=== PATIENT | female | born 1950 | race Caucasian/White ===

== ENCOUNTER 2018-02-04 19:56 | Day surgery (SDC) | payer MEDICARE, MEDICAID ==
[~2018-02-04] VITALS: Ht 167.6 cm; Wt 95.3 kg
--- OUTSIDE RECORDS SUMMARY | 2018-02-04 20:02 | XMS REPORT ---
Author Author FILI BAUMAN [facility] Address Unknown Phone Unavailable Care Team Providers Care Sanitation Associate Name Role Phone Dr. CISCO FRANKLIN PCP Unavailable Allergies Allergy Description Allergy Type No Known Drug Allergies Propensity to adverse reactions Procedures Procedure Type Procedure Description Date Physicians No codified procedures found for this patient. Results URINALYSIS Observation Test Name Observation Test Result Observation Test Units Observation Test Date Observation Test Time Color YELLOW 2012 12:13 Character CLEAR 12/24 12:13 Glucose NEGATIVE 08/2012 12:13 Bilirubin NEGATIVE 12:13 Ketones NEGATIVE 08/2012 12:13 Sp [place] >=1.030 12:13 Ph 6.0 12/24/2012 12:13 Protein NEGATIVE 08/2012 12:13 Urobilinogen 0.2 08/2012 12:13 Nitrite NEGATIVE 08/2012 12:13 Blood NEGATIVE H 08/2012 12:13 Leukocytes TRACEH 08/2012 12:13 Microscopic See Below 12/24/2012 12:13 Urine Volume 12 ml 12:13 Specimen Type SPUN 12:13 Bacteria RARE (0-10) 12/24/2012 12:13 WBC/ 0-2 12/24/2012 12:13 Culture Not indicat 12/24/2012 12:13 History of Immunizations Immunization Date no immunization entries Plan of Care Item Text No plan of care items. Procedure Date/Time/Initials Critical? Status No plan of care procedures. Medication List Medication Dose Units Frequency Start Date/Time Status none Problem List Problem Entered Date Resolved Date No known problems
--- OUTSIDE RECORDS SUMMARY | 2018-02-04 20:02 | XMS REPORT ---
Author Author FILI BAUMAN [facility] Address Unknown Phone Unavailable Care Team Providers Care Director Rehabilitation Program Name Role Phone Dr. CISCO FRANKLIN PCP Unavailable Allergies Allergy Description Allergy Type No Known Drug Allergies Propensity to adverse reactions Procedures Procedure Type Procedure Description Date Physicians No codified procedures found for this patient. Results No Procedures Performed Observation Test Name Observation Test Result Observation Test Units Observation Test Date Observation Test Time No result observations. Results Transcriptions Result Description Result Date Result Time XR FOOT LT COMPLETE, MIN OF 3 VIEWS 12/02/12 16:16 XR ANKLE LT COMPLETE, MIN OF 3 VIEWS 12/02/12 16:16 History of Immunizations Immunization Date no immunization entries Plan of Care Item Text No plan of care items. Procedure Date/Time/Initials Critical? Status No plan of care procedures. Medication List Medication Dose Units Frequency Start Date/Time Status none Problem List Problem Entered Date Resolved Date No known problems
--- OUTSIDE RECORDS SUMMARY | 2018-02-04 20:02 | XMS REPORT ---
Author Author FILI BAUMAN [facility] Address Unknown Phone Unavailable Care Team Providers Care Armor Senior Sergeant Name Role Phone Dr. CISCO FRANKLIN PCP [...] Transcriptions Result Description Result Date Result Time US RETROPERITONEAL COMPLETE 01/02/13 10: 44 CT ABDOMEN/PELVIS W/O CONTRAST 01/02/13 10:32 History of Immunizations Immunization Date no immunization entries Plan of Care Item Text No plan of care items. Procedure Date/Time/Initials Critical? Status No plan of care procedures. Medication List Medication Dose Units Frequency Start Date/Time Status none Problem List Problem Entered Date Resolved Date No known problems
--- OUTSIDE RECORDS SUMMARY | 2018-02-04 20:03 | XMS REPORT ---
Author Author Rogelio Prado Organization [facility] Address [address], [address] [place], [place] [address] Care Team Providers Care Tour Guide Name Role Phone Rogelio Prado Unavailable PROBLEMS Type Condition ICD9-CM Code EGE35-RO Code Onset Dates Condition Status SNOMED Code Problem Postmenopausal Z78.0 Active 03404751 Problem Intellectual disability F79 Active 37607316 Problem COPD (chronic obstructive pulmonary disease) J44.9 Active 09010017 Problem Hyperlipidemia E78.5 Active 18136210 Problem Hypertension I10 Active 21769768 Problem Depression, unspecified depression type F32.9 Active 06091658 Problem COPD (chronic obstructive pulmonary disease) with acute bronchitis J44.0 Active 423351005613872 Problem Angina pectoris I20.9 Active 125593368 Problem COPD exacerbation J44.1 Active 626516716 Problem Chronic obstructive pulmonary disease, unspecified COPD type J44.9 Active 97949062 Problem Constipation K59.00 Active 13936928 ALLERGIES Unknown Allergies SOCIAL HISTORY No smoking Hx information available PLAN OF CARE VITAL SIGNS MEDICATIONS Medication Instructions Dosage Frequency Start Date End Date Duration Status Levofloxacin 500 MG Orally Once a day 1 tablet 24h Dec, 5 days Active Symbicort 160-4.5 Inhalation Twice a day INHALE TWO PUFFS BY MOUTH EVERY 12 HOURS 12h 30 Active RESULTS No Results PROCEDURES No Known procedures IMMUNIZATIONS No Known Immunizations
--- OUTSIDE RECORDS SUMMARY | 2018-02-04 20:03 | XMS REPORT ---
Author Author Rogelio Prado Organization [facility] Address [address], [address] [place], [place] [address] Care Team Providers Care Roll Table Operator Name Role Phone Rogelio Prado Unavailable PROBLEMS Type Condition ICD9-CM Code [id number] Code Onset Dates Condition Status SNOMED Code Problem Postmenopausal Z78.0 Active 60528902 Problem Intellectual disability F79 Active 65609725 Problem COPD (chronic obstructive pulmonary disease) J44.9 Active 66755561 Assessment Urinary frequency R35.0 Sep, Active 139804843 Problem Hyperlipidemia E78.5 Active 14992926 Problem Hypertension I10 Active 23125433 Problem Depression, unspecified depression type F32.9 Active 85707302 Problem COPD (chronic obstructive pulmonary disease) with acute bronchitis J44.0 Active 360555541568421 Problem Angina pectoris I20.9 Active 220820426 Problem COPD exacerbation J44.1 Active 531931471 Problem Chronic obstructive pulmonary disease, unspecified COPD type J44.9 Active 26362374 Problem Constipation K59.00 Active 52673081 ALLERGIES Unknown Allergies SOCIAL HISTORY No smoking Hx information available PLAN OF CARE Activity Details Pending Test IH Urinalysis, dipstick only ,Reason: VITAL SIGNS MEDICATIONS Medication Instructions Dosage Frequency Start Date End Date Duration Status Mucinex 600 MG Orally every 12 hrs 1 tablet as needed 12h Active Trazodone HCl 100 MG Orally Once a day 1.5 tablet at bedtime 24h Active Ventolin HFA 108 (90 Base) MCG/ACT Inhalation every 4 hrs 2 puffs as needed 4h Active Nitrostat 0.4 MG Sublingual prn as directed Jan, Active Aspirin Adult Low Dose 81 MG Orally Once a day 1-2 tablet 24h Active Lisinopril-Hydrochlorothiazide 20-12.5 Orally Once a day 1 tablet 24h Active Multivitamin Adult - Active Albuterol Sulfate 2.5 mg Inhalation every 4 hrs prn 3 ml 4 Active Macrobid 100 MG Orally every 12 hrs 1 capsule with food 12h Jul, 7 day(s) Active Naproxen 375 MG Orally Twice a day 1 tablet 12h 30 days Active Symbicort 160-4.5 INHALE TWO PUFFS BY MOUTH EVERY 12 HOURS 30 Active Nexium 40 TAKE ONE CAPSULE BY MOUTH DAILY 30 Active Claritin 10 TAKE ONE TABLET BY MOUTH DAILY 90 Active Nitrostat 0.4 Sublingual prn as directed 30 Active Metoprolol Tartrate 50 TAKE ONE TABLET BY MOUTH TWICE A DAY 30 Active Flonase 50 USE ONE SPRAY IN EACH NOSTRIL TWO TIMES A DAY 30 Active Sulfamethoxazole-Trimethoprim 800-160 MG Orally Twice a day 1 tablet 12h Aug, 7 days Active Celexa 40 MG Orally Once a day 0.5 tablet 24h Active Albuterol Sulfate (2.5 MG/3ML) 0.083% Inhalation every 4 hrs prn 3 ml Jun, 30 days Active RESULTS No Results PROCEDURES Procedure Date Ordered Related Diagnosis Body Site URINE-NO MICRO September 27, 2016 IMMUNIZATIONS No Known Immunizations
--- OUTSIDE RECORDS SUMMARY | 2018-02-04 20:03 | XMS REPORT ---
Author Author Rogelio Prado Organization [facility] Address [address], [address] [place], [place] [address] Care Team Providers Care Snap Shearer Name Role Phone Rogelio Prado Unavailable PROBLEMS Type Condition ICD9-CM Code [id number] Code Onset Dates Condition Status SNOMED Code Problem Postmenopausal Z78.0 Active 10344314 Problem Intellectual disability F79 Active 30696469 Problem COPD (chronic obstructive pulmonary disease) J44.9 Active 97973257 Problem Hyperlipidemia E78.5 Active 95649334 Problem Hypertension I10 Active 08774370 Problem Depression, unspecified depression type F32.9 Active 26400495 Problem COPD (chronic obstructive pulmonary disease) with acute bronchitis J44.0 Active 473431831605769 Problem Angina pectoris I20.9 Active 413550524 Problem COPD exacerbation J44.1 Active 211708998 Problem Chronic obstructive pulmonary disease, unspecified COPD type J44.9 Active 81439729 Problem Constipation K59.00 Active 28231100 ALLERGIES Unknown Allergies SOCIAL HISTORY No smoking Hx information available PLAN OF CARE VITAL SIGNS MEDICATIONS Unknown Medications RESULTS No Results PROCEDURES No Known procedures IMMUNIZATIONS No Known Immunizations
--- OUTSIDE RECORDS SUMMARY | 2018-02-04 20:03 | XMS REPORT ---
Author Author Sarina Turk [facility] Address [address], [address] [place], [place] [address] Care Team Providers Care Section Leader And Machine Setter Name Role Phone OsminSarina garland Unavailable PROBLEMS Type Condition ICD9-CM Code [id number] Code Onset Dates Condition Status SNOMED Code Problem Postmenopausal Z78.0 Active 01903715 Problem Intellectual disability F79 Active 34737656 Problem COPD (chronic obstructive pulmonary disease) J44.9 Active 13476593 Assessment Acute cystitis with hematuria N30.01 Sep, Active 54776056 Problem Hyperlipidemia E78.5 Active 82439882 Problem Hypertension I10 Active 56164555 Problem Depression, unspecified depression type F32.9 Active 18217776 Problem COPD (chronic obstructive pulmonary disease) with acute bronchitis J44.0 Active 588779847611973 Problem Angina pectoris I20.9 Active 361016805 Problem COPD exacerbation J44.1 Active 999261994 Problem Chronic obstructive pulmonary disease, unspecified COPD type J44.9 Active 38046685 Problem Constipation K59.00 Active 26159424 ALLERGIES Substance Reaction Event Type Date Status PCN Unknown Drug Allergy Sep, Active Zithromax Unknown Drug Allergy Sep, Active SOCIAL HISTORY No smoking Hx information available PLAN OF CARE VITAL SIGNS Weight 204.7 lbs 2016-09-28 Heart Rate 70 /min 2016-09-28 Height 64 in 2016-09-28 BMI 35.13 kg/m2 2016-09-28 Blood pressure systolic 142 mm Hg 2016-09-28 Blood pressure diastolic 92 mm Hg 2016-09-28 MEDICATIONS Medication Instructions Dosage Frequency Start Date End Date Duration Status Nitrostat 0.4 Sublingual prn as directed 30 Active Celexa 40 MG Orally Once a day 0.5 tablet 24h Active Symbicort 160-4.5 INHALE TWO PUFFS BY MOUTH EVERY 12 HOURS 30 Active Albuterol Sulfate (2.5 MG/3ML) 0.083% Inhalation every 4 hrs prn 3 ml 20 Jun, 2016 30 days Active Claritin 10 TAKE ONE TABLET BY MOUTH DAILY 90 Active Metoprolol Tartrate 50 TAKE ONE TABLET BY MOUTH TWICE A DAY 30 Active Nitrostat 0.4 MG Sublingual prn as directed Jan, Active Aspirin Adult Low Dose 81 MG Orally Once a day 1-2 tablet 24h Active Linzess 145 MCG PO QD 1 capsule 24h Active Alendronate Sodium 5 MG Orally Once a day 1 tablet 24h May, 30 day(s) Active Flonase 50 USE ONE SPRAY IN EACH NOSTRIL TWO TIMES A DAY 30 Active Ventolin HFA 108 (90 Base) MCG/ACT Inhalation every 4 hrs 2 puffs as needed 4h Active Multivitamin Adult - Active Meloxicam 7.5 TAKE ONE TABLET BY MOUTH TWICE A DAY 30 Active Nexium 40 TAKE ONE CAPSULE BY MOUTH DAILY 30 Active Bactrim DS 800-160 MG Orally Twice a day 1 tablet 12h Sep, 7 days Active Lisinopril-Hydrochlorothiazide 20-12.5 Orally Once a day 1 tablet 24h Active Trazodone HCl 100 MG Orally Once a day 1.5 tablet at bedtime 24h Active RESULTS Name Result Date Reference Range IH Urinalysis, dipstick only Specific [place] 1.015 pH 6 Leukocytes +1 Nitrates tr Protein +1 Glucose neg Ketones neg Urobilinogen +1 Bilirubin neg Blood +1 PROCEDURES Procedure Date Ordered Related Diagnosis Body Site URINE-NO MICRO September 28, 2016 Office Visit, Est Pt., Level 3 September 28, 2016 IMMUNIZATIONS No Known Immunizations
--- OUTSIDE RECORDS SUMMARY | 2018-02-04 20:03 | XMS REPORT ---
Author Author Rogelio Prado Organization [facility] Address [address], [address] [place], [place] [address] Care Team Providers Care Professor Of Early Childhood Education Name Role Phone Rogelio Prado Unavailable PROBLEMS Type Condition ICD9-CM Code PIP48-HS Code Onset Dates Condition Status SNOMED Code Problem COPD (chronic obstructive pulmonary disease) J44.9 Active 48327998 Problem COPD exacerbation J44.1 Active 033030005 Problem Intellectual disability F79 Active 71199315 Problem Hyperlipidemia E78.5 Active 76564848 Problem Hypertension I10 Active 87188426 Problem Postmenopausal Z78.0 Active 68877878 Problem Closed fracture of one rib of right side with routine healing, subsequent encounter S22.31XD Active 91018009 Problem Depression, unspecified depression type F32.9 Active 50286126 Problem Constipation K59.00 Active 56877690 Problem Angina pectoris I20.9 Active 258470040 Problem COPD (chronic obstructive pulmonary disease) with acute bronchitis J44.0 Active 953705367710026 Problem Chronic obstructive pulmonary disease, unspecified COPD type J44.9 Active 35985070 ALLERGIES Substance Reaction Event Type Date Status PCN Unknown Drug Allergy Feb, Active Zithromax Unknown Drug Allergy Feb, Active SOCIAL HISTORY Never Assessed PLAN OF CARE Activity Details Follow Up 3 Months Reason: VITAL SIGNS Weight 205.3 lbs 2017-03-12 Heart Rate 78 /min 2017-03-12 Height 64 in 2017-03-12 BMI 35.24 kg/m2 2017-03-12 Blood pressure systolic 94 mm Hg 2017-03-12 Blood pressure diastolic 80 mm Hg 2017-03-12 MEDICATIONS Medication Instructions Dosage Frequency Start Date End Date Duration Status Celexa 40 MG Orally Once a day 0.5 tablet 24h Active Nexium 40 TAKE ONE CAPSULE BY MOUTH DAILY 30 Active Nitrostat 0.4 MG Sublingual prn as directed Jan, Active Trazodone HCl 100 MG Orally Once a day 1.5 tablet at bedtime 24h Active Linzess 145 MCG PO QD 1 capsule 24h Active Lisinopril-Hydrochlorothiazide 20-12.5 Orally Once a day 1 tablet 24h 90 days Active Albuterol Sulfate (2.5 MG/3ML) 0.083% Inhalation every 4 hrs prn 3 ml Jun, 30 days Active Alendronate Sodium 5 MG Orally Once a day 1 tablet 24h May, 30 day(s) Active Meloxicam 7.5 TAKE ONE TABLET BY MOUTH TWICE A DAY 30 Active Metoprolol Tartrate 50 TAKE ONE TABLET BY MOUTH TWICE A DAY 30 Active Multivitamin Adult - Active Triamcinolone Acetonide 0.1 APPLY TO AFFECTED AREA(S) TWO TIMES A DAY 30 Active Ventolin HFA 108 (90 Base) MCG/ACT Inhalation every 4 hrs 2 puffs as needed 4h Active Claritin 10 TAKE ONE TABLET BY MOUTH DAILY 90 Active Flonase 50 USE ONE SPRAY IN EACH NOSTRIL TWO TIMES A DAY 30 Active Aspirin Adult Low Dose 81 MG Orally Once a day 1-2 tablet 24h Active Symbicort 160-4.5 Inhalation Twice a day INHALE TWO PUFFS BY MOUTH EVERY 12 HOURS 12h 30 Active RESULTS No Results PROCEDURES Procedure Date Ordered Result Body Site * Flu vaccine, adult Mar 12, 2017 IMMUNIZATIONS Vaccine Route Administration Date Status * Flu vaccine, adult IM Intramuscular Mar 12, 2017 Administered MEDICAL (GENERAL) HISTORY Type Description Date Medical History Hypertension Medical History Generalized osteoarthrosis, unspecified site Medical History Cataracts, bilateral Medical History Anxiety state, unspecified Medical History Major depressive disorder, recurrent episode, moderate Medical History Urinary incontinence Medical History Renal stone Medical History Urticaria Medical History Chronic airway obstruction Medical History Posterior cervical lymphadenopathy Medical History Costochondritis Medical History Easy bruising Medical History Arthralgia Medical History Myalgia Medical History Dyspareunia Medical History Prolapse of female pelvic organs Medical History COPD (chronic obstructive pulmonary disease) Medical History Intellectual disability Medical History COPD exacerbation Medical History Closed fracture of one rib of right side with routine healing , subsequent encounter Surgical History cholecystectomy Surgical History LAITH-BSO 1970 Surgical History bladder mesh Surgical History section Surgical History ankle surgery Hospitalization History pneumonia 12/2016
--- OUTSIDE RECORDS SUMMARY | 2018-02-04 20:03 | XMS REPORT ---
Author Author Rogelio Prado Organization [facility] Address [address], [address] [place], [place] [address] Care Team Providers Care Carpentry Foreman Name Role Phone Rogelio Prado Unavailable PROBLEMS Type Condition ICD9-CM Code [id number] Code Onset Dates Condition Status SNOMED Code Problem Postmenopausal Z78.0 Active 75293804 Problem Intellectual disability F79 Active 36113356 Problem COPD (chronic obstructive pulmonary disease) J44.9 Active 14096310 Problem Hyperlipidemia E78.5 Active 81431661 Problem Hypertension I10 Active 06740620 Problem Depression, unspecified depression type F32.9 Active 10108609 Problem COPD (chronic obstructive pulmonary disease) with acute bronchitis J44.0 Active 160258936779829 Problem Angina pectoris I20.9 Active 825038481 Problem COPD exacerbation J44.1 Active 375244962 Problem Chronic obstructive pulmonary disease, unspecified COPD type J44.9 Active 12770680 Problem Constipation K59.00 Active 05461463 ALLERGIES Unknown Allergies SOCIAL HISTORY No smoking Hx information available PLAN OF CARE VITAL SIGNS MEDICATIONS Unknown Medications RESULTS No Results PROCEDURES No Known procedures IMMUNIZATIONS No Known Immunizations
--- OUTSIDE RECORDS SUMMARY | 2018-02-04 20:03 | XMS REPORT ---
Author Author Rogelio Prado Organization [facility] Address [address], [address] [place], [place] [address] Care Team Providers Care Center Aisle Cashier Name Role Phone Rogelio Prado Unavailable PROBLEMS Type Condition ICD9-CM Code [id number] Code Onset Dates Condition Status SNOMED Code Problem Postmenopausal Z78.0 Active 63862791 Problem Intellectual disability F79 Active 39368483 Problem COPD (chronic obstructive pulmonary disease) J44.9 Active 30959149 Problem Hyperlipidemia E78.5 Active 40193879 Problem Hypertension I10 Active 59285817 Problem Depression, unspecified depression type F32.9 Active 72158427 Problem COPD (chronic obstructive pulmonary disease) with acute bronchitis J44.0 Active 517267535484609 Problem Angina pectoris I20.9 Active 813073013 Problem COPD exacerbation J44.1 Active 033259910 Problem Chronic obstructive pulmonary disease, unspecified COPD type J44.9 Active 53946217 Problem Constipation K59.00 Active 70602518 ALLERGIES Unknown Allergies SOCIAL HISTORY No smoking Hx information available PLAN OF CARE VITAL SIGNS MEDICATIONS Medication Instructions Dosage Frequency Start Date End Date Duration Status Lisinopril-Hydrochlorothiazide 20-12.5 Orally Once a day 1 tablet 24h 90 days Active RESULTS No Results PROCEDURES No Known procedures IMMUNIZATIONS No Known Immunizations
--- OUTSIDE RECORDS SUMMARY | 2018-02-04 20:04 | XMS REPORT ---
Author Author Rogelio Prado Organization [facility] Address [address], [address] [place], [place] [address] Care Team Providers Care Cast Iron Drain Pipe Layer Name Role Phone Rogelio Prado Unavailable PROBLEMS Type Condition ICD9-CM Code HDK50-RB Code Onset Dates Condition Status SNOMED Code Problem COPD (chronic obstructive pulmonary disease) J44.9 Active 88346869 Problem COPD exacerbation J44.1 Active 722325092 Problem Intellectual disability F79 Active 82446816 Problem Hyperlipidemia E78.5 Active 21765257 Problem Hypertension I10 Active 96407173 Problem Postmenopausal Z78.0 Active 28381955 Problem Closed fracture of one rib of right side with routine healing, subsequent encounter S22.31XD Active 67342943 Problem Depression, unspecified depression type F32.9 Active 34651372 Problem Constipation K59.00 Active 97139662 Problem Angina pectoris I20.9 Active 834875381 Problem COPD (chronic obstructive pulmonary disease) with acute bronchitis J44.0 Active 787296844535842 Problem Chronic obstructive pulmonary disease, unspecified COPD type J44.9 Active 26074110 ALLERGIES No Information SOCIAL HISTORY Never Assessed PLAN OF CARE VITAL SIGNS MEDICATIONS Medication Instructions Dosage Frequency Start Date End Date Duration Status Lisinopril-Hydrochlorothiazide 20-12.5 Orally bid 1 tablet 12h 90 days Active RESULTS No Results PROCEDURES No Known procedures IMMUNIZATIONS No Known Immunizations MEDICAL (GENERAL) HISTORY Type Description Date Medical [...] encounter Surgical History cholecystectomy Surgical History LAITH-BSO 1969 Surgical History bladder mesh Surgical History section Surgical History ankle surgery Hospitalization History pneumonia 12/2016
--- OUTSIDE RECORDS SUMMARY | 2018-02-04 20:04 | XMS REPORT ---
Author Author Rogelio Prado Organization [facility] Address [address], [address] [place], [place] [address] Care Team Providers Care Reticle Printer Name Role Phone Rogelio Prado Unavailable PROBLEMS Type Condition ICD9-CM Code [id number] Code Onset Dates Condition Status SNOMED Code Problem Postmenopausal Z78.0 Active 42243381 Problem Intellectual disability F79 Active 46771084 Problem COPD (chronic obstructive pulmonary disease) J44.9 Active 19120067 Problem Hyperlipidemia E78.5 Active 23420368 Problem Hypertension I10 Active 95006204 Problem Depression, unspecified depression type F32.9 Active 07551885 Problem COPD (chronic obstructive pulmonary disease) with acute bronchitis J44.0 Active 526171436733881 Problem Angina pectoris I20.9 Active 465130595 Problem COPD exacerbation J44.1 Active 722524420 Problem Chronic obstructive pulmonary disease, unspecified COPD type J44.9 Active 84959285 Problem Constipation K59.00 Active 31550866 ALLERGIES Unknown Allergies SOCIAL HISTORY No smoking Hx information available PLAN OF CARE VITAL SIGNS MEDICATIONS Medication Instructions Dosage Frequency Start Date End Date Duration Status Guaifenesin-Codeine 100-10 MG/5ML Orally every 4 hrs prn 5 ml Jan, 15 days Active RESULTS No Results PROCEDURES No Known procedures IMMUNIZATIONS No Known Immunizations
--- OUTSIDE RECORDS SUMMARY | 2018-02-04 20:04 | XMS REPORT ---
Author Author Rogelio Prado Organization [facility] Address [address], [address] [place], [place] [address] Care Team Providers Care Supervisor Blasting Name Role Phone Rogelio Prado Unavailable PROBLEMS Type Condition ICD9-CM Code RKD25-MS Code Onset Dates Condition Status SNOMED Code Problem Postmenopausal Z78.0 Active 13785820 Problem Intellectual disability F79 Active 54284034 Problem COPD (chronic obstructive pulmonary disease) J44.9 Active 62839114 Problem Hyperlipidemia E78.5 Active 84476355 Problem Hypertension I10 Active 77419008 Problem Depression, unspecified depression type F32.9 Active 44739270 Problem COPD (chronic obstructive pulmonary disease) with acute bronchitis J44.0 Active 556198804559112 Problem Angina pectoris I20.9 Active 296947241 Problem COPD exacerbation J44.1 Active 153253140 Problem Chronic obstructive pulmonary disease, unspecified COPD type J44.9 Active 63789077 Problem Constipation K59.00 Active 85991188 ALLERGIES Unknown Allergies SOCIAL HISTORY No smoking Hx information available PLAN OF CARE VITAL SIGNS MEDICATIONS Unknown Medications RESULTS No Results PROCEDURES No Known procedures IMMUNIZATIONS No Known Immunizations
--- OUTSIDE RECORDS SUMMARY | 2018-02-04 20:04 | XMS REPORT ---
Author Author Rogelio Prado Organization [facility] Address [address], [address] [place], [place] [address] Care Team Providers Care Satellite Dish Installer Name Role Phone Rogelio Prado Unavailable PROBLEMS Type Condition ICD9-CM Code [id number] Code Onset Dates Condition Status SNOMED Code Problem Postmenopausal Z78.0 Active 28147204 Problem Intellectual disability F79 Active 82265744 Problem COPD (chronic obstructive pulmonary disease) J44.9 Active 93070445 Problem Hyperlipidemia E78.5 Active 35997091 Problem Hypertension I10 Active 40413452 Problem Depression, unspecified depression type F32.9 Active 87035796 Problem COPD (chronic obstructive pulmonary disease) with acute bronchitis J44.0 Active 574655258450135 Problem Angina pectoris I20.9 Active 317523667 Problem COPD exacerbation J44.1 Active 441469166 Problem Chronic obstructive pulmonary disease, unspecified COPD type J44.9 Active 50741852 Problem Constipation K59.00 Active 64441156 ALLERGIES Unknown Allergies SOCIAL HISTORY No smoking Hx information available PLAN OF CARE VITAL SIGNS MEDICATIONS Unknown Medications RESULTS No Results PROCEDURES No Known procedures IMMUNIZATIONS No Known Immunizations
--- OUTSIDE RECORDS SUMMARY | 2018-02-04 20:04 | XMS REPORT ---
Author Author Rogelio Prado Organization [facility] Address [address], [address] [place], [place] [address] Care Team Providers Care Supervisor Order Takers Name Role Phone Rogelio Prado Unavailable PROBLEMS Type Condition ICD9-CM Code [id number] Code Onset Dates Condition Status SNOMED Code Problem Postmenopausal Z78.0 Active 11267794 Problem Intellectual disability F79 Active 63119358 Problem COPD (chronic obstructive pulmonary disease) J44.9 Active 66408044 Problem Hyperlipidemia E78.5 Active 46442714 Problem Hypertension I10 Active 63878859 Problem Depression, unspecified depression type F32.9 Active 51622427 Problem COPD (chronic obstructive pulmonary disease) with acute bronchitis J44.0 Active 763934198046428 Problem Angina pectoris I20.9 Active 751201073 Problem COPD exacerbation J44.1 Active 637640804 Problem Chronic obstructive pulmonary disease, unspecified COPD type J44.9 Active 30907960 Problem Constipation K59.00 Active 25059907 ALLERGIES Unknown Allergies SOCIAL HISTORY No smoking Hx information available PLAN OF CARE VITAL SIGNS MEDICATIONS Unknown Medications RESULTS No Results PROCEDURES No Known procedures IMMUNIZATIONS No Known Immunizations
--- OUTSIDE RECORDS SUMMARY | 2018-02-04 20:04 | XMS REPORT ---
Author Author [place] City[place] [facility] Address [address], [address] [place], [place] [address] Care Team Providers Care Side Seam Tender Name Role Phone Jaimie Rodriguez Unavailable PROBLEMS Type Condition ICD9-CM Code [id number] Code Onset Dates Condition Status SNOMED Code Problem Postmenopausal Z78.0 Active 49777332 Problem Intellectual disability F79 Active 30258246 Problem COPD (chronic obstructive pulmonary disease) J44.9 Active 99339829 Problem Hyperlipidemia E78.5 Active 10868300 Problem Hypertension I10 Active 60620466 Problem Depression, unspecified depression type F32.9 Active 26531526 Problem COPD (chronic obstructive pulmonary disease) with acute bronchitis J44.0 Active 411609844463342 Problem Angina pectoris I20.9 Active 245147120 Problem COPD exacerbation J44.1 Active 442643302 Problem Chronic obstructive pulmonary disease, unspecified COPD type J44.9 Active 75364723 Problem Constipation K59.00 Active 62964322 ALLERGIES Substance Reaction Event Type Date Status PCN Unknown Drug Allergy Jan, Active Zithromax Unknown Drug Allergy Jan, Active SOCIAL HISTORY No smoking Hx information available PLAN OF CARE Activity Details Follow Up prn Reason: VITAL SIGNS Weight 208 lbs 2017-01-28 Heart Rate 68 /min 2017-01-28 Height 64 in 2017-01-28 BMI 35.70 kg/m2 2017-01-28 Blood pressure systolic 120 mm Hg 2017-01-28 Blood pressure diastolic 72 mm Hg 2017-01-28 MEDICATIONS Medication Instructions Dosage Frequency Start Date End Date Duration Status Celexa 40 MG Orally Once a day 0.5 tablet 24h Active Alendronate Sodium 5 MG Orally Once a day 1 tablet 24h May, 30 day(s) Active Ventolin HFA 108 (90 Base) MCG/ACT Inhalation every 4 hrs 2 puffs as needed 4h Active Claritin 10 TAKE ONE TABLET BY MOUTH DAILY 90 Active Nexium 40 TAKE ONE CAPSULE BY MOUTH DAILY 30 Active Meloxicam 7.5 TAKE ONE TABLET BY MOUTH TWICE A DAY 30 Active Albuterol Sulfate (2.5 MG/3ML) 0.083% Inhalation every 4 hrs prn 3 ml Jun, 30 days Active Linzess 145 MCG PO QD 1 capsule 24h Active Lisinopril-Hydrochlorothiazide 20-12.5 Orally Once a day 1 tablet 24h 90 days Active Metoprolol Tartrate 50 TAKE ONE TABLET BY MOUTH TWICE A DAY 30 Active Trazodone HCl 100 MG Orally Once a day 1.5 tablet at bedtime 24h Active Triamcinolone Acetonide 0.1 APPLY TO AFFECTED AREA(S) TWO TIMES A DAY 30 Active Nitrostat 0.4 MG Sublingual prn as directed Jan, Active Aspirin Adult Low Dose 81 MG Orally Once a day 1-2 tablet 24h Active Flonase 50 USE ONE SPRAY IN EACH NOSTRIL TWO TIMES A DAY 30 Active Multivitamin Adult - Active Symbicort 160-4.5 Inhalation Twice a day INHALE TWO PUFFS BY MOUTH EVERY 12 HOURS 12h 30 Active RESULTS No Results PROCEDURES Procedure Date Ordered Related Diagnosis Body Site Office Visit, Est Pt., Level 3 Jan 28, 2017 IMMUNIZATIONS No Known Immunizations
--- OUTSIDE RECORDS SUMMARY | 2018-02-04 20:04 | XMS REPORT ---
Author Author Rogelio Prado Organization [facility] Address [address], [address] [place], [place] [address] Care Team Providers Care Ladle Handler Name Role Phone Rogelio Prado Unavailable PROBLEMS Type Condition ICD9-CM Code PNV30-QQ Code Onset Dates Condition Status SNOMED Code Problem Postmenopausal Z78.0 Active 22580242 Problem Intellectual disability F79 Active 54601176 Problem COPD (chronic obstructive pulmonary disease) J44.9 Active 90316570 Problem Hyperlipidemia E78.5 Active 89500465 Problem Hypertension I10 Active 20501025 Problem Depression, unspecified depression type F32.9 Active 96265330 Problem COPD (chronic obstructive pulmonary disease) with acute bronchitis J44.0 Active 899776080311713 Problem Angina pectoris I20.9 Active 844550340 Problem COPD exacerbation J44.1 Active 597669252 Problem Chronic obstructive pulmonary disease, unspecified COPD type J44.9 Active 80938220 Problem Constipation K59.00 Active 00301167 ALLERGIES Unknown Allergies SOCIAL HISTORY No smoking Hx information available PLAN OF CARE VITAL SIGNS MEDICATIONS Unknown Medications RESULTS No Results PROCEDURES No Known procedures IMMUNIZATIONS No Known Immunizations
--- OUTSIDE RECORDS SUMMARY | 2018-02-04 20:04 | XMS REPORT ---
Author Author Rogelio Prado Organization [facility] Address [address], [address] [place], [place] [address] Care Team Providers Care Veterinary Poultry Inspector Name Role Phone Rogelio Prado Unavailable PROBLEMS Type Condition ICD9-CM Code [id number] Code Onset Dates Condition Status SNOMED Code Problem COPD (chronic obstructive pulmonary disease) J44.9 Active 97029243 Problem COPD exacerbation J44.1 Active 856086422 Problem Intellectual disability F79 Active 59095750 Problem Hyperlipidemia E78.5 Active 74764507 Problem Hypertension I10 Active 68443003 Problem Postmenopausal Z78.0 Active 44808547 Problem Closed fracture of one rib of right side with routine healing, subsequent encounter S22.31XD Active 29176103 Problem Depression, unspecified depression type F32.9 Active 92876938 Problem Constipation K59.00 Active 21424700 Problem Angina pectoris I20.9 Active 357511330 Problem COPD (chronic obstructive pulmonary disease) with acute bronchitis J44.0 Active 689095830298648 Problem Chronic obstructive pulmonary disease, unspecified COPD type J44.9 Active 57177166 ALLERGIES Unknown Allergies SOCIAL HISTORY No smoking Hx information available PLAN OF CARE Activity Details Pending Test * Urine at hospital VITAL SIGNS MEDICATIONS Unknown Medications RESULTS No Results PROCEDURES No Known procedures IMMUNIZATIONS No Known Immunizations
--- OUTSIDE RECORDS SUMMARY | 2018-02-04 20:04 | XMS REPORT ---
Author Author Sarina Turk [facility] Address [address], [address] [place], [place] [address] Care Team Providers Care Gas Engine Operator Name Role Phone OsminArgelia garlandan Unavailable PROBLEMS Type Condition ICD9-CM Code PBD85-VA Code Onset Dates Condition Status SNOMED Code Problem Postmenopausal Z78.0 Active 46706411 Problem Intellectual disability F79 Active 57981490 Problem COPD (chronic obstructive pulmonary disease) J44.9 Active 19087396 Problem Hyperlipidemia E78.5 Active 70406067 Problem Hypertension I10 Active 55996012 Problem Depression, unspecified depression type F32.9 Active 95672620 Problem COPD (chronic obstructive pulmonary disease) with acute bronchitis J44.0 Active 620333696532757 Problem Angina pectoris I20.9 Active 433931838 Problem COPD exacerbation J44.1 Active 868418456 Problem Chronic obstructive pulmonary disease, unspecified COPD type J44.9 Active 83726056 Problem Constipation K59.00 Active 63964602 ALLERGIES Substance Reaction Event Type Date Status PCN Unknown Drug Allergy October, Active Zithromax Unknown Drug Allergy October, Active SOCIAL HISTORY No smoking Hx information available PLAN OF CARE Activity Details Follow Up prn Reason: VITAL SIGNS Weight 204.6 lbs 2016-11-07 Height 64 in 2016-11-07 BMI 35.12 kg/m2 2016-11-07 Blood pressure systolic 118 mm Hg 2016-11-07 Blood pressure diastolic 86 mm Hg 2016-11-07 MEDICATIONS Medication Instructions Dosage Frequency Start Date End Date Duration Status Aspirin Adult Low Dose 81 MG Orally Once a day 1-2 tablet 24h Active Linzess 145 MCG PO QD 1 capsule 24h Active Ventolin HFA 108 (90 Base) MCG/ACT Inhalation every 4 hrs 2 puffs as needed 4h Active Nitrostat 0.4 MG Sublingual prn as directed Jan, Active Nitrostat 0.4 Sublingual prn as directed 30 Active Flonase 50 USE ONE SPRAY IN EACH NOSTRIL TWO TIMES A DAY 30 Active Albuterol Sulfate 2.5 mg Inhalation every 4 hrs prn 3 ml 4 Active Symbicort 160-4.5 INHALE TWO PUFFS BY MOUTH EVERY 12 HOURS 30 Active Multivitamin Adult - Active Meloxicam 7.5 TAKE ONE TABLET BY MOUTH TWICE A DAY 30 Active Nexium 40 TAKE ONE CAPSULE BY MOUTH DAILY 30 Active Claritin 10 TAKE ONE TABLET BY MOUTH DAILY 90 Active Albuterol Sulfate (2.5 MG/3ML) 0.083% Inhalation every 4 hrs prn 3 ml 20 Jun, 2016 30 days Active Metoprolol Tartrate 50 TAKE ONE TABLET BY MOUTH TWICE A DAY 30 Active Trazodone HCl 100 MG Orally Once a day 1.5 tablet at bedtime 24h Active Alendronate Sodium 5 MG Orally Once a day 1 tablet 24h May, 30 day(s) Active Celexa 40 MG Orally Once a day 0.5 tablet 24h Active Lisinopril-Hydrochlorothiazide 20-12.5 Orally Once a day 1 tablet 24h 90 days Active RESULTS No Results PROCEDURES Procedure Date Ordered Related Diagnosis Body Site Office Visit, Est Pt., Level 3 November 07, 2016 IMMUNIZATIONS No Known Immunizations
--- OUTSIDE RECORDS SUMMARY | 2018-02-04 20:05 | XMS REPORT ---
Author Author Rogelio Prado Organization [facility] Address [address], [address] [place], [place] [address] Care Team Providers Care Road Machine Operator Name Role Phone Rogelio Prado Unavailable PROBLEMS Type Condition ICD9-CM Code BFP60-GT Code Onset Dates Condition Status SNOMED Code Problem COPD (chronic obstructive pulmonary disease) J44.9 Active 54833487 Problem COPD exacerbation J44.1 Active 322904530 Problem Intellectual disability F79 Active 69034292 Problem Hyperlipidemia E78.5 Active 75748586 Problem Hypertension I10 Active 16241198 Problem Postmenopausal Z78.0 Active 43708707 Problem Closed fracture of one rib of right side with routine healing, subsequent encounter S22.31XD Active 74226790 Problem Depression, unspecified depression type F32.9 Active 45274841 Problem Constipation K59.00 Active 40777329 Problem Angina pectoris I20.9 Active 386871707 Problem COPD (chronic obstructive pulmonary disease) with acute bronchitis J44.0 Active 109118853548294 Problem Chronic obstructive pulmonary disease, unspecified COPD type J44.9 Active 99219743 ALLERGIES No Information SOCIAL HISTORY Never Assessed PLAN OF CARE Activity Details Pending Test * Hgb A1C VITAL SIGNS MEDICATIONS Unknown Medications RESULTS No [...]
--- OUTSIDE RECORDS SUMMARY | 2018-02-04 20:05 | XMS REPORT ---
Author Author [place]aimie lim [facility] Address [address], [address] [place], [place] [address] Care Team Providers Care Preschool Teacher Name Role Phone Jaimie Rodriguez Unavailable PROBLEMS Type Condition ICD9-CM Code [id number] Code Onset Dates Condition Status SNOMED Code Problem Postmenopausal Z78.0 Active 77343648 Problem Intellectual disability F79 Active 77080842 Problem COPD (chronic obstructive pulmonary disease) J44.9 Active 56032901 Problem Hyperlipidemia E78.5 Active 45395779 Problem Hypertension I10 Active 61596638 Problem Depression, unspecified depression type F32.9 Active 34153199 Problem COPD (chronic obstructive pulmonary disease) with acute bronchitis J44.0 Active 925724154207940 Problem Angina pectoris I20.9 Active 549020141 Problem COPD exacerbation J44.1 Active 365838786 Problem Chronic obstructive pulmonary disease, unspecified COPD type J44.9 Active 18038922 Problem Constipation K59.00 Active 41650968 ALLERGIES Substance Reaction Event Type Date Status PCN Unknown Drug Allergy Dec, Active Zithromax Unknown Drug Allergy Dec, Active SOCIAL HISTORY No smoking Hx information available PLAN OF CARE Activity Details Follow Up prn Reason: VITAL SIGNS Weight 205.2 lbs 2017-01-02 Heart Rate 81 /min 2017-01-02 Height 64 in 2017-01-02 Oximetry 97 % 2017-01-02 BMI 35.22 kg/m2 2017-01-02 Blood pressure systolic 100 mm Hg 2017-01-02 Blood pressure diastolic 64 mm Hg 2017-01-02 MEDICATIONS Medication Instructions Dosage Frequency Start Date End Date Duration Status Trazodone HCl 100 MG Orally Once a day 1.5 tablet at bedtime 24h Active Claritin 10 TAKE ONE TABLET BY MOUTH DAILY 90 Active Ventolin HFA 108 (90 Base) MCG/ACT Inhalation every 4 hrs 2 puffs as needed 4h Active Aspirin Adult Low Dose 81 MG Orally Once a day 1-2 tablet 24h Active Multivitamin Adult - Active Nexium 40 TAKE ONE CAPSULE BY MOUTH DAILY 30 Active Ventolin HFA 90 INHALE ONE TO TWO PUFFS BY MOUTH EVERY 4 HOURS NEEDED FOR SHORTNESS OF BREATH FOR COUGH 16 Active Meloxicam 7.5 TAKE ONE TABLET BY MOUTH TWICE A DAY 30 Active Albuterol Sulfate (2.5 MG/3ML) 0.083% Inhalation every 4 hrs prn 3 ml Jun, 30 days Active Nitrostat 0.4 Sublingual prn as directed 30 Active Linzess 145 MCG PO QD 1 capsule 24h Active Alendronate Sodium 5 MG Orally Once a day 1 tablet 24h May, 30 day(s) Active Triamcinolone Acetonide 0.1 APPLY TO AFFECTED AREA(S) TWO TIMES A DAY 30 Active Albuterol Sulfate 2.5 mg Inhalation every 4 hrs prn 3 ml 4 Active Nitrostat 0.4 MG Sublingual prn as directed Jan, Active Celexa 40 MG Orally Once a day 0.5 tablet 24h Active Symbicort 160-4.5 INHALE TWO PUFFS BY MOUTH EVERY 12 HOURS 30 Active Flonase 50 USE ONE SPRAY IN EACH NOSTRIL TWO TIMES A DAY 30 Active Metoprolol Tartrate 50 TAKE ONE TABLET BY MOUTH TWICE A DAY 30 Active Lisinopril-Hydrochlorothiazide 20-12.5 Orally Once a day 1 tablet 24h 90 days Active RESULTS No Results PROCEDURES Procedure Date Ordered Related Diagnosis Body Site Office Visit, Est Pt., Level 3 January 02, 2017 IMMUNIZATIONS No Known Immunizations
--- OUTSIDE RECORDS SUMMARY | 2018-02-04 20:05 | XMS REPORT ---
Author Author ClaytonJaimie lim [facility] Address [address], [address] [place], [place] [address] Care Team Providers Care Pharmacy Technician Per Diem Name Role Phone Jaimie Leslie Unavailable PROBLEMS Type Condition ICD9-CM Code [id number] Code Onset Dates Condition Status SNOMED Code Problem Postmenopausal Z78.0 Active 91688489 Problem Intellectual disability F79 Active 12760711 Problem COPD (chronic obstructive pulmonary disease) J44.9 Active 54207764 Problem Hyperlipidemia E78.5 Active 22738738 Problem Hypertension I10 Active 27624410 Problem Depression, unspecified depression type F32.9 Active 17633715 Problem COPD (chronic obstructive pulmonary disease) with acute bronchitis J44.0 Active 272625506600752 Problem Angina pectoris I20.9 Active 874294054 Problem COPD exacerbation J44.1 Active 619816227 Problem Chronic obstructive pulmonary disease, unspecified COPD type J44.9 Active 10721184 Problem Constipation K59.00 Active 52074091 ALLERGIES Substance Reaction Event Type Date Status PCN Unknown Drug Allergy October, Active Zithromax Unknown Drug Allergy October, Active SOCIAL HISTORY No smoking Hx information available PLAN OF CARE Activity Details Follow Up prn Reason: Pending Test IH Urinalysis, dipstick only Pending Test * Urine C&S VITAL SIGNS Weight 205.6 lbs 2016-11-15 Heart Rate 75 /min 2016-11-15 Temperature 98.6 degrees Fahrenheit 2016-11-15 Height 64 in 2016-11-15 BMI 35.29 kg/m2 2016-11-15 Blood pressure systolic 108 mm Hg 2016-11-15 Blood pressure diastolic 62 mm Hg 2016-11-15 MEDICATIONS Medication Instructions Dosage Frequency Start Date End Date Duration Status Linzess 145 MCG PO QD 1 capsule 24h Active Claritin 10 TAKE ONE TABLET BY MOUTH DAILY 90 Active Albuterol Sulfate (2.5 MG/3ML) 0.083% Inhalation every 4 hrs prn 3 ml Jun, 30 days Active Alendronate Sodium 5 MG Orally Once a day 1 tablet 24h 28 Dec, 2016 30 day(s) Active Symbicort 160-4.5 INHALE TWO PUFFS BY MOUTH EVERY 12 HOURS 30 Active Ventolin HFA 108 (90 Base) MCG/ACT Inhalation every 4 hrs 2 puffs as needed 4h Active Multivitamin Adult - Active Aspirin Adult Low Dose 81 MG Orally Once a day 1-2 tablet 24h Active Lisinopril-Hydrochlorothiazide 20-12.5 Orally Once a day 1 tablet 24h 90 days Active Flonase 50 USE ONE SPRAY IN EACH NOSTRIL TWO TIMES A DAY 30 Active Albuterol Sulfate 2.5 mg Inhalation every 4 hrs prn 3 ml 4 Active Metoprolol Tartrate 50 TAKE ONE TABLET BY MOUTH TWICE A DAY 30 Active Celexa 40 MG Orally Once a day 0.5 tablet 24h Active Meloxicam 7.5 TAKE ONE TABLET BY MOUTH TWICE A DAY 30 Active Nitrostat 0.4 Sublingual prn as directed 30 Active Trazodone HCl 100 MG Orally Once a day 1.5 tablet at bedtime 24h Active Nexium 40 TAKE ONE CAPSULE BY MOUTH DAILY 30 Active Nitrostat 0.4 MG Sublingual prn as directed Jan, Active RESULTS Name Result Date Reference Range US EXT LISBET LT LOWER 2016-11-[address] [address] RADIOLOGY REPORT NAME NUMBER SEX AGE ADMIT DISC. ORDER# F/C TYPE JUSTICE Ley [id number] F 68 201611/15/2016 [id number] MB O/P DATE OF : 1950 MR#: [id number] PH#: [id number] XRAY#: [id number] ORDERING PROVIDER: JAIMIE LESLIE CONSULT/REFERRING: PRIMARY CARE PROVIDER: CISCO FRANKLIN TEST: US EXT VENOUS LT LOWER COMPLETE: 11/15/2016 15:30 SMM Patient: JEFFERSON RENDON Time Out: 16:02 Exam(s): US VENOUS LEFT LOWER EXTREMITY ULTRASOUND, VENOUS, LEFT LOWER EXTREMITY INDICATION: Left leg pain. COMPARISON: None available. TECHNIQUE: Cox-scale, color Doppler, and spectral duplex imaging of the left lower leg venous system was performed. FINDINGS: The common femoral, superficial femoral, popliteal, posterior tibial, and peroneal veins are all widely patent, with good compressibility and good waveform augmentation where able. The greater saphenous vein is also patent where seen. IMPRESSION: 1. No deep venous thrombosis in the left lower leg. at 1602 * Urine C&S 2016-11-15 TYPE OF SPECIMEN CC FINDINGS D1 GROWTH NR FINDINGS D2 GROWTH NR PROCEDURES Procedure Date Ordered Related Diagnosis Body Site URINE-NO MICRO November 15, 2016 Office Visit, Est Pt., Level 4 November 15, 2016 IMMUNIZATIONS No Known Immunizations
--- OUTSIDE RECORDS SUMMARY | 2018-02-04 20:05 | XMS REPORT ---
Author Author Rogelio Prado Organization [facility] Address [address], [address] [place], [place] [address] Care Team Providers Care Engine Oiler Name Role Phone Rogelio Prado Unavailable PROBLEMS Type Condition ICD9-CM Code [id number] Code Onset Dates Condition Status SNOMED Code Problem COPD (chronic obstructive pulmonary disease) J44.9 Active 92868717 Problem COPD exacerbation J44.1 Active 155269570 Problem Intellectual disability F79 Active 14689087 Problem Hyperlipidemia E78.5 Active 81236814 Problem Hypertension I10 Active 38224065 Problem Postmenopausal Z78.0 Active 21043177 Problem Closed fracture of one rib of right side with routine healing, subsequent encounter S22.31XD Active 52818213 Problem Depression, unspecified depression type F32.9 Active 79611556 Problem Constipation K59.00 Active 02801597 Problem Angina pectoris I20.9 Active 926150979 Problem COPD (chronic obstructive pulmonary disease) with acute bronchitis J44.0 Active 992358583568422 Problem Chronic obstructive pulmonary disease, unspecified COPD type J44.9 Active 97750057 ALLERGIES Substance Reaction Event Type Date Status PCN Unknown Drug Allergy Mar, Active Zithromax Unknown Drug Allergy Mar, Active SOCIAL HISTORY Never Assessed PLAN OF CARE Activity Details Follow Up 3 Months Reason: VITAL SIGNS Weight 205.5 lbs 2017-03-26 Heart Rate 76 /min 2017-03-26 Height 64 in 2017-03-26 BMI 35.27 kg/m2 2017-03-26 Blood pressure systolic 144 mm Hg 2017-03-26 Blood pressure diastolic 80 mm Hg 2017-03-26 MEDICATIONS Medication Instructions Dosage Frequency Start Date End Date Duration Status Claritin 10 TAKE ONE TABLET BY MOUTH DAILY 90 Active Alendronate Sodium 5 MG Orally Once a day 1 tablet 24h May, 30 day(s) Active Nexium 40 TAKE ONE CAPSULE BY MOUTH DAILY 30 Active Linzess 145 MCG PO QD 1 capsule 24h Active Aspirin Adult Low Dose 81 MG Orally Once a day 1-2 tablet 24h Active Albuterol Sulfate (2.5 MG/3ML) 0.083% Inhalation every 4 hrs prn 3 ml Jun, 30 days Active Meloxicam 7.5 MG Orally twice a day TAKE ONE TABLET BY MOUTH TWICE A DAY 12h 30 days Active Nitrostat 0.4 MG Sublingual prn as directed Jan, Active Flonase 50 USE ONE SPRAY IN EACH NOSTRIL TWO TIMES A DAY 30 Active Triamcinolone Acetonide 0.1 APPLY TO AFFECTED AREA(S) TWO TIMES A DAY 30 Active Multivitamin Adult - Active Symbicort 160-4.5 Inhalation Twice a day INHALE TWO PUFFS BY MOUTH EVERY 12 HOURS 12h 30 Active Ventolin HFA 108 (90 Base) MCG/ACT Inhalation every 4 hrs 2 puffs as needed 4h Active Celexa 40 MG Orally Once a day 0.5 tablet 24h Active Metoprolol Tartrate 50 TAKE ONE TABLET BY MOUTH TWICE A DAY 30 Active Trazodone HCl 100 MG Orally Once a day 1.5 tablet at bedtime 24h Active Lisinopril-Hydrochlorothiazide 20-12.5 Orally bid 1 tablet 12h 90 days Active RESULTS Name Result Date Reference Range * CBC w/diff 2017-03-26 WBC 4.7 4.3 - 11.0 RBC 4.81 4.20 - 5.40 HEMOGLOBIN 13.3 12.0 - 16.0 HEMATOCRIT 39.4 38.0 - 47.0 MCV 82 82 - 100 MCH 27.6 26.0 - 33.0 MCHC 33.7 31.0 - 36.0 RDW 14.1 11.5 - 14.[address] 140 150 - 375 NEUTROPHILS 69.3 50.0 - 76.0 LYMPHOCYTES 19.8 20.0 - 40.0 MONOCYTES 6.3 2.0 - 12.0 EOSINOPHILS 3.9 1.0 - 3.0 BASOPHILS 0.7 0.0 - 1.0 NEUTROPHILS 3.3 1.4 - 6.5 LYMPHOCYTES 0.9 1.0 - 4.0 MONOCYTES 0.3 0.0 - 0.7 EOSINOPHILS 0.2 0.0 - 0.7 BASOPHILS 0.0 0.0 - 0.2 MANUAL DIFF NOT INDICATED * Chem-14 2017-03-26 ALK PHOS 59 32 - 91 ALT/SGPT 39 9 - 72 AST/SGOT 31 5 - 40 BUN/CREAT 28.71 T BILIRUBIN 0.60 0.20 - 1.30 TOTAL PROTEIN 7.00 5.49 - 7.83 AGE 66 GFR NonAA 59 GFR AA 71 * TSH 2017-03-26 PROCEDURES No Known procedures IMMUNIZATIONS No Known [...]
--- OUTSIDE RECORDS SUMMARY | 2018-02-04 20:05 | XMS REPORT ---
Author Author Rogelio Prado Organization [facility] Address [address], [address] [place], [place] [address] Care Team Providers Care Director Of Institutional Sales Name Role Phone Rogelio Prado Unavailable PROBLEMS Type Condition ICD9-CM Code [id number] Code Onset Dates Condition Status SNOMED Code Problem COPD (chronic obstructive pulmonary disease) J44.9 Active 28089690 Problem COPD exacerbation J44.1 Active 056988771 Problem Intellectual disability F79 Active 14347680 Problem Hyperlipidemia E78.5 Active 95242207 Problem Hypertension I10 Active 24422918 Problem Postmenopausal Z78.0 Active 39055641 Problem Closed fracture of one rib of right side with routine healing, subsequent encounter S22.31XD Active 96293946 Problem Depression, unspecified depression type F32.9 Active 06928041 Problem Constipation K59.00 Active 36910378 Problem Angina pectoris I20.9 Active 445470367 Problem COPD (chronic obstructive pulmonary disease) with acute bronchitis J44.0 Active 662933828476705 Problem Chronic obstructive pulmonary disease, unspecified COPD type J44.9 Active 32603755 ALLERGIES No Information SOCIAL HISTORY Never Assessed PLAN OF CARE VITAL SIGNS MEDICATIONS Unknown [...]
--- OUTSIDE RECORDS SUMMARY | 2018-02-04 20:05 | XMS REPORT ---
Author Author Rogelio Prado Organization [facility] Address [address], [address] [place], [place] [address] Care Team Providers Care Squilgeer Name Role Phone Rogelio Prado Unavailable PROBLEMS Type Condition ICD9-CM Code [id number] Code Onset Dates Condition Status SNOMED Code Problem Postmenopausal Z78.0 Active 23677351 Problem Intellectual disability F79 Active 66669755 Problem COPD (chronic obstructive pulmonary disease) J44.9 Active 87061149 Problem Hyperlipidemia E78.5 Active 71032818 Problem Hypertension I10 Active 30498805 Problem Depression, unspecified depression type F32.9 Active 70206548 Problem COPD (chronic obstructive pulmonary disease) with acute bronchitis J44.0 Active 954198788402765 Problem Angina pectoris I20.9 Active 906108610 Problem COPD exacerbation J44.1 Active 160778193 Problem Chronic obstructive pulmonary disease, unspecified COPD type J44.9 Active 05452409 Problem Constipation K59.00 Active 65577266 ALLERGIES Unknown Allergies SOCIAL HISTORY No smoking Hx information available PLAN OF CARE VITAL SIGNS MEDICATIONS Unknown Medications RESULTS No Results PROCEDURES No Known procedures IMMUNIZATIONS No Known Immunizations
--- OUTSIDE RECORDS SUMMARY | 2018-02-04 20:05 | XMS REPORT ---
Author Author Rogelio Prado Organization [facility] Address [address], [address] [place], [place] [id number] Care Team Providers Care Quantitative Research Analyst Name Role Phone Rogelio Prado Unavailable PROBLEMS Type Condition ICD9-CM Code [id number] Code Onset Dates Condition Status SNOMED Code Problem COPD (chronic obstructive pulmonary disease) J44.9 Active 17224663 Problem COPD exacerbation J44.1 Active 411139396 Problem Intellectual disability F79 Active 15455447 Problem Hyperlipidemia E78.5 Active 01584478 Problem Hypertension I10 Active 12649242 Problem Postmenopausal Z78.0 Active 29390219 Problem Closed fracture of one rib of right side with routine healing, subsequent encounter S22.31XD Active 46023098 Problem Depression, unspecified depression type F32.9 Active 67177725 Problem Constipation K59.00 Active 27889476 Problem Angina pectoris I20.9 Active 062849319 Problem COPD (chronic obstructive pulmonary disease) with acute bronchitis J44.0 Active 364531187946784 Problem Chronic obstructive pulmonary disease, unspecified COPD type J44.9 Active 90356552 ALLERGIES Substance Reaction Event Type Date Status PCN Unknown Drug Allergy Jan, Active Zithromax Unknown Drug Allergy Jan, Active SOCIAL HISTORY No smoking Hx information available PLAN OF CARE Activity Details Follow Up 4 Weeks Reason: VITAL SIGNS Heart Rate 63 /min 2017-02-19 Height 64 in 2017-02-19 Oximetry 96 % 2017-02-19 Blood pressure systolic 132 mm Hg 2017-02-19 Blood pressure diastolic 60 mm Hg 2017-02-19 MEDICATIONS Medication Instructions Dosage Frequency Start Date End Date Duration Status Ventolin HFA 108 (90 Base) MCG/ACT Inhalation every 4 hrs 2 puffs as needed 4h Active Albuterol Sulfate (2.5 MG/3ML) 0.083% Inhalation every 4 hrs prn 3 ml Jun, 30 days Active Flonase 50 USE ONE SPRAY IN EACH NOSTRIL TWO TIMES A DAY 30 Active Alendronate Sodium 5 MG Orally Once a day 1 tablet 24h May, 30 day(s) Active Meloxicam 7.5 TAKE ONE TABLET BY MOUTH TWICE A DAY 30 Active Aspirin Adult Low Dose 81 MG Orally Once a day 1-2 tablet 24h Active Trazodone HCl 100 MG Orally Once a day 1.5 tablet at bedtime 24h Active Lisinopril-Hydrochlorothiazide 20-12.5 Orally Once a day 1 tablet 24h 90 days Active Symbicort 160-4.5 Inhalation Twice a day INHALE TWO PUFFS BY MOUTH EVERY 12 HOURS 12h 30 Active Triamcinolone Acetonide 0.1 APPLY TO AFFECTED AREA(S) TWO TIMES A DAY 30 Active Nexium 40 TAKE ONE CAPSULE BY MOUTH DAILY 30 Active Claritin 10 TAKE ONE TABLET BY MOUTH DAILY 90 Active Metoprolol Tartrate 50 TAKE ONE TABLET BY MOUTH TWICE A DAY 30 Active Nitrostat 0.4 MG Sublingual prn as directed Jan, Active Multivitamin Adult - Active Linzess 145 MCG PO QD 1 capsule 24h Active Celexa 40 MG Orally Once a day 0.5 tablet 24h Active RESULTS No Results PROCEDURES Procedure Date Ordered Related Diagnosis Body Site Office Visit, Est Pt., Level 3 Feb 19, 2017 IMMUNIZATIONS No Known Immunizations
--- OUTSIDE RECORDS SUMMARY | 2018-02-04 20:06 | XMS REPORT ---
Author Author Rogelio Prado Organization [facility] Address [address], [address] [place], [place] [id number] Care Team Providers Care Emergency Medical Service Manager Name Role Phone Rogelio Prado Unavailable PROBLEMS Type Condition ICD9-CM Code [id number] Code Onset Dates Condition Status SNOMED Code Problem Postmenopausal Z78.0 Active 36022023 Problem Intellectual disability F79 Active 90589601 Problem COPD (chronic obstructive pulmonary disease) J44.9 Active 46877753 Problem Hyperlipidemia E78.5 Active 84190741 Problem Hypertension I10 Active 03163389 Problem Depression, unspecified depression type F32.9 Active 88682710 Problem COPD (chronic obstructive pulmonary disease) with acute bronchitis J44.0 Active 637189489055151 Problem Angina pectoris I20.9 Active 624654102 Problem COPD exacerbation J44.1 Active 901281555 Problem Chronic obstructive pulmonary disease, unspecified COPD type J44.9 Active 56876953 Problem Constipation K59.00 Active 79707753 ALLERGIES Substance Reaction Event Type Date Status PCN Unknown Drug Allergy Dec, Active Zithromax Unknown Drug Allergy Dec, Active SOCIAL HISTORY No smoking Hx information available PLAN OF CARE Activity Details Follow Up 4 Weeks Reason: VITAL SIGNS Weight 205.3 lbs 2017-01-08 Heart Rate 77 /min 2017-01-08 Height 64 in 2017-01-08 Oximetry 92 % 2017-01-08 BMI 35.24 kg/m2 2017-01-08 Blood pressure systolic 146 mm Hg 2017-01-08 Blood pressure diastolic 82 mm Hg 2017-01-08 MEDICATIONS Medication Instructions Dosage Frequency Start Date End Date Duration Status Trazodone HCl 100 MG Orally Once a day 1.5 tablet at bedtime 24h Active Celexa 40 MG Orally Once a day 0.5 tablet 24h Active Ventolin HFA 90 INHALE ONE TO TWO PUFFS BY MOUTH EVERY 4 HOURS NEEDED FOR SHORTNESS OF BREATH FOR COUGH 16 Active Lisinopril-Hydrochlorothiazide 20-12.5 Orally Once a day 1 tablet 24h 90 days Active Alendronate Sodium 5 MG Orally Once a day 1 tablet 24h May, 30 day(s) Active Nexium 40 TAKE ONE CAPSULE BY MOUTH DAILY 30 Active Ventolin HFA 108 (90 Base) MCG/ACT Inhalation every 4 hrs 2 puffs as needed 4h Active Metoprolol Tartrate 50 TAKE ONE TABLET BY MOUTH TWICE A DAY 30 Active Triamcinolone Acetonide 0.1 APPLY TO AFFECTED AREA(S) TWO TIMES A DAY 30 Active Linzess 145 MCG PO QD 1 capsule 24h Active Flonase 50 USE ONE SPRAY IN EACH NOSTRIL TWO TIMES A DAY 30 Active Albuterol Sulfate (2.5 MG/3ML) 0.083% Inhalation every 4 hrs prn 3 ml Jun, 30 days Active Nitrostat 0.4 MG Sublingual prn as directed Jan, Active Levofloxacin 500 MG Orally Once a day 1 tablet 24h Dec, 5 days Active Nitrostat 0.4 Sublingual prn as directed 30 Active Multivitamin Adult - Active Meloxicam 7.5 TAKE ONE TABLET BY MOUTH TWICE A DAY 30 Active Claritin 10 TAKE ONE TABLET BY MOUTH DAILY 90 Active Aspirin Adult Low Dose 81 MG Orally Once a day 1-2 tablet 24h Active Symbicort 160-4.5 Inhalation Twice a day INHALE TWO PUFFS BY MOUTH EVERY 12 HOURS 12h 30 Active RESULTS No Results PROCEDURES Procedure Date Ordered Related Diagnosis Body Site HEMALATHA Moderate Complexity January 08, 2017 IMMUNIZATIONS No Known Immunizations
--- OUTSIDE RECORDS SUMMARY | 2018-02-04 20:06 | XMS REPORT ---
Author Author Rogelio Prado Organization [facility] Address [address], [address] [place], [place] [address] Care Team Providers Care Medical Equipment Sales Name Role Phone Rogelio Prado Unavailable PROBLEMS Type Condition ICD9-CM Code [id number] Code Onset Dates Condition Status SNOMED Code Problem Constipation K59.00 Active 12103966 Problem Depression, unspecified depression type F32.9 Active 23419565 Problem COPD (chronic obstructive pulmonary disease) with acute bronchitis J44.0 Active 494617496849798 Problem Gastritis without bleeding, unspecified chronicity, unspecified gastritis type K29.70 Active 6869742 Problem Chronic sinusitis, unspecified J32.9 Active 082135051 Problem Obstructive sleep apnea syndrome G47.33 Active 19023465 Problem Closed fracture of one rib of right side with routine healing, subsequent encounter S22.31XD Active 52050372 Problem Acute sinusitis, unspecified J01.90 Active 74183496 Problem Nocturnal hypoxia G47.34 Active 982870688 Problem Hyperlipidemia E78.5 Active 38277425 Problem COPD (chronic obstructive pulmonary disease) J44.9 Active 56038702 Problem Intellectual disability F79 Active 06489896 Problem Hypertension I10 Active 22915677 Problem COPD exacerbation J44.1 Active 587445775 Problem Postmenopausal Z78.0 Active 21148363 Problem Angina pectoris I20.9 Active 921543864 ALLERGIES No Information SOCIAL HISTORY Never Assessed [...]
--- OUTSIDE RECORDS SUMMARY | 2018-02-04 20:06 | XMS REPORT ---
Author Author Rogelio Prado Organization [facility] Address [address], [address] [place], [place] [address] Care Team Providers Care Oil Tank Car Cleaner Name Role Phone Rogelio Prado Unavailable PROBLEMS Type Condition ICD9-CM Code CMP42-XS Code Onset Dates Condition Status SNOMED Code Problem COPD (chronic obstructive pulmonary disease) J44.9 Active 51449424 Problem COPD exacerbation J44.1 Active 872368653 Problem Intellectual disability F79 Active 37843792 Problem Hyperlipidemia E78.5 Active 53829547 Problem Hypertension I10 Active 35117570 Problem Postmenopausal Z78.0 Active 55092008 Problem Closed fracture of one rib of right side with routine healing, subsequent encounter S22.31XD Active 61577314 Problem Depression, unspecified depression type F32.9 Active 91588281 Problem Constipation K59.00 Active 10330367 Problem Angina pectoris I20.9 Active 921655272 Problem COPD (chronic obstructive pulmonary disease) with acute bronchitis J44.0 Active 956634573351465 Problem Chronic obstructive pulmonary disease, unspecified COPD type J44.9 Active 92714661 ALLERGIES Unknown Allergies SOCIAL HISTORY No smoking Hx information available PLAN OF CARE VITAL SIGNS MEDICATIONS Medication Instructions Dosage Frequency Start Date End Date Duration Status Bactrim DS 800-160 MG Orally Twice a day 1 tablet 12h Sep, 5 days Active RESULTS No Results PROCEDURES No Known procedures IMMUNIZATIONS No Known Immunizations
--- OUTSIDE RECORDS SUMMARY | 2018-02-04 20:06 | XMS REPORT ---
Author Author Rogelio Prado Organization [facility] Address [address], [address] [place], [place] [address] Care Team Providers Care Campus Recruiter Name Role Phone Rogelio Prado Unavailable PROBLEMS Type Condition ICD9-CM Code EPU26-IF Code Onset Dates Condition Status SNOMED Code Problem Postmenopausal Z78.0 Active 33947171 Problem Intellectual disability F79 Active 33258711 Problem COPD (chronic obstructive pulmonary disease) J44.9 Active 26581550 Problem Hyperlipidemia E78.5 Active 91859622 Problem Hypertension I10 Active 55815697 Problem Depression, unspecified depression type F32.9 Active 16349522 Problem COPD (chronic obstructive pulmonary disease) with acute bronchitis J44.0 Active 269723602193053 Problem Angina pectoris I20.9 Active 196860197 Problem COPD exacerbation J44.1 Active 853981570 Problem Chronic obstructive pulmonary disease, unspecified COPD type J44.9 Active 75278230 Problem Constipation K59.00 Active 64248313 ALLERGIES Unknown Allergies SOCIAL HISTORY No smoking Hx information available PLAN OF CARE VITAL SIGNS MEDICATIONS Unknown Medications RESULTS No Results PROCEDURES No Known procedures IMMUNIZATIONS No Known Immunizations
--- OUTSIDE RECORDS SUMMARY | 2018-02-04 20:06 | XMS REPORT ---
Author Author Rogelio Prado Organization [facility] Address [address], [address] [place], [place] [address] Care Team Providers Care Workforce Advisor Name Role Phone Rogelio Prado Unavailable PROBLEMS Type Condition ICD9-CM Code [id number] Code Onset Dates Condition Status SNOMED Code Problem Postmenopausal Z78.0 Active 03502505 Problem Intellectual disability F79 Active 44001568 Problem COPD (chronic obstructive pulmonary disease) J44.9 Active 80151454 Problem Hyperlipidemia E78.5 Active 99681573 Problem Hypertension I10 Active 80435039 Problem Depression, unspecified depression type F32.9 Active 20360216 Problem COPD (chronic obstructive pulmonary disease) with acute bronchitis J44.0 Active 644352981432382 Problem Angina pectoris I20.9 Active 300442874 Problem COPD exacerbation J44.1 Active 550156947 Problem Chronic obstructive pulmonary disease, unspecified COPD type J44.9 Active 66004452 Problem Constipation K59.00 Active 73988741 ALLERGIES Unknown Allergies SOCIAL HISTORY No smoking Hx information available PLAN OF CARE VITAL SIGNS MEDICATIONS Unknown Medications RESULTS No Results PROCEDURES No Known procedures IMMUNIZATIONS No Known Immunizations
--- OUTSIDE RECORDS SUMMARY | 2018-02-04 20:06 | XMS REPORT ---
Author Author Rogelio Prado Organization [facility] Address [address], [address] [place], [place] [address] Care Team Providers Care Appliquer Name Role Phone Rogelio Prado Unavailable PROBLEMS Type Condition ICD9-CM Code EUH58-OD Code Onset Dates Condition Status SNOMED Code Problem COPD (chronic obstructive pulmonary disease) J44.9 Active 26073432 Problem COPD exacerbation J44.1 Active 502948135 Problem Intellectual disability F79 Active 57094172 Problem Hyperlipidemia E78.5 Active 32850219 Problem Hypertension I10 Active 93152441 Problem Postmenopausal Z78.0 Active 38891957 Problem Closed fracture of one rib of right side with routine healing, subsequent encounter S22.31XD Active 26772097 Problem Depression, unspecified depression type F32.9 Active 99468610 Problem Constipation K59.00 Active 32515870 Problem Angina pectoris I20.9 Active 473232073 Problem COPD (chronic obstructive pulmonary disease) with acute bronchitis J44.0 Active 234661216215053 Problem Chronic obstructive pulmonary disease, unspecified COPD type J44.9 Active 16695572 ALLERGIES No Information SOCIAL HISTORY Never Assessed [...]
--- OUTSIDE RECORDS SUMMARY | 2018-02-04 20:06 | XMS REPORT ---
Author Author Rogelio Prado Organization [facility] Address [address], [address] [place], [place] [address] Care Team Providers Care Industrial Eng Name Role Phone Rogelio Prdao Unavailable PROBLEMS Type Condition ICD9-CM Code [id number] Code Onset Dates Condition Status SNOMED Code Problem Postmenopausal Z78.0 Active 25471497 Problem Intellectual disability F79 Active 11088375 Problem COPD (chronic obstructive pulmonary disease) J44.9 Active 11772056 Problem Hyperlipidemia E78.5 Active 81692378 Problem Hypertension I10 Active 99212998 Problem Depression, unspecified depression type F32.9 Active 02113211 Problem COPD (chronic obstructive pulmonary disease) with acute bronchitis J44.0 Active 796676553119922 Problem Angina pectoris I20.9 Active 499870991 Problem COPD exacerbation J44.1 Active 579095154 Problem Chronic obstructive pulmonary disease, unspecified COPD type J44.9 Active 76809199 Problem Constipation K59.00 Active 98412235 ALLERGIES Unknown Allergies SOCIAL HISTORY No smoking Hx information available PLAN OF CARE VITAL SIGNS MEDICATIONS Unknown Medications RESULTS No Results PROCEDURES No Known procedures IMMUNIZATIONS No Known Immunizations
--- OUTSIDE RECORDS SUMMARY | 2018-02-04 20:07 | XMS REPORT ---
Author Author Rogelio Prado Organization [facility] Address [address], [address] [place], [place] [id number] Care Team Providers Care Scout Leaser Name Role Phone Dresher, Rogelio Unavailable PROBLEMS Type Condition ICD9-CM Code [id number] Code Onset Dates Condition Status SNOMED Code Problem Angina pectoris I20.9 Active [id number] Problem COPD (chronic obstructive pulmonary disease) with acute bronchitis J44.0 Active [id number] Problem Constipation K59.00 Active 24482905 Problem Gastritis without bleeding, unspecified chronicity, unspecified gastritis type K29.70 Active 0155640 Problem Chronic sinusitis, unspecified J32.9 Active 254026180 Problem Obstructive sleep apnea syndrome G47.33 Active 74815110 Problem Closed fracture of one rib of right side with routine healing, subsequent encounter S22.31XD Active 42935582 Problem Acute sinusitis, unspecified J01.90 Active 14370709 Problem Nocturnal hypoxia G47.34 Active 432346339 Problem Episode of recurrent major depressive disorder, unspecified depression episode severity F33.9 Active 074216456 Problem Postmenopausal Z78.0 Active 35168619 Problem COPD (chronic obstructive pulmonary disease) J44.9 Active 26943989 Problem Hyperlipidemia E78.5 Active 23682941 Problem Intellectual disability F79 Active 46852042 Problem Hypertension I10 Active 46052663 Problem COPD exacerbation J44.1 Active [id number] ALLERGIES No Information ENCOUNTERS Encounter Location Date Diagnosis [facility] [address] [place], [place] [id number] Aug, [facility] [address] [place] [address] Aug, [facility] [address] [place] [address] Aug, [facility] [address] [place] [address] Jul, [facility] [address] [place] [address] Jul, [facility] [address] [place] [address] Jul, [facility] [address] [place] [address] Jul, Right sided abdominal pain R10.9 ; Hypertension I10 ; COPD (chronic obstructive pulmonary disease) J44.9 and Hyperlipidemia E78.5 [facility] [address] [place] [address] Jul, [facility] [address] [place] [address] Jul, [facility] [address] [place] [address] Jul, Acute gastritis without hemorrhage, unspecified gastritis type K29.00 ; Diarrhea, unspecified type R19.7 ; Hypertension I10 ; COPD (chronic obstructive pulmonary disease) J44.9 and Hyperlipidemia E78.5 [facility] [address] [place] [address] Jul, [facility] [address] [place] [address] Jun, Acute lower respiratory infection J22 ; Other fatigue R53.83 and History of influenza Z87.09 [facility] [address] [place] [address] Jun, [facility] [address] [place] [address] Jun, [facility] [address] [place] [address] Jun, Acute lower respiratory infection J22 ; Other fatigue R53.83 and History of influenza Z87.09 [facility] [address] [place] [address] Jun, [facility] [address] [place] [address] Jun, [facility] [address] [place] [address] Jun, [facility] [address] [place] [address] Jun, [facility] [address] [place] [address] Jun, [facility] [address] [place] [address] Jun, Acute pain of left shoulder M25.512 [facility] [address] [place] [address] Jun, Acute pain of left shoulder M25.512 ; Gastritis without bleeding, unspecified chronicity, unspecified gastritis type K29.70 ; Hypertension I10 ; COPD (chronic obstructive pulmonary disease) J44.9 and Hyperlipidemia E78.5 [facility] [address] [place] [address] Jun, [facility] [address] [place] [address] Jun, [facility] [address] [place] [address] May, [facility] [address] [place] [address] May, Acute pain of left shoulder M25.512 ; Intellectual disability F79 and Closed fracture of one rib of right side with routine healing, subsequent encounter S22.31XD [facility] [address] [place] [address] May, [facility] [address] [place] [address] May, [facility] [address] [place] [id number] May, [facility] [address] [place] [address] May, Acute bronchitis, unspecified organism J20.9 ; Hypertension I10 ; COPD ( chronic obstructive pulmonary disease) J44.9 ; Hyperlipidemia E78.5 ; Nocturnal hypoxia G47.34 and Obstructive sleep apnea syndrome G47.33 [facility] [address] [place] [address] Apr, Pain with urination R30.9 ; Hypertension I10 ; COPD (chronic obstructive pulmonary disease) J44.9 ; Hyperlipidemia E78.5 and Acute bronchitis, unspecified organism J20.9 [facility] [address] [place] [address] Apr, Hypertension I10 [facility] [address] [place] [address] Apr, Acute sinusitis, unspecified J01.90 [facility] [address] [place] [address] Apr, [facility] [address] [place] [address] Mar, [facility] [address] [place] [address] Mar, Other specified bacterial agents as the cause of diseases classified elsewhere B96.89 and Acute sinusitis, unspecified J01.90 [facility] [address] [place] [address] Mar, Closed fracture of one rib of right side with routine healing, subsequent encounter S22.31XD [facility] [address] [place] [address] Mar, [facility] [address] [place] [address] Mar, COPD (chronic obstructive pulmonary disease) J44.9 ; Closed fracture of one rib of right side with routine healing, subsequent encounter S22.31XD ; Hypertension I10 ; Constipation K59.00 ; Angina pectoris I20.9 ; Depression, unspecified depression type F32.9 and Left ear pain H92.02 [facility] [address] [place] [address] Mar, Elevated glucose R73.09 [facility] [address] [place] [address] Mar, [facility] [address] [place] [address] Mar, Left-sided chest wall pain R07.89 and Hypertension I10 [facility] [address] [place], [place] [address] Feb, [facility] [address] [place] [address] Feb, Hypertension I10 [facility] [address] [place] [address] Feb, Closed fracture of one rib of right side, initial encounter S22.31XA ; Intellectual disability F79 ; COPD (chronic obstructive pulmonary disease) J44.9 ; Hyperlipidemia E78.5 and Hypertension I10 [facility] [address] [place] [address] Feb, [facility] [address] [place] [address] Feb, Dysuria R30.0 [facility] [address] [place] [address] Jan, Closed fracture of one rib of right side, initial encounter S22.31XA [facility] [address] [place] [address] Jan, [facility] [address] [place] [address] Jan, [facility] [address] [place] [address] Jan, Contusion of left side of back, initial encounter S20.222A [facility] [address] [place] [address] Jan, [facility] [address] [place] [address] Dec, [facility] [address] [place] [address] Dec, [facility] [address] [place] [address] Dec, COPD (chronic obstructive pulmonary disease) J44.9 and Hypertension I10 [facility] [address] [place] [address] Dec, [facility] [address] [place] [address] Dec, [facility] [address] [place] [address] Dec, Skin irritation R23.8 [facility] [address] [place] [address] Dec, [facility] [address] [place] [address] Dec, [facility] [address] [place] [address] Dec, [facility] [address] [place] [address] Dec, [facility] [address] [place] [address] October, Dysuria R30.0 and Pain of left calf M79.662 [facility] [address] [place] [address] October, Pain of right great toe M79.674 and Overgrown toenails L60.2 [facility] [address] [place] [address] Sep, [facility] [address] [place] [address] Sep, [facility] [address] [place] [address] Sep, Pain with urination R30.9 ; Abdominal pain, unspecified location R10.9 and Loose stools R19.5 [facility] [address] [place], [place] [address] Sep, Hypertension I10 [facility] [address] [place] [address] Sep, [facility] [address] [place] [address] Sep, Acute cystitis with hematuria N30.01 [facility] [address] [place] [address] Sep, [facility] [address] [place] [address] Sep, Urinary frequency R35.0 [facility] [address] [place], [place] [address] Aug, [facility] [address] [place], [place] [address] Aug, Screening for breast cancer Z12.39 [facility] [address] [place] [address] Aug, [facility] [address] [place] [address] Aug, [facility] [address] [place] [address] Aug, [facility] [address] [place] [address] Aug, [facility] [address] [place] [address] Aug, [facility] [address] [place] [address] Aug, [facility] [address] [place] [address] Aug, [facility] [address] [place] [address] Aug, [facility] [address] [place] [address] Jul, Dysuria R30.0 [facility] [address] [place] [address] Jul, Chest wall pain R07.89 and Myofascial pain M79.1 [facility] [address] [place] [address] Jul, [facility] [address] [place] [address] Jul, Depression, unspecified depression type F32.9 ; Chronic obstructive pulmonary disease, unspecified COPD type J44.9 ; Hypertension I10 ; Angina pectoris I20.9 and Costochondritis M94.0 [facility] [address] [place] [address] Jun, Acute non-recurrent maxillary sinusitis J01.00 [facility] [address] [place] [address] Jun, [facility] [address] [place] [address] Jun, [facility] [address] [place] [address] Jun, [facility] [address] [place] [address] Jun, [facility] [address] [place] [address] Jun, [facility] [address] [place] [address] Jun, Left-sided chest wall pain R07.89 and Cough due to bronchospasm J98.01 [facility] [address] [place] [address] Jun, [facility] [address] [place] [address] May, [facility] [address] [place] [address] May, Left-sided chest wall pain R07.89 [facility] [address] [place], [place] [address] May, Left-sided chest wall pain R07.89 and Cough due to bronchospasm J98.01 [facility] [address] [place] [address] May, [facility] [address] [place] [address] May, Encounter for Medicare annual wellness exam Z00.00 ; Advanced directives, counseling/discussion Z71.89 ; Screening for osteoporosis Z13.820 ; Bilateral hearing loss, unspecified hearing loss type H91.93 ; Intellectual disability F79 ; COPD (chronic obstructive pulmonary disease) J44.9 ; Postmenopausal Z78.0 ; Hypertension I10 ; Hyperlipidemia E78.5 ; Constipation K59.00 and Angina pectoris I20.9 [facility] [address] [place] [address] May, [facility] [address] [place] [address] May, Left-sided chest wall pain R07.89 and Chest wall contusion, left, initial encounter S20.212A [facility] [address] [place], [place] [address] May, Dog bite, subsequent encounter W54.0XXD [address] [place], [place] [address] May, Open bite of right hand, initial encounter S61.451A and Bitten by dog, initial encounter W54.0XXA [address], [address] [place], [place] [address] May, [address] [place] [address] May, [facility] [address] [place] [address] Apr, Chest congestion R09.89 ; COPD exacerbation J44.1 and Dermatitis L30.9 [facility] [address] [place] [address] Apr, Secondary infection of skin L08.89 and Keratotic lesion L57.0 [facility] [address] [place] [address] Mar, Hypertension I10 ; Bronchitis J40 and Cough R05 [facility] [address] [place] [address] Feb, [facility] [address] [place], [place] [address] Feb, Skin tag L91.8 [facility] [address] [place] [address] Dec, Dysuria R30.0 and Vaginitis N76.0 [facility] [address] [place] [address] Dec, Constipation K59.00 ; Hypertension I10 ; Bronchitis J40 ; Post-tussive emesis R11.10 and Cough R05 [facility] [address] [place] [address] Dec, [facility] [address] [place] [address] Nov, Constipation K59.00 and Bronchitis J40 [facility] [address] [place] [address] Nov, [facility] [address] [place] [address] October, Dysuria R30.0 [facility] [address] [place] [address] October, Urinary frequency R35.0 and UTI (urinary tract infection) N39.0 [facility] [address] [place] [address] Sep, Intellectual disability F79 ; COPD (chronic obstructive pulmonary disease ) J44.9 ; Postmenopausal Z78.0 ; Hypertension I10 and Hyperlipidemia E78.5 [facility] [address] [place] [address] Aug, Pain with urination R30.9 ; Wrist pain, left M25.532 and Pain in scapula M89.8X1 [address] [place] [address] Jul, Pain with urination R30.9 and Vaginitis N76.0 [facility] [address] [place] [address] Jul, Screening for breast cancer Z12.[address] [place], [place] [address] 10 Jul, 2015 Acute upper respiratory infection, unspecified J06.9 and Other viral agents as the cause of diseases classified elsewhere B97.89 [facility] [address] [place] [address] Jun, Cellulitis L03.[address] [place], [place] [address] Jun, Gastritis 535.50 ; URI (upper respiratory infection) J06.9 and Ingrown toenail L60.[address] [place] [address] Apr, Gastritis 535.50 and Oral lesion K13.[address] [place] [address] Mar, Dysuria R30.0 and Pain of right scapula M89.8X1 [address] [place] [address] Mar, [address] [place] [address] Mar, [address] [place] [address] Feb, Right knee pain 719.[address] [place] [address] Feb, [facility] [address] [place] [address] Feb, Right knee pain 719.[address] [place], [place] [address] Jan, Allergic rhinitis 477.9 and Cough 786.[address] [place] [address] Jan, [facility] [address] [place] [address] Jan, Insect bites 919.[address] [place], [place] [address] Jan, Fatigue 780.79 ; Gastritis 535.50 and Wound abscess 879.[address] [place], [place] [address] Dec, [facility] [address] [place], [place] [address] Nov, Fatigue 780.79 ; Weakness generalized 780.79 and Gastritis 535.50 [facility] [address] [place] [address] Nov, [facility] [address] [place], [place] [address] October, [facility] [address] [place] [address] October, [facility] [address] [place] [address] October, [facility] [address] [place] [address] October, [facility] [address] [place] [address] Sep, [facility] [address] [place], [place] [address] Sep, [facility] [address] [place], [place] [address] Sep, [facility] [address] [place] [address] Aug, [facility] [address] [place], [place] [address] Aug, [facility] [address] [place], [place] [address] Jul, [facility] [address] [place] [address] Jul, [facility] [address] [place], [place] [address] May, [facility] [address] [place] [address] May, [facility] [address] [place] [address] Apr, [facility] [address] [place] [address] Mar, [facility] [address] [place] [address] Mar, [facility] [address] [place] [address] Feb, [facility] [address] [place] [address] Jan, [facility] [address] [place] [address] Jan, [facility] [address] [place] [address] Nov, [facility] [address] [place], [place] [address] October, [facility] [address] [place] [address] October, [facility] [address] [place] [address] Sep, [facility] [address] [place] [address] Aug, [facility] [address] [place] [address] Jul, [facility] [address] [place] [address] Jun, [facility] [address] [place] [address] May, [facility] [address] [place] [address] Mar, [facility] [address] [place] [address] Mar, [facility] [address] [place] [address] Jan, [facility] [address] [place] [address] Dec, [facility] [address] [place] [address] Nov, [facility] [address] [place] [address] October, [facility] [address] [place] [address] Aug, [facility] [address] [place] [address] Jul, [facility] [address] [place] [address] Jun, [facility] [address] [place] [address] Jun, [facility] [address] [place] [address] Jun, [facility] [address] [place] [address] May, [facility] [address] [place] [address] Apr, [facility] [address] [place] [address] Mar, [facility] [address] [place] [address] Mar, [facility] [address] [place] [address] Mar, IMMUNIZATIONS No Known Immunizations SOCIAL HISTORY Never Assessed REASON FOR VISIT can she eat meat now? PLAN OF CARE VITAL SIGNS MEDICATIONS Unknown Medications RESULTS No Results PROCEDURES No Known procedures INSTRUCTIONS MEDICATIONS ADMINISTERED No Known Medications MEDICAL (GENERAL) HISTORY Type Description Date Medical [...]
--- OUTSIDE RECORDS SUMMARY | 2018-02-04 20:08 | XMS REPORT ---
Author Author Sarina Turk [facility] Address [address], [address] [place], [place] [id number] Care Team Providers Care Homebound Teacher Name Role Phone Sarina Turk Unavailable PROBLEMS Type Condition ICD9-CM Code RLT02-MR Code Onset Dates Condition Status SNOMED Code Problem Angina pectoris I20.9 Active 928968367 Problem COPD (chronic obstructive pulmonary disease) with acute bronchitis J44.0 Active 512980453542602 Problem Constipation K59.00 Active 79850333 Problem Gastritis without bleeding, unspecified chronicity, unspecified gastritis type K29.70 Active 3619355 Problem Chronic sinusitis, unspecified J32.9 Active 649577465 Problem Obstructive sleep apnea syndrome G47.33 Active 89248576 Problem Closed fracture of one rib of right side with routine healing, subsequent encounter S22.31XD Active 94715867 Problem Acute sinusitis, unspecified J01.90 Active 82899893 Problem Nocturnal hypoxia G47.34 Active 148964620 Problem Episode of recurrent major depressive disorder, unspecified depression episode severity F33.9 Active 304466361 Problem Postmenopausal Z78.0 Active 63573498 Problem COPD (chronic obstructive pulmonary disease) J44.9 Active 14314912 Problem Hyperlipidemia E78.5 Active 54316715 Problem Intellectual disability F79 Active 11017820 Problem Hypertension I10 Active 45154133 Problem COPD exacerbation J44.1 Active 728966091 ALLERGIES Substance Reaction Event Type Date Status PCN Unknown Drug Allergy Jul, Active Zithromax Unknown Drug Allergy Jul, Active ENCOUNTERS Encounter Location Date Diagnosis [facility] [address], [address] [place], [place] [id number] Aug, [facility] [address], [address] [place], [place] [id number] Aug, [facility] [address] [place], [place] [id number] Aug, [facility] [address] [place], [place] [id number] Jul, [facility] [address] [place], [place] [id number] Jul, [facility] [address], [address] [place], [place] [id number] Jul, Right sided abdominal pain R10.9 ; Hypertension I10 ; COPD (chronic obstructive pulmonary disease) J44.9 and Hyperlipidemia E78.5 [facility] [address], [address] [place], [place] [id number] Jul, [facility] [address] [place] [id number] Jul, [facility] [address], [address] [place], [place] [id number] Jul, Acute gastritis without hemorrhage, unspecified gastritis type K29.00 ; Diarrhea, unspecified type R19.7 ; Hypertension I10 ; COPD (chronic obstructive pulmonary disease) J44.9 and Hyperlipidemia E78.5 [facility] [address], [address] [place] [id number] Jul, [facility] [address], [address] [place], [place] [id number] Jun, Acute lower respiratory infection J22 ; Other fatigue R53.83 and History of influenza Z87.09 [facility] [address], [address] [place], [place] [id number] Jun, [facility] [address], [address] [place] [id number] Jun, [facility] [address], [address] [place], [place] [id number] Jun, Acute lower respiratory infection J22 ; Other fatigue R53.83 and History of influenza Z87.09 [facility] [address] [place], [place] [id number] Jun, [facility] [address] [place] [id number] Jun, [facility] [address] [place] [id number] Jun, [facility] [address] [place] [id number] Jun, [facility] [address] [place] [id number] Jun, [facility] [address], [address] [place] [id number] Jun, Acute pain of left shoulder M25.512 [facility] [address], [address] [place] [id number] Jun, Acute pain of left shoulder M25.512 ; Gastritis without bleeding, unspecified chronicity, unspecified gastritis type K29.70 ; Hypertension I10 ; COPD (chronic obstructive pulmonary disease) J44.9 and Hyperlipidemia E78.5 [facility] [address] [place], [place] [id number] Jun, [facility] [address] [place], [place] [id number] Jun, [facility] [address] [place], [place] [id number] May, [facility] [address] [place] [id number] May, Acute pain of left shoulder M25.512 ; Intellectual disability F79 and Closed fracture of one rib of right side with routine healing, subsequent encounter S22.31XD [facility] [address] [place] [id number] May, [facility] [address] [place] [id number] May, [facility] [address] [place] [id number] May, [facility] [address] [place] [id number] May, Acute bronchitis, unspecified organism J20.9 ; Hypertension I10 ; COPD ( chronic obstructive pulmonary disease) J44.9 ; Hyperlipidemia E78.5 ; Nocturnal hypoxia G47.34 and Obstructive sleep apnea syndrome G47.33 [facility] [address] [place], [place] [id number] Apr, Pain with urination R30.9 ; Hypertension I10 ; COPD (chronic obstructive pulmonary disease) J44.9 ; Hyperlipidemia E78.5 and Acute bronchitis, unspecified organism J20.9 [facility] [address] [place], [place] [id number] Apr, Hypertension I10 [facility] [address] [place] [id number] Apr, Acute sinusitis, unspecified J01.90 [facility] [address] [place] [id number] Apr, [facility] [address] [place], [place] [id number] Mar, [facility] [address] [place], [place] [id number] Mar, Other specified bacterial agents as the cause of diseases classified elsewhere B96.89 and Acute sinusitis, unspecified J01.90 [facility] [address] [place], [place] [id number] Mar, Closed fracture of one rib of right side with routine healing, subsequent encounter S22.31XD [facility] [address] [place] [id number] Mar, [facility] [address], [facility] [address] [place] [id number] Mar, COPD (chronic obstructive pulmonary disease) J44.9 ; Closed fracture of one rib of right side with routine healing, subsequent encounter S22.31XD ; Hypertension I10 ; Constipation K59.00 ; Angina pectoris I20.9 ; Depression, unspecified depression type F32.9 and Left ear pain H92.02 [facility] [address] [place], [place] [id number] Mar, Elevated glucose R73.09 [facility] [address] [place], [place] [id number] Mar, [facility] [address] [place] [id number] Mar, Left-sided chest wall pain R07.89 and Hypertension I10 [facility] [address] [place], [place] [id number] Feb, [facility] [address] [place] [address] Feb, Hypertension I10 [facility] [address] [place], [place] [id number] Feb, Closed fracture of one rib of right side, initial encounter S22.31XA ; Intellectual disability F79 ; COPD (chronic obstructive pulmonary disease) J44.9 ; Hyperlipidemia E78.5 and Hypertension I10 [facility] [address] [place], [place] [id number] Feb, [facility] [address] [place] [id number] Feb, Dysuria R30.0 [facility] [address] [place], [place] [id number] Jan, Closed fracture of one rib of right side, initial encounter S22.31XA [facility] [address] [place] [address] Jan, [facility] [address] [place] [id number] Jan, [facility] [address] [place], [place] [id number] Jan, Contusion of left side of back, initial encounter S20.222A [facility] [address] [place] [id number] Jan, [facility] [address] [place] [id number] Dec, [facility] [address] [place] [id number] Dec, [facility] [address] [place] [id number] Dec, COPD (chronic obstructive pulmonary disease) J44.9 and Hypertension I10 [facility] [address] [place] [address] Dec, [facility] [address] [place] [address] Dec, [facility] [address] [place] [id number] Dec, Skin irritation R23.8 [facility] [address] [place] [id number] Dec, [facility] [address] [place] [id number] Dec, [facility] [address] [place] [address] Dec, [facility] [address] [place] [address] Dec, [facility] [address] [place] [id number] October, Dysuria R30.0 and Pain of left calf M79.662 [facility] [address] [place] [id number] October, Pain of right great toe M79.674 and Overgrown toenails L60.2 [facility] [address] [place] [id number] Sep, [facility] [address] [place] [address] Sep, [facility] [address] [place] [id number] Sep, Pain with urination R30.9 ; Abdominal pain, unspecified location R10.9 and Loose stools R19.5 [facility] [address] [place] [address] Sep, Hypertension I10 [facility] [address] [place] [id number] Sep, [facility] [address] [place] [id number] Sep, Acute cystitis with hematuria N30.01 [facility] [address] [place] [id number] Sep, [facility] [address] [place], [place] [id number] Sep, Urinary frequency R35.0 [facility] [address] [place] [id number] Aug, [facility] [address] [place] [id number] Aug, Screening for breast cancer Z12.39 [facility] [address] [place], [place] [id number] Aug, [facility] [address] [place], [place] [id number] Aug, [facility] [address] [place] [id number] Aug, [facility] [address] [place] [address] Aug, [facility] [address] [place] [id number] Aug, [facility] [address] [place] [id number] Aug, [facility] [address] [place] [id number] Aug, [facility] [address] [place] [id number] Aug, [facility] [address] [place] [id number] Jul, Dysuria R30.0 [facility] [address] [place] [id number] Jul, Chest wall pain R07.89 and Myofascial pain M79.1 [facility] [address] [place], [place] [id number] Jul, [facility] [address] [place] [id number] Jul, Depression, unspecified depression type F32.9 ; Chronic obstructive pulmonary disease, unspecified COPD type J44.9 ; Hypertension I10 ; Angina pectoris I20.9 and Costochondritis M94.0 [facility] [address] [place], [place] [id number] Jun, Acute non-recurrent maxillary sinusitis J01.00 [facility] [address] [place], [place] [id number] Jun, [facility] [address] [place] [id number] Jun, [facility] [address] [place] [id number] Jun, [facility] [address] [place] [id number] Jun, [facility] [address] [place] [id number] Jun, [facility] [address] [place], [place] [id number] Jun, Left-sided chest wall pain R07.89 and Cough due to bronchospasm J98.01 [facility] [address] [place], [place] [id number] Jun, [facility] [address] [place] [id number] May, [facility] [address] [place] [id number] May, Left-sided chest wall pain R07.89 [facility] [address] [place], [place] [id number] May, Left-sided chest wall pain R07.89 and Cough due to bronchospasm J98.01 [facility] [address] [place], [place] [id number] May, [facility] [address] [place], [place] [address] May, Encounter for Medicare annual wellness exam Z00.00 ; Advanced directives, counseling/discussion Z71.89 ; Screening for osteoporosis Z13.820 ; Bilateral hearing loss, unspecified hearing loss type H91.93 ; Intellectual disability F79 ; COPD (chronic obstructive pulmonary disease) J44.9 ; Postmenopausal Z78.0 ; Hypertension I10 ; Hyperlipidemia E78.5 ; Constipation K59.00 and Angina pectoris I20.9 [facility] [address] [place], [place] [id number] May, [facility] [address], [address] [place], [place] [id number] May, Left-sided chest wall pain R07.89 and Chest wall contusion, left, initial encounter S20.212A [facility] [address] [place], [place] [id number] May, Dog bite, subsequent encounter W54.0XXD [facility] [address] [place], [place] [id number] May, Open bite of right hand, initial encounter S61.451A and Bitten by dog, initial encounter W54.0XXA [facility] [address] [place], [place] [id number] May, [facility] [address] [place] [id number] May, [facility] [address] [place] [id number] Apr, Chest congestion R09.89 ; COPD exacerbation J44.1 and Dermatitis L30.9 [facility] [address] [place], [place] [id number] Apr, Secondary infection of skin L08.89 and Keratotic lesion L57.0 [facility] [address] [place] [id number] Mar, Hypertension I10 ; Bronchitis J40 and Cough R05 [facility] [address] [place], [place] [id number] Feb, [facility] [address], [address] [place] [id number] Feb, Skin tag L91.8 [facility] [address] [place], [place] [id number] Dec, Dysuria R30.0 and Vaginitis N76.0 [facility] [address] [place], [place] [id number] Dec, Constipation K59.00 ; Hypertension I10 ; Bronchitis J40 ; Post-tussive emesis R11.10 and Cough R05 [facility] [address], [address] [place], [place] [id number] Dec, [facility] [address] [place] [id number] Nov, Constipation K59.00 and Bronchitis J40 [facility] [address] [place] [id number] Nov, [facility] [address] [place] [id number] October, Dysuria R30.0 [facility] [address] [place] [id number] October, Urinary frequency R35.0 and UTI (urinary tract infection) N39.0 [facility] [address], [address] [place], [place] [id number] Sep, Intellectual disability F79 ; COPD (chronic obstructive pulmonary disease ) J44.9 ; Postmenopausal Z78.0 ; Hypertension I10 and Hyperlipidemia E78.5 [facility] [address], [address] [place], [place] [id number] Aug, Pain with urination R30.9 ; Wrist pain, left M25.532 and Pain in scapula M89.8X1 [address], [address] [place], [place] [id number] Jul, Pain with urination R30.9 and Vaginitis N76.[address] [place], [place] [id number] Jul, Screening for breast cancer Z12.[address] [place], [place] [id number] Jul, Acute upper respiratory infection, unspecified J06.9 and Other viral agents as the cause of diseases classified elsewhere B97.[address] [place], [place] [id number] Jun, Cellulitis L03.[address] [place], [place] [address] Jun, Gastritis 535.50 ; URI (upper respiratory infection) J06.9 and Ingrown toenail L60.[address] [id number] Apr, Gastritis 535.50 and Oral lesion K13.[address], [facility] [address] [place], [place] [id number] Mar, Dysuria R30.0 and Pain of right scapula M89.8X1 [address] [place] [id number] Mar, [address], [facility] [address] [place] [id number] Mar, [address], [facility] [address] [place] [id number] Feb, Right knee pain 719.[address], [facility] [address] [place], [place] [address] Feb, [address] [place], [place] [id number] Feb, Right knee pain 719.[address] [place], [place] [id number] Jan, Allergic rhinitis 477.9 and Cough 786.[address] [place], [place] [id number] Jan, [address], [facility] [address] [place] [id number] Jan, Insect bites 919.[address], [facility] [address] [place] [address] Jan, Fatigue 780.79 ; Gastritis 535.50 and Wound abscess 879.9 [facility] [address] [place] [address] Dec, [facility] [address], [address] [place] [id number] Nov, Fatigue 780.79 ; Weakness generalized 780.79 and Gastritis 535.50 [facility] [address] [place], [place] [id number] Nov, [facility] [address] [place], [place] [id number] October, [facility] [address] [place] [id number] October, [facility] [address] [place] [address] October, [facility] [address] [place] [id number] October, [facility] [address] [place] [address] Sep, [facility] [address] [place] [id number] Sep, [facility] [address] [place] [address] Sep, [facility] [address] [place] [id number] Aug, [facility] [address] [place] [id number] Aug, [facility] [address] [place], [place] [id number] Jul, [facility] [address] [place], [place] [id number] Jul, [facility] [address] [place] [id number] May, [facility] [address] [place] [address] May, [facility] [address] [place], [place] [id number] Apr, [facility] [address] [place] [id number] Mar, [facility] [address] [place] [id number] Mar, [facility] [address] [place], [place] [id number] Feb, [facility] [address] [place] [id number] Jan, [facility] [address] [place], [place] [id number] Jan, [facility] [address] [place], [place] [id number] Nov, [facility] [address] [place] [id number] October, [facility] [address] [place] [id number] October, [facility] [address] [place] [address] Sep, [facility] [address] [place] [address] Aug, [facility] [address] [place] [id number] Jul, [facility] [address] [place] [id number] Jun, [facility] [address] [place] [id number] May, [facility] [address] [place] [id number] Mar, [facility] [address] [place] [id number] Mar, [facility] [address] [place] [address] Jan, [facility] [address] [place] [id number] Dec, [facility] [address] [place] [id number] Nov, [facility] [address] [place] [id number] October, [facility] [address] [place] [id number] Aug, [facility] [address] [place] [id number] Jul, [facility] [address] [place] [id number] Jun, [facility] [address] [place] [id number] Jun, [facility] [address] [place] [id number] Jun, [facility] [address] [place] [id number] May, [facility] [address] [place] [id number] Apr, [facility] [address] [place] [id number] Mar, [facility] [address] [place] [address] Mar, [facility] [address] [place] [id number] Mar, IMMUNIZATIONS No Known Immunizations SOCIAL HISTORY Never Assessed REASON FOR VISIT Still with occasional abdominal pain; diarrhea is better PLAN OF CARE Activity Details Follow Up as scheduled with Dr. Prado Reason: VITAL SIGNS Weight 199.4 lbs 2017-08-13 Heart Rate 65 /min 2017-08-13 Temperature 97.3 degrees Fahrenheit 2017-08-13 Height 64 in 2017-08-13 Oximetry 97 % 2017-08-13 BMI 34.22 kg/m2 2017-08-13 Blood pressure systolic 110 mm Hg 2017-08-13 Blood pressure diastolic 70 mm Hg 2017-08-13 MEDICATIONS Medication Instructions Dosage Frequency Start Date End Date Duration Status Celexa 40 MG Orally Once a day 0.5 tablet 24h Active Symbicort 160-4.5 INHALE TWO PUFFS BY MOUTH EVERY 12 HOURS 30 Active Aspirin Adult Low Dose 81 MG Orally Once a day 1-2 tablet 24h Active Lisinopril-Hydrochlorothiazide 20-12.5 Orally bid 2 tablet 12h 30 days Active Metoprolol Tartrate 50 TAKE ONE TABLET BY MOUTH TWICE A DAY 30 Active Linzess 145 MCG PO QD 1 capsule 24h Active Triamcinolone Acetonide 0.1 APPLY TO AFFECTED AREA(S) TWO TIMES A DAY 30 Active Alendronate Sodium 5 MG Orally Once a day 1 tablet 24h May, 30 day(s) Active Meloxicam 15 MG Orally Once a day 1 tablet 24h 30 days Active Nexium 40 TAKE ONE CAPSULE BY MOUTH DAILY 30 Active [place] 5-325 MG Orally every 6 hrs 1 tablet as needed 6h Jun, 10 days Active Albuterol Sulfate (2.5 MG/3ML) 0.083% Inhalation every 4 hrs prn 3 ml Jun, Active Trazodone HCl 100 MG Orally Once a day 1.5 tablet at bedtime 24h Active Nitrostat 0.4 MG Sublingual prn as directed Jan, Active Claritin 10 TAKE ONE TABLET BY MOUTH DAILY 90 Active Zantac 150 MG Orally BID 1 tablet 12h Jul, 15 days Active Ventolin HFA 108 (90 Base) MCG/ACT Inhalation every 4 hrs 2 puffs as needed 4h Active Multivitamin Adult - Active RESULTS No Results PROCEDURES No Known [...]
--- OUTSIDE RECORDS SUMMARY | 2018-02-04 20:09 | XMS REPORT ---
Author Author Rogelio Prado Organization [facility] Address [address], [address] [place], [place] [id number] Care Team Providers Care Adult Care Provider Name Role Phone [place], Rogelio Unavailable PROBLEMS Type Condition ICD9-CM Code [id number] Code Onset Dates Condition Status SNOMED Code Problem Angina pectoris I20.9 Active 226736047 Problem COPD (chronic obstructive pulmonary disease) with acute bronchitis J44.0 Active 668591082259044 Problem Constipation K59.00 Active 43334486 Problem Gastritis without bleeding, unspecified chronicity, unspecified gastritis type K29.70 Active 6184411 Problem Chronic sinusitis, unspecified J32.9 Active 687749282 Problem Obstructive sleep apnea syndrome G47.33 Active 63182027 Problem Closed fracture of one rib of right side with routine healing, subsequent encounter S22.31XD Active 12532816 Problem Acute sinusitis, unspecified J01.90 Active 46502070 Problem Nocturnal hypoxia G47.34 Active 394560279 Problem Episode of recurrent major depressive disorder, unspecified depression episode severity F33.9 Active 132570366 Problem Postmenopausal Z78.0 Active 00728783 Problem COPD (chronic obstructive pulmonary disease) J44.9 Active 09451205 Problem Hyperlipidemia E78.5 Active 81224472 Problem Intellectual disability F79 Active 82531988 Problem Hypertension I10 Active 24092294 Problem COPD exacerbation J44.1 Active 671999974 ALLERGIES No Information ENCOUNTERS Encounter Location Date Diagnosis [facility] [address] [place], [place] [id number] Aug, [facility] [address] [place] [id number] Aug, [facility] [address] [place] [id number] Aug, [facility] [address] [place] [id number] Jul, [facility] [address] [place] [id number] Jul, [facility] [address] [place] [id number] Jun, Acute lower respiratory infection J22 ; Other fatigue R53.83 and History of influenza Z87.09 [facility] [address] [place], [place] [id number] Jun, [facility] [address] [place] [id number] Jun, [facility] [address] [place] [id number] Jun, Acute lower respiratory infection J22 ; Other fatigue R53.83 and History of influenza Z87.09 [facility] [address] [place] [id number] Jun, [facility] [address] [place] [id number] Jun, [facility] [address] [place] [id number] Jun, [facility] [address] [place] [id number] Jun, [facility] [address] [place] [id number] Jun, [facility] [address] [place], [place] [id number] Jun, Acute pain of left shoulder M25.512 [facility] [address] [place] [id number] Jun, Acute pain of left shoulder M25.512 ; Gastritis without bleeding, unspecified chronicity, unspecified gastritis type K29.70 ; Hypertension I10 ; COPD (chronic obstructive pulmonary disease) J44.9 and Hyperlipidemia E78.5 [facility] [address] [place], [place] [id number] Jun, [facility] [address] [place] [id number] Jun, [facility] [address] [place] [id number] May, [facility] [address] [place] [id number] May, Acute pain of left shoulder M25.512 ; Intellectual disability F79 and Closed fracture of one rib of right side with routine healing, subsequent encounter S22.31XD [facility] [address] [place] [id number] May, [facility] [address] [place] [id number] May, [facility] [address] [place] [id number] May, [facility] [address] [place] [id number] May, Acute bronchitis, unspecified organism J20.9 ; Hypertension I10 ; COPD ( chronic obstructive pulmonary disease) J44.9 ; Hyperlipidemia E78.5 ; Nocturnal hypoxia G47.34 and Obstructive sleep apnea syndrome G47.33 [facility] [address] [place] [id number] Apr, Pain with urination R30.9 ; Hypertension I10 ; COPD (chronic obstructive pulmonary disease) J44.9 ; Hyperlipidemia E78.5 and Acute bronchitis, unspecified organism J20.9 [facility] [address] [place] [id number] Apr, Hypertension I10 [facility] [address] [place] [id number] Apr, Acute sinusitis, unspecified J01.90 [facility] [address] [place] [id number] Apr, [facility] [address] [place] [id number] Mar, [facility] [address] [place] [id number] Mar, Other specified bacterial agents as the cause of diseases classified elsewhere B96.89 and Acute sinusitis, unspecified J01.90 [facility] [address] [place] [id number] Mar, Closed fracture of one rib of right side with routine healing, subsequent encounter S22.31XD [facility] [address] [place] [id number] Mar, [facility] [address] [place] [id number] Mar, COPD (chronic obstructive pulmonary disease) J44.9 ; Closed fracture of one rib of right side with routine healing, subsequent encounter S22.31XD ; Hypertension I10 ; Constipation K59.00 ; Angina pectoris I20.9 ; Depression, unspecified depression type F32.9 and Left ear pain H92.02 [facility] [address] [place] [id number] Mar, Elevated glucose R73.09 [facility] [address] [place] [id number] Mar, [facility] [address] [place] [id number] Mar, Left-sided chest wall pain R07.89 and Hypertension I10 [facility] [address] [place] [id number] Feb, [facility] [address] [place] [id number] Feb, Hypertension I10 [facility] [address] [place] [id number] Feb, Closed fracture of one rib of right side, initial encounter S22.31XA ; Intellectual disability F79 ; COPD (chronic obstructive pulmonary disease) J44.9 ; Hyperlipidemia E78.5 and Hypertension I10 [facility] [address] [place] [id number] Feb, [facility] [address] [place] [id number] Feb, Dysuria R30.0 [facility] [address] [place] [id number] Jan, Closed fracture of one rib of right side, initial encounter S22.31XA [facility] [address] [place], [place] [id number] Jan, [facility] [address] [place] [id number] Jan, [facility] [address] [place] [id number] Jan, Contusion of left side of back, initial encounter S20.222A [facility] [address] [place] [id number] Jan, [facility] [address] [place] [id number] Dec, [facility] [address] [place] [id number] Dec, [facility] [address] [place] [id number] Dec, COPD (chronic obstructive pulmonary disease) J44.9 and Hypertension I10 [facility] [address] [place] [id number] Dec, [facility] [address] [place] [id number] Dec, [facility] [address] [place] [id number] Dec, Skin irritation R23.8 [facility] [address] [place] [id number] Dec, [facility] [address] [place] [id number] Dec, [facility] [address] [place] [id number] Dec, [facility] [address] [place] [id number] Dec, [facility] [address] [place] [id number] October, Dysuria R30.0 and Pain of left calf M79.662 [facility] [address] [place] [id number] October, Pain of right great toe M79.674 and Overgrown toenails L60.2 [facility] [address] [place] [id number] Sep, [facility] [address] [place] [id number] Sep, [facility] [address] [place] [id number] Sep, Pain with urination R30.9 ; Abdominal pain, unspecified location R10.9 and Loose stools R19.5 [facility] [address] [place] [id number] Sep, Hypertension I10 [facility] [address] [place] [id number] Sep, [facility] [address] [place] [id number] Sep, Acute cystitis with hematuria N30.01 [facility] [address] [place] [id number] Sep, [facility] [address] [place] [id number] Sep, Urinary frequency R35.0 [facility] [address] [place] [id number] Aug, [facility] [address] [place] [id number] Aug, Screening for breast cancer Z12.39 [facility] [address] [place] [id number] Aug, [facility] [address] [place] [id number] Aug, [facility] [address] [place] [id number] Aug, [facility] [address] [place] [id number] Aug, [facility] [address] [place] [id number] Aug, [facility] [address] [place] [id number] Aug, [facility] [address] [place] [id number] Aug, [facility] [address] [place] [id number] Aug, [facility] [address] [place] [id number] Jul, Dysuria R30.0 [facility] [address] [place] [id number] Jul, Chest wall pain R07.89 and Myofascial pain M79.1 [facility] [address] [place] [id number] Jul, [facility] [address] [place] [id number] Jul, Depression, unspecified depression type F32.9 ; Chronic obstructive pulmonary disease, unspecified COPD type J44.9 ; Hypertension I10 ; Angina pectoris I20.9 and Costochondritis M94.0 [facility] [address] [place] [id number] Jun, Acute non-recurrent maxillary sinusitis J01.00 [facility] [address] [place] [id number] Jun, [facility] [address] [place] [id number] Jun, [facility] [address] [place] [id number] Jun, [facility] [address] [place] [id number] Jun, [facility] [address] [place] [id number] Jun, [facility] [address] [place] [id number] Jun, Left-sided chest wall pain R07.89 and Cough due to bronchospasm J98.01 [facility] [address] [place] [id number] Jun, [facility] [address] [place] [id number] May, [facility] [address] [place], [place] [id number] May, Left-sided chest wall pain R07.89 [facility] [address] [place] [id number] May, Left-sided chest wall pain R07.89 and Cough due to bronchospasm J98.01 [facility] [address] [place] [id number] May, [facility] [address], [facility] [address] [place] [id number] May, Encounter for Medicare annual wellness exam Z00.00 ; Advanced directives, counseling/discussion Z71.89 ; Screening for osteoporosis Z13.820 ; Bilateral hearing loss, unspecified hearing loss type H91.93 ; Intellectual disability F79 ; COPD (chronic obstructive pulmonary disease) J44.9 ; Postmenopausal Z78.0 ; Hypertension I10 ; Hyperlipidemia E78.5 ; Constipation K59.00 and Angina pectoris I20.9 [facility] [address], [facility] [address] [place] [id number] May, [facility] [address] [facility] 200 [place] [id number] May, Left-sided chest wall pain R07.89 and Chest wall contusion, left, initial encounter S20.212A [address], [facility] [address] [place] [id number] May, Dog bite, subsequent encounter W54.0XXD [address] [place] [id number] May, Open bite of right hand, initial encounter S61.451A and Bitten by dog, initial encounter W54.0XXA [address], [facility] [address] [place] [id number] May, [address], [facility] [address] [place] [id number] May, [facility] [address] [place] [id number] Apr, Chest congestion R09.89 ; COPD exacerbation J44.1 and Dermatitis L30.[address], [facility] [address] [place] [id number] Apr, Secondary infection of skin L08.89 and Keratotic lesion L57.[address] [place] [id number] Mar, Hypertension I10 ; Bronchitis J40 and Cough R05 [address], [facility] [address] [place] [id number] Feb, [facility] [address] [place] [id number] Feb, Skin tag L91.[address], [facility] [address] [place] [id number] Dec, Dysuria R30.0 and Vaginitis N76.0 [facility] [address] [place] [id number] Dec, Constipation K59.00 ; Hypertension I10 ; Bronchitis J40 ; Post-tussive emesis R11.10 and Cough R05 [facility] [address] [place] [id number] Dec, [facility] [address] [place] [id number] Nov, Constipation K59.00 and Bronchitis J40 [address], [address] [place] [id number] Nov, [address] [place] [id number] October, Dysuria R30.[address] [place] [id number] October, Urinary frequency R35.0 and UTI (urinary tract infection) N39.[address] [place] [id number] Sep, Intellectual disability F79 ; COPD (chronic obstructive pulmonary disease ) J44.9 ; Postmenopausal Z78.0 ; Hypertension I10 and Hyperlipidemia E78.[address], [address] [place] [id number] Aug, Pain with urination R30.9 ; Wrist pain, left M25.532 and Pain in scapula M89.8X1 [address], [address] [place] [id number] Jul, Pain with urination R30.9 and Vaginitis N76.[address], [address] [place] [id number] Jul, Screening for breast cancer Z12.[address], [address] [place] [id number] Jul, Acute upper respiratory infection, unspecified J06.9 and Other viral agents as the cause of diseases classified elsewhere B97.[address] [place] [id number] Jun, Cellulitis L03.[address], [facility] [address] [place] [id number] Jun, Gastritis 535.50 ; URI (upper respiratory infection) J06.9 and Ingrown toenail L60.[address], [facility] [address] [place], [place] [id number] Apr, Gastritis 535.50 and Oral lesion K13.70 [facility] [address] [place] [id number] Mar, Dysuria R30.0 and Pain of right scapula M89.8X1 [facility] [address] [place] [id number] Mar, [facility] [address] [place] [id number] Mar, [facility] [address] [place] [id number] Feb, Right knee pain 719.46 [facility] [address] [place] [id number] Feb, [facility] [address] [place] [id number] Feb, Right knee pain 719.46 [facility] [address] [place] [id number] Jan, Allergic rhinitis 477.9 and Cough 786.2 [facility] [address] [place] [id number] Jan, [facility] [address] [place] [id number] Jan, Insect bites 919.4 [facility] [address] [place] [id number] Jan, Fatigue 780.79 ; Gastritis 535.50 and Wound abscess 879.9 [facility] [address] [place] [id number] Dec, [facility] [address] [place] [id number] Nov, Fatigue 780.79 ; Weakness generalized 780.79 and Gastritis 535.50 [facility] [address] [place] [id number] Nov, [facility] [address] [place] [id number] October, [facility] [address] [place] [id number] October, [facility] [address] [place] [id number] October, [facility] [address] [place] [id number] October, [facility] [address] [place] [id number] Sep, [facility] [address] [place] [id number] Sep, [facility] [address] [place] [id number] Sep, [facility] [address] [place] [id number] Aug, [facility] [address] [place] [id number] Aug, [facility] [address] [place] [address] Jul, [facility] [address] [place] [address] Jul, [facility] [address] [place] [address] May, [facility] [address] [place] [address] May, [facility] [address] [place] [address] Apr, [facility] [address] [place] [address] Mar, [facility] [address] [place] [address] Mar, [facility] [address] [place] [address] Feb, [facility] [address] [place] [address] Jan, [facility] [address] [place] [address] Jan, [facility] [address] [place] [address] Nov, [facility] [address] [place] [id number] October, [facility] [address] [place] [id number] October, [facility] [address] [place] [id number] Sep, [facility] [address] [place] [id number] Aug, [facility] [address] [place] [id number] Jul, [facility] [address] [place] [id number] Jun, [facility] [address] [place] [id number] May, [facility] [address] [place] [id number] Mar, [facility] [address] [place] [id number] Mar, [facility] [address] [place] [id number] Jan, [facility] [address] [place] [id number] Dec, [facility] [address] [place] [id number] Nov, [facility] [address] [place] [id number] October, [facility] [address] [place] [id number] Aug, [facility] [address] [place] [id number] Jul, [facility] [address] [place] [address] Jun, [facility] [address] [place] [address] Jun, [facility] [address] [place] [id number] Jun, [facility] [address] [place] [id number] May, [facility] [address] [place] [id number] Apr, [facility] [address] [place] [id number] Mar, [facility] [address] [place] [id number] Mar, [facility] [address] [place] [id number] Mar, IMMUNIZATIONS No Known Immunizations SOCIAL HISTORY Never Assessed REASON FOR VISIT [facility] call PLAN OF CARE VITAL SIGNS MEDICATIONS Unknown [...]
--- OUTSIDE RECORDS SUMMARY | 2018-02-04 20:10 | XMS REPORT ---
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 [employer] Miner Name Role Phone Rogelio Prado Unavailable PROBLEMS Type Condition ICD9-CM Code [id number] Code Onset Dates Condition Status SNOMED Code Problem Angina pectoris I20.9 Active 465565214 Problem COPD (chronic obstructive pulmonary disease) with acute bronchitis J44.0 Active 498640337838197 Problem Constipation K59.00 Active 34467836 Problem Chronic sinusitis, unspecified J32.9 Active 151742843 Problem Acute sinusitis, unspecified J01.90 Active 22109344 Problem Closed fracture of one rib of right side with routine healing, subsequent encounter S22.31XD Active 50854798 Problem Depression, unspecified depression type F32.9 Active 56152167 Problem Nocturnal hypoxia G47.34 Active 066409288 Problem Obstructive sleep apnea syndrome G47.33 Active 86494561 Problem Postmenopausal Z78.0 Active 85613757 Problem COPD (chronic obstructive pulmonary disease) J44.9 Active 29954864 Problem Hyperlipidemia E78.5 Active 38319845 Problem Intellectual disability F79 Active 85249968 Problem Hypertension I10 Active 24052602 Problem COPD exacerbation J44.1 Active 567626657 ALLERGIES No Information SOCIAL HISTORY Never Assessed [...]
--- OUTSIDE RECORDS SUMMARY | 2018-02-04 20:10 | XMS REPORT ---
Author Author Sarina Turk [facility] Address [address], [address] [place], [place] [address] Care Team Providers Care Cardroom Worker Name Role Phone OsminSarina garland Unavailable PROBLEMS Type Condition ICD9-CM Code [id number] Code Onset Dates Condition Status SNOMED Code Problem Intellectual disability F79 Active 75085384 Problem Angina pectoris I20.9 Active 719875012 Problem COPD exacerbation J44.1 Active 593317345 Problem Hyperlipidemia E78.5 Active 62077928 Problem Hypertension I10 Active 57393640 Problem Postmenopausal Z78.0 Active 10776341 Problem COPD (chronic obstructive pulmonary disease) J44.9 Active 96711667 Problem Chronic sinusitis, unspecified J32.9 Active 002683006 Problem Acute sinusitis, unspecified J01.90 Active 43855094 Problem COPD (chronic obstructive pulmonary disease) with acute bronchitis J44.0 Active 968575178855771 Problem Constipation K59.00 Active 32522526 Problem Closed fracture of one rib of right side with routine healing, subsequent encounter S22.31XD Active 51161898 Problem Depression, unspecified depression type F32.9 Active 09217294 ALLERGIES Substance Reaction Event Type Date Status PCN Unknown Drug Allergy Apr, Active Zithromax Unknown Drug Allergy Apr, Active SOCIAL HISTORY Never Assessed PLAN OF CARE Activity Details Follow Up as scheduled Reason: Pending Test UA (dip stick only) VITAL SIGNS Weight 202.7 lbs 2017-05-20 Heart Rate 60 /min 2017-05-20 Height 64 in 2017-05-20 BMI 34.79 kg/m2 2017-05-20 Blood pressure systolic 128 mm Hg 2017-05-20 Blood pressure diastolic 88 mm Hg 2017-05-20 MEDICATIONS Medication Instructions Dosage Frequency Start Date End Date Duration Status Metoprolol Tartrate 50 TAKE ONE TABLET BY MOUTH TWICE A DAY Active Nexium 40 TAKE ONE CAPSULE BY MOUTH DAILY 30 Active Meloxicam 7.5 MG Orally twice a day TAKE ONE TABLET BY MOUTH TWICE A DAY 12h 30 days Active Doxycycline Hyclate 100 MG Orally every 12 hrs 1 capsule 12h Mar, 10 days Active Alendronate Sodium 5 MG Orally Once a day 1 tablet 24h May, 30 day(s) Active Claritin 10 TAKE ONE TABLET BY MOUTH DAILY 90 Active Linzess 145 MCG PO QD 1 capsule 24h Active Flonase 50 USE ONE SPRAY IN EACH NOSTRIL TWO TIMES A DAY Active Triamcinolone Acetonide 0.1 APPLY TO AFFECTED AREA(S) TWO TIMES A DAY 30 Active Multivitamin Adult - Active Trazodone HCl 100 MG Orally Once a day 1.5 tablet at bedtime 24h Active Celexa 40 MG Orally Once a day 0.5 tablet 24h Active Symbicort 160-4.5 Inhalation Twice a day INHALE TWO PUFFS BY MOUTH EVERY 12 HOURS 12h Active Lisinopril-Hydrochlorothiazide 20-12.5 Orally bid 2 tablet 12h 30 days Active Nitrostat 0.4 MG Sublingual prn as directed Jan, Active Ventolin HFA 108 (90 Base) MCG/ACT Inhalation every 4 hrs 2 puffs as needed 4h Active Aspirin Adult Low Dose 81 MG Orally Once a day 1-2 tablet 24h Active Albuterol Sulfate (2.5 MG/3ML) 0.083% Inhalation every 4 hrs prn 3 ml Jun, Active RESULTS No Results PROCEDURES Procedure Date Ordered Result Body Site URINE-NO MICRO May 20, 2017 IMMUNIZATIONS No Known Immunizations MEDICAL (GENERAL) HISTORY [...]
--- OUTSIDE RECORDS SUMMARY | 2018-02-04 20:10 | XMS REPORT ---
Author Author Rogelio Prado Organization [facility] Address [address], [address] [place], [place] [id number] Care Team Providers Care Food Analyst Name Role Phone Rogelio Prado Unavailable PROBLEMS Type Condition ICD9-CM Code [id number] Code Onset Dates Condition Status SNOMED Code Problem Angina pectoris I20.9 Active 620700825 Problem COPD (chronic obstructive pulmonary disease) with acute bronchitis J44.0 Active 235148303030873 Problem Constipation K59.00 Active 02252901 Problem Chronic sinusitis, unspecified J32.9 Active 520929694 Problem Acute sinusitis, unspecified J01.90 Active 97256539 Problem Closed fracture of one rib of right side with routine healing, subsequent encounter S22.31XD Active 33089507 Problem Depression, unspecified depression type F32.9 Active 73783799 Problem Nocturnal hypoxia G47.34 Active 674543514 Problem Obstructive sleep apnea syndrome G47.33 Active 41555485 Problem Postmenopausal Z78.0 Active 26667960 Problem COPD (chronic obstructive pulmonary disease) J44.9 Active 67065590 Problem Hyperlipidemia E78.5 Active 31347549 Problem Intellectual disability F79 Active 34425742 Problem Hypertension I10 Active 89555231 Problem COPD exacerbation J44.1 Active 751739418 ALLERGIES Substance Reaction Event Type Date Status PCN Unknown Drug Allergy May, Active Zithromax Unknown Drug Allergy May, Active SOCIAL HISTORY Never Assessed PLAN OF CARE Activity Details Follow Up prn Reason: VITAL SIGNS Weight 207.5 lbs 2017-06-20 Heart Rate 74 /min 2017-06-20 Height 64 in 2017-06-20 BMI 35.61 kg/m2 2017-06-20 Blood pressure systolic 121 mm Hg 2017-06-20 Blood pressure diastolic 70 mm Hg 2017-06-20 MEDICATIONS Medication Instructions Dosage Frequency Start Date End Date Duration Status Alendronate Sodium 5 MG Orally Once a day 1 tablet 24h May, 30 day(s) Active Aspirin Adult Low Dose 81 MG Orally Once a day 1-2 tablet 24h Active Ventolin HFA 108 (90 Base) MCG/ACT Inhalation every 4 hrs 2 puffs as needed 4h Active Nexium 40 TAKE ONE CAPSULE BY MOUTH DAILY 30 Active Flonase 50 USE ONE SPRAY IN EACH NOSTRIL TWO TIMES A DAY Active Meloxicam 7.5 MG Orally twice a day TAKE ONE TABLET BY MOUTH TWICE A DAY 12h 30 days Active Claritin 10 TAKE ONE TABLET BY MOUTH DAILY 90 Active Albuterol Sulfate (2.5 MG/3ML) 0.083% Inhalation every 4 hrs prn 3 ml Jun, Active Linzess 145 MCG PO QD 1 capsule 24h Active Nitrostat 0.4 MG Sublingual prn as directed Jan, Active Multivitamin Adult - Active Metoprolol Tartrate 50 TAKE ONE TABLET BY MOUTH TWICE A DAY Active Triamcinolone Acetonide 0.1 APPLY TO AFFECTED AREA(S) TWO TIMES A DAY 30 Active Symbicort 160-4.5 Inhalation Twice a day INHALE TWO PUFFS BY MOUTH EVERY 12 HOURS 12h Active Lisinopril-Hydrochlorothiazide 20-12.5 Orally bid 2 tablet 12h 30 days Active Trazodone HCl 100 MG Orally Once a day 1.5 tablet at bedtime 24h Active Celexa 40 MG Orally Once a day 0.5 tablet 24h Active RESULTS No Results PROCEDURES No Known [...]
--- OUTSIDE RECORDS SUMMARY | 2018-02-04 20:11 | XMS REPORT ---
Author Author Rogelio Prado Organization [facility] Address [address], [address] [place], [place] [id number] Care Team Providers Care Track Sweeper Name Role Phone Sharon, Rogelio Unavailable PROBLEMS Type Condition ICD9-CM Code UAH61-IO Code Onset Dates Condition Status SNOMED Code Problem Angina pectoris I20.9 Active 439392289 Problem COPD (chronic obstructive pulmonary disease) with acute bronchitis J44.0 Active [id number] Problem Constipation K59.00 Active 32813908 Problem Gastritis without bleeding, unspecified chronicity, unspecified gastritis type K29.70 Active 9076601 Problem Chronic sinusitis, unspecified J32.9 Active 163590887 Problem Obstructive sleep apnea syndrome G47.33 Active 10541317 Problem Closed fracture of one rib of right side with routine healing, subsequent encounter S22.31XD Active 33223684 Problem Acute sinusitis, unspecified J01.90 Active 26200583 Problem Nocturnal hypoxia G47.34 Active 606496026 Problem Episode of recurrent major depressive disorder, unspecified depression episode severity F33.9 Active 273122501 Problem Postmenopausal Z78.0 Active 61341192 Problem COPD (chronic obstructive pulmonary disease) J44.9 Active 85295818 Problem Hyperlipidemia E78.5 Active 57316770 Problem Intellectual disability F79 Active 18367216 Problem Hypertension I10 Active 46045174 Problem COPD exacerbation J44.1 Active 809072520 ALLERGIES No Information ENCOUNTERS Encounter Location Date Diagnosis [facility] [address] [place], [place] [id number] Aug, [facility] [address], [address] [place], [place] [id number] Aug, [facility] [address] [place] [id number] Aug, [facility] [address] [place] [id number] Aug, Encounter for Medicare annual wellness exam Z00.00 and Advanced directives , counseling/discussion Z71.89 [facility] [address] [place], [place] [id number] Jul, [facility] [address] [place] [id number] Jul, [facility] [address] [place] [id number] Jul, [facility] [address] [place] [id number] Jul, Right sided abdominal pain R10.9 ; Hypertension I10 ; COPD (chronic obstructive pulmonary disease) J44.9 and Hyperlipidemia E78.5 [facility] [address] [place] [id number] Jul, [facility] [address] [place] [id number] Jul, [facility] [address] [place] [address] Jul, Acute gastritis without hemorrhage, unspecified gastritis type K29.00 ; Diarrhea, unspecified type R19.7 ; Hypertension I10 ; COPD (chronic obstructive pulmonary disease) J44.9 and Hyperlipidemia E78.5 [facility] [address] [place] [address] Jul, [facility] [address] [place] [address] Jun, Acute lower respiratory infection J22 ; Other fatigue R53.83 and History of influenza Z87.09 [facility] [address] [place] [id number] Jun, [facility] [address] [place] [id number] Jun, [facility] [address] [place] [address] Jun, Acute lower respiratory infection J22 ; Other fatigue R53.83 and History of influenza Z87.09 [facility] [address] [place] [address] Jun, [facility] [address] [place] [id number] Jun, [facility] [address] [place] [id number] Jun, [facility] [address] [place] [address] Jun, [facility] [address] [place] [id number] Jun, [facility] [address] [place] [address] Jun, Acute pain of left shoulder M25.512 [facility] [address] [place] [address] Jun, Acute pain of left shoulder M25.512 ; Gastritis without bleeding, unspecified chronicity, unspecified gastritis type K29.70 ; Hypertension I10 ; COPD (chronic obstructive pulmonary disease) J44.9 and Hyperlipidemia E78.5 [facility] [address] [place], [place] [id number] Jun, [facility] [address] [place] [address] Jun, [facility] [address] [place] [id number] May, [facility] [address] [place] [id number] May, Acute pain of left shoulder M25.512 ; Intellectual disability F79 and Closed fracture of one rib of right side with routine healing, subsequent encounter S22.31XD [facility] [address] [place] [address] May, [facility] [address] [place] [id number] May, [facility] [address] [place] [id number] May, [facility] [address] [place] [id number] May, Acute bronchitis, unspecified organism J20.9 ; Hypertension I10 ; COPD ( chronic obstructive pulmonary disease) J44.9 ; Hyperlipidemia E78.5 ; Nocturnal hypoxia G47.34 and Obstructive sleep apnea syndrome G47.33 [facility] [address] [place] [id number] Apr, Pain with urination R30.9 ; Hypertension I10 ; COPD (chronic obstructive pulmonary disease) J44.9 ; Hyperlipidemia E78.5 and Acute bronchitis, unspecified organism J20.9 [facility] [address] [place] [id number] Apr, Hypertension I10 [facility] [address] [place] [id number] Apr, Acute sinusitis, unspecified J01.90 [facility] [address] [place] [address] Apr, [facility] [address] [place] [id number] Mar, [facility] [address] [place] [id number] Mar, Other specified bacterial agents as the cause of diseases classified elsewhere B96.89 and Acute sinusitis, unspecified J01.90 [facility] [address] [place] [address] Mar, Closed fracture of one rib of right side with routine healing, subsequent encounter S22.31XD [facility] [address] [place] [address] Mar, [facility] [address] [place] [address] Mar, COPD (chronic obstructive pulmonary disease) J44.9 ; Closed fracture of one rib of right side with routine healing, subsequent encounter S22.31XD ; Hypertension I10 ; Constipation K59.00 ; Angina pectoris I20.9 ; Depression, unspecified depression type F32.9 and Left ear pain H92.02 [facility] [address] [place], [place] [address] Mar, Elevated glucose R73.09 [facility] [address] [place] [address] Mar, [facility] [address] [place], [place] [id number] Mar, Left-sided chest wall pain R07.89 and Hypertension I10 [facility] [address] [place], [place] [address] Feb, [facility] [address] [place] [address] Feb, Hypertension I10 [facility] [address] [place], [place] [address] Feb, Closed fracture of one rib of right side, initial encounter S22.31XA ; Intellectual disability F79 ; COPD (chronic obstructive pulmonary disease) J44.9 ; Hyperlipidemia E78.5 and Hypertension I10 [facility] [address] [place], [place] [address] Feb, [facility] [address] [place] [address] Feb, Dysuria R30.0 [facility] [address] [place] [address] Jan, Closed fracture of one rib of right side, initial encounter S22.31XA [facility] [address] [place], [place] [address] Jan, [facility] [address] [place] [address] Jan, [facility] [address] [place] [address] Jan, Contusion of left side of back, initial encounter S20.222A [facility] [address] [place] [address] Jan, [facility] [address] [place], [place] [address] Dec, [facility] [address] [place] [address] Dec, [facility] [address] [place] [address] Dec, COPD (chronic obstructive pulmonary disease) J44.9 and Hypertension I10 [facility] [address] [place] [address] Dec, [facility] [address] [place] [address] Dec, [facility] [address] [place] [address] Dec, Skin irritation R23.8 [facility] [address] [place] [address] Dec, [facility] [address] [place] [address] Dec, [facility] [address] [place] [address] Dec, [facility] [address] [place] [address] Dec, [facility] [address] [place], [place] [address] October, Dysuria R30.0 and Pain of left calf M79.662 [facility] [address] [place], [place] [address] October, Pain of right great toe M79.674 and Overgrown toenails L60.2 [facility] [address] [place], [place] [id number] Sep, [facility] [address] [place] [address] Sep, [facility] [address] [place] [address] Sep, Pain with urination R30.9 ; Abdominal pain, unspecified location R10.9 and Loose stools R19.5 [facility] [address] [place] [address] Sep, Hypertension I10 [facility] [address] [place] [address] Sep, [facility] [address] [place] [address] Sep, Acute cystitis with hematuria N30.01 [facility] [address] [place] [address] Sep, [facility] [address] [place] [address] Sep, Urinary frequency R35.0 [facility] [address] [place] [address] Aug, [facility] [address] [place], [place] [address] Aug, Screening for breast cancer Z12.39 [facility] [address] [place], [place] [address] Aug, [facility] [address] [place] [address] Aug, [facility] [address] [place] [address] Aug, [facility] [address] [place] [address] Aug, [facility] [address] [place] [address] Aug, [facility] [address] [place] [address] Aug, [facility] [address] [place] [address] Aug, [facility] [address] [place] [address] Aug, [facility] [address] [place] [address] Jul, Dysuria R30.0 [facility] [address] [place], [place] [address] Jul, Chest wall pain R07.89 and Myofascial pain M79.1 [facility] [address] [place], [place] [address] Jul, [facility] [address] [place] [address] Jul, Depression, unspecified depression type F32.9 ; Chronic obstructive pulmonary disease, unspecified COPD type J44.9 ; Hypertension I10 ; Angina pectoris I20.9 and Costochondritis M94.0 [facility] [address] [place] [address] Jun, Acute non-recurrent maxillary sinusitis J01.00 [facility] [address] [place], [place] [address] Jun, [facility] [address] [place] [address] Jun, [facility] [address] [place] [address] Jun, [facility] [address] [place] [address] Jun, [facility] [address] [place] [address] Jun, [facility] [address] [place] [address] Jun, Left-sided chest wall pain R07.89 and Cough due to bronchospasm J98.01 [facility] [address] [place] [address] Jun, [facility] [address] [place] [address] May, [facility] [address] [place] [address] May, Left-sided chest wall pain R07.89 [facility] [address] [place] [address] May, Left-sided chest wall pain R07.89 and Cough due to bronchospasm J98.01 [facility] [address] [place] [address] May, [facility] [address] [place] [address] May, Encounter for Medicare annual wellness exam Z00.00 ; Advanced directives, counseling/discussion Z71.89 ; Screening for osteoporosis Z13.820 ; Bilateral hearing loss, unspecified hearing loss type H91.93 ; Intellectual disability F79 ; COPD (chronic obstructive pulmonary disease) J44.9 ; Postmenopausal Z78.0 ; Hypertension I10 ; Hyperlipidemia E78.5 ; Constipation K59.00 and Angina pectoris I20.9 [facility] [address] [place], [place] [address] May, [facility] [address] [place] [address] May, Left-sided chest wall pain R07.89 and Chest wall contusion, left, initial encounter S20.212A [facility] [address] [place], [place] [id number] 13 May, 2016 Dog bite, subsequent encounter W54.0XXD [facility] [address] [place] [address] May, Open bite of right hand, initial encounter S61.451A and Bitten by dog, initial encounter W54.0XXA [facility] [address] [place], [place] [address] May, [facility] [address] [place] [address] May, [facility] [address] [place] [address] Apr, Chest congestion R09.89 ; COPD exacerbation J44.1 and Dermatitis L30.9 [facility] [address] [place] [address] Apr, Secondary infection of skin L08.89 and Keratotic lesion L57.0 [facility] [address] [place], [place] [id number] Mar, Hypertension I10 ; Bronchitis J40 and Cough R05 [facility] [address] [place], [place] [address] Feb, [facility] [address] [place] [address] Feb, Skin tag L91.[address] [place] [address] Dec, Dysuria R30.0 and Vaginitis N76.0 [facility] [address] [place], [place] [address] Dec, Constipation K59.00 ; Hypertension I10 ; Bronchitis J40 ; Post-tussive emesis R11.10 and Cough R05 [facility] [address] [place] [address] Dec, [facility] [address] [place] [address] Nov, Constipation K59.00 and Bronchitis J40 [facility] [address] [place] [address] Nov, [facility] [address] [place] [id number] October, Dysuria R30.0 [facility] [address] [place], [place] [id number] October, Urinary frequency R35.0 and UTI (urinary tract infection) N39.0 [facility] [address] [place] [address] Sep, Intellectual disability F79 ; COPD (chronic obstructive pulmonary disease ) J44.9 ; Postmenopausal Z78.0 ; Hypertension I10 and Hyperlipidemia E78.5 [facility] [address] [place], [place] [id number] Aug, Pain with urination R30.9 ; Wrist pain, left M25.532 and Pain in scapula M89.8X1 [address], [facility] [address] [place] [id number] Jul, Pain with urination R30.9 and Vaginitis N76.[address], [facility] [address] [place] [address] Jul, Screening for breast cancer Z12.[address], [facility] [address] [place], [place] [id number] Jul, Acute upper respiratory infection, unspecified J06.9 and Other viral agents as the cause of diseases classified elsewhere B97.[address] [place] [address] Jun, Cellulitis L03.[address], [facility] [address] [place], [place] [address] Jun, Gastritis 535.50 ; URI (upper respiratory infection) J06.9 and Ingrown toenail L60.[address], [facility] [address] [place], [place] [address] Apr, Gastritis 535.50 and Oral lesion K13.[address], [facility] [address] [place] [address] Mar, Dysuria R30.0 and Pain of right scapula M89.8X1 [address], [address] [place], [place] [address] Mar, [address], [facility] [address] [place] [address] Mar, [address], [facility] [address] [place] [address] Feb, Right knee pain 719.[address], [address] [place], [place] [address] Feb, [address] [place] [address] Feb, Right knee pain 719.[address], [facility] [address] [place], [place] [address] Jan, Allergic rhinitis 477.9 and Cough 786.[address], [address] [place], [place] [address] Jan, [address], [facility] [address] [place] [address] Jan, Insect bites 919.4 [facility] [address] [place], [place] [address] Jan, Fatigue 780.79 ; Gastritis 535.50 and Wound abscess 879.9 [facility] [address] [place], [place] [address] Dec, [facility] [address] [place] [address] Nov, Fatigue 780.79 ; Weakness generalized 780.79 and Gastritis 535.50 [facility] [address] [place], [place] [address] Nov, [facility] [address] [place] [address] October, [facility] [address] [place] [address] October, [facility] [address] [place] [address] October, [facility] [address] [place] [address] October, [facility] [address] [place] [address] Sep, [facility] [address] [place] [address] Sep, [facility] [address] [place] [address] Sep, [facility] [address] [place] [address] Aug, [facility] [address] [place] [address] Aug, [facility] [address] [place] [id number] Jul, [facility] [address] [place] [address] Jul, [facility] [address] [place], [place] [address] May, [facility] [address] [place] [address] May, [facility] [address] [place], [place] [id number] Apr, [facility] [address] [place] [address] Mar, [facility] [address] [place] [address] Mar, [facility] [address] [place], [place] [address] Feb, [facility] [address] [place] [address] Jan, [facility] [address] [place] [address] Jan, [facility] [address] [place] [address] Nov, [facility] [address] [place] [address] October, [facility] [address] [place] [address] October, [facility] [address] [place] [address] Sep, [facility] [address] [place] [address] Aug, [facility] [address] [place] [address] Jul, [facility] [address] [place] [address] Jun, [facility] [address] [place] [address] May, [facility] [address] [place] [address] Mar, [facility] [address] [place] [address] Mar, [facility] [address] [place] [address] Jan, [facility] [address] [place] [address] Dec, [facility] [address] [place] [address] Nov, [facility] [address] [place], [place] [address] October, [facility] [address] [place] [address] Aug, [facility] [address] [place] [address] Jul, [facility] [address] [place] [address] Jun, [facility] [address] [place] [address] Jun, [facility] [address] [place] [address] Jun, [facility] [address] [place] [address] May, [facility] [address] [place] [address] Apr, [facility] [address] [place] [id number] Mar, [facility] [address] [place] [address] Mar, [facility] [address] [place], [place] [id number] Mar, IMMUNIZATIONS No Known Immunizations SOCIAL HISTORY Never Assessed REASON FOR VISIT AWV-DS PLAN OF CARE Activity Details Follow Up 1 Year Reason: VITAL SIGNS Height 64 in 2017-08-26 MEDICATIONS Medication Instructions Dosage Frequency Start Date End Date Duration Status Nitrostat 0.4 MG Sublingual prn as directed Jan, Active Aspirin Adult Low Dose 81 MG Orally Once a day 1-2 tablet 24h Active Ventolin HFA 108 (90 Base) MCG/ACT Inhalation every 4 hrs 2 puffs as needed 4h Active Albuterol Sulfate (2.5 MG/3ML) 0.083% Inhalation every 4 hrs prn 3 ml Jun, Active Fairview 5-325 MG Orally every 6 hrs 1 tablet as needed 6h Jun, 10 days Active Trazodone HCl 100 MG Orally Once a day 1.5 tablet at bedtime 24h Active Meloxicam 15 MG Orally Once a day 1 tablet 24h 30 days Active Nexium 40 TAKE ONE CAPSULE BY MOUTH DAILY 30 Active Metoprolol Tartrate 50 TAKE ONE TABLET BY MOUTH TWICE A DAY 30 Active Celexa 40 MG Orally Once a day 0.5 tablet 24h Active Claritin 10 TAKE ONE TABLET BY MOUTH DAILY 90 Active Multivitamin Adult - Active Lisinopril-Hydrochlorothiazide 20-12.5 TAKE TWO TABLETS BY MOUTH TWICE A DAY 30 Active Linzess 145 MCG PO QD 1 capsule 24h Active Triamcinolone Acetonide 0.1 APPLY TO AFFECTED AREA(S) TWO TIMES A DAY 30 Active Symbicort 160-4.5 INHALE TWO PUFFS BY MOUTH EVERY 12 HOURS 30 Active Alendronate Sodium 5 MG Orally Once a day 1 tablet 24h May, 30 day(s) Active Zantac 150 MG Orally BID 1 tablet 12h Jul, 15 days Active RESULTS No Results PROCEDURES Procedure Date Ordered Result Body Site TOBACCO NON-USER August 26, 2017 BMI>=30OR<22 QUINN NO FOLLOWUP August 26, 2017 SCREEN MAMMO DOC REV August 26, 2017 PT TOBACCO SCREEN RCVD TLK August 26, 2017 FALL RISK ASSESSMENT DOCD August 26, 2017 MOST RECENT DIASTOLIC BP < 90MM HG August 26, 2017 MOST RECENT SYSTOLIC BP < 140MM HG August 26, 2017 COLORECTAL CA SCREEN DOC REV August 26, 2017 ASPIRIN/OTH ANTITHROMBOTIC TX USED August 26, 2017 ANNUAL WELLNESS VST; PPS SUBSQT VST August 26, 2017 PNEUMOC VAC/ADMIN/RCVD August 26, 2017 FLU IMMUN NOT ADMIN RSN DOC CLIN August 26, 2017 NEGATIVE DEPRESSION SCREENING August 26, 2017 INSTRUCTIONS MEDICATIONS ADMINISTERED No Known Medications MEDICAL [...]
--- OUTSIDE RECORDS SUMMARY | 2018-02-04 20:11 | XMS REPORT ---
Author Author Rogelio Prado Organization [facility] Address [address] [place], [place] [id number] Care Team Providers Care Tariff Inspector Name Role Phone [place], Rogelio Unavailable PROBLEMS Type Condition ICD9-CM Code ETH74-KO Code Onset Dates Condition Status SNOMED Code Problem Constipation K59.00 Active 31135833 Problem Closed fracture of one rib of right side with routine healing, subsequent encounter S22.31XD Active 61124967 Problem COPD (chronic obstructive pulmonary disease) with acute bronchitis J44.0 Active 158031941522676 Problem BMI 35.0-35.9,adult Z68.35 Active 840950564 Problem Obstructive sleep apnea syndrome G47.33 Active 83848523 Problem Acute sinusitis, unspecified J01.90 Active 13021565 Problem Nocturnal hypoxia G47.34 Active 579940491 Problem Gastritis without bleeding, unspecified chronicity, unspecified gastritis type K29.70 Active 6349278 Problem Chronic sinusitis, unspecified J32.9 Active 187518545 Problem Episode of recurrent major depressive disorder, unspecified depression episode severity F33.9 Active 950069099 Problem Hyperlipidemia E78.5 Active 42508441 Problem COPD (chronic obstructive pulmonary disease) J44.9 Active 55597783 Problem Intellectual disability F79 Active 82693574 Problem Hypertension I10 Active 48409054 Problem COPD exacerbation J44.1 Active 449000223 Problem Postmenopausal Z78.0 Active 56474360 Problem Angina pectoris I20.9 Active 142468947 ALLERGIES No Information ENCOUNTERS Encounter Location Date Diagnosis [facility] [address] [place], [place] [id number] Aug, [facility] [address] [place] [id number] October, [facility] [address] [place] [id number] October, [facility] [address] [place] [id number] October, [facility] [address] [place] [id number] October, Hypertension I10 ; COPD (chronic obstructive pulmonary disease) J44.9 ; Hyperlipidemia E78.5 ; COPD exacerbation J44.1 ; Episode of recurrent major depressive disorder, unspecified depression episode severity F33.9 and BMI 35.0- 35.9,adult Z68.35 [facility] [address] [place] [id number] October, [facility] [address] [place] [id number] Sep, [facility] [address] [place] [id number] Sep, [facility] [address] [place] [id number] Sep, Hypertension I10 ; COPD (chronic obstructive pulmonary disease) J44.9 ; Nocturnal hypoxia G47.34 and Obstructive sleep apnea syndrome G47.33 [facility] [address] [place] [id number] Sep, [facility] [address] [place] [id number] Sep, [facility] [address] [place] [id number] Aug, [facility] [address] [place] [id number] Aug, [facility] [address] [place] [id number] Aug, Encounter for screening mammogram for malignant neoplasm of breast Z12.31 ; Tinnitus of right ear H93.11 and Obstructive sleep apnea G47.33 [facility] [address] [place] [id number] Aug, [facility] [address] [place] [id number] Aug, Encounter for Medicare annual wellness exam Z00.00 and Advanced directives , counseling/discussion Z71.89 [facility] [address] [place] [id number] Jul, [facility] [address] [place] [id number] Jul, [facility] [address] [place] [id number] Jul, [facility] [address] [place] [id number] Jul, Right sided abdominal pain R10.9 ; Hypertension I10 ; COPD (chronic obstructive pulmonary disease) J44.9 and Hyperlipidemia E78.5 [facility] [address] [place] [id number] Jul, [facility] [address] [place] [id number] Jul, [facility] [address] [place] [id number] Jul, Acute gastritis without hemorrhage, unspecified gastritis type K29.00 ; Diarrhea, unspecified type R19.7 ; Hypertension I10 ; COPD (chronic obstructive pulmonary disease) J44.9 and Hyperlipidemia E78.5 [facility] [address] [place] [id number] Jul, [facility] [address] [place] [id number] Jun, Acute lower respiratory infection J22 ; Other fatigue R53.83 and History of influenza Z87.09 [facility] [address] [place] [id number] Jun, [facility] [address] [place] [id number] Jun, [facility] [address] [place] [id number] Jun, Acute lower respiratory infection J22 ; Other fatigue R53.83 and History of influenza Z87.09 [facility] [address] [place] [id number] Jun, [facility] [address] [place] [id number] Jun, [facility] [address] [place] [id number] Jun, [facility] [address] [place] [id number] Jun, [facility] [address] [place] [id number] Jun, [facility] [address] [place] [id number] Jun, Acute pain of left shoulder M25.512 [facility] [address] [place] [id number] Jun, Acute pain of left shoulder M25.512 ; Gastritis without bleeding, unspecified chronicity, unspecified gastritis type K29.70 ; Hypertension I10 ; COPD (chronic obstructive pulmonary disease) J44.9 and Hyperlipidemia E78.5 [facility] [address] [place] [id number] Jun, [facility] [address] [place] [id number] Jun, [facility] [address] [place] [id number] May, [facility] [address] [place] [id number] May, Acute pain of left shoulder M25.512 ; Intellectual disability F79 and Closed fracture of one rib of right side with routine healing, subsequent encounter S22.31XD [facility] [address] [place] [id number] May, [facility] [address] [place] [id number] May, [facility] [address] [place] [id number] May, [facility] [address] [place] [id number] May, Acute bronchitis, unspecified organism J20.9 ; Hypertension I10 ; COPD ( chronic obstructive pulmonary disease) J44.9 ; Hyperlipidemia E78.5 ; Nocturnal hypoxia G47.34 and Obstructive sleep apnea syndrome G47.33 [facility] [address] [place] [id number] Apr, Pain with urination R30.9 ; Hypertension I10 ; COPD (chronic obstructive pulmonary disease) J44.9 ; Hyperlipidemia E78.5 and Acute bronchitis, unspecified organism J20.9 [facility] [address] [place], [place] [id number] Apr, Hypertension I10 [facility] [address] [place] [id number] Apr, Acute sinusitis, unspecified J01.90 [facility] [address] [place] [id number] Apr, [facility] [address] [place] [id number] Mar, [facility] [address] [place], [place] [id number] Mar, Other specified bacterial agents as the cause of diseases classified elsewhere B96.89 and Acute sinusitis, unspecified J01.90 [facility] [address] [place] [id number] Mar, Closed fracture of one rib of right side with routine healing, subsequent encounter S22.31XD [facility] [address] [place] [id number] Mar, [facility] [address] [place] [id number] Mar, COPD (chronic obstructive pulmonary disease) J44.9 ; Closed fracture of one rib of right side with routine healing, subsequent encounter S22.31XD ; Hypertension I10 ; Constipation K59.00 ; Angina pectoris I20.9 ; Depression, unspecified depression type F32.9 and Left ear pain H92.02 [facility] [address] [place] [id number] Mar, Elevated glucose R73.09 [facility] [address] [place] [id number] Mar, [facility] [address] [place], [place] [id number] Mar, Left-sided chest wall pain R07.89 and Hypertension I10 [facility] [address] [place] [id number] Feb, [facility] [address] [place] [id number] Feb, Hypertension I10 [facility] [address] [place] [id number] Feb, Closed fracture of one rib of right side, initial encounter S22.31XA ; Intellectual disability F79 ; COPD (chronic obstructive pulmonary disease) J44.9 ; Hyperlipidemia E78.5 and Hypertension I10 [facility] [address] [place] [id number] Feb, [facility] [address] [place] [id number] Feb, Dysuria R30.0 [facility] [address] [place], [place] [id number] Jan, Closed fracture of one rib of right side, initial encounter S22.31XA [facility] [address] [place] [id number] Jan, [facility] [address] [place] [address] Jan, [facility] [address] [place] [id number] Jan, Contusion of left side of back, initial encounter S20.222A [facility] [address] [place] [id number] Jan, [facility] [address] [place] [id number] Dec, [facility] [address] [place] [id number] Dec, [facility] [address] [place] [id number] Dec, COPD (chronic obstructive pulmonary disease) J44.9 and Hypertension I10 [facility] [address] [place] [id number] Dec, [facility] [address] [place] [id number] Dec, [facility] [address] [place] [id number] Dec, Skin irritation R23.8 [facility] [address] [place] [address] Dec, [facility] [address] [place] [id number] Dec, [facility] [address] [place] [id number] Dec, [facility] [address] [place] [address] Dec, [facility] [address] [place], [place] [id number] October, Dysuria R30.0 and Pain of left calf M79.662 [facility] [address] [place] [id number] October, Pain of right great toe M79.674 and Overgrown toenails L60.2 [facility] [address] [place] [id number] Sep, [facility] [address] [place] [address] Sep, [facility] [address] [place] [id number] Sep, Pain with urination R30.9 ; Abdominal pain, unspecified location R10.9 and Loose stools R19.5 [facility] [address] [place] [id number] Sep, Hypertension I10 [facility] [address] [place] [id number] Sep, [facility] [address] [place] [address] Sep, Acute cystitis with hematuria N30.01 [facility] [address] [place] [address] Sep, [facility] [address] [place] [id number] Sep, Urinary frequency R35.0 [facility] [address] [place] [address] Aug, [facility] [address] [place] [id number] Aug, Screening for breast cancer Z12.39 [facility] [address] [place] [id number] Aug, [facility] [address] [place] [id number] Aug, [facility] [address] [place] [id number] Aug, [facility] [address] [place] [id number] Aug, [facility] [address] [place] [id number] Aug, [facility] [address] [place] [id number] Aug, [facility] [address] [place] [id number] Aug, [facility] [address] [place] [id number] Aug, [facility] [address] [place] [id number] Jul, Dysuria R30.0 [facility] [address] [place], [place] [id number] Jul, Chest wall pain R07.89 and Myofascial pain M79.1 [facility] [address] [place] [id number] Jul, [facility] [address] [place] [id number] Jul, Depression, unspecified depression type F32.9 ; Chronic obstructive pulmonary disease, unspecified COPD type J44.9 ; Hypertension I10 ; Angina pectoris I20.9 and Costochondritis M94.0 [facility] [address] [place] [id number] Jun, Acute non-recurrent maxillary sinusitis J01.00 [facility] [address] [place] [id number] Jun, [facility] [address] [place] [id number] Jun, [facility] [address] [place] [id number] Jun, [facility] [address] [place] [id number] Jun, [facility] [address] [place] [id number] Jun, [facility] [address] [place] [id number] Jun, Left-sided chest wall pain R07.89 and Cough due to bronchospasm J98.01 [facility] [address] [place] [id number] Jun, [facility] [address] [place] [id number] May, [facility] [address] [place] [id number] May, Left-sided chest wall pain R07.89 [facility] [address] [place] [id number] May, Left-sided chest wall pain R07.89 and Cough due to bronchospasm J98.01 [facility] [address] [place] [id number] May, [facility] [address] [place] [id number] May, Encounter for Medicare annual wellness exam Z00.00 ; Advanced directives, counseling/discussion Z71.89 ; Screening for osteoporosis Z13.820 ; Bilateral hearing loss, unspecified hearing loss type H91.93 ; Intellectual disability F79 ; COPD (chronic obstructive pulmonary disease) J44.9 ; Postmenopausal Z78.0 ; Hypertension I10 ; Hyperlipidemia E78.5 ; Constipation K59.00 and Angina pectoris I20.[address] [place] [id number] May, [facility] [address] [place] [id number] May, Left-sided chest wall pain R07.89 and Chest wall contusion, left, initial encounter S20.212A [address], [address] [place], [place] [id number] May, Dog bite, subsequent encounter W54.0XXD [address], [address] [place] [id number] May, Open bite of right hand, initial encounter S61.451A and Bitten by dog, initial encounter W54.0XXA [facility] [address] [place] [id number] May, [facility] [address] [place] [id number] May, [facility] [address] [place] [id number] Apr, Chest congestion R09.89 ; COPD exacerbation J44.1 and Dermatitis L30.[address] [place], [place] [id number] Apr, Secondary infection of skin L08.89 and Keratotic lesion L57.0 [facility] [address] [place], [place] [id number] Mar, Hypertension I10 ; Bronchitis J40 and Cough R05 [facility] [address] [place] [id number] Feb, [facility] [address] [place] [id number] Feb, Skin tag L91.8 [facility] [address] [place], [place] [id number] Dec, Dysuria R30.0 and Vaginitis N76.0 [facility] [address] [place] [id number] Dec, Constipation K59.00 ; Hypertension I10 ; Bronchitis J40 ; Post-tussive emesis R11.10 and Cough R05 [facility] [address] [place] [id number] Dec, [facility] [address] [place] [id number] Nov, Constipation K59.00 and Bronchitis J40 [facility] [address] [place] [id number] Nov, [facility] [address] [place] [id number] October, Dysuria R30.0 [facility] [address] [place] [id number] October, Urinary frequency R35.0 and UTI (urinary tract infection) N39.0 [facility] [address] [place] [id number] Sep, Intellectual disability F79 ; COPD (chronic obstructive pulmonary disease ) J44.9 ; Postmenopausal Z78.0 ; Hypertension I10 and Hyperlipidemia E78.5 [facility] [address] [place] [id number] Aug, Pain with urination R30.9 ; Wrist pain, left M25.532 and Pain in scapula M89.8X1 [facility] [address] [place] [id number] Jul, Pain with urination R30.9 and Vaginitis N76.0 [facility] [address] [place], [place] [id number] Jul, Screening for breast cancer Z12.[address] [place] [id number] Jul, Acute upper respiratory infection, unspecified J06.9 and Other viral agents as the cause of diseases classified elsewhere B97.[address] [place] [id number] Jun, Cellulitis L03.[address] [place] [id number] Jun, Gastritis 535.50 ; URI (upper respiratory infection) J06.9 and Ingrown toenail L60.[address] [place] [id number] Apr, Gastritis 535.50 and Oral lesion K13.[address], [facility] [address] [place] [id number] Mar, Dysuria R30.0 and Pain of right scapula M89.8X1 [address], [facility] 200 [place], [place] [id number] Mar, [address] [place] [id number] Mar, [address], [facility] [address] [place] [id number] Feb, Right knee pain 719.[address], [facility] [address] [place] [id number] Feb, [address], [facility] [address] [place] [id number] Feb, Right knee pain 719.[address] [place] [id number] Jan, Allergic rhinitis 477.9 and Cough 786.[address], [facility] [address] [place] [id number] Jan, [address], [facility] [address] [place] [id number] Jan, Insect bites 919.[address] [place] [id number] Jan, Fatigue 780.79 ; Gastritis 535.50 and Wound abscess 879.[address] [place] [id number] Dec, [address], [address] [place] [id number] Nov, Fatigue 780.79 ; Weakness generalized 780.79 and Gastritis 535.[address] [place] [id number] Nov, [facility] [address] [place] [id number] October, [facility] [address] [place] [id number] October, [facility] [address] [place] [id number] October, [facility] [address] [place] [id number] October, [facility] [address] [place] [address] Sep, [facility] [address] [place] [id number] Sep, [facility] [address] [place] [id number] Sep, [facility] [address] [place] [id number] Aug, [facility] [address] [place] [id number] Aug, [facility] [address] [place] [id number] Jul, [facility] [address] [place] [id number] Jul, [facility] [address] [place] [id number] May, [facility] [address] [place] [id number] May, [facility] [address] [place] [id number] Apr, [facility] [address] [place] [id number] Mar, [facility] [address] [place] [id number] Mar, [facility] [address] [place] [id number] Feb, [facility] [address] [place] [id number] Jan, [facility] [address] [place] [id number] Jan, [facility] [address] [place] [id number] Nov, [facility] [address] [place] [id number] October, [facility] [address] [place] [id number] October, [facility] [address] [place] [id number] Sep, [facility] [address] [place] [id number] Aug, [facility] [address] [place] [id number] Jul, [facility] [address] [place] [address] Jun, [facility] [address] [place] [id number] May, [facility] [address] [place] [id number] Mar, [facility] [address] [place] [address] Mar, [facility] [address] [place] [id number] Jan, [facility] [address] [place] [id number] Dec, [facility] [address] [place] [id number] Nov, [facility] [address] [place] [id number] October, [facility] [address] [place] [id number] Aug, [facility] [address] [place] [id number] Jul, [facility] [address] [place] [id number] Jun, [facility] [address] [place] [id number] Jun, [facility] [address] [place] [id number] Jun, [facility] [address] [place] [id number] May, [facility] [address] [place] [id number] Apr, [facility] [address] [place] [id number] Mar, [facility] [address] [place] [id number] Mar, [facility] [address] [place], [place] [id number] Mar, IMMUNIZATIONS No Known Immunizations SOCIAL HISTORY Never Assessed REASON FOR VISIT order for brief assistance PLAN OF CARE VITAL SIGNS MEDICATIONS Unknown [...]
--- OUTSIDE RECORDS SUMMARY | 2018-02-04 20:11 | XMS REPORT ---
Author Author Sarina Turk [facility] Address [address], [address] [place], [place] [address] Care Team Providers Care Bass String Winder Name Role Phone Sarina Turk Unavailable PROBLEMS Type Condition ICD9-CM Code QWF44-IT Code Onset Dates Condition Status SNOMED Code Problem Angina pectoris I20.9 Active 887056617 Problem COPD (chronic obstructive pulmonary disease) with acute bronchitis J44.0 Active 444367651292471 Problem Constipation K59.00 Active 64097619 Problem Chronic sinusitis, unspecified J32.9 Active 370259786 Problem Acute sinusitis, unspecified J01.90 Active 59308524 Problem Closed fracture of one rib of right side with routine healing, subsequent encounter S22.31XD Active 75854376 Problem Depression, unspecified depression type F32.9 Active 46295759 Problem Nocturnal hypoxia G47.34 Active 274410237 Problem Obstructive sleep apnea syndrome G47.33 Active 04289760 Problem Postmenopausal Z78.0 Active 86606378 Problem COPD (chronic obstructive pulmonary disease) J44.9 Active 27584381 Problem Hyperlipidemia E78.5 Active 48810893 Problem Intellectual disability F79 Active 64423185 Problem Hypertension I10 Active 52685394 Problem COPD exacerbation J44.1 Active 631977138 ALLERGIES No Information SOCIAL HISTORY Never Assessed [...]
--- OUTSIDE RECORDS SUMMARY | 2018-02-04 20:12 | XMS REPORT ---
Author Author Rogelio Prado Organization [facility] Address [address], [address] [place], [place] [id number] Care Team Providers Care Client Services Vice President Name Role Phone Theodosia, Rogelio Unavailable PROBLEMS Type Condition ICD9-CM Code [id number] Code Onset Dates Condition Status SNOMED Code Problem Angina pectoris I20.9 Active 815191256 Problem COPD (chronic obstructive pulmonary disease) with acute bronchitis J44.0 Active [id number] Problem Constipation K59.00 Active 66179805 Problem Gastritis without bleeding, unspecified chronicity, unspecified gastritis type K29.70 Active 0149012 Problem Chronic sinusitis, unspecified J32.9 Active 755884805 Problem Obstructive sleep apnea syndrome G47.33 Active 94965041 Problem Closed fracture of one rib of right side with routine healing, subsequent encounter S22.31XD Active 75812050 Problem Acute sinusitis, unspecified J01.90 Active 11412057 Problem Nocturnal hypoxia G47.34 Active 384825744 Problem Episode of recurrent major depressive disorder, unspecified depression episode severity F33.9 Active 573916464 Problem Postmenopausal Z78.0 Active 29431245 Problem COPD (chronic obstructive pulmonary disease) J44.9 Active 19420881 Problem Hyperlipidemia E78.5 Active 94371830 Problem Intellectual disability F79 Active 47327899 Problem Hypertension I10 Active 63626489 Problem COPD exacerbation J44.1 Active 839514858 ALLERGIES No Information ENCOUNTERS Encounter Location Date Diagnosis [facility] [address] [place], [place] [id number] Aug, [facility] [address] [place] [id number] Aug, [facility] [address] [place] [id number] Aug, [facility] [address] [place] [id number] Jul, [facility] [address] [place] [id number] Jul, [facility] [address] [place] [id number] Jul, Right sided abdominal pain R10.9 ; Hypertension I10 ; COPD (chronic obstructive pulmonary disease) J44.9 and Hyperlipidemia E78.5 [facility] [address] [place] [id number] Jul, [facility] [address] [place] [id number] Jul, [facility] [address] [place] [address] Jul, Acute gastritis without hemorrhage, unspecified gastritis type K29.00 ; Diarrhea, unspecified type R19.7 ; Hypertension I10 ; COPD (chronic obstructive pulmonary disease) J44.9 and Hyperlipidemia E78.5 [facility] [address] [place] [id number] Jul, [facility] [address] [place] [id number] Jun, Acute lower respiratory infection J22 ; Other fatigue R53.83 and History of influenza Z87.09 [facility] [address] [place] [address] Jun, [facility] [address] [place] [id number] Jun, [facility] [address] [place] [id number] Jun, Acute lower respiratory infection J22 ; Other fatigue R53.83 and History of influenza Z87.09 [facility] [address] [place] [id number] Jun, [facility] [address] [place] [id number] Jun, [facility] [address] [place] [id number] Jun, [facility] [address] [place] [address] Jun, [facility] [address] [place] [id number] Jun, [facility] [address] [place] [address] Jun, Acute pain of left shoulder M25.512 [facility] [address] [place] [id number] Jun, Acute pain of left shoulder M25.512 ; Gastritis without bleeding, unspecified chronicity, unspecified gastritis type K29.70 ; Hypertension I10 ; COPD (chronic obstructive pulmonary disease) J44.9 and Hyperlipidemia E78.5 [facility] [address] [place] [id number] Jun, [facility] [address] [place] [id number] Jun, [facility] [address] [place] [id number] May, [facility] [address] [place], [place] [id number] May, Acute pain of left shoulder M25.512 ; Intellectual disability F79 and Closed fracture of one rib of right side with routine healing, subsequent encounter S22.31XD [facility] [address] [place] [id number] May, [facility] [address] [place] [id number] May, [facility] [address] [place] [id number] May, [facility] [address] [place] [address] May, Acute bronchitis, unspecified organism J20.9 ; Hypertension I10 ; COPD ( chronic obstructive pulmonary disease) J44.9 ; Hyperlipidemia E78.5 ; Nocturnal hypoxia G47.34 and Obstructive sleep apnea syndrome G47.33 [facility] [address] [place] [id number] Apr, Pain with urination R30.9 ; Hypertension I10 ; COPD (chronic obstructive pulmonary disease) J44.9 ; Hyperlipidemia E78.5 and Acute bronchitis, unspecified organism J20.9 [facility] [address] [place] [id number] Apr, Hypertension I10 [facility] [address] [place] [id number] Apr, Acute sinusitis, unspecified J01.90 [facility] [address] [place] [id number] Apr, [facility] [address] [place] [id number] Mar, [facility] [address] [place] [address] Mar, Other specified bacterial agents as the cause of diseases classified elsewhere B96.89 and Acute sinusitis, unspecified J01.90 [facility] [address] [place] [id number] Mar, Closed fracture of one rib of right side with routine healing, subsequent encounter S22.31XD [place] [address] [place] [id number] Mar, [facility] [address] [place] [id number] Mar, COPD (chronic obstructive pulmonary disease) J44.9 ; Closed fracture of one rib of right side with routine healing, subsequent encounter S22.31XD ; Hypertension I10 ; Constipation K59.00 ; Angina pectoris I20.9 ; Depression, unspecified depression type F32.9 and Left ear pain H92.02 [facility] [address] [place] [id number] Mar, Elevated glucose R73.09 [facility] [address] [place] [address] Mar, [facility] [address] [place] [id number] Mar, Left-sided chest wall pain R07.89 and Hypertension I10 [facility] [address] [place] [id number] Feb, [facility] [address] [place] [address] Feb, Hypertension I10 [facility] [address] [place] [address] Feb, Closed fracture of one rib of right side, initial encounter S22.31XA ; Intellectual disability F79 ; COPD (chronic obstructive pulmonary disease) J44.9 ; Hyperlipidemia E78.5 and Hypertension I10 [facility] [address] [place] [id number] Feb, [facility] [address] [place] [address] Feb, Dysuria R30.0 [facility] [address] [place] [id number] Jan, Closed fracture of one rib of right side, initial encounter S22.31XA [facility] [address] [place] [address] Jan, [facility] [address] [place] [id number] Jan, [facility] [address] [place] [address] Jan, Contusion of left side of back, initial encounter S20.222A [facility] [address] [place] [id number] Jan, [facility] [address] [place] [address] Dec, [facility] [address] [place] [address] Dec, [facility] [address] [place] [id number] Dec, COPD (chronic obstructive pulmonary disease) J44.9 and Hypertension I10 [facility] [address] [place] [address] Dec, [facility] [address] [place] [id number] Dec, [facility] [address] [place] [address] Dec, Skin irritation R23.8 [facility] [address] [place] [address] Dec, [facility] [address] [place] [id number] Dec, [facility] [address] [place] [address] Dec, [facility] [address] [place] [address] Dec, [facility] [address] [place] [id number] October, Dysuria R30.0 and Pain of left calf M79.662 [facility] [address] [place] [id number] October, Pain of right great toe M79.674 and Overgrown toenails L60.2 [facility] [address] [place] [address] Sep, [facility] [address] [place] [address] Sep, [facility] [address] [place] [id number] Sep, Pain with urination R30.9 ; Abdominal pain, unspecified location R10.9 and Loose stools R19.5 [facility] [address] [place] [address] Sep, Hypertension I10 [facility] [address] [place] [address] Sep, [facility] [address] [place] [address] Sep, Acute cystitis with hematuria N30.01 [facility] [address] [place] [address] Sep, [facility] [address] [place] [id number] Sep, Urinary frequency R35.0 [facility] [address] [place] [address] Aug, [facility] [address] [place] [id number] Aug, Screening for breast cancer Z12.39 [facility] [address] [place] [address] Aug, [facility] [address] [place] [address] Aug, [facility] [address] [place] [id number] Aug, [facility] [address] [place] [address] Aug, [facility] [address] [place] [address] Aug, [facility] [address] [place] [address] Aug, [facility] [address] [place] [id number] Aug, [facility] [address] [place] [address] Aug, [facility] [address] [place] [address] Jul, Dysuria R30.0 [facility] [address] [place] [address] Jul, Chest wall pain R07.89 and Myofascial pain M79.1 [facility] [address] [place] [address] Jul, [facility] [address] [place] [id number] Jul, Depression, unspecified depression type F32.9 ; Chronic obstructive pulmonary disease, unspecified COPD type J44.9 ; Hypertension I10 ; Angina pectoris I20.9 and Costochondritis M94.0 [facility] [address] [place] [address] Jun, Acute non-recurrent maxillary sinusitis J01.00 [facility] [address] [place] [id number] Jun, [facility] [address] [place] [id number] Jun, [facility] [address] [place] [address] Jun, [facility] [address] [place] [address] Jun, [facility] [address] [place] [address] Jun, [facility] [address] [place] [address] Jun, Left-sided chest wall pain R07.89 and Cough due to bronchospasm J98.01 [facility] [address] [place] [id number] Jun, [facility] [address] [place] [address] May, [facility] [address] [place] [id number] May, Left-sided chest wall pain R07.89 [facility] [address] [place] [id number] May, Left-sided chest wall pain R07.89 and Cough due to bronchospasm J98.01 [facility] [address] [place] [id number] May, [facility] [address] [place] [address] May, Encounter for Medicare annual wellness exam Z00.00 ; Advanced directives, counseling/discussion Z71.89 ; Screening for osteoporosis Z13.820 ; Bilateral hearing loss, unspecified hearing loss type H91.93 ; Intellectual disability F79 ; COPD (chronic obstructive pulmonary disease) J44.9 ; Postmenopausal Z78.0 ; Hypertension I10 ; Hyperlipidemia E78.5 ; Constipation K59.00 and Angina pectoris I20.9 [facility] [address] [place] [id number] May, [facility] [address] [place] [address] May, Left-sided chest wall pain R07.89 and Chest wall contusion, left, initial encounter S20.212A [facility] [address] [place] [address] May, Dog bite, subsequent encounter W54.0XXD [facility] [address] [place] [address] May, Open bite of right hand, initial encounter S61.451A and Bitten by dog, initial encounter W54.0XXA [facility] [address] [place] [id number] May, [facility] [address] [place] [id number] May, [facility] [address] [place] [id number] Apr, Chest congestion R09.89 ; COPD exacerbation J44.1 and Dermatitis L30.9 [facility] [address] [place], [place] [address] Apr, Secondary infection of skin L08.89 and Keratotic lesion L57.0 [facility] [address] [place] [address] Mar, Hypertension I10 ; Bronchitis J40 and Cough R05 [facility] [address] [place], [place] [address] Feb, [facility] [address] [place] [address] Feb, Skin tag L91.8 [facility] [address] [place] [address] Dec, Dysuria R30.0 and Vaginitis N76.0 [facility] [address] [place] [address] Dec, Constipation K59.00 ; Hypertension I10 ; Bronchitis J40 ; Post-tussive emesis R11.10 and Cough R05 [facility] [address] [place] [id number] Dec, [facility] [address] [place] [id number] Nov, Constipation K59.00 and Bronchitis J40 [facility] [address] [place] [id number] Nov, [facility] [address] [place] [address] October, Dysuria R30.0 [facility] [address] [place] [address] October, Urinary frequency R35.0 and UTI (urinary tract infection) N39.0 [facility] [address] [place] [id number] Sep, Intellectual disability F79 ; COPD (chronic obstructive pulmonary disease ) J44.9 ; Postmenopausal Z78.0 ; Hypertension I10 and Hyperlipidemia E78.5 [facility] [address] [place], [place] [id number] Aug, Pain with urination R30.9 ; Wrist pain, left M25.532 and Pain in scapula M89.8X1 [facility] [address] [place] [id number] Jul, Pain with urination R30.9 and Vaginitis N76.[address] [place] [address] Jul, Screening for breast cancer Z12.[address], [facility] [address] [place], [place] [id number] Jul, Acute upper respiratory infection, unspecified J06.9 and Other viral agents as the cause of diseases classified elsewhere B97.[address], [facility] [address] [place] [id number] Jun, Cellulitis L03.[address] [place] [address] Jun, Gastritis 535.50 ; URI (upper respiratory infection) J06.9 and Ingrown toenail L60.[address], [facility] [address] [place] [address] Apr, Gastritis 535.50 and Oral lesion K13.[address], [facility] [address] [place] [address] Mar, Dysuria R30.0 and Pain of right scapula M89.8X1 [address] [place], [place] [id number] Mar, [address], [address] [place] [id number] Mar, [address], [address] [place] [id number] Feb, Right knee pain 719.[address] [place] [id number] Feb, [address], [facility] [address] [place] [id number] Feb, Right knee pain 719.[address] [place] [address] Jan, Allergic rhinitis 477.9 and Cough 786.[address] [place] [address] Jan, [address], [facility] [address] [place] [address] Jan, Insect bites 919.[address] [place] [address] Jan, Fatigue 780.79 ; Gastritis 535.50 and Wound abscess 879.[address] [place], [place] [id number] Dec, [facility] [address] [place], [place] [id number] Nov, Fatigue 780.79 ; Weakness generalized 780.79 and Gastritis 535.50 [facility] [address] [place] [id number] Nov, [facility] [address] [place], [place] [id number] October, [facility] [address] [place] [id number] October, [facility] [address] [place] [id number] October, [facility] [address] [place] [id number] October, [facility] [address] [place] [id number] Sep, [facility] [address] [place] [address] Sep, [facility] [address] [place], [place] [id number] Sep, [facility] [address] [place] [id number] Aug, [facility] [address] [place], [place] [id number] Aug, [facility] [address] [place] [id number] Jul, [facility] [address] [place] [id number] Jul, [facility] [address] [place] [id number] May, [facility] [address] [place] [id number] May, [facility] [address] [place] [id number] Apr, [facility] [address] [place] [address] Mar, [facility] [address] [place] [id number] Mar, [facility] [address] [place] [id number] Feb, [facility] [address] [place] [id number] Jan, [facility] [address] [place] [id number] Jan, [facility] [address] [place] [id number] Nov, [facility] [address] [place] [address] October, [facility] [address] [place] [address] October, [facility] [address] [place] [id number] Sep, [facility] [address] [place] [address] Aug, [facility] [address] [place] [id number] Jul, [facility] [address] [place] [address] Jun, [facility] [address] [place] [address] May, [facility] [address] [place] [address] Mar, [facility] [address] [place] [address] Mar, [facility] [address] [place] [address] Jan, [facility] [address] [place] [id number] Dec, [facility] [address] [place] [address] Nov, [facility] [address] [place] [id number] October, [facility] [address] [place] [id number] Aug, [facility] [address] [place], [place] [address] Jul, [facility] [address] [place] [id number] Jun, [facility] [address] [place] [address] Jun, [facility] [address] [place] [id number] Jun, [facility] [address] [place] [address] May, [facility] [address] [place] [id number] Apr, [facility] [address] [place] [id number] Mar, [facility] [address] [place] [address] Mar, [facility] [address] [place] [id number] Mar, IMMUNIZATIONS No Known Immunizations SOCIAL HISTORY Never Assessed REASON FOR VISIT please call PLAN OF CARE VITAL SIGNS MEDICATIONS [...]
--- OUTSIDE RECORDS SUMMARY | 2018-02-04 20:12 | XMS REPORT ---
Author Author Rosalee Sarinaandrew Bernal [facility] Address [address], [address] [place], [place] [id number] Care Team Providers Care Contract Negotiator Name Role Phone Sarina Turk Unavailable PROBLEMS Type Condition ICD9-CM Code QLP28-EW Code Onset Dates Condition Status SNOMED Code Problem Angina pectoris I20.9 Active 610206378 Problem COPD (chronic obstructive pulmonary disease) with acute bronchitis J44.0 Active [id number] Problem Constipation K59.00 Active 23512347 Problem Obstructive sleep apnea syndrome G47.33 Active 85818421 Problem Gastritis without bleeding, unspecified chronicity, unspecified gastritis type K29.70 Active 2624505 Problem Nocturnal hypoxia G47.34 Active 742841623 Problem Closed fracture of one rib of right side with routine healing, subsequent encounter S22.31XD Active 42403037 Problem Chronic sinusitis, unspecified J32.9 Active 038906659 Problem Acute sinusitis, unspecified J01.90 Active 44353728 Problem Episode of recurrent major depressive disorder, unspecified depression episode severity F33.9 Active 418239759 Problem Postmenopausal Z78.0 Active 24200790 Problem COPD (chronic obstructive pulmonary disease) J44.9 Active 69909821 Problem Hyperlipidemia E78.5 Active 57642787 Problem Intellectual disability F79 Active 47529691 Problem Hypertension I10 Active 06349947 Problem COPD exacerbation J44.1 Active 256138331 ALLERGIES No Information ENCOUNTERS Encounter Location Date Diagnosis [facility] [address] [place], [place] [id number] Aug, [facility] [address], [address] [place] [id number] October, [facility] [address] [place] [id number] Sep, [facility] [address] [place] [id number] Sep, [facility] [address], [address] [place] [id number] Sep, Hypertension I10 ; COPD (chronic obstructive pulmonary disease) J44.9 ; Nocturnal hypoxia G47.34 and Obstructive sleep apnea syndrome G47.33 [facility] [address] [place] [id number] Sep, [facility] [address] [place] [address] Sep, [facility] [address] [place] [id number] Aug, [facility] [address] [place] [id number] Aug, [facility] [address] [place] [id number] Aug, Encounter for screening mammogram for malignant neoplasm of breast Z12.31 ; Tinnitus of right ear H93.11 and Obstructive sleep apnea G47.33 [facility] [address] [place] [id number] Aug, [facility] [address] [place] [id number] Aug, Encounter for Medicare annual wellness exam Z00.00 and Advanced directives , counseling/discussion Z71.89 [facility] [address] [place] [address] Jul, [facility] [address] [place] [address] Jul, [facility] [address] [place] [id number] Jul, [facility] [address] [place] [id number] Jul, Right sided abdominal pain R10.9 ; Hypertension I10 ; COPD (chronic obstructive pulmonary disease) J44.9 and Hyperlipidemia E78.5 [facility] [address] [place] [id number] Jul, [facility] [address] [place] [id number] Jul, [facility] [address] [place] [address] Jul, Acute gastritis without hemorrhage, unspecified gastritis type K29.00 ; Diarrhea, unspecified type R19.7 ; Hypertension I10 ; COPD (chronic obstructive pulmonary disease) J44.9 and Hyperlipidemia E78.5 [facility] [address] [place] [id number] Jul, [facility] [address] [place] [id number] Jun, Acute lower respiratory infection J22 ; Other fatigue R53.83 and History of influenza Z87.09 [facility] [address] [place] [id number] Jun, [facility] [address] [place] [address] Jun, [facility] [address] [place] [address] Jun, Acute lower respiratory infection J22 ; Other fatigue R53.83 and History of influenza Z87.09 [facility] [address] [place] [id number] Jun, [facility] [address] [place] [id number] Jun, [facility] [address] [place] [address] Jun, [facility] [address] [place] [id number] Jun, [facility] [address] [place] [id number] Jun, [facility] [address] [place] [id number] Jun, Acute pain of left shoulder M25.512 [facility] [address] [place] [id number] Jun, Acute pain of left shoulder M25.512 ; Gastritis without bleeding, unspecified chronicity, unspecified gastritis type K29.70 ; Hypertension I10 ; COPD (chronic obstructive pulmonary disease) J44.9 and Hyperlipidemia E78.5 [facility] [address] [place] [id number] Jun, [facility] [address] [place] [id number] Jun, [facility] [address] [place] [address] May, [facility] [address] [place] [id number] May, Acute pain of left shoulder M25.512 ; Intellectual disability F79 and Closed fracture of one rib of right side with routine healing, subsequent encounter S22.31XD [facility] [address] [place] [id number] May, [facility] [address] [place] [address] May, [facility] [address] [place] [id number] May, [facility] [address] [place] [address] May, Acute bronchitis, unspecified organism J20.9 ; Hypertension I10 ; COPD ( chronic obstructive pulmonary disease) J44.9 ; Hyperlipidemia E78.5 ; Nocturnal hypoxia G47.34 and Obstructive sleep apnea syndrome G47.33 [facility] [address] [place], [place] [id number] Apr, Pain with urination R30.9 ; Hypertension I10 ; COPD (chronic obstructive pulmonary disease) J44.9 ; Hyperlipidemia E78.5 and Acute bronchitis, unspecified organism J20.9 [facility] [address] [place] [id number] Apr, Hypertension I10 [facility] [address] [place] [address] Apr, Acute sinusitis, unspecified J01.90 [facility] [address] [place] [id number] Apr, [facility] [address] [place] [address] Mar, [facility] [address] [place] [id number] Mar, Other specified bacterial agents as the cause of diseases classified elsewhere B96.89 and Acute sinusitis, unspecified J01.90 [facility] [address] [place], [place] [id number] Mar, Closed fracture of one rib of right side with routine healing, subsequent encounter S22.31XD [facility] [address] [place] [id number] Mar, [facility] [address] [place] [id number] Mar, COPD (chronic obstructive pulmonary disease) J44.9 ; Closed fracture of one rib of right side with routine healing, subsequent encounter S22.31XD ; Hypertension I10 ; Constipation K59.00 ; Angina pectoris I20.9 ; Depression, unspecified depression type F32.9 and Left ear pain H92.02 [facility] [address] [place] [id number] Mar, Elevated glucose R73.09 [facility] [address] [place] [address] Mar, [facility] [address] [place] [address] Mar, Left-sided chest wall pain R07.89 and Hypertension I10 [facility] [address] [place] [address] Feb, [facility] [address] [place], [place] [id number] Feb, Hypertension I10 [facility] [address] [place], [place] [address] Feb, Closed fracture of one rib of right side, initial encounter S22.31XA ; Intellectual disability F79 ; COPD (chronic obstructive pulmonary disease) J44.9 ; Hyperlipidemia E78.5 and Hypertension I10 [facility] [address] [place] [id number] Feb, [facility] [address] [place], [place] [address] Feb, Dysuria R30.0 [facility] [address] [place], [place] [address] Jan, Closed fracture of one rib of right side, initial encounter S22.31XA [facility] [address] [place], [place] [address] Jan, [facility] [address] [place] [address] Jan, [facility] [address] [place] [address] Jan, Contusion of left side of back, initial encounter S20.222A [facility] [address] [place], [place] [address] Jan, [facility] [address] [place] [address] Dec, [facility] [address] [place] [id number] Dec, [facility] [address] [place] [address] Dec, COPD (chronic obstructive pulmonary disease) J44.9 and Hypertension I10 [facility] [address] [place] [address] Dec, [facility] [address] [place] [id number] Dec, [facility] [address] [place] [address] Dec, Skin irritation R23.8 [facility] [address] [place] [id number] Dec, [facility] [address] [place] [address] Dec, [facility] [address] [place] [address] Dec, [facility] [address] [place] [address] Dec, [facility] [address] [place] [address] October, Dysuria R30.0 and Pain of left calf M79.662 [facility] [address] [place] [address] October, Pain of right great toe M79.674 and Overgrown toenails L60.2 [facility] [address] [place] [address] Sep, [facility] [address] [place] [address] Sep, [facility] [address] [place] [address] Sep, Pain with urination R30.9 ; Abdominal pain, unspecified location R10.9 and Loose stools R19.5 [facility] [address] [place] [address] Sep, Hypertension I10 [facility] [address] [place] [address] Sep, [facility] [address] [place] [address] Sep, Acute cystitis with hematuria N30.01 [facility] [address] [place] [address] Sep, [facility] [address] [place] [address] Sep, Urinary frequency R35.0 [facility] [address] [place] [address] Aug, [facility] [address] [place], [place] [id number] Aug, Screening for breast cancer Z12.39 [facility] [address] [place] [address] Aug, [facility] [address] [place] [id number] Aug, [facility] [address] [place] [address] Aug, [facility] [address] [place] [address] Aug, [facility] [address] [place] [address] Aug, [facility] [address] [place] [address] Aug, [facility] [address] [place] [address] Aug, [facility] [address] [place] [address] Aug, [facility] [address] [place] [address] Jul, Dysuria R30.0 [facility] [address] [place] [address] Jul, Chest wall pain R07.89 and Myofascial pain M79.1 [facility] [address] [place] [address] Jul, [facility] [address] [place] [id number] Jul, Depression, unspecified depression type F32.9 ; Chronic obstructive pulmonary disease, unspecified COPD type J44.9 ; Hypertension I10 ; Angina pectoris I20.9 and Costochondritis M94.0 [facility] [address] [place] [address] Jun, Acute non-recurrent maxillary sinusitis J01.00 [facility] [address] [place] [id number] Jun, [facility] [address] [place] [id number] Jun, [facility] [address] [place] [id number] Jun, [facility] [address] [place] [address] Jun, [facility] [address] [place] [id number] Jun, [facility] [address] [place] [id number] Jun, Left-sided chest wall pain R07.89 and Cough due to bronchospasm J98.01 [facility] [address] [place] [address] Jun, [facility] [address] [place] [address] May, [facility] [address] [place] [address] May, Left-sided chest wall pain R07.89 [facility] [address] [place] [address] May, Left-sided chest wall pain R07.89 and Cough due to bronchospasm J98.01 [facility] [address] [place] [address] May, [facility] [address] [place] [id number] May, Encounter for Medicare annual wellness exam Z00.00 ; Advanced directives, counseling/discussion Z71.89 ; Screening for osteoporosis Z13.820 ; Bilateral hearing loss, unspecified hearing loss type H91.93 ; Intellectual disability F79 ; COPD (chronic obstructive pulmonary disease) J44.9 ; Postmenopausal Z78.0 ; Hypertension I10 ; Hyperlipidemia E78.5 ; Constipation K59.00 and Angina pectoris I20.9 [facility] [address], [facility] [address] [place] [id number] May, [facility] [address], [facility] [address] [place], [place] [id number] May, Left-sided chest wall pain R07.89 and Chest wall contusion, left, initial encounter S20.212A [address] [place] [id number] May, Dog bite, subsequent encounter W54.0XXD [address] [id number] May, Open bite of right hand, initial encounter S61.451A and Bitten by dog, initial encounter W54.0XXA [facility] [address] [place] [address] May, [facility] [address], [facility] [address] [place] [address] May, [facility] [address], [facility] [address] [place] [id number] Apr, Chest congestion R09.89 ; COPD exacerbation J44.1 and Dermatitis L30.[address] [place] [id number] Apr, Secondary infection of skin L08.89 and Keratotic lesion L57.[address] [place], [place] [id number] Mar, Hypertension I10 ; Bronchitis J40 and Cough R05 [address], [facility] [address] [place] [id number] Feb, [facility] [address] [facility] [address] [place] [id number] Feb, Skin tag L91.[address] [place] [id number] Dec, Dysuria R30.0 and Vaginitis N76.[address], [facility] [address] [place] [address] Dec, Constipation K59.00 ; Hypertension I10 ; Bronchitis J40 ; Post-tussive emesis R11.10 and Cough R05 [address], [facility] [address] [place] [id number] Dec, [address], [facility] [address] [place] [id number] Nov, Constipation K59.00 and Bronchitis J40 [address] [place] [id number] Nov, [address] [place] [id number] October, Dysuria R30.[address] [place] [id number] October, Urinary frequency R35.0 and UTI (urinary tract infection) N39.[address], [facility] [address] [place] [id number] Sep, Intellectual disability F79 ; COPD (chronic obstructive pulmonary disease ) J44.9 ; Postmenopausal Z78.0 ; Hypertension I10 and Hyperlipidemia E78.[address], [facility] [address] [place] [id number] Aug, Pain with urination R30.9 ; Wrist pain, left M25.532 and Pain in scapula M89.8X1 [address] [place] [id number] Jul, Pain with urination R30.9 and Vaginitis N76.[address] [place] [id number] Jul, Screening for breast cancer Z12.[address] [place] [id number] Jul, Acute upper respiratory infection, unspecified J06.9 and Other viral agents as the cause of diseases classified elsewhere B97.[address], [address] [place] [id number] Jun, Cellulitis L03.[address], [facility] [address] [place] [id number] Jun, Gastritis 535.50 ; URI (upper respiratory infection) J06.9 and Ingrown toenail L60.[address], [facility] [address] [place] [id number] Apr, Gastritis 535.50 and Oral lesion K13.[address] [place], [place] [id number] Mar, Dysuria R30.0 and Pain of right scapula M89.8X1 [facility] [address] [place] [id number] Mar, [facility] [address] [place] [address] Mar, [facility] [address] [place], [place] [id number] Feb, Right knee pain 719.46 [facility] [address] [place] [address] Feb, [facility] [address] [place] [id number] Feb, Right knee pain 719.46 [facility] [address] [place] [address] Jan, Allergic rhinitis 477.9 and Cough 786.2 [facility] [address] [place] [id number] Jan, [facility] [address] [place] [id number] Jan, Insect bites 919.4 [facility] [address] [place] [address] Jan, Fatigue 780.79 ; Gastritis 535.50 and Wound abscess 879.9 [facility] [address] [place] [id number] Dec, [facility] [address] [place] [address] Nov, Fatigue 780.79 ; Weakness generalized 780.79 and Gastritis 535.50 [facility] [address] [place] [id number] Nov, [facility] [address] [place] [id number] October, [facility] [address] [place] [address] October, [facility] [address] [place] [id number] October, [facility] [address] [place] [id number] October, [facility] [address] [place] [address] Sep, [facility] [address] [place] [address] Sep, [facility] [address] [place] [address] Sep, [facility] [address] [place] [id number] Aug, [facility] [address] [place] [id number] Aug, [facility] [address] [place] [address] Jul, [facility] [address] [place] [id number] Jul, [facility] [address] [place] [address] May, [facility] [address] [place] [address] May, [facility] [address] [place] [id number] Apr, [facility] [address] [place] [id number] Mar, [facility] [address] [place] [address] Mar, [facility] [address] [place] [id number] Feb, [facility] [address] [place] [address] Jan, [facility] [address] [place] [address] Jan, [facility] [address] [place] [id number] Nov, [facility] [address] [place] [address] October, [facility] [address] [place] [address] October, [facility] [address] [place] [address] Sep, [facility] [address] [place] [address] Aug, [facility] [address] [place] [address] Jul, [facility] [address] [place] [id number] Jun, [facility] [address] [place] [id number] May, [facility] [address] [place] [address] Mar, [facility] [address] [place] [address] Mar, [facility] [address] [place] [id number] Jan, [facility] [address] [place] [address] Dec, [facility] [address] [place] [address] Nov, [facility] [address] [place] [address] October, [facility] [address] [place] [address] Aug, [facility] [address] [place] [address] Jul, [facility] [address] [place] [address] Jun, [facility] [address] [place] [address] Jun, [facility] [address] [place] [address] Jun, [facility] [address] [place] [id number] May, [facility] [address] [place] [address] Apr, [facility] [address] [place] [address] Mar, [facility] [address] [place] [id number] Mar, [facility] [address] [place] [id number] Mar, IMMUNIZATIONS No Known Immunizations SOCIAL HISTORY Never Assessed REASON FOR VISIT CPAP question PLAN OF CARE VITAL SIGNS MEDICATIONS Unknown [...]
--- OUTSIDE RECORDS SUMMARY | 2018-02-04 20:13 | XMS REPORT ---
Author Author Rogelio Prado Organization [facility] Address [address], [address] [place], [place] [address] Care Team Providers Care Instructor Warper Name Role Phone Rogelio Prado Unavailable PROBLEMS Type Condition ICD9-CM Code [id number] Code Onset Dates Condition Status SNOMED Code Problem COPD exacerbation J44.1 Active 336216112 Problem Constipation K59.00 Active 54826825 Problem Angina pectoris I20.9 Active 503392534 Problem Chronic sinusitis, unspecified J32.9 Active 938658280 Problem Acute sinusitis, unspecified J01.90 Active 67960977 Problem COPD (chronic obstructive pulmonary disease) with acute bronchitis J44.0 Active 617650452769818 Problem Chronic obstructive pulmonary disease, unspecified COPD type J44.9 Active 67786647 Problem Closed fracture of one rib of right side with routine healing, subsequent encounter S22.31XD Active 27437746 Problem Depression, unspecified depression type F32.9 Active 65518021 Problem Hypertension I10 Active 80264920 Problem Postmenopausal Z78.0 Active 21678481 Problem COPD (chronic obstructive pulmonary disease) J44.9 Active 54736256 Problem Hyperlipidemia E78.5 Active 09015548 Problem Intellectual disability F79 Active 53067629 ALLERGIES No Information SOCIAL HISTORY Never Assessed PLAN OF CARE VITAL SIGNS MEDICATIONS Medication Instructions Dosage Frequency Start Date End Date Duration Status Lisinopril-Hydrochlorothiazide 20-12.5 Orally bid 2 tablet 12h 30 days Active RESULTS No Results PROCEDURES No [...]
--- OUTSIDE RECORDS SUMMARY | 2018-02-04 20:13 | XMS REPORT ---
Author Author GENERATED, SYSTEM Organization Unknown Address Unknown Phone Unavailable Care Team Providers Care Routing Clerk Name Role Phone DO FRANKLIN ERIC PP Reason For Visit Chief Complaint G47.33 Social History Functional Status Vital Signs Results Problems Encounter Diagnosis No relevant problems exist. Encounters Encounter Diagnosis No relevant problems exist. Plan of Care Procedures No relevant procedures performed. Immunizations No immunizations administered or ordered. Hospital Course Hospital Discharge Instructions Allergies, Adverse Reactions, Alerts This section is senior human resources representative of the current allergy information, at the time of the CCD generation. In the case of regeneration of the CCD, the allergy information may not reflect the state of known allergies at the time of the CCD' s subject visit. * Latex Allergy has not been assessed. * IV Contrast Allergy has not been assessed. Medication Medication reconciliation has not been performed.
--- OUTSIDE RECORDS SUMMARY | 2018-02-04 20:13 | XMS REPORT ---
Author Author Rogelio Prado Organization [facility] Address [address], [address] [place], [place] [id number] Care Team Providers Care Buffing Wheel Former Machine Name Role Phone Rogelio Prdao Unavailable PROBLEMS Type Condition ICD9-CM Code OLX50-RT Code Onset Dates Condition Status SNOMED Code Problem COPD exacerbation J44.1 Active 755076153 Problem Constipation K59.00 Active 27166075 Problem Angina pectoris I20.9 Active 738739125 Problem Chronic sinusitis, unspecified J32.9 Active 727451393 Problem Acute sinusitis, unspecified J01.90 Active 73255175 Problem COPD (chronic obstructive pulmonary disease) with acute bronchitis J44.0 Active 485122482264251 Problem Chronic obstructive pulmonary disease, unspecified COPD type J44.9 Active 87301009 Problem Closed fracture of one rib of right side with routine healing, subsequent encounter S22.31XD Active 79032960 Problem Depression, unspecified depression type F32.9 Active 30478964 Problem Hypertension I10 Active 63863592 Problem Postmenopausal Z78.0 Active 35606607 Problem COPD (chronic obstructive pulmonary disease) J44.9 Active 92592232 Problem Hyperlipidemia E78.5 Active 88299261 Problem Intellectual disability F79 Active 01761965 ALLERGIES No Information SOCIAL HISTORY Never Assessed [...]
--- OUTSIDE RECORDS SUMMARY | 2018-02-04 20:13 | XMS REPORT ---
Author Author Rogelio Prado Organization [facility] Address [address], [facility] [address] [place], [place] [id number] Care Team Providers Care Centrifugal Spinner Name Role Phone [place], Rogelio Unavailable PROBLEMS Type Condition ICD9-CM Code [id number] Code Onset Dates Condition Status SNOMED Code Problem Nocturnal hypoxia G47.34 Active 572926493 Problem Acute sinusitis, unspecified J01.90 Active 51951587 Problem Chronic sinusitis, unspecified J32.9 Active 657478372 Problem Unspecified constipation K59.00 Active 46403551 Problem Episode of recurrent major depressive disorder, unspecified depression episode severity F33.9 Active 976826505 Problem Arthralgia 719.40 Active 16334275 Problem Obstructive sleep apnea syndrome G47.33 Active 72860936 Problem Gastritis without bleeding, unspecified chronicity, unspecified gastritis type K29.70 Active 3991854 Problem Myalgia 729.1 Active 66294326 Problem BMI 35.0-35.9,adult Z68.35 Active 934766236 Problem Hypertension I10 Active 33156524 Problem Postmenopausal Z78.0 Active 41736794 Problem Hyperlipidemia E78.5 Active 03184209 Problem COPD (chronic obstructive pulmonary disease) J44.9 Active 75780516 Problem Angina pectoris I20.9 Active 452178606 Problem Constipation K59.00 Active 71229381 Problem Intellectual disability F79 Active 62472192 Problem COPD (chronic obstructive pulmonary disease) with acute bronchitis J44.0 Active [id number] Problem COPD exacerbation J44.1 Active 377574959 Problem Closed fracture of one rib of right side with routine healing, subsequent encounter S22.31XD Active 99489823 ALLERGIES No Information ENCOUNTERS Encounter Location Date Diagnosis [facility] [address], [address] [place], [place] [id number] Aug, [facility] [address], [address] [place] [id number] Apr, [facility] [address], [address] [place] [id number] Jan, [facility] [address] [place] [id number] Jan, [facility] [address] [place] [id number] Jan, [facility] [address] [place] [id number] Jan, [facility] [address] [place] [id number] Jan, COPD (chronic obstructive pulmonary disease) J44.9 ; Hypertension I10 and Arthralgia, unspecified joint M25.50 [facility] [address] [place] [id number] Jan, Constipation K59.00 [facility] [address], [address] [place] [id number] Dec, Acute cystitis without hematuria N30.00 ; Abdominal cramping R10.9 and Unspecified constipation K59.00 [facility] [address] [place] [id number] Dec, [facility] [address] [place] [id number] Dec, [facility] [address] [place] [id number] Dec, [facility] [address] [place] [id number] Dec, Pain with urination R30.9 [facility] [address] [place] [id number] Dec, [facility] [address] [place] [id number] Dec, [facility] [address] [place] [id number] Nov, COPD (chronic obstructive pulmonary disease) J44.9 ; Hypertension I10 and Vaginal discharge N89.8 [facility] [address] [place] [id number] Nov, [facility] [address] [place] [id number] Nov, COPD (chronic obstructive pulmonary disease) J44.9 ; Angina pectoris I20.9 ; Nocturnal hypoxia G47.34 and Hypertension I10 [facility] [address] [place] [id number] Nov, [facility] [address] [place] [id number] October, [facility] [address] [place] [id number] October, [facility] [address] [place] [id number] October, [facility] [address] [place] [id number] October, Hypertension I10 ; COPD (chronic obstructive pulmonary disease) J44.9 ; Hyperlipidemia E78.5 ; COPD exacerbation J44.1 ; Episode of recurrent major depressive disorder, unspecified depression episode severity F33.9 and BMI 35.0- 35.9,adult Z68.35 [facility] [address] [place] [id number] October, [facility] [address] [place] [id number] Sep, [facility] [address] [place] [id number] Sep, [facility] [address] [place] [id number] Sep, Hypertension I10 ; COPD (chronic obstructive pulmonary disease) J44.9 ; Nocturnal hypoxia G47.34 and Obstructive sleep apnea syndrome G47.33 [facility] [address] [place] [id number] Sep, [facility] [address] [place] [id number] Sep, [facility] [address] [place] [id number] Aug, [facility] [address] [place] [id number] Aug, [facility] [address] [place] [id number] Aug, Encounter for screening mammogram for malignant neoplasm of breast Z12.31 ; Tinnitus of right ear H93.11 and Obstructive sleep apnea G47.33 [facility] [address] [place] [id number] Aug, [facility] [address] [place] [id number] Aug, Encounter for Medicare annual wellness exam Z00.00 and Advanced directives , counseling/discussion Z71.89 [facility] [address] [place] [id number] Jul, [facility] [address] [place] [id number] Jul, [facility] [address] [place] [id number] Jul, [facility] [address] [place] [id number] Jul, Right sided abdominal pain R10.9 ; Hypertension I10 ; COPD (chronic obstructive pulmonary disease) J44.9 and Hyperlipidemia E78.5 [facility] [address] [place] [id number] Jul, [facility] [address] [place] [id number] Jul, [facility] [address] [place] [id number] Jul, Acute gastritis without hemorrhage, unspecified gastritis type K29.00 ; Diarrhea, unspecified type R19.7 ; Hypertension I10 ; COPD (chronic obstructive pulmonary disease) J44.9 and Hyperlipidemia E78.5 [facility] [address] [place] [id number] Jul, [facility] [address] [place] [id number] Jun, Acute lower respiratory infection J22 ; Other fatigue R53.83 and History of influenza Z87.09 [facility] [address] [place] [id number] Jun, [facility] [address] [place] [id number] Jun, [facility] [address] [place] [id number] Jun, Acute lower respiratory infection J22 ; Other fatigue R53.83 and History of influenza Z87.09 [facility] [address] [place] [id number] Jun, [facility] [address] [place] [id number] Jun, [facility] [address] [place] [id number] Jun, [facility] [address] [place] [id number] Jun, [facility] [address] [place] [id number] Jun, [facility] [address] [place] [id number] Jun, Acute pain of left shoulder M25.512 [facility] [address] [place] [id number] Jun, Acute pain of left shoulder M25.512 ; Gastritis without bleeding, unspecified chronicity, unspecified gastritis type K29.70 ; Hypertension I10 ; COPD (chronic obstructive pulmonary disease) J44.9 and Hyperlipidemia E78.5 [facility] [address] [place] [id number] Jun, [facility] [address] [place] [id number] Jun, [facility] [address] [place] [id number] May, [facility] [address] [place] [id number] May, Acute pain of left shoulder M25.512 ; Intellectual disability F79 and Closed fracture of one rib of right side with routine healing, subsequent encounter S22.31XD [facility] [address] [place] [id number] May, [facility] [address] [place] [id number] May, [facility] [address] [place] [address] May, [facility] [address] [place] [id number] May, Acute bronchitis, unspecified organism J20.9 ; Hypertension I10 ; COPD ( chronic obstructive pulmonary disease) J44.9 ; Hyperlipidemia E78.5 ; Nocturnal hypoxia G47.34 and Obstructive sleep apnea syndrome G47.33 [facility] [address] [place] [id number] Apr, Pain with urination R30.9 ; Hypertension I10 ; COPD (chronic obstructive pulmonary disease) J44.9 ; Hyperlipidemia E78.5 and Acute bronchitis, unspecified organism J20.9 [facility] [address] [place] [id number] Apr, Hypertension I10 [facility] [address] [place] [id number] Apr, Acute sinusitis, unspecified J01.90 [facility] [address] [place] [id number] Apr, [facility] [address] [place] [id number] Mar, [facility] [address] [place] [id number] Mar, Other specified bacterial agents as the cause of diseases classified elsewhere B96.89 and Acute sinusitis, unspecified J01.90 [facility] [address] [place] [id number] Mar, Closed fracture of one rib of right side with routine healing, subsequent encounter S22.31XD [facility] [address] [place] [id number] Mar, [facility] [address] [place] [id number] Mar, COPD (chronic obstructive pulmonary disease) J44.9 ; Closed fracture of one rib of right side with routine healing, subsequent encounter S22.31XD ; Hypertension I10 ; Constipation K59.00 ; Angina pectoris I20.9 ; Depression, unspecified depression type F32.9 and Left ear pain H92.02 [facility] [address] [place] [id number] Mar, Elevated glucose R73.09 [facility] [address] [place] [id number] Mar, [facility] [address] [place] [id number] Mar, Left-sided chest wall pain R07.89 and Hypertension I10 [facility] [address] [place] [id number] Feb, [facility] [address] [place] [id number] Feb, Hypertension I10 [facility] [address] [place] [id number] Feb, Closed fracture of one rib of right side, initial encounter S22.31XA ; Intellectual disability F79 ; COPD (chronic obstructive pulmonary disease) J44.9 ; Hyperlipidemia E78.5 and Hypertension I10 [facility] [address] [place] [id number] Feb, [facility] [address] [place] [id number] Feb, Dysuria R30.0 [facility] [address] [place] [id number] Jan, Closed fracture of one rib of right side, initial encounter S22.31XA [facility] [address] [place] [id number] Jan, [facility] [address] [place] [id number] Jan, [facility] [address] [place] [id number] Jan, Contusion of left side of back, initial encounter S20.222A [facility] [address] [place] [id number] Jan, [facility] [address] [place] [id number] Dec, [facility] [address] [place] [id number] Dec, [facility] [address] [place] [address] Dec, COPD (chronic obstructive pulmonary disease) J44.9 and Hypertension I10 [facility] [address] [place] [id number] Dec, [facility] [address] [place] [id number] Dec, [facility] [address] [place] [address] Dec, Skin irritation R23.8 [facility] [address] [place] [id number] Dec, [facility] [address] [place] [address] Dec, [facility] [address] [place] [id number] Dec, [facility] [address] [place] [id number] Dec, [facility] [address] [place] [id number] October, Dysuria R30.0 and Pain of left calf M79.662 [facility] [address] [place] [id number] October, Pain of right great toe M79.674 and Overgrown toenails L60.2 [facility] [address] [place] [address] Sep, [facility] [address] [place] [id number] Sep, [facility] [address] [place] [id number] Sep, Pain with urination R30.9 ; Abdominal pain, unspecified location R10.9 and Loose stools R19.5 [facility] [address] [place] [id number] Sep, Hypertension I10 [facility] [address] [place] [id number] Sep, [facility] [address] [place] [address] Sep, Acute cystitis with hematuria N30.01 [facility] [address] [place] [id number] Sep, [facility] [address] [place] [id number] Sep, Urinary frequency R35.0 [facility] [address] [place] [id number] Aug, [facility] [address] [place] [id number] Aug, Screening for breast cancer Z12.39 [facility] [address] [place] [id number] Aug, [facility] [address] [place] [id number] Aug, [facility] [address] [place] [id number] Aug, [facility] [address] [place] [id number] Aug, [facility] [address] [place] [id number] Aug, [facility] [address] [place] [id number] Aug, [facility] [address] [place] [id number] Aug, [facility] [address] [place] [address] Aug, [facility] [address] [place] [id number] Jul, Dysuria R30.0 [facility] [address] [place] [id number] Jul, Chest wall pain R07.89 and Myofascial pain M79.1 [facility] [address] [place] [id number] Jul, [facility] [address] [place] [id number] Jul, Depression, unspecified depression type F32.9 ; Chronic obstructive pulmonary disease, unspecified COPD type J44.9 ; Hypertension I10 ; Angina pectoris I20.9 and Costochondritis M94.0 [facility] [address] [place] [id number] Jun, Acute non-recurrent maxillary sinusitis J01.00 [facility] [address] [place] [id number] Jun, [facility] [address] [place] [id number] Jun, [facility] [address] [place] [id number] Jun, [facility] [address] [place] [id number] Jun, [facility] [address] [place] [id number] Jun, [facility] [address] [place] [id number] Jun, Left-sided chest wall pain R07.89 and Cough due to bronchospasm J98.01 [facility] [address] [place] [id number] Jun, [facility] [address] [place] [id number] May, [facility] [address] [place] [id number] May, Left-sided chest wall pain R07.89 [facility] [address] [place] [id number] May, Left-sided chest wall pain R07.89 and Cough due to bronchospasm J98.01 [facility] [address] [place] [id number] May, [facility] [address] [place] [id number] May, Encounter for Medicare annual wellness exam Z00.00 ; Advanced directives, counseling/discussion Z71.89 ; Screening for osteoporosis Z13.820 ; Bilateral hearing loss, unspecified hearing loss type H91.93 ; Intellectual disability F79 ; COPD (chronic obstructive pulmonary disease) J44.9 ; Postmenopausal Z78.0 ; Hypertension I10 ; Hyperlipidemia E78.5 ; Constipation K59.00 and Angina pectoris I20.9 [facility] [address] [place] [id number] May, [facility] [address] [place] [id number] May, Left-sided chest wall pain R07.89 and Chest wall contusion, left, initial encounter S20.212A [facility] [address] [place] [id number] May, Dog bite, subsequent encounter W54.0XXD [facility] [address] [place] [id number] May, Open bite of right hand, initial encounter S61.451A and Bitten by dog, initial encounter W54.0XXA [facility] [address] [place] [id number] May, [facility] [address] [place] [id number] May, [facility] [address] [place] [id number] Apr, Chest congestion R09.89 ; COPD exacerbation J44.1 and Dermatitis L30.9 [facility] [address] [place] [id number] Apr, Secondary infection of skin L08.89 and Keratotic lesion L57.0 [facility] [address] [place] [id number] Mar, Hypertension I10 ; Bronchitis J40 and Cough R05 [facility] [address] [place] [id number] Feb, [facility] [address] [place] [id number] Feb, Skin tag L91.[address], [address] [place] [id number] Dec, Dysuria R30.0 and Vaginitis N76.0 [facility] [address] [place] [id number] Dec, Constipation K59.00 ; Hypertension I10 ; Bronchitis J40 ; Post-tussive emesis R11.10 and Cough R05 [facility] [address] [place] [id number] Dec, [facility] [address] [place] [id number] Nov, Constipation K59.00 and Bronchitis J40 [facility] [address], [address] [place] [id number] Nov, [facility] [address], [address] [place] [id number] October, Dysuria R30.[address] [place] [id number] October, Urinary frequency R35.0 and UTI (urinary tract infection) N39.0 [facility] [address] [place], [place] [id number] Sep, Intellectual disability F79 ; COPD (chronic obstructive pulmonary disease ) J44.9 ; Postmenopausal Z78.0 ; Hypertension I10 and Hyperlipidemia E78.5 [facility] [address] [place] [id number] Aug, Pain with urination R30.9 ; Wrist pain, left M25.532 and Pain in scapula M89.8X1 [address], [address] [place] [id number] Jul, Pain with urination R30.9 and Vaginitis N76.[address], [address] [place] [id number] Jul, Screening for breast cancer Z12.[address], [facility] [address] [place], [place] [id number] Jul, Acute upper respiratory infection, unspecified J06.9 and Other viral agents as the cause of diseases classified elsewhere B97.[address] [place] [id number] Jun, Cellulitis L03.[address] [place] [id number] Jun, Gastritis 535.50 ; URI (upper respiratory infection) J06.9 and Ingrown toenail L60.[address] [place] [id number] Apr, Gastritis 535.50 and Oral lesion K13.[address], [facility] [address] [place] [id number] Mar, Dysuria R30.0 and Pain of right scapula M89.8X1 [address], [address] [place] [id number] Mar, [address], [address] [place] [id number] Mar, [address], [address] [place] [id number] Feb, Right knee pain 719.[address], [facility] [address] [place] [id number] Feb, [address], [facility] [address] [place] [id number] Feb, Right knee pain 719.[address], [facility] [address] [place] [id number] Jan, Allergic rhinitis 477.9 and Cough 786.[address], [address] [place], [place] [id number] Jan, [address] [place] [id number] Jan, Insect bites 919.[address], [facility] [address] [place] [address] Jan, Fatigue 780.79 ; Gastritis 535.50 and Wound abscess 879.[address], [facility] [address] [place] [address] Dec, [address], [address] [place] [id number] Nov, Fatigue 780.79 ; Weakness generalized 780.79 and Gastritis 535.50 [facility] [address] [place] [id number] Nov, [facility] [address] [place] [id number] October, [facility] [address] [place] [id number] October, [facility] [address] [place] [id number] October, [facility] [address] [place] [id number] October, [facility] [address] [place] [id number] Sep, [facility] [address] [place] [id number] Sep, [facility] [address] [place] [id number] Sep, [facility] [address] [place] [id number] Aug, [facility] [address] [place] [id number] Aug, [facility] [address] [place] [address] Jul, [facility] [address] [place] [id number] Jul, [facility] [address] [place] [id number] May, [facility] [address] [place] [id number] May, [facility] [address] [place] [id number] Apr, [facility] [address] [place] [id number] Mar, [facility] [address] [place] [id number] Mar, [facility] [address] [place] [id number] Feb, [facility] [address] [place] [id number] Jan, [facility] [address] [place] [id number] Jan, [facility] [address] [place] [id number] Nov, [facility] [address] [place] [address] October, [facility] [address] [place] [address] October, [facility] [address] [place] [id number] Sep, [facility] [address] [place] [id number] Aug, [facility] [address] [place] [id number] Jul, [facility] [address] [place] [id number] Jun, [facility] [address] [place] [id number] May, [facility] [address] [place] [id number] Mar, [facility] [address] [place] [id number] Mar, [facility] [address] [place] [id number] Jan, [facility] [address] [place] [id number] Dec, [facility] [address] [place] [id number] Nov, [facility] [address] [place] [id number] October, [facility] [address] [place] [id number] Aug, [facility] [address] [place] [id number] Jul, [facility] [address] [place] [id number] Jun, [facility] [address] [place] [id number] Jun, [facility] [address] [place] [id number] Jun, [facility] [address] [place] [id number] May, [facility] [address] [place] [id number] Apr, [facility] [address] [place] [id number] Mar, [facility] [address] [place] [id number] Mar, [facility] [address] [place] [id number] Mar, IMMUNIZATIONS No Known Immunizations SOCIAL HISTORY Never Assessed REASON FOR VISIT PLAN OF CARE VITAL SIGNS MEDICATIONS Unknown [...]
--- OUTSIDE RECORDS SUMMARY | 2018-02-04 20:14 | XMS REPORT ---
Author Author Rogelio Prado Organization [facility] Address [address], [facility] [address] [place], [place] [id number] Care Team Providers Care Garbage Person Name Role Phone Hiram, Rogelio Unavailable PROBLEMS Type Condition ICD9-CM Code DEP19-VH Code Onset Dates Condition Status SNOMED Code Problem Nocturnal hypoxia G47.34 Active 763608291 Problem Acute sinusitis, unspecified J01.90 Active 95282050 Problem Chronic sinusitis, unspecified J32.9 Active 997274930 Problem Unspecified constipation K59.00 Active 26573966 Problem Episode of recurrent major depressive disorder, unspecified depression episode severity F33.9 Active 181712554 Problem Arthralgia 719.40 Active 87497793 Problem Obstructive sleep apnea syndrome G47.33 Active 38095998 Problem Gastritis without bleeding, unspecified chronicity, unspecified gastritis type K29.70 Active 0188474 Problem Myalgia 729.1 Active 02849521 Problem BMI 35.0-35.9,adult Z68.35 Active 052033697 Problem Hypertension I10 Active 89393874 Problem Postmenopausal Z78.0 Active 85759083 Problem Hyperlipidemia E78.5 Active 68575281 Problem COPD (chronic obstructive pulmonary disease) J44.9 Active 40535300 Problem Angina pectoris I20.9 Active 152880433 Problem Constipation K59.00 Active 04420991 Problem Intellectual disability F79 Active 45217998 Problem COPD (chronic obstructive pulmonary disease) with acute bronchitis J44.0 Active 157383782924031 Problem COPD exacerbation J44.1 Active 148400991 Problem Closed fracture of one rib of right side with routine healing, subsequent encounter S22.31XD Active [id number] ALLERGIES No Information ENCOUNTERS Encounter Location Date Diagnosis [facility] [address], [address] [place], [place] [id number] Aug, [facility] [address], [address] [place] [id number] Apr, [facility] [address], [address] [place] [id number] Jan, [facility] [address] [place] [address] Jan, [facility] [address] [place] [id number] Jan, [facility] [address] [place] [address] Jan, [facility] [address], [address] [place] [address] Jan, COPD (chronic obstructive pulmonary disease) J44.9 ; Hypertension I10 and Arthralgia, unspecified joint M25.50 [facility] [address] [place] [address] Jan, Constipation K59.00 [facility] [address], [address] [place] [address] Dec, Acute cystitis without hematuria N30.00 ; Abdominal cramping R10.9 and Unspecified constipation K59.00 [facility] [address], [address] [place] [address] Dec, [facility] [address], [address] [place] [address] Dec, [facility] [address], [address] [place] [address] Dec, [facility] [address], [address] [place], [place] [address] Dec, Pain with urination R30.9 [facility] [address] [place] [address] Dec, [facility] [address], [address] [place] [address] Dec, [facility] [address], [address] [place] [id number] Nov, COPD (chronic obstructive pulmonary disease) J44.9 ; Hypertension I10 and Vaginal discharge N89.8 [facility] [address], [address] [place] [id number] Nov, [facility] [address], [address] [place] [address] Nov, COPD (chronic obstructive pulmonary disease) J44.9 ; Angina pectoris I20.9 ; Nocturnal hypoxia G47.34 and Hypertension I10 [facility] [address] [place] [id number] Nov, [facility] [address] [place] [address] October, [facility] [address] [place] [id number] October, [facility] [address] [place] [address] October, [facility] [address] [place] [address] October, Hypertension I10 ; COPD (chronic obstructive pulmonary disease) J44.9 ; Hyperlipidemia E78.5 ; COPD exacerbation J44.1 ; Episode of recurrent major depressive disorder, unspecified depression episode severity F33.9 and BMI 35.0- 35.9,adult Z68.35 [facility] [address] [place] [id number] October, [facility] [address] [place] [address] Sep, [facility] [address] [place] [address] Sep, [facility] [address] [place] [address] Sep, Hypertension I10 ; COPD (chronic obstructive pulmonary disease) J44.9 ; Nocturnal hypoxia G47.34 and Obstructive sleep apnea syndrome G47.33 [facility] [address] [place] [address] Sep, [facility] [address] [place] [address] Sep, [facility] [address] [place] [id number] Aug, [facility] [address] [place] [id number] Aug, [facility] [address] [place] [id number] Aug, Encounter for screening mammogram for malignant neoplasm of breast Z12.31 ; Tinnitus of right ear H93.11 and Obstructive sleep apnea G47.33 [facility] [address] [place] [address] Aug, [facility] [address] [place] [address] Aug, Encounter for Medicare annual wellness exam Z00.00 and Advanced directives , counseling/discussion Z71.89 [facility] [address] [place] [address] Jul, [facility] [address] [place] [address] Jul, [facility] [address] [place] [id number] Jul, [facility] [address] [place] [address] Jul, Right sided abdominal pain R10.9 ; Hypertension I10 ; COPD (chronic obstructive pulmonary disease) J44.9 and Hyperlipidemia E78.5 [facility] [address] [place] [id number] Jul, [facility] [address] [place] [address] Jul, [facility] [address] [place], [place] [address] Jul, Acute gastritis without hemorrhage, unspecified gastritis type K29.00 ; Diarrhea, unspecified type R19.7 ; Hypertension I10 ; COPD (chronic obstructive pulmonary disease) J44.9 and Hyperlipidemia E78.5 [facility] [address] [place] [address] Jul, [facility] [address] [place] [address] Jun, Acute lower respiratory infection J22 ; Other fatigue R53.83 and History of influenza Z87.09 [facility] [address] [place] [address] Jun, [facility] [address] [place] [address] Jun, [facility] [address] [place] [address] Jun, Acute lower respiratory infection J22 ; Other fatigue R53.83 and History of influenza Z87.09 [facility] [address] [place] [address] Jun, [facility] [address] [place] [address] Jun, [facility] [address] [place] [address] Jun, [facility] [address] [place] [address] Jun, [facility] [address] [place] [address] Jun, [facility] [address] [place] [address] Jun, Acute pain of left shoulder M25.512 [facility] [address] [place] [address] Jun, Acute pain of left shoulder M25.512 ; Gastritis without bleeding, unspecified chronicity, unspecified gastritis type K29.70 ; Hypertension I10 ; COPD (chronic obstructive pulmonary disease) J44.9 and Hyperlipidemia E78.5 [facility] [address] [place] [address] Jun, [facility] [address] [place] [address] Jun, [facility] [address] [place] [address] May, [facility] [address] [place] [address] May, Acute pain of left shoulder M25.512 ; Intellectual disability F79 and Closed fracture of one rib of right side with routine healing, subsequent encounter S22.31XD [facility] [address] [place] [address] May, [facility] [address] [place] [address] May, [facility] [address] [place] [address] May, [facility] [address] [place] [address] May, Acute bronchitis, unspecified organism J20.9 ; Hypertension I10 ; COPD ( chronic obstructive pulmonary disease) J44.9 ; Hyperlipidemia E78.5 ; Nocturnal hypoxia G47.34 and Obstructive sleep apnea syndrome G47.33 [facility] [address] [place] [address] Apr, Pain with urination R30.9 ; Hypertension I10 ; COPD (chronic obstructive pulmonary disease) J44.9 ; Hyperlipidemia E78.5 and Acute bronchitis, unspecified organism J20.9 [facility] [address] [place] [address] Apr, Hypertension I10 [facility] [address] [place] [address] Apr, Acute sinusitis, unspecified J01.90 [facility] [address] [place] [id number] Apr, [facility] [address] [place] [address] Mar, [facility] [address], [address] [place], [place] [address] Mar, Other specified bacterial agents as the cause of diseases classified elsewhere B96.89 and Acute sinusitis, unspecified J01.90 [facility] [address] [place] [address] Mar, Closed fracture of one rib of right side with routine healing, subsequent encounter S22.31XD [facility] [address] [place] [id number] Mar, [facility] [address] [place] [id number] Mar, COPD (chronic obstructive pulmonary disease) J44.9 ; Closed fracture of one rib of right side with routine healing, subsequent encounter S22.31XD ; Hypertension I10 ; Constipation K59.00 ; Angina pectoris I20.9 ; Depression, unspecified depression type F32.9 and Left ear pain H92.02 [facility] [address] [place] [address] Mar, Elevated glucose R73.09 [facility] [address] [place], [place] [address] Mar, [facility] [address] [place] [address] Mar, Left-sided chest wall pain R07.89 and Hypertension I10 [facility] [address] [place] [id number] Feb, [facility] [address] [place] [address] Feb, Hypertension I10 [facility] [address] [place] [address] Feb, Closed fracture of one rib of right side, initial encounter S22.31XA ; Intellectual disability F79 ; COPD (chronic obstructive pulmonary disease) J44.9 ; Hyperlipidemia E78.5 and Hypertension I10 [facility] [address] [place] [address] Feb, [facility] [address] [place] [address] Feb, Dysuria R30.0 [facility] [address] [place] [address] Jan, Closed fracture of one rib of right side, initial encounter S22.31XA [facility] [address] [place], [place] [address] Jan, [facility] [address] [place] [address] Jan, [facility] [address] [place] [address] Jan, Contusion of left side of back, initial encounter S20.222A [facility] [address] [place] [address] Jan, [facility] [address] [place] [address] Dec, [facility] [address] [place] [address] Dec, [facility] [address], [address] [place] [address] Dec, COPD (chronic obstructive pulmonary disease) J44.9 and Hypertension I10 [facility] [address] [place] [address] Dec, [facility] [address] [place] [address] Dec, [facility] [address] [place] [address] Dec, Skin irritation R23.8 [facility] [address] [place] [address] Dec, [facility] [address] [place] [address] Dec, [facility] [address] [place] [address] Dec, [facility] [address] [place] [address] Dec, [facility] [address] [place] [address] October, Dysuria R30.0 and Pain of left calf M79.662 [facility] [address] [place] [address] October, Pain of right great toe M79.674 and Overgrown toenails L60.2 [facility] [address] [place] [address] Sep, [facility] [address] [place] [address] Sep, [facility] [address] [place] [address] Sep, Pain with urination R30.9 ; Abdominal pain, unspecified location R10.9 and Loose stools R19.5 [facility] [address] [place] [address] Sep, Hypertension I10 [facility] [address] [place] [address] Sep, [facility] [address], [address] [place] [address] Sep, Acute cystitis with hematuria N30.01 [facility] [address] [place] [address] Sep, [facility] [address] [place] [address] Sep, Urinary frequency R35.0 [facility] [address] [place] [address] Aug, [facility] [address], [address] [place] [address] Aug, Screening for breast cancer Z12.39 [facility] [address] [place] [address] Aug, [facility] [address] [place] [address] Aug, [facility] [address] [place] [address] Aug, [facility] [address] [place] [address] Aug, [facility] [address] [place] [address] Aug, [facility] [address] [place] [address] Aug, [facility] [address] [place] [address] Aug, [facility] [address] [place] [address] Aug, [facility] [address] [place] [address] Jul, Dysuria R30.0 [facility] [address] [place] [address] Jul, Chest wall pain R07.89 and Myofascial pain M79.1 [facility] [address] [place], [place] [address] Jul, [facility] [address] [place] [address] Jul, Depression, unspecified depression type F32.9 ; Chronic obstructive pulmonary disease, unspecified COPD type J44.9 ; Hypertension I10 ; Angina pectoris I20.9 and Costochondritis M94.0 [facility] [address] [place] [address] Jun, Acute non-recurrent maxillary sinusitis J01.00 [facility] [address] [place] [address] Jun, [facility] [address] [place] [address] Jun, [facility] [address] [place] [address] Jun, [facility] [address] [place] [address] Jun, [facility] [address] [place] [address] Jun, [facility] [address] [place] [address] Jun, Left-sided chest wall pain R07.89 and Cough due to bronchospasm J98.01 [facility] [address] [place] [address] Jun, [facility] [address] [place] [address] May, [facility] [address] [place] [address] May, Left-sided chest wall pain R07.89 [facility] [address] [place] [id number] May, Left-sided chest wall pain R07.89 and Cough due to bronchospasm J98.01 [facility] [address] [place] [address] May, [facility] [address] [place] [address] May, Encounter for Medicare annual wellness exam Z00.00 ; Advanced directives, counseling/discussion Z71.89 ; Screening for osteoporosis Z13.820 ; Bilateral hearing loss, unspecified hearing loss type H91.93 ; Intellectual disability F79 ; COPD (chronic obstructive pulmonary disease) J44.9 ; Postmenopausal Z78.0 ; Hypertension I10 ; Hyperlipidemia E78.5 ; Constipation K59.00 and Angina pectoris I20.9 [facility] [address] [place] [address] May, [facility] [address], [address] [place] [address] May, Left-sided chest wall pain R07.89 and Chest wall contusion, left, initial encounter S20.212A [facility] [address] [place] [address] May, Dog bite, subsequent encounter W54.0XXD [facility] [address] [place], [place] [address] May, Open bite of right hand, initial encounter S61.451A and Bitten by dog, initial encounter W54.0XXA [facility] [address] [place] [address] May, [facility] [address] [place] [address] May, [facility] [address], [address] [place] [address] Apr, Chest congestion R09.89 ; COPD exacerbation J44.1 and Dermatitis L30.9 [facility] [address] [place] [address] Apr, Secondary infection of skin L08.89 and Keratotic lesion L57.0 [facility] [address] [place] [address] Mar, Hypertension I10 ; Bronchitis J40 and Cough R05 [facility] [address], [address] [place] [id number] Feb, [facility] [address], [address] [place] [address] Feb, Skin tag L91.[address], [address] [place], [place] [address] Dec, Dysuria R30.0 and Vaginitis N76.0 [facility] [address] [place] [address] Dec, Constipation K59.00 ; Hypertension I10 ; Bronchitis J40 ; Post-tussive emesis R11.10 and Cough R05 [facility] [address], [address] [place], [place] [address] Dec, [facility] [address], [address] [place] [address] Nov, Constipation K59.00 and Bronchitis J40 [facility] [address], [address] [place] [id number] Nov, [facility] [address], [address] [place] [id number] October, Dysuria R30.[address], [address] [place] [address] October, Urinary frequency R35.0 and UTI (urinary tract infection) N39.0 [facility] [address] [place] [address] Sep, Intellectual disability F79 ; COPD (chronic obstructive pulmonary disease ) J44.9 ; Postmenopausal Z78.0 ; Hypertension I10 and Hyperlipidemia E78.5 [facility] [address], [address] [place], [place] [id number] Aug, Pain with urination R30.9 ; Wrist pain, left M25.532 and Pain in scapula M89.8X1 [address], [address] [place], [place] [address] Jul, Pain with urination R30.9 and Vaginitis N76.[address], [address] [place], [place] [address] Jul, Screening for breast cancer Z12.[address], [facility] [address] [place], [place] [address] Jul, Acute upper respiratory infection, unspecified J06.9 and Other viral agents as the cause of diseases classified elsewhere B97.[address] [place], [place] [address] Jun, Cellulitis L03.[address] [place], [place] [address] Jun, Gastritis 535.50 ; URI (upper respiratory infection) J06.9 and Ingrown toenail L60.[address] [place], [place] [address] Apr, Gastritis 535.50 and Oral lesion K13.[address], [facility] [address] [place], [place] [id number] Mar, Dysuria R30.0 and Pain of right scapula M89.8X1 [address], [address] [place] [address] Mar, [address], [address] [place] [address] Mar, [address], [address] [place] [id number] Feb, Right knee pain 719.[address], [facility] [address] [place], [place] [address] Feb, [address], [facility] [address] [place], [place] [id number] Feb, Right knee pain 719.[address], [facility] [address] [place], [place] [address] Jan, Allergic rhinitis 477.9 and Cough 786.[address], [address] [place], [place] [address] Jan, [address] [place], [place] [address] Jan, Insect bites 919.[address], [facility] [address] [place], [place] [address] Jan, Fatigue 780.79 ; Gastritis 535.50 and Wound abscess 879.[address], [facility] [address] [place] [address] Dec, [address], [address] [place] [address] Nov, Fatigue 780.79 ; Weakness generalized 780.79 and Gastritis 535.50 [facility] [address] [place] [address] Nov, [facility] [address] [place], [place] [address] October, [facility] [address] [place] [address] October, [facility] [address] [place] [address] October, [facility] [address] [place] [address] October, [facility] [address] [place] [address] Sep, [facility] [address] [place] [address] Sep, [facility] [address] [place], [place] [address] Sep, [facility] [address] [place], [place] [address] Aug, [facility] [address] [place] [address] Aug, [facility] [address] [place], [place] [address] Jul, [facility] [address] [place], [place] [address] Jul, [facility] [address] [place], [place] [address] May, [facility] [address] [place], [place] [address] May, [facility] [address] [place] [address] Apr, [facility] [address] [place] [address] Mar, [facility] [address] [place], [place] [address] Mar, [facility] [address] [place] [address] Feb, [facility] [address] [place] [address] Jan, [facility] [address] [place] [address] Jan, [facility] [address] [place] [address] Nov, [facility] [address] [place] [address] October, [facility] [address] [place] [address] October, [facility] [address] [place] [address] Sep, [facility] [address] [place] [address] Aug, [facility] [address] [place] [address] Jul, [facility] [address] [place], [place] [address] Jun, [facility] [address] [place] [address] May, [facility] [address] [place] [address] Mar, [facility] [address] [place] [address] Mar, [facility] [address] [place], [place] [address] Jan, [facility] [address] [place] [address] Dec, [facility] [address] [place] [address] Nov, [facility] [address] [place] [address] October, [facility] [address] [place] [address] Aug, [facility] [address] [place] [address] Jul, [facility] [address] [place] [address] Jun, [facility] [address] [place] [address] Jun, [facility] [address] [place] [address] Jun, [facility] [address] [place] [address] May, [facility] [address] [address] [place], [place] [id number] Apr, [facility] [address] [place], [place] [id number] Mar, [facility] [address] [place], [place] [id number] Mar, [facility] [address] [place], [place] [id number] Mar, IMMUNIZATIONS No Known Immunizations SOCIAL HISTORY [...]
--- OUTSIDE RECORDS SUMMARY | 2018-02-04 20:15 | XMS REPORT ---
Author Author Rogelio Prado Organization [facility] Address [address], [facility] [address] [place], [place] [id number] Care Team Providers Care Newswriter Name Role Phone [place], Rogelio Unavailable PROBLEMS Type Condition ICD9-CM Code [id number] Code Onset Dates Condition Status SNOMED Code Problem Nocturnal hypoxia G47.34 Active 084970860 Problem Acute sinusitis, unspecified J01.90 Active 04646682 Problem Chronic sinusitis, unspecified J32.9 Active 771941810 Problem Unspecified constipation K59.00 Active 78810161 Problem Episode of recurrent major depressive disorder, unspecified depression episode severity F33.9 Active 900478946 Problem Arthralgia 719.40 Active 35801187 Problem Obstructive sleep apnea syndrome G47.33 Active 64743003 Problem Gastritis without bleeding, unspecified chronicity, unspecified gastritis type K29.70 Active 7397861 Problem Myalgia 729.1 Active 17484056 Problem BMI 35.0-35.9,adult Z68.35 Active 733680968 Problem Hypertension I10 Active 51055133 Problem Postmenopausal Z78.0 Active 00329977 Problem Hyperlipidemia E78.5 Active 62161377 Problem COPD (chronic obstructive pulmonary disease) J44.9 Active 29164666 Problem Angina pectoris I20.9 Active 224680446 Problem Constipation K59.00 Active 60932962 Problem Intellectual disability F79 Active 53579379 Problem COPD (chronic obstructive pulmonary disease) with acute bronchitis J44.0 Active [id number] Problem COPD exacerbation J44.1 Active 771577657 Problem Closed fracture of one rib of right side with routine healing, subsequent encounter S22.31XD Active 78586912 ALLERGIES No Information ENCOUNTERS Encounter Location Date Diagnosis [facility] [address], [address] [place], [place] [id number] Aug, [facility] [address], [address] [place] [id number] Apr, [facility] [address], [address] [place] [id number] Jan, [facility] [address] [place] [id number] Jan, [facility] [address] [place] [address] Jan, [facility] [address] [place] [address] Jan, [facility] [address] [place] [address] Jan, COPD (chronic obstructive pulmonary disease) J44.9 ; Hypertension I10 and Arthralgia, unspecified joint M25.50 [facility] [address] [place] [address] Jan, Constipation K59.00 [facility] [address] [place] [id number] Dec, Acute cystitis without hematuria N30.00 ; Abdominal cramping R10.9 and Unspecified constipation K59.00 [facility] [address] [place] [address] Dec, [facility] [address] [place] [address] Dec, [facility] [address] [place] [address] Dec, [facility] [address] [place], [place] [address] Dec, Pain with urination R30.9 [facility] [address] [place] [id number] Dec, [facility] [address] [place] [address] Dec, [facility] [address] [place] [id number] Nov, COPD (chronic obstructive pulmonary disease) J44.9 ; Hypertension I10 and Vaginal discharge N89.8 [facility] [address] [place] [address] Nov, [facility] [address] [place] [id number] Nov, COPD (chronic obstructive pulmonary disease) J44.9 ; Angina pectoris I20.9 ; Nocturnal hypoxia G47.34 and Hypertension I10 [facility] [address] [place] [address] Nov, [facility] [address] [place] [address] October, [facility] [address] [place] [address] October, [facility] [address] [place] [id number] October, [facility] [address], [address] [place] [address] October, Hypertension I10 ; COPD (chronic obstructive pulmonary disease) J44.9 ; Hyperlipidemia E78.5 ; COPD exacerbation J44.1 ; Episode of recurrent major depressive disorder, unspecified depression episode severity F33.9 and BMI 35.0- 35.9,adult Z68.35 [facility] [address] [place] [id number] October, [facility] [address] [place] [address] Sep, [facility] [address] [place] [address] Sep, [facility] [address] [place] [address] Sep, Hypertension I10 ; COPD (chronic obstructive pulmonary disease) J44.9 ; Nocturnal hypoxia G47.34 and Obstructive sleep apnea syndrome G47.33 [facility] [address] [place] [address] Sep, [facility] [address] [place] [address] Sep, [facility] [address] [place] [address] Aug, [facility] [address] [place] [address] Aug, [facility] [address] [place] [address] Aug, Encounter for screening mammogram for malignant neoplasm of breast Z12.31 ; Tinnitus of right ear H93.11 and Obstructive sleep apnea G47.33 [facility] [address] [place] [address] Aug, [facility] [address] [place] [address] Aug, Encounter for Medicare annual wellness exam Z00.00 and Advanced directives , counseling/discussion Z71.89 [facility] [address] [place] [address] Jul, [facility] [address] [place] [address] Jul, [facility] [address] [place] [address] Jul, [facility] [address] [place] [id number] Jul, Right sided abdominal pain R10.9 ; Hypertension I10 ; COPD (chronic obstructive pulmonary disease) J44.9 and Hyperlipidemia E78.5 [facility] [address] [place] [address] Jul, [facility] [address] [place] [address] Jul, [facility] [address] [place] [address] Jul, Acute gastritis without hemorrhage, unspecified gastritis type K29.00 ; Diarrhea, unspecified type R19.7 ; Hypertension I10 ; COPD (chronic obstructive pulmonary disease) J44.9 and Hyperlipidemia E78.5 [facility] [address] [place] [address] Jul, [facility] [address] [place] [address] Jun, Acute lower respiratory infection J22 ; Other fatigue R53.83 and History of influenza Z87.09 [facility] [address] [place] [address] Jun, [facility] [address] [place] [address] Jun, [facility] [address] [place] [address] Jun, Acute lower respiratory infection J22 ; Other fatigue R53.83 and History of influenza Z87.09 [facility] [address] [place] [address] Jun, [facility] [address] [place] [address] Jun, [facility] [address] [place] [address] Jun, [facility] [address] [place] [address] Jun, [facility] [address] [place] [address] Jun, [facility] [address] [place] [address] Jun, Acute pain of left shoulder M25.512 [facility] [address] [place] [address] Jun, Acute pain of left shoulder M25.512 ; Gastritis without bleeding, unspecified chronicity, unspecified gastritis type K29.70 ; Hypertension I10 ; COPD (chronic obstructive pulmonary disease) J44.9 and Hyperlipidemia E78.5 [facility] [address] [place] [address] Jun, [facility] [address] [place] [address] Jun, [facility] [address] [place] [address] May, [facility] [address] [place] [address] May, Acute pain of left shoulder M25.512 ; Intellectual disability F79 and Closed fracture of one rib of right side with routine healing, subsequent encounter S22.31XD [facility] [address] [place] [address] May, [facility] [address] [place] [address] May, [facility] [address] [place] [address] May, [facility] [address] [place] [address] May, Acute bronchitis, unspecified organism J20.9 ; Hypertension I10 ; COPD ( chronic obstructive pulmonary disease) J44.9 ; Hyperlipidemia E78.5 ; Nocturnal hypoxia G47.34 and Obstructive sleep apnea syndrome G47.33 [facility] [address] [place] [address] Apr, Pain with urination R30.9 ; Hypertension I10 ; COPD (chronic obstructive pulmonary disease) J44.9 ; Hyperlipidemia E78.5 and Acute bronchitis, unspecified organism J20.9 [facility] [address] [place] [address] Apr, Hypertension I10 [facility] [address] [place] [address] Apr, Acute sinusitis, unspecified J01.90 [facility] [address] [place] [address] Apr, [facility] [address] [place] [address] Mar, [facility] [address] [place] [address] Mar, Other specified bacterial agents as the cause of diseases classified elsewhere B96.89 and Acute sinusitis, unspecified J01.90 [facility] [address] [place] [address] Mar, Closed fracture of one rib of right side with routine healing, subsequent encounter S22.31XD [facility] [address] [place] [address] Mar, [facility] [address] [place] [address] Mar, COPD (chronic obstructive pulmonary disease) J44.9 ; Closed fracture of one rib of right side with routine healing, subsequent encounter S22.31XD ; Hypertension I10 ; Constipation K59.00 ; Angina pectoris I20.9 ; Depression, unspecified depression type F32.9 and Left ear pain H92.02 [facility] [address] [place] [address] Mar, Elevated glucose R73.09 [facility] [address] [place] [address] Mar, [facility] [address] [place] [address] Mar, Left-sided chest wall pain R07.89 and Hypertension I10 [facility] [address] [place] [address] Feb, [facility] [address] [place] [address] Feb, Hypertension I10 [facility] [address] [place] [address] Feb, Closed fracture of one rib of right side, initial encounter S22.31XA ; Intellectual disability F79 ; COPD (chronic obstructive pulmonary disease) J44.9 ; Hyperlipidemia E78.5 and Hypertension I10 [facility] [address] [place] [address] Feb, [facility] [address] [place] [address] Feb, Dysuria R30.0 [facility] [address] [place] [address] Jan, Closed fracture of one rib of right side, initial encounter S22.31XA [facility] [address] [place] [address] Jan, [facility] [address] [place] [address] Jan, [facility] [address] [place] [address] Jan, Contusion of left side of back, initial encounter S20.222A [facility] [address] [place] [address] Jan, [facility] [address] [place] [address] Dec, [facility] [address] [place] [address] Dec, [facility] [address] [place] [address] Dec, COPD (chronic obstructive pulmonary disease) J44.9 and Hypertension I10 [facility] [address] [place] [address] Dec, [facility] [address] [place] [address] Dec, [facility] [address] [place] [address] Dec, Skin irritation R23.8 [facility] [address] [place] [address] Dec, [facility] [address] [place] [address] Dec, [facility] [address] [place] [address] Dec, [facility] [address] [place] [address] Dec, [facility] [address] [place] [address] October, Dysuria R30.0 and Pain of left calf M79.662 [facility] [address] [place] [address] October, Pain of right great toe M79.674 and Overgrown toenails L60.2 [facility] [address] [place] [address] Sep, [facility] [address] [place] [address] Sep, [facility] [address] [place] [address] Sep, Pain with urination R30.9 ; Abdominal pain, unspecified location R10.9 and Loose stools R19.5 [facility] [address] [place] [address] Sep, Hypertension I10 [facility] [address] [place] [address] Sep, [facility] [address] [place] [address] Sep, Acute cystitis with hematuria N30.01 [facility] [address] [place] [address] Sep, [facility] [address] [place] [address] Sep, Urinary frequency R35.0 [facility] [address] [place] [address] Aug, [facility] [address] [place] [address] Aug, Screening for breast cancer Z12.39 [facility] [address] [place] [address] Aug, [facility] [address] [place] [address] Aug, [facility] [address] [place] [address] Aug, [facility] [address] [place] [address] Aug, [facility] [address] [place] [address] Aug, [facility] [address] [place] [address] Aug, [facility] [address] [place] [address] Aug, [facility] [address] [place] [address] Aug, [facility] [address] [place] [address] Jul, Dysuria R30.0 [facility] [address] [place] [address] Jul, Chest wall pain R07.89 and Myofascial pain M79.1 [facility] [address] [place] [address] Jul, [facility] [address] [place] [address] Jul, Depression, unspecified depression type F32.9 ; Chronic obstructive pulmonary disease, unspecified COPD type J44.9 ; Hypertension I10 ; Angina pectoris I20.9 and Costochondritis M94.0 [facility] [address] [place] [address] Jun, Acute non-recurrent maxillary sinusitis J01.00 [facility] [address] [place] [address] Jun, [facility] [address] [place] [address] Jun, [facility] [address] [place] [address] Jun, [facility] [address] [place] [address] Jun, [facility] [address] [place] [address] Jun, [facility] [address] [place] [address] Jun, Left-sided chest wall pain R07.89 and Cough due to bronchospasm J98.01 [facility] [address] [place] [address] Jun, [facility] [address] [place] [address] May, [facility] [address] [place] [address] May, Left-sided chest wall pain R07.89 [facility] [address] [place] [address] May, Left-sided chest wall pain R07.89 and Cough due to bronchospasm J98.01 [facility] [address] [place] [address] May, [facility] [address] [place] [id number] May, Encounter for Medicare annual wellness exam Z00.00 ; Advanced directives, counseling/discussion Z71.89 ; Screening for osteoporosis Z13.820 ; Bilateral hearing loss, unspecified hearing loss type H91.93 ; Intellectual disability F79 ; COPD (chronic obstructive pulmonary disease) J44.9 ; Postmenopausal Z78.0 ; Hypertension I10 ; Hyperlipidemia E78.5 ; Constipation K59.00 and Angina pectoris I20.9 [facility] [address] [place] [address] May, [facility] [address] [place] [address] May, Left-sided chest wall pain R07.89 and Chest wall contusion, left, initial encounter S20.212A [facility] [address] [place] [address] May, Dog bite, subsequent encounter W54.0XXD [facility] [address] [place] [address] May, Open bite of right hand, initial encounter S61.451A and Bitten by dog, initial encounter W54.0XXA [facility] [address] [place] [address] May, [facility] [address] [place] [address] May, [facility] [address] [place] [address] Apr, Chest congestion R09.89 ; COPD exacerbation J44.1 and Dermatitis L30.9 [facility] [address] [place] [address] Apr, Secondary infection of skin L08.89 and Keratotic lesion L57.0 [facility] [address] [place] [address] Mar, Hypertension I10 ; Bronchitis J40 and Cough R05 [facility] [address] [place] [address] Feb, [facility] [address], [address] [place] [address] Feb, Skin tag L91.[address] [place] [address] Dec, Dysuria R30.0 and Vaginitis N76.0 [facility] [address] [place] [address] Dec, Constipation K59.00 ; Hypertension I10 ; Bronchitis J40 ; Post-tussive emesis R11.10 and Cough R05 [facility] [address] [place] [address] Dec, [facility] [address] [place] [address] Nov, Constipation K59.00 and Bronchitis J40 [facility] [address] [place] [address] Nov, [facility] [address] [place] [address] October, Dysuria R30.[address] [place], [place] [address] October, Urinary frequency R35.0 and UTI (urinary tract infection) N39.0 [facility] [address] [place] [address] Sep, Intellectual disability F79 ; COPD (chronic obstructive pulmonary disease ) J44.9 ; Postmenopausal Z78.0 ; Hypertension I10 and Hyperlipidemia E78.5 [facility] [address] [place] [address] Aug, Pain with urination R30.9 ; Wrist pain, left M25.532 and Pain in scapula M89.8X1 [address], [address] [place] [address] Jul, Pain with urination R30.9 and Vaginitis N76.[address], [address] [place] [address] Jul, Screening for breast cancer Z12.[address], [facility] [address] [place] [address] Jul, Acute upper respiratory infection, unspecified J06.9 and Other viral agents as the cause of diseases classified elsewhere B97.[address] [place] [address] Jun, Cellulitis L03.[address] [place] [address] Jun, Gastritis 535.50 ; URI (upper respiratory infection) J06.9 and Ingrown toenail L60.[address] [place], [place] [id number] Apr, Gastritis 535.50 and Oral lesion K13.[address], [facility] [address] [place], [place] [address] Mar, Dysuria R30.0 and Pain of right scapula M89.8X1 [address], [address] [place] [address] Mar, [address], [address] [place] [address] Mar, [address], [address] [place] [address] Feb, Right knee pain 719.[address], [facility] [address] [place], [place] [address] Feb, [address], [facility] [address] [place] [address] Feb, Right knee pain 719.[address], [facility] [address] [place], [place] [address] Jan, Allergic rhinitis 477.9 and Cough 786.[address] [place] [address] Jan, [address] [place] [address] Jan, Insect bites 919.[address], [facility] [address] [place] [address] Jan, Fatigue 780.79 ; Gastritis 535.50 and Wound abscess 879.[address], [facility] [address] [place] [address] Dec, [address], [address] [place] [address] Nov, Fatigue 780.79 ; Weakness generalized 780.79 and Gastritis 535.50 [facility] [address] [place] [address] Nov, [facility] [address] [place] [address] October, [facility] [address] [place] [address] October, [facility] [address] [place] [address] October, [facility] [address] [place] [address] October, [facility] [address] [place] [address] Sep, [facility] [address] [place] [address] Sep, [facility] [address] [place] [address] Sep, [facility] [address] [place] [address] Aug, [facility] [address] [place] [address] Aug, [facility] [address] [place] [address] Jul, [facility] [address] [place] [address] Jul, [facility] [address] [place] [address] May, [facility] [address] [place] [address] May, [facility] [address] [place] [address] Apr, [facility] [address] [place] [address] Mar, [facility] [address] [place] [address] Mar, [facility] [address] [place] [address] Feb, [facility] [address] [place] [id number] Jan, [facility] [address] [place] [address] Jan, [facility] [address] [place] [address] Nov, [facility] [address] [place] [address] October, [facility] [address] [place] [address] October, [facility] [address] [place] [address] Sep, [facility] [address] [place] [address] Aug, [facility] [address] [place] [address] Jul, [facility] [address] [place] [address] Jun, [facility] [address] [place] [address] May, [facility] [address] [place] [address] Mar, [facility] [address] [place] [address] Mar, [facility] [address] [place] [address] Jan, [facility] [address] [place] [address] Dec, [facility] [address] [place] [address] Nov, [facility] [address] [place] [address] October, [facility] [address] [place] [address] Aug, [facility] [address] [place] [address] Jul, [facility] [address] [place] [address] Jun, [facility] [address] [place] [address] Jun, [facility] [address] [place] [address] Jun, [facility] [address] [place] [address] May, [facility] [address] [place] [address] Apr, [facility] [address] [place] [id number] Mar, [facility] [address] [place] [address] Mar, [facility] [address] [place] [address] Mar, IMMUNIZATIONS No Known Immunizations SOCIAL HISTORY Never Assessed REASON FOR VISIT ccm call need to change meds PLAN OF CARE VITAL SIGNS MEDICATIONS Unknown [...]
--- OUTSIDE RECORDS SUMMARY | 2018-02-04 20:15 | XMS REPORT ---
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 Role Phone [place], Rogelio Unavailable PROBLEMS Type Condition ICD9-CM Code ZCE28-JK Code Onset Dates Condition Status SNOMED Code Problem Nocturnal hypoxia G47.34 Active 383612066 Problem Acute sinusitis, unspecified J01.90 Active 46519912 Problem Chronic sinusitis, unspecified J32.9 Active 859131592 Problem Unspecified constipation K59.00 Active 68517068 Problem Episode of recurrent major depressive disorder, unspecified depression episode severity F33.9 Active 375223768 Problem Arthralgia 719.40 Active 48196419 Problem Obstructive sleep apnea syndrome G47.33 Active 99024941 Problem Gastritis without bleeding, unspecified chronicity, unspecified gastritis type K29.70 Active 5315278 Problem Myalgia 729.1 Active 88229402 Problem BMI 35.0-35.9,adult Z68.35 Active 735858273 Problem Hypertension I10 Active 59938526 Problem Postmenopausal Z78.0 Active 25122671 Problem Hyperlipidemia E78.5 Active 89905203 Problem COPD (chronic obstructive pulmonary disease) J44.9 Active 85397546 Problem Angina pectoris I20.9 Active 255424833 Problem Constipation K59.00 Active 00380254 Problem Intellectual disability F79 Active 52230791 Problem COPD (chronic obstructive pulmonary disease) with acute bronchitis J44.0 Active 947824510715672 Problem COPD exacerbation J44.1 Active 150473207 Problem Closed fracture of one rib of right side with routine healing, subsequent encounter S22.31XD Active 17533164 ALLERGIES Substance Reaction Event Type Date Status Zithromax Unknown Drug Allergy Jan, Active ENCOUNTERS Encounter Location Date Diagnosis [facility] [address] [place], [place] [id number] Aug, [facility] [address] [place], [place] [id number] Apr, [facility] [address] [place] [id number] Jan, [facility] [address] [place] [id number] Jan, [facility] [address] [place] [id number] Jan, COPD (chronic obstructive pulmonary disease) J44.9 ; Hypertension I10 and Arthralgia, unspecified joint M25.50 [facility] [address] [place] [id number] Jan, Constipation K59.00 [facility] [address] [place] [id number] Dec, Acute cystitis without hematuria N30.00 ; Abdominal cramping R10.9 and Unspecified constipation K59.00 [facility] [address] [place], [place] [id number] Dec, [facility] [address] [place] [id number] Dec, [facility] [address] [place] [id number] Dec, [facility] [address] [place] [id number] Dec, Pain with urination R30.9 [facility] [address] [place] [id number] Dec, [facility] [address] [place] [id number] Dec, [facility] [address] [place], [place] [id number] Nov, COPD (chronic obstructive pulmonary disease) J44.9 ; Hypertension I10 and Vaginal discharge N89.8 [facility] [address] [place] [id number] Nov, [facility] [address] [place] [id number] Nov, COPD (chronic obstructive pulmonary disease) J44.9 ; Angina pectoris I20.9 ; Nocturnal hypoxia G47.34 and Hypertension I10 [facility] [address] [place] [id number] Nov, [facility] [address] [place] [id number] October, [facility] [address] [place] [id number] October, [facility] [address] [place] [id number] October, [facility] [address] [place] [id number] October, Hypertension I10 ; COPD (chronic obstructive pulmonary disease) J44.9 ; Hyperlipidemia E78.5 ; COPD exacerbation J44.1 ; Episode of recurrent major depressive disorder, unspecified depression episode severity F33.9 and BMI 35.0- 35.9,adult Z68.35 [facility] [address] [place] [id number] October, [facility] [address] [place] [id number] Sep, [facility] [address] [place] [id number] Sep, [facility] [address] [place] [id number] Sep, Hypertension I10 ; COPD (chronic obstructive pulmonary disease) J44.9 ; Nocturnal hypoxia G47.34 and Obstructive sleep apnea syndrome G47.33 [facility] [address] [place] [id number] Sep, [facility] [address] [place] [id number] Sep, [facility] [address] [place] [id number] Aug, [facility] [address] [place] [id number] Aug, [facility] [address] [place] [id number] Aug, Encounter for screening mammogram for malignant neoplasm of breast Z12.31 ; Tinnitus of right ear H93.11 and Obstructive sleep apnea G47.33 [facility] [address] [place] [id number] Aug, [facility] [address] [place] [id number] Aug, Encounter for Medicare annual wellness exam Z00.00 and Advanced directives , counseling/discussion Z71.89 [facility] [address] [place] [id number] Jul, [facility] [address] [place] [id number] Jul, [facility] [address] [place] [id number] Jul, [facility] [address] [place] [id number] Jul, Right sided abdominal pain R10.9 ; Hypertension I10 ; COPD (chronic obstructive pulmonary disease) J44.9 and Hyperlipidemia E78.5 [facility] [address] [place] [id number] Jul, [facility] [address] [place] [id number] Jul, [facility] [address] [place], [place] [id number] Jul, Acute gastritis without hemorrhage, unspecified gastritis type K29.00 ; Diarrhea, unspecified type R19.7 ; Hypertension I10 ; COPD (chronic obstructive pulmonary disease) J44.9 and Hyperlipidemia E78.5 [facility] [address] [place] [id number] Jul, [facility] [address] [place] [id number] Jun, Acute lower respiratory infection J22 ; Other fatigue R53.83 and History of influenza Z87.09 [facility] [address] [place] [id number] Jun, [facility] [address] [place] [id number] Jun, [facility] [address] [place] [id number] Jun, Acute lower respiratory infection J22 ; Other fatigue R53.83 and History of influenza Z87.09 [facility] [address] [place] [id number] Jun, [facility] [address] [place] [id number] Jun, [facility] [address] [place] [id number] Jun, [facility] [address] [place] [id number] Jun, [facility] [address] [place] [id number] Jun, [facility] [address] [place] [id number] Jun, Acute pain of left shoulder M25.512 [facility] [address] [place] [id number] Jun, Acute pain of left shoulder M25.512 ; Gastritis without bleeding, unspecified chronicity, unspecified gastritis type K29.70 ; Hypertension I10 ; COPD (chronic obstructive pulmonary disease) J44.9 and Hyperlipidemia E78.5 [facility] [address] [place] [id number] Jun, [facility] [address] [place] [id number] Jun, [facility] [address] [place], [place] [id number] May, [facility] [address] [place] [id number] May, Acute pain of left shoulder M25.512 ; Intellectual disability F79 and Closed fracture of one rib of right side with routine healing, subsequent encounter S22.31XD [facility] [address] [place], [place] [id number] May, [facility] [address] [place] [id number] May, [facility] [address] [place] [id number] May, [facility] [address] [place], [place] [id number] May, Acute bronchitis, unspecified organism J20.9 ; Hypertension I10 ; COPD ( chronic obstructive pulmonary disease) J44.9 ; Hyperlipidemia E78.5 ; Nocturnal hypoxia G47.34 and Obstructive sleep apnea syndrome G47.33 [facility] [address] [place], [place] [id number] Apr, Pain with urination R30.9 ; Hypertension I10 ; COPD (chronic obstructive pulmonary disease) J44.9 ; Hyperlipidemia E78.5 and Acute bronchitis, unspecified organism J20.9 [facility] [address] [place], [place] [id number] Apr, Hypertension I10 [facility] [address] [place] [id number] Apr, Acute sinusitis, unspecified J01.90 [facility] [address] [place], [place] [id number] Apr, [facility] [address] [place] [id number] Mar, [facility] [address] [place], [place] [id number] Mar, Other specified bacterial agents as the cause of diseases classified elsewhere B96.89 and Acute sinusitis, unspecified J01.90 [facility] [address] [place], [place] [id number] Mar, Closed fracture of one rib of right side with routine healing, subsequent encounter S22.31XD [facility] [address] [place], [place] [id number] Mar, [facility] [address] [place], [place] [id number] Mar, COPD (chronic obstructive pulmonary disease) J44.9 ; Closed fracture of one rib of right side with routine healing, subsequent encounter S22.31XD ; Hypertension I10 ; Constipation K59.00 ; Angina pectoris I20.9 ; Depression, unspecified depression type F32.9 and Left ear pain H92.02 [facility] [address] [place], [place] [id number] Mar, Elevated glucose R73.09 [facility] [address] [place], [place] [id number] Mar, [facility] [address] [place] [id number] Mar, Left-sided chest wall pain R07.89 and Hypertension I10 [facility] [address] [place] [id number] Feb, [facility] [address] [place] [id number] Feb, Hypertension I10 [facility] [address] [place], [place] [id number] Feb, Closed fracture of one rib of right side, initial encounter S22.31XA ; Intellectual disability F79 ; COPD (chronic obstructive pulmonary disease) J44.9 ; Hyperlipidemia E78.5 and Hypertension I10 [facility] [address] [place], [place] [id number] Feb, [facility] [address] [place], [place] [id number] Feb, Dysuria R30.0 [facility] [address] [place], [place] [id number] Jan, Closed fracture of one rib of right side, initial encounter S22.31XA [facility] [address] [place], [place] [id number] Jan, [facility] [address] [place] [id number] Jan, [facility] [address] [place] [id number] Jan, Contusion of left side of back, initial encounter S20.222A [facility] [address] [place], [place] [id number] Jan, [facility] [address] [place] [id number] Dec, [facility] [address] [place] [id number] Dec, [facility] [address] [place] [id number] Dec, COPD (chronic obstructive pulmonary disease) J44.9 and Hypertension I10 [facility] [address] [place] [id number] Dec, [facility] [address] [place] [id number] Dec, [facility] [address] [place] [id number] Dec, Skin irritation R23.8 [facility] [address] [place] [id number] Dec, [facility] [address] [place] [id number] Dec, [facility] [address] [place] [id number] Dec, [facility] [address] [place] [id number] Dec, [facility] [address] [place] [id number] October, Dysuria R30.0 and Pain of left calf M79.662 [facility] [address] [place] [id number] October, Pain of right great toe M79.674 and Overgrown toenails L60.2 [facility] [address] [place], [place] [id number] Sep, [facility] [address] [place] [id number] Sep, [facility] [address] [place] [id number] Sep, Pain with urination R30.9 ; Abdominal pain, unspecified location R10.9 and Loose stools R19.5 [facility] [address] [place] [id number] Sep, Hypertension I10 [facility] [address] [place] [id number] Sep, [facility] [address] [place] [id number] Sep, Acute cystitis with hematuria N30.01 [facility] [address] [place], [place] [id number] Sep, [facility] [address] [place] [id number] Sep, Urinary frequency R35.0 [facility] [address] [place] [id number] Aug, [facility] [address] [place] [id number] Aug, Screening for breast cancer Z12.39 [facility] [address] [place], [place] [id number] Aug, [facility] [address] [place] [id number] Aug, [facility] [address] [place] [id number] Aug, [facility] [address] [place] [id number] Aug, [facility] [address] [place] [id number] Aug, [facility] [address] [place] [id number] Aug, [facility] [address] [place] [id number] Aug, [facility] [address] [place] [id number] Aug, [facility] [address] [place] [id number] Jul, Dysuria R30.0 [facility] [address] [place] [id number] Jul, Chest wall pain R07.89 and Myofascial pain M79.1 [facility] [address] [place], [place] [id number] Jul, [facility] [address] [place], [place] [id number] Jul, Depression, unspecified depression type F32.9 ; Chronic obstructive pulmonary disease, unspecified COPD type J44.9 ; Hypertension I10 ; Angina pectoris I20.9 and Costochondritis M94.0 [facility] [address] [place], [place] [id number] Jun, Acute non-recurrent maxillary sinusitis J01.00 [facility] [address] [place], [place] [id number] Jun, [facility] [address] [place] [id number] Jun, [facility] [address] [place] [id number] Jun, [facility] [address] [place] [id number] Jun, [facility] [address] [place] [id number] Jun, [facility] [address] [place] [id number] Jun, Left-sided chest wall pain R07.89 and Cough due to bronchospasm J98.01 [facility] [address] [place], [place] [id number] Jun, [facility] [address] [place] [id number] May, [facility] [address] [place], [place] [id number] May, Left-sided chest wall pain R07.89 [facility] [address] [place] [id number] May, Left-sided chest wall pain R07.89 and Cough due to bronchospasm J98.01 [facility] [address] [place] [id number] May, [facility] [address] [facility] [address] [place], [place] [id number] May, Encounter for Medicare annual wellness exam Z00.00 ; Advanced directives, counseling/discussion Z71.89 ; Screening for osteoporosis Z13.820 ; Bilateral hearing loss, unspecified hearing loss type H91.93 ; Intellectual disability F79 ; COPD (chronic obstructive pulmonary disease) J44.9 ; Postmenopausal Z78.0 ; Hypertension I10 ; Hyperlipidemia E78.5 ; Constipation K59.00 and Angina pectoris I20.9 [facility] [address] [place] [id number] May, [facility] [address] [place] [id number] May, Left-sided chest wall pain R07.89 and Chest wall contusion, left, initial encounter S20.212A [address], [facility] [address] [place], [place] [id number] May, Dog bite, subsequent encounter W54.0XXD [address], [address] [place], [place] [id number] May, Open bite of right hand, initial encounter S61.451A and Bitten by dog, initial encounter W54.0XXA [address], [address] [place], [place] [id number] May, [facility] [address] [place] [id number] May, [facility] [address] [place] [id number] Apr, Chest congestion R09.89 ; COPD exacerbation J44.1 and Dermatitis L30.9 [facility] [address] [place], [place] [id number] Apr, Secondary infection of skin L08.89 and Keratotic lesion L57.0 [facility] [address] [place], [place] [id number] Mar, Hypertension I10 ; Bronchitis J40 and Cough R05 [facility] [address] [place] [id number] Feb, [facility] [address] [place] [id number] Feb, Skin tag L91.8 [facility] [address] [place] [id number] Dec, Dysuria R30.0 and Vaginitis N76.0 [facility] [address] [place], [place] [id number] Dec, Constipation K59.00 ; Hypertension I10 ; Bronchitis J40 ; Post-tussive emesis R11.10 and Cough R05 [facility] [address] [place] [id number] Dec, [facility] [address] [place] [id number] Nov, Constipation K59.00 and Bronchitis J40 [facility] [address] [place] [id number] Nov, [facility] [address] [place] [id number] October, Dysuria R30.0 [facility] [address] [place] [id number] October, Urinary frequency R35.0 and UTI (urinary tract infection) N39.0 [facility] [address] [place], [place] [id number] Sep, Intellectual disability F79 ; COPD (chronic obstructive pulmonary disease ) J44.9 ; Postmenopausal Z78.0 ; Hypertension I10 and Hyperlipidemia E78.5 [facility] [address] [place], [place] [id number] Aug, Pain with urination R30.9 ; Wrist pain, left M25.532 and Pain in scapula M89.8X1 [facility] [address] [place], [place] [id number] Jul, Pain with urination R30.9 and Vaginitis N76.0 [facility] [address] [place], [place] [id number] Jul, Screening for breast cancer Z12.[address], [address] [place], [place] [id number] Jul, Acute upper respiratory infection, unspecified J06.9 and Other viral agents as the cause of diseases classified elsewhere B97.[address] [place], [place] [id number] Jun, Cellulitis L03.[address] [place], [place] [id number] Jun, Gastritis 535.50 ; URI (upper respiratory infection) J06.9 and Ingrown toenail L60.[address] [place], [place] [id number] Apr, Gastritis 535.50 and Oral lesion K13.[address], [facility] [address] [place], [place] [id number] Mar, Dysuria R30.0 and Pain of right scapula M89.8X1 [address], [facility] [address] [place] [id number] Mar, [address] [place] [id number] Mar, [address], [address] [place], [place] [id number] Feb, Right knee pain 719.[address] [place] [id number] Feb, [address], [facility] [address] [place] [id number] Feb, Right knee pain 719.[address] [place], [place] [id number] Jan, Allergic rhinitis 477.9 and Cough 786.[address] [place] [id number] Jan, [address] [place] [id number] Jan, Insect bites 919.[address], [facility] [address] [place] [address] Jan, Fatigue 780.79 ; Gastritis 535.50 and Wound abscess 879.[address], [address] [place], [place] [id number] Dec, [address], [address] [place] [id number] Nov, Fatigue 780.79 ; Weakness generalized 780.79 and Gastritis 535.[address] [place], [place] [id number] Nov, [facility] [address] [place] [id number] October, [facility] [address] [place] [id number] October, [facility] [address] [place] [id number] October, [facility] [address] [place] [id number] October, [facility] [address] [place] [id number] Sep, [facility] [address] [place] [id number] Sep, [facility] [address] [place] [id number] Sep, [facility] [address] [place] [id number] Aug, [facility] [address] [place] [id number] Aug, [facility] [address] [place] [id number] Jul, [facility] [address] [place] [id number] Jul, [facility] [address] [place] [id number] May, [facility] [address] [place] [id number] May, [facility] [address] [place], [place] [id number] Apr, [facility] [address] [place] [id number] Mar, [facility] [address] [place] [id number] Mar, [facility] [address] [place] [id number] Feb, [facility] [address] [place] [id number] Jan, [facility] [address] [place] [id number] Jan, [facility] [address] [place] [id number] Nov, [facility] [address] [place] [id number] October, [facility] [address] [place] [id number] October, [facility] [address] [place] [id number] Sep, [facility] [address] [place] [id number] Aug, [facility] [address] [place] [id number] Jul, [facility] [address] [place] [id number] Jun, [facility] [address] [place] [id number] May, [facility] [address] [place] [id number] Mar, [facility] [address] [place] [id number] Mar, [facility] [address] [place] [id number] Jan, [facility] [address] [place] [id number] Dec, [facility] [address] [place] [id number] Nov, [facility] [address] [place] [id number] October, [facility] [address] [place] [id number] Aug, [facility] [address] [place] [id number] Jul, [facility] [address] [place] [id number] Jun, [facility] [address] [place] [id number] Jun, [facility] [address] [place] [id number] Jun, [facility] [address] [place] [id number] May, [facility] [address] [place] [id number] Apr, [facility] [address] [place] [id number] Mar, [facility] [address] [place] [id number] Mar, [facility] [address] [place] [id number] Mar, IMMUNIZATIONS No Known Immunizations SOCIAL HISTORY Never Assessed REASON FOR VISIT 2 month ck PLAN OF CARE Activity Details Follow Up 3 Months Reason: Pending Test * CBC w/diff Pending Test * Chem-14 VITAL SIGNS Weight 207.4 lbs 2018-01-28 Heart Rate 66 /min 2018-01-28 Height 64 in 2018-01-28 Oximetry 97 % 2018-01-28 BMI 35.60 kg/m2 2018-01-28 Blood pressure systolic 126 mm Hg 2018-01-28 Blood pressure diastolic 55 mm Hg 2018-01-28 MEDICATIONS Medication Instructions Dosage Frequency Start Date End Date Duration Status Trazodone HCl 100 MG Orally Once a day 1.5 tablet at bedtime 24h Active Claritin 10 TAKE ONE TABLET BY MOUTH DAILY 90 Not-Taking Meloxicam 7.5 MG Orally BID 1 tablet 12h Active Nitrostat 0.4 MG Sublingual prn as directed Jan, Active Triamcinolone Acetonide 0.1 APPLY TO AFFECTED AREA(S) TWO TIMES A DAY 30 Not-Taking Aspirin Adult Low Dose 81 MG Orally Once a day 1-2 tablet 24h Active Ventolin HFA 90 INHALE ONE TO TWO PUFFS BY MOUTH EVERY 4 HOURS NEEDED FOR SHORTNESS OF BREATH FOR COUGH Active Celexa 40 MG Orally Once a day 0.5 tablet 24h Not-Taking MiraLax - as directed Active Linzess 145 MCG PO QD 1 capsule 24h 30 days Active Benadryl Allergy 25 MG 1 tablet at noon and 2 HS Active Symbicort 160-4.5 INHALE TWO PUFFS BY MOUTH EVERY 12 HOURS Active Nexium 40 TAKE ONE CAPSULE BY MOUTH DAILY 30 Active Lisinopril-Hydrochlorothiazide 20-12.5 TAKE TWO TABLETS BY MOUTH TWICE A DAY Active Albuterol Sulfate (2.5 MG/3ML) 0.083% Inhalation every 4 hrs prn 3 ml Jun, Not-Taking Loratadine 10 MG Orally Once a day 1 tablet 24h 30 day(s) Active Alendronate Sodium 5 MG Orally Once a day 1 tablet 24h May, 30 day(s) Active Multivitamin Adult - Active Metoprolol Tartrate 50 TAKE ONE TABLET BY MOUTH TWICE A DAY 30 Active Zantac 150 MG Orally BID 1 tablet 12h Jul, 15 days Not-Taking Ventolin HFA 108 (90 Base) MCG/ACT Inhalation every 4 hrs 2 puffs as needed 4h Not-Taking Tessalon Perles 100 MG Orally Three times a day 2 capsules as needed 8h Not-Taking Flonase 50 USE ONE SPRAY IN EACH NOSTRIL TWO TIMES A DAY Active RESULTS No Results PROCEDURES No Known [...]
--- OUTSIDE RECORDS SUMMARY | 2018-02-04 20:16 | XMS REPORT ---
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 [employer] Consultant Name Role Phone Dennard, Rogelio Unavailable PROBLEMS Type Condition ICD9-CM Code HXI40-[id number] Code Onset Dates Condition Status SNOMED Code Problem COPD (chronic obstructive pulmonary disease) with acute bronchitis J44.0 Active [id number] Problem Nocturnal hypoxia G47.34 Active 467445929 Problem Closed fracture of one rib of right side with routine healing, subsequent encounter S22.31XD Active 56649203 Problem Unspecified constipation K59.00 Active 76822313 Problem BMI 35.0-35.9,adult Z68.35 Active 652610413 Problem Acute sinusitis, unspecified J01.90 Active 68326177 Problem Chronic sinusitis, unspecified J32.9 Active 830875881 Problem Obstructive sleep apnea syndrome G47.33 Active 75779824 Problem Gastritis without bleeding, unspecified chronicity, unspecified gastritis type K29.70 Active 9094737 Problem Hyperlipidemia E78.5 Active 30177154 Problem COPD (chronic obstructive pulmonary disease) J44.9 Active 56205503 Problem Episode of recurrent major depressive disorder, unspecified depression episode severity F33.9 Active 025955326 Problem Intellectual disability F79 Active 94484348 Problem COPD exacerbation J44.1 Active 770798322 Problem Hypertension I10 Active 53716188 Problem Angina pectoris I20.9 Active 074770203 Problem Postmenopausal Z78.0 Active 26957188 Problem Constipation K59.00 Active 79488027 ALLERGIES No Information ENCOUNTERS Encounter Location Date Diagnosis [facility] [address], [facility] [address] [place], [place] [id number] Aug, [facility] [address] [facility] [address] [place] [id number] Jan, COPD (chronic obstructive pulmonary disease) J44.9 and Hypertension I10 [facility] [address], [facility] [address] [place] [id number] Jan, Constipation K59.00 [facility] [address] [place] [id number] Dec, Acute cystitis without hematuria N30.00 ; Abdominal cramping R10.9 and Unspecified constipation K59.00 [facility] [address] [place], [place] [id number] Dec, [facility] [address] [place] [id number] Dec, [facility] [address] [place] [id number] Dec, [facility] [address] [place] [id number] Dec, Pain with urination R30.9 [facility] [address] [place] [id number] Dec, [facility] [address] [place] [id number] Dec, [facility] [address] [place] [id number] Nov, COPD (chronic obstructive pulmonary disease) J44.9 ; Hypertension I10 and Vaginal discharge N89.8 [facility] [address] [place] [id number] Nov, [facility] [address] [place], [place] [id number] Nov, COPD (chronic obstructive pulmonary disease) J44.9 ; Angina pectoris I20.9 ; Nocturnal hypoxia G47.34 and Hypertension I10 [facility] [address] [place] [id number] Nov, [facility] [address] [place] [id number] October, [facility] [address] [place] [id number] October, [facility] [address] [place] [id number] October, [facility] [address] [place] [id number] October, Hypertension I10 ; COPD (chronic obstructive pulmonary disease) J44.9 ; Hyperlipidemia E78.5 ; COPD exacerbation J44.1 ; Episode of recurrent major depressive disorder, unspecified depression episode severity F33.9 and BMI 35.0- 35.9,adult Z68.35 [facility] [address] [place], [place] [id number] October, [facility] [address] [employer] [place] [id number] Sep, [facility] [address] [place] [id number] Sep, [facility] [address] [place] [id number] Sep, Hypertension I10 ; COPD (chronic obstructive pulmonary disease) J44.9 ; Nocturnal hypoxia G47.34 and Obstructive sleep apnea syndrome G47.33 [facility] [address] [place], [place] [id number] Sep, [facility] [address] [place] [address] Sep, [facility] [address] [place], [place] [id number] Aug, [facility] [address] [place], [place] [id number] Aug, [facility] [address] [place] [id number] Aug, Encounter for screening mammogram for malignant neoplasm of breast Z12.31 ; Tinnitus of right ear H93.11 and Obstructive sleep apnea G47.33 [facility] [address] [place] [id number] Aug, [facility] [address] [place] [id number] Aug, Encounter for Medicare annual wellness exam Z00.00 and Advanced directives , counseling/discussion Z71.89 [facility] [address] [place] [id number] Jul, [facility] [address] [place] [id number] Jul, [facility] [address] [place] [id number] Jul, [facility] [address] [place] [id number] Jul, Right sided abdominal pain R10.9 ; Hypertension I10 ; COPD (chronic obstructive pulmonary disease) J44.9 and Hyperlipidemia E78.5 [facility] [address] [place] [id number] Jul, [facility] [address] [place] [id number] Jul, [facility] [address] [place] [address] Jul, Acute gastritis without hemorrhage, unspecified gastritis type K29.00 ; Diarrhea, unspecified type R19.7 ; Hypertension I10 ; COPD (chronic obstructive pulmonary disease) J44.9 and Hyperlipidemia E78.5 [facility] [address] [place] [id number] Jul, [facility] [address] [place] [id number] Jun, Acute lower respiratory infection J22 ; Other fatigue R53.83 and History of influenza Z87.09 [facility] [address] [place], [place] [id number] Jun, [facility] [address] [place] [id number] Jun, [facility] [address] [place] [id number] Jun, Acute lower respiratory infection J22 ; Other fatigue R53.83 and History of influenza Z87.09 [facility] [address] [place], [place] [address] Jun, [facility] [address] [place] [address] Jun, [facility] [address] [place] [id number] Jun, [facility] [address] [place] [id number] Jun, [facility] [address] [place] [id number] Jun, [facility] [address] [place] [id number] Jun, Acute pain of left shoulder M25.512 [facility] [address] [place] [id number] Jun, Acute pain of left shoulder M25.512 ; Gastritis without bleeding, unspecified chronicity, unspecified gastritis type K29.70 ; Hypertension I10 ; COPD (chronic obstructive pulmonary disease) J44.9 and Hyperlipidemia E78.5 [facility] [address] [place] [id number] Jun, [facility] [address] [place] [id number] Jun, [facility] [address] [place] [id number] May, [facility] [address] [place], [place] [id number] May, Acute pain of left shoulder M25.512 ; Intellectual disability F79 and Closed fracture of one rib of right side with routine healing, subsequent encounter S22.31XD [facility] [address] [place] [id number] May, [facility] [address] [place] [address] May, [facility] [address] [place] [id number] May, [facility] [address] [place] [id number] May, Acute bronchitis, unspecified organism J20.9 ; Hypertension I10 ; COPD ( chronic obstructive pulmonary disease) J44.9 ; Hyperlipidemia E78.5 ; Nocturnal hypoxia G47.34 and Obstructive sleep apnea syndrome G47.33 [facility] [address] [place] [id number] Apr, Pain with urination R30.9 ; Hypertension I10 ; COPD (chronic obstructive pulmonary disease) J44.9 ; Hyperlipidemia E78.5 and Acute bronchitis, unspecified organism J20.9 [facility] [address] [place] [id number] Apr, Hypertension I10 [facility] [address] [place] [id number] Apr, Acute sinusitis, unspecified J01.90 [facility] [address] [place] [address] Apr, [facility] [address] [place] [id number] Mar, [facility] [address] [place] [id number] Mar, Other specified bacterial agents as the cause of diseases classified elsewhere B96.89 and Acute sinusitis, unspecified J01.90 [facility] [address] [place] [id number] Mar, Closed fracture of one rib of right side with routine healing, subsequent encounter S22.31XD [facility] [address] [place] [id number] Mar, [facility] [address] [place] [id number] Mar, COPD (chronic obstructive pulmonary disease) J44.9 ; Closed fracture of one rib of right side with routine healing, subsequent encounter S22.31XD ; Hypertension I10 ; Constipation K59.00 ; Angina pectoris I20.9 ; Depression, unspecified depression type F32.9 and Left ear pain H92.02 [facility] [address] [place], [place] [id number] Mar, Elevated glucose R73.09 [facility] [address] [place] [id number] Mar, [facility] [address] [place] [id number] Mar, Left-sided chest wall pain R07.89 and Hypertension I10 [facility] [address] [place] [id number] Feb, [facility] [address] [place] [id number] Feb, Hypertension I10 [facility] [address] [place] [id number] Feb, Closed fracture of one rib of right side, initial encounter S22.31XA ; Intellectual disability F79 ; COPD (chronic obstructive pulmonary disease) J44.9 ; Hyperlipidemia E78.5 and Hypertension I10 [facility] [address] [place] [id number] Feb, [facility] [address] [place] [id number] Feb, Dysuria R30.0 [facility] [address] [place] [id number] Jan, Closed fracture of one rib of right side, initial encounter S22.31XA [facility] [address] [place] [id number] Jan, [facility] [address] [place] [id number] Jan, [facility] [address] [place] [id number] Jan, Contusion of left side of back, initial encounter S20.222A [facility] [address] [place] [id number] Jan, [facility] [address] [place] [id number] Dec, [facility] [address] [place] [id number] Dec, [facility] [address] [place] [id number] Dec, COPD (chronic obstructive pulmonary disease) J44.9 and Hypertension I10 [facility] [address] [place] [id number] Dec, [facility] [address] [place] [id number] Dec, [facility] [address] [place] [address] Dec, Skin irritation R23.8 [facility] [address] [place] [id number] Dec, [facility] [address] [place] [address] Dec, [facility] [address] [place] [address] Dec, [facility] [address] [place] [address] Dec, [facility] [address] [place] [id number] October, Dysuria R30.0 and Pain of left calf M79.662 [facility] [address] [place] [address] October, Pain of right great toe M79.674 and Overgrown toenails L60.2 [facility] [address] [place] [address] Sep, [facility] [address] [place] [id number] Sep, [facility] [address] [place] [address] Sep, Pain with urination R30.9 ; Abdominal pain, unspecified location R10.9 and Loose stools R19.5 [facility] [address] [place] [id number] Sep, Hypertension I10 [facility] [address] [place] [id number] Sep, [facility] [address] [place] [id number] Sep, Acute cystitis with hematuria N30.01 [facility] [address] [place] [id number] Sep, [facility] [address] [place] [id number] Sep, Urinary frequency R35.0 [facility] [address] [place] [id number] Aug, [facility] [address] [place] [id number] Aug, Screening for breast cancer Z12.39 [facility] [address] [place] [id number] Aug, [facility] [address] [place] [id number] Aug, [facility] [address] [place] [id number] Aug, [facility] [address] [place] [address] Aug, [facility] [address] [place] [id number] Aug, [facility] [address] [place] [id number] Aug, [facility] [address] [place] [id number] Aug, [facility] [address] [place] [address] Aug, [facility] [address] [place] [id number] Jul, Dysuria R30.0 [facility] [address] [place] [id number] Jul, Chest wall pain R07.89 and Myofascial pain M79.1 [facility] [address] [place] [id number] Jul, [facility] [address] [place] [id number] Jul, Depression, unspecified depression type F32.9 ; Chronic obstructive pulmonary disease, unspecified COPD type J44.9 ; Hypertension I10 ; Angina pectoris I20.9 and Costochondritis M94.0 [facility] [address] [place] [id number] Jun, Acute non-recurrent maxillary sinusitis J01.00 [facility] [address] [place] [id number] Jun, [facility] [address] [place] [id number] Jun, [facility] [address] [place] [address] Jun, [facility] [address] [place] [id number] Jun, [facility] [address] [place] [id number] Jun, [facility] [address] [place] [id number] Jun, Left-sided chest wall pain R07.89 and Cough due to bronchospasm J98.01 [facility] [address] [place] [id number] Jun, [facility] [address] [place] [id number] May, [facility] [address] [place] [id number] May, Left-sided chest wall pain R07.89 [facility] [address] [place] [id number] May, Left-sided chest wall pain R07.89 and Cough due to bronchospasm J98.[address], [facility] [address] [place] [id number] May, [address] [place] [id number] May, Encounter for Medicare annual wellness exam Z00.00 ; Advanced directives, counseling/discussion Z71.89 ; Screening for osteoporosis Z13.820 ; Bilateral hearing loss, unspecified hearing loss type H91.93 ; Intellectual disability F79 ; COPD (chronic obstructive pulmonary disease) J44.9 ; Postmenopausal Z78.0 ; Hypertension I10 ; Hyperlipidemia E78.5 ; Constipation K59.00 and Angina pectoris I20.[address], [facility] [address] [place] [id number] May, [address] [id number] May, Left-sided chest wall pain R07.89 and Chest wall contusion, left, initial encounter S20.212A [address] [place], [place] [id number] May, Dog bite, subsequent encounter W54.0XXD [address] [place], [place] [id number] May, Open bite of right hand, initial encounter S61.451A and Bitten by dog, initial encounter W54.0XXA [address], [facility] [address] [place] [id number] May, [address], [facility] [address] [place] [id number] May, [address], [address] [place] [id number] Apr, Chest congestion R09.89 ; COPD exacerbation J44.1 and Dermatitis L30.[address], [facility] [address] [place], [place] [id number] Apr, Secondary infection of skin L08.89 and Keratotic lesion L57.[address], [facility] [address] [place] [id number] Mar, Hypertension I10 ; Bronchitis J40 and Cough R05 [address], [facility] [address] [place] [id number] Feb, [address], [facility] [address] [place] [id number] Feb, Skin tag L91.8 [facility] [address] [place] [id number] Dec, Dysuria R30.0 and Vaginitis N76.0 [facility] [address] [place], [place] [id number] Dec, Constipation K59.00 ; Hypertension I10 ; Bronchitis J40 ; Post-tussive emesis R11.10 and Cough R05 [facility] [address], [address] [place], [place] [id number] Dec, [facility] [address] [place] [id number] Nov, Constipation K59.00 and Bronchitis J40 [facility] [address] [place] [id number] Nov, [facility] [address] [place] [id number] October, Dysuria R30.[address] [place] [id number] October, Urinary frequency R35.0 and UTI (urinary tract infection) N39.0 [facility] [address] [place] [id number] Sep, Intellectual disability F79 ; COPD (chronic obstructive pulmonary disease ) J44.9 ; Postmenopausal Z78.0 ; Hypertension I10 and Hyperlipidemia E78.5 [facility] [address] [place], [place] [id number] Aug, Pain with urination R30.9 ; Wrist pain, left M25.532 and Pain in scapula M89.8X1 [address], [address] [place] [id number] Jul, Pain with urination R30.9 and Vaginitis N76.0 [facility] [address] [place], [place] [id number] Jul, Screening for breast cancer Z12.[address], [address] [place], [place] [id number] Jul, Acute upper respiratory infection, unspecified J06.9 and Other viral agents as the cause of diseases classified elsewhere B97.89 [facility] [address] [place], [place] [id number] Jun, Cellulitis L03.[address] [place] [id number] Jun, Gastritis 535.50 ; URI (upper respiratory infection) J06.9 and Ingrown toenail L60.0 [facility] [address] [place] [id number] Apr, Gastritis 535.50 and Oral lesion K13.70 [facility] [address] [place], [place] [id number] Mar, Dysuria R30.0 and Pain of right scapula M89.8X1 [facility] [address] [place] [id number] Mar, [facility] [address] [place] [id number] Mar, [facility] [address] [place] [id number] Feb, Right knee pain 719.46 [facility] [address] [place] [address] Feb, [facility] [address] [place] [id number] Feb, Right knee pain 719.46 [facility] [address] [place] [id number] Jan, Allergic rhinitis 477.9 and Cough 786.2 [facility] [address] [place] [id number] Jan, [facility] [address] [place] [address] Jan, Insect bites 919.4 [facility] [address] [place] [address] Jan, Fatigue 780.79 ; Gastritis 535.50 and Wound abscess 879.9 [facility] [address] [place] [id number] Dec, [facility] [address] [place] [address] Nov, Fatigue 780.79 ; Weakness generalized 780.79 and Gastritis 535.50 [facility] [address] [place] [id number] Nov, [facility] [address] [place] [id number] October, [facility] [address] [place] [address] October, [facility] [address] [place] [address] October, [facility] [address] [place] [id number] October, [facility] [address] [place] [id number] Sep, [facility] [address] [place] [id number] Sep, [facility] [address] [place] [id number] Sep, [facility] [address] [place] [id number] Aug, [facility] [address] [place] [address] Aug, [facility] [address] [place] [id number] Jul, [facility] [address] [place] [address] Jul, [facility] [address] [place] [id number] May, [facility] [address] [place] [id number] May, [facility] [address] [place], [place] [id number] Apr, [facility] [address] [place] [id number] Mar, [facility] [address] [place], [place] [address] Mar, [facility] [address] [place], [place] [id number] Feb, [facility] [address] [place], [place] [id number] Jan, [facility] [address] [place] [id number] Jan, [facility] [address] [place], [place] [id number] Nov, [facility] [address] [place] [id number] October, [facility] [address] [place] [id number] October, [facility] [address] [place], [place] [id number] Sep, [facility] [address] [place] [id number] Aug, [facility] [address] [place] [id number] Jul, [facility] [address] [place], [place] [id number] Jun, [facility] [address] [place] [id number] May, [facility] [address] [place] [id number] Mar, [facility] [address] [place] [id number] Mar, [facility] [address] [place] [id number] Jan, [facility] [address] [place] [id number] Dec, [facility] [address] [place] [address] Nov, [facility] [address] [place] [id number] October, [facility] [address] [place] [id number] Aug, [facility] [address] [place] [address] Jul, [facility] [address] [place] [address] Jun, [facility] [address] [place] [id number] Jun, [facility] [address] [place] [address] Jun, [facility] [address] [place] [address] May, [facility] [address] [place] [id number] Apr, [facility] [address] [place] [id number] Mar, [facility] [address] [place], [place] [id number] Mar, [facility] [address] [place] [id number] Mar, IMMUNIZATIONS No Known Immunizations SOCIAL HISTORY Never Assessed REASON FOR VISIT PLAN OF CARE VITAL SIGNS MEDICATIONS Medication Instructions Dosage Frequency Start Date End Date Duration Status Linzess 145 MCG PO QD 1 capsule 24h 30 days Active RESULTS No Results PROCEDURES [...]
--- OUTSIDE RECORDS SUMMARY | 2018-02-04 20:16 | XMS REPORT ---
Author Author Rogelio Prado Organization [facility] Address [address], [facility] [address] [place], [place] [id number] Care Team Providers Care [facility] [employer] Name Role Phone [place], Rogelio Unavailable PROBLEMS Type Condition ICD9-CM Code OEF54-JY Code Onset Dates Condition Status SNOMED Code Problem Nocturnal hypoxia G47.34 Active 460004133 Problem Acute sinusitis, unspecified J01.90 Active 44965140 Problem Chronic sinusitis, unspecified J32.9 Active 457198830 Problem Unspecified constipation K59.00 Active 87877928 Problem Episode of recurrent major depressive disorder, unspecified depression episode severity F33.9 Active 226366663 Problem Arthralgia 719.40 Active 19992932 Problem Obstructive sleep apnea syndrome G47.33 Active 13585348 Problem Gastritis without bleeding, unspecified chronicity, unspecified gastritis type K29.70 Active 8930656 Problem Myalgia 729.1 Active 31566058 Problem BMI 35.0-35.9,adult Z68.35 Active 078851106 Problem Hypertension I10 Active 64588023 Problem Postmenopausal Z78.0 Active 83073931 Problem Hyperlipidemia E78.5 Active 53310450 Problem COPD (chronic obstructive pulmonary disease) J44.9 Active 69476591 Problem Angina pectoris I20.9 Active 556149542 Problem Constipation K59.00 Active 21639978 Problem Intellectual disability F79 Active 68813151 Problem COPD (chronic obstructive pulmonary disease) with acute bronchitis J44.0 Active [id number] Problem COPD exacerbation J44.1 Active 045464082 Problem Closed fracture of one rib of right side with routine healing, subsequent encounter S22.31XD Active 55954409 ALLERGIES No Information ENCOUNTERS Encounter Location Date Diagnosis [facility] [address], [address] [place], [place] [id number] Aug, [facility] [address], [address] [place] [id number] Apr, [facility] [address], [address] [place], [place] [id number] Jan, [facility] [address] [place], [place] [id number] Jan, [facility] [address] [place] [id number] Jan, COPD (chronic obstructive pulmonary disease) J44.9 ; Hypertension I10 and Arthralgia, unspecified joint M25.50 [facility] [address] [place], [place] [id number] Jan, Constipation K59.00 [facility] [address] [place], [place] [id number] Dec, Acute cystitis without hematuria N30.00 ; Abdominal cramping R10.9 and Unspecified constipation K59.00 [facility] [address] [place] [id number] Dec, [facility] [address] [place] [address] Dec, [facility] [address] [place] [id number] Dec, [facility] [address] [place] [id number] Dec, Pain with urination R30.9 [facility] [address] [place] [id number] Dec, [facility] [address] [place] [id number] Dec, [facility] [address] [place] [id number] Nov, COPD (chronic obstructive pulmonary disease) J44.9 ; Hypertension I10 and Vaginal discharge N89.8 [facility] [address] [place] [id number] Nov, [facility] [address] [place] [id number] Nov, COPD (chronic obstructive pulmonary disease) J44.9 ; Angina pectoris I20.9 ; Nocturnal hypoxia G47.34 and Hypertension I10 [facility] [address] [place] [id number] Nov, [facility] [address] [place] [address] October, [facility] [address] [place] [id number] October, [facility] [address] [place] [id number] October, [facility] [address] [place] [address] October, Hypertension I10 ; COPD (chronic obstructive pulmonary disease) J44.9 ; Hyperlipidemia E78.5 ; COPD exacerbation J44.1 ; Episode of recurrent major depressive disorder, unspecified depression episode severity F33.9 and BMI 35.0- 35.9,adult Z68.35 [facility] [address] [place] [id number] October, [facility] [address] [place] [id number] Sep, [facility] [address] [place] [id number] Sep, [facility] [address] [place] [id number] Sep, Hypertension I10 ; COPD (chronic obstructive pulmonary disease) J44.9 ; Nocturnal hypoxia G47.34 and Obstructive sleep apnea syndrome G47.33 [facility] [address] [place] [id number] Sep, [facility] [address] [place] [id number] Sep, [facility] [address] [place] [id number] Aug, [facility] [address] [place] [id number] Aug, [facility] [address] [place] [id number] Aug, Encounter for screening mammogram for malignant neoplasm of breast Z12.31 ; Tinnitus of right ear H93.11 and Obstructive sleep apnea G47.33 [facility] [address] [place] [id number] Aug, [facility] [address] [place] [id number] Aug, Encounter for Medicare annual wellness exam Z00.00 and Advanced directives , counseling/discussion Z71.89 [facility] [address] [place], [place] [id number] Jul, [facility] [address] [place] [id number] Jul, [facility] [address] [place] [id number] Jul, [facility] [address] [place] [id number] Jul, Right sided abdominal pain R10.9 ; Hypertension I10 ; COPD (chronic obstructive pulmonary disease) J44.9 and Hyperlipidemia E78.5 [facility] [address] [place] [id number] Jul, [facility] [address] [place] [id number] Jul, [facility] [address] [place] [id number] Jul, Acute gastritis without hemorrhage, unspecified gastritis type K29.00 ; Diarrhea, unspecified type R19.7 ; Hypertension I10 ; COPD (chronic obstructive pulmonary disease) J44.9 and Hyperlipidemia E78.5 [facility] [address] [place] [id number] Jul, [facility] [address] [place], [place] [id number] Jun, Acute lower respiratory infection J22 ; Other fatigue R53.83 and History of influenza Z87.09 [facility] [address] [place] [id number] Jun, [facility] [address] [place] [address] Jun, [facility] [address] [place], [place] [address] Jun, Acute lower respiratory infection J22 ; Other fatigue R53.83 and History of influenza Z87.09 [facility] [address] [place] [id number] Jun, [facility] [address] [place] [id number] Jun, [facility] [address] [place] [id number] Jun, [facility] [address] [place] [address] Jun, [facility] [address] [place] [address] Jun, [facility] [address] [place] [address] Jun, Acute pain of left shoulder M25.512 [facility] [address] [place], [place] [id number] Jun, Acute pain of left shoulder M25.512 ; Gastritis without bleeding, unspecified chronicity, unspecified gastritis type K29.70 ; Hypertension I10 ; COPD (chronic obstructive pulmonary disease) J44.9 and Hyperlipidemia E78.5 [facility] [address] [place] [address] Jun, [facility] [address] [place] [id number] Jun, [facility] [address] [place] [id number] May, [facility] [address] [place] [id number] May, Acute pain of left shoulder M25.512 ; Intellectual disability F79 and Closed fracture of one rib of right side with routine healing, subsequent encounter S22.31XD [facility] [address] [place] [address] May, [facility] [address] [place] [id number] May, [facility] [address] [place] [address] May, [facility] [address] [place], [place] [id number] May, Acute bronchitis, unspecified organism J20.9 ; Hypertension I10 ; COPD ( chronic obstructive pulmonary disease) J44.9 ; Hyperlipidemia E78.5 ; Nocturnal hypoxia G47.34 and Obstructive sleep apnea syndrome G47.33 [facility] [address] [place], [place] [id number] Apr, Pain with urination R30.9 ; Hypertension I10 ; COPD (chronic obstructive pulmonary disease) J44.9 ; Hyperlipidemia E78.5 and Acute bronchitis, unspecified organism J20.9 [facility] [address] [place] [id number] Apr, Hypertension I10 [facility] [address] [place] [id number] Apr, Acute sinusitis, unspecified J01.90 [facility] [address] [place], [place] [id number] Apr, [facility] [address] [place] [address] Mar, [facility] [address] [place] [address] Mar, Other specified bacterial agents as the cause of diseases classified elsewhere B96.89 and Acute sinusitis, unspecified J01.90 [facility] [address] [place], [place] [id number] Mar, Closed fracture of one rib of right side with routine healing, subsequent encounter S22.31XD [facility] [address] [place] [address] Mar, [facility] [address] [place] [id number] Mar, COPD (chronic obstructive pulmonary disease) J44.9 ; Closed fracture of one rib of right side with routine healing, subsequent encounter S22.31XD ; Hypertension I10 ; Constipation K59.00 ; Angina pectoris I20.9 ; Depression, unspecified depression type F32.9 and Left ear pain H92.02 [facility] [address] [place] [id number] Mar, Elevated glucose R73.09 [facility] [address] [place] [id number] Mar, [facility] [address] [place] [address] Mar, Left-sided chest wall pain R07.89 and Hypertension I10 [facility] [address] [place] [id number] Feb, [facility] [address] [place] [id number] Feb, Hypertension I10 [facility] [address] [place] [id number] Feb, Closed fracture of one rib of right side, initial encounter S22.31XA ; Intellectual disability F79 ; COPD (chronic obstructive pulmonary disease) J44.9 ; Hyperlipidemia E78.5 and Hypertension I10 [facility] [address] [place] [id number] Feb, [facility] [address] [place] [address] Feb, Dysuria R30.0 [facility] [address] [place] [id number] Jan, Closed fracture of one rib of right side, initial encounter S22.31XA [facility] [address] [place], [place] [id number] Jan, [facility] [address] [place] [id number] Jan, [facility] [address] [place] [id number] Jan, Contusion of left side of back, initial encounter S20.222A [facility] [address] [place] [id number] Jan, [facility] [address] [place] [id number] Dec, [facility] [address] [place] [id number] Dec, [facility] [address] [place] [id number] Dec, COPD (chronic obstructive pulmonary disease) J44.9 and Hypertension I10 [facility] [address] [place] [address] Dec, [facility] [address] [place] [id number] Dec, [facility] [address] [place] [address] Dec, Skin irritation R23.8 [facility] [address] [place] [address] Dec, [facility] [address] [place] [id number] Dec, [facility] [address] [place] [id number] Dec, [facility] [address] [place] [id number] Dec, [facility] [address] [place] [address] October, Dysuria R30.0 and Pain of left calf M79.662 [facility] [address] [place] [id number] October, Pain of right great toe M79.674 and Overgrown toenails L60.2 [facility] [address] [place] [id number] Sep, [facility] [address] [place] [address] Sep, [facility] [address] [place] [address] Sep, Pain with urination R30.9 ; Abdominal pain, unspecified location R10.9 and Loose stools R19.5 [facility] [address] [place] [address] Sep, Hypertension I10 [facility] [address] [place] [id number] Sep, [facility] [address] [place] [id number] Sep, Acute cystitis with hematuria N30.01 [facility] [address] [place] [address] Sep, [facility] [address] [place] [address] Sep, Urinary frequency R35.0 [facility] [address] [place] [address] Aug, [facility] [address] [place] [address] Aug, Screening for breast cancer Z12.39 [facility] [address] [place], [place] [id number] Aug, [facility] [address] [place] [address] Aug, [facility] [address] [place] [address] Aug, [facility] [address] [place] [id number] Aug, [facility] [address] [place] [address] Aug, [facility] [address] [place] [id number] Aug, [facility] [address] [place] [id number] Aug, [facility] [address] [place] [id number] Aug, [facility] [address] [place], [place] [address] Jul, Dysuria R30.0 [facility] [address] [place], [place] [id number] Jul, Chest wall pain R07.89 and Myofascial pain M79.1 [facility] [address] [place] [address] Jul, [facility] [address] [place] [id number] Jul, Depression, unspecified depression type F32.9 ; Chronic obstructive pulmonary disease, unspecified COPD type J44.9 ; Hypertension I10 ; Angina pectoris I20.9 and Costochondritis M94.0 [facility] [address] [place] [id number] Jun, Acute non-recurrent maxillary sinusitis J01.00 [facility] [address] [place] [id number] Jun, [facility] [address] [place] [id number] Jun, [facility] [address] [place] [address] Jun, [facility] [address] [place], [place] [address] Jun, [facility] [address] [place] [address] Jun, [facility] [address] [place] [id number] Jun, Left-sided chest wall pain R07.89 and Cough due to bronchospasm J98.01 [facility] [address] [place], [place] [id number] Jun, [facility] [address] [place] [address] May, [facility] [address] [place] [id number] May, Left-sided chest wall pain R07.89 [facility] [address] [place] [address] May, Left-sided chest wall pain R07.89 and Cough due to bronchospasm J98.01 [facility] [address] [place] [address] May, [facility] [address] [place], [place] [id number] May, Encounter for Medicare annual wellness exam Z00.00 ; Advanced directives, counseling/discussion Z71.89 ; Screening for osteoporosis Z13.820 ; Bilateral hearing loss, unspecified hearing loss type H91.93 ; Intellectual disability F79 ; COPD (chronic obstructive pulmonary disease) J44.9 ; Postmenopausal Z78.0 ; Hypertension I10 ; Hyperlipidemia E78.5 ; Constipation K59.00 and Angina pectoris I20.9 [facility] [address] [place] [id number] May, [facility] [address] [place], [place] [id number] May, Left-sided chest wall pain R07.89 and Chest wall contusion, left, initial encounter S20.212A [address], [address] [place], [place] [id number] May, Dog bite, subsequent encounter W54.0XXD [address], [address] [place], [place] [address] May, Open bite of right hand, initial encounter S61.451A and Bitten by dog, initial encounter W54.0XXA [facility] [address] [place] [address] May, [facility] [address] [place], [place] [address] May, [facility] [address] [place], [place] [address] Apr, Chest congestion R09.89 ; COPD exacerbation J44.1 and Dermatitis L30.[address] [place], [place] [id number] Apr, Secondary infection of skin L08.89 and Keratotic lesion L57.0 [facility] [address], [address] [place], [place] [id number] Mar, Hypertension I10 ; Bronchitis J40 and Cough R05 [facility] [address] [place], [place] [id number] Feb, [facility] [address] [place], [place] [address] Feb, Skin tag L91.8 [facility] [address] [place], [place] [address] Dec, Dysuria R30.0 and Vaginitis N76.0 [facility] [address] [place], [place] [id number] Dec, Constipation K59.00 ; Hypertension I10 ; Bronchitis J40 ; Post-tussive emesis R11.10 and Cough R05 [facility] [address] [place], [place] [address] Dec, [facility] [address] [place], [place] [id number] Nov, Constipation K59.00 and Bronchitis J40 [facility] [address] [place] [id number] Nov, [facility] [address] [place], [place] [id number] October, Dysuria R30.0 [facility] [address], [address] [place], [place] [address] October, Urinary frequency R35.0 and UTI (urinary tract infection) N39.0 [facility] [address] [place], [place] [address] Sep, Intellectual disability F79 ; COPD (chronic obstructive pulmonary disease ) J44.9 ; Postmenopausal Z78.0 ; Hypertension I10 and Hyperlipidemia E78.5 [facility] [address] [place], [place] [address] Aug, Pain with urination R30.9 ; Wrist pain, left M25.532 and Pain in scapula M89.8X1 [facility] [address] [place], [place] [id number] Jul, Pain with urination R30.9 and Vaginitis N76.0 [facility] [address] [place], [place] [address] Jul, Screening for breast cancer Z12.39 [facility] [address] [place], [place] [id number] 10 Jul, 2015 Acute upper respiratory infection, unspecified J06.9 and Other viral agents as the cause of diseases classified elsewhere B97.89 [facility] [address] [place], [place] [address] Jun, Cellulitis L03.[address], [facility] [address] [place], [place] [address] Jun, Gastritis 535.50 ; URI (upper respiratory infection) J06.9 and Ingrown toenail L60.[address], [facility] [address] [place], [place] [id number] Apr, Gastritis 535.50 and Oral lesion K13.[address] [place], [place] [id number] Mar, Dysuria R30.0 and Pain of right scapula M89.8X1 [address], [facility] [address] [place], [place] [address] Mar, [address] [id number] Mar, [address] [place], [place] [id number] Feb, Right knee pain 719.[address], [facility] [address] [place], [place] [address] Feb, [address], [address] [id number] Feb, Right knee pain 719.[address], [facility] [address] [place], [place] [address] Jan, Allergic rhinitis 477.9 and Cough 786.[address] [place], [place] [address] Jan, [address], [facility] [address] [place], [place] [address] Jan, Insect bites 919.[address], [facility] [address] [place], [place] [id number] Jan, Fatigue 780.79 ; Gastritis 535.50 and Wound abscess 879.[address], [facility] [address] [place], [place] [address] Dec, [address], [facility] [address] [place], [place] [address] Nov, Fatigue 780.79 ; Weakness generalized 780.79 and Gastritis 535.[address], [facility] [address] [place], [place] [address] Nov, [facility] [address] [place] [address] October, [facility] [address] [place] [address] October, [facility] [address] [place] [id number] October, [facility] [address] [place] [address] October, [facility] [address] [place] [address] Sep, [facility] [address] [place] [address] Sep, [facility] [address] [place] [address] Sep, [facility] [address] [place] [address] Aug, [facility] [address] [place] [address] Aug, [facility] [address] [place] [address] Jul, [facility] [address] [place] [id number] Jul, [facility] [address] [place] [address] May, [facility] [address] [place] [address] May, [facility] [address] [place] [id number] Apr, [facility] [address] [place] [address] Mar, [facility] [address] [place] [address] Mar, [facility] [address] [place] [id number] Feb, [place] [facility] [address] [place], [place] [id number] Jan, [facility] [address] [place], [place] [id number] Jan, [facility] [address] [place] [id number] Nov, [facility] [address] [place] [id number] October, [facility] [address] [place] [id number] October, [facility] [address] [place] [id number] Sep, [facility] [address] [place] [id number] Aug, [facility] [address] [place] [id number] Jul, [facility] [address] [place] [id number] Jun, [facility] [address] [place] [id number] May, [facility] [address] [place] [id number] Mar, [facility] [address] [place] [id number] Mar, [facility] [address] [place] [id number] Jan, [facility] [address] [place] [id number] Dec, [facility] [address] [place] [id number] Nov, [facility] [address] [place] [id number] October, [facility] [address] [place] [id number] Aug, [facility] [address] [place] [id number] Jul, [facility] [address] [place] [id number] Jun, [facility] [address] [place] [id number] Jun, [facility] [address] [place] [id number] Jun, [facility] [address] [place] [id number] May, [facility] [address] [place], [place] [id number] Apr, [facility] [address] [place] [id number] Mar, [facility] [address] [place] [id number] Mar, [facility] [address] [place], [place] [id number] Mar, IMMUNIZATIONS No Known Immunizations SOCIAL HISTORY Never Assessed REASON FOR VISIT Thumb is really hurting PLAN OF CARE VITAL SIGNS MEDICATIONS Unknown [...]
--- OUTSIDE RECORDS SUMMARY | 2018-02-04 20:17 | XMS REPORT ---
Author Author Rogelio Prado Organization [facility] Address [address], [facility] [address] [place], [place] [id number] Care Team Providers Care Supervisor [employer] Name Role Phone [place], Rogelio Unavailable PROBLEMS Type Condition ICD9-CM Code [id number] Code Onset Dates Condition Status SNOMED Code Problem COPD (chronic obstructive pulmonary disease) with acute bronchitis J44.0 Active [id number] Problem Nocturnal hypoxia G47.34 Active 986328142 Problem Closed fracture of one rib of right side with routine healing, subsequent encounter S22.31XD Active 43912625 Problem Unspecified constipation K59.00 Active 41451277 Problem BMI 35.0-35.9,adult Z68.35 Active 726663589 Problem Acute sinusitis, unspecified J01.90 Active 80496830 Problem Chronic sinusitis, unspecified J32.9 Active 575477358 Problem Obstructive sleep apnea syndrome G47.33 Active 33942067 Problem Gastritis without bleeding, unspecified chronicity, unspecified gastritis type K29.70 Active 2887976 Problem Hyperlipidemia E78.5 Active 33670382 Problem COPD (chronic obstructive pulmonary disease) J44.9 Active 36521130 Problem Episode of recurrent major depressive disorder, unspecified depression episode severity F33.9 Active 624251856 Problem Intellectual disability F79 Active 57594214 Problem COPD exacerbation J44.1 Active 701864925 Problem Hypertension I10 Active 52955773 Problem Angina pectoris I20.9 Active 184861312 Problem Postmenopausal Z78.0 Active 44562832 Problem Constipation K59.00 Active 15775878 ALLERGIES No Information ENCOUNTERS Encounter Location Date Diagnosis [facility] [address], [facility] [address] [place] [id number] Aug, [facility] [address], [address] [place] [id number] Jan, [facility] [address], [facility] [address] [place] [id number] Dec, Acute cystitis without hematuria N30.00 ; Abdominal cramping R10.9 and Unspecified constipation K59.00 [facility] [address], [address] [place] [id number] Dec, [facility] [address], [address] [place] [id number] Dec, [facility] [address], [address] [place] [id number] Dec, [facility] [address], [address] [place] [id number] Dec, Pain with urination R30.9 [facility] [address], [address] [place] [id number] Dec, [facility] [address], [address] [place] [id number] Dec, [facility] [address], [address] [place] [id number] Nov, COPD (chronic obstructive pulmonary disease) J44.9 ; Hypertension I10 and Vaginal discharge N89.8 [facility] [address], [address] [place] [id number] Nov, [facility] [address], [address] [place] [id number] Nov, COPD (chronic obstructive pulmonary disease) J44.9 ; Angina pectoris I20.9 ; Nocturnal hypoxia G47.34 and Hypertension I10 [facility] [address], [address] [place] [id number] Nov, [facility] [address], [address] [place] [id number] October, [facility] [address], [address] [place] [id number] October, [facility] [address], [address] [place] [id number] October, [facility] [address], [address] [place] [id number] October, Hypertension I10 ; COPD (chronic obstructive pulmonary disease) J44.9 ; Hyperlipidemia E78.5 ; COPD exacerbation J44.1 ; Episode of recurrent major depressive disorder, unspecified depression episode severity F33.9 and BMI 35.0- 35.9,adult Z68.35 [facility] [address], [address] [place] [id number] October, [facility] [address], [address] [place] [id number] Sep, [facility] [address], [address] [place] [id number] Sep, [facility] [address], [address] [place] [id number] Sep, Hypertension I10 ; COPD (chronic obstructive pulmonary disease) J44.9 ; Nocturnal hypoxia G47.34 and Obstructive sleep apnea syndrome G47.33 [facility] [address], [address] [place] [id number] Sep, [facility] [address], [address] [place], [place] [id number] Sep, [facility] [address], [address] [place] [id number] Aug, [facility] [address], [address] [place] [id number] Aug, [facility] [address], [address] [place] [id number] Aug, Encounter for screening mammogram for malignant neoplasm of breast Z12.31 ; Tinnitus of right ear H93.11 and Obstructive sleep apnea G47.33 [facility] [address], [address] [place] [id number] Aug, [facility] [address], [address] [place] [id number] Aug, Encounter for Medicare annual wellness exam Z00.00 and Advanced directives , counseling/discussion Z71.89 [facility] [address], [address] [place] [id number] Jul, [facility] [address], [address] [place] [id number] Jul, [facility] [address], [address] [place] [id number] Jul, [facility] [address], [address] [place], [place] [id number] Jul, Right sided abdominal pain R10.9 ; Hypertension I10 ; COPD (chronic obstructive pulmonary disease) J44.9 and Hyperlipidemia E78.5 [facility] [address], [address] [place] [id number] Jul, [facility] [address], [address] [place] [id number] Jul, [facility] [address], [address] [place] [id number] Jul, Acute gastritis without hemorrhage, unspecified gastritis type K29.00 ; Diarrhea, unspecified type R19.7 ; Hypertension I10 ; COPD (chronic obstructive pulmonary disease) J44.9 and Hyperlipidemia E78.5 [facility] [address], [address] [place] [id number] Jul, [facility] [address], [address] [place] [id number] Jun, Acute lower respiratory infection J22 ; Other fatigue R53.83 and History of influenza Z87.09 [facility] [address] [place], [place] [id number] Jun, [facility] [address], [address] [place] [id number] Jun, [facility] [address], [address] [place] [id number] Jun, Acute lower respiratory infection J22 ; Other fatigue R53.83 and History of influenza Z87.09 [facility] [address] [place] [id number] Jun, [facility] [address] [place] [id number] Jun, [facility] [address] [place] [id number] Jun, [facility] [address] [place] [id number] Jun, [facility] [address], [address] [place] [id number] Jun, [facility] [address], [address] [place], [place] [id number] Jun, Acute pain of left shoulder M25.512 [facility] [address], [address] [place] [id number] Jun, Acute pain of left shoulder M25.512 ; Gastritis without bleeding, unspecified chronicity, unspecified gastritis type K29.70 ; Hypertension I10 ; COPD (chronic obstructive pulmonary disease) J44.9 and Hyperlipidemia E78.5 [facility] [address], [address] [place] [id number] Jun, [facility] [address], [address] [place] [id number] Jun, [facility] [address], [address] [place] [id number] May, [facility] [address], [address] [place] [id number] May, Acute pain of left shoulder M25.512 ; Intellectual disability F79 and Closed fracture of one rib of right side with routine healing, subsequent encounter S22.31XD [facility] [address], [address] [place] [id number] May, [facility] [address], [address] [place] [id number] May, [facility] [address], [address] [place] [id number] May, [facility] [address], [address] [place] [id number] May, Acute bronchitis, unspecified organism J20.9 ; Hypertension I10 ; COPD ( chronic obstructive pulmonary disease) J44.9 ; Hyperlipidemia E78.5 ; Nocturnal hypoxia G47.34 and Obstructive sleep apnea syndrome G47.33 [facility] [address], [address] [place] [id number] Apr, Pain with urination R30.9 ; Hypertension I10 ; COPD (chronic obstructive pulmonary disease) J44.9 ; Hyperlipidemia E78.5 and Acute bronchitis, unspecified organism J20.9 [facility] [address], [address] [place] [id number] Apr, Hypertension I10 [facility] [address], [address] [place] [id number] Apr, Acute sinusitis, unspecified J01.90 [facility] [address], [address] [place] [id number] Apr, [facility] [address], [address] [place] [id number] Mar, [facility] [address], [address] [place] [id number] Mar, Other specified bacterial agents as the cause of diseases classified elsewhere B96.89 and Acute sinusitis, unspecified J01.90 [facility] [address], [address] [place] [id number] Mar, Closed fracture of one rib of right side with routine healing, subsequent encounter S22.31XD [facility] [address], [address] [place] [id number] Mar, [facility] [address], [address] [place] [id number] Mar, COPD (chronic obstructive pulmonary disease) J44.9 ; Closed fracture of one rib of right side with routine healing, subsequent encounter S22.31XD ; Hypertension I10 ; Constipation K59.00 ; Angina pectoris I20.9 ; Depression, unspecified depression type F32.9 and Left ear pain H92.02 [facility] [address], [address] [place] [id number] Mar, Elevated glucose R73.09 [facility] [address], [address] [place] [id number] Mar, [facility] [address], [address] [place] [id number] Mar, Left-sided chest wall pain R07.89 and Hypertension I10 [facility] [address], [address] [place], [place] [id number] Feb, [facility] [address], [address] [place] [id number] Feb, Hypertension I10 [facility] [address], [address] [place], [place] [id number] Feb, Closed fracture of one rib of right side, initial encounter S22.31XA ; Intellectual disability F79 ; COPD (chronic obstructive pulmonary disease) J44.9 ; Hyperlipidemia E78.5 and Hypertension I10 [facility] [address], [address] [place] [id number] Feb, [facility] [address], [address] [place] [id number] Feb, Dysuria R30.0 [facility] [address], [address] [place] [id number] Jan, Closed fracture of one rib of right side, initial encounter S22.31XA [facility] [address], [address] [place], [place] [id number] Jan, [facility] [address], [address] [place] [id number] Jan, [facility] [address], [address] [place] [id number] Jan, Contusion of left side of back, initial encounter S20.222A [facility] [address], [address] [place] [id number] Jan, [facility] [address], [address] [place] [id number] Dec, [facility] [address], [address] [place] [id number] Dec, [facility] [address], [address] [place] [id number] Dec, COPD (chronic obstructive pulmonary disease) J44.9 and Hypertension I10 [facility] [address], [address] [place], [place] [id number] Dec, [facility] [address], [address] [place] [id number] Dec, [facility] [address], [address] [place] [id number] Dec, Skin irritation R23.8 [facility] [address], [address] [place] [id number] Dec, [facility] [address], [address] [place] [id number] Dec, [facility] [address], [address] [place] [id number] Dec, [facility] [address], [address] [place] [id number] Dec, [facility] [address], [address] [place] [id number] October, Dysuria R30.0 and Pain of left calf M79.662 [facility] [address], [address] [place] [id number] October, Pain of right great toe M79.674 and Overgrown toenails L60.2 [facility] [address], [address] [place] [id number] Sep, [facility] [address], [address] [place] [id number] Sep, [facility] [address], [address] [place] [id number] Sep, Pain with urination R30.9 ; Abdominal pain, unspecified location R10.9 and Loose stools R19.5 [facility] [address], [address] [place] [id number] Sep, Hypertension I10 [facility] [address], [address] [place] [id number] Sep, [facility] [address], [address] [place] [id number] Sep, Acute cystitis with hematuria N30.01 [facility] [address], [address] [place] [id number] Sep, [facility] [address], [address] [place] [id number] Sep, Urinary frequency R35.0 [facility] [address], [address] [place] [id number] Aug, [facility] [address], [address] [place] [id number] Aug, Screening for breast cancer Z12.39 [facility] [address], [address] [place] [id number] Aug, [facility] [address], [address] [place] [id number] Aug, [facility] [address], [address] [place] [id number] Aug, [facility] [address] [place] [id number] Aug, [facility] [address] [place] [id number] Aug, [facility] [address], [address] [place] [id number] Aug, [facility] [address], [address] [place] [id number] Aug, [facility] [address], [address] [place] [id number] Aug, [facility] [address], [address] [place] [id number] Jul, Dysuria R30.0 [facility] [address], [address] [place] [id number] Jul, Chest wall pain R07.89 and Myofascial pain M79.1 [facility] [address], [address] [place] [id number] Jul, [facility] [address], [address] [place] [id number] Jul, Depression, unspecified depression type F32.9 ; Chronic obstructive pulmonary disease, unspecified COPD type J44.9 ; Hypertension I10 ; Angina pectoris I20.9 and Costochondritis M94.0 [facility] [address], [address] [place] [id number] Jun, Acute non-recurrent maxillary sinusitis J01.00 [facility] [address], [address] [place] [id number] Jun, [facility] [address], [address] [place] [id number] Jun, [facility] [address], [address] [place] [id number] Jun, [facility] [address], [address] [place] [id number] Jun, [facility] [address], [address] [place] [id number] Jun, [facility] [address], [address] [place] [id number] Jun, Left-sided chest wall pain R07.89 and Cough due to bronchospasm J98.01 [facility] [address], [address] [place] [id number] Jun, [facility] [address], [address] [place] [id number] May, [facility] [address], [address] [place] [id number] May, Left-sided chest wall pain R07.89 [facility] [address], [address] [place] [id number] May, Left-sided chest wall pain R07.89 and Cough due to bronchospasm J98.01 [facility] [address], [address] [place] [id number] May, [facility] [address], [address] [place] [id number] May, Encounter for Medicare annual wellness exam Z00.00 ; Advanced directives, counseling/discussion Z71.89 ; Screening for osteoporosis Z13.820 ; Bilateral hearing loss, unspecified hearing loss type H91.93 ; Intellectual disability F79 ; COPD (chronic obstructive pulmonary disease) J44.9 ; Postmenopausal Z78.0 ; Hypertension I10 ; Hyperlipidemia E78.5 ; Constipation K59.00 and Angina pectoris I20.9 [facility] [address], [address] [place] [id number] May, [facility] [address], [address] [place] [id number] May, Left-sided chest wall pain R07.89 and Chest wall contusion, left, initial encounter S20.212A [address], [facility] [address] [place] [id number] May, Dog bite, subsequent encounter W54.0XXD [address] [place] [id number] May, Open bite of right hand, initial encounter S61.451A and Bitten by dog, initial encounter W54.0XXA [address], [address] [place] [id number] May, [facility] [address], [facility] [address] [place] [id number] May, [facility] [address], [address] [place] [id number] Apr, Chest congestion R09.89 ; COPD exacerbation J44.1 and Dermatitis L30.[address], [facility] [address] [place] [id number] Apr, Secondary infection of skin L08.89 and Keratotic lesion L57.[address], [address] [place] [id number] Mar, Hypertension I10 ; Bronchitis J40 and Cough R05 [address], [facility] [address] [place] [id number] Feb, [facility] [address], [address] [place] [id number] Feb, Skin tag L91.[address], [facility] [address] [place] [id number] Dec, Dysuria R30.0 and Vaginitis N76.[address], [facility] [address] [place] [id number] Dec, Constipation K59.00 ; Hypertension I10 ; Bronchitis J40 ; Post-tussive emesis R11.10 and Cough R05 [address], [address] [place] [id number] Dec, [address], [address] [place] [id number] Nov, Constipation K59.00 and Bronchitis J40 [address] [place] [id number] Nov, [address] [place] [id number] October, Dysuria R30.[address] [id number] October, Urinary frequency R35.0 and UTI (urinary tract infection) N39.[address] [place] [id number] Sep, Intellectual disability F79 ; COPD (chronic obstructive pulmonary disease ) J44.9 ; Postmenopausal Z78.0 ; Hypertension I10 and Hyperlipidemia E78.[address], [facility] 200 [place] [id number] Aug, Pain with urination R30.9 ; Wrist pain, left M25.532 and Pain in scapula M89.8X1 [address] [id number] Jul, Pain with urination R30.9 and Vaginitis N76.[address] [place] [id number] Jul, Screening for breast cancer Z12.[address] [place] [id number] Jul, Acute upper respiratory infection, unspecified J06.9 and Other viral agents as the cause of diseases classified elsewhere B97.[address] [place] [id number] Jun, Cellulitis L03.[address] [id number] Jun, Gastritis 535.50 ; URI (upper respiratory infection) J06.9 and Ingrown toenail L60.[address] [id number] Apr, Gastritis 535.50 and Oral lesion K13.70 [facility] [address] [place] [id number] Mar, Dysuria R30.0 and Pain of right scapula M89.8X1 [facility] [address], [address] [place] [id number] Mar, [facility] [address], [address] [place] [id number] Mar, [facility] [address], [address] [place] [id number] Feb, Right knee pain 719.46 [facility] [address], [address] [place] [id number] Feb, [facility] [address], [address] [place] [id number] Feb, Right knee pain 719.46 [facility] [address] [place] [id number] Jan, Allergic rhinitis 477.9 and Cough 786.2 [facility] [address] [place] [id number] Jan, [facility] [address] [place] [id number] Jan, Insect bites 919.4 [facility] [address] [place] [id number] Jan, Fatigue 780.79 ; Gastritis 535.50 and Wound abscess 879.9 [facility] [address] [place] [id number] Dec, [facility] [address], [address] [place] [id number] Nov, Fatigue 780.79 ; Weakness generalized 780.79 and Gastritis 535.50 [facility] [address] [place] [id number] Nov, [facility] [address] [place] [id number] October, [facility] [address] [place] [id number] October, [facility] [address] [place] [id number] October, [facility] [address] [place] [id number] October, [facility] [address] [place] [id number] Sep, [facility] [address] [place] [id number] Sep, [facility] [address] [place] [id number] Sep, [facility] [address] [place] [id number] Aug, [facility] [address], [address] [place] [id number] Aug, [facility] [address] [place] [id number] Jul, [facility] [address] [place] [id number] Jul, [facility] [address] [place] [id number] May, [facility] [address] [place] [id number] May, [facility] [address] [place] [id number] Apr, [facility] [address] [place] [id number] Mar, [facility] [address] [place] [id number] Mar, [facility] [address] [place] [id number] Feb, [facility] [address] [place] [id number] Jan, [facility] [address] [place], [place] [id number] Jan, [facility] [address] [place] [id number] Nov, [facility] [address], [address] [place] [id number] October, [facility] [address] [place] [id number] October, [facility] [address] [place] [id number] Sep, [facility] [address] [place] [id number] Aug, [facility] [address], [address] [place] [id number] Jul, [facility] [address] [place] [id number] Jun, [facility] [address] [place] [id number] May, [facility] [address], [address] [place] [id number] Mar, [facility] [address], [address] [place] [id number] Mar, [facility] [address], [address] [place] [id number] Jan, [facility] [address], [address] [place] [id number] Dec, [facility] [address] [place] [id number] Nov, [facility] [address], [address] [place] [id number] October, [facility] [address] [place] [id number] Aug, [facility] [address] [place] [id number] Jul, [facility] [address] [place] [id number] Jun, [facility] [address] [place] [id number] Jun, [facility] [address] [place] [id number] Jun, [facility] [address] [place] [id number] May, [facility] [address] [place] [id number] Apr, [facility] [address], [address] [place] [id number] Mar, [facility] [address], [address] [place] [id number] Mar, [facility] [address], [address] [place] [id number] Mar, IMMUNIZATIONS No Known Immunizations SOCIAL HISTORY Never Assessed REASON FOR VISIT ER followup- PLAN OF CARE VITAL SIGNS MEDICATIONS Unknown [...]
--- OUTSIDE RECORDS SUMMARY | 2018-02-04 20:17 | XMS REPORT ---
Author Author Jaimie Rodriguez Organization [facility] Address [address] [place], [place] [id number] Care Team Providers Care Administrative Technician Name Role Phone Jaimie Rodriguez Unavailable PROBLEMS Type Condition ICD9-CM Code LNV23-MC Code Onset Dates Condition Status SNOMED Code Problem COPD (chronic obstructive pulmonary disease) with acute bronchitis J44.0 Active [id number] Problem Nocturnal hypoxia G47.34 Active 977319297 Problem Closed fracture of one rib of right side with routine healing, subsequent encounter S22.31XD Active 75267216 Problem Unspecified constipation K59.00 Active 81512048 Problem BMI 35.0-35.9,adult Z68.35 Active 025826061 Problem Acute sinusitis, unspecified J01.90 Active 57128994 Problem Chronic sinusitis, unspecified J32.9 Active 351575305 Problem Obstructive sleep apnea syndrome G47.33 Active 95237770 Problem Gastritis without bleeding, unspecified chronicity, unspecified gastritis type K29.70 Active 2998132 Problem Hyperlipidemia E78.5 Active 84586471 Problem COPD (chronic obstructive pulmonary disease) J44.9 Active 60116482 Problem Episode of recurrent major depressive disorder, unspecified depression episode severity F33.9 Active 042291995 Problem Intellectual disability F79 Active 18389999 Problem COPD exacerbation J44.1 Active 937932625 Problem Hypertension I10 Active 84701594 Problem Angina pectoris I20.9 Active 141503485 Problem Postmenopausal Z78.0 Active 59283982 Problem Constipation K59.00 Active 26398815 ALLERGIES Substance Reaction Event Type Date Status Zithromax Unknown Drug Allergy Dec, Active ENCOUNTERS Encounter Location Date Diagnosis [facility] [address] [place], [place] [id number] Aug, [facility] [address] [place] [id number] Jan, [facility] [address] [place] [id number] Dec, Acute cystitis without hematuria N30.00 ; Abdominal cramping R10.9 and Unspecified constipation K59.00 [facility] [address] [place] [id number] Dec, [facility] [address] [place] [address] Dec, [facility] [address] [place] [id number] Dec, [facility] [address] [place] [id number] Dec, Pain with urination R30.9 [facility] [address] [place] [id number] Dec, [facility] [address] [place] [id number] Dec, [facility] [address] [place] [id number] Nov, COPD (chronic obstructive pulmonary disease) J44.9 ; Hypertension I10 and Vaginal discharge N89.8 [facility] [address] [place] [id number] Nov, [facility] [address] [place] [id number] Nov, COPD (chronic obstructive pulmonary disease) J44.9 ; Angina pectoris I20.9 ; Nocturnal hypoxia G47.34 and Hypertension I10 [facility] [address] [place] [id number] Nov, [facility] [address] [place] [id number] October, [facility] [address] [place] [address] October, [facility] [address] [place] [id number] October, [facility] [address] [place] [id number] October, Hypertension I10 ; COPD (chronic obstructive pulmonary disease) J44.9 ; Hyperlipidemia E78.5 ; COPD exacerbation J44.1 ; Episode of recurrent major depressive disorder, unspecified depression episode severity F33.9 and BMI 35.0- 35.9,adult Z68.35 [facility] [address] [place] [id number] October, [facility] [address] [place] [id number] Sep, [facility] [address] [place] [id number] Sep, [facility] [address] [place] [id number] Sep, Hypertension I10 ; COPD (chronic obstructive pulmonary disease) J44.9 ; Nocturnal hypoxia G47.34 and Obstructive sleep apnea syndrome G47.33 [facility] [address] [place] [id number] Sep, [facility] [address] [place] [address] Sep, [facility] [address] [place] [id number] Aug, [facility] [address] [place] [id number] Aug, [facility] [address] [place] [id number] Aug, Encounter for screening mammogram for malignant neoplasm of breast Z12.31 ; Tinnitus of right ear H93.11 and Obstructive sleep apnea G47.33 [facility] [address] [place] [id number] Aug, [facility] [address] [place] [id number] Aug, Encounter for Medicare annual wellness exam Z00.00 and Advanced directives , counseling/discussion Z71.89 [facility] [address] [place] [id number] Jul, [facility] [address] [place] [id number] Jul, [facility] [address] [place] [id number] Jul, [facility] [address] [place] [address] Jul, Right sided abdominal pain R10.9 ; Hypertension I10 ; COPD (chronic obstructive pulmonary disease) J44.9 and Hyperlipidemia E78.5 [facility] [address] [place] [id number] Jul, [facility] [address] [place] [address] Jul, [facility] [address] [place] [id number] Jul, Acute gastritis without hemorrhage, unspecified gastritis type K29.00 ; Diarrhea, unspecified type R19.7 ; Hypertension I10 ; COPD (chronic obstructive pulmonary disease) J44.9 and Hyperlipidemia E78.5 [facility] [address] [place], [place] [id number] Jul, [facility] [address] [place] [address] Jun, Acute lower respiratory infection J22 ; Other fatigue R53.83 and History of influenza Z87.09 [facility] [address] [place] [id number] Jun, [facility] [address] [place] [address] Jun, [facility] [address] [place] [address] Jun, Acute lower respiratory infection J22 ; Other fatigue R53.83 and History of influenza Z87.09 [facility] [address] [place] [id number] Jun, [facility] [address] [place] [id number] Jun, [facility] [address] [place] [id number] Jun, [facility] [address] [place] [address] Jun, [facility] [address] [place] [id number] Jun, [facility] [address] [place] [address] Jun, Acute pain of left shoulder M25.512 [facility] [address] [place] [id number] Jun, Acute pain of left shoulder M25.512 ; Gastritis without bleeding, unspecified chronicity, unspecified gastritis type K29.70 ; Hypertension I10 ; COPD (chronic obstructive pulmonary disease) J44.9 and Hyperlipidemia E78.5 [facility] [address] [place] [id number] Jun, [facility] [address] [place] [id number] Jun, [facility] [address] [place] [address] May, [facility] [address] [place] [id number] May, Acute pain of left shoulder M25.512 ; Intellectual disability F79 and Closed fracture of one rib of right side with routine healing, subsequent encounter S22.31XD [facility] [address] [place] [id number] May, [facility] [address] [place] [id number] May, [facility] [address] [place] [address] May, [facility] [address] [place], [place] [id number] May, Acute bronchitis, unspecified organism J20.9 ; Hypertension I10 ; COPD ( chronic obstructive pulmonary disease) J44.9 ; Hyperlipidemia E78.5 ; Nocturnal hypoxia G47.34 and Obstructive sleep apnea syndrome G47.33 [facility] [address] [place], [place] [id number] Apr, Pain with urination R30.9 ; Hypertension I10 ; COPD (chronic obstructive pulmonary disease) J44.9 ; Hyperlipidemia E78.5 and Acute bronchitis, unspecified organism J20.9 [facility] [address] [place], [place] [id number] Apr, Hypertension I10 [facility] [address] [place], [place] [id number] Apr, Acute sinusitis, unspecified J01.90 [facility] [address] [place] [address] Apr, [facility] [address] [place] [id number] Mar, [facility] [address] [place] [id number] Mar, Other specified bacterial agents as the cause of diseases classified elsewhere B96.89 and Acute sinusitis, unspecified J01.90 [facility] [address] [place], [place] [id number] Mar, Closed fracture of one rib of right side with routine healing, subsequent encounter S22.31XD [facility] [address] [place], [place] [id number] Mar, [facility] [address] [place], [place] [id number] Mar, COPD (chronic obstructive pulmonary disease) J44.9 ; Closed fracture of one rib of right side with routine healing, subsequent encounter S22.31XD ; Hypertension I10 ; Constipation K59.00 ; Angina pectoris I20.9 ; Depression, unspecified depression type F32.9 and Left ear pain H92.02 [facility] [address] [place] [id number] Mar, Elevated glucose R73.09 [facility] [address] [place], [place] [id number] Mar, [facility] [address] [place] [id number] Mar, Left-sided chest wall pain R07.89 and Hypertension I10 [facility] [address] [place], [place] [address] Feb, [facility] [address] [place], [place] [id number] Feb, Hypertension I10 [facility] [address] [place] [id number] Feb, Closed fracture of one rib of right side, initial encounter S22.31XA ; Intellectual disability F79 ; COPD (chronic obstructive pulmonary disease) J44.9 ; Hyperlipidemia E78.5 and Hypertension I10 [facility] [address] [place] [address] Feb, [facility] [address] [place] [address] Feb, Dysuria R30.0 [facility] [address] [place], [place] [id number] Jan, Closed fracture of one rib of right side, initial encounter S22.31XA [facility] [address] [place], [place] [id number] Jan, [facility] [address] [place] [id number] Jan, [facility] [address] [place] [id number] Jan, Contusion of left side of back, initial encounter S20.222A [facility] [address] [place], [place] [address] Jan, [facility] [address] [place] [id number] Dec, [facility] [address] [place] [id number] Dec, [facility] [address] [place] [id number] Dec, COPD (chronic obstructive pulmonary disease) J44.9 and Hypertension I10 [facility] [address] [place], [place] [id number] Dec, [facility] [address] [place] [id number] Dec, [facility] [address] [place] [address] Dec, Skin irritation R23.8 [facility] [address] [place] [address] Dec, [facility] [address] [place] [id number] Dec, [facility] [address] [place] [address] Dec, [facility] [address] [place] [id number] Dec, [facility] [address] [place] [address] October, Dysuria R30.0 and Pain of left calf M79.662 [facility] [address] [place] [id number] October, Pain of right great toe M79.674 and Overgrown toenails L60.2 [facility] [address] [place] [id number] Sep, [facility] [address] [place] [id number] Sep, [facility] [address] [place] [address] Sep, Pain with urination R30.9 ; Abdominal pain, unspecified location R10.9 and Loose stools R19.5 [facility] [address] [place], [place] [id number] Sep, Hypertension I10 [facility] [address] [place] [id number] Sep, [facility] [address] [place] [id number] Sep, Acute cystitis with hematuria N30.01 [facility] [address] [place] [id number] Sep, [facility] [address] [place] [id number] Sep, Urinary frequency R35.0 [facility] [address] [place], [place] [id number] Aug, [facility] [address] [place] [address] Aug, Screening for breast cancer Z12.39 [facility] [address] [place] [id number] Aug, [facility] [address] [place] [id number] Aug, [facility] [address] [place] [address] Aug, [facility] [address] [place] [id number] Aug, [facility] [address] [place] [id number] Aug, [facility] [address] [place] [address] Aug, [facility] [address] [place] [id number] Aug, [facility] [address] [place] [id number] Aug, [facility] [address] [place] [address] Jul, Dysuria R30.0 [facility] [address] [place], [place] [id number] Jul, Chest wall pain R07.89 and Myofascial pain M79.1 [facility] [address] [place], [place] [id number] Jul, [facility] [address] [place] [id number] Jul, Depression, unspecified depression type F32.9 ; Chronic obstructive pulmonary disease, unspecified COPD type J44.9 ; Hypertension I10 ; Angina pectoris I20.9 and Costochondritis M94.0 [facility] [address] [place], [place] [address] Jun, Acute non-recurrent maxillary sinusitis J01.00 [facility] [address] [place] [id number] Jun, [facility] [address] [place] [id number] Jun, [facility] [address] [place] [address] Jun, [facility] [address] [place] [id number] Jun, [facility] [address] [place] [id number] Jun, [facility] [address] [place], [place] [id number] Jun, Left-sided chest wall pain R07.89 and Cough due to bronchospasm J98.01 [facility] [address] [place] [id number] Jun, [facility] [address] [place], [place] [id number] May, [facility] [address] [place] [id number] May, Left-sided chest wall pain R07.89 [facility] [address] [place], [place] [id number] May, Left-sided chest wall pain R07.89 and Cough due to bronchospasm J98.[address] [place], [place] [id number] May, [address], [facility] [address] [place], [place] [id number] May, Encounter for Medicare annual wellness exam Z00.00 ; Advanced directives, counseling/discussion Z71.89 ; Screening for osteoporosis Z13.820 ; Bilateral hearing loss, unspecified hearing loss type H91.93 ; Intellectual disability F79 ; COPD (chronic obstructive pulmonary disease) J44.9 ; Postmenopausal Z78.0 ; Hypertension I10 ; Hyperlipidemia E78.5 ; Constipation K59.00 and Angina pectoris I20.[address] [place], [place] [id number] May, [address] [place], [place] [id number] May, Left-sided chest wall pain R07.89 and Chest wall contusion, left, initial encounter S20.212A [address] [place], [place] [id number] May, Dog bite, subsequent encounter W54.0XXD [address] [place], [place] [id number] May, Open bite of right hand, initial encounter S61.451A and Bitten by dog, initial encounter W54.0XXA [address], [facility] [address] [place], [place] [id number] May, [address], [facility] [employer] [place] [id number] May, [address], [facility] [address] [place] [id number] Apr, Chest congestion R09.89 ; COPD exacerbation J44.1 and Dermatitis L30.[address] [place], [place] [address] Apr, Secondary infection of skin L08.89 and Keratotic lesion L57.[address] [place], [place] [id number] Mar, Hypertension I10 ; Bronchitis J40 and Cough R05 [address] [place], [place] [id number] Feb, [address] [place] [id number] Feb, Skin tag L91.[address] [place], [place] [id number] Dec, Dysuria R30.0 and Vaginitis N76.0 [facility] [address] [place], [place] [id number] Dec, Constipation K59.00 ; Hypertension I10 ; Bronchitis J40 ; Post-tussive emesis R11.10 and Cough R05 [facility] [address] [place], [place] [id number] Dec, [facility] [address] [place] [id number] Nov, Constipation K59.00 and Bronchitis J40 [facility] [address] [place], [place] [id number] Nov, [facility] [address] [place], [place] [id number] October, Dysuria R30.[address] [place], [place] [id number] October, Urinary frequency R35.0 and UTI (urinary tract infection) N39.[address] [place], [place] [id number] Sep, Intellectual disability F79 ; COPD (chronic obstructive pulmonary disease ) J44.9 ; Postmenopausal Z78.0 ; Hypertension I10 and Hyperlipidemia E78.5 [facility] [address] [place], [place] [id number] Aug, Pain with urination R30.9 ; Wrist pain, left M25.532 and Pain in scapula M89.8X1 [address] [place], [place] [id number] Jul, Pain with urination R30.9 and Vaginitis N76.0 [facility] [address] [place], [place] [id number] Jul, Screening for breast cancer Z12.[address] [place] [id number] Jul, Acute upper respiratory infection, unspecified J06.9 and Other viral agents as the cause of diseases classified elsewhere B97.[address] [place], [place] [id number] Jun, Cellulitis L03.[address] [place], [place] [id number] Jun, Gastritis 535.50 ; URI (upper respiratory infection) J06.9 and Ingrown toenail L60.[address] [place], [place] [id number] Apr, Gastritis 535.50 and Oral lesion K13.70 [facility] [address] [place], [place] [id number] Mar, Dysuria R30.0 and Pain of right scapula M89.8X1 [facility] [address] [place], [place] [id number] Mar, [facility] [address] [place], [place] [id number] Mar, [facility] [address] [place] [id number] Feb, Right knee pain 719.46 [facility] [address] [place], [place] [address] Feb, [facility] [address] [place] [address] Feb, Right knee pain 719.46 [facility] [address] [place], [place] [id number] Jan, Allergic rhinitis 477.9 and Cough 786.2 [facility] [address] [place], [place] [id number] Jan, [facility] [address] [place] [id number] Jan, Insect bites 919.4 [facility] [address] [place], [place] [address] Jan, Fatigue 780.79 ; Gastritis 535.50 and Wound abscess 879.9 [facility] [address] [place], [place] [address] Dec, [facility] [address] [place], [place] [id number] Nov, Fatigue 780.79 ; Weakness generalized 780.79 and Gastritis 535.50 [facility] [address] [place] [id number] Nov, [facility] [address] [place] [address] October, [facility] [address] [place] [address] October, [facility] [address] [place] [id number] October, [facility] [address] [place] [id number] October, [facility] [address] [place] [id number] Sep, [facility] [address] [place] [id number] Sep, [facility] [address] [place] [id number] Sep, [facility] [address] [place] [id number] Aug, [facility] [address] [place] [id number] Aug, [facility] [address] [place] [id number] Jul, [facility] [address] [place] [address] Jul, [facility] [address] [place] [id number] May, [facility] [address] [place] [id number] May, [facility] [address] [place] [id number] Apr, [facility] [address] [place] [id number] Mar, [facility] [address] [place] [id number] Mar, [facility] [address] [place] [id number] Feb, [facility] [address] [place] [id number] Jan, [facility] [address] [place] [id number] Jan, [facility] [address] [place] [id number] Nov, [facility] [address] [place] [id number] October, [facility] [address] [place] [id number] October, [facility] [address] [place] [address] Sep, [facility] [address] [place] [address] Aug, [facility] [address] [place] [address] Jul, [facility] [address] [place] [id number] Jun, [facility] [address] [place] [id number] May, [facility] [address] [place] [address] Mar, [facility] [address] [place] [id number] Mar, [facility] [address] [place] [address] Jan, [facility] [address] [place] [address] Dec, [facility] [address] [place] [address] Nov, [facility] [address] [place] [address] October, [facility] [address] [place] [id number] Aug, [facility] [address] [place] [address] Jul, [facility] [address] [place] [id number] Jun, [facility] [address] [place] [address] Jun, [facility] [address] [place] [id number] Jun, [facility] [address] [place] [address] May, [facility] [address] [place] [id number] Apr, [facility] [address] [place] [id number] Mar, [facility] [address] [place] [address] Mar, [facility] [address] [place], [place] [id number] Mar, IMMUNIZATIONS No Known Immunizations SOCIAL HISTORY Never Assessed REASON FOR VISIT Constipation, abd crampig, UTI PLAN OF CARE Activity Details Follow Up prn Reason: VITAL SIGNS Weight 206 lbs 2018-01-16 Heart Rate 70 /min 2018-01-16 Temperature 97.1 degrees Fahrenheit 2018-01-16 Height 64 in 2018-01-16 BMI 35.36 kg/m2 2018-01-16 Blood pressure systolic 106 mm Hg 2018-01-16 Blood pressure diastolic 52 mm Hg 2018-01-16 MEDICATIONS Medication Instructions Dosage Frequency Start Date End Date Duration Status Celexa 40 MG Orally Once a day 0.5 tablet 24h Not-Taking Tessalon Perles 100 MG Orally Three times a day 2 capsules as needed 8h Active Multivitamin Adult - Active Claritin 10 TAKE ONE TABLET BY MOUTH DAILY 90 Not-Taking Symbicort 160-4.5 INHALE TWO PUFFS BY MOUTH EVERY 12 HOURS Active Ventolin HFA 108 (90 Base) MCG/ACT Inhalation every 4 hrs 2 puffs as needed 4h Not-Taking Alendronate Sodium 5 MG Orally Once a day 1 tablet 24h May, 30 day(s) Active Benadryl Allergy 25 MG 1 tablet at noon and 2 HS Active Flonase 50 USE ONE SPRAY IN EACH NOSTRIL TWO TIMES A DAY Active Nexium 40 TAKE ONE CAPSULE BY MOUTH DAILY 30 Active Ventolin HFA 90 INHALE ONE TO TWO PUFFS BY MOUTH EVERY 4 HOURS NEEDED FOR SHORTNESS OF BREATH FOR COUGH Active Lisinopril-Hydrochlorothiazide 20-12.5 TAKE TWO TABLETS BY MOUTH TWICE A DAY Active Trazodone HCl 100 MG Orally Once a day 1.5 tablet at bedtime 24h Active Nitrostat 0.4 MG Sublingual prn as directed Jan, Active Linzess 145 MCG PO QD 1 capsule 24h Active MiraLax - as directed Active [place] 5-325 MG Orally every 6 hrs 1 tablet as needed 6h Jun, 10 days Active Albuterol Sulfate (2.5 MG/3ML) 0.083% Inhalation every 4 hrs prn 3 ml Jun, Not-Taking Zantac 150 MG Orally BID 1 tablet 12h Jul, 15 days Not-Taking Meloxicam 7.5 MG Orally BID 1 tablet 12h Active Triamcinolone Acetonide 0.1 APPLY TO AFFECTED AREA(S) TWO TIMES A DAY 30 Not-Taking Loratadine 10 MG Orally Once a day 1 tablet 24h 30 day(s) Active Metoprolol Tartrate 50 TAKE ONE TABLET BY MOUTH TWICE A DAY 30 Active Aspirin Adult Low Dose 81 MG Orally Once a day 1-2 tablet 24h Active RESULTS No Results PROCEDURES [...]
[2018-02-04 20:18] LABS: BASOPHILS % (AUTO) 1 % (0-10); EOSINOPHILS # (AUTO) 0.2 10^3/uL (0.0-0.3); EOSINOPHILS % (AUTO) 6 % (0-10); HEMATOCRIT 31 % (35-52); HEMOGLOBIN 10.3 G/DL (11.5-16.0); LYMPHOCYTES # (AUTO) 0.9 X 10^3 (1.0-4.0); LYMPHOCYTES % (AUTO) 29 % (12-44); MEAN CORPUSCULAR HEMOGLOBIN 29 PG (25-34); MEAN CORPUSCULAR HGB CONC 33 G/DL (32-36); MEAN CORPUSCULAR VOLUME 85 FL (80-99); MEAN PLATELET VOLUME 12.5 FL (7.4-10.4); MONOCYTES # (AUTO) 0.2 X 10^3 (0.0-1.0); MONOCYTES % (AUTO) 8 % (0-12); NEUTROPHILS # (AUTO) 1.8 X 10^3 (1.8-7.8); NEUTROPHILS % (AUTO) 56 % (42-75); PLATELET COUNT 113 10^3/uL (130-400); RED BLOOD COUNT 3.62 10^6/uL (4.35-5.85); WHITE BLOOD COUNT 3.2 10^3/uL (4.3-11.0)
--- OUTSIDE RECORDS SUMMARY | 2018-02-04 20:18 | XMS REPORT ---
Author Author Rogelio Prado Organization [facility] Address [address], [facility] [address] [place], [place] [id number] Care Team Providers Care Forensic Engineer Name Role Phone [place], Rogelio Unavailable PROBLEMS Type Condition ICD9-CM Code [id number] Code Onset Dates Condition Status SNOMED Code Problem COPD (chronic obstructive pulmonary disease) with acute bronchitis J44.0 Active 314126629954005 Problem Nocturnal hypoxia G47.34 Active 795340684 Problem Closed fracture of one rib of right side with routine healing, subsequent encounter S22.31XD Active 71270722 Problem Unspecified constipation K59.00 Active 19419997 Problem BMI 35.0-35.9,adult Z68.35 Active 342372282 Problem Acute sinusitis, unspecified J01.90 Active 90385902 Problem Chronic sinusitis, unspecified J32.9 Active 928958183 Problem Obstructive sleep apnea syndrome G47.33 Active 01171408 Problem Gastritis without bleeding, unspecified chronicity, unspecified gastritis type K29.70 Active 7288298 Problem Hyperlipidemia E78.5 Active 28471257 Problem COPD (chronic obstructive pulmonary disease) J44.9 Active 04874442 Problem Episode of recurrent major depressive disorder, unspecified depression episode severity F33.9 Active 288058422 Problem Intellectual disability F79 Active 57917890 Problem COPD exacerbation J44.1 Active 972374708 Problem Hypertension I10 Active 92124265 Problem Angina pectoris I20.9 Active 809723714 Problem Postmenopausal Z78.0 Active 06076656 Problem Constipation K59.00 Active [id number] ALLERGIES No Information ENCOUNTERS Encounter Location Date Diagnosis [facility] [address], [facility] [address] [place], [place] [id number] Aug, [facility] [address], [address] [place], [place] [id number] Jan, [facility] [address], [facility] [address] [place] [id number] Dec, Acute cystitis without hematuria N30.00 ; Abdominal cramping R10.9 and Unspecified constipation K59.00 [facility] [address] [place] [id number] Dec, [facility] [address], [address] [place] [id number] Dec, [facility] [address], [address] [place] [id number] Dec, [facility] [address], [address] [place] [id number] Dec, Pain with urination R30.9 [facility] [address], [address] [place] [id number] Dec, [facility] [address], [address] [place] [id number] Dec, [facility] [address], [address] [place] [id number] Nov, COPD (chronic obstructive pulmonary disease) J44.9 ; Hypertension I10 and Vaginal discharge N89.8 [facility] [address] [place] [id number] Nov, [facility] [address], [address] [place] [id number] Nov, COPD (chronic obstructive pulmonary disease) J44.9 ; Angina pectoris I20.9 ; Nocturnal hypoxia G47.34 and Hypertension I10 [facility] [address], [address] [place] [id number] Nov, [facility] [address] [place] [id number] October, [facility] [address] [place] [id number] October, [facility] [address] [place] [id number] October, [facility] [address] [place] [id number] October, Hypertension I10 ; COPD (chronic obstructive pulmonary disease) J44.9 ; Hyperlipidemia E78.5 ; COPD exacerbation J44.1 ; Episode of recurrent major depressive disorder, unspecified depression episode severity F33.9 and BMI 35.0- 35.9,adult Z68.35 [facility] [address] [place] [id number] October, [facility] [address] [place] [id number] Sep, [facility] [address] [place] [id number] Sep, [facility] [address] [place] [id number] Sep, Hypertension I10 ; COPD (chronic obstructive pulmonary disease) J44.9 ; Nocturnal hypoxia G47.34 and Obstructive sleep apnea syndrome G47.33 [facility] [address] [place] [id number] Sep, [facility] [address] [place] [id number] Sep, [facility] [address], [address] [place] [id number] Aug, [facility] [address] [place] [id number] Aug, [facility] [address], [address] [place] [id number] Aug, Encounter for screening mammogram for malignant neoplasm of breast Z12.31 ; Tinnitus of right ear H93.11 and Obstructive sleep apnea G47.33 [facility] [address] [place] [id number] Aug, [facility] [address] [place] [id number] Aug, Encounter for Medicare annual wellness exam Z00.00 and Advanced directives , counseling/discussion Z71.89 [facility] [address] [place] [id number] Jul, [facility] [address] [place] [id number] Jul, [facility] [address] [place] [id number] Jul, [facility] [address] [place] [id number] Jul, Right sided abdominal pain R10.9 ; Hypertension I10 ; COPD (chronic obstructive pulmonary disease) J44.9 and Hyperlipidemia E78.5 [facility] [address] [place] [id number] Jul, [facility] [address] [place] [id number] Jul, [facility] [address] [place] [id number] Jul, Acute gastritis without hemorrhage, unspecified gastritis type K29.00 ; Diarrhea, unspecified type R19.7 ; Hypertension I10 ; COPD (chronic obstructive pulmonary disease) J44.9 and Hyperlipidemia E78.5 [facility] [address] [place] [id number] Jul, [facility] [address] [place] [id number] Jun, Acute lower respiratory infection J22 ; Other fatigue R53.83 and History of influenza Z87.09 [facility] [address] [place] [id number] Jun, [facility] [address] [place] [address] Jun, [facility] [address] [place] [id number] Jun, Acute lower respiratory infection J22 ; Other fatigue R53.83 and History of influenza Z87.09 [facility] [address] [place] [id number] Jun, [facility] [address] [place] [id number] Jun, [facility] [address] [place] [address] Jun, [facility] [address] [place] [id number] Jun, [facility] [address] [place] [id number] Jun, [facility] [address] [place] [id number] Jun, Acute pain of left shoulder M25.512 [facility] [address] [place] [id number] Jun, Acute pain of left shoulder M25.512 ; Gastritis without bleeding, unspecified chronicity, unspecified gastritis type K29.70 ; Hypertension I10 ; COPD (chronic obstructive pulmonary disease) J44.9 and Hyperlipidemia E78.5 [facility] [address] [place] [id number] Jun, [facility] [address] [place] [id number] Jun, [facility] [address] [place] [id number] May, [facility] [address] [place] [id number] May, Acute pain of left shoulder M25.512 ; Intellectual disability F79 and Closed fracture of one rib of right side with routine healing, subsequent encounter S22.31XD [facility] [address] [place] [id number] May, [facility] [address] [place] [id number] May, [facility] [address] [place] [address] May, [facility] [address] [place] [id number] May, Acute bronchitis, unspecified organism J20.9 ; Hypertension I10 ; COPD ( chronic obstructive pulmonary disease) J44.9 ; Hyperlipidemia E78.5 ; Nocturnal hypoxia G47.34 and Obstructive sleep apnea syndrome G47.33 [facility] [address] [place] [id number] Apr, Pain with urination R30.9 ; Hypertension I10 ; COPD (chronic obstructive pulmonary disease) J44.9 ; Hyperlipidemia E78.5 and Acute bronchitis, unspecified organism J20.9 [facility] [address] [place] [address] Apr, Hypertension I10 [facility] [address] [place] [id number] Apr, Acute sinusitis, unspecified J01.90 [facility] [address] [place], [place] [id number] Apr, [facility] [address], [address] [place] [id number] Mar, [facility] [address], [address] [place] [id number] Mar, Other specified bacterial agents as the cause of diseases classified elsewhere B96.89 and Acute sinusitis, unspecified J01.90 [facility] [address] [place], [place] [id number] Mar, Closed fracture of one rib of right side with routine healing, subsequent encounter S22.31XD [facility] [address] [place] [address] Mar, [facility] [address], [address] [place] [id number] Mar, COPD (chronic obstructive pulmonary disease) J44.9 ; Closed fracture of one rib of right side with routine healing, subsequent encounter S22.31XD ; Hypertension I10 ; Constipation K59.00 ; Angina pectoris I20.9 ; Depression, unspecified depression type F32.9 and Left ear pain H92.02 [facility] [address] [place], [place] [id number] Mar, Elevated glucose R73.09 [facility] [address] [place] [address] Mar, [facility] [address], [address] [place] [id number] Mar, Left-sided chest wall pain R07.89 and Hypertension I10 [facility] [address], [address] [place] [id number] Feb, [facility] [address] [place] [id number] Feb, Hypertension I10 [facility] [address], [address] [place], [place] [id number] Feb, Closed fracture of one rib of right side, initial encounter S22.31XA ; Intellectual disability F79 ; COPD (chronic obstructive pulmonary disease) J44.9 ; Hyperlipidemia E78.5 and Hypertension I10 [facility] [address] [place] [id number] Feb, [facility] [address], [address] [place] [id number] Feb, Dysuria R30.0 [facility] [address], [address] [place] [id number] Jan, Closed fracture of one rib of right side, initial encounter S22.31XA [facility] [address] [place] [address] Jan, [facility] [address] [place] [address] Jan, [facility] [address] [place] [address] Jan, Contusion of left side of back, initial encounter S20.222A [facility] [address] [place] [id number] Jan, [facility] [address] [place] [id number] Dec, [facility] [address] [place] [address] Dec, [facility] [address] [place] [id number] Dec, COPD (chronic obstructive pulmonary disease) J44.9 and Hypertension I10 [facility] [address] [place] [id number] Dec, [facility] [address] [place] [id number] Dec, [facility] [address] [place] [id number] Dec, Skin irritation R23.8 [facility] [address] [place] [address] Dec, [facility] [address] [place] [id number] Dec, [facility] [address] [place] [address] Dec, [facility] [address] [place] [address] Dec, [facility] [address] [place] [id number] October, Dysuria R30.0 and Pain of left calf M79.662 [facility] [address] [place] [address] October, Pain of right great toe M79.674 and Overgrown toenails L60.2 [facility] [address] [place] [address] Sep, [facility] [address] [place] [address] Sep, [facility] [address] [place] [id number] Sep, Pain with urination R30.9 ; Abdominal pain, unspecified location R10.9 and Loose stools R19.5 [facility] [address] [place] [id number] Sep, Hypertension I10 [facility] [address] [place] [address] Sep, [facility] [address] [place] [id number] Sep, Acute cystitis with hematuria N30.01 [facility] [address] [place] [address] Sep, [facility] [address] [place] [id number] Sep, Urinary frequency R35.0 [facility] [address] [place] [id number] Aug, [facility] [address] [place] [id number] Aug, Screening for breast cancer Z12.39 [facility] [address] [place] [id number] Aug, [facility] [address] [place] [address] Aug, [facility] [address] [place] [id number] Aug, [facility] [address] [place] [address] Aug, [facility] [address] [place] [address] Aug, [facility] [address] [place] [id number] Aug, [facility] [address] [place] [address] Aug, [facility] [address] [place] [address] Aug, [facility] [address] [place] [id number] Jul, Dysuria R30.0 [facility] [address] [place] [id number] Jul, Chest wall pain R07.89 and Myofascial pain M79.1 [facility] [address] [place] [address] Jul, [facility] [address] [place] [id number] Jul, Depression, unspecified depression type F32.9 ; Chronic obstructive pulmonary disease, unspecified COPD type J44.9 ; Hypertension I10 ; Angina pectoris I20.9 and Costochondritis M94.0 [facility] [address] [place] [id number] Jun, Acute non-recurrent maxillary sinusitis J01.00 [facility] [address] [place] [id number] Jun, [facility] [address] [place] [id number] Jun, [facility] [address] [place] [address] Jun, [facility] [address] [place] [address] Jun, [facility] [address] [place] [id number] Jun, [facility] [address] [place] [id number] Jun, Left-sided chest wall pain R07.89 and Cough due to bronchospasm J98.01 [facility] [address] [place] [address] Jun, [facility] [address] [place] [id number] May, [facility] [address] [place] [id number] May, Left-sided chest wall pain R07.89 [facility] [address] [place] [id number] May, Left-sided chest wall pain R07.89 and Cough due to bronchospasm J98.01 [facility] [address] [place] [id number] May, [facility] [address], [address] [place], [place] [id number] May, Encounter for Medicare annual wellness exam Z00.00 ; Advanced directives, counseling/discussion Z71.89 ; Screening for osteoporosis Z13.820 ; Bilateral hearing loss, unspecified hearing loss type H91.93 ; Intellectual disability F79 ; COPD (chronic obstructive pulmonary disease) J44.9 ; Postmenopausal Z78.0 ; Hypertension I10 ; Hyperlipidemia E78.5 ; Constipation K59.00 and Angina pectoris I20.9 [facility] [address], [address] [place] [id number] May, [facility] [address], [address] [place] [id number] May, Left-sided chest wall pain R07.89 and Chest wall contusion, left, initial encounter S20.212A [address], [facility] [address] [place], [place] [id number] May, Dog bite, subsequent encounter W54.0XXD [address] [place] [id number] May, Open bite of right hand, initial encounter S61.451A and Bitten by dog, initial encounter W54.0XXA [address], [address] [place] [id number] May, [facility] [address], [facility] [address] [place] [id number] May, [facility] [address], [address] [place] [id number] Apr, Chest congestion R09.89 ; COPD exacerbation J44.1 and Dermatitis L30.[address], [facility] [address] [place] [id number] Apr, Secondary infection of skin L08.89 and Keratotic lesion L57.[address], [address] [place] [address] Mar, Hypertension I10 ; Bronchitis J40 and Cough R05 [address], [facility] [address] [place], [place] [id number] Feb, [facility] [address], [address] [place] [id number] Feb, Skin tag L91.[address], [facility] [address] [place] [id number] Dec, Dysuria R30.0 and Vaginitis N76.[address], [facility] [address] [place], [place] [id number] Dec, Constipation K59.00 ; Hypertension I10 ; Bronchitis J40 ; Post-tussive emesis R11.10 and Cough R05 [address], [address] [place], [place] [address] Dec, [address], [address] [place] [id number] Nov, Constipation K59.00 and Bronchitis J40 [address] [place] [id number] Nov, [address] [place] [id number] October, Dysuria R30.[address] [id number] October, Urinary frequency R35.0 and UTI (urinary tract infection) N39.[address] [place], [place] [id number] Sep, Intellectual disability F79 ; COPD (chronic obstructive pulmonary disease ) J44.9 ; Postmenopausal Z78.0 ; Hypertension I10 and Hyperlipidemia E78.[address], [facility] [address] [place], [place] [id number] Aug, Pain with urination R30.9 ; Wrist pain, left M25.532 and Pain in scapula M89.8X1 [address] [id number] Jul, Pain with urination R30.9 and Vaginitis N76.[address] [place] [id number] Jul, Screening for breast cancer Z12.[address] [place], [place] [id number] Jul, Acute upper respiratory infection, unspecified J06.9 and Other viral agents as the cause of diseases classified elsewhere B97.[address] [place] [id number] Jun, Cellulitis L03.[address] [id number] Jun, Gastritis 535.50 ; URI (upper respiratory infection) J06.9 and Ingrown toenail L60.[address] [id number] Apr, Gastritis 535.50 and Oral lesion K13.70 [facility] [address] [place] [id number] Mar, Dysuria R30.0 and Pain of right scapula M89.8X1 [facility] [address] [place] [id number] Mar, [facility] [address] [place] [id number] Mar, [facility] [address] [place] [address] Feb, Right knee pain 719.46 [facility] [address] [place], [place] [id number] Feb, [facility] [address] [place] [id number] Feb, Right knee pain 719.46 [facility] [address] [place] [id number] Jan, Allergic rhinitis 477.9 and Cough 786.2 [facility] [address] [place] [id number] Jan, [facility] [address] [place] [id number] Jan, Insect bites 919.4 [facility] [address] [place] [id number] Jan, Fatigue 780.79 ; Gastritis 535.50 and Wound abscess 879.9 [facility] [address] [place] [address] Dec, [facility] [address] [place] [id number] Nov, Fatigue 780.79 ; Weakness generalized 780.79 and Gastritis 535.50 [facility] [address] [place] [address] Nov, [facility] [address] [place] [id number] October, [facility] [address] [place] [id number] October, [facility] [address] [place] [address] October, [facility] [address] [place] [address] October, [facility] [address] [place] [id number] Sep, [facility] [address] [place] [id number] Sep, [facility] [address] [place] [id number] Sep, [facility] [address] [place] [address] Aug, [facility] [address] [place] [address] Aug, [facility] [address] [place] [address] Jul, [facility] [address] [place] [address] Jul, [facility] [address] [place] [id number] May, [facility] [address] [place] [id number] May, [facility] [address] [place] [address] Apr, [facility] [address] [place] [id number] Mar, [facility] [address] [place] [id number] Mar, [facility] [address] [place] [id number] Feb, [facility] [address] [place] [address] Jan, [facility] [address] [place], [place] [id number] Jan, [facility] [address] [place] [address] Nov, [facility] [address] [place], [place] [id number] October, [facility] [address] [place], [place] [id number] October, [facility] [address] [place], [place] [address] Sep, [facility] [address] [place] [address] Aug, [facility] [address] [place], [place] [id number] Jul, [facility] [address] [place] [id number] Jun, [facility] [address] [place] [id number] May, [facility] [address] [place] [id number] Mar, [facility] [address] [place] [id number] Mar, [facility] [address] [place] [address] Jan, [facility] [address] [place] [id number] Dec, [facility] [address] [place] [address] Nov, [facility] [address] [place] [address] October, [facility] [address] [place] [address] Aug, [facility] [address] [place] [id number] Jul, [facility] [address] [place] [address] Jun, [facility] [address] [place] [id number] Jun, [facility] [address] [place] [id number] Jun, [facility] [address] [place] [address] May, [facility] [address] [place] [id number] Apr, [facility] [address] [place] [address] Mar, [facility] [address] [place] [address] Mar, [facility] [address] [place] [id number] Mar, IMMUNIZATIONS No Known Immunizations SOCIAL HISTORY Never Assessed REASON FOR VISIT home health will check on them.. PLAN OF CARE VITAL SIGNS MEDICATIONS Unknown [...]
--- OUTSIDE RECORDS SUMMARY | 2018-02-04 20:18 | XMS REPORT ---
Author Author Rogelio Prado Organization [facility] Address [address], [facility] [address] [place], [place] [id number] Care Team Providers Care Shuttle Filler Name Role Phone Randolph, Rogelio Unavailable PROBLEMS Type Condition ICD9-CM Code [id number] Code Onset Dates Condition Status SNOMED Code Problem COPD (chronic obstructive pulmonary disease) with acute bronchitis J44.0 Active [id number] Problem Nocturnal hypoxia G47.34 Active 033076936 Problem Closed fracture of one rib of right side with routine healing, subsequent encounter S22.31XD Active 77262931 Problem Unspecified constipation K59.00 Active 47196907 Problem BMI 35.0-35.9,adult Z68.35 Active 318242363 Problem Acute sinusitis, unspecified J01.90 Active 99189060 Problem Chronic sinusitis, unspecified J32.9 Active 004751077 Problem Obstructive sleep apnea syndrome G47.33 Active 94201067 Problem Gastritis without bleeding, unspecified chronicity, unspecified gastritis type K29.70 Active 9815495 Problem Hyperlipidemia E78.5 Active 00904490 Problem COPD (chronic obstructive pulmonary disease) J44.9 Active 52469382 Problem Episode of recurrent major depressive disorder, unspecified depression episode severity F33.9 Active 231721555 Problem Intellectual disability F79 Active 35887626 Problem COPD exacerbation J44.1 Active 107694636 Problem Hypertension I10 Active 53817803 Problem Angina pectoris I20.9 Active 779212072 Problem Postmenopausal Z78.0 Active 78009366 Problem Constipation K59.00 Active [id number] ALLERGIES No Information ENCOUNTERS Encounter Location Date Diagnosis [facility] [address], [facility] [address] [place], [place] [id number] Aug, [facility] [address], [address] [place] [id number] Jan, [facility] [address], [facility] [address] [place], [place] [id number] Dec, Acute cystitis without hematuria N30.00 ; Abdominal cramping R10.9 and Unspecified constipation K59.00 [facility] [address], [address] [place] [id number] Dec, [facility] [address], [address] [place] [id number] Dec, [facility] [address], [address] [place] [id number] Dec, [facility] [address], [address] [place] [id number] Dec, Pain with urination R30.9 [facility] [address], [address] [place] [address] Dec, [facility] [address], [address] [place] [id number] Dec, [facility] [address], [address] [place] [id number] Nov, COPD (chronic obstructive pulmonary disease) J44.9 ; Hypertension I10 and Vaginal discharge N89.8 [facility] [address], [address] [place] [id number] Nov, [facility] [address], [address] [place] [id number] Nov, COPD (chronic obstructive pulmonary disease) J44.9 ; Angina pectoris I20.9 ; Nocturnal hypoxia G47.34 and Hypertension I10 [facility] [address], [address] [place] [id number] Nov, [facility] [address], [address] [place] [address] October, [facility] [address], [address] [place] [id number] October, [facility] [address], [address] [place] [address] October, [facility] [address], [address] [place] [address] October, Hypertension I10 ; COPD (chronic obstructive pulmonary disease) J44.9 ; Hyperlipidemia E78.5 ; COPD exacerbation J44.1 ; Episode of recurrent major depressive disorder, unspecified depression episode severity F33.9 and BMI 35.0- 35.9,adult Z68.35 [facility] [address], [address] [place] [address] October, [facility] [address], [address] [place] [address] Sep, [facility] [address], [address] [place] [id number] Sep, [facility] [address], [address] [place] [id number] Sep, Hypertension I10 ; COPD (chronic obstructive pulmonary disease) J44.9 ; Nocturnal hypoxia G47.34 and Obstructive sleep apnea syndrome G47.33 [facility] [address], [address] [place] [id number] Sep, [facility] [address], [address] [place] [address] Sep, [facility] [address], [address] [place] [id number] Aug, [facility] [address], [address] [place] [id number] Aug, [facility] [address], [address] [place] [address] Aug, Encounter for screening mammogram for malignant neoplasm of breast Z12.31 ; Tinnitus of right ear H93.11 and Obstructive sleep apnea G47.33 [facility] [address], [address] [place] [id number] Aug, [facility] [address], [address] [place], [place] [id number] Aug, Encounter for Medicare annual wellness exam Z00.00 and Advanced directives , counseling/discussion Z71.89 [facility] [address], [address] [place] [id number] Jul, [facility] [address], [address] [place] [id number] Jul, [facility] [address] [place] [id number] Jul, [facility] [address], [address] [place] [id number] Jul, Right sided abdominal pain R10.9 ; Hypertension I10 ; COPD (chronic obstructive pulmonary disease) J44.9 and Hyperlipidemia E78.5 [facility] [address], [address] [place] [address] Jul, [facility] [address] [place] [id number] Jul, [facility] [address] [place] [id number] Jul, Acute gastritis without hemorrhage, unspecified gastritis type K29.00 ; Diarrhea, unspecified type R19.7 ; Hypertension I10 ; COPD (chronic obstructive pulmonary disease) J44.9 and Hyperlipidemia E78.5 [facility] [address] [place] [id number] Jul, [facility] [address], [address] [place] [id number] Jun, Acute lower respiratory infection J22 ; Other fatigue R53.83 and History of influenza Z87.09 [facility] [address] [place] [address] Jun, [facility] [address] [place] [address] Jun, [facility] [address] [place] [address] Jun, Acute lower respiratory infection J22 ; Other fatigue R53.83 and History of influenza Z87.09 [facility] [address] [place] [address] Jun, [facility] [address] [place] [address] Jun, [facility] [address] [place] [id number] Jun, [facility] [address] [place] [address] Jun, [facility] [address] [place] [address] Jun, [facility] [address] [place] [address] Jun, Acute pain of left shoulder M25.512 [facility] [address] [place] [address] Jun, Acute pain of left shoulder M25.512 ; Gastritis without bleeding, unspecified chronicity, unspecified gastritis type K29.70 ; Hypertension I10 ; COPD (chronic obstructive pulmonary disease) J44.9 and Hyperlipidemia E78.5 [facility] [address] [place] [address] Jun, [facility] [address] [place] [address] Jun, [facility] [address] [place] [address] May, [facility] [address] [place] [address] May, Acute pain of left shoulder M25.512 ; Intellectual disability F79 and Closed fracture of one rib of right side with routine healing, subsequent encounter S22.31XD [facility] [address] [place] [id number] May, [facility] [address] [place] [address] May, [facility] [address] [place] [address] May, [facility] [address], [address] [place] [address] May, Acute bronchitis, unspecified organism J20.9 ; Hypertension I10 ; COPD ( chronic obstructive pulmonary disease) J44.9 ; Hyperlipidemia E78.5 ; Nocturnal hypoxia G47.34 and Obstructive sleep apnea syndrome G47.33 [facility] [address] [place] [address] Apr, Pain with urination R30.9 ; Hypertension I10 ; COPD (chronic obstructive pulmonary disease) J44.9 ; Hyperlipidemia E78.5 and Acute bronchitis, unspecified organism J20.9 [facility] [address], [address] [place] [address] Apr, Hypertension I10 [facility] [address], [address] [place] [address] Apr, Acute sinusitis, unspecified J01.90 [facility] [address], [address] [place] [address] Apr, [facility] [address], [address] [place] [address] Mar, [facility] [address], [address] [place] [id number] Mar, Other specified bacterial agents as the cause of diseases classified elsewhere B96.89 and Acute sinusitis, unspecified J01.90 [facility] [address], [address] [place] [address] Mar, Closed fracture of one rib of right side with routine healing, subsequent encounter S22.31XD [facility] [address], [address] [place] [address] Mar, [facility] [address], [address] [place] [address] Mar, COPD (chronic obstructive pulmonary disease) J44.9 ; Closed fracture of one rib of right side with routine healing, subsequent encounter S22.31XD ; Hypertension I10 ; Constipation K59.00 ; Angina pectoris I20.9 ; Depression, unspecified depression type F32.9 and Left ear pain H92.02 [facility] [address] [place] [address] Mar, Elevated glucose R73.09 [facility] [address] [place] [address] Mar, [facility] [address], [address] [place] [id number] Mar, Left-sided chest wall pain R07.89 and Hypertension I10 [facility] [address], [address] [place] [address] Feb, [facility] [address], [address] [place] [address] Feb, Hypertension I10 [facility] [address], [address] [place] [address] Feb, Closed fracture of one rib of right side, initial encounter S22.31XA ; Intellectual disability F79 ; COPD (chronic obstructive pulmonary disease) J44.9 ; Hyperlipidemia E78.5 and Hypertension I10 [facility] [address], [address] [place] [address] Feb, [facility] [address] [place] [address] Feb, Dysuria R30.0 [facility] [address], [address] [place] [address] Jan, Closed fracture of one rib of right side, initial encounter S22.31XA [facility] [address] [place] [address] Jan, [facility] [address] [place] [address] Jan, [facility] [address], [address] [place] [address] Jan, Contusion of left side of back, initial encounter S20.222A [facility] [address] [place] [address] Jan, [facility] [address] [place] [address] Dec, [facility] [address] [place] [address] Dec, [facility] [address] [place] [address] Dec, COPD (chronic obstructive pulmonary disease) J44.9 and Hypertension I10 [facility] [address], [address] [place] [address] Dec, [facility] [address] [place] [address] Dec, [facility] [address], [address] [place] [address] Dec, Skin irritation R23.8 [facility] [address] [place] [address] Dec, [facility] [address] [place] [address] Dec, [facility] [address] [place] [address] Dec, [facility] [address] [place] [address] Dec, [facility] [address], [address] [place] [address] October, Dysuria R30.0 and Pain of left calf M79.662 [facility] [address] [place] [address] October, Pain of right great toe M79.674 and Overgrown toenails L60.2 [facility] [address] [place] [address] Sep, [facility] [address] [place] [address] Sep, [facility] [address] [place] [address] Sep, Pain with urination R30.9 ; Abdominal pain, unspecified location R10.9 and Loose stools R19.5 [facility] [address] [place] [address] Sep, Hypertension I10 [facility] [address] [place] [address] Sep, [facility] [address], [address] [place] [address] Sep, Acute cystitis with hematuria N30.01 [facility] [address] [place] [address] Sep, [facility] [address] [place] [address] Sep, Urinary frequency R35.0 [facility] [address] [place] [address] Aug, [facility] [address] [place] [address] Aug, Screening for breast cancer Z12.39 [facility] [address] [place] [address] Aug, [facility] [address] [place] [address] Aug, [facility] [address] [place] [address] Aug, [facility] [address] [place] [address] Aug, [facility] [address] [place] [address] Aug, [facility] [address] [place] [address] Aug, [facility] [address] [place] [address] Aug, [facility] [address] [place] [address] Aug, [facility] [address] [place] [id number] Jul, Dysuria R30.0 [facility] [address] [place] [address] Jul, Chest wall pain R07.89 and Myofascial pain M79.1 [facility] [address] [place] [address] Jul, [facility] [address], [address] [place] [address] Jul, Depression, unspecified depression type F32.9 ; Chronic obstructive pulmonary disease, unspecified COPD type J44.9 ; Hypertension I10 ; Angina pectoris I20.9 and Costochondritis M94.0 [facility] [address], [address] [place] [address] Jun, Acute non-recurrent maxillary sinusitis J01.00 [facility] [address] [place] [address] Jun, [facility] [address] [place] [address] Jun, [facility] [address] [place] [address] Jun, [facility] [address] [place] [address] Jun, [facility] [address] [place] [address] Jun, [facility] [address] [place] [address] Jun, Left-sided chest wall pain R07.89 and Cough due to bronchospasm J98.01 [facility] [address] [place] [address] Jun, [facility] [address] [place] [address] May, [facility] [address] [place] [address] May, Left-sided chest wall pain R07.89 [facility] [address] [place] [address] May, Left-sided chest wall pain R07.89 and Cough due to bronchospasm J98.01 [facility] [address], [address] [place] [address] May, [facility] [address], [address] [place] [address] May, Encounter for Medicare annual wellness exam Z00.00 ; Advanced directives, counseling/discussion Z71.89 ; Screening for osteoporosis Z13.820 ; Bilateral hearing loss, unspecified hearing loss type H91.93 ; Intellectual disability F79 ; COPD (chronic obstructive pulmonary disease) J44.9 ; Postmenopausal Z78.0 ; Hypertension I10 ; Hyperlipidemia E78.5 ; Constipation K59.00 and Angina pectoris I20.9 [facility] [address], [address] [place] [address] May, [facility] [address], [address] [place] [address] May, Left-sided chest wall pain R07.89 and Chest wall contusion, left, initial encounter S20.212A [address], [facility] [address] [place] [address] May, Dog bite, subsequent encounter W54.0XXD [address] [place] [id number] May, Open bite of right hand, initial encounter S61.451A and Bitten by dog, initial encounter W54.0XXA [address], [address] [place] [address] May, [facility] [address], [facility] [address] [place] [address] May, [facility] [address], [address] [place] [id number] Apr, Chest congestion R09.89 ; COPD exacerbation J44.1 and Dermatitis L30.[address], [facility] [address] [place] [address] Apr, Secondary infection of skin L08.89 and Keratotic lesion L57.[address], [address] [place] [address] Mar, Hypertension I10 ; Bronchitis J40 and Cough R05 [address], [facility] [address] [place] [id number] Feb, [facility] [address], [address] [place] [address] Feb, Skin tag L91.[address], [facility] [address] [place] [address] Dec, Dysuria R30.0 and Vaginitis N76.[address], [facility] [address] [place] [address] Dec, Constipation K59.00 ; Hypertension I10 ; Bronchitis J40 ; Post-tussive emesis R11.10 and Cough R05 [address], [address] [place] [id number] Dec, [address], [address] [place] [address] Nov, Constipation K59.00 and Bronchitis J40 [address] [place] [address] Nov, [address] [place] [address] October, Dysuria R30.[address] [id number] October, Urinary frequency R35.0 and UTI (urinary tract infection) N39.[address] [place] [address] Sep, Intellectual disability F79 ; COPD (chronic obstructive pulmonary disease ) J44.9 ; Postmenopausal Z78.0 ; Hypertension I10 and Hyperlipidemia E78.[address], [facility] [address] [place] [address] Aug, Pain with urination R30.9 ; Wrist pain, left M25.532 and Pain in scapula M89.8X1 [address] [id number] Jul, Pain with urination R30.9 and Vaginitis N76.[address] [place] [address] Jul, Screening for breast cancer Z12.[address] [place] [address] Jul, Acute upper respiratory infection, unspecified J06.9 and Other viral agents as the cause of diseases classified elsewhere B97.[address] [place] [address] Jun, Cellulitis L03.[address] [id number] Jun, Gastritis 535.50 ; URI (upper respiratory infection) J06.9 and Ingrown toenail L60.[address] [id number] Apr, Gastritis 535.50 and Oral lesion K13.70 [facility] [address] [place] [address] Mar, Dysuria R30.0 and Pain of right scapula M89.8X1 [facility] [address] [place] [address] Mar, [facility] [address] [place] [id number] Mar, [facility] [address], [address] [place] [address] Feb, Right knee pain 719.46 [facility] [address] [place] [id number] Feb, [facility] [address] [place] [address] Feb, Right knee pain 719.46 [facility] [address] [place] [address] Jan, Allergic rhinitis 477.9 and Cough 786.2 [facility] [address] [place] [address] Jan, [facility] [address] [place] [address] Jan, Insect bites 919.4 [facility] [address] [place] [address] Jan, Fatigue 780.79 ; Gastritis 535.50 and Wound abscess 879.9 [facility] [address] [place] [address] Dec, [facility] [address] [place] [address] Nov, Fatigue 780.79 ; Weakness generalized 780.79 and Gastritis 535.50 [facility] [address] [place] [id number] Nov, [facility] [address] [place] [id number] October, [facility] [address] [place] [address] October, [facility] [address] [place] [address] October, [facility] [address] [place] [id number] October, [facility] [address] [place] [address] Sep, [facility] [address] [place] [address] Sep, [facility] [address] [place] [address] Sep, [facility] [address] [place] [address] Aug, [facility] [address] [place] [address] Aug, [facility] [address] [place] [address] Jul, [facility] [address] [place] [address] Jul, [facility] [address] [place] [address] May, [facility] [address] [place] [address] May, [facility] [address] [place] [address] Apr, [facility] [address] [place] [address] Mar, [facility] [address] [place] [address] Mar, [facility] [address] [place] [address] Feb, [facility] [address] [place] [address] Jan, [facility] [address] [place], [place] [address] Jan, [facility] [address] [place] [address] Nov, [facility] [address] [place] [address] October, [facility] [address] [place] [address] October, [facility] [address] [place] [address] Sep, [facility] [address] [place] [address] Aug, [facility] [address] [place] [address] Jul, [facility] [address] [place] [address] Jun, [facility] [address] [place] [address] May, [facility] [address] [place] [address] Mar, [facility] [address] [place] [address] Mar, [facility] [address] [place] [address] Jan, [facility] [address] [place] [address] Dec, [facility] [address] [place] [id number] Nov, [facility] [address] [place] [id number] October, [facility] [address] [place] [address] Aug, [facility] [address] [place] [address] Jul, [facility] [address] [place] [address] Jun, [facility] [address] [place] [address] Jun, [facility] [address] [place] [address] Jun, [facility] [address] [place] [address] May, [facility] [address] [place] [address] Apr, [facility] [address] [place] [id number] Mar, [facility] [address] [place] [address] Mar, [facility] [address] [place] [id number] Mar, IMMUNIZATIONS No Known Immunizations SOCIAL HISTORY Never Assessed REASON FOR VISIT er f/u constipation PLAN OF CARE VITAL SIGNS MEDICATIONS Unknown [...]
--- OUTSIDE RECORDS SUMMARY | 2018-02-04 20:19 | XMS REPORT ---
Author Author Rogelio Prado Organization [facility] Address [address], [address] [place], [place] [id number] Care Team Providers Care Ranch Manager Name Role Phone Wonder LakeRogelio valadez Unavailable PROBLEMS Type Condition ICD9-CM Code [id number] Code Onset Dates Condition Status SNOMED Code Problem Constipation K59.00 Active 12057866 Problem Closed fracture of one rib of right side with routine healing, subsequent encounter S22.31XD Active 17610046 Problem COPD (chronic obstructive pulmonary disease) with acute bronchitis J44.0 Active 841059180612799 Problem BMI 35.0-35.9,adult Z68.35 Active 799831829 Problem Obstructive sleep apnea syndrome G47.33 Active 73181243 Problem Chronic sinusitis, unspecified J32.9 Active 627946846 Problem Nocturnal hypoxia G47.34 Active 942989117 Problem Gastritis without bleeding, unspecified chronicity, unspecified gastritis type K29.70 Active 6513629 Problem Acute sinusitis, unspecified J01.90 Active 91279770 Problem Episode of recurrent major depressive disorder, unspecified depression episode severity F33.9 Active 153945111 Problem Hyperlipidemia E78.5 Active 82883143 Problem Postmenopausal Z78.0 Active 43927255 Problem Intellectual disability F79 Active 72206462 Problem COPD (chronic obstructive pulmonary disease) J44.9 Active 80659058 Problem COPD exacerbation J44.1 Active 352695682 Problem Hypertension I10 Active 35281652 Problem Angina pectoris I20.9 Active 536811406 ALLERGIES No Information ENCOUNTERS Encounter Location Date Diagnosis [facility] [address] [place], [place] [id number] Aug, [facility] [address] [place], [place] [id number] Jan, [facility] [address] [place] [id number] Dec, [facility] [address] [place] [id number] Dec, [facility] [address] [place] [id number] Nov, COPD (chronic obstructive pulmonary disease) J44.9 ; Hypertension I10 and Vaginal discharge N89.8 [facility] [address] [place] [id number] Nov, [facility] [address] [place] [id number] Nov, COPD (chronic obstructive pulmonary disease) J44.9 ; Angina pectoris I20.9 ; Nocturnal hypoxia G47.34 and Hypertension I10 [facility] [address] [place] [id number] Nov, [facility] [address] [place] [id number] October, [facility] [address] [place] [id number] October, [facility] [address] [place] [id number] October, [facility] [address] [place] [id number] October, Hypertension I10 ; COPD (chronic obstructive pulmonary disease) J44.9 ; Hyperlipidemia E78.5 ; COPD exacerbation J44.1 ; Episode of recurrent major depressive disorder, unspecified depression episode severity F33.9 and BMI 35.0- 35.9,adult Z68.35 [facility] [address] [place] [id number] October, [facility] [address] [place] [id number] Sep, [facility] [address] [place] [id number] Sep, [facility] [address] [place] [id number] Sep, Hypertension I10 ; COPD (chronic obstructive pulmonary disease) J44.9 ; Nocturnal hypoxia G47.34 and Obstructive sleep apnea syndrome G47.33 [facility] [address] [place] [id number] Sep, [facility] [address] [place] [id number] Sep, [facility] [address] [place] [id number] Aug, [facility] [address] [place] [id number] Aug, [facility] [address] [place] [id number] Aug, Encounter for screening mammogram for malignant neoplasm of breast Z12.31 ; Tinnitus of right ear H93.11 and Obstructive sleep apnea G47.33 [facility] [address] [place] [id number] Aug, [facility] [address] [place] [id number] Aug, Encounter for Medicare annual wellness exam Z00.00 and Advanced directives , counseling/discussion Z71.89 [facility] [address] [place] [id number] Jul, [facility] [address] [place] [id number] Jul, [facility] [address] [place] [id number] Jul, [facility] [address] [place] [id number] Jul, Right sided abdominal pain R10.9 ; Hypertension I10 ; COPD (chronic obstructive pulmonary disease) J44.9 and Hyperlipidemia E78.5 [facility] [address] [place] [id number] Jul, [facility] [address] [place] [id number] Jul, [facility] [address] [place] [id number] Jul, Acute gastritis without hemorrhage, unspecified gastritis type K29.00 ; Diarrhea, unspecified type R19.7 ; Hypertension I10 ; COPD (chronic obstructive pulmonary disease) J44.9 and Hyperlipidemia E78.5 [facility] [address] [place] [id number] Jul, [facility] [address] [place] [address] Jun, Acute lower respiratory infection J22 ; Other fatigue R53.83 and History of influenza Z87.09 [facility] [address] [place] [id number] Jun, [facility] [address] [place] [id number] Jun, [facility] [address] [place] [id number] Jun, Acute lower respiratory infection J22 ; Other fatigue R53.83 and History of influenza Z87.09 [facility] [address] [place] [id number] Jun, [facility] [address] [place] [id number] Jun, [facility] [address] [place] [id number] Jun, [facility] [address] [place] [id number] Jun, [facility] [address] [place] [id number] Jun, [facility] [address] [place] [id number] Jun, Acute pain of left shoulder M25.512 [facility] [address] [place] [id number] Jun, Acute pain of left shoulder M25.512 ; Gastritis without bleeding, unspecified chronicity, unspecified gastritis type K29.70 ; Hypertension I10 ; COPD (chronic obstructive pulmonary disease) J44.9 and Hyperlipidemia E78.5 [facility] [address] [place] [id number] Jun, [facility] [address] [place] [id number] Jun, [facility] [address] [place] [address] May, [facility] [address] [place] [id number] May, Acute pain of left shoulder M25.512 ; Intellectual disability F79 and Closed fracture of one rib of right side with routine healing, subsequent encounter S22.31XD [facility] [address] [place] [id number] May, [facility] [address] [place] [id number] May, [facility] [address] [place] [id number] May, [facility] [address] [place] [address] May, Acute bronchitis, unspecified organism J20.9 ; Hypertension I10 ; COPD ( chronic obstructive pulmonary disease) J44.9 ; Hyperlipidemia E78.5 ; Nocturnal hypoxia G47.34 and Obstructive sleep apnea syndrome G47.33 [facility] [address] [place] [id number] Apr, Pain with urination R30.9 ; Hypertension I10 ; COPD (chronic obstructive pulmonary disease) J44.9 ; Hyperlipidemia E78.5 and Acute bronchitis, unspecified organism J20.9 [facility] [address] [place] [id number] Apr, Hypertension I10 [facility] [address] [place] [id number] Apr, Acute sinusitis, unspecified J01.90 [facility] [address] [place] [id number] Apr, [facility] [address] [place] [id number] Mar, [facility] [address] [place], [place] [id number] Mar, Other specified bacterial agents as the cause of diseases classified elsewhere B96.89 and Acute sinusitis, unspecified J01.90 [facility] [address] [place], [place] [id number] Mar, Closed fracture of one rib of right side with routine healing, subsequent encounter S22.31XD [facility] [address] [place], [place] [id number] Mar, [facility] [address] [place], [place] [id number] Mar, COPD (chronic obstructive pulmonary disease) J44.9 ; Closed fracture of one rib of right side with routine healing, subsequent encounter S22.31XD ; Hypertension I10 ; Constipation K59.00 ; Angina pectoris I20.9 ; Depression, unspecified depression type F32.9 and Left ear pain H92.02 [facility] [address] [place], [place] [id number] Mar, Elevated glucose R73.09 [facility] [address] [place] [id number] Mar, [facility] [address] [place] [id number] Mar, Left-sided chest wall pain R07.89 and Hypertension I10 [facility] [address] [place], [place] [id number] Feb, [facility] [address] [place] [id number] Feb, Hypertension I10 [facility] [address] [place], [place] [id number] Feb, Closed fracture of one rib of right side, initial encounter S22.31XA ; Intellectual disability F79 ; COPD (chronic obstructive pulmonary disease) J44.9 ; Hyperlipidemia E78.5 and Hypertension I10 [facility] [address] [place] [id number] Feb, [facility] [address] [place] [id number] Feb, Dysuria R30.0 [facility] [address] [place] [id number] Jan, Closed fracture of one rib of right side, initial encounter S22.31XA [facility] [address] [place] [id number] Jan, [facility] [address] [place] [id number] Jan, [facility] [address] [place] [id number] Jan, Contusion of left side of back, initial encounter S20.222A [facility] [address] [place] [id number] Jan, [facility] [address] [place] [id number] Dec, [facility] [address] [place] [id number] Dec, [facility] [address] [place] [id number] Dec, COPD (chronic obstructive pulmonary disease) J44.9 and Hypertension I10 [facility] [address] [place] [id number] Dec, [facility] [address] [place] [id number] Dec, [facility] [address] [place] [id number] Dec, Skin irritation R23.8 [facility] [address] [place] [id number] Dec, [facility] [address] [place] [id number] Dec, [facility] [address] [place] [address] Dec, [facility] [address] [place] [id number] Dec, [facility] [address] [place] [id number] October, Dysuria R30.0 and Pain of left calf M79.662 [facility] [address] [place] [id number] October, Pain of right great toe M79.674 and Overgrown toenails L60.2 [facility] [address] [place] [id number] Sep, [facility] [address] [place] [id number] Sep, [facility] [address] [place] [address] Sep, Pain with urination R30.9 ; Abdominal pain, unspecified location R10.9 and Loose stools R19.5 [facility] [address] [place] [id number] Sep, Hypertension I10 [facility] [address] [place] [id number] Sep, [facility] [address] [place] [address] Sep, Acute cystitis with hematuria N30.01 [facility] [address] [place] [id number] Sep, [facility] [address] [place] [address] Sep, Urinary frequency R35.0 [facility] [address] [place] [id number] Aug, [facility] [address] [place] [id number] Aug, Screening for breast cancer Z12.39 [facility] [address] [place], [place] [id number] Aug, [facility] [address] [place] [id number] Aug, [facility] [address] [place] [id number] Aug, [facility] [address] [place] [address] Aug, [facility] [address] [place] [id number] Aug, [facility] [address] [place] [address] Aug, [facility] [address] [place] [id number] Aug, [facility] [address] [place] [id number] Aug, [facility] [address] [place] [id number] Jul, Dysuria R30.0 [facility] [address] [place] [id number] Jul, Chest wall pain R07.89 and Myofascial pain M79.1 [facility] [address] [place] [id number] Jul, [facility] [address] [place] [id number] Jul, Depression, unspecified depression type F32.9 ; Chronic obstructive pulmonary disease, unspecified COPD type J44.9 ; Hypertension I10 ; Angina pectoris I20.9 and Costochondritis M94.0 [facility] [address] [place], [place] [id number] Jun, Acute non-recurrent maxillary sinusitis J01.00 [facility] [address] [place], [place] [id number] Jun, [facility] [address] [place] [id number] Jun, [facility] [address] [place] [address] Jun, [facility] [address] [place] [id number] Jun, [facility] [address] [place] [address] Jun, [facility] [address] [place] [id number] Jun, Left-sided chest wall pain R07.89 and Cough due to bronchospasm J98.01 [facility] [address] [place] [id number] Jun, [facility] [address] [place] [id number] May, [facility] [address] [place] [id number] May, Left-sided chest wall pain R07.89 [facility] [address] [place] [id number] May, Left-sided chest wall pain R07.89 and Cough due to bronchospasm J98.01 [facility] [address] [place] [id number] May, [facility] [address] [place] [id number] May, Encounter for Medicare annual wellness exam Z00.00 ; Advanced directives, counseling/discussion Z71.89 ; Screening for osteoporosis Z13.820 ; Bilateral hearing loss, unspecified hearing loss type H91.93 ; Intellectual disability F79 ; COPD (chronic obstructive pulmonary disease) J44.9 ; Postmenopausal Z78.0 ; Hypertension I10 ; Hyperlipidemia E78.5 ; Constipation K59.00 and Angina pectoris I20.9 [facility] [address] [place] [id number] May, [facility] [address] [place] [id number] May, Left-sided chest wall pain R07.89 and Chest wall contusion, left, initial encounter S20.212A [facility] [address] [place], [place] [id number] May, Dog bite, subsequent encounter W54.0XXD [facility] [address] [place] [id number] May, Open bite of right hand, initial encounter S61.451A and Bitten by dog, initial encounter W54.0XXA [facility] [address] [place] [id number] May, [facility] [address] [place] [id number] May, [facility] [address] [place] [id number] Apr, Chest congestion R09.89 ; COPD exacerbation J44.1 and Dermatitis L30.9 [facility] [address] [place], [place] [id number] Apr, Secondary infection of skin L08.89 and Keratotic lesion L57.0 [facility] [address] [place] [id number] Mar, Hypertension I10 ; Bronchitis J40 and Cough R05 [facility] [address] [place] [id number] Feb, [facility] [address] [place] [address] Feb, Skin tag L91.8 [facility] [address] [place] [id number] Dec, Dysuria R30.0 and Vaginitis N76.0 [facility] [address] [place] [id number] Dec, Constipation K59.00 ; Hypertension I10 ; Bronchitis J40 ; Post-tussive emesis R11.10 and Cough R05 [facility] [address] [place], [place] [id number] Dec, [facility] [address] [place] [id number] Nov, Constipation K59.00 and Bronchitis J40 [facility] [address] [place] [id number] Nov, [facility] [address] [place] [id number] October, Dysuria R30.0 [facility] [address] [place], [place] [id number] October, Urinary frequency R35.0 and UTI (urinary tract infection) N39.[address], [facility] [address] [place] [id number] Sep, Intellectual disability F79 ; COPD (chronic obstructive pulmonary disease ) J44.9 ; Postmenopausal Z78.0 ; Hypertension I10 and Hyperlipidemia E78.[address], [facility] [address] [place] [id number] Aug, Pain with urination R30.9 ; Wrist pain, left M25.532 and Pain in scapula M89.8X1 [address], [address] [place], [place] [id number] Jul, Pain with urination R30.9 and Vaginitis N76.[address], [address] [place], [place] [id number] Jul, Screening for breast cancer Z12.[address], [facility] [address] [place] [id number] Jul, Acute upper respiratory infection, unspecified J06.9 and Other viral agents as the cause of diseases classified elsewhere B97.[address] [place] [address] Jun, Cellulitis L03.[address] [place] [id number] Jun, Gastritis 535.50 ; URI (upper respiratory infection) J06.9 and Ingrown toenail L60.[address] [place], [place] [id number] Apr, Gastritis 535.50 and Oral lesion K13.[address] [place] [id number] Mar, Dysuria R30.0 and Pain of right scapula M89.8X1 [address], [address] [place] [id number] Mar, [address], [facility] [address] [place] [id number] Mar, [address], [address] [place], [place] [id number] Feb, Right knee pain 719.[address] [place], [place] [id number] Feb, [address], [address] [place], [place] [id number] Feb, Right knee pain 719.46 [facility] [address] [place], [place] [id number] Jan, Allergic rhinitis 477.9 and Cough 786.2 [facility] [address] [place], [place] [id number] Jan, [facility] [address] [place] [id number] Jan, Insect bites 919.4 [facility] [address] [place] [address] Jan, Fatigue 780.79 ; Gastritis 535.50 and Wound abscess 879.9 [facility] [address] [place] [id number] Dec, [facility] [address] [place], [place] [address] Nov, Fatigue 780.79 ; Weakness generalized 780.79 and Gastritis 535.50 [facility] [address] [place] [id number] Nov, [facility] [address] [place] [address] October, [facility] [address] [place] [address] October, [facility] [address] [place] [id number] October, [facility] [address] [place] [address] October, [facility] [address] [place] [address] Sep, [facility] [address] [place] [address] Sep, [facility] [address] [place] [address] Sep, [facility] [address] [place] [address] Aug, [facility] [address] [place] [address] Aug, [facility] [address] [place], [place] [id number] Jul, [facility] [address] [place] [id number] Jul, [facility] [address] [place] [id number] May, [facility] [address] [place] [address] May, [facility] [address] [place], [place] [id number] Apr, [facility] [address] [place] [id number] Mar, [facility] [address] [place] [address] Mar, [facility] [address] [place] [address] Feb, [facility] [address] [place] [address] Jan, [facility] [address] [place] [address] Jan, [facility] [address] [place] [address] Nov, [facility] [address] [place] [address] October, [facility] [address] [place] [address] October, [facility] [address] [place] [address] Sep, [facility] [address] [place] [id number] Aug, [facility] [address] [place] [id number] Jul, [facility] [address] [place] [id number] Jun, [facility] [address] [place] [address] May, [facility] [address] [place] [id number] Mar, [facility] [address] [place], [place] [id number] Mar, [facility] [address] [place], [place] [id number] Jan, [facility] [address] [place] [id number] Dec, [facility] [address] [place], [place] [id number] Nov, [facility] [address] [place], [place] [id number] October, [facility] [address] [place] [id number] Aug, [facility] [address] [place] [id number] Jul, [facility] [address] [place] [id number] Jun, [facility] [address] [place] [id number] Jun, [facility] [address] [place], [place] [address] Jun, [facility] [address] [place] [address] May, [facility] [address] [place], [place] [address] Apr, [facility] [address] [place] [id number] Mar, [facility] [address] [place] [id number] Mar, [facility] [address] [place], [place] [id number] Mar, IMMUNIZATIONS No Known Immunizations SOCIAL HISTORY Never Assessed REASON FOR VISIT [facility] f/u chest pain PLAN OF CARE VITAL SIGNS MEDICATIONS Unknown [...]
--- OUTSIDE RECORDS SUMMARY | 2018-02-04 20:19 | XMS REPORT ---
Author Author Rogelio Prado Organization [facility] Address [address], [address] [place], [place] [id number] Care Team Providers Care Cheese [employer] Worker Name Role Phone [employer] DivideRogelio valadez Unavailable PROBLEMS Type Condition ICD9-CM Code [id number] Code Onset Dates Condition Status SNOMED Code Problem Constipation K59.00 Active 77088330 Problem Closed fracture of one rib of right side with routine healing, subsequent encounter S22.31XD Active 71102034 Problem COPD (chronic obstructive pulmonary disease) with acute bronchitis J44.0 Active [id number] Problem BMI 35.0-35.9,adult Z68.35 Active 460054875 Problem Obstructive sleep apnea syndrome G47.33 Active 40420103 Problem Chronic sinusitis, unspecified J32.9 Active 607971281 Problem Nocturnal hypoxia G47.34 Active 421344323 Problem Gastritis without bleeding, unspecified chronicity, unspecified gastritis type K29.70 Active 1282285 Problem Acute sinusitis, unspecified J01.90 Active 80146684 Problem Episode of recurrent major depressive disorder, unspecified depression episode severity F33.9 Active 752774130 Problem Hyperlipidemia E78.5 Active 18681480 Problem Postmenopausal Z78.0 Active 44394029 Problem Intellectual disability F79 Active 79405413 Problem COPD (chronic obstructive pulmonary disease) J44.9 Active 88856894 Problem COPD exacerbation J44.1 Active 687891268 Problem Hypertension I10 Active 25039322 Problem Angina pectoris I20.9 Active [id number] ALLERGIES No Information ENCOUNTERS Encounter Location Date Diagnosis [facility] [address] [place], [place] [id number] Aug, [facility] [address], [address] [place], [place] [id number] Jan, [facility] [address], [address] [place] [id number] Dec, Pain with urination R30.9 [facility] [address], [address] [place] [id number] Dec, [facility] [address] [place] [id number] Dec, [facility] [address] [place] [id number] Nov, COPD (chronic obstructive pulmonary disease) J44.9 ; Hypertension I10 and Vaginal discharge N89.8 [facility] [address] [place] [id number] Nov, [facility] [address] [place] [id number] Nov, COPD (chronic obstructive pulmonary disease) J44.9 ; Angina pectoris I20.9 ; Nocturnal hypoxia G47.34 and Hypertension I10 [facility] [address] [place] [id number] Nov, [facility] [address] [place] [id number] October, [facility] [address] [place] [id number] October, [facility] [address] [place] [id number] October, [facility] [address] [place] [id number] October, Hypertension I10 ; COPD (chronic obstructive pulmonary disease) J44.9 ; Hyperlipidemia E78.5 ; COPD exacerbation J44.1 ; Episode of recurrent major depressive disorder, unspecified depression episode severity F33.9 and BMI 35.0- 35.9,adult Z68.35 [facility] [address] [place] [id number] October, [facility] [address] [place] [id number] Sep, [facility] [address] [place] [id number] Sep, [facility] [address] [place] [id number] Sep, Hypertension I10 ; COPD (chronic obstructive pulmonary disease) J44.9 ; Nocturnal hypoxia G47.34 and Obstructive sleep apnea syndrome G47.33 [facility] [address] [place] [id number] Sep, [facility] [address] [place] [id number] Sep, [facility] [address] [place] [id number] Aug, [facility] [address] [place] [id number] Aug, [facility] [address] [place] [id number] Aug, Encounter for screening mammogram for malignant neoplasm of breast Z12.31 ; Tinnitus of right ear H93.11 and Obstructive sleep apnea G47.33 [facility] [address] [place] [id number] Aug, [facility] [address] [place] [id number] Aug, Encounter for Medicare annual wellness exam Z00.00 and Advanced directives , counseling/discussion Z71.89 [facility] [address] [place] [id number] Jul, [facility] [address] [place] [id number] Jul, [facility] [address] [place] [id number] Jul, [facility] [address] [place] [id number] Jul, Right sided abdominal pain R10.9 ; Hypertension I10 ; COPD (chronic obstructive pulmonary disease) J44.9 and Hyperlipidemia E78.5 [facility] [address] [place] [id number] Jul, [facility] [address] [place] [id number] Jul, [facility] [address] [place] [id number] Jul, Acute gastritis without hemorrhage, unspecified gastritis type K29.00 ; Diarrhea, unspecified type R19.7 ; Hypertension I10 ; COPD (chronic obstructive pulmonary disease) J44.9 and Hyperlipidemia E78.5 [facility] [address] [place] [id number] Jul, [facility] [address] [place] [id number] Jun, Acute lower respiratory infection J22 ; Other fatigue R53.83 and History of influenza Z87.09 [facility] [address] [place], [place] [id number] Jun, [facility] [address] [place] [id number] Jun, [facility] [address] [place] [id number] Jun, Acute lower respiratory infection J22 ; Other fatigue R53.83 and History of influenza Z87.09 [facility] [address] [place] [id number] Jun, [facility] [address] [place] [id number] Jun, [facility] [address] [place] [id number] Jun, [facility] [address] [place] [id number] Jun, [facility] [address] [place] [id number] Jun, [facility] [address] [place] [id number] Jun, Acute pain of left shoulder M25.512 [facility] [address] [place] [id number] Jun, Acute pain of left shoulder M25.512 ; Gastritis without bleeding, unspecified chronicity, unspecified gastritis type K29.70 ; Hypertension I10 ; COPD (chronic obstructive pulmonary disease) J44.9 and Hyperlipidemia E78.5 [facility] [address] [place] [id number] Jun, [facility] [address] [place] [id number] Jun, [facility] [address] [place] [id number] May, [facility] [address] [place] [id number] May, Acute pain of left shoulder M25.512 ; Intellectual disability F79 and Closed fracture of one rib of right side with routine healing, subsequent encounter S22.31XD [facility] [address] [place] [id number] May, [facility] [address] [place] [id number] May, [facility] [address] [place] [id number] May, [facility] [address] [place] [id number] May, Acute bronchitis, unspecified organism J20.9 ; Hypertension I10 ; COPD ( chronic obstructive pulmonary disease) J44.9 ; Hyperlipidemia E78.5 ; Nocturnal hypoxia G47.34 and Obstructive sleep apnea syndrome G47.33 [facility] [address] [place] [id number] Apr, Pain with urination R30.9 ; Hypertension I10 ; COPD (chronic obstructive pulmonary disease) J44.9 ; Hyperlipidemia E78.5 and Acute bronchitis, unspecified organism J20.9 [facility] [address] [place] [id number] Apr, Hypertension I10 [facility] [address] [place] [id number] Apr, Acute sinusitis, unspecified J01.90 [facility] [address] [place] [id number] Apr, [facility] [address] [place] [id number] Mar, [facility] [address] [place] [id number] Mar, Other specified bacterial agents as the cause of diseases classified elsewhere B96.89 and Acute sinusitis, unspecified J01.90 [facility] [address] [place] [id number] Mar, Closed fracture of one rib of right side with routine healing, subsequent encounter S22.31XD [facility] [address] [place], [place] [id number] Mar, [facility] [address] [place] [id number] Mar, COPD (chronic obstructive pulmonary disease) J44.9 ; Closed fracture of one rib of right side with routine healing, subsequent encounter S22.31XD ; Hypertension I10 ; Constipation K59.00 ; Angina pectoris I20.9 ; Depression, unspecified depression type F32.9 and Left ear pain H92.02 [facility] [address] [place], [place] [id number] Mar, Elevated glucose R73.09 [facility] [address] [place] [id number] Mar, [facility] [address] [place] [id number] Mar, Left-sided chest wall pain R07.89 and Hypertension I10 [facility] [address] [place] [id number] Feb, [facility] [address] [place] [id number] Feb, Hypertension I10 [facility] [address] [place], [place] [id number] Feb, Closed fracture of one rib of right side, initial encounter S22.31XA ; Intellectual disability F79 ; COPD (chronic obstructive pulmonary disease) J44.9 ; Hyperlipidemia E78.5 and Hypertension I10 [facility] [address] [place] [id number] Feb, [facility] [address] [place] [id number] Feb, Dysuria R30.0 [facility] [address] [place] [id number] Jan, Closed fracture of one rib of right side, initial encounter S22.31XA [facility] [address] [place] [id number] Jan, [facility] [address] [place] [id number] Jan, [facility] [address] [place] [id number] Jan, Contusion of left side of back, initial encounter S20.222A [facility] [address] [place] [id number] Jan, [facility] [address] [place] [id number] Dec, [facility] [address] [place] [id number] Dec, [facility] [address] [place] [id number] Dec, COPD (chronic obstructive pulmonary disease) J44.9 and Hypertension I10 [facility] [address] [place] [id number] Dec, [facility] [address] [place] [id number] Dec, [facility] [address] [place] [id number] Dec, Skin irritation R23.8 [facility] [address] [place] [id number] Dec, [facility] [address] [place] [id number] Dec, [facility] [address] [place] [id number] Dec, [facility] [address] [place] [id number] Dec, [facility] [address] [place] [id number] October, Dysuria R30.0 and Pain of left calf M79.662 [facility] [address] [place] [id number] October, Pain of right great toe M79.674 and Overgrown toenails L60.2 [facility] [address] [place] [id number] Sep, [facility] [address] [place] [id number] Sep, [facility] [address] [place] [id number] Sep, Pain with urination R30.9 ; Abdominal pain, unspecified location R10.9 and Loose stools R19.5 [facility] [address] [place] [id number] Sep, Hypertension I10 [facility] [address] [place] [id number] Sep, [facility] [address] [place] [id number] Sep, Acute cystitis with hematuria N30.01 [facility] [address] [place] [id number] Sep, [facility] [address] [place] [id number] Sep, Urinary frequency R35.0 [facility] [address] [place] [id number] Aug, [facility] [address] [place], [place] [id number] Aug, Screening for breast cancer Z12.39 [facility] [address] [place] [id number] Aug, [facility] [address] [place] [id number] Aug, [facility] [address] [place] [id number] Aug, [facility] [address] [place] [id number] Aug, [facility] [address] [place] [id number] Aug, [facility] [address] [place] [id number] Aug, [facility] [address] [place] [id number] Aug, [facility] [address] [place] [id number] Aug, [facility] [address] [place] [id number] Jul, Dysuria R30.0 [facility] [address] [place], [place] [id number] Jul, Chest wall pain R07.89 and Myofascial pain M79.1 [facility] [address] [place], [place] [id number] Jul, [facility] [address] [place] [id number] Jul, Depression, unspecified depression type F32.9 ; Chronic obstructive pulmonary disease, unspecified COPD type J44.9 ; Hypertension I10 ; Angina pectoris I20.9 and Costochondritis M94.0 [facility] [address] [place] [id number] Jun, Acute non-recurrent maxillary sinusitis J01.00 [facility] [address] [place] [id number] Jun, [facility] [address] [place] [id number] Jun, [facility] [address] [place] [id number] Jun, [facility] [address] [place] [id number] Jun, [facility] [address] [place] [id number] Jun, [facility] [address] [place] [id number] Jun, Left-sided chest wall pain R07.89 and Cough due to bronchospasm J98.01 [facility] [address] [place] [id number] Jun, [facility] [address] [place] [id number] May, [facility] [address] [place] [id number] May, Left-sided chest wall pain R07.89 [facility] [address] [place] [id number] May, Left-sided chest wall pain R07.89 and Cough due to bronchospasm J98.01 [facility] [address] [place] [id number] May, [facility] [address] [place] [id number] May, Encounter for Medicare annual wellness exam Z00.00 ; Advanced directives, counseling/discussion Z71.89 ; Screening for osteoporosis Z13.820 ; Bilateral hearing loss, unspecified hearing loss type H91.93 ; Intellectual disability F79 ; COPD (chronic obstructive pulmonary disease) J44.9 ; Postmenopausal Z78.0 ; Hypertension I10 ; Hyperlipidemia E78.5 ; Constipation K59.00 and Angina pectoris I20.9 [facility] [address] [place], [place] [id number] May, [facility] [address] [place] [id number] May, Left-sided chest wall pain R07.89 and Chest wall contusion, left, initial encounter S20.212A [facility] [address] [place], [place] [id number] May, Dog bite, subsequent encounter W54.0XXD [facility] [address] [place], [place] [id number] May, Open bite of right hand, initial encounter S61.451A and Bitten by dog, initial encounter W54.0XXA [facility] [address] [place], [place] [id number] May, [facility] [address] [place] [id number] May, [facility] [address] [place], [place] [id number] Apr, Chest congestion R09.89 ; COPD exacerbation J44.1 and Dermatitis L30.[address], [address] [place], [place] [id number] Apr, Secondary infection of skin L08.89 and Keratotic lesion L57.0 [facility] [address] [place], [place] [id number] Mar, Hypertension I10 ; Bronchitis J40 and Cough R05 [facility] [address] [place] [id number] Feb, [facility] [address] [place], [place] [id number] Feb, Skin tag L91.[address], [address] [place], [place] [id number] Dec, Dysuria R30.0 and Vaginitis N76.0 [facility] [address] [place], [place] [id number] Dec, Constipation K59.00 ; Hypertension I10 ; Bronchitis J40 ; Post-tussive emesis R11.10 and Cough R05 [facility] [address] [place] [id number] Dec, [facility] [address] [place] [id number] Nov, Constipation K59.00 and Bronchitis J40 [facility] [address] [place] [id number] Nov, [facility] [address] [place] [id number] October, Dysuria R30.[address], [facility] [address] [place], [place] [id number] October, Urinary frequency R35.0 and UTI (urinary tract infection) N39.[address], [facility] [address] [place], [place] [id number] Sep, Intellectual disability F79 ; COPD (chronic obstructive pulmonary disease ) J44.9 ; Postmenopausal Z78.0 ; Hypertension I10 and Hyperlipidemia E78.[address] [place], [place] [id number] Aug, Pain with urination R30.9 ; Wrist pain, left M25.532 and Pain in scapula M89.8X1 [address] [id number] Jul, Pain with urination R30.9 and Vaginitis N76.[address] [place], [place] [id number] Jul, Screening for breast cancer Z12.[address] [place] [id number] Jul, Acute upper respiratory infection, unspecified J06.9 and Other viral agents as the cause of diseases classified elsewhere B97.[address], [facility] [address] [place] [id number] Jun, Cellulitis L03.[address], [facility] [address] [place] [id number] Jun, Gastritis 535.50 ; URI (upper respiratory infection) J06.9 and Ingrown toenail L60.[address] [place] [id number] Apr, Gastritis 535.50 and Oral lesion K13.[address] [place] [id number] Mar, Dysuria R30.0 and Pain of right scapula M89.8X1 [address], [facility] [address] [place] [id number] Mar, [address], [facility] [address] [place] [id number] Mar, [address], [facility] [address] [place] [id number] Feb, Right knee pain 719.[address] [place], [place] [id number] Feb, [facility] [address] [place], [place] [id number] Feb, Right knee pain 719.46 [facility] [address] [place], [place] [id number] Jan, Allergic rhinitis 477.9 and Cough 786.2 [facility] [address] [place], [place] [id number] Jan, [facility] [address] [place] [id number] Jan, Insect bites 919.4 [facility] [address] [place], [place] [id number] Jan, Fatigue 780.79 ; Gastritis 535.50 and Wound abscess 879.9 [facility] [address] [place], [place] [id number] Dec, [facility] [address] [place] [id number] Nov, Fatigue 780.79 ; Weakness generalized 780.79 and Gastritis 535.50 [facility] [address] [place], [place] [id number] Nov, [facility] [address] [place] [id number] October, [facility] [address] [place] [id number] October, [facility] [address] [place] [id number] October, [facility] [address] [place] [id number] October, [facility] [address] [place] [id number] Sep, [facility] [address] [place] [id number] Sep, [facility] [address] [place] [id number] Sep, [facility] [address] [place] [id number] Aug, [facility] [address] [place] [id number] Aug, [facility] [address] [place] [id number] Jul, [facility] [address] [place] [id number] Jul, [facility] [address] [place] [id number] May, [facility] [address] [place] [id number] May, [facility] [address] [place] [id number] Apr, [facility] [address] [place] [id number] Mar, [facility] [address] [place] [id number] Mar, [facility] [address] [place] [id number] Feb, [facility] [address] [place] [id number] Jan, [facility] [address] [place] [id number] Jan, [facility] [address] [place] [id number] Nov, [facility] [address] [place] [id number] October, [facility] [address] [place] [id number] October, [facility] [address] [place] [address] Sep, [facility] [address] [place] [id number] Aug, [facility] [address] [place] [id number] Jul, [facility] [address] [place] [id number] Jun, [facility] [address] [place] [id number] May, [facility] [address] [place] [id number] Mar, [facility] [address] [place] [id number] Mar, [facility] [address] [place] [id number] Jan, [facility] [address] [place] [id number] Dec, [facility] [address] [place] [id number] Nov, [facility] [address] [place] [id number] October, [facility] [address] [place] [id number] Aug, [facility] [address] [place] [id number] Jul, [facility] [address] [place] [id number] Jun, [facility] [address] [place] [id number] Jun, [facility] [address] [place] [id number] Jun, [facility] [address] [place], [place] [id number] May, [facility] [address] [place] [id number] Apr, [facility] [address] [place] [id number] Mar, [facility] [address] [place] [id number] Mar, [facility] [address] [place] [id number] Mar, IMMUNIZATIONS No Known Immunizations SOCIAL HISTORY Never Assessed REASON FOR VISIT possible UTI PLAN OF CARE Activity Details Pending Test * Urine C&S Pending Test * Urine at [facility] VITAL SIGNS MEDICATIONS Unknown Medications RESULTS Name Result Date Reference Range * Urine C&S 2018-01-10 TYPE OF SPECIMEN VOID FINDINGS D1 GROWTH NR FINDINGS D2 GROWTH NR * Urine at [facility] 2018-01-10 Color STRAW Character CLEAR Glucose NEGATIVE Bilirubin NEGATIVE Ketones NEGATIVE Sp [place] 1.008 Ph 6.0 Protein NEGATIVE Urobilinogen NEGATIVE Nitrite NEGATIVE Blood NEGATIVE Leukocytes TRACE Bacteria NONE SEEN WBC/ 0-2 RBC/ 0-2 Squa Epi Cell 0-2 Culture Not indicat PROCEDURES No Known procedures INSTRUCTIONS MEDICATIONS ADMINISTERED [...]
--- OUTSIDE RECORDS SUMMARY | 2018-02-04 20:20 | XMS REPORT ---
Author Author Rogelio Prado Organization [facility] Address [address], [address] [place], [place] [id number] Care Team Providers Care Inspector Casing Name Role Phone Rogelio Prado Unavailable PROBLEMS Type Condition ICD9-CM Code UQS32-XU Code Onset Dates Condition Status SNOMED Code Problem Angina pectoris I20.9 Active 643341243 Problem COPD (chronic obstructive pulmonary disease) with acute bronchitis J44.0 Active 605807668202499 Problem Constipation K59.00 Active 74965092 Problem Chronic sinusitis, unspecified J32.9 Active 205176125 Problem Acute sinusitis, unspecified J01.90 Active 50976961 Problem Closed fracture of one rib of right side with routine healing, subsequent encounter S22.31XD Active 36153631 Problem Depression, unspecified depression type F32.9 Active 73396119 Problem Nocturnal hypoxia G47.34 Active 293137682 Problem Obstructive sleep apnea syndrome G47.33 Active 76641440 Problem Postmenopausal Z78.0 Active 89539819 Problem COPD (chronic obstructive pulmonary disease) J44.9 Active 42390342 Problem Hyperlipidemia E78.5 Active 53440708 Problem Intellectual disability F79 Active 93921161 Problem Hypertension I10 Active 97368674 Problem COPD exacerbation J44.1 Active 049563326 ALLERGIES No Information SOCIAL HISTORY Never Assessed PLAN OF CARE VITAL SIGNS MEDICATIONS Medication Instructions Dosage Frequency Start Date End Date Duration Status [place] 5-325 MG Orally every 6 hrs 1 tablet as needed 6h Jun, 10 days Active RESULTS No Results PROCEDURES No [...]
--- OUTSIDE RECORDS SUMMARY | 2018-02-04 20:20 | XMS REPORT ---
Author Author Rogelio Prado Organization [facility] Address [address], [address] [place], [place] [id number] Care Team Providers Care Asp Net Developer Name Role Phone Rogelio Prado Unavailable PROBLEMS Type Condition ICD9-CM Code [id number] Code Onset Dates Condition Status SNOMED Code Problem Constipation K59.00 Active 03384701 Problem Closed fracture of one rib of right side with routine healing, subsequent encounter S22.31XD Active 65076243 Problem COPD (chronic obstructive pulmonary disease) with acute bronchitis J44.0 Active [id number] Problem BMI 35.0-35.9,adult Z68.35 Active 398422553 Problem Obstructive sleep apnea syndrome G47.33 Active 43362592 Problem Acute sinusitis, unspecified J01.90 Active 11604474 Problem Nocturnal hypoxia G47.34 Active 691205813 Problem Gastritis without bleeding, unspecified chronicity, unspecified gastritis type K29.70 Active 2803008 Problem Chronic sinusitis, unspecified J32.9 Active 948705882 Problem Episode of recurrent major depressive disorder, unspecified depression episode severity F33.9 Active 683271322 Problem Hyperlipidemia E78.5 Active 43846526 Problem COPD (chronic obstructive pulmonary disease) J44.9 Active 40292879 Problem Intellectual disability F79 Active 41473894 Problem Hypertension I10 Active 28792553 Problem COPD exacerbation J44.1 Active 406165830 Problem Postmenopausal Z78.0 Active 55545350 Problem Angina pectoris I20.9 Active 481715220 ALLERGIES No Information ENCOUNTERS Encounter Location Date Diagnosis [facility] [address], [address] [place], [place] [id number] Aug, [facility] [address], [address] [place] [id number] October, [facility] [address], [address] [place] [id number] October, Hypertension I10 ; COPD (chronic obstructive pulmonary disease) J44.9 ; Hyperlipidemia E78.5 ; COPD exacerbation J44.1 ; Episode of recurrent major depressive disorder, unspecified depression episode severity F33.9 and BMI 35.0- 35.9,adult Z68.35 [facility] [address] [place], [place] [id number] October, [facility] [address] [place], [place] [id number] Sep, [facility] [address] [place] [id number] Sep, [facility] [address] [place] [id number] Sep, Hypertension I10 ; COPD (chronic obstructive pulmonary disease) J44.9 ; Nocturnal hypoxia G47.34 and Obstructive sleep apnea syndrome G47.33 [facility] [address] [place], [place] [id number] Sep, [facility] [address] [place] [id number] Sep, [facility] [address] [place] [id number] Aug, [facility] [address] [place] [id number] Aug, [facility] [address] [place], [place] [id number] Aug, Encounter for screening mammogram for malignant neoplasm of breast Z12.31 ; Tinnitus of right ear H93.11 and Obstructive sleep apnea G47.33 [facility] [address] [place] [id number] Aug, [facility] [address] [place], [place] [id number] Aug, Encounter for Medicare annual wellness exam Z00.00 and Advanced directives , counseling/discussion Z71.89 [facility] [address] [place] [id number] Jul, [facility] [address] [place] [id number] Jul, [facility] [address], [address] [place] [id number] Jul, [facility] [address] [place] [id number] Jul, Right sided abdominal pain R10.9 ; Hypertension I10 ; COPD (chronic obstructive pulmonary disease) J44.9 and Hyperlipidemia E78.5 [facility] [address] [place] [id number] Jul, [facility] [address] [place] [id number] Jul, [facility] [address] [place] [id number] Jul, Acute gastritis without hemorrhage, unspecified gastritis type K29.00 ; Diarrhea, unspecified type R19.7 ; Hypertension I10 ; COPD (chronic obstructive pulmonary disease) J44.9 and Hyperlipidemia E78.5 [facility] [address] [place] [id number] Jul, [facility] [address] [place], [place] [id number] Jun, Acute lower respiratory infection J22 ; Other fatigue R53.83 and History of influenza Z87.09 [facility] [address] [place], [place] [id number] Jun, [facility] [address] [place] [id number] Jun, [facility] [address] [place] [id number] Jun, Acute lower respiratory infection J22 ; Other fatigue R53.83 and History of influenza Z87.09 [facility] [address] [place] [id number] Jun, [facility] [address] [place] [id number] Jun, [facility] [address] [place] [id number] Jun, [facility] [address] [place] [id number] Jun, [facility] [address] [place] [id number] Jun, [facility] [address] [place] [id number] Jun, Acute pain of left shoulder M25.512 [facility] [address] [place], [place] [id number] Jun, Acute pain of left shoulder M25.512 ; Gastritis without bleeding, unspecified chronicity, unspecified gastritis type K29.70 ; Hypertension I10 ; COPD (chronic obstructive pulmonary disease) J44.9 and Hyperlipidemia E78.5 [facility] [address] [place] [id number] Jun, [facility] [address] [place] [id number] Jun, [facility] [address] [place] [address] May, [facility] [address] [place], [place] [id number] May, Acute pain of left shoulder M25.512 ; Intellectual disability F79 and Closed fracture of one rib of right side with routine healing, subsequent encounter S22.31XD [facility] [address] [place] [id number] May, [facility] [address] [place] [id number] May, [facility] [address] [place] [id number] May, [facility] [address] [place] [id number] May, Acute bronchitis, unspecified organism J20.9 ; Hypertension I10 ; COPD ( chronic obstructive pulmonary disease) J44.9 ; Hyperlipidemia E78.5 ; Nocturnal hypoxia G47.34 and Obstructive sleep apnea syndrome G47.[address] [place], [place] [id number] Apr, Pain with urination R30.9 ; Hypertension I10 ; COPD (chronic obstructive pulmonary disease) J44.9 ; Hyperlipidemia E78.5 and Acute bronchitis, unspecified organism J20.[address] [place], [place] [id number] Apr, Hypertension I10 [address] [place], [place] [id number] Apr, Acute sinusitis, unspecified J01.[address] [place] [id number] Apr, [address] [place] [id number] Mar, [address], [address] [place] [id number] Mar, Other specified bacterial agents as the cause of diseases classified elsewhere B96.89 and Acute sinusitis, unspecified J01.[address] [place] [id number] Mar, Closed fracture of one rib of right side with routine healing, subsequent encounter S22.31XD [facility] [address] [place] [id number] Mar, [facility] [address] [place] [id number] Mar, COPD (chronic obstructive pulmonary disease) J44.9 ; Closed fracture of one rib of right side with routine healing, subsequent encounter S22.31XD ; Hypertension I10 ; Constipation K59.00 ; Angina pectoris I20.9 ; Depression, unspecified depression type F32.9 and Left ear pain H92.02 [facility] [address] [place], [place] [id number] Mar, Elevated glucose R73.09 [facility] [address] [place], [place] [id number] Mar, [facility] [address] [place] [address] Mar, Left-sided chest wall pain R07.89 and Hypertension I10 [facility] [address] [place] [id number] Feb, [facility] [address] [place] [id number] Feb, Hypertension I10 [facility] [address] [place] [id number] Feb, Closed fracture of one rib of right side, initial encounter S22.31XA ; Intellectual disability F79 ; COPD (chronic obstructive pulmonary disease) J44.9 ; Hyperlipidemia E78.5 and Hypertension I10 [facility] [address] [place] [id number] Feb, [facility] [address] [place] [id number] Feb, Dysuria R30.0 [facility] [address] [place] [id number] Jan, Closed fracture of one rib of right side, initial encounter S22.31XA [facility] [address] [place] [id number] Jan, [facility] [address] [place] [id number] Jan, [facility] [address] [place] [id number] Jan, Contusion of left side of back, initial encounter S20.222A [facility] [address] [place], [place] [id number] Jan, [facility] [address] [place] [id number] Dec, [facility] [address] [place] [id number] Dec, [facility] [address] [place] [id number] Dec, COPD (chronic obstructive pulmonary disease) J44.9 and Hypertension I10 [facility] [address] [place] [id number] Dec, [facility] [address] [place] [id number] Dec, [facility] [address] [place] [id number] Dec, Skin irritation R23.8 [facility] [address] [place] [id number] Dec, [facility] [address] [place] [id number] Dec, [facility] [address] [place] [id number] Dec, [facility] [address] [place] [id number] Dec, [facility] [address] [place] [id number] October, Dysuria R30.0 and Pain of left calf M79.662 [facility] [address] [place] [id number] October, Pain of right great toe M79.674 and Overgrown toenails L60.2 [facility] [address] [place] [id number] Sep, [facility] [address] [place] [id number] Sep, [facility] [address] [place], [place] [id number] Sep, Pain with urination R30.9 ; Abdominal pain, unspecified location R10.9 and Loose stools R19.5 [facility] [address] [place] [id number] Sep, Hypertension I10 [facility] [address] [place] [id number] Sep, [facility] [address] [place] [id number] Sep, Acute cystitis with hematuria N30.01 [facility] [address] [place] [id number] Sep, [facility] [address] [place], [place] [id number] Sep, Urinary frequency R35.0 [facility] [address] [place] [id number] Aug, [facility] [address] [place] [id number] Aug, Screening for breast cancer Z12.39 [facility] [address] [place], [place] [id number] Aug, [facility] [address] [place] [id number] Aug, [facility] [address] [place] [address] Aug, [facility] [address] [place] [id number] Aug, [facility] [address] [place] [id number] Aug, [facility] [address] [place] [address] Aug, [facility] [address] [place] [id number] Aug, [facility] [address] [place] [id number] Aug, [facility] [address] [place] [id number] Jul, Dysuria R30.0 [facility] [address] [place] [id number] Jul, Chest wall pain R07.89 and Myofascial pain M79.1 [facility] [address] [place] [id number] Jul, [facility] [address] [place] [id number] Jul, Depression, unspecified depression type F32.9 ; Chronic obstructive pulmonary disease, unspecified COPD type J44.9 ; Hypertension I10 ; Angina pectoris I20.9 and Costochondritis M94.0 [facility] [address] [place], [place] [id number] Jun, Acute non-recurrent maxillary sinusitis J01.00 [facility] [address] [place], [place] [id number] Jun, [facility] [address] [place] [id number] Jun, [facility] [address] [place] [id number] Jun, [facility] [address] [place] [id number] Jun, [facility] [address] [place] [id number] Jun, [facility] [address] [place] [id number] Jun, Left-sided chest wall pain R07.89 and Cough due to bronchospasm J98.01 [facility] [address] [place] [id number] Jun, [facility] [address] [place] [id number] May, [facility] [address] [place] [id number] May, Left-sided chest wall pain R07.89 [facility] [address], [facility] [place] [id number] May, Left-sided chest wall pain R07.89 and Cough due to bronchospasm J98.01 [facility] [address], [facility] [place] [id number] May, [facility] [address] [place], [place] [id number] May, Encounter for Medicare annual wellness exam Z00.00 ; Advanced directives, counseling/discussion Z71.89 ; Screening for osteoporosis Z13.820 ; Bilateral hearing loss, unspecified hearing loss type H91.93 ; Intellectual disability F79 ; COPD (chronic obstructive pulmonary disease) J44.9 ; Postmenopausal Z78.0 ; Hypertension I10 ; Hyperlipidemia E78.5 ; Constipation K59.00 and Angina pectoris I20.[address] [place], [place] [id number] May, [facility] [address] [place] [id number] May, Left-sided chest wall pain R07.89 and Chest wall contusion, left, initial encounter S20.212A [facility] [address] [place], [place] [id number] May, Dog bite, subsequent encounter W54.0XXD [address], [facility] [place] [id number] May, Open bite of right hand, initial encounter S61.451A and Bitten by dog, initial encounter W54.0XXA [facility] [address] [place] [id number] May, [facility] [address], [address] [place] [id number] May, [facility] [address], [address] [place] [id number] Apr, Chest congestion R09.89 ; COPD exacerbation J44.1 and Dermatitis L30.[address] [place], [place] [id number] Apr, Secondary infection of skin L08.89 and Keratotic lesion L57.[address] [place] [id number] Mar, Hypertension I10 ; Bronchitis J40 and Cough R05 [facility] [address] [place], [place] [id number] Feb, [facility] [address], [address] [place] [id number] Feb, Skin tag L91.8 [facility] [address] [place], [place] [id number] Dec, Dysuria R30.0 and Vaginitis N76.0 [facility] [address] [place] [id number] Dec, Constipation K59.00 ; Hypertension I10 ; Bronchitis J40 ; Post-tussive emesis R11.10 and Cough R05 [facility] [address] [place], [place] [id number] Dec, [facility] [address] [place] [id number] Nov, Constipation K59.00 and Bronchitis J40 [facility] [address] [place] [id number] Nov, [facility] [address], [address] [place] [id number] October, Dysuria R30.0 [facility] [address] [place] [id number] October, Urinary frequency R35.0 and UTI (urinary tract infection) N39.0 [facility] [address] [place] [id number] Sep, Intellectual disability F79 ; COPD (chronic obstructive pulmonary disease ) J44.9 ; Postmenopausal Z78.0 ; Hypertension I10 and Hyperlipidemia E78.5 [facility] [address] [place] [id number] Aug, Pain with urination R30.9 ; Wrist pain, left M25.532 and Pain in scapula M89.8X1 [address], [address] [place], [place] [id number] Jul, Pain with urination R30.9 and Vaginitis N76.0 [facility] [address] [place], [place] [id number] Jul, Screening for breast cancer Z12.39 [facility] [address] [place], [place] [id number] Jul, Acute upper respiratory infection, unspecified J06.9 and Other viral agents as the cause of diseases classified elsewhere B97.89 [facility] [address] [place] [id number] Jun, Cellulitis L03.90 [facility] [address] [place], [place] [id number] Jun, Gastritis 535.50 ; URI (upper respiratory infection) J06.9 and Ingrown toenail L60.0 [facility] [address] [place], [place] [id number] Apr, Gastritis 535.50 and Oral lesion K13.70 [facility] [address] [place], [place] [id number] Mar, Dysuria R30.0 and Pain of right scapula M89.8X1 [facility] [address] [place] [id number] Mar, [facility] [address] [place] [id number] Mar, [facility] [address] [place] [id number] Feb, Right knee pain 719.46 [facility] [address] [place] [id number] Feb, [facility] [address] [place] [id number] Feb, Right knee pain 719.46 [facility] [address] [place], [place] [id number] Jan, Allergic rhinitis 477.9 and Cough 786.2 [facility] [address] [place], [place] [id number] Jan, [facility] [address] [place] [address] Jan, Insect bites 919.4 [facility] [address] [place] [id number] Jan, Fatigue 780.79 ; Gastritis 535.50 and Wound abscess 879.9 [facility] [address] [place] [id number] Dec, [facility] [address] [place], [place] [id number] Nov, Fatigue 780.79 ; Weakness generalized 780.79 and Gastritis 535.50 [facility] [address] [place], [place] [id number] Nov, [facility] [address] [place] [address] October, [facility] [address] [place], [place] [id number] October, [facility] [address] [place] [id number] October, [facility] [address] [place] [id number] October, [facility] [address] [place] [id number] Sep, [facility] [address] [place] [id number] Sep, [facility] [address] [place] [id number] Sep, [facility] [address] [place] [id number] Aug, [facility] [address] [place] [id number] Aug, [facility] [address] [place] [id number] Jul, [facility] [address] [place] [id number] Jul, [facility] [address] [place] [id number] May, [facility] [address] [place] [id number] May, [facility] [address] [place] [id number] Apr, [facility] [address] [place] [id number] Mar, [facility] [address] [place] [id number] Mar, [facility] [address] [place] [id number] Feb, [facility] [address] [place] [id number] Jan, [facility] [address] [place] [id number] Jan, [facility] [address] [place] [id number] Nov, [facility] [address] [place] [id number] October, [facility] [address] [place] [id number] October, [facility] [address] [place] [id number] Sep, [facility] [address] [place] [id number] Aug, [facility] [address] [place] [id number] Jul, [facility] [address] [place] [id number] Jun, [facility] [address] [place] [id number] May, [facility] [address] [place] [id number] Mar, [facility] [address] [place] [id number] Mar, [facility] [address] [place] [id number] Jan, [facility] [address] [place] [id number] Dec, [facility] [address] [place] [id number] Nov, [facility] [address] [place] [id number] October, [facility] [address] [place] [id number] Aug, [facility] [address] [place] [id number] Jul, [facility] [address] [place] [id number] Jun, [facility] [address] [place] [id number] Jun, [facility] [address] [place], [place] [id number] Jun, [facility] [address] [place] [id number] May, [facility] [address] [place] [id number] Apr, [facility] [address] [place] [id number] Mar, [facility] [address] [place] [place] [id number] Mar, [facility] [address], [address] [place], [place] [id number] Mar, IMMUNIZATIONS No Known Immunizations SOCIAL HISTORY Never Assessed REASON FOR VISIT prednisone PLAN OF CARE VITAL SIGNS MEDICATIONS Unknown [...]
--- OUTSIDE RECORDS SUMMARY | 2018-02-04 20:20 | XMS REPORT ---
Author Author Rogelio Prado Organization [facility] Address [address], [address] [place], [place] [id number] Care Team Providers Care Art Appraiser Name Role Phone Rogelio Prado Unavailable PROBLEMS Type Condition ICD9-CM Code [id number] Code Onset Dates Condition Status SNOMED Code Problem Angina pectoris I20.9 Active 790764561 Problem COPD (chronic obstructive pulmonary disease) with acute bronchitis J44.0 Active 941646216139913 Problem Constipation K59.00 Active 92853098 Problem Chronic sinusitis, unspecified J32.9 Active 506011668 Problem Acute sinusitis, unspecified J01.90 Active 88703055 Problem Closed fracture of one rib of right side with routine healing, subsequent encounter S22.31XD Active 60104871 Problem Depression, unspecified depression type F32.9 Active 82776608 Problem Nocturnal hypoxia G47.34 Active 101624693 Problem Obstructive sleep apnea syndrome G47.33 Active 15028143 Problem Postmenopausal Z78.0 Active 29526449 Problem COPD (chronic obstructive pulmonary disease) J44.9 Active 37617651 Problem Hyperlipidemia E78.5 Active 97072559 Problem Intellectual disability F79 Active 13898004 Problem Hypertension I10 Active 98972887 Problem COPD exacerbation J44.1 Active 766901502 ALLERGIES No Information SOCIAL HISTORY Never Assessed [...]
--- OUTSIDE RECORDS SUMMARY | 2018-02-04 20:20 | XMS REPORT ---
Author Author Rogelio Prado Organization [facility] Address [address], [address] [place], [place] [address] Care Team Providers Care Business Systems Lead Name Role Phone [place], Rogelio Unavailable PROBLEMS Type Condition ICD9-CM Code [id number] Code Onset Dates Condition Status SNOMED Code Problem Angina pectoris I20.9 Active 487831370 Problem COPD (chronic obstructive pulmonary disease) with acute bronchitis J44.0 Active 378555934970496 Problem Constipation K59.00 Active 70836840 Problem Gastritis without bleeding, unspecified chronicity, unspecified gastritis type K29.70 Active 9020998 Problem Obstructive sleep apnea G47.33 Active 24470658 Problem Nocturnal hypoxia G47.34 Active 188020668 Problem Closed fracture of one rib of right side with routine healing, subsequent encounter S22.31XD Active 69568299 Problem Chronic sinusitis, unspecified J32.9 Active 302323926 Problem Acute sinusitis, unspecified J01.90 Active 34388644 Problem Episode of recurrent major depressive disorder, unspecified depression episode severity F33.9 Active 487416341 Problem Postmenopausal Z78.0 Active 25698137 Problem COPD (chronic obstructive pulmonary disease) J44.9 Active 06842892 Problem Hyperlipidemia E78.5 Active 37997361 Problem Intellectual disability F79 Active 11499183 Problem Hypertension I10 Active 25118814 Problem COPD exacerbation J44.1 Active [id number] ALLERGIES No Information ENCOUNTERS Encounter Location Date Diagnosis [facility] [address] [place], [place] [id number] Aug, [facility] [address], [address] [place], [place] [id number] Sep, [facility] [address] [place], [place] [id number] Aug, [facility] [address] [place], [place] [id number] Aug, [facility] [address], [address] [place], [place] [id number] Aug, Encounter for screening mammogram for malignant neoplasm of breast Z12.31 ; Tinnitus of right ear H93.11 and Obstructive sleep apnea G47.33 [facility] [address] [place], [place] [id number] Aug, [facility] [address], [address] [place], [place] [id number] Aug, Encounter for Medicare annual wellness exam Z00.00 and Advanced directives , counseling/discussion Z71.89 [facility] [address] [place] [id number] Jul, [facility] [address] [place] [id number] Jul, [facility] [address] [place] [id number] Jul, [facility] [address] [place], [place] [id number] Jul, Right sided abdominal pain R10.9 ; Hypertension I10 ; COPD (chronic obstructive pulmonary disease) J44.9 and Hyperlipidemia E78.5 [facility] [address] [place] [id number] Jul, [facility] [address] [place] [id number] Jul, [facility] [address] [place] [id number] Jul, Acute gastritis without hemorrhage, unspecified gastritis type K29.00 ; Diarrhea, unspecified type R19.7 ; Hypertension I10 ; COPD (chronic obstructive pulmonary disease) J44.9 and Hyperlipidemia E78.5 [facility] [address] [place], [place] [id number] Jul, [facility] [address] [place] [id number] Jun, Acute lower respiratory infection J22 ; Other fatigue R53.83 and History of influenza Z87.09 [facility] [address] [place], [place] [id number] Jun, [facility] [address] [place] [id number] Jun, [facility] [address] [place] [id number] Jun, Acute lower respiratory infection J22 ; Other fatigue R53.83 and History of influenza Z87.09 [facility] [address] [place] [id number] Jun, [facility] [address] [place] [id number] Jun, [facility] [address] [place], [place] [id number] Jun, [facility] [address] [place], [place] [id number] Jun, [facility] [address] [place] [id number] Jun, [facility] [address] [place], [place] [id number] Jun, Acute pain of left shoulder M25.512 [facility] [address] [place], [place] [id number] Jun, Acute pain of left shoulder M25.512 ; Gastritis without bleeding, unspecified chronicity, unspecified gastritis type K29.70 ; Hypertension I10 ; COPD (chronic obstructive pulmonary disease) J44.9 and Hyperlipidemia E78.5 [facility] [address] [place], [place] [id number] Jun, [facility] [address] [place], [place] [id number] Jun, [facility] [address] [place] [id number] May, [facility] [address] [place], [place] [id number] May, Acute pain of left shoulder M25.512 ; Intellectual disability F79 and Closed fracture of one rib of right side with routine healing, subsequent encounter S22.31XD [facility] [address] [place], [place] [id number] May, [facility] [address] [place], [place] [id number] May, [facility] [address] [place], [place] [id number] May, [facility] [address] [place], [place] [id number] May, Acute bronchitis, unspecified organism J20.9 ; Hypertension I10 ; COPD ( chronic obstructive pulmonary disease) J44.9 ; Hyperlipidemia E78.5 ; Nocturnal hypoxia G47.34 and Obstructive sleep apnea syndrome G47.33 [facility] [address] [place], [place] [id number] Apr, Pain with urination R30.9 ; Hypertension I10 ; COPD (chronic obstructive pulmonary disease) J44.9 ; Hyperlipidemia E78.5 and Acute bronchitis, unspecified organism J20.9 [facility] [address] [place], [place] [id number] Apr, Hypertension I10 [facility] [address] [place] [id number] Apr, Acute sinusitis, unspecified J01.90 [facility] [address] [place], [place] [id number] Apr, [facility] [address] [place], [place] [id number] Mar, [facility] [address] [place], [place] [id number] Mar, Other specified bacterial agents as the cause of diseases classified elsewhere B96.89 and Acute sinusitis, unspecified J01.90 [facility] [address] [place], [place] [id number] Mar, Closed fracture of one rib of right side with routine healing, subsequent encounter S22.31XD [facility] [address] [place], [place] [id number] Mar, [facility] [address] [place], [place] [id number] Mar, COPD (chronic obstructive pulmonary disease) J44.9 ; Closed fracture of one rib of right side with routine healing, subsequent encounter S22.31XD ; Hypertension I10 ; Constipation K59.00 ; Angina pectoris I20.9 ; Depression, unspecified depression type F32.9 and Left ear pain H92.02 [facility] [address] [place], [place] [id number] Mar, Elevated glucose R73.09 [facility] [address] [place], [place] [id number] Mar, [facility] [address] [place], [place] [id number] Mar, Left-sided chest wall pain R07.89 and Hypertension I10 [facility] [address] [place], [place] [id number] Feb, [facility] [address] [place], [place] [id number] Feb, Hypertension I10 [facility] [address] [place], [place] [id number] Feb, Closed fracture of one rib of right side, initial encounter S22.31XA ; Intellectual disability F79 ; COPD (chronic obstructive pulmonary disease) J44.9 ; Hyperlipidemia E78.5 and Hypertension I10 [facility] [address] [place], [place] [id number] Feb, [facility] [address] [place], [place] [id number] Feb, Dysuria R30.0 [facility] [address] [place], [place] [id number] Jan, Closed fracture of one rib of right side, initial encounter S22.31XA [facility] [address] [place], [place] [id number] Jan, [facility] [address] [place] [id number] Jan, [facility] [address] [place] [id number] Jan, Contusion of left side of back, initial encounter S20.222A [facility] [address] [place], [place] [id number] Jan, [facility] [address] [place], [place] [id number] Dec, [facility] [address] [place] [id number] Dec, [facility] [address] [place], [place] [id number] Dec, COPD (chronic obstructive pulmonary disease) J44.9 and Hypertension I10 [facility] [address] [place], [place] [id number] Dec, [facility] [address] [place], [place] [id number] Dec, [facility] [address] [place], [place] [id number] Dec, Skin irritation R23.8 [facility] [address] [place], [place] [id number] Dec, [facility] [address] [place], [place] [id number] Dec, [facility] [address] [place], [place] [id number] Dec, [facility] [address] [place], [place] [id number] Dec, [facility] [address] [place], [place] [id number] October, Dysuria R30.0 and Pain of left calf M79.662 [facility] [address] [place], [place] [id number] October, Pain of right great toe M79.674 and Overgrown toenails L60.2 [facility] [address] [place], [place] [id number] Sep, [facility] [address] [place], [place] [id number] Sep, [facility] [address] [place] [id number] Sep, Pain with urination R30.9 ; Abdominal pain, unspecified location R10.9 and Loose stools R19.5 [facility] [address] [place], [place] [id number] Sep, Hypertension I10 [facility] [address] [place], [place] [id number] Sep, [facility] [address] [place], [place] [id number] Sep, Acute cystitis with hematuria N30.01 [facility] [address] [place] [id number] Sep, [facility] [address] [place], [place] [id number] Sep, Urinary frequency R35.0 [facility] [address] [place], [place] [id number] Aug, [facility] [address] [place], [place] [id number] Aug, Screening for breast cancer Z12.39 [facility] [address] [place], [place] [id number] Aug, [facility] [address] [place], [place] [id number] Aug, [facility] [address] [place], [place] [id number] Aug, [facility] [address] [place] [id number] Aug, [facility] [address] [place], [place] [id number] Aug, [facility] [address] [place], [place] [id number] Aug, [facility] [address] [place], [place] [id number] Aug, [facility] [address] [place] [id number] Aug, [facility] [address] [place], [place] [id number] Jul, Dysuria R30.0 [facility] [address] [place], [place] [id number] Jul, Chest wall pain R07.89 and Myofascial pain M79.1 [facility] [address] [place], [place] [id number] Jul, [facility] [address] [place], [place] [id number] Jul, Depression, unspecified depression type F32.9 ; Chronic obstructive pulmonary disease, unspecified COPD type J44.9 ; Hypertension I10 ; Angina pectoris I20.9 and Costochondritis M94.0 [facility] [address] [place], [place] [id number] Jun, Acute non-recurrent maxillary sinusitis J01.00 [facility] [address] [place], [place] [id number] Jun, [facility] [address] [place] [id number] Jun, [facility] [address] [place], [place] [id number] Jun, [facility] [address] [place], [place] [id number] Jun, [facility] [address] [place], [place] [id number] Jun, [facility] [address] [place] [id number] Jun, Left-sided chest wall pain R07.89 and Cough due to bronchospasm J98.01 [facility] [address] [place], [place] [id number] Jun, [facility] [address] [place] [id number] May, [facility] [address] [place] [id number] May, Left-sided chest wall pain R07.89 [facility] [address] [place], [place] [id number] May, Left-sided chest wall pain R07.89 and Cough due to bronchospasm J98.01 [facility] [address] [place], [place] [id number] May, [facility] [address] [place], [place] [id number] May, Encounter for Medicare annual wellness exam Z00.00 ; Advanced directives, counseling/discussion Z71.89 ; Screening for osteoporosis Z13.820 ; Bilateral hearing loss, unspecified hearing loss type H91.93 ; Intellectual disability F79 ; COPD (chronic obstructive pulmonary disease) J44.9 ; Postmenopausal Z78.0 ; Hypertension I10 ; Hyperlipidemia E78.5 ; Constipation K59.00 and Angina pectoris I20.9 [facility] [address] [place], [place] [id number] May, [facility] [address] [place] [id number] May, Left-sided chest wall pain R07.89 and Chest wall contusion, left, initial encounter S20.212A [facility] [address] [place], [place] [id number] May, Dog bite, subsequent encounter W54.0XXD [facility] [address] [place], [place] [id number] May, Open bite of right hand, initial encounter S61.451A and Bitten by dog, initial encounter W54.0XXA [facility] [address] [place], [place] [id number] May, [facility] [address] [place], [place] [id number] May, [facility] [address] [place], [place] [id number] Apr, Chest congestion R09.89 ; COPD exacerbation J44.1 and Dermatitis L30.9 [facility] [address] [place], [place] [id number] Apr, Secondary infection of skin L08.89 and Keratotic lesion L57.0 [facility] [address] [place], [place] [id number] Mar, Hypertension I10 ; Bronchitis J40 and Cough R05 [facility] [address] [place], [place] [id number] Feb, [facility] [address] [place], [place] [id number] Feb, Skin tag L91.8 [facility] [address] [place], [place] [id number] Dec, Dysuria R30.0 and Vaginitis N76.0 [facility] [address] [place], [place] [id number] Dec, Constipation K59.00 ; Hypertension I10 ; Bronchitis J40 ; Post-tussive emesis R11.10 and Cough R05 [facility] [address] [place], [place] [id number] Dec, [facility] [address] [place], [place] [id number] Nov, Constipation K59.00 and Bronchitis J40 [facility] [address] [place], [place] [id number] Nov, [facility] [address] [place], [place] [id number] October, Dysuria R30.0 [facility] [address] [place], [place] [id number] October, Urinary frequency R35.0 and UTI (urinary tract infection) N39.[address] [place], [place] [id number] Sep, Intellectual disability F79 ; COPD (chronic obstructive pulmonary disease ) J44.9 ; Postmenopausal Z78.0 ; Hypertension I10 and Hyperlipidemia E78.[address] [place], [place] [id number] Aug, Pain with urination R30.9 ; Wrist pain, left M25.532 and Pain in scapula M89.8X1 [address] [place], [place] [id number] Jul, Pain with urination R30.9 and Vaginitis N76.[address] [place], [place] [id number] Jul, Screening for breast cancer Z12.[address] [place], [place] [id number] Jul, Acute upper respiratory infection, unspecified J06.9 and Other viral agents as the cause of diseases classified elsewhere B97.[address] [place], [place] [id number] Jun, Cellulitis L03.[address] [place], [place] [address] Jun, Gastritis 535.50 ; URI (upper respiratory infection) J06.9 and Ingrown toenail L60.[address] [place], [place] [id number] Apr, Gastritis 535.50 and Oral lesion K13.[address] [place], [place] [id number] Mar, Dysuria R30.0 and Pain of right scapula M89.8X1 [address] [place], [place] [id number] Mar, [address] [place], [place] [id number] Mar, [address] [place], [place] [id number] Feb, Right knee pain 719.[address] [place], [place] [id number] Feb, [address] [place], [place] [address] Feb, Right knee pain 719.46 [facility] [address] [place], [place] [address] Jan, Allergic rhinitis 477.9 and Cough 786.2 [facility] [address] [place], [place] [id number] Jan, [facility] [address] [place], [place] [address] Jan, Insect bites 919.4 [facility] [address] [place], [place] [id number] Jan, Fatigue 780.79 ; Gastritis 535.50 and Wound abscess 879.9 [facility] [address] [place], [place] [id number] Dec, [facility] [address], [address] [place], [place] [address] Nov, Fatigue 780.79 ; Weakness generalized 780.79 and Gastritis 535.50 [facility] [address] [place], [place] [id number] Nov, [facility] [address] [place], [place] [address] October, [facility] [address] [place], [place] [id number] October, [facility] [address] [place] [address] October, [facility] [address] [place], [place] [address] October, [facility] [address] [place], [place] [address] Sep, [facility] [address] [place], [place] [address] Sep, [facility] [address] [place], [place] [address] Sep, [facility] [address] [place], [place] [id number] Aug, [facility] [address] [place], [place] [address] Aug, [facility] [address] [place], [place] [address] Jul, [facility] [address] [place], [place] [address] Jul, [facility] [address] [place] [address] May, [facility] [address] [place], [place] [address] May, [facility] [address] [place], [place] [id number] Apr, [facility] [address] [place] [id number] Mar, [facility] [address] [place] [id number] Mar, [facility] [address] [place] [id number] Feb, [facility] [address] [place] [id number] Jan, [facility] [address] [place] [id number] Jan, [facility] [address] [place] [id number] Nov, [facility] [address] [place] [id number] October, [facility] [address] [place] [id number] October, [facility] [address] [place] [id number] Sep, [facility] [address] [place] [id number] Aug, [facility] [address] [place], [place] [id number] Jul, [facility] [address] [place], [place] [id number] Jun, [facility] [address] [place] [id number] May, [facility] [address] [place] [address] Mar, [facility] [address] [place], [place] [id number] Mar, [facility] [address] [place], [place] [address] Jan, [facility] [address] [place] [id number] Dec, [facility] [address] [place], [place] [id number] Nov, [facility] [address] [place] [id number] October, [facility] [address] [place] [address] Aug, [facility] [address] [place] [id number] Jul, [facility] [address] [place] [address] Jun, [facility] [address] [place] [address] Jun, [facility] [address] [place] [id number] Jun, [facility] [address] [place], [place] [address] May, [facility] [address] [place], [place] [address] Apr, [facility] [address] [place], [place] [address] Mar, [facility] [address] [place], [place] [id number] Mar, [facility] [address] [place], [place] [id number] Mar, IMMUNIZATIONS No Known Immunizations SOCIAL HISTORY Never Assessed REASON FOR VISIT [facility] Call PLAN OF CARE VITAL SIGNS MEDICATIONS Unknown [...]
--- OUTSIDE RECORDS SUMMARY | 2018-02-04 20:20 | XMS REPORT ---
Author Author Rogelio Prado [facility] Address [address], [address] [place], [place] [id number] Care Team Providers Care Shift Superintendent Caustic Cresylate Name Role Phone Rogelio Prado Unavailable PROBLEMS ALLERGIES No Information SOCIAL HISTORY No smoking Hx information available PLAN OF CARE VITAL SIGNS MEDICATIONS Unknown Medications RESULTS No Results PROCEDURES No Known procedures IMMUNIZATIONS No Known Immunizations MEDICAL (GENERAL) HISTORY
--- OUTSIDE RECORDS SUMMARY | 2018-02-04 20:21 | XMS REPORT ---
Author Author Rogelio Prado Organization [facility] Address [address], [address] [place], [place] [id number] Care Team Providers Care Financial Director Name Role Phone Clinton, Rogelio Unavailable PROBLEMS Type Condition ICD9-CM Code [id number] Code Onset Dates Condition Status SNOMED Code Problem Angina pectoris I20.9 Active 627530801 Problem COPD (chronic obstructive pulmonary disease) with acute bronchitis J44.0 Active [id number] Problem Constipation K59.00 Active 19847574 Problem Obstructive sleep apnea syndrome G47.33 Active 38268754 Problem Gastritis without bleeding, unspecified chronicity, unspecified gastritis type K29.70 Active 4365875 Problem Nocturnal hypoxia G47.34 Active 820562866 Problem Closed fracture of one rib of right side with routine healing, subsequent encounter S22.31XD Active 57991915 Problem Chronic sinusitis, unspecified J32.9 Active 414464086 Problem Acute sinusitis, unspecified J01.90 Active 57949775 Problem Episode of recurrent major depressive disorder, unspecified depression episode severity F33.9 Active 099237569 Problem Postmenopausal Z78.0 Active 85678053 Problem COPD (chronic obstructive pulmonary disease) J44.9 Active 87413397 Problem Hyperlipidemia E78.5 Active 37833278 Problem Intellectual disability F79 Active 71181683 Problem Hypertension I10 Active 76274416 Problem COPD exacerbation J44.1 Active 699661285 ALLERGIES No Information ENCOUNTERS Encounter Location Date Diagnosis [facility] [address] [place], [place] [id number] Aug, [facility] [address] [place], [place] [id number] October, [facility] [address] [place], [place] [id number] Sep, [facility] [address] [place] [id number] Sep, [facility] [address], [address] [place], [place] [id number] Sep, Hypertension I10 ; COPD (chronic obstructive pulmonary disease) J44.9 ; Nocturnal hypoxia G47.34 and Obstructive sleep apnea syndrome G47.33 [facility] [address] [place], [place] [id number] Sep, [facility] [address] [place], [place] [id number] Sep, [facility] [address] [place], [place] [id number] Aug, [facility] [address] [place] [id number] Aug, [facility] [address] [place], [place] [id number] Aug, Encounter for screening mammogram for malignant neoplasm of breast Z12.31 ; Tinnitus of right ear H93.11 and Obstructive sleep apnea G47.33 [facility] [address] [place], [place] [id number] Aug, [facility] [address] [place], [place] [id number] Aug, Encounter for Medicare annual wellness exam Z00.00 and Advanced directives , counseling/discussion Z71.89 [facility] [address] [place], [place] [id number] Jul, [facility] [address] [place] [id number] Jul, [facility] [address] [place] [id number] Jul, [facility] [address] [place] [id number] Jul, Right sided abdominal pain R10.9 ; Hypertension I10 ; COPD (chronic obstructive pulmonary disease) J44.9 and Hyperlipidemia E78.5 [facility] [address] [place], [place] [id number] Jul, [facility] [address] [place] [address] Jul, [facility] [address] [place], [place] [id number] Jul, Acute gastritis without hemorrhage, unspecified gastritis type K29.00 ; Diarrhea, unspecified type R19.7 ; Hypertension I10 ; COPD (chronic obstructive pulmonary disease) J44.9 and Hyperlipidemia E78.5 [facility] [address] [place], [place] [id number] Jul, [facility] [address] [place], [place] [id number] Jun, Acute lower respiratory infection J22 ; Other fatigue R53.83 and History of influenza Z87.09 [facility] [address] [place] [id number] Jun, [facility] [address] [place] [id number] Jun, [facility] [address] [place] [id number] Jun, Acute lower respiratory infection J22 ; Other fatigue R53.83 and History of influenza Z87.09 [facility] [address] [place] [id number] Jun, [facility] [address] [place] [id number] Jun, [facility] [address] [place] [id number] Jun, [facility] [address] [place] [id number] Jun, [facility] [address] [place] [address] Jun, [facility] [address] [place] [id number] Jun, Acute pain of left shoulder M25.512 [facility] [address] [place] [id number] Jun, Acute pain of left shoulder M25.512 ; Gastritis without bleeding, unspecified chronicity, unspecified gastritis type K29.70 ; Hypertension I10 ; COPD (chronic obstructive pulmonary disease) J44.9 and Hyperlipidemia E78.5 [facility] [address] [place] [id number] Jun, [facility] [address] [place] [id number] Jun, [facility] [address] [place] [id number] May, [facility] [address] [place], [place] [id number] May, Acute pain of left shoulder M25.512 ; Intellectual disability F79 and Closed fracture of one rib of right side with routine healing, subsequent encounter S22.31XD [facility] [address] [place] [id number] May, [facility] [address] [place] [address] May, [facility] [address] [place] [address] May, [facility] [address] [place] [id number] May, Acute bronchitis, unspecified organism J20.9 ; Hypertension I10 ; COPD ( chronic obstructive pulmonary disease) J44.9 ; Hyperlipidemia E78.5 ; Nocturnal hypoxia G47.34 and Obstructive sleep apnea syndrome G47.33 [facility] [address] [place], [place] [id number] Apr, Pain with urination R30.9 ; Hypertension I10 ; COPD (chronic obstructive pulmonary disease) J44.9 ; Hyperlipidemia E78.5 and Acute bronchitis, unspecified organism J20.9 [facility] [address] [place], [place] [id number] Apr, Hypertension I10 [facility] [address] [place], [place] [address] Apr, Acute sinusitis, unspecified J01.90 [facility] [address] [place], [place] [id number] Apr, [facility] [address] [place], [place] [id number] Mar, [facility] [address] [place], [place] [address] Mar, Other specified bacterial agents as the cause of diseases classified elsewhere B96.89 and Acute sinusitis, unspecified J01.90 [facility] [address] [place], [place] [id number] Mar, Closed fracture of one rib of right side with routine healing, subsequent encounter S22.31XD [facility] [address] [place], [place] [address] Mar, [facility] [address] [place], [place] [id number] Mar, COPD (chronic obstructive pulmonary disease) J44.9 ; Closed fracture of one rib of right side with routine healing, subsequent encounter S22.31XD ; Hypertension I10 ; Constipation K59.00 ; Angina pectoris I20.9 ; Depression, unspecified depression type F32.9 and Left ear pain H92.02 [facility] [address] [place], [place] [address] Mar, Elevated glucose R73.09 [facility] [address] [place], [place] [id number] Mar, [facility] [address] [place], [place] [id number] Mar, Left-sided chest wall pain R07.89 and Hypertension I10 [facility] [address] [place], [place] [address] Feb, [facility] [address] [place], [place] [id number] Feb, Hypertension I10 [facility] [address] [place], [place] [id number] Feb, Closed fracture of one rib of right side, initial encounter S22.31XA ; Intellectual disability F79 ; COPD (chronic obstructive pulmonary disease) J44.9 ; Hyperlipidemia E78.5 and Hypertension I10 [facility] [address] [place], [place] [id number] Feb, [facility] [address] [place] [id number] Feb, Dysuria R30.0 [facility] [address] [place], [place] [id number] Jan, Closed fracture of one rib of right side, initial encounter S22.31XA [facility] [address] [place], [place] [id number] Jan, [facility] [address] [place] [address] Jan, [facility] [address] [place], [place] [id number] Jan, Contusion of left side of back, initial encounter S20.222A [facility] [address] [place], [place] [id number] Jan, [facility] [address] [place] [address] Dec, [facility] [address] [place], [place] [address] Dec, [facility] [address] [place], [place] [id number] Dec, COPD (chronic obstructive pulmonary disease) J44.9 and Hypertension I10 [facility] [address] [place], [place] [id number] Dec, [facility] [address] [place] [id number] Dec, [facility] [address] [place], [place] [address] Dec, Skin irritation R23.8 [facility] [address] [place], [place] [id number] Dec, [facility] [address] [place], [place] [address] Dec, [facility] [address] [place], [place] [address] Dec, [facility] [address] [place], [place] [address] Dec, [facility] [address] [place] [id number] October, Dysuria R30.0 and Pain of left calf M79.662 [facility] [address] [place], [place] [id number] October, Pain of right great toe M79.674 and Overgrown toenails L60.2 [facility] [address] [place], [place] [address] Sep, [facility] [address] [place], [place] [address] Sep, [facility] [address] [place] [id number] Sep, Pain with urination R30.9 ; Abdominal pain, unspecified location R10.9 and Loose stools R19.5 [facility] [address] [place], [place] [id number] Sep, Hypertension I10 [facility] [address] [place], [place] [address] Sep, [facility] [address] [place], [place] [address] Sep, Acute cystitis with hematuria N30.01 [facility] [address] [place], [place] [address] Sep, [facility] [address] [place], [place] [address] Sep, Urinary frequency R35.0 [facility] [address] [place], [place] [id number] Aug, [facility] [address] [place], [place] [id number] Aug, Screening for breast cancer Z12.39 [facility] [address] [place], [place] [id number] Aug, [facility] [address] [place], [place] [address] Aug, [facility] [address] [place] [id number] Aug, [facility] [address] [place], [place] [address] Aug, [facility] [address] [place] [address] Aug, [facility] [address] [place], [place] [id number] Aug, [facility] [address] [place], [place] [address] Aug, [facility] [address] [place] [address] Aug, [facility] [address] [place] [address] Jul, Dysuria R30.0 [facility] [address] [place], [place] [id number] Jul, Chest wall pain R07.89 and Myofascial pain M79.1 [facility] [address] [place], [place] [address] Jul, [facility] [address] [place] [address] Jul, Depression, unspecified depression type F32.9 ; Chronic obstructive pulmonary disease, unspecified COPD type J44.9 ; Hypertension I10 ; Angina pectoris I20.9 and Costochondritis M94.0 [facility] [address] [place], [place] [address] Jun, Acute non-recurrent maxillary sinusitis J01.00 [facility] [address] [place], [place] [id number] Jun, [facility] [address] [place] [address] Jun, [facility] [address] [place] [id number] Jun, [facility] [address] [place], [place] [id number] Jun, [facility] [address] [place] [id number] Jun, [facility] [address] [place], [place] [address] Jun, Left-sided chest wall pain R07.89 and Cough due to bronchospasm J98.01 [facility] [address] [place], [place] [id number] Jun, [facility] [address] [place], [place] [address] May, [facility] [address] [place], [place] [address] May, Left-sided chest wall pain R07.89 [facility] [address] [place], [place] [id number] May, Left-sided chest wall pain R07.89 and Cough due to bronchospasm J98.01 [facility] [address] [place], [place] [address] May, [facility] [address] [place], [place] [id number] May, Encounter for Medicare annual wellness exam Z00.00 ; Advanced directives, counseling/discussion Z71.89 ; Screening for osteoporosis Z13.820 ; Bilateral hearing loss, unspecified hearing loss type H91.93 ; Intellectual disability F79 ; COPD (chronic obstructive pulmonary disease) J44.9 ; Postmenopausal Z78.0 ; Hypertension I10 ; Hyperlipidemia E78.5 ; Constipation K59.00 and Angina pectoris I20.9 [facility] [address], [facility] [address] [place], [place] [id number] May, [facility] [address], [facility] [address] [place], [place] [id number] May, Left-sided chest wall pain R07.89 and Chest wall contusion, left, initial encounter S20.212A [address] [place], [place] [address] May, Dog bite, subsequent encounter W54.0XXD [address] [id number] May, Open bite of right hand, initial encounter S61.451A and Bitten by dog, initial encounter W54.0XXA [facility] [address] [place], [place] [address] May, [facility] [address], [facility] [address] [place], [place] [id number] May, [facility] [address], [facility] [address] [place], [place] [id number] Apr, Chest congestion R09.89 ; COPD exacerbation J44.1 and Dermatitis L30.[address] [place], [place] [id number] Apr, Secondary infection of skin L08.89 and Keratotic lesion L57.[address] [place], [place] [id number] Mar, Hypertension I10 ; Bronchitis J40 and Cough R05 [address], [facility] [address] [place], [place] [id number] Feb, [facility] [address] [facility] 200 [place], [place] [id number] Feb, Skin tag L91.[address] [place], [place] [address] Dec, Dysuria R30.0 and Vaginitis N76.[address], [facility] [address] [place], [place] [id number] Dec, Constipation K59.00 ; Hypertension I10 ; Bronchitis J40 ; Post-tussive emesis R11.10 and Cough R05 [address], [facility] [address] [place], [place] [id number] Dec, [address], [facility] [address] [place] [id number] Nov, Constipation K59.00 and Bronchitis J40 [address] [place], [place] [id number] Nov, [address] [place], [place] [id number] October, Dysuria R30.[address] [place], [place] [id number] October, Urinary frequency R35.0 and UTI (urinary tract infection) N39.[address], [facility] [address] [place], [place] [id number] Sep, Intellectual disability F79 ; COPD (chronic obstructive pulmonary disease ) J44.9 ; Postmenopausal Z78.0 ; Hypertension I10 and Hyperlipidemia E78.[address], [facility] [address] [place], [place] [id number] Aug, Pain with urination R30.9 ; Wrist pain, left M25.532 and Pain in scapula M89.8X1 [address] [place], [place] [id number] Jul, Pain with urination R30.9 and Vaginitis N76.[address] [place], [place] [address] Jul, Screening for breast cancer Z12.[address] [place], [place] [id number] Jul, Acute upper respiratory infection, unspecified J06.9 and Other viral agents as the cause of diseases classified elsewhere B97.[address] [place], [place] [address] Jun, Cellulitis L03.[address], [facility] [address] [place], [place] [address] Jun, Gastritis 535.50 ; URI (upper respiratory infection) J06.9 and Ingrown toenail L60.[address], [facility] [address] [place], [place] [address] Apr, Gastritis 535.50 and Oral lesion K13.[address] [place], [place] [address] Mar, Dysuria R30.0 and Pain of right scapula M89.8X1 [facility] [address] [place], [place] [address] Mar, [facility] [address] [place], [place] [id number] Mar, [facility] [address] [place], [place] [address] Feb, Right knee pain 719.46 [facility] [address] [place], [place] [id number] Feb, [facility] [address] [place], [place] [address] Feb, Right knee pain 719.46 [facility] [address] [place], [place] [address] Jan, Allergic rhinitis 477.9 and Cough 786.2 [facility] [address] [place], [place] [id number] Jan, [facility] [address] [place], [place] [address] Jan, Insect bites 919.4 [facility] [address] [place], [place] [address] Jan, Fatigue 780.79 ; Gastritis 535.50 and Wound abscess 879.9 [facility] [address] [place], [place] [address] Dec, [facility] [address] [place], [place] [id number] Nov, Fatigue 780.79 ; Weakness generalized 780.79 and Gastritis 535.50 [facility] [address] [place], [place] [id number] Nov, [facility] [address] [place], [place] [address] October, [facility] [address] [place], [place] [address] October, [facility] [address] [place], [place] [id number] October, [facility] [address] [place], [place] [address] October, [facility] [address] [place] [address] Sep, [facility] [address] [place], [place] [address] Sep, [facility] [address] [place], [place] [address] Sep, [facility] [address] [place] [id number] Aug, [facility] [address] [place] [id number] Aug, [facility] [address] [place] [id number] Jul, [facility] [address] [place] [id number] Jul, [facility] [address] [place] [id number] May, [facility] [address] [place] [id number] May, [facility] [address] [place] [address] Apr, [facility] [address] [place] [id number] Mar, [facility] [address] [place] [id number] Mar, [facility] [address] [place] [id number] Feb, [facility] [address] [place] [id number] Jan, [facility] [address] [place] [id number] Jan, [facility] [address] [place] [id number] Nov, [facility] [address] [place] [id number] October, [facility] [address] [place], [place] [id number] October, [facility] [address] [place] [id number] Sep, [facility] [address] [place] [id number] Aug, [facility] [address] [place] [id number] Jul, [facility] [address] [place] [id number] Jun, [facility] [address] [place] [id number] May, [facility] [address] [place] [address] Mar, [facility] [address] [place] [id number] Mar, [facility] [address] [place] [id number] Jan, [facility] [address] [place] [id number] Dec, [facility] [address] [place] [address] Nov, [facility] [address] [place], [place] [address] October, [facility] [address] [place], [place] [address] Aug, [facility] [address] [place], [place] [address] Jul, [facility] [address] [place], [place] [address] Jun, [facility] [address] [place], [place] [address] Jun, [facility] [address] [place], [place] [address] Jun, [facility] [address] [place], [place] [id number] May, [facility] [address] [place], [place] [address] Apr, [facility] [address] [place], [place] [address] Mar, [facility] [address] [place], [place] [address] Mar, [facility] [address] [place], [place] [id number] Mar, IMMUNIZATIONS No Known Immunizations SOCIAL HISTORY Never Assessed REASON FOR VISIT recertify for home health PLAN OF CARE VITAL SIGNS MEDICATIONS Unknown [...]
--- OUTSIDE RECORDS SUMMARY | 2018-02-04 20:21 | XMS REPORT ---
Author Author Osmingill Sarinaandrew Bernal [facility] Address [address], [address] [place], [place] [id number] Care Team Providers Care Mission Analyst Name Role Phone Sarina Turk Unavailable PROBLEMS Type Condition ICD9-CM Code GWS15-DV Code Onset Dates Condition Status SNOMED Code Problem Angina pectoris I20.9 Active 237904686 Problem COPD (chronic obstructive pulmonary disease) with acute bronchitis J44.0 Active [id number] Problem Constipation K59.00 Active 16114481 Problem Obstructive sleep apnea syndrome G47.33 Active 33893510 Problem Gastritis without bleeding, unspecified chronicity, unspecified gastritis type K29.70 Active 5881995 Problem Nocturnal hypoxia G47.34 Active 814879656 Problem Closed fracture of one rib of right side with routine healing, subsequent encounter S22.31XD Active 76687561 Problem Chronic sinusitis, unspecified J32.9 Active 912768619 Problem Acute sinusitis, unspecified J01.90 Active 70508873 Problem Episode of recurrent major depressive disorder, unspecified depression episode severity F33.9 Active 823518251 Problem Postmenopausal Z78.0 Active 91081216 Problem COPD (chronic obstructive pulmonary disease) J44.9 Active 16309992 Problem Hyperlipidemia E78.5 Active 44746916 Problem Intellectual disability F79 Active 05958101 Problem Hypertension I10 Active 60862545 Problem COPD exacerbation J44.1 Active [id number] ALLERGIES Substance Reaction Event Type Date Status PCN Unknown Drug Allergy Sep, Active Zithromax Unknown Drug Allergy Sep, Active ENCOUNTERS Encounter Location Date Diagnosis [facility] [address] [place], [place] [id number] Aug, [facility] [address] [place], [place] [id number] October, [facility] [address] [place] [id number] Sep, [facility] [address] [place] [id number] Sep, [facility] [address] [place], [place] [id number] Sep, Hypertension I10 ; COPD (chronic obstructive pulmonary disease) J44.9 ; Nocturnal hypoxia G47.34 and Obstructive sleep apnea syndrome G47.33 [facility] [address] [place], [place] [id number] Sep, [facility] [address] [place], [place] [id number] Sep, [facility] [address] [place] [address] Aug, [facility] [address] [place] [address] Aug, [facility] [address] [place] [id number] Aug, Encounter for screening mammogram for malignant neoplasm of breast Z12.31 ; Tinnitus of right ear H93.11 and Obstructive sleep apnea G47.33 [facility] [address] [place] [id number] Aug, [facility] [address] [place] [id number] Aug, Encounter for Medicare annual wellness exam Z00.00 and Advanced directives , counseling/discussion Z71.89 [facility] [address] [place], [place] [id number] Jul, [facility] [address] [place] [id number] Jul, [facility] [address] [place] [id number] Jul, [facility] [address] [place] [id number] Jul, Right sided abdominal pain R10.9 ; Hypertension I10 ; COPD (chronic obstructive pulmonary disease) J44.9 and Hyperlipidemia E78.5 [facility] [address] [place], [place] [id number] Jul, [facility] [address] [place] [address] Jul, [facility] [address] [place] [id number] Jul, Acute gastritis without hemorrhage, unspecified gastritis type K29.00 ; Diarrhea, unspecified type R19.7 ; Hypertension I10 ; COPD (chronic obstructive pulmonary disease) J44.9 and Hyperlipidemia E78.5 [facility] [address] [place], [place] [id number] Jul, [facility] [address], [address] [place] [id number] Jun, Acute lower respiratory infection J22 ; Other fatigue R53.83 and History of influenza Z87.09 [facility] [address] [place] [id number] Jun, [facility] [address] [place] [id number] Jun, [facility] [address] [place] [id number] Jun, Acute lower respiratory infection J22 ; Other fatigue R53.83 and History of influenza Z87.09 [facility] [address] [place] [address] Jun, [facility] [address] [place] [address] Jun, [facility] [address] [place] [id number] Jun, [facility] [address] [place] [id number] Jun, [facility] [address] [place] [address] Jun, [facility] [address] [place] [address] Jun, Acute pain of left shoulder M25.512 [facility] [address] [place] [address] Jun, Acute pain of left shoulder M25.512 ; Gastritis without bleeding, unspecified chronicity, unspecified gastritis type K29.70 ; Hypertension I10 ; COPD (chronic obstructive pulmonary disease) J44.9 and Hyperlipidemia E78.5 [facility] [address] [place] [id number] Jun, [facility] [address] [place] [id number] Jun, [facility] [address] [place] [id number] May, [facility] [address] [place] [id number] May, Acute pain of left shoulder M25.512 ; Intellectual disability F79 and Closed fracture of one rib of right side with routine healing, subsequent encounter S22.31XD [facility] [address] [place] [id number] May, [facility] [address] [place] [id number] May, [facility] [address] [place] [address] May, [facility] [address] [place], [place] [id number] May, Acute bronchitis, unspecified organism J20.9 ; Hypertension I10 ; COPD ( chronic obstructive pulmonary disease) J44.9 ; Hyperlipidemia E78.5 ; Nocturnal hypoxia G47.34 and Obstructive sleep apnea syndrome G47.33 [facility] [address] [place], [place] [id number] Apr, Pain with urination R30.9 ; Hypertension I10 ; COPD (chronic obstructive pulmonary disease) J44.9 ; Hyperlipidemia E78.5 and Acute bronchitis, unspecified organism J20.9 [facility] [address] [place], [place] [id number] Apr, Hypertension I10 [facility] [address] [place], [place] [id number] Apr, Acute sinusitis, unspecified J01.90 [facility] [address] [place] [id number] Apr, [facility] [address] [place] [id number] Mar, [facility] [address] [place], [place] [id number] Mar, Other specified bacterial agents as the cause of diseases classified elsewhere B96.89 and Acute sinusitis, unspecified J01.90 [facility] [address] [place], [place] [id number] Mar, Closed fracture of one rib of right side with routine healing, subsequent encounter S22.31XD [facility] [address] [place], [place] [id number] Mar, [facility] [address] [place], [place] [address] Mar, COPD (chronic obstructive pulmonary disease) J44.9 ; Closed fracture of one rib of right side with routine healing, subsequent encounter S22.31XD ; Hypertension I10 ; Constipation K59.00 ; Angina pectoris I20.9 ; Depression, unspecified depression type F32.9 and Left ear pain H92.02 [facility] [address] [place], [place] [id number] Mar, Elevated glucose R73.09 [facility] [address] [place], [place] [id number] Mar, [facility] [address] [place], [place] [address] Mar, Left-sided chest wall pain R07.89 and Hypertension I10 [facility] [address] [place] [address] Feb, [facility] [address] [place], [place] [address] Feb, Hypertension I10 [facility] [address] [place] [address] Feb, Closed fracture of one rib of right side, initial encounter S22.31XA ; Intellectual disability F79 ; COPD (chronic obstructive pulmonary disease) J44.9 ; Hyperlipidemia E78.5 and Hypertension I10 [facility] [address] [place] [address] Feb, [facility] [address] [place] [id number] Feb, Dysuria R30.0 [facility] [address] [place] [id number] Jan, Closed fracture of one rib of right side, initial encounter S22.31XA [facility] [address] [place] [address] Jan, [facility] [address] [place], [place] [id number] Jan, [facility] [address] [place], [place] [address] Jan, Contusion of left side of back, initial encounter S20.222A [facility] [address] [place] [address] Jan, [facility] [address] [place] [address] Dec, [facility] [address] [place] [address] Dec, [facility] [address] [place], [place] [id number] Dec, COPD (chronic obstructive pulmonary disease) J44.9 and Hypertension I10 [facility] [address] [place] [address] Dec, [facility] [address] [place] [address] Dec, [facility] [address] [place], [place] [address] Dec, Skin irritation R23.8 [facility] [address] [place] [address] Dec, [facility] [address] [place] [id number] Dec, [facility] [address] [place] [id number] Dec, [facility] [address] [place] [address] Dec, [facility] [address] [place], [place] [address] October, Dysuria R30.0 and Pain of left calf M79.662 [facility] [address] [place], [place] [address] October, Pain of right great toe M79.674 and Overgrown toenails L60.2 [facility] [address] [place], [place] [address] Sep, [facility] [address] [place], [place] [address] Sep, [facility] [address] [place], [place] [address] Sep, Pain with urination R30.9 ; Abdominal pain, unspecified location R10.9 and Loose stools R19.5 [facility] [address] [place], [place] [id number] Sep, Hypertension I10 [facility] [address] [place], [place] [address] Sep, [facility] [address] [place], [place] [address] Sep, Acute cystitis with hematuria N30.01 [facility] [address] [place], [place] [address] Sep, [facility] [address] [place], [place] [address] Sep, Urinary frequency R35.0 [facility] [address] [place], [place] [address] Aug, [facility] [address] [place], [place] [address] Aug, Screening for breast cancer Z12.39 [facility] [address] [place], [place] [address] Aug, [facility] [address] [place] [address] Aug, [facility] [address] [place], [place] [address] Aug, [facility] [address] [place], [place] [address] Aug, [facility] [address] [place] [address] Aug, [facility] [address] [place] [address] Aug, [facility] [address] [place] [address] Aug, [facility] [address] [place] [id number] Aug, [facility] [address] [place], [place] [address] Jul, Dysuria R30.0 [facility] [address] [place], [place] [address] Jul, Chest wall pain R07.89 and Myofascial pain M79.1 [facility] [address] [place], [place] [address] Jul, [facility] [address] [place] [id number] Jul, Depression, unspecified depression type F32.9 ; Chronic obstructive pulmonary disease, unspecified COPD type J44.9 ; Hypertension I10 ; Angina pectoris I20.9 and Costochondritis M94.0 [facility] [address] [place], [place] [address] Jun, Acute non-recurrent maxillary sinusitis J01.00 [facility] [address] [place], [place] [address] Jun, [facility] [address] [place] [address] Jun, [facility] [address] [place] [address] Jun, [facility] [address] [place] [address] Jun, [facility] [address] [place] [address] Jun, [facility] [address] [place] [address] Jun, Left-sided chest wall pain R07.89 and Cough due to bronchospasm J98.01 [facility] [address] [place], [place] [address] Jun, [facility] [address] [place], [place] [id number] May, [facility] [address] [place] [address] May, Left-sided chest wall pain R07.89 [facility] [address] [place], [place] [address] May, Left-sided chest wall pain R07.89 and Cough due to bronchospasm J98.01 [facility] [address] [place], [place] [id number] May, [facility] [address], [facility] [address] [place], [place] [address] May, Encounter for Medicare annual wellness exam Z00.00 ; Advanced directives, counseling/discussion Z71.89 ; Screening for osteoporosis Z13.820 ; Bilateral hearing loss, unspecified hearing loss type H91.93 ; Intellectual disability F79 ; COPD (chronic obstructive pulmonary disease) J44.9 ; Postmenopausal Z78.0 ; Hypertension I10 ; Hyperlipidemia E78.5 ; Constipation K59.00 and Angina pectoris I20.[address] [place], [place] [id number] May, [address] [place] [address] May, Left-sided chest wall pain R07.89 and Chest wall contusion, left, initial encounter S20.212A [address] [place], [place] [address] May, Dog bite, subsequent encounter W54.0XXD [address] [place], [place] [id number] May, Open bite of right hand, initial encounter S61.451A and Bitten by dog, initial encounter W54.0XXA [address], [facility] [address] [place], [place] [id number] May, [address], [facility] [address] [place], [place] [address] May, [address], [facility] [address] [place], [place] [address] Apr, Chest congestion R09.89 ; COPD exacerbation J44.1 and Dermatitis L30.[address], [facility] [address] [place], [place] [id number] Apr, Secondary infection of skin L08.89 and Keratotic lesion L57.[address], [facility] [address] [place], [place] [id number] Mar, Hypertension I10 ; Bronchitis J40 and Cough R05 [address] [place], [place] [id number] Feb, [address], [address] [place], [place] [address] Feb, Skin tag L91.[address] [place], [place] [id number] Dec, Dysuria R30.0 and Vaginitis N76.0 [facility] [address] [place], [place] [id number] Dec, Constipation K59.00 ; Hypertension I10 ; Bronchitis J40 ; Post-tussive emesis R11.10 and Cough R05 [facility] [address] [place], [place] [id number] Dec, [facility] [address] [place], [place] [address] Nov, Constipation K59.00 and Bronchitis J40 [facility] [address] [place], [place] [address] Nov, [facility] [address], [address] [place], [place] [id number] October, Dysuria R30.[address] [place], [place] [address] October, Urinary frequency R35.0 and UTI (urinary tract infection) N39.[address] [place], [place] [id number] Sep, Intellectual disability F79 ; COPD (chronic obstructive pulmonary disease ) J44.9 ; Postmenopausal Z78.0 ; Hypertension I10 and Hyperlipidemia E78.[address] [place], [place] [id number] Aug, Pain with urination R30.9 ; Wrist pain, left M25.532 and Pain in scapula M89.8X1 [address], [address] [place], [place] [address] Jul, Pain with urination R30.9 and Vaginitis N76.[address] [place], [place] [id number] Jul, Screening for breast cancer Z12.[address] [place], [place] [id number] Jul, Acute upper respiratory infection, unspecified J06.9 and Other viral agents as the cause of diseases classified elsewhere B97.[address] [place], [place] [id number] Jun, Cellulitis L03.[address] [place], [place] [address] Jun, Gastritis 535.50 ; URI (upper respiratory infection) J06.9 and Ingrown toenail L60.[address] [place], [place] [id number] Apr, Gastritis 535.50 and Oral lesion K13.70 [facility] [address] [place], [place] [id number] Mar, Dysuria R30.0 and Pain of right scapula M89.8X1 [facility] [address] [place], [place] [id number] Mar, [facility] [address], [address] [place], [place] [address] Mar, [facility] [address] [place], [place] [address] Feb, Right knee pain 719.46 [facility] [address] [place], [place] [id number] Feb, [facility] [address] [place], [place] [address] Feb, Right knee pain 719.46 [facility] [address] [place], [place] [id number] Jan, Allergic rhinitis 477.9 and Cough 786.2 [facility] [address] [place], [place] [address] Jan, [facility] [address] [place], [place] [id number] Jan, Insect bites 919.4 [facility] [address] [place], [place] [id number] Jan, Fatigue 780.79 ; Gastritis 535.50 and Wound abscess 879.9 [facility] [address] [place], [place] [address] Dec, [facility] [address] [place], [place] [address] Nov, Fatigue 780.79 ; Weakness generalized 780.79 and Gastritis 535.50 [facility] [address] [place], [place] [id number] Nov, [facility] [address] [place], [place] [address] October, [facility] [address] [place], [place] [id number] October, [facility] [address] [place], [place] [id number] October, [facility] [address] [place] [address] October, [facility] [address] [place], [place] [address] Sep, [facility] [address] [place], [place] [address] Sep, [facility] [address] [place] [address] Sep, [facility] [address] [place] [id number] Aug, [facility] [address] [place] [id number] Aug, [facility] [address] [place] [address] Jul, [facility] [address] [place] [address] Jul, [facility] [address] [place] [address] May, [facility] [address] [place] [address] May, [facility] [address] [place] [address] Apr, [facility] [address] [place] [address] Mar, [facility] [address] [place] [address] Mar, [facility] [address] [place] [address] Feb, [facility] [address] [place], [place] [address] Jan, [facility] [address] [place], [place] [address] Jan, [facility] [address] [place], [place] [address] Nov, [facility] [address] [place], [place] [address] October, [facility] [address] [place] [address] October, [facility] [address] [place] [address] Sep, [facility] [address] [place], [place] [address] Aug, [facility] [address] [place] [address] Jul, [facility] [address] [place] [address] Jun, [facility] [address] [place] [address] May, [facility] [address] [place] [address] Mar, [facility] [address] [place] [address] Mar, [facility] [address] [place] [address] Jan, [facility] [address] [place], [place] [id number] Dec, [facility] [address] [place] [address] Nov, [facility] [address] [place] [address] October, [facility] [address] [place] [address] Aug, [facility] [address] [place] [address] Jul, [facility] [address] [place], [place] [address] Jun, [facility] [address] [place] [address] Jun, [facility] [address] [place] [address] Jun, [facility] [address] [place] [address] May, [facility] [address] [place] [id number] Apr, [facility] [address] [place], [place] [address] Mar, [facility] [address] [place] [address] Mar, [facility] [address] [place], [place] [address] Mar, IMMUNIZATIONS No Known Immunizations SOCIAL HISTORY Never Assessed REASON FOR VISIT Face to Face for oxygen and CPAP PLAN OF CARE Activity Details Follow Up prn Reason: VITAL SIGNS Weight 202.2 lbs 2017-10-15 Heart Rate 72 /min 2017-10-15 Height 64 in 2017-10-15 Oximetry 99 % 2017-10-15 BMI 34.70 kg/m2 2017-10-15 Blood pressure systolic 110 mm Hg 2017-10-15 Blood pressure diastolic 80 mm Hg 2017-10-15 MEDICATIONS Medication Instructions Dosage Frequency Start Date End Date Duration Status Alendronate Sodium 5 MG Orally Once a day 1 tablet 24h May, 30 day(s) Active Lisinopril-Hydrochlorothiazide 20-12.5 TAKE TWO TABLETS BY MOUTH TWICE A DAY 30 Active Nitrostat 0.4 MG Sublingual prn as directed Jan, Active Ventolin HFA 108 (90 Base) MCG/ACT Inhalation every 4 hrs 2 puffs as needed 4h Active Trazodone HCl 100 MG Orally Once a day 1.5 tablet at bedtime 24h Active Aspirin Adult Low Dose 81 MG Orally Once a day 1-2 tablet 24h Active Nexium 40 TAKE ONE CAPSULE BY MOUTH DAILY 30 Active Wentworth 5-325 MG Orally every 6 hrs 1 tablet as needed 6h Jun, 10 days Active Claritin 10 TAKE ONE TABLET BY MOUTH DAILY 90 Active Celexa 40 MG Orally Once a day 0.5 tablet 24h Active Albuterol Sulfate (2.5 MG/3ML) 0.083% Inhalation every 4 hrs prn 3 ml Jun, Active Linzess 145 MCG PO QD 1 capsule 24h Active Zantac 150 MG Orally BID 1 tablet 12h Jul, 15 days Active Symbicort 160-4.5 INHALE TWO PUFFS BY MOUTH EVERY 12 HOURS 30 Active Triamcinolone Acetonide 0.1 APPLY TO AFFECTED AREA(S) TWO TIMES A DAY 30 Active Multivitamin Adult - Active Metoprolol Tartrate 50 TAKE ONE TABLET BY MOUTH TWICE A DAY 30 Active Ventolin HFA 90 INHALE ONE TO TWO PUFFS BY MOUTH EVERY 4 HOURS NEEDED FOR SHORTNESS OF BREATH FOR COUGH 16 Active PredniSONE 20 MG Orally Once a day 1 tablet 24h Sep, 5 days Active Meloxicam 15 MG Orally Once a day 1 tablet 24h 30 days Active RESULTS No Results [...]
--- OUTSIDE RECORDS SUMMARY | 2018-02-04 20:22 | XMS REPORT ---
Author Author [facility] Address [address], [address] [place], [place] [id number] Care Team Providers Care Bending Machine Operator Name Role Phone OsminSarina garland Unavailable PROBLEMS Type Condition ICD9-CM Code [id number] Code Onset Dates Condition Status SNOMED Code Problem Constipation K59.00 Active 71962741 Problem Depression, unspecified depression type F32.9 Active 74201844 Problem COPD (chronic obstructive pulmonary disease) with acute bronchitis J44.0 Active 183219124063223 Problem Gastritis without bleeding, unspecified chronicity, unspecified gastritis type K29.70 Active 8405679 Problem Chronic sinusitis, unspecified J32.9 Active 680508422 Problem Obstructive sleep apnea syndrome G47.33 Active 83474321 Problem Closed fracture of one rib of right side with routine healing, subsequent encounter S22.31XD Active 53858566 Problem Acute sinusitis, unspecified J01.90 Active 54159908 Problem Nocturnal hypoxia G47.34 Active 450753079 Problem Hyperlipidemia E78.5 Active 23675944 Problem COPD (chronic obstructive pulmonary disease) J44.9 Active 87183745 Problem Intellectual disability F79 Active 37381213 Problem Hypertension I10 Active 72792874 Problem COPD exacerbation J44.1 Active 063980703 Problem Postmenopausal Z78.0 Active 14758415 Problem Angina pectoris I20.9 Active 706181125 ALLERGIES No Information SOCIAL HISTORY Never Assessed PLAN OF CARE Activity Details Follow Up prn Reason: VITAL SIGNS Weight 203 lbs 2017-07-01 Heart Rate 60 /min 2017-07-01 Height 64 in 2017-07-01 Oximetry 95 % 2017-07-01 BMI 34.84 kg/m2 2017-07-01 Blood pressure systolic 118 mm Hg 2017-07-01 Blood pressure diastolic 88 mm Hg 2017-07-01 MEDICATIONS Medication Instructions Dosage Frequency Start Date End Date Duration Status Alendronate Sodium 5 MG Orally Once a day 1 tablet 24h May, 30 day(s) Active Trazodone HCl 100 MG Orally Once a day 1.5 tablet at bedtime 24h Active Aspirin Adult Low Dose 81 MG Orally Once a day 1-2 tablet 24h Active Albuterol Sulfate (2.5 MG/3ML) 0.083% Inhalation every 4 hrs prn 3 ml Jun, Active Symbicort 160-4.5 Inhalation Twice a day INHALE TWO PUFFS BY MOUTH EVERY 12 HOURS 12h Active Nitrostat 0.4 MG Sublingual prn as directed Jan, Active Multivitamin Adult - Active [place] 5-325 MG Orally every 6 hrs 1 tablet as needed 6h Jun, 10 days Active Alendronate Sodium 5 TAKE ONE TABLET BY MOUTH DAILY 30 Active Linzess 145 MCG PO QD 1 capsule 24h Active Claritin 10 TAKE ONE TABLET BY MOUTH DAILY 90 Active Celexa 40 MG Orally Once a day 0.5 tablet 24h Active Nexium 40 TAKE ONE CAPSULE BY MOUTH DAILY 30 Active Meloxicam 15 MG Orally twice a day TAKE ONE TABLET BY MOUTH TWICE A DAY 12h 30 days Active Flonase 50 USE ONE SPRAY IN EACH NOSTRIL TWO TIMES A DAY Active Triamcinolone Acetonide 0.1 APPLY TO AFFECTED AREA(S) TWO TIMES A DAY 30 Active Lisinopril-Hydrochlorothiazide 20-12.5 Orally bid 2 tablet 12h 30 days Active Ventolin HFA 108 (90 Base) MCG/ACT Inhalation every 4 hrs 2 puffs as needed 4h Active Metoprolol Tartrate 50 TAKE ONE TABLET BY MOUTH TWICE A DAY 30 Active RESULTS No Results PROCEDURES Procedure Date Ordered Result Body Site Depomedrol 80mg Jul 01, 2017 IMMUNIZATIONS Vaccine Route Administration Date Status depo medrol IM Intramuscular Jul 01, 2017 Administered MEDICAL (GENERAL) HISTORY Type Description [...]
--- OUTSIDE RECORDS SUMMARY | 2018-02-04 20:22 | XMS REPORT ---
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 Role Phone [place], Rogelio Unavailable PROBLEMS Type Condition ICD9-CM Code [id number] Code Onset Dates Condition Status SNOMED Code Problem Constipation K59.00 Active 04422390 Problem Closed fracture of one rib of right side with routine healing, subsequent encounter S22.31XD Active 88939760 Problem COPD (chronic obstructive pulmonary disease) with acute bronchitis J44.0 Active 133016522175140 Problem BMI 35.0-35.9,adult Z68.35 Active 326926934 Problem Obstructive sleep apnea syndrome G47.33 Active 12408348 Problem Chronic sinusitis, unspecified J32.9 Active 532871800 Problem Nocturnal hypoxia G47.34 Active 447997964 Problem Gastritis without bleeding, unspecified chronicity, unspecified gastritis type K29.70 Active 3479443 Problem Acute sinusitis, unspecified J01.90 Active 81608625 Problem Episode of recurrent major depressive disorder, unspecified depression episode severity F33.9 Active 693936826 Problem Hyperlipidemia E78.5 Active 88549931 Problem Postmenopausal Z78.0 Active 64714598 Problem Intellectual disability F79 Active 45630782 Problem COPD (chronic obstructive pulmonary disease) J44.9 Active 51405933 Problem COPD exacerbation J44.1 Active 480099973 Problem Hypertension I10 Active 31222521 Problem Angina pectoris I20.9 Active 146838229 ALLERGIES No Information ENCOUNTERS Encounter Location Date Diagnosis [facility] [address], [address] [place], [place] [id number] Aug, [facility] [address], [address] [place] [id number] Jan, [facility] [address], [address] [place], [place] [id number] Dec, [facility] [address], [address] [place] [id number] Nov, COPD (chronic obstructive pulmonary disease) J44.9 ; Hypertension I10 and Vaginal discharge N89.8 [facility] [address] [place] [id number] Nov, [facility] [address], [address] [place] [id number] Nov, COPD (chronic obstructive pulmonary disease) J44.9 ; Angina pectoris I20.9 ; Nocturnal hypoxia G47.34 and Hypertension I10 [facility] [address], [address] [place] [id number] Nov, [facility] [address] [place] [id number] October, [facility] [address] [place] [id number] October, [facility] [address] [place] [id number] October, [facility] [address] [place] [id number] October, Hypertension I10 ; COPD (chronic obstructive pulmonary disease) J44.9 ; Hyperlipidemia E78.5 ; COPD exacerbation J44.1 ; Episode of recurrent major depressive disorder, unspecified depression episode severity F33.9 and BMI 35.0- 35.9,adult Z68.35 [facility] [address] [place] [id number] October, [facility] [address] [place] [id number] Sep, [facility] [address] [place] [id number] Sep, [facility] [address] [place] [id number] Sep, Hypertension I10 ; COPD (chronic obstructive pulmonary disease) J44.9 ; Nocturnal hypoxia G47.34 and Obstructive sleep apnea syndrome G47.33 [facility] [address] [place] [address] Sep, [facility] [address] [place] [id number] Sep, [facility] [address] [place] [id number] Aug, [facility] [address] [place] [id number] Aug, [facility] [address] [place] [id number] Aug, Encounter for screening mammogram for malignant neoplasm of breast Z12.31 ; Tinnitus of right ear H93.11 and Obstructive sleep apnea G47.33 [facility] [address] [place] [id number] Aug, [facility] [address] [place], [place] [id number] Aug, Encounter for Medicare annual wellness exam Z00.00 and Advanced directives , counseling/discussion Z71.89 [facility] [address] [place], [place] [address] Jul, [facility] [address] [place] [id number] Jul, [facility] [address] [place] [id number] Jul, [facility] [address] [place], [place] [id number] Jul, Right sided abdominal pain R10.9 ; Hypertension I10 ; COPD (chronic obstructive pulmonary disease) J44.9 and Hyperlipidemia E78.5 [facility] [address] [place], [place] [id number] Jul, [facility] [address] [place] [address] Jul, [facility] [address] [place] [id number] Jul, Acute gastritis without hemorrhage, unspecified gastritis type K29.00 ; Diarrhea, unspecified type R19.7 ; Hypertension I10 ; COPD (chronic obstructive pulmonary disease) J44.9 and Hyperlipidemia E78.5 [facility] [address] [place] [id number] Jul, [facility] [address] [place], [place] [id number] Jun, Acute lower respiratory infection J22 ; Other fatigue R53.83 and History of influenza Z87.09 [facility] [address] [place] [address] Jun, [facility] [address] [place] [id number] Jun, [facility] [address] [place], [place] [id number] Jun, Acute lower respiratory infection J22 ; Other fatigue R53.83 and History of influenza Z87.09 [facility] [address] [place] [id number] Jun, [facility] [address] [place] [address] Jun, [facility] [address] [place] [address] Jun, [facility] [address] [place] [address] Jun, [facility] [address] [place] [id number] Jun, [facility] [address] [place] [address] Jun, Acute pain of left shoulder M25.512 [facility] [address] [place] [id number] Jun, Acute pain of left shoulder M25.512 ; Gastritis without bleeding, unspecified chronicity, unspecified gastritis type K29.70 ; Hypertension I10 ; COPD (chronic obstructive pulmonary disease) J44.9 and Hyperlipidemia E78.5 [facility] [address] [place] [id number] Jun, [facility] [address] [place] [id number] Jun, [facility] [address] [place] [id number] May, [facility] [address] [place] [address] May, Acute pain of left shoulder M25.512 ; Intellectual disability F79 and Closed fracture of one rib of right side with routine healing, subsequent encounter S22.31XD [facility] [address] [place], [place] [id number] May, [facility] [address] [place] [id number] May, [facility] [address] [place] [id number] May, [facility] [address] [place] [address] May, Acute bronchitis, unspecified organism J20.9 ; Hypertension I10 ; COPD ( chronic obstructive pulmonary disease) J44.9 ; Hyperlipidemia E78.5 ; Nocturnal hypoxia G47.34 and Obstructive sleep apnea syndrome G47.33 [facility] [address] [place], [place] [id number] Apr, Pain with urination R30.9 ; Hypertension I10 ; COPD (chronic obstructive pulmonary disease) J44.9 ; Hyperlipidemia E78.5 and Acute bronchitis, unspecified organism J20.9 [facility] [address] [place], [place] [id number] Apr, Hypertension I10 [facility] [address] [place] [id number] Apr, Acute sinusitis, unspecified J01.90 [facility] [address] [place], [place] [id number] Apr, [facility] [address] [place] [id number] Mar, [facility] [address] [place] [address] Mar, Other specified bacterial agents as the cause of diseases classified elsewhere B96.89 and Acute sinusitis, unspecified J01.90 [facility] [address] [place], [place] [address] Mar, Closed fracture of one rib of right side with routine healing, subsequent encounter S22.31XD [facility] [address] [place], [place] [address] Mar, [facility] [address] [place] [id number] Mar, COPD (chronic obstructive pulmonary disease) J44.9 ; Closed fracture of one rib of right side with routine healing, subsequent encounter S22.31XD ; Hypertension I10 ; Constipation K59.00 ; Angina pectoris I20.9 ; Depression, unspecified depression type F32.9 and Left ear pain H92.02 [facility] [address] [place] [address] Mar, Elevated glucose R73.09 [facility] [address] [place], [place] [address] Mar, [facility] [address] [place] [address] Mar, Left-sided chest wall pain R07.89 and Hypertension I10 [facility] [address] [place] [address] Feb, [facility] [address] [place] [address] Feb, Hypertension I10 [facility] [address] [place], [place] [id number] Feb, Closed fracture of one rib of right side, initial encounter S22.31XA ; Intellectual disability F79 ; COPD (chronic obstructive pulmonary disease) J44.9 ; Hyperlipidemia E78.5 and Hypertension I10 [facility] [address] [place], [place] [id number] Feb, [facility] [address] [place] [address] Feb, Dysuria R30.0 [facility] [address] [place] [address] Jan, Closed fracture of one rib of right side, initial encounter S22.31XA [facility] [address] [place] [address] Jan, [facility] [address] [place] [address] Jan, [facility] [address] [place] [address] Jan, Contusion of left side of back, initial encounter S20.222A [facility] [address] [place], [place] [address] Jan, [facility] [address] [place] [address] Dec, [facility] [address] [place] [address] Dec, [facility] [address] [place] [address] Dec, COPD (chronic obstructive pulmonary disease) J44.9 and Hypertension I10 [facility] [address] [place], [place] [address] Dec, [facility] [address] [place] [address] Dec, [facility] [address] [place], [place] [address] Dec, Skin irritation R23.8 [facility] [address] [place] [address] Dec, [facility] [address] [place] [address] Dec, [facility] [address] [place] [address] Dec, [facility] [address] [place], [place] [address] Dec, [facility] [address] [place] [id number] October, Dysuria R30.0 and Pain of left calf M79.662 [facility] [address] [place] [address] October, Pain of right great toe M79.674 and Overgrown toenails L60.2 [facility] [address] [place] [address] Sep, [facility] [address] [place] [address] Sep, [facility] [address] [place] [address] Sep, Pain with urination R30.9 ; Abdominal pain, unspecified location R10.9 and Loose stools R19.5 [facility] [address] [place] [address] Sep, Hypertension I10 [facility] [address] [place] [address] Sep, [facility] [address] [place] [address] Sep, Acute cystitis with hematuria N30.01 [facility] [address] [place] [address] Sep, [facility] [address] [place] [address] Sep, Urinary frequency R35.0 [facility] [address] [place] [address] Aug, [facility] [address] [place] [address] Aug, Screening for breast cancer Z12.39 [facility] [address] [place] [address] Aug, [facility] [address] [place] [address] Aug, [facility] [address] [place] [address] Aug, [facility] [address] [place] [id number] Aug, [facility] [address] [place] [address] Aug, [facility] [address] [place] [address] Aug, [facility] [address] [place], [place] [address] Aug, [facility] [address] [place] [address] Aug, [facility] [address] [place] [address] Jul, Dysuria R30.0 [facility] [address] [place] [address] Jul, Chest wall pain R07.89 and Myofascial pain M79.1 [facility] [address] [place] [address] Jul, [facility] [address] [place] [address] Jul, Depression, unspecified depression type F32.9 ; Chronic obstructive pulmonary disease, unspecified COPD type J44.9 ; Hypertension I10 ; Angina pectoris I20.9 and Costochondritis M94.0 [facility] [address] [place], [place] [address] Jun, Acute non-recurrent maxillary sinusitis J01.00 [facility] [address] [place] [address] Jun, [facility] [address] [place] [address] Jun, [facility] [address] [place] [address] Jun, [facility] [address] [place] [id number] Jun, [facility] [address] [place] [address] Jun, [facility] [address] [place] [address] Jun, Left-sided chest wall pain R07.89 and Cough due to bronchospasm J98.01 [facility] [address] [place] [address] Jun, [facility] [address] [place] [address] May, [facility] [address] [place] [address] May, Left-sided chest wall pain R07.89 [facility] [address] [place] [address] May, Left-sided chest wall pain R07.89 and Cough due to bronchospasm J98.01 [facility] [address] [place] [id number] May, [facility] [address] [place], [place] [address] May, Encounter for Medicare annual wellness exam Z00.00 ; Advanced directives, counseling/discussion Z71.89 ; Screening for osteoporosis Z13.820 ; Bilateral hearing loss, unspecified hearing loss type H91.93 ; Intellectual disability F79 ; COPD (chronic obstructive pulmonary disease) J44.9 ; Postmenopausal Z78.0 ; Hypertension I10 ; Hyperlipidemia E78.5 ; Constipation K59.00 and Angina pectoris I20.9 [facility] [address] [place] [id number] May, [facility] [address] [place] [address] May, Left-sided chest wall pain R07.89 and Chest wall contusion, left, initial encounter S20.212A [facility] [address] [place], [place] [address] May, Dog bite, subsequent encounter W54.0XXD [facility] [address] [place] [address] May, Open bite of right hand, initial encounter S61.451A and Bitten by dog, initial encounter W54.0XXA [facility] [address] [place], [place] [address] May, [facility] [address] [place] [address] May, [facility] [address] [place] [address] Apr, Chest congestion R09.89 ; COPD exacerbation J44.1 and Dermatitis L30.9 [facility] [address] [place] [address] Apr, Secondary infection of skin L08.89 and Keratotic lesion L57.0 [facility] [address] [place] [address] Mar, Hypertension I10 ; Bronchitis J40 and Cough R05 [facility] [address] [place] [address] Feb, [facility] [address] [place] [address] Feb, Skin tag L91.[address] [place] [address] Dec, Dysuria R30.0 and Vaginitis N76.0 [facility] [address] [place] [address] Dec, Constipation K59.00 ; Hypertension I10 ; Bronchitis J40 ; Post-tussive emesis R11.10 and Cough R05 [facility] [address] [place] [address] Dec, [facility] [address] [place] [address] Nov, Constipation K59.00 and Bronchitis J40 [facility] [address], [address] [place] [address] Nov, [facility] [address] [place] [address] October, Dysuria R30.0 [facility] [address] [place] [address] October, Urinary frequency R35.0 and UTI (urinary tract infection) N39.0 [facility] [address] [place] [address] Sep, Intellectual disability F79 ; COPD (chronic obstructive pulmonary disease ) J44.9 ; Postmenopausal Z78.0 ; Hypertension I10 and Hyperlipidemia E78.5 [facility] [address] [place], [place] [address] Aug, Pain with urination R30.9 ; Wrist pain, left M25.532 and Pain in scapula M89.8X1 [facility] [address], [address] [place], [place] [address] Jul, Pain with urination R30.9 and Vaginitis N76.[address] [place], [place] [address] Jul, Screening for breast cancer Z12.[address], [address] [place], [place] [address] Jul, Acute upper respiratory infection, unspecified J06.9 and Other viral agents as the cause of diseases classified elsewhere B97.[address], [address] [place] [address] Jun, Cellulitis L03.[address] [place] [address] Jun, Gastritis 535.50 ; URI (upper respiratory infection) J06.9 and Ingrown toenail L60.0 [facility] [address] [place] [address] Apr, Gastritis 535.50 and Oral lesion K13.[address] [place] [address] Mar, Dysuria R30.0 and Pain of right scapula M89.8X1 [address], [address] [place] [address] Mar, [address], [address] [place] [address] Mar, [address], [address] [place] [address] Feb, Right knee pain 719.[address] [place] [address] Feb, [address] [place] [address] Feb, Right knee pain 719.46 [facility] [address] [place], [place] [address] Jan, Allergic rhinitis 477.9 and Cough 786.2 [facility] [address] [place] [address] Jan, [facility] [address] [place] [address] Jan, Insect bites 919.4 [facility] [address] [place], [place] [address] Jan, Fatigue 780.79 ; Gastritis 535.50 and Wound abscess 879.9 [facility] [address] [place] [address] Dec, [facility] [address] [place], [place] [address] Nov, Fatigue 780.79 ; Weakness generalized 780.79 and Gastritis 535.50 [facility] [address] [place], [place] [address] Nov, [facility] [address] [place] [address] October, [facility] [address] [place] [address] October, [facility] [address] [place] [address] October, [facility] [address] [place] [address] October, [facility] [address] [place] [address] Sep, [facility] [address] [place] [address] Sep, [facility] [address] [place] [address] Sep, [facility] [address] [place] [address] Aug, [facility] [address] [place] [address] Aug, [facility] [address] [place] [address] Jul, [facility] [address] [place] [id number] Jul, [facility] [address] [place], [place] [address] May, [facility] [address] [place] [address] May, [facility] [address] [place] [address] Apr, [facility] [address] [place] [address] Mar, [facility] [address] [place] [address] Mar, [facility] [address] [place], [place] [id number] Feb, [facility] [address] [place] [id number] Jan, [facility] [address] [place], [place] [id number] Jan, [facility] [address] [place] [address] Nov, [facility] [address] [place] [address] October, [facility] [address] [place], [place] [address] October, [facility] [address] [place] [id number] Sep, [facility] [address] [place], [place] [id number] Aug, [facility] [address] [place], [place] [address] Jul, [facility] [address] [place], [place] [address] Jun, [facility] [address] [place], [place] [address] May, [facility] [address] [place], [place] [address] Mar, [facility] [address] [place] [address] Mar, [facility] [address] [place] [address] Jan, [facility] [address] [place] [address] Dec, [facility] [address] [place] [address] Nov, [facility] [address] [place], [place] [id number] October, [facility] [address] [place] [address] Aug, [facility] [address] [place] [address] Jul, [facility] [address] [place], [place] [address] Jun, [facility] [address] [place] [address] Jun, [facility] [address] [place] [address] Jun, [facility] [address] [place] [address] May, [facility] [address] [place], [place] [address] Apr, [facility] [address] [place] [address] Mar, [facility] [address] [place], [place] [id number] Mar, [facility] [address] [place] [address] Mar, IMMUNIZATIONS No Known Immunizations SOCIAL HISTORY Never Assessed REASON FOR VISIT wants a call back PLAN OF CARE VITAL SIGNS MEDICATIONS Unknown [...] subsequent encounter Surgical History cholecystectomy Surgical History LIATH-BSO 1969 Surgical History bladder mesh Surgical History section Surgical History ankle surgery Hospitalization History pneumonia 12/2016
--- OUTSIDE RECORDS SUMMARY | 2018-02-04 20:23 | XMS REPORT ---
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
--- OUTSIDE RECORDS SUMMARY | 2018-02-04 20:23 | XMS REPORT ---
Author Author Rogelio Prado Organization [facility] Address [address], [address] [place], [place] [id number] Care Team Providers Care Gold Leaf Printer Name Role Phone [place], Rogelio Unavailable PROBLEMS Type Condition ICD9-CM Code LJR38-IP Code Onset Dates Condition Status SNOMED Code Problem Angina pectoris I20.9 Active 714177223 Problem COPD (chronic obstructive pulmonary disease) with acute bronchitis J44.0 Active 624094585131822 Problem Constipation K59.00 Active 04067368 Problem Gastritis without bleeding, unspecified chronicity, unspecified gastritis type K29.70 Active 4879946 Problem Chronic sinusitis, unspecified J32.9 Active 716293547 Problem Obstructive sleep apnea syndrome G47.33 Active 36140754 Problem Closed fracture of one rib of right side with routine healing, subsequent encounter S22.31XD Active 74830908 Problem Acute sinusitis, unspecified J01.90 Active 18030910 Problem Nocturnal hypoxia G47.34 Active 661897530 Problem Episode of recurrent major depressive disorder, unspecified depression episode severity F33.9 Active 580675903 Problem Postmenopausal Z78.0 Active 80960473 Problem COPD (chronic obstructive pulmonary disease) J44.9 Active 43671751 Problem Hyperlipidemia E78.5 Active 67771588 Problem Intellectual disability F79 Active 00853831 Problem Hypertension I10 Active 88330055 Problem COPD exacerbation J44.1 Active [id number] ALLERGIES No Information ENCOUNTERS Encounter Location Date Diagnosis [facility] [address] [place], [place] [id number] Aug, [facility] [address], [address] [place] [id number] Aug, [facility] [address], [address] [place] [id number] Aug, [facility] [address] [place] [id number] Jul, [facility] [address], [address] [place] [id number] Jul, [facility] [address], [address] [place] [id number] Jul, [facility] [address], [address] [place] [id number] Jul, Acute gastritis without hemorrhage, unspecified gastritis type K29.00 and Diarrhea, unspecified type R19.7 [facility] [address] [place], [place] [id number] Jul, [facility] [address], [address] [place] [id number] Jun, Acute lower respiratory infection J22 ; Other fatigue R53.83 and History of influenza Z87.09 [facility] [address] [place] [id number] Jun, [facility] [address], [address] [place] [id number] Jun, [facility] [address], [address] [place] [id number] Jun, Acute lower respiratory infection J22 ; Other fatigue R53.83 and History of influenza Z87.09 [facility] [address] [place] [id number] Jun, [facility] [address] [place] [id number] Jun, [facility] [address] [place] [id number] Jun, [facility] [address] [place] [id number] Jun, [facility] [address] [place] [id number] Jun, [facility] [address] [place], [place] [id number] Jun, Acute pain of left shoulder M25.512 [facility] [address] [place] [id number] Jun, Acute pain of left shoulder M25.512 ; Gastritis without bleeding, unspecified chronicity, unspecified gastritis type K29.70 ; Hypertension I10 ; COPD (chronic obstructive pulmonary disease) J44.9 and Hyperlipidemia E78.5 [facility] [address], [address] [place] [id number] Jun, [facility] [address] [place] [id number] Jun, [facility] [address], [address] [place] [id number] May, [facility] [address], [address] [employer] [place] [id number] May, Acute pain of left shoulder M25.512 ; Intellectual disability F79 and Closed fracture of one rib of right side with routine healing, subsequent encounter S22.31XD [address], [address] [place], [place] [id number] May, [facility] [address], [address] [place] [id number] May, [facility] [address], [address] [place] [id number] May, [facility] [address], [address] [place], [place] [id number] May, Acute bronchitis, unspecified organism J20.9 ; Hypertension I10 ; COPD ( chronic obstructive pulmonary disease) J44.9 ; Hyperlipidemia E78.5 ; Nocturnal hypoxia G47.34 and Obstructive sleep apnea syndrome G47.[address], [address] [place], [place] [id number] Apr, Pain with urination R30.9 ; Hypertension I10 ; COPD (chronic obstructive pulmonary disease) J44.9 ; Hyperlipidemia E78.5 and Acute bronchitis, unspecified organism J20.[address], [address] [place], [place] [id number] Apr, Hypertension I10 [facility] [address], [address] [place], [place] [id number] Apr, Acute sinusitis, unspecified J01.[address], [address] [place], [place] [id number] Apr, [address], [address] [place] [id number] Mar, [address], [address] [place] [id number] Mar, Other specified bacterial agents as the cause of diseases classified elsewhere B96.89 and Acute sinusitis, unspecified J01.[address], [address] [place], [place] [id number] Mar, Closed fracture of one rib of right side with routine healing, subsequent encounter S22.31XD [address], [address] [place] [id number] Mar, [address], [facility] [address] [place] [id number] Mar, COPD (chronic obstructive pulmonary disease) J44.9 ; Closed fracture of one rib of right side with routine healing, subsequent encounter S22.31XD ; Hypertension I10 ; Constipation K59.00 ; Angina pectoris I20.9 ; Depression, unspecified depression type F32.9 and Left ear pain H92.02 [facility] [address] [place] [id number] Mar, Elevated glucose R73.09 [facility] [address] [place] [id number] Mar, [facility] [address] [place] [id number] Mar, Left-sided chest wall pain R07.89 and Hypertension I10 [facility] [address] [place] [id number] Feb, [facility] [address] [place] [id number] Feb, Hypertension I10 [facility] [address] [place], [place] [id number] Feb, Closed fracture of one rib of right side, initial encounter S22.31XA ; Intellectual disability F79 ; COPD (chronic obstructive pulmonary disease) J44.9 ; Hyperlipidemia E78.5 and Hypertension I10 [facility] [address] [place] [id number] Feb, [facility] [address] [place] [id number] Feb, Dysuria R30.0 [facility] [address] [place] [id number] Jan, Closed fracture of one rib of right side, initial encounter S22.31XA [facility] [address] [place], [place] [id number] Jan, [facility] [address] [place], [place] [id number] Jan, [facility] [address] [place] [id number] Jan, Contusion of left side of back, initial encounter S20.222A [facility] [address] [place] [id number] Jan, [facility] [address] [place], [place] [id number] Dec, [facility] [address] [place] [id number] Dec, [facility] [address] [place] [id number] Dec, COPD (chronic obstructive pulmonary disease) J44.9 and Hypertension I10 [facility] [address] [place] [id number] Dec, [facility] [address] [place] [id number] Dec, [facility] [address] [place] [id number] Dec, Skin irritation R23.8 [facility] [address] [place], [place] [id number] Dec, [facility] [address] [place] [id number] Dec, [facility] [address] [place] [id number] Dec, [facility] [address] [place] [id number] Dec, [facility] [address] [place], [place] [id number] October, Dysuria R30.0 and Pain of left calf M79.662 [facility] [address] [place], [place] [id number] October, Pain of right great toe M79.674 and Overgrown toenails L60.2 [facility] [address] [place] [id number] Sep, [facility] [address] [place] [id number] Sep, [facility] [address] [place] [id number] Sep, Pain with urination R30.9 ; Abdominal pain, unspecified location R10.9 and Loose stools R19.5 [facility] [address] [place], [place] [id number] Sep, Hypertension I10 [facility] [address] [place], [place] [id number] Sep, [facility] [address] [place] [id number] Sep, Acute cystitis with hematuria N30.01 [facility] [address] [place], [place] [id number] Sep, [facility] [address] [place], [place] [id number] Sep, Urinary frequency R35.0 [facility] [address] [place], [place] [id number] Aug, [facility] [address] [place] [id number] Aug, Screening for breast cancer Z12.39 [facility] [address] [place], [place] [id number] Aug, [facility] [address] [place] [id number] Aug, [facility] [address] [place] [id number] Aug, [facility] [address] [place] [id number] Aug, [facility] [address] [place] [id number] Aug, [facility] [address] [place] [id number] Aug, [facility] [address] [place] [id number] Aug, [facility] [address] [place] [id number] Aug, [facility] [address] [place] [id number] Jul, Dysuria R30.0 [facility] [address] [place] [id number] Jul, Chest wall pain R07.89 and Myofascial pain M79.1 [facility] [address] [place] [id number] Jul, [facility] [address] [place] [id number] Jul, Depression, unspecified depression type F32.9 ; Chronic obstructive pulmonary disease, unspecified COPD type J44.9 ; Hypertension I10 ; Angina pectoris I20.9 and Costochondritis M94.0 [facility] [address] [place], [place] [id number] Jun, Acute non-recurrent maxillary sinusitis J01.00 [facility] [address] [place], [place] [id number] Jun, [facility] [address] [place] [id number] Jun, [facility] [address] [place] [id number] Jun, [facility] [address] [place] [id number] Jun, [facility] [address] [place] [id number] Jun, [facility] [address] [place], [place] [id number] Jun, Left-sided chest wall pain R07.89 and Cough due to bronchospasm J98.01 [facility] [address] [place], [place] [id number] Jun, [facility] [address] [place], [place] [id number] May, [facility] [address] [place], [place] [id number] May, Left-sided chest wall pain R07.89 [facility] [address], [facility] [address] [place] [id number] May, Left-sided chest wall pain R07.89 and Cough due to bronchospasm J98.01 [facility] [address], [facility] [address] [place] [id number] May, [facility] [address], [facility] [address] [place] [id number] May, Encounter for Medicare annual wellness exam Z00.00 ; Advanced directives, counseling/discussion Z71.89 ; Screening for osteoporosis Z13.820 ; Bilateral hearing loss, unspecified hearing loss type H91.93 ; Intellectual disability F79 ; COPD (chronic obstructive pulmonary disease) J44.9 ; Postmenopausal Z78.0 ; Hypertension I10 ; Hyperlipidemia E78.5 ; Constipation K59.00 and Angina pectoris I20.[address], [address] [place] [id number] May, [facility] [address], [facility] 200 [place] [id number] May, Left-sided chest wall pain R07.89 and Chest wall contusion, left, initial encounter S20.212A [address], [facility] [address] [place], [place] [id number] May, Dog bite, subsequent encounter W54.0XXD [address], [facility] [address] [place], [place] [id number] May, Open bite of right hand, initial encounter S61.451A and Bitten by dog, initial encounter W54.0XXA [facility] [address] [place], [place] [id number] May, [facility] [address], [address] [place], [place] [id number] May, [address], [address] [place], [place] [id number] Apr, Chest congestion R09.89 ; COPD exacerbation J44.1 and Dermatitis L30.[address], [facility] [address] [place], [place] [id number] Apr, Secondary infection of skin L08.89 and Keratotic lesion L57.[address], [facility] [address] [place], [place] [id number] Mar, Hypertension I10 ; Bronchitis J40 and Cough R05 [facility] [address] [place], [place] [id number] Feb, [facility] [address] [place] [id number] Feb, Skin tag L91.8 [facility] [address] [place], [place] [id number] Dec, Dysuria R30.0 and Vaginitis N76.0 [facility] [address] [place], [place] [id number] Dec, Constipation K59.00 ; Hypertension I10 ; Bronchitis J40 ; Post-tussive emesis R11.10 and Cough R05 [facility] [address], [address] [employer] [place] [id number] Dec, [facility] [address] [place], [place] [id number] Nov, Constipation K59.00 and Bronchitis J40 [facility] [address] [employer] [place] [id number] Nov, [facility] [address], [address] [employer] [place] [id number] October, Dysuria R30.0 [facility] [address] [employer] [place] [id number] October, Urinary frequency R35.0 and UTI (urinary tract infection) N39.0 [facility] [address] [employer] [place] [id number] Sep, Intellectual disability F79 ; COPD (chronic obstructive pulmonary disease ) J44.9 ; Postmenopausal Z78.0 ; Hypertension I10 and Hyperlipidemia E78.5 [facility] [address] [employer] [place] [id number] Aug, Pain with urination R30.9 ; Wrist pain, left M25.532 and Pain in scapula M89.8X1 [facility] [address] [employer] [place] [id number] Jul, Pain with urination R30.9 and Vaginitis N76.0 [facility] [address] [employer] [place] [id number] Jul, Screening for breast cancer Z12.39 [facility] [address], [address] [employer] [place] [id number] Jul, Acute upper respiratory infection, unspecified J06.9 and Other viral agents as the cause of diseases classified elsewhere B97.89 [facility] [address], [address] [place], [place] [id number] Jun, Cellulitis L03.90 [facility] [address], [address] [place] [id number] Jun, Gastritis 535.50 ; URI (upper respiratory infection) J06.9 and Ingrown toenail L60.0 [facility] [address] [place], [place] [id number] Apr, Gastritis 535.50 and Oral lesion K13.70 [facility] [address] [place], [place] [id number] Mar, Dysuria R30.0 and Pain of right scapula M89.8X1 [facility] [address] [place], [place] [id number] Mar, [facility] [address], [address] [place] [id number] Mar, [facility] [address], [address] [place], [place] [id number] Feb, Right knee pain 719.46 [facility] [address] [place] [id number] Feb, [facility] [address] [place] [id number] Feb, Right knee pain 719.46 [facility] [address] [place] [id number] Jan, Allergic rhinitis 477.9 and Cough 786.2 [facility] [address] [place], [place] [id number] Jan, [facility] [address] [place] [id number] Jan, Insect bites 919.4 [facility] [address] [place], [place] [id number] Jan, Fatigue 780.79 ; Gastritis 535.50 and Wound abscess 879.9 [facility] [address] [place], [place] [id number] Dec, [facility] [address], [address] [place], [place] [id number] Nov, Fatigue 780.79 ; Weakness generalized 780.79 and Gastritis 535.50 [facility] [address] [place] [id number] Nov, [facility] [address] [place] [id number] October, [facility] [address] [place] [id number] October, [facility] [address] [place] [id number] October, [facility] [address] [place] [id number] October, [facility] [address] [place] [id number] Sep, [facility] [address] [place] [id number] Sep, [facility] [address] [place] [id number] Sep, [facility] [address] [place] [id number] Aug, [facility] [address] [place] [id number] Aug, [facility] [address] [place] [id number] Jul, [facility] [address] [place] [id number] Jul, [facility] [address] [place] [id number] May, [facility] [address] [place] [id number] May, [facility] [address] [place] [id number] Apr, [facility] [address] [place] [id number] Mar, [facility] [address] [place] [id number] Mar, [facility] [address] [place] [id number] Feb, [facility] [address] [place] [id number] Jan, [facility] [address] [place] [id number] Jan, [facility] [address] [place] [id number] Nov, [facility] [address] [place] [id number] October, [facility] [address] [place] [id number] October, [facility] [address] [place] [id number] Sep, [facility] [address] [place] [id number] Aug, [facility] [address] [place] [id number] Jul, [facility] [address] [place] [id number] Jun, [facility] [address] [place], [place] [id number] May, [facility] [address] [place] [id number] Mar, [facility] [address] [place] [id number] Mar, [facility] [address] [place] [id number] Jan, [facility] [address] [place], [place] [id number] Dec, [facility] [address] [place] [id number] Nov, [facility] [address] [place] [id number] October, [facility] [address] [place], [place] [id number] Aug, [facility] [address] [place], [place] [id number] Jul, [facility] [address] [place] [id number] Jun, [facility] [address] [place] [id number] Jun, [facility] [address] [place], [place] [id number] Jun, [facility] [address] [place], [place] [id number] May, [facility] [address] [place] [id number] Apr, [facility] [address] [place] [id number] Mar, [facility] [address] [place], [place] [id number] Mar, [facility] [address], [address] [place], [place] [id number] Mar, IMMUNIZATIONS No Known Immunizations SOCIAL HISTORY Never Assessed REASON FOR VISIT CCM- stomach/ER followup PLAN OF CARE VITAL SIGNS MEDICATIONS Medication Instructions Dosage Frequency Start Date End Date Duration Status Zantac 150 MG Orally BID 1 tablet [...]
--- OUTSIDE RECORDS SUMMARY | 2018-02-04 20:23 | XMS REPORT ---
Author Author Sarina [facility] Address [address], [address] [place], [place] [address] Care Team Providers Care Doffer Name Role Phone OsminSarina garland Unavailable PROBLEMS Type Condition ICD9-CM Code [id number] Code Onset Dates Condition Status SNOMED Code Problem COPD exacerbation J44.1 Active 236066181 Problem Constipation K59.00 Active 06942427 Problem Angina pectoris I20.9 Active 397433493 Problem Chronic sinusitis, unspecified J32.9 Active 707133940 Problem Acute sinusitis, unspecified J01.90 Active 81169783 Problem COPD (chronic obstructive pulmonary disease) with acute bronchitis J44.0 Active 176950230366614 Problem Chronic obstructive pulmonary disease, unspecified COPD type J44.9 Active 94535284 Problem Closed fracture of one rib of right side with routine healing, subsequent encounter S22.31XD Active 74172382 Problem Depression, unspecified depression type F32.9 Active 79903100 Problem Hypertension I10 Active 16476659 Problem Postmenopausal Z78.0 Active 37382310 Problem COPD (chronic obstructive pulmonary disease) J44.9 Active 31564799 Problem Hyperlipidemia E78.5 Active 89318785 Problem Intellectual disability F79 Active 60265123 ALLERGIES No Information SOCIAL HISTORY Never Assessed PLAN OF CARE Activity Details Follow Up prn Reason: VITAL SIGNS MEDICATIONS Medication Instructions Dosage Frequency Start Date End Date Duration Status Flonase 50 USE ONE SPRAY IN EACH NOSTRIL TWO TIMES A DAY 30 Active Mucinex 600 MG Orally every 12 hrs 1 tablet as needed 12h Active Celexa 40 MG Orally Once a day 0.5 tablet 24h Active Claritin 10 TAKE ONE TABLET BY MOUTH DAILY 90 Active Nitrostat 0.4 MG Sublingual prn as directed Jan, Active Macrobid 100 MG Orally every 12 hrs 1 capsule with food 12h Jul, 7 day(s) Active Metoprolol Tartrate 50 TAKE ONE TABLET BY MOUTH TWICE A DAY 30 Active Multivitamin Adult - Active Lisinopril-Hydrochlorothiazide 20-12.5 Orally Once a day 1 tablet 24h Active Aspirin Adult Low Dose 81 MG Orally Once a day 1-2 tablet 24h Active Albuterol Sulfate (2.5 MG/3ML) 0.083% Inhalation every 4 hrs prn 3 ml 20 Jun, 2016 30 days Active Trazodone HCl 100 MG Orally Once a day 1.5 tablet at bedtime 24h Active Symbicort 160-4.5 INHALE TWO PUFFS BY MOUTH EVERY 12 HOURS 30 Active Ventolin HFA 108 (90 Base) MCG/ACT Inhalation every 4 hrs 2 puffs as needed 4h Active Nexium 40 TAKE ONE CAPSULE BY MOUTH DAILY 30 Active Naproxen 375 MG Orally Twice a day 1 tablet 12h 30 days Active RESULTS Name Result Date Reference Range UA (dip stick only) Specific [place] 1.010 pH 5 Leukocytes ++ Nitrates + Protein + Glucose - Ketones - Urobilinogen - Bilirubin - Blood 50 PROCEDURES Procedure Date Ordered Result Body Site URINE-NO MICRO Aug 20, 2016 IMMUNIZATIONS No Known Immunizations MEDICAL (GENERAL) HISTORY [...] subsequent encounter Surgical History cholecystectomy Surgical History [facility] 1969 Surgical History bladder mesh Surgical History section Surgical History ankle surgery Hospitalization History pneumonia 12/2016
--- OUTSIDE RECORDS SUMMARY | 2018-02-04 20:23 | XMS REPORT ---
Author Author Rogelio Prado Organization [facility] Address [address], [address] [place], [place] [id number] Care Team Providers Care Roof Technician Name Role Phone Rogelio Prado Unavailable PROBLEMS Type Condition ICD9-CM Code QDW02-RC Code Onset Dates Condition Status SNOMED Code Problem Angina pectoris I20.9 Active 366550775 Problem COPD (chronic obstructive pulmonary disease) with acute bronchitis J44.0 Active 287855895808321 Problem Constipation K59.00 Active 39113576 Problem Chronic sinusitis, unspecified J32.9 Active 069728534 Problem Acute sinusitis, unspecified J01.90 Active 37189223 Problem Closed fracture of one rib of right side with routine healing, subsequent encounter S22.31XD Active 07555473 Problem Depression, unspecified depression type F32.9 Active 93333892 Problem Nocturnal hypoxia G47.34 Active 013039034 Problem Obstructive sleep apnea syndrome G47.33 Active 27373279 Problem Postmenopausal Z78.0 Active 16254649 Problem COPD (chronic obstructive pulmonary disease) J44.9 Active 35940258 Problem Hyperlipidemia E78.5 Active 32652404 Problem Intellectual disability F79 Active 55129031 Problem Hypertension I10 Active 95116189 Problem COPD exacerbation J44.1 Active 130207293 ALLERGIES No Information SOCIAL HISTORY Never Assessed [...]
--- OUTSIDE RECORDS SUMMARY | 2018-02-04 20:23 | XMS REPORT ---
Author Author Zenia Padilla [facility] Address [address] [place] [address] Care Team Providers Care Kiln Stacker Name Role Phone Zenia Padilla Unavailable PROBLEMS Type Condition ICD9-CM Code AVN47-BI Code Onset Dates Condition Status SNOMED Code Problem COPD exacerbation J44.1 Active 009629082 Problem Constipation K59.00 Active 93878682 Problem Angina pectoris I20.9 Active 125868599 Problem Chronic sinusitis, unspecified J32.9 Active 306606071 Problem Acute sinusitis, unspecified J01.90 Active 20516611 Problem COPD (chronic obstructive pulmonary disease) with acute bronchitis J44.0 Active 036624852454547 Problem Chronic obstructive pulmonary disease, unspecified COPD type J44.9 Active 74442633 Problem Closed fracture of one rib of right side with routine healing, subsequent encounter S22.31XD Active 01549719 Problem Depression, unspecified depression type F32.9 Active 97679201 Problem Hypertension I10 Active 70670155 Problem Postmenopausal Z78.0 Active 05029526 Problem COPD (chronic obstructive pulmonary disease) J44.9 Active 01856492 Problem Hyperlipidemia E78.5 Active 11745306 Problem Intellectual disability F79 Active 06718922 ALLERGIES Substance Reaction Event Type Date Status PCN Unknown Drug Allergy May, Active Zithromax Unknown Drug Allergy May, Active SOCIAL HISTORY Never Assessed PLAN OF CARE Activity Details Follow Up 1 Year, prn Reason: VITAL SIGNS Weight 199.4 lbs 2016-06-11 Heart Rate 70 /min 2016-06-11 Height 64 in 2016-06-11 BMI 34.22 kg/m2 2016-06-11 Blood pressure systolic 134 mm Hg 2016-06-11 Blood pressure diastolic 66 mm Hg 2016-06-11 MEDICATIONS Medication Instructions Dosage Frequency Start Date End Date Duration Status Meloxicam 7.5 TAKE ONE TABLET BY MOUTH TWICE A DAY 30 Active Multivitamin Adult - Active Symbicort 160-4.5 INHALE TWO PUFFS BY MOUTH EVERY 12 HOURS Active Ventolin HFA 108 (90 Base) MCG/ACT Inhalation every 4 hrs 2 puffs as needed 4h Active Trazodone HCl 100 MG Orally Once a day 1.5 tablet at bedtime 24h Active Nitrostat 0.4 MG Sublingual prn as directed Jan, Active Stool Softener 100 MG Orally Once a day prn 1 capsule as needed Active Mucinex 600 MG Orally every 12 hrs 1 tablet as needed 12h Active Celexa 40 MG Orally Once a day 0.5 tablet 24h Active Doxycycline Hyclate 100 MG Orally every 12 hrs 1 capsule 12h May, 10 days Active Flonase 50 USE ONE SPRAY IN EACH NOSTRIL TWO TIMES A DAY 30 Active Metoprolol Tartrate 50 TAKE ONE TABLET BY MOUTH TWICE A DAY Active Naproxen 375 MG Orally Twice a day 1 tablet 12h Active Claritin 10 TAKE ONE TABLET BY MOUTH DAILY 90 Active Linzess 145 MCG PO QD 1 capsule 24h Active Aspirin Adult Low Dose 81 MG Orally Once a day 1-2 tablet 24h Active Lisinopril-Hydrochlorothiazide 20-12.5 Orally Once a day 1 tablet 24h Active MiraLax - Active RESULTS Name Result Date Reference Range DEXA PROCEDURES No Known procedures IMMUNIZATIONS Vaccine Route Administration Date Status * Prevnar-13, Medicare Only IM Intramuscular Jun 11, 2016 Administered MEDICAL (GENERAL) HISTORY Type Description Date [...]
--- OUTSIDE RECORDS SUMMARY | 2018-02-04 20:24 | XMS REPORT ---
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 Name Role Phone Adel, Rogeilo Unavailable PROBLEMS Type Condition ICD9-CM Code EEQ36-MC Code Onset Dates Condition Status SNOMED Code Problem Constipation K59.00 Active 14768069 Problem Closed fracture of one rib of right side with routine healing, subsequent encounter S22.31XD Active 14704909 Problem COPD (chronic obstructive pulmonary disease) with acute bronchitis J44.0 Active 509318785450867 Problem BMI 35.0-35.9,adult Z68.35 Active 429774352 Problem Obstructive sleep apnea syndrome G47.33 Active 63930462 Problem Chronic sinusitis, unspecified J32.9 Active 223982671 Problem Nocturnal hypoxia G47.34 Active 198746341 Problem Gastritis without bleeding, unspecified chronicity, unspecified gastritis type K29.70 Active 0508866 Problem Acute sinusitis, unspecified J01.90 Active 82263412 Problem Episode of recurrent major depressive disorder, unspecified depression episode severity F33.9 Active 404030598 Problem Hyperlipidemia E78.5 Active 77729325 Problem Postmenopausal Z78.0 Active 49878268 Problem Intellectual disability F79 Active 73290020 Problem COPD (chronic obstructive pulmonary disease) J44.9 Active 40787869 Problem COPD exacerbation J44.1 Active 287584017 Problem Hypertension I10 Active 87846401 Problem Angina pectoris I20.9 Active 311408110 ALLERGIES Substance Reaction Event Type Date Status Zithromax Unknown Drug Allergy Nov, Active ENCOUNTERS Encounter Location Date Diagnosis [facility] [address], [address] [place], [place] [id number] Aug, [facility] [address], [address] [place], [place] [id number] Jan, [facility] [address], [address] [place], [place] [id number] Nov, COPD (chronic obstructive pulmonary disease) J44.9 ; Hypertension I10 and Vaginal discharge N89.8 [facility] [address] [place], [place] [id number] Nov, [facility] [address] [place], [place] [id number] Nov, COPD (chronic obstructive pulmonary disease) J44.9 ; Angina pectoris I20.9 ; Nocturnal hypoxia G47.34 and Hypertension I10 [facility] [address] [place], [place] [id number] Nov, [facility] [address] [place] [id number] October, [facility] [address] [place] [id number] October, [facility] [address] [place] [id number] October, [facility] [address] [place] [id number] October, Hypertension I10 ; COPD (chronic obstructive pulmonary disease) J44.9 ; Hyperlipidemia E78.5 ; COPD exacerbation J44.1 ; Episode of recurrent major depressive disorder, unspecified depression episode severity F33.9 and BMI 35.0- 35.9,adult Z68.35 [facility] [address] [place], [place] [id number] October, [facility] [address] [place], [place] [id number] Sep, [facility] [address] [place] [id number] Sep, [facility] [address] [place] [id number] Sep, Hypertension I10 ; COPD (chronic obstructive pulmonary disease) J44.9 ; Nocturnal hypoxia G47.34 and Obstructive sleep apnea syndrome G47.33 [facility] [address] [place] [id number] Sep, [facility] [address] [place] [id number] Sep, [facility] [address] [place] [id number] Aug, [facility] [address] [place] [id number] Aug, [facility] [address] [place] [id number] Aug, Encounter for screening mammogram for malignant neoplasm of breast Z12.31 ; Tinnitus of right ear H93.11 and Obstructive sleep apnea G47.33 [facility] [address] [place] [id number] Aug, [facility] [address] [place], [place] [id number] Aug, Encounter for Medicare annual wellness exam Z00.00 and Advanced directives , counseling/discussion Z71.89 [facility] [address] [place], [place] [id number] Jul, [facility] [address] [place] [id number] Jul, [facility] [address] [place] [id number] Jul, [facility] [address] [place] [id number] Jul, Right sided abdominal pain R10.9 ; Hypertension I10 ; COPD (chronic obstructive pulmonary disease) J44.9 and Hyperlipidemia E78.5 [facility] [address] [place], [place] [id number] Jul, [facility] [address] [place] [id number] Jul, [facility] [address] [place] [id number] Jul, Acute gastritis without hemorrhage, unspecified gastritis type K29.00 ; Diarrhea, unspecified type R19.7 ; Hypertension I10 ; COPD (chronic obstructive pulmonary disease) J44.9 and Hyperlipidemia E78.5 [facility] [address] [place], [place] [id number] Jul, [facility] [address] [place] [id number] Jun, Acute lower respiratory infection J22 ; Other fatigue R53.83 and History of influenza Z87.09 [facility] [address] [place], [place] [id number] Jun, [facility] [address] [place] [id number] Jun, [facility] [address] [place] [id number] Jun, Acute lower respiratory infection J22 ; Other fatigue R53.83 and History of influenza Z87.09 [facility] [address] [place] [id number] Jun, [facility] [address] [place] [id number] Jun, [facility] [address] [place] [id number] Jun, [facility] [address] [place] [id number] Jun, [facility] [address] [place] [id number] Jun, [facility] [address] [place], [place] [id number] Jun, Acute pain of left shoulder M25.512 [facility] [address] [place], [place] [id number] Jun, Acute pain of left shoulder M25.512 ; Gastritis without bleeding, unspecified chronicity, unspecified gastritis type K29.70 ; Hypertension I10 ; COPD (chronic obstructive pulmonary disease) J44.9 and Hyperlipidemia E78.5 [facility] [address] [place], [place] [id number] Jun, [facility] [address] [place] [id number] Jun, [facility] [address] [place] [id number] May, [facility] [address] [place] [id number] May, Acute pain of left shoulder M25.512 ; Intellectual disability F79 and Closed fracture of one rib of right side with routine healing, subsequent encounter S22.31XD [facility] [address] [place], [place] [id number] May, [facility] [address] [place] [id number] May, [facility] [address] [place] [id number] May, [facility] [address] [place] [id number] May, Acute bronchitis, unspecified organism J20.9 ; Hypertension I10 ; COPD ( chronic obstructive pulmonary disease) J44.9 ; Hyperlipidemia E78.5 ; Nocturnal hypoxia G47.34 and Obstructive sleep apnea syndrome G47.33 [facility] [address] [place], [place] [id number] Apr, Pain with urination R30.9 ; Hypertension I10 ; COPD (chronic obstructive pulmonary disease) J44.9 ; Hyperlipidemia E78.5 and Acute bronchitis, unspecified organism J20.9 [facility] [address] [place], [place] [id number] Apr, Hypertension I10 [facility] [address] [place] [id number] Apr, Acute sinusitis, unspecified J01.90 [facility] [address] [place], [place] [id number] Apr, [facility] [address] [place] [id number] Mar, [facility] [address] [place], [place] [id number] Mar, Other specified bacterial agents as the cause of diseases classified elsewhere B96.89 and Acute sinusitis, unspecified J01.90 [facility] [address] [place], [place] [id number] Mar, Closed fracture of one rib of right side with routine healing, subsequent encounter S22.31XD [facility] [address] [place], [place] [id number] Mar, [facility] [address] [place] [id number] Mar, COPD (chronic obstructive pulmonary disease) J44.9 ; Closed fracture of one rib of right side with routine healing, subsequent encounter S22.31XD ; Hypertension I10 ; Constipation K59.00 ; Angina pectoris I20.9 ; Depression, unspecified depression type F32.9 and Left ear pain H92.02 [facility] [address] [place], [place] [id number] Mar, Elevated glucose R73.[address] [place], [place] [id number] Mar, [facility] [address] [place] [id number] Mar, Left-sided chest wall pain R07.89 and Hypertension I10 [facility] [address] [place], [place] [id number] Feb, [facility] [address] [place] [id number] Feb, Hypertension I10 [facility] [address] [place] [id number] Feb, Closed fracture of one rib of right side, initial encounter S22.31XA ; Intellectual disability F79 ; COPD (chronic obstructive pulmonary disease) J44.9 ; Hyperlipidemia E78.5 and Hypertension I10 [facility] [address] [place], [place] [id number] Feb, [facility] [address] [place] [id number] Feb, Dysuria R30.0 [facility] [address] [place], [place] [id number] Jan, Closed fracture of one rib of right side, initial encounter S22.31XA [facility] [address] [place] [id number] Jan, [facility] [address] [place] [id number] Jan, [facility] [address] [place] [id number] Jan, Contusion of left side of back, initial encounter S20.222A [facility] [address] [place], [place] [id number] Jan, [facility] [address] [place], [place] [id number] Dec, [facility] [address] [place] [id number] Dec, [facility] [address] [place] [id number] Dec, COPD (chronic obstructive pulmonary disease) J44.9 and Hypertension I10 [facility] [address] [place] [id number] Dec, [facility] [address] [place] [id number] Dec, [facility] [address] [place] [id number] Dec, Skin irritation R23.8 [facility] [address] [place] [id number] Dec, [facility] [address] [place] [id number] Dec, [facility] [address] [place] [id number] Dec, [facility] [address] [place] [id number] Dec, [facility] [address] [place] [id number] October, Dysuria R30.0 and Pain of left calf M79.662 [facility] [address] [place] [id number] October, Pain of right great toe M79.674 and Overgrown toenails L60.2 [facility] [address] [place] [id number] Sep, [facility] [address] [place], [place] [id number] Sep, [facility] [address] [place] [id number] Sep, Pain with urination R30.9 ; Abdominal pain, unspecified location R10.9 and Loose stools R19.5 [facility] [address] [place] [id number] Sep, Hypertension I10 [facility] [address] [place] [id number] Sep, [facility] [address] [place] [id number] Sep, Acute cystitis with hematuria N30.01 [facility] [address] [place] [id number] Sep, [facility] [address] [place] [id number] Sep, Urinary frequency R35.0 [facility] [address] [place] [id number] Aug, [facility] [address] [place] [id number] Aug, Screening for breast cancer Z12.39 [facility] [address] [place], [place] [id number] Aug, [facility] [address] [place] [id number] Aug, [facility] [address] [place] [id number] Aug, [facility] [address] [place] [id number] Aug, [facility] [address] [place] [id number] Aug, [facility] [address] [place] [id number] Aug, [facility] [address] [place] [id number] Aug, [facility] [address] [place] [id number] Aug, [facility] [address] [place] [id number] Jul, Dysuria R30.0 [facility] [address] [place] [id number] Jul, Chest wall pain R07.89 and Myofascial pain M79.1 [facility] [address] [place] [id number] Jul, [facility] [address] [place], [place] [id number] Jul, Depression, unspecified depression type F32.9 ; Chronic obstructive pulmonary disease, unspecified COPD type J44.9 ; Hypertension I10 ; Angina pectoris I20.9 and Costochondritis M94.0 [facility] [address] [place] [id number] Jun, Acute non-recurrent maxillary sinusitis J01.00 [facility] [address] [place] [id number] Jun, [facility] [address] [place] [id number] Jun, [facility] [address] [place] [id number] Jun, [facility] [address] [place] [id number] Jun, [facility] [address] [place] [id number] Jun, [facility] [address] [place] [id number] Jun, Left-sided chest wall pain R07.89 and Cough due to bronchospasm J98.01 [facility] [address] [place] [id number] Jun, [facility] [address] [place] [id number] May, [facility] [address] [place], [place] [id number] May, Left-sided chest wall pain R07.89 [facility] [address] [place] [id number] May, Left-sided chest wall pain R07.89 and Cough due to bronchospasm J98.01 [facility] [address] [place], [place] [id number] May, [facility] [address] [place], [place] [id number] May, Encounter for Medicare annual wellness exam Z00.00 ; Advanced directives, counseling/discussion Z71.89 ; Screening for osteoporosis Z13.820 ; Bilateral hearing loss, unspecified hearing loss type H91.93 ; Intellectual disability F79 ; COPD (chronic obstructive pulmonary disease) J44.9 ; Postmenopausal Z78.0 ; Hypertension I10 ; Hyperlipidemia E78.5 ; Constipation K59.00 and Angina pectoris I20.9 [facility] [address] [place] [id number] May, [facility] [address] [place] [id number] May, Left-sided chest wall pain R07.89 and Chest wall contusion, left, initial encounter S20.212A [facility] [address] [place] [id number] May, Dog bite, subsequent encounter W54.0XXD [facility] [address] [place] [id number] May, Open bite of right hand, initial encounter S61.451A and Bitten by dog, initial encounter W54.0XXA [facility] [address] [place], [place] [id number] May, [facility] [address] [place] [id number] May, [facility] [address] [place] [id number] Apr, Chest congestion R09.89 ; COPD exacerbation J44.1 and Dermatitis L30.9 [facility] [address] [place] [id number] Apr, Secondary infection of skin L08.89 and Keratotic lesion L57.0 [facility] [address] [place], [place] [id number] Mar, Hypertension I10 ; Bronchitis J40 and Cough R05 [facility] [address] [place], [place] [id number] Feb, [facility] [address] [place] [id number] Feb, Skin tag L91.8 [facility] [address] [place], [place] [id number] Dec, Dysuria R30.0 and Vaginitis N76.0 [facility] [address] [place], [place] [id number] Dec, Constipation K59.00 ; Hypertension I10 ; Bronchitis J40 ; Post-tussive emesis R11.10 and Cough R05 [facility] [address] [place], [place] [id number] Dec, [facility] [address] [place] [id number] Nov, Constipation K59.00 and Bronchitis J40 [facility] [address] [place] [id number] Nov, [facility] [address] [place] [id number] October, Dysuria R30.0 [facility] [address] [place], [place] [id number] October, Urinary frequency R35.0 and UTI (urinary tract infection) N39.0 [facility] [address] [place], [place] [id number] Sep, Intellectual disability F79 ; COPD (chronic obstructive pulmonary disease ) J44.9 ; Postmenopausal Z78.0 ; Hypertension I10 and Hyperlipidemia E78.5 [facility] [address] [place] [id number] Aug, Pain with urination R30.9 ; Wrist pain, left M25.532 and Pain in scapula M89.8X1 [facility] [address] [place] [id number] Jul, Pain with urination R30.9 and Vaginitis N76.[address] [place], [place] [id number] Jul, Screening for breast cancer Z12.[address] [place], [place] [id number] Jul, Acute upper respiratory infection, unspecified J06.9 and Other viral agents as the cause of diseases classified elsewhere B97.[address] [place] [id number] Jun, Cellulitis L03.[address] [place], [place] [id number] Jun, Gastritis 535.50 ; URI (upper respiratory infection) J06.9 and Ingrown toenail L60.0 [facility] [address] [place], [place] [id number] Apr, Gastritis 535.50 and Oral lesion K13.[address] [place] [id number] Mar, Dysuria R30.0 and Pain of right scapula M89.8X1 [facility] [address] [place], [place] [id number] Mar, [address], [address] [place] [id number] Mar, [address] [place] [id number] Feb, Right knee pain 719.[address] [place] [id number] Feb, [address] [place] [id number] Feb, Right knee pain 719.[address] [place] [id number] Jan, Allergic rhinitis 477.9 and Cough 786.2 [facility] [address] [place], [place] [id number] Jan, [facility] [address] [place], [place] [id number] Jan, Insect bites 919.4 [facility] [address] [place] [id number] Jan, Fatigue 780.79 ; Gastritis 535.50 and Wound abscess 879.9 [facility] [address] [place] [id number] Dec, [facility] [address] [place] [id number] Nov, Fatigue 780.79 ; Weakness generalized 780.79 and Gastritis 535.50 [facility] [address] [place] [id number] Nov, [facility] [address] [place], [place] [id number] October, [facility] [address] [place] [id number] October, [facility] [address] [place] [id number] October, [facility] [address] [place] [id number] October, [facility] [address] [place] [id number] Sep, [facility] [address] [place] [id number] Sep, [facility] [address] [place] [id number] Sep, [facility] [address] [place], [place] [id number] Aug, [facility] [address] [place] [id number] Aug, [facility] [address] [place] [id number] Jul, [facility] [address] [place] [id number] Jul, [facility] [address] [place] [id number] May, [facility] [address] [place] [id number] May, [facility] [address] [place] [id number] Apr, [facility] [address] [place] [id number] Mar, [facility] [address] [place] [id number] Mar, [facility] [address] [place] [id number] Feb, [facility] [address] [place] [id number] Jan, [facility] [address] [place] [id number] Jan, [facility] [address] [place] [id number] Nov, [facility] [address] [place] [id number] October, [facility] [address] [place] [id number] October, [facility] [address] [place] [id number] Sep, [facility] [address] [place] [id number] Aug, [facility] [address] [place] [id number] Jul, [facility] [address] [place] [id number] Jun, [facility] [address] [place] [id number] May, [facility] [address] [place] [id number] Mar, [facility] [address] [place] [id number] Mar, [facility] [address] [place] [id number] Jan, [facility] [address] [place] [id number] Dec, [facility] [address] [place] [id number] Nov, [facility] [address] [place] [id number] October, [facility] [address] [place] [id number] Aug, [facility] [address] [place] [id number] Jul, [facility] [address] [place] [id number] Jun, [facility] [address] [place] [id number] Jun, [facility] [address] [place] [id number] Jun, [facility] [address] [place] [id number] May, [facility] [address] [place] [id number] Apr, [facility] [address] [place] [id number] Mar, [facility] [address] [place] [id number] Mar, [facility] [address] [place] [id number] Mar, IMMUNIZATIONS No Known Immunizations SOCIAL HISTORY Never Assessed REASON FOR VISIT oxygen, anal bleeding PLAN OF CARE Activity Details Follow Up 2 Months Reason: VITAL SIGNS Weight 208 lbs 2017-12-19 Heart Rate 68 /min 2017-12-19 Height 64 in 2017-12-19 Oximetry 96 % 2017-12-19 BMI 35.70 kg/m2 2017-12-19 Blood pressure systolic 118 mm Hg 2017-12-19 Blood pressure diastolic 72 mm Hg 2017-12-19 MEDICATIONS Medication Instructions Dosage Frequency Start Date End Date Duration Status Multivitamin Adult - Active Meloxicam 15 MG Orally Once a day 1 tablet 24h 30 days Active Levaquin 750 MG Orally Once a day, every other day 1 tablet Jun, 14 days Not-Taking Celexa 40 MG Orally Once a day 0.5 tablet 24h Active Flonase 50 USE ONE SPRAY IN EACH NOSTRIL TWO TIMES A DAY Not- Taking Triamcinolone Acetonide 0.1 APPLY TO AFFECTED AREA(S) TWO TIMES A DAY 30 Active Nitrostat 0.4 MG Sublingual prn as directed Jan, Active Guaifenesin-Codeine 100-10 MG/5ML Orally every 4 hrs prn 5 ml Jan, 15 days Not-Taking Linzess 145 MCG PO QD 1 capsule 24h Active Albuterol Sulfate (2.5 MG/3ML) 0.083% Inhalation every 4 hrs prn 3 ml Jun, Active Alendronate Sodium 5 MG Orally Once a day 1 tablet 24h May, 30 day(s) Active Fluconazole 150 MG Orally every 72h x 3 doses 1 tablet Nov, 10 day(s) Active Nitrostat 0.4 DISSOLVE 1 TAB UNDER TONGUE FOR CHEST PAIN - IF PAIN REMAINS AFTER 5 MIN, CALL 911 AND REPEAT DOSE. MAX 3 TABS IN 15 MINUTES 8 Active Metoprolol Tartrate 50 TAKE ONE TABLET BY MOUTH TWICE A DAY 30 Active Aspirin Adult Low Dose 81 MG Orally Once a day 1-2 tablet 24h Active Ventolin HFA 108 (90 Base) MCG/ACT Inhalation every 4 hrs 2 puffs as needed 4h Active Symbicort 160-4.5 INHALE TWO PUFFS BY MOUTH EVERY 12 HOURS Active Zantac 150 MG Orally BID 1 tablet 12h 16 Jul, 2017 15 days Active Nexium 40 TAKE ONE CAPSULE BY MOUTH DAILY 30 Active Claritin 10 TAKE ONE TABLET BY MOUTH DAILY 90 Active PredniSONE 20 MG Orally Once a day 1 tablet 24h Jun, 05 days Not-Taking Ventolin HFA 90 INHALE ONE TO TWO PUFFS BY MOUTH EVERY 4 HOURS NEEDED FOR SHORTNESS OF BREATH FOR COUGH Active Levofloxacin 500 MG Orally Once a day 1 tablet 24h Dec, 07 days Not-Taking Denison 5-325 MG Orally every 6 hrs 1 tablet as needed 6h Jun, 10 days Active Lidocaine 5 % Externally on around vagina Three times a day 1 application to affected area as needed 8h Nov, 5 days Active PredniSONE 20 MG Orally Once a day 1 tablet 24h 24 Sep, 2017 5 days Active Trazodone HCl 100 MG Orally Once a day 1.5 tablet at bedtime 24h Active Lisinopril-Hydrochlorothiazide 20-12.5 TAKE TWO TABLETS BY MOUTH TWICE A DAY Active RESULTS Name Result Date Reference Range WET PREP 2017-12-19 PROCEDURES No Known procedures INSTRUCTIONS MEDICATIONS ADMINISTERED [...]
--- OUTSIDE RECORDS SUMMARY | 2018-02-04 20:24 | XMS REPORT ---
Author Author Rogelio Prado Organization [facility] Address [address], [facility] [address] [place], [place] [id number] Care Team Providers Care Blocker Polishing Name Role Phone [place], Rogelio Unavailable PROBLEMS Type Condition ICD9-CM Code VEY06-WC Code Onset Dates Condition Status SNOMED Code Problem Constipation K59.00 Active 53507788 Problem Depression, unspecified depression type F32.9 Active 19063518 Problem COPD (chronic obstructive pulmonary disease) with acute bronchitis J44.0 Active 557958857421103 Problem Gastritis without bleeding, unspecified chronicity, unspecified gastritis type K29.70 Active 6425869 Problem Chronic sinusitis, unspecified J32.9 Active 490861069 Problem Obstructive sleep apnea syndrome G47.33 Active 14703664 Problem Closed fracture of one rib of right side with routine healing, subsequent encounter S22.31XD Active 56658269 Problem Acute sinusitis, unspecified J01.90 Active 02239810 Problem Nocturnal hypoxia G47.34 Active 386948369 Problem Hyperlipidemia E78.5 Active 91122400 Problem COPD (chronic obstructive pulmonary disease) J44.9 Active 51572539 Problem Intellectual disability F79 Active 76007030 Problem Hypertension I10 Active 14500881 Problem COPD exacerbation J44.1 Active 730273752 Problem Postmenopausal Z78.0 Active 65305089 Problem Angina pectoris I20.9 Active 197519048 ALLERGIES No Information ENCOUNTERS Encounter Location Date Diagnosis [facility] [address] [place], [place] [id number] Aug, [facility] [address], [address] [place] [id number] Aug, [facility] [address], [address] [place] [id number] Aug, [facility] [address] [place] [id number] Jun, [facility] [address], [address] [place] [id number] Jun, [facility] [address], [address] [place] [id number] Jun, [facility] [address] [place] [id number] Jun, [facility] [address] [place] [id number] Jun, Acute pain of left shoulder M25.512 [facility] [address] [place] [id number] Jun, Acute pain of left shoulder M25.512 ; Gastritis without bleeding, unspecified chronicity, unspecified gastritis type K29.70 ; Hypertension I10 ; COPD (chronic obstructive pulmonary disease) J44.9 and Hyperlipidemia E78.5 [facility] [address] [place] [id number] Jun, [facility] [address] [place] [id number] Jun, [facility] [address] [place] [id number] May, [facility] [address] [place], [place] [id number] May, Acute pain of left shoulder M25.512 ; Intellectual disability F79 and Closed fracture of one rib of right side with routine healing, subsequent encounter S22.31XD [facility] [address] [place] [id number] May, [facility] [address] [place] [id number] May, [facility] [address], [address] [place] [id number] May, [facility] [address] [place] [id number] May, Acute bronchitis, unspecified organism J20.9 ; Hypertension I10 ; COPD ( chronic obstructive pulmonary disease) J44.9 ; Hyperlipidemia E78.5 ; Nocturnal hypoxia G47.34 and Obstructive sleep apnea syndrome G47.33 [facility] [address] [place] [id number] Apr, Pain with urination R30.9 ; Hypertension I10 ; COPD (chronic obstructive pulmonary disease) J44.9 ; Hyperlipidemia E78.5 and Acute bronchitis, unspecified organism J20.9 [facility] [address], [address] [place] [id number] Apr, Hypertension I10 [facility] [address], [address] [place] [id number] Apr, Acute sinusitis, unspecified J01.90 [facility] [address], [address] [place] [id number] Apr, [facility] [address], [address] [place] [id number] Mar, [facility] [address], [address] [place] [id number] Mar, Other specified bacterial agents as the cause of diseases classified elsewhere B96.89 and Acute sinusitis, unspecified J01.90 [facility] [address], [address] [place] [id number] Mar, Closed fracture of one rib of right side with routine healing, subsequent encounter S22.31XD [facility] [address], [address] [place] [id number] Mar, [facility] [address], [address] [place] [id number] Mar, COPD (chronic obstructive pulmonary disease) J44.9 ; Closed fracture of one rib of right side with routine healing, subsequent encounter S22.31XD ; Hypertension I10 ; Constipation K59.00 ; Angina pectoris I20.9 ; Depression, unspecified depression type F32.9 and Left ear pain H92.02 [facility] [address], [address] [place] [id number] Mar, Elevated glucose R73.09 [facility] [address], [address] [place] [id number] Mar, [facility] [address], [address] [place] [id number] Mar, Left-sided chest wall pain R07.89 and Hypertension I10 [facility] [address], [address] [place] [id number] Feb, [facility] [address], [address] [place] [id number] Feb, Hypertension I10 [facility] [address], [address] [place] [id number] Feb, Closed fracture of one rib of right side, initial encounter S22.31XA ; Intellectual disability F79 ; COPD (chronic obstructive pulmonary disease) J44.9 ; Hyperlipidemia E78.5 and Hypertension I10 [facility] [address] [place] [id number] Feb, [facility] [address] [place] [id number] Feb, Dysuria R30.0 [facility] [address], [address] [place] [id number] Jan, Closed fracture of one rib of right side, initial encounter S22.31XA [facility] [address] [place] [id number] Jan, [facility] [address] [place] [id number] Jan, [facility] [address] [place] [id number] Jan, Contusion of left side of back, initial encounter S20.222A [facility] [address] [place] [id number] Jan, [facility] [address] [place] [id number] Dec, [facility] [address] [place] [id number] Dec, [facility] [address] [place] [id number] Dec, COPD (chronic obstructive pulmonary disease) J44.9 and Hypertension I10 [facility] [address] [place] [id number] Dec, [facility] [address] [place] [id number] Dec, [facility] [address] [place] [id number] Dec, Skin irritation R23.8 [facility] [address] [place] [id number] Dec, [facility] [address] [place] [id number] Dec, [facility] [address] [place] [id number] Dec, [facility] [address] [place] [id number] Dec, [facility] [address] [place] [id number] October, Dysuria R30.0 and Pain of left calf M79.662 [facility] [address] [place] [id number] October, Pain of right great toe M79.674 and Overgrown toenails L60.2 [facility] [address] [place] [address] Sep, [facility] [address] [place] [id number] Sep, [facility] [address] [place] [id number] Sep, Pain with urination R30.9 ; Abdominal pain, unspecified location R10.9 and Loose stools R19.5 [facility] [address] [place] [id number] Sep, Hypertension I10 [facility] [address] [place] [id number] Sep, [facility] [address] [place] [address] Sep, Acute cystitis with hematuria N30.01 [facility] [address] [place] [id number] Sep, [facility] [address] [place] [id number] Sep, Urinary frequency R35.0 [facility] [address] [place] [id number] Aug, [facility] [address] [place] [id number] Aug, Screening for breast cancer Z12.39 [facility] [address] [place] [id number] Aug, [facility] [address] [place] [id number] Aug, [facility] [address] [place] [id number] Aug, [facility] [address] [place] [id number] Aug, [facility] [address] [place] [id number] Aug, [facility] [address] [place] [id number] Aug, [facility] [address] [place] [id number] Aug, [facility] [address] [place] [id number] Aug, [facility] [address] [place] [id number] Jul, Dysuria R30.0 [facility] [address] [place] [id number] Jul, Chest wall pain R07.89 and Myofascial pain M79.1 [facility] [address] [place] [id number] Jul, [facility] [address] [place] [id number] Jul, Depression, unspecified depression type F32.9 ; Chronic obstructive pulmonary disease, unspecified COPD type J44.9 ; Hypertension I10 ; Angina pectoris I20.9 and Costochondritis M94.0 [facility] [address] [place] [id number] Jun, Acute non-recurrent maxillary sinusitis J01.00 [facility] [address] [place] [id number] Jun, [facility] [address] [place] [id number] Jun, [facility] [address] [place] [id number] Jun, [facility] [address] [place] [id number] Jun, [facility] [address] [place] [id number] Jun, [facility] [address] [place] [id number] Jun, Left-sided chest wall pain R07.89 and Cough due to bronchospasm J98.01 [facility] [address] [place] [id number] Jun, [facility] [address] [place] [id number] May, [facility] [address] [place] [id number] May, Left-sided chest wall pain R07.89 [facility] [address] [place] [id number] May, Left-sided chest wall pain R07.89 and Cough due to bronchospasm J98.01 [facility] [address] [place] [id number] May, [facility] [address] [place] [id number] May, Encounter for Medicare annual wellness exam Z00.00 ; Advanced directives, counseling/discussion Z71.89 ; Screening for osteoporosis Z13.820 ; Bilateral hearing loss, unspecified hearing loss type H91.93 ; Intellectual disability F79 ; COPD (chronic obstructive pulmonary disease) J44.9 ; Postmenopausal Z78.0 ; Hypertension I10 ; Hyperlipidemia E78.5 ; Constipation K59.00 and Angina pectoris I20.9 [facility] [address] [place] [id number] May, [facility] [address] [place] [id number] May, Left-sided chest wall pain R07.89 and Chest wall contusion, left, initial encounter S20.212A [facility] [address] [place] [id number] May, Dog bite, subsequent encounter W54.0XXD [facility] [address], [address] [place] [id number] May, Open bite of right hand, initial encounter S61.451A and Bitten by dog, initial encounter W54.0XXA [facility] [address], [address] [place] [id number] May, [facility] [address], [address] [place] [id number] May, [facility] [address], [address] [place] [id number] Apr, Chest congestion R09.89 ; COPD exacerbation J44.1 and Dermatitis L30.9 [facility] [address], [address] [place] [id number] Apr, Secondary infection of skin L08.89 and Keratotic lesion L57.0 [facility] [address] [place], [place] [id number] Mar, Hypertension I10 ; Bronchitis J40 and Cough R05 [facility] [address], [address] [place] [id number] Feb, [facility] [address], [address] [place] [id number] Feb, Skin tag L91.[address] [place] [id number] Dec, Dysuria R30.0 and Vaginitis N76.0 [facility] [address], [address] [place] [id number] Dec, Constipation K59.00 ; Hypertension I10 ; Bronchitis J40 ; Post-tussive emesis R11.10 and Cough R05 [facility] [address], [address] [place], [place] [id number] Dec, [facility] [address], [address] [place] [id number] Nov, Constipation K59.00 and Bronchitis J40 [facility] [address], [address] [place] [id number] Nov, [facility] [address], [address] [place] [id number] October, Dysuria R30.0 [facility] [address], [address] [place] [id number] October, Urinary frequency R35.0 and UTI (urinary tract infection) N39.[address] [place] [id number] Sep, Intellectual disability F79 ; COPD (chronic obstructive pulmonary disease ) J44.9 ; Postmenopausal Z78.0 ; Hypertension I10 and Hyperlipidemia E78.[address], [facility] [address] [place], [place] [id number] Aug, Pain with urination R30.9 ; Wrist pain, left M25.532 and Pain in scapula M89.8X1 [address] [place] [id number] Jul, Pain with urination R30.9 and Vaginitis N76.[address] [place] [id number] Jul, Screening for breast cancer Z12.[address] [id number] Jul, Acute upper respiratory infection, unspecified J06.9 and Other viral agents as the cause of diseases classified elsewhere B97.[address] [id number] Jun, Cellulitis L03.[address] [place], [place] [id number] Jun, Gastritis 535.50 ; URI (upper respiratory infection) J06.9 and Ingrown toenail L60.[address], [facility] [address] [place] [id number] Apr, Gastritis 535.50 and Oral lesion K13.[address] [place] [id number] Mar, Dysuria R30.0 and Pain of right scapula M89.8X1 [address] [place], [place] [id number] Mar, [address] [place] [id number] Mar, [address] [place] [id number] Feb, Right knee pain 719.[address] [place] [id number] Feb, [address], [facility] [address] [place] [id number] Feb, Right knee pain 719.[address], [facility] [address] [place], [place] [id number] Jan, Allergic rhinitis 477.9 and Cough 786.2 [facility] [address] [place], [place] [id number] Jan, [facility] [address] [place] [id number] Jan, Insect bites 919.4 [facility] [address] [place] [id number] Jan, Fatigue 780.79 ; Gastritis 535.50 and Wound abscess 879.9 [facility] [address] [place] [id number] Dec, [facility] [address] [place] [address] Nov, Fatigue 780.79 ; Weakness generalized 780.79 and Gastritis 535.50 [facility] [address] [place] [id number] Nov, [facility] [address] [place] [id number] October, [facility] [address] [place] [id number] October, [facility] [address] [place] [id number] October, [facility] [address] [place] [id number] October, [facility] [address], [address] [place] [id number] Sep, [facility] [address] [place] [id number] Sep, [facility] [address] [place] [id number] Sep, [facility] [address] [place] [id number] Aug, [facility] [address] [place] [id number] Aug, [facility] [address] [place] [address] Jul, [facility] [address] [place] [id number] Jul, [facility] [address] [place] [id number] May, [facility] [address] [place] [id number] May, [facility] [address] [place] [id number] Apr, [facility] [address] [place] [id number] Mar, [facility] [address] [place] [id number] Mar, [facility] [address] [place] [id number] Feb, [facility] [address] [place] [id number] Jan, [facility] [address] [place] [id number] Jan, [facility] [address] [place] [id number] Nov, [facility] [address] [place] [id number] October, [facility] [address] [place] [id number] October, [facility] [address] [place] [id number] Sep, [facility] [address] [place] [address] Aug, [facility] [address] [place] [id number] Jul, [facility] [address] [place] [id number] Jun, [facility] [address] [place] [id number] May, [facility] [address] [place] [id number] Mar, [facility] [address] [place] [id number] Mar, [facility] [address] [place] [id number] Jan, [facility] [address] [place] [id number] Dec, [facility] [address] [place] [id number] Nov, [facility] [address] [place] [id number] October, [facility] [address] [place] [id number] Aug, [facility] [address] [place] [id number] Jul, [facility] [address] [place] [address] Jun, [facility] [address] [place] [id number] Jun, [facility] [address] [place] [id number] Jun, [facility] [address] [place] [id number] May, [facility] [address] [place] [id number] Apr, [facility] [address] [place] [id number] Mar, [facility] [address] [place] [id number] Mar, [facility] [address] [place] [address] Mar, IMMUNIZATIONS No Known Immunizations SOCIAL HISTORY [...]
--- OUTSIDE RECORDS SUMMARY | 2018-02-04 20:25 | XMS REPORT ---
Author Author NURY STOVALL [facility] Address Unknown Phone Unavailable Care Team Providers Care Elevator Operator Freight Name Role Phone Dr. GISELLA MASSEY PCP Unavailable Allergies Allergy Description Allergy Type No Known Drug Allergies Propensity to adverse reactions Procedures Procedure Type Procedure Description Date Physicians No codified procedures found for this patient. Results No Procedures Performed Observation Test Name Observation Test Result Observation Test Units Observation Test Date Observation Test Time No result observations. History of Immunizations Immunization Date no immunization entries Plan of Care Item Text No plan of care items. Procedure Date/Time/Initials Critical? Status No plan of care procedures. Medication List Medication Dose Units Frequency Start Date/Time Status none Problem List Problem Entered Date Resolved Date No known problems
--- OUTSIDE RECORDS SUMMARY | 2018-02-04 20:25 | XMS REPORT ---
Author Author Rogelio Prado Organization [facility] Address [address], [address] [place], [place] [id number] Care Team Providers Care Dental Scheduling Coordinator Name Role Phone Adel, Rogelio Unavailable PROBLEMS Type Condition ICD9-CM Code [id number] Code Onset Dates Condition Status SNOMED Code Problem Angina pectoris I20.9 Active 096658922 Problem COPD (chronic obstructive pulmonary disease) with acute bronchitis J44.0 Active [id number] Problem Constipation K59.00 Active 46847203 Problem Gastritis without bleeding, unspecified chronicity, unspecified gastritis type K29.70 Active 2670037 Problem Chronic sinusitis, unspecified J32.9 Active 504212195 Problem Obstructive sleep apnea syndrome G47.33 Active 98125073 Problem Closed fracture of one rib of right side with routine healing, subsequent encounter S22.31XD Active 62725135 Problem Acute sinusitis, unspecified J01.90 Active 65960492 Problem Nocturnal hypoxia G47.34 Active 554072407 Problem Episode of recurrent major depressive disorder, unspecified depression episode severity F33.9 Active 569766027 Problem Postmenopausal Z78.0 Active 70928836 Problem COPD (chronic obstructive pulmonary disease) J44.9 Active 91961106 Problem Hyperlipidemia E78.5 Active 73768584 Problem Intellectual disability F79 Active 50950068 Problem Hypertension I10 Active 69968127 Problem COPD exacerbation J44.1 Active 599483303 ALLERGIES No Information ENCOUNTERS Encounter Location Date Diagnosis [facility] [address] [place], [place] [id number] Aug, [facility] [address], [address] [place] [id number] Aug, [facility] [address], [address] [place] [address] Aug, [facility] [address], [address] [place], [place] [address] Aug, Encounter for Medicare annual wellness exam Z00.00 and Advanced directives , counseling/discussion Z71.89 [facility] [address] [place], [place] [address] Jul, [facility] [address] [place] [id number] Jul, [facility] [address] [place] [address] Jul, [facility] [address] [place] [address] Jul, Right sided abdominal pain R10.9 ; Hypertension I10 ; COPD (chronic obstructive pulmonary disease) J44.9 and Hyperlipidemia E78.5 [facility] [address] [place], [place] [id number] Jul, [facility] [address] [place] [address] Jul, [facility] [address] [place], [place] [id number] Jul, Acute gastritis without hemorrhage, unspecified gastritis type K29.00 ; Diarrhea, unspecified type R19.7 ; Hypertension I10 ; COPD (chronic obstructive pulmonary disease) J44.9 and Hyperlipidemia E78.5 [facility] [address] [place], [place] [id number] Jul, [facility] [address] [place] [address] Jun, Acute lower respiratory infection J22 ; Other fatigue R53.83 and History of influenza Z87.09 [facility] [address] [place] [address] Jun, [facility] [address] [place] [address] Jun, [facility] [address] [place] [address] Jun, Acute lower respiratory infection J22 ; Other fatigue R53.83 and History of influenza Z87.09 [facility] [address] [place] [address] Jun, [facility] [address] [place] [id number] Jun, [facility] [address] [place] [address] Jun, [facility] [address] [place] [address] Jun, [facility] [address] [place] [address] Jun, [facility] [address] [place] [address] Jun, Acute pain of left shoulder M25.512 [facility] [address] [place], [place] [address] Jun, Acute pain of left shoulder M25.512 ; Gastritis without bleeding, unspecified chronicity, unspecified gastritis type K29.70 ; Hypertension I10 ; COPD (chronic obstructive pulmonary disease) J44.9 and Hyperlipidemia E78.5 [facility] [address] [place], [place] [address] Jun, [facility] [address] [place] [address] Jun, [facility] [address] [place] [id number] May, [facility] [address] [place] [address] May, Acute pain of left shoulder M25.512 ; Intellectual disability F79 and Closed fracture of one rib of right side with routine healing, subsequent encounter S22.31XD [facility] [address] [place] [address] May, [facility] [address] [place] [address] May, [facility] [address] [place] [id number] May, [facility] [address] [place] [address] May, Acute bronchitis, unspecified organism J20.9 ; Hypertension I10 ; COPD ( chronic obstructive pulmonary disease) J44.9 ; Hyperlipidemia E78.5 ; Nocturnal hypoxia G47.34 and Obstructive sleep apnea syndrome G47.33 [facility] [address] [place], [place] [id number] Apr, Pain with urination R30.9 ; Hypertension I10 ; COPD (chronic obstructive pulmonary disease) J44.9 ; Hyperlipidemia E78.5 and Acute bronchitis, unspecified organism J20.9 [facility] [address] [place] [address] Apr, Hypertension I10 [facility] [address] [place] [id number] Apr, Acute sinusitis, unspecified J01.90 [facility] [address] [place] [address] Apr, [facility] [address] [place] [id number] Mar, [facility] [address] [place] [id number] Mar, Other specified bacterial agents as the cause of diseases classified elsewhere B96.89 and Acute sinusitis, unspecified J01.90 [facility] [address] [place], [place] [address] Mar, Closed fracture of one rib of right side with routine healing, subsequent encounter S22.31XD [facility] [address] [place] [address] Mar, [facility] [address] [place] [address] Mar, COPD (chronic obstructive pulmonary disease) J44.9 ; Closed fracture of one rib of right side with routine healing, subsequent encounter S22.31XD ; Hypertension I10 ; Constipation K59.00 ; Angina pectoris I20.9 ; Depression, unspecified depression type F32.9 and Left ear pain H92.02 [facility] [address] [place] [id number] Mar, Elevated glucose R73.09 [facility] [address] [place] [address] Mar, [facility] [address] [place] [address] Mar, Left-sided chest wall pain R07.89 and Hypertension I10 [facility] [address] [place], [place] [address] Feb, [facility] [address] [place] [address] Feb, Hypertension I10 [facility] [address] [place] [address] Feb, Closed fracture of one rib of right side, initial encounter S22.31XA ; Intellectual disability F79 ; COPD (chronic obstructive pulmonary disease) J44.9 ; Hyperlipidemia E78.5 and Hypertension I10 [facility] [address] [place], [place] [address] Feb, [facility] [address] [place] [address] Feb, Dysuria R30.0 [facility] [address] [place], [place] [address] Jan, Closed fracture of one rib of right side, initial encounter S22.31XA [facility] [address] [place], [place] [address] Jan, [facility] [address] [place], [place] [address] Jan, [facility] [address] [place] [address] Jan, Contusion of left side of back, initial encounter S20.222A [facility] [address] [place] [address] Jan, [facility] [address] [place] [address] Dec, [facility] [address] [place] [address] Dec, [facility] [address] [place] [address] Dec, COPD (chronic obstructive pulmonary disease) J44.9 and Hypertension I10 [facility] [address] [place], [place] [address] Dec, [facility] [address] [place] [address] Dec, [facility] [address] [place] [address] Dec, Skin irritation R23.8 [facility] [address] [place] [address] Dec, [facility] [address] [place] [address] Dec, [facility] [address] [place] [address] Dec, [facility] [address] [place] [address] Dec, [facility] [address] [place] [address] October, Dysuria R30.0 and Pain of left calf M79.662 [facility] [address] [place], [place] [address] October, Pain of right great toe M79.674 and Overgrown toenails L60.2 [facility] [address] [place] [address] Sep, [facility] [address] [place] [address] Sep, [facility] [address] [place] [address] Sep, Pain with urination R30.9 ; Abdominal pain, unspecified location R10.9 and Loose stools R19.5 [facility] [address] [place] [address] Sep, Hypertension I10 [facility] [address] [place] [address] Sep, [facility] [address] [place] [address] Sep, Acute cystitis with hematuria N30.01 [facility] [address] [place] [address] Sep, [facility] [address] [place] [address] Sep, Urinary frequency R35.0 [facility] [address] [place] [address] Aug, [facility] [address] [place] [address] Aug, Screening for breast cancer Z12.39 [facility] [address] [place], [place] [address] Aug, [facility] [address] [place] [address] Aug, [facility] [address] [place], [place] [address] Aug, [facility] [address] [place] [address] Aug, [facility] [address] [place] [address] Aug, [facility] [address] [place] [address] Aug, [facility] [address] [place] [address] Aug, [facility] [address] [place] [address] Aug, [facility] [address] [place] [address] Jul, Dysuria R30.0 [facility] [address] [place] [address] Jul, Chest wall pain R07.89 and Myofascial pain M79.1 [facility] [address] [place], [place] [address] Jul, [facility] [address] [place] [address] Jul, Depression, unspecified depression type F32.9 ; Chronic obstructive pulmonary disease, unspecified COPD type J44.9 ; Hypertension I10 ; Angina pectoris I20.9 and Costochondritis M94.0 [facility] [address] [place], [place] [address] Jun, Acute non-recurrent maxillary sinusitis J01.00 [facility] [address] [place], [place] [address] Jun, [facility] [address] [place] [address] Jun, [facility] [address] [place] [address] Jun, [facility] [address] [place] [address] Jun, [facility] [address] [place] [address] Jun, [facility] [address] [place] [address] Jun, Left-sided chest wall pain R07.89 and Cough due to bronchospasm J98.01 [facility] [address] [place] [address] Jun, [facility] [address] [place], [place] [address] May, [facility] [address] [place] [address] May, Left-sided chest wall pain R07.89 [facility] [address] [place], [place] [address] May, Left-sided chest wall pain R07.89 and Cough due to bronchospasm J98.01 [facility] [address] [place], [place] [address] May, [facility] [address] [place] [address] May, Encounter for Medicare annual wellness exam Z00.00 ; Advanced directives, counseling/discussion Z71.89 ; Screening for osteoporosis Z13.820 ; Bilateral hearing loss, unspecified hearing loss type H91.93 ; Intellectual disability F79 ; COPD (chronic obstructive pulmonary disease) J44.9 ; Postmenopausal Z78.0 ; Hypertension I10 ; Hyperlipidemia E78.5 ; Constipation K59.00 and Angina pectoris I20.9 [facility] [address] [place] [address] May, [facility] [address] [place] [address] May, Left-sided chest wall pain R07.89 and Chest wall contusion, left, initial encounter S20.212A [facility] [address] [place], [place] [address] 13 May, 2016 Dog bite, subsequent encounter W54.0XXD [facility] [address] [place], [place] [address] May, Open bite of right hand, initial encounter S61.451A and Bitten by dog, initial encounter W54.0XXA [facility] [address] [place], [place] [address] May, [facility] [address] [place] [address] May, [facility] [address] [place], [place] [address] Apr, Chest congestion R09.89 ; COPD exacerbation J44.1 and Dermatitis L30.9 [facility] [address] [place], [place] [address] Apr, Secondary infection of skin L08.89 and Keratotic lesion L57.0 [facility] [address] [place], [place] [address] Mar, Hypertension I10 ; Bronchitis J40 and Cough R05 [facility] [address] [place], [place] [address] Feb, [facility] [address] [place], [place] [address] Feb, Skin tag L91.[address] [place], [place] [address] Dec, Dysuria R30.0 and Vaginitis N76.0 [facility] [address] [place], [place] [address] Dec, Constipation K59.00 ; Hypertension I10 ; Bronchitis J40 ; Post-tussive emesis R11.10 and Cough R05 [facility] [address] [place], [place] [address] Dec, [facility] [address] [place] [address] Nov, Constipation K59.00 and Bronchitis J40 [facility] [address] [place], [place] [address] Nov, [facility] [address] [place] [address] October, Dysuria R30.0 [facility] [address] [place], [place] [address] October, Urinary frequency R35.0 and UTI (urinary tract infection) N39.0 [facility] [address] [place], [place] [address] Sep, Intellectual disability F79 ; COPD (chronic obstructive pulmonary disease ) J44.9 ; Postmenopausal Z78.0 ; Hypertension I10 and Hyperlipidemia E78.5 [facility] [address] [place], [place] [address] Aug, Pain with urination R30.9 ; Wrist pain, left M25.532 and Pain in scapula M89.8X1 [address], [facility] [address] [place], [place] [address] Jul, Pain with urination R30.9 and Vaginitis N76.[address], [facility] [address] [place], [place] [address] Jul, Screening for breast cancer Z12.[address], [facility] [address] [place], [place] [address] Jul, Acute upper respiratory infection, unspecified J06.9 and Other viral agents as the cause of diseases classified elsewhere B97.[address] [place], [place] [address] Jun, Cellulitis L03.[address], [facility] [address] [place], [place] [address] Jun, Gastritis 535.50 ; URI (upper respiratory infection) J06.9 and Ingrown toenail L60.[address], [facility] [address] [place], [place] [address] Apr, Gastritis 535.50 and Oral lesion K13.[address], [facility] [address] [place], [place] [address] Mar, Dysuria R30.0 and Pain of right scapula M89.8X1 [address], [address] [place], [place] [address] Mar, [address], [facility] [address] [place] [address] Mar, [address], [facility] [address] [place] [address] Feb, Right knee pain 719.[address] [place], [place] [address] Feb, [address] [place], [place] [address] Feb, Right knee pain 719.[address], [facility] [address] [place], [place] [address] Jan, Allergic rhinitis 477.9 and Cough 786.[address] [place], [place] [address] Jan, [address], [facility] [address] [place] [address] Jan, Insect bites 919.4 [facility] [address] [place] [address] Jan, Fatigue 780.79 ; Gastritis 535.50 and Wound abscess 879.9 [facility] [address] [place] [address] Dec, [facility] [address] [place] [address] Nov, Fatigue 780.79 ; Weakness generalized 780.79 and Gastritis 535.50 [facility] [address] [place], [place] [address] Nov, [facility] [address] [place] [address] October, [facility] [address] [place] [address] October, [facility] [address] [place] [address] October, [facility] [address] [place] [address] October, [facility] [address] [place] [address] Sep, [facility] [address] [place], [place] [address] Sep, [facility] [address] [place] [address] Sep, [facility] [address] [place] [address] Aug, [facility] [address] [place] [address] Aug, [facility] [address] [place], [place] [address] Jul, [facility] [address] [place] [address] Jul, [facility] [address] [place] [address] May, [facility] [address] [place] [address] May, [facility] [address] [place], [place] [address] Apr, [facility] [address] [place] [address] Mar, [facility] [address] [place], [place] [address] Mar, [facility] [address] [place], [place] [address] Feb, [facility] [address] [place], [place] [address] Jan, [facility] [address] [place] [address] Jan, [facility] [address] [place] [address] Nov, [facility] [address] [place] [address] October, [facility] [address] [place] [address] October, [facility] [address] [place] [address] Sep, [facility] [address] [place] [address] Aug, [facility] [address] [place] [address] Jul, [facility] [address] [place] [address] Jun, [facility] [address] [place] [address] May, [facility] [address] [place] [address] Mar, [facility] [address] [place] [address] Mar, [facility] [address] [place] [address] Jan, [facility] [address] [place] [address] Dec, [facility] [address] [place] [address] Nov, [facility] [address] [place] [address] October, [facility] [address] [place] [address] Aug, [facility] [address] [place] [address] Jul, [facility] [address] [place] [address] Jun, [facility] [address] [place] [address] Jun, [facility] [address] [place] [address] Jun, [facility] [address] [place] [address] May, [facility] [address] [place] [address] Apr, [facility] [address] [place] [address] Mar, [facility] [address] [place] [address] Mar, [facility] [address] [place], [place] [address] Mar, IMMUNIZATIONS No Known Immunizations SOCIAL HISTORY [...]
--- OUTSIDE RECORDS SUMMARY | 2018-02-04 20:25 | XMS REPORT ---
Author Author Adolph Villanueva Organization [facility] Address [address], [address] [place], [place] [address] Care Team Providers Care Hazardous Materials Driver Name Role Phone Adolph Villanueva Unavailable PROBLEMS Type Condition ICD9-CM Code [id number] Code Onset Dates Condition Status SNOMED Code Problem COPD exacerbation J44.1 Active 757947619 Problem Constipation K59.00 Active 90689717 Problem Angina pectoris I20.9 Active 632975388 Problem Chronic sinusitis, unspecified J32.9 Active 427829368 Problem Acute sinusitis, unspecified J01.90 Active 44337169 Problem COPD (chronic obstructive pulmonary disease) with acute bronchitis J44.0 Active 074986245662160 Problem Chronic obstructive pulmonary disease, unspecified COPD type J44.9 Active 00701043 Problem Closed fracture of one rib of right side with routine healing, subsequent encounter S22.31XD Active 39685541 Problem Depression, unspecified depression type F32.9 Active 40267557 Problem Hypertension I10 Active 68784572 Problem Postmenopausal Z78.0 Active 63262294 Problem COPD (chronic obstructive pulmonary disease) J44.9 Active 37514054 Problem Hyperlipidemia E78.5 Active 10100205 Problem Intellectual disability F79 Active 83112581 ALLERGIES Substance Reaction Event Type Date Status PCN Unknown Drug Allergy Apr, Active Zithromax Unknown Drug Allergy Apr, Active SOCIAL HISTORY Never Assessed PLAN OF CARE Activity Details Follow Up prn Reason: VITAL SIGNS Weight 199 lbs 2016-04-27 Heart Rate 74 /min 2016-04-27 Temperature 98.8 degrees Fahrenheit 2016-04-27 Height 64 in 2016-04-27 BMI 34.15 kg/m2 2016-04-27 Blood pressure systolic 136 mm Hg 2016-04-27 Blood pressure diastolic 77 mm Hg 2016-04-27 MEDICATIONS Medication Instructions Dosage Frequency Start Date End Date Duration Status Nitrostat 0.4 MG Sublingual prn as directed Jan, 30 days Active Cephalexin 500 MG Orally Twice a day 1 tablet 12h Apr, 10 day(s ) Active Lisinopril-Hydrochlorothiazide 20-12.5 MG Orally Once a day 1 tablet 24h Dec, 30 day(s) Active Linzess 145 MCG PO QD 1 capsule 24h Active Meloxicam 7.5 TAKE ONE TABLET BY MOUTH TWICE A DAY 30 Active Claritin 10 TAKE ONE TABLET BY MOUTH DAILY 90 Active [place] 5-325 MG Orally PRN 1 tablet as needed Active Loratadine 10 MG PO QD 1 tablet 24h Active Tessalon Perles 100 MG Orally Three times a day 1 capsule as needed 8h Dec, Active Premarin 0.625 MG/GM Active Triamcinolone Acetonide 0.1 APPLY TO AFFECTED AREA(S) TWO TIMES A DAY 30 Active Flonase 50 USE ONE SPRAY IN EACH NOSTRIL TWO TIMES A DAY 30 Active Ambien 5 MG Orally Once a day 1 1/2 tablet at bedtime 24h Active Ventolin HFA 108 (90 Base) MCG/ACT Inhalation every 4 hrs 2 puffs as needed 4h Active Nexium 40 TAKE ONE CAPSULE BY MOUTH DAILY 30 Active Triamcinolone Acetonide 0.1 % Externally Twice a day 1 application to affected area 12h Active Lisinopril-Hydrochlorothiazide 20-12.5 Orally Once a day 1 tablet 24h 30 Active Metoprolol Tartrate 50 TAKE ONE TABLET BY MOUTH TWICE A DAY 60 Active Symbicort 160-4.5 INHALE TWO PUFFS BY MOUTH EVERY 12 HOURS 30 Active RESULTS No Results PROCEDURES Procedure Date Ordered Result Body Site DESTROY BENIGN/PREMLG LESION Apr 27, 2016 DESTROY LESIONS, 2-14 Apr 27, 2016 IMMUNIZATIONS No Known Immunizations MEDICAL (GENERAL) [...]
--- OUTSIDE RECORDS SUMMARY | 2018-02-04 20:25 | XMS REPORT ---
Author Author NordlandJaimie lim [facility] Address [address], [address] [place], [place] [address] Care Team Providers Care Motorboat Mechanic Helper Name Role Phone Jaimie Rodriguez Unavailable PROBLEMS Type Condition ICD9-CM Code [id number] Code Onset Dates Condition Status SNOMED Code Problem COPD exacerbation J44.1 Active 549277914 Problem Constipation K59.00 Active 43390236 Problem Angina pectoris I20.9 Active 467355191 Problem Chronic sinusitis, unspecified J32.9 Active 973688226 Problem Acute sinusitis, unspecified J01.90 Active 00980299 Problem COPD (chronic obstructive pulmonary disease) with acute bronchitis J44.0 Active 652722859698373 Problem Chronic obstructive pulmonary disease, unspecified COPD type J44.9 Active 24116482 Problem Closed fracture of one rib of right side with routine healing, subsequent encounter S22.31XD Active 29423169 Problem Depression, unspecified depression type F32.9 Active 85539547 Problem Hypertension I10 Active 21318493 Problem Postmenopausal Z78.0 Active 34205394 Problem COPD (chronic obstructive pulmonary disease) J44.9 Active 32986175 Problem Hyperlipidemia E78.5 Active 01710214 Problem Intellectual disability F79 Active 39901398 ALLERGIES No Information SOCIAL HISTORY Never Assessed PLAN OF CARE Activity Details Follow Up prn Reason: VITAL SIGNS Weight 197.6 lbs 2016-03-01 Heart Rate 68 /min 2016-03-01 Temperature 98.5 degrees Fahrenheit 2016-03-01 Height 64 in 2016-03-01 BMI 33.91 kg/m2 2016-03-01 Blood pressure systolic 126 mm Hg 2016-03-01 Blood pressure diastolic 81 mm Hg 2016-03-01 MEDICATIONS Medication Instructions Dosage Frequency Start Date End Date Duration Status Tessalon Perles 100 MG Orally Three times a day 1 capsule as needed 8h Dec, Active Ventolin HFA 108 (90 Base) MCG/ACT Inhalation every 4 hrs 2 puffs as needed 4h Active [place] 5-325 MG Orally PRN 1 tablet as needed Active Bactrim DS 800-160 MG Orally Twice a day 1 tablet 12h Dec, 10 day(s) Active Claritin 10 TAKE ONE TABLET BY MOUTH DAILY 90 Active Ambien 5 MG Orally Once a day 1 1/2 tablet at bedtime 24h Active Triamcinolone Acetonide 0.1 APPLY TO AFFECTED AREA(S) TWO TIMES A DAY 30 Active Linzess 145 MCG PO QD 1 capsule 24h Active Symbicort 160-4.5 INHALE TWO PUFFS BY MOUTH EVERY 12 HOURS 30 Active Metoprolol Tartrate 50 TAKE ONE TABLET BY MOUTH TWICE A DAY 60 Active Nitrostat 0.4 MG Sublingual prn as directed Jan, 30 days Active Triamcinolone Acetonide 0.1 % Externally Twice a day 1 application to affected area 12h Active Lisinopril-Hydrochlorothiazide 20-12.5 MG Orally Once a day 1 tablet 24h 11 Dec, 2015 30 day(s) Active Premarin 0.625 MG/GM Active Loratadine 10 MG PO QD 1 tablet 24h Active Flonase 50 USE ONE SPRAY IN EACH NOSTRIL TWO TIMES A DAY 30 Active Nexium 40 TAKE ONE CAPSULE BY MOUTH DAILY 30 Active Meloxicam 7.5 TAKE ONE TABLET BY MOUTH TWICE A DAY 30 Active Macrobid 100 MG Orally every 12 hrs 1 capsule with food 12h October, 10 days Active RESULTS No Results PROCEDURES Procedure Date Ordered Result Body Site DESTROY BENIGN/PREMLG LESION Mar 01, 2016 IMMUNIZATIONS No Known Immunizations MEDICAL (GENERAL) [...]
--- OUTSIDE RECORDS SUMMARY | 2018-02-04 20:25 | XMS REPORT ---
Author Author Rogelio Prado Organization [facility] Address [address], [address] [place], [place] [address] Care Team Providers Care Thread Laster Name Role Phone Rogelio Prado Unavailable PROBLEMS Type Condition ICD9-CM Code BAA68-DP Code Onset Dates Condition Status SNOMED Code Problem Angina pectoris I20.9 Active 924873495 Problem COPD (chronic obstructive pulmonary disease) with acute bronchitis J44.0 Active 033985598263099 Problem Constipation K59.00 Active 50937664 Problem Chronic sinusitis, unspecified J32.9 Active 050672313 Problem Acute sinusitis, unspecified J01.90 Active 12670980 Problem Closed fracture of one rib of right side with routine healing, subsequent encounter S22.31XD Active 57538463 Problem Depression, unspecified depression type F32.9 Active 86954801 Problem Nocturnal hypoxia G47.34 Active 840461148 Problem Obstructive sleep apnea syndrome G47.33 Active 66200531 Problem Postmenopausal Z78.0 Active 33827451 Problem COPD (chronic obstructive pulmonary disease) J44.9 Active 73798003 Problem Hyperlipidemia E78.5 Active 24177605 Problem Intellectual disability F79 Active 81441839 Problem Hypertension I10 Active 96670537 Problem COPD exacerbation J44.1 Active 228520797 ALLERGIES No Information SOCIAL HISTORY Never Assessed [...]
--- OUTSIDE RECORDS SUMMARY | 2018-02-04 20:25 | XMS REPORT ---
Author Author Rogelio Prado Organization [facility] Address [address], [address] [place], [place] [address] Care Team Providers Care Reconnaissance Crewmember Name Role Phone Rogelio Prado Unavailable PROBLEMS Type Condition ICD9-CM Code TMB13-OD Code Onset Dates Condition Status SNOMED Code Problem COPD exacerbation J44.1 Active 596907370 Problem Constipation K59.00 Active 66512294 Problem Angina pectoris I20.9 Active 467327028 Problem Chronic sinusitis, unspecified J32.9 Active 671623353 Problem Acute sinusitis, unspecified J01.90 Active 21070652 Problem COPD (chronic obstructive pulmonary disease) with acute bronchitis J44.0 Active 151713462925931 Problem Chronic obstructive pulmonary disease, unspecified COPD type J44.9 Active 19471757 Problem Closed fracture of one rib of right side with routine healing, subsequent encounter S22.31XD Active 00970756 Problem Depression, unspecified depression type F32.9 Active 44485309 Problem Hypertension I10 Active 00932854 Problem Postmenopausal Z78.0 Active 77182576 Problem COPD (chronic obstructive pulmonary disease) J44.9 Active 14048818 Problem Hyperlipidemia E78.5 Active 68139709 Problem Intellectual disability F79 Active 02483182 ALLERGIES No Information SOCIAL HISTORY Never Assessed PLAN OF CARE VITAL SIGNS MEDICATIONS Medication Instructions Dosage Frequency Start Date End Date Duration Status Doxycycline Hyclate 100 MG Orally every 12 hrs 1 capsule 12h Mar, 10 days Active RESULTS No Results PROCEDURES [...]
--- OUTSIDE RECORDS SUMMARY | 2018-02-04 20:25 | XMS REPORT ---
Author Author MIRYAM HAN [facility] Address Unknown Phone Unavailable Care Team Providers Care Copier Technician Name Role Phone Dr. NEFTALI YANEZ PCP Unavailable Allergies Allergy Description Allergy Type [...]
--- OUTSIDE RECORDS SUMMARY | 2018-02-04 20:25 | XMS REPORT ---
Author Author MIRYAM HAN [facility] Address Unknown Phone Unavailable Care Team Providers Care Heat Reader Name Role Phone Dr. GISELLA MASSEY PCP [...]
--- OUTSIDE RECORDS SUMMARY | 2018-02-04 20:26 | XMS REPORT ---
Author Author Rogelio Prado Organization [facility] Address [address], [address] [place], [place] [address] Care Team Providers Care Lactation Coordinator Name Role Phone Rogelio Prado Unavailable PROBLEMS Type Condition ICD9-CM Code SED35-RM Code Onset Dates Condition Status SNOMED Code Problem Angina pectoris I20.9 Active 709890707 Problem COPD (chronic obstructive pulmonary disease) with acute bronchitis J44.0 Active 883083143524848 Problem Constipation K59.00 Active 68029439 Problem Chronic sinusitis, unspecified J32.9 Active 835738112 Problem Acute sinusitis, unspecified J01.90 Active 46581175 Problem Closed fracture of one rib of right side with routine healing, subsequent encounter S22.31XD Active 82047233 Problem Depression, unspecified depression type F32.9 Active 94151638 Problem Nocturnal hypoxia G47.34 Active 379830965 Problem Obstructive sleep apnea syndrome G47.33 Active 93309395 Problem Postmenopausal Z78.0 Active 80990107 Problem COPD (chronic obstructive pulmonary disease) J44.9 Active 81606751 Problem Hyperlipidemia E78.5 Active 51502452 Problem Intellectual disability F79 Active 17615084 Problem Hypertension I10 Active 58325521 Problem COPD exacerbation J44.1 Active 655433743 ALLERGIES Substance Reaction Event Type Date Status PCN Unknown Drug Allergy May, Active Zithromax Unknown Drug Allergy May, Active SOCIAL HISTORY Never Assessed PLAN OF CARE Activity Details Follow Up 3 Months Reason: VITAL SIGNS Weight 207.2 lbs 2017-06-11 Heart Rate 70 /min 2017-06-11 Height 64 in 2017-06-11 Oximetry 92 % 2017-06-11 BMI 35.56 kg/m2 2017-06-11 Blood pressure systolic 143 mm Hg 2017-06-11 Blood pressure diastolic 76 mm Hg 2017-06-11 MEDICATIONS Medication Instructions Dosage Frequency Start Date End Date Duration Status Trazodone HCl 100 MG Orally Once a day 1.5 tablet at bedtime 24h Active Ventolin HFA 108 (90 Base) MCG/ACT Inhalation every 4 hrs 2 puffs as needed 4h Active Linzess 145 MCG PO QD 1 capsule 24h Active Alendronate Sodium 5 MG Orally Once a day 1 tablet 24h May, 30 day(s) Active Symbicort 160-4.5 Inhalation Twice a day INHALE TWO PUFFS BY MOUTH EVERY 12 HOURS 12h Active Claritin 10 TAKE ONE TABLET BY MOUTH DAILY 90 Active Celexa 40 MG Orally Once a day 0.5 tablet 24h Active Flonase 50 USE ONE SPRAY IN EACH NOSTRIL TWO TIMES A DAY Active Metoprolol Tartrate 50 TAKE ONE TABLET BY MOUTH TWICE A DAY Active Aspirin Adult Low Dose 81 MG Orally Once a day 1-2 tablet 24h Active Nexium 40 TAKE ONE CAPSULE BY MOUTH DAILY 30 Active Lisinopril-Hydrochlorothiazide 20-12.5 Orally bid 2 tablet 12h 30 days Active Albuterol Sulfate (2.5 MG/3ML) 0.083% Inhalation every 4 hrs prn 3 ml Jun, Active Triamcinolone Acetonide 0.1 APPLY TO AFFECTED AREA(S) TWO TIMES A DAY 30 Active Nitrostat 0.4 MG Sublingual prn as directed Jan, Active Multivitamin Adult - Active Meloxicam 7.5 MG Orally twice a day TAKE ONE TABLET BY MOUTH TWICE A DAY 12h 30 days Active RESULTS No Results [...]
--- OUTSIDE RECORDS SUMMARY | 2018-02-04 20:26 | XMS REPORT ---
Author Author Zenia Padilla [facility] Address [address] [place] [address] Care Team Providers Care Cloth Roll Winder Name Role Phone Zenia Padilla Unavailable PROBLEMS Type Condition ICD9-CM Code QPN51-WZ Code Onset Dates Condition Status SNOMED Code Problem Constipation K59.00 Active 52139931 Problem Depression, unspecified depression type F32.9 Active 12015903 Problem COPD (chronic obstructive pulmonary disease) with acute bronchitis J44.0 Active 354566669889471 Problem Gastritis without bleeding, unspecified chronicity, unspecified gastritis type K29.70 Active 4159179 Problem Chronic sinusitis, unspecified J32.9 Active 478031431 Problem Obstructive sleep apnea syndrome G47.33 Active 01252578 Problem Closed fracture of one rib of right side with routine healing, subsequent encounter S22.31XD Active 81973387 Problem Acute sinusitis, unspecified J01.90 Active 56299815 Problem Nocturnal hypoxia G47.34 Active 337459549 Problem Hyperlipidemia E78.5 Active 10569436 Problem COPD (chronic obstructive pulmonary disease) J44.9 Active 42615175 Problem Intellectual disability F79 Active 48068487 Problem Hypertension I10 Active 59800982 Problem COPD exacerbation J44.1 Active 249070163 Problem Postmenopausal Z78.0 Active 40524157 Problem Angina pectoris I20.9 Active 873587335 ALLERGIES Substance Reaction Event Type Date Status PCN Unknown Drug Allergy Jun, Active Zithromax Unknown Drug Allergy Jun, Active SOCIAL HISTORY Never Assessed PLAN OF CARE Activity Details Follow Up prn Reason: Pending Test CXR, PA & lateral VITAL SIGNS Weight 192.8 lbs 2017-07-19 Heart Rate 82 /min 2017-07-19 Height 64 in 2017-07-19 Oximetry 98 % 2017-07-19 BMI 33.09 kg/m2 2017-07-19 Blood pressure systolic 108 mm Hg 2017-07-19 Blood pressure diastolic 84 mm Hg 2017-07-19 MEDICATIONS Medication Instructions Dosage Frequency Start Date End Date Duration Status Symbicort 160-4.5 Inhalation Twice a day INHALE TWO PUFFS BY MOUTH EVERY 12 HOURS 12h Active Triamcinolone Acetonide 0.1 APPLY TO AFFECTED AREA(S) TWO TIMES A DAY 30 Active Aspirin Adult Low Dose 81 MG Orally Once a day 1-2 tablet 24h Active Flonase 50 USE ONE SPRAY IN EACH NOSTRIL TWO TIMES A DAY Active Albuterol Sulfate (2.5 MG/3ML) 0.083% Inhalation every 4 hrs prn 3 ml Jun, Active [place] 5-325 MG Orally every 6 hrs 1 tablet as needed 6h Jun, 10 days Active Ventolin HFA 108 (90 Base) MCG/ACT Inhalation every 4 hrs 2 puffs as needed 4h Active Alendronate Sodium 5 TAKE ONE TABLET BY MOUTH DAILY 30 Active Metoprolol Tartrate 50 TAKE ONE TABLET BY MOUTH TWICE A DAY 30 Active Nitrostat 0.4 MG Sublingual prn as directed Jan, Active Claritin 10 TAKE ONE TABLET BY MOUTH DAILY 90 Active Celexa 40 MG Orally Once a day 0.5 tablet 24h Active Nexium 40 TAKE ONE CAPSULE BY MOUTH DAILY 30 Active Levofloxacin 500 MG Orally Once a day 1 tablet 24h Dec, 07 days Active Linzess 145 MCG PO QD 1 capsule 24h Active Multivitamin Adult - Active Lisinopril-Hydrochlorothiazide 20-12.5 Orally bid 2 tablet 12h 30 days Active Trazodone HCl 100 MG Orally Once a day 1.5 tablet at bedtime 24h Active Alendronate Sodium 5 MG Orally Once a day 1 tablet 24h May, 30 day(s) Active Meloxicam 15 MG Orally Once a day 1 tablet 24h 30 days Active RESULTS Name Result Date Reference Range * CBC w/diff 2017-07-19 WBC 4.4 4.3 - 11.0 RBC 4.80 4.20 - 5.40 HEMOGLOBIN 13.2 12.0 - 16.0 HEMATOCRIT 40.7 38.0 - 47.0 MCV 85 82 - 100 MCH 27.5 26.0 - 33.0 MCHC 32.5 31.0 - 36.0 RDW 13.8 11.5 - 14.[address] 175 150 - 375 NEUTROPHILS 62.3 50.0 - 76.0 LYMPHOCYTES 24.6 20.0 - 40.0 MONOCYTES 10.8 2.0 - 12.0 EOSINOPHILS 1.7 1.0 - 3.0 BASOPHILS 0.6 0.0 - 1.0 NEUTROPHILS 2.8 1.4 - 6.5 LYMPHOCYTES 1.1 1.0 - 4.0 MONOCYTES 0.5 0.0 - 0.7 EOSINOPHILS 0.1 0.0 - 0.7 BASOPHILS 0.0 0.0 - 0.2 MANUAL DIFF NOT INDICATED * Chem-8 2017-07-19 BUN 46 7 - 18 CREATININE 1.4 0.7 - 1.2 SODIUM 135 137 - 145 POTASSIUM 4.6 3.4 - 5.3 CHLORIDE 100 98 - 107 CO2 27.0 22.0 - 30.0 GLUCOSE 107 65 - 110 CALCIUM 9.3 8.4 - 10.3 PROCEDURES No Known procedures IMMUNIZATIONS No Known [...]
--- OUTSIDE RECORDS SUMMARY | 2018-02-04 20:26 | XMS REPORT ---
Author Author Rogelio Prado [facility] Address [address], [address] [place], [place] [address] Care Team Providers Care Administrative Judge Name Role Phone Rogelio Prado Unavailable PROBLEMS ALLERGIES No Information SOCIAL HISTORY No smoking Hx information available PLAN OF CARE VITAL SIGNS MEDICATIONS Unknown Medications RESULTS No Results PROCEDURES No Known procedures IMMUNIZATIONS No Known Immunizations MEDICAL (GENERAL) HISTORY
--- OUTSIDE RECORDS SUMMARY | 2018-02-04 20:27 | XMS REPORT ---
Author Author Rogelio Prado Organization [facility] Address [address], [address] [place], [place] [id number] Care Team Providers Care Dba Name Role Phone Penrose, Rogelio Unavailable PROBLEMS Type Condition ICD9-CM Code [id number] Code Onset Dates Condition Status SNOMED Code Problem Constipation K59.00 Active 76672166 Problem Closed fracture of one rib of right side with routine healing, subsequent encounter S22.31XD Active 55183019 Problem COPD (chronic obstructive pulmonary disease) with acute bronchitis J44.0 Active [id number] Problem BMI 35.0-35.9,adult Z68.35 Active 450949195 Problem Obstructive sleep apnea syndrome G47.33 Active 00263886 Problem Chronic sinusitis, unspecified J32.9 Active 612090085 Problem Nocturnal hypoxia G47.34 Active 575387817 Problem Gastritis without bleeding, unspecified chronicity, unspecified gastritis type K29.70 Active 5440322 Problem Acute sinusitis, unspecified J01.90 Active 43440950 Problem Episode of recurrent major depressive disorder, unspecified depression episode severity F33.9 Active 601360823 Problem Hyperlipidemia E78.5 Active 79997376 Problem Postmenopausal Z78.0 Active 19360332 Problem Intellectual disability F79 Active 01673125 Problem COPD (chronic obstructive pulmonary disease) J44.9 Active 49632182 Problem COPD exacerbation J44.1 Active 778571057 Problem Hypertension I10 Active 96198580 Problem Angina pectoris I20.9 Active 762169367 ALLERGIES Substance Reaction Event Type Date Status Zithromax Unknown Drug Allergy Nov, Active ENCOUNTERS Encounter Location Date Diagnosis [facility] [address] [place], [place] [id number] Aug, [facility] [address], [address] [place], [place] [id number] Jan, [facility] [address], [address] [place], [place] [id number] Nov, COPD (chronic obstructive pulmonary disease) J44.9 ; Angina pectoris I20.9 ; Nocturnal hypoxia G47.34 and Hypertension I10 [facility] [address] [place], [place] [id number] Nov, [facility] [address] [place] [id number] October, [facility] [address] [place] [address] October, [facility] [address] [place] [id number] October, [facility] [address] [place] [id number] October, Hypertension I10 ; COPD (chronic obstructive pulmonary disease) J44.9 ; Hyperlipidemia E78.5 ; COPD exacerbation J44.1 ; Episode of recurrent major depressive disorder, unspecified depression episode severity F33.9 and BMI 35.0- 35.9,adult Z68.35 [facility] [address], [address] [place] [id number] October, [facility] [address] [place] [id number] Sep, [facility] [address] [place] [id number] Sep, [facility] [address] [place] [id number] Sep, Hypertension I10 ; COPD (chronic obstructive pulmonary disease) J44.9 ; Nocturnal hypoxia G47.34 and Obstructive sleep apnea syndrome G47.33 [facility] [address] [place] [id number] Sep, [facility] [address] [place] [id number] Sep, [facility] [address] [place] [id number] Aug, [facility] [address] [place] [id number] Aug, [facility] [address] [place] [id number] Aug, Encounter for screening mammogram for malignant neoplasm of breast Z12.31 ; Tinnitus of right ear H93.11 and Obstructive sleep apnea G47.33 [facility] [address] [place], [place] [id number] Aug, [facility] [address], [address] [place] [id number] Aug, Encounter for Medicare annual wellness exam Z00.00 and Advanced directives , counseling/discussion Z71.89 [facility] [address] [place] [id number] Jul, [facility] [address] [place] [id number] Jul, [facility] [address] [place] [id number] Jul, [facility] [address] [place], [place] [id number] Jul, Right sided abdominal pain R10.9 ; Hypertension I10 ; COPD (chronic obstructive pulmonary disease) J44.9 and Hyperlipidemia E78.5 [facility] [address] [place] [id number] Jul, [facility] [address] [place] [id number] Jul, [facility] [address] [place] [id number] Jul, Acute gastritis without hemorrhage, unspecified gastritis type K29.00 ; Diarrhea, unspecified type R19.7 ; Hypertension I10 ; COPD (chronic obstructive pulmonary disease) J44.9 and Hyperlipidemia E78.5 [facility] [address] [place], [place] [id number] Jul, [facility] [address] [place] [id number] Jun, Acute lower respiratory infection J22 ; Other fatigue R53.83 and History of influenza Z87.09 [facility] [address], [address] [place], [place] [id number] Jun, [facility] [address] [place] [id number] Jun, [facility] [address] [place] [id number] Jun, Acute lower respiratory infection J22 ; Other fatigue R53.83 and History of influenza Z87.09 [facility] [address] [place] [id number] Jun, [facility] [address] [place] [id number] Jun, [facility] [address] [place] [id number] Jun, [facility] [address] [place] [id number] Jun, [facility] [address] [place] [id number] Jun, [facility] [address] [place] [address] Jun, Acute pain of left shoulder M25.512 [facility] [address] [place] [id number] Jun, Acute pain of left shoulder M25.512 ; Gastritis without bleeding, unspecified chronicity, unspecified gastritis type K29.70 ; Hypertension I10 ; COPD (chronic obstructive pulmonary disease) J44.9 and Hyperlipidemia E78.5 [facility] [address] [place] [id number] Jun, [facility] [address] [place] [id number] Jun, [facility] [address] [place] [id number] May, [facility] [address] [place] [id number] May, Acute pain of left shoulder M25.512 ; Intellectual disability F79 and Closed fracture of one rib of right side with routine healing, subsequent encounter S22.31XD [facility] [address] [place] [id number] May, [facility] [address] [place] [id number] May, [facility] [address] [place] [id number] May, [facility] [address] [place] [id number] May, Acute bronchitis, unspecified organism J20.9 ; Hypertension I10 ; COPD ( chronic obstructive pulmonary disease) J44.9 ; Hyperlipidemia E78.5 ; Nocturnal hypoxia G47.34 and Obstructive sleep apnea syndrome G47.33 [facility] [address] [place] [id number] Apr, Pain with urination R30.9 ; Hypertension I10 ; COPD (chronic obstructive pulmonary disease) J44.9 ; Hyperlipidemia E78.5 and Acute bronchitis, unspecified organism J20.9 [facility] [address] [place] [id number] Apr, Hypertension I10 [facility] [address] [place] [id number] Apr, Acute sinusitis, unspecified J01.90 [facility] [address] [place] [id number] Apr, [facility] [address] [place] [id number] Mar, [facility] [address] [place] [id number] Mar, Other specified bacterial agents as the cause of diseases classified elsewhere B96.89 and Acute sinusitis, unspecified J01.90 [facility] [address] [place], [place] [id number] Mar, Closed fracture of one rib of right side with routine healing, subsequent encounter S22.31XD [facility] [address] [place] [id number] Mar, [facility] [address] [place], [place] [id number] Mar, COPD (chronic obstructive pulmonary disease) J44.9 ; Closed fracture of one rib of right side with routine healing, subsequent encounter S22.31XD ; Hypertension I10 ; Constipation K59.00 ; Angina pectoris I20.9 ; Depression, unspecified depression type F32.9 and Left ear pain H92.02 [facility] [address] [place], [place] [address] Mar, Elevated glucose R73.09 [facility] [address] [place], [place] [id number] Mar, [facility] [address] [place] [id number] Mar, Left-sided chest wall pain R07.89 and Hypertension I10 [facility] [address] [place], [place] [id number] Feb, [facility] [address] [place] [id number] Feb, Hypertension I10 [facility] [address] [place], [place] [id number] Feb, Closed fracture of one rib of right side, initial encounter S22.31XA ; Intellectual disability F79 ; COPD (chronic obstructive pulmonary disease) J44.9 ; Hyperlipidemia E78.5 and Hypertension I10 [facility] [address] [place] [id number] Feb, [facility] [address] [place] [id number] Feb, Dysuria R30.0 [facility] [address] [place], [place] [id number] Jan, Closed fracture of one rib of right side, initial encounter S22.31XA [facility] [address] [place], [place] [address] Jan, [facility] [address] [place] [id number] Jan, [facility] [address] [place] [id number] Jan, Contusion of left side of back, initial encounter S20.222A [facility] [address] [place] [address] Jan, [facility] [address] [place] [id number] Dec, [facility] [address] [place] [id number] Dec, [facility] [address] [place] [id number] Dec, COPD (chronic obstructive pulmonary disease) J44.9 and Hypertension I10 [facility] [address] [place] [id number] Dec, [facility] [address] [place] [id number] Dec, [facility] [address] [place] [id number] Dec, Skin irritation R23.8 [facility] [address] [place] [id number] Dec, [facility] [address] [place] [id number] Dec, [facility] [address] [place] [id number] Dec, [facility] [address] [place] [id number] Dec, [facility] [address] [place] [id number] October, Dysuria R30.0 and Pain of left calf M79.662 [facility] [address] [place] [address] October, Pain of right great toe M79.674 and Overgrown toenails L60.2 [facility] [address] [place] [address] Sep, [facility] [address] [place] [address] Sep, [facility] [address] [place] [address] Sep, Pain with urination R30.9 ; Abdominal pain, unspecified location R10.9 and Loose stools R19.5 [facility] [address] [place] [address] Sep, Hypertension I10 [facility] [address] [place] [address] Sep, [facility] [address] [place] [address] Sep, Acute cystitis with hematuria N30.01 [facility] [address] [place] [address] Sep, [facility] [address] [place] [id number] Sep, Urinary frequency R35.0 [facility] [address] [place] [address] Aug, [facility] [address] [place] [id number] Aug, Screening for breast cancer Z12.39 [facility] [address] [place] [id number] Aug, [facility] [address] [place] [id number] Aug, [facility] [address] [place] [id number] Aug, [facility] [address] [place] [id number] Aug, [facility] [address] [place] [id number] Aug, [facility] [address] [place] [address] Aug, [facility] [address] [place] [id number] Aug, [facility] [address] [place] [address] Aug, [facility] [address] [place] [id number] Jul, Dysuria R30.0 [facility] [address] [place], [place] [address] Jul, Chest wall pain R07.89 and Myofascial pain M79.1 [facility] [address] [place] [id number] Jul, [facility] [address] [place] [id number] Jul, Depression, unspecified depression type F32.9 ; Chronic obstructive pulmonary disease, unspecified COPD type J44.9 ; Hypertension I10 ; Angina pectoris I20.9 and Costochondritis M94.0 [facility] [address] [place], [place] [id number] Jun, Acute non-recurrent maxillary sinusitis J01.00 [facility] [address] [place], [place] [id number] Jun, [facility] [address] [place] [id number] Jun, [facility] [address] [place] [address] Jun, [facility] [address] [place] [id number] Jun, [facility] [address] [place] [address] Jun, [facility] [address] [place] [address] Jun, Left-sided chest wall pain R07.89 and Cough due to bronchospasm J98.01 [facility] [address] [place], [place] [id number] Jun, [facility] [address] [place] [id number] May, [facility] [address] [place] [id number] May, Left-sided chest wall pain R07.89 [facility] [address] [place], [place] [id number] May, Left-sided chest wall pain R07.89 and Cough due to bronchospasm J98.01 [facility] [address] [place] [id number] May, [facility] [address] [place] [address] May, Encounter for Medicare annual wellness exam Z00.00 ; Advanced directives, counseling/discussion Z71.89 ; Screening for osteoporosis Z13.820 ; Bilateral hearing loss, unspecified hearing loss type H91.93 ; Intellectual disability F79 ; COPD (chronic obstructive pulmonary disease) J44.9 ; Postmenopausal Z78.0 ; Hypertension I10 ; Hyperlipidemia E78.5 ; Constipation K59.00 and Angina pectoris I20.9 [facility] [address] [place], [place] [id number] May, [facility] [address] [place] [id number] May, Left-sided chest wall pain R07.89 and Chest wall contusion, left, initial encounter S20.212A [facility] [address] [place], [place] [id number] May, 2016 Dog bite, subsequent encounter W54.0XXD [facility] [address] [place], [place] [address] May, Open bite of right hand, initial encounter S61.451A and Bitten by dog, initial encounter W54.0XXA [facility] [address] [place], [place] [id number] May, [facility] [address] [place] [id number] May, [facility] [address] [place] [id number] Apr, Chest congestion R09.89 ; COPD exacerbation J44.1 and Dermatitis L30.9 [facility] [address] [place], [place] [id number] Apr, Secondary infection of skin L08.89 and Keratotic lesion L57.0 [facility] [address] [place], [place] [id number] Mar, Hypertension I10 ; Bronchitis J40 and Cough R05 [facility] [address] [place], [place] [id number] Feb, [facility] [address] [place], [place] [id number] Feb, Skin tag L91.8 [facility] [address] [place], [place] [id number] Dec, Dysuria R30.0 and Vaginitis N76.0 [facility] [address] [place], [place] [id number] Dec, Constipation K59.00 ; Hypertension I10 ; Bronchitis J40 ; Post-tussive emesis R11.10 and Cough R05 [facility] [address] [place], [place] [id number] Dec, [facility] [address] [place] [id number] Nov, Constipation K59.00 and Bronchitis J40 [facility] [address] [place], [place] [id number] Nov, [facility] [address] [place] [id number] October, Dysuria R30.0 [facility] [address] [place], [place] [id number] October, Urinary frequency R35.0 and UTI (urinary tract infection) N39.0 [facility] [address] [place], [place] [address] Sep, Intellectual disability F79 ; COPD (chronic obstructive pulmonary disease ) J44.9 ; Postmenopausal Z78.0 ; Hypertension I10 and Hyperlipidemia E78.5 [facility] [address] [place], [place] [id number] Aug, Pain with urination R30.9 ; Wrist pain, left M25.532 and Pain in scapula M89.8X1 [address], [address] [place], [place] [id number] Jul, Pain with urination R30.9 and Vaginitis N76.[address] [place], [place] [id number] Jul, Screening for breast cancer Z12.[address] [place], [place] [id number] Jul, Acute upper respiratory infection, unspecified J06.9 and Other viral agents as the cause of diseases classified elsewhere B97.[address] [id number] Jun, Cellulitis L03.[address], [facility] [address] [place], [place] [address] Jun, Gastritis 535.50 ; URI (upper respiratory infection) J06.9 and Ingrown toenail L60.[address], [facility] 200 [place], [place] [id number] Apr, Gastritis 535.50 and Oral lesion K13.[address], [facility] 200 [place] [id number] Mar, Dysuria R30.0 and Pain of right scapula M89.8X1 [address], [address] [place], [place] [id number] Mar, [address], [facility] 200 [place] [id number] Mar, [address] [place] [id number] Feb, Right knee pain 719.[address], [address] [place], [place] [id number] Feb, [address] [place] [id number] Feb, Right knee pain 719.[address], [facility] 200 [place], [place] [address] Jan, Allergic rhinitis 477.9 and Cough 786.[address], [facility] 200 [place] [address] Jan, [address], [facility] [address] [place] [address] Jan, Insect bites 919.4 [facility] [address] [place] [address] Jan, Fatigue 780.79 ; Gastritis 535.50 and Wound abscess 879.9 [facility] [address] [place], [place] [id number] Dec, [facility] [address] [place] [address] Nov, Fatigue 780.79 ; Weakness generalized 780.79 and Gastritis 535.50 [facility] [address] [place] [id number] Nov, [facility] [address] [place] [address] October, [facility] [address] [place] [id number] October, [facility] [address] [place] [id number] October, [facility] [address] [place] [id number] October, [facility] [address] [place] [id number] Sep, [facility] [address] [place], [place] [id number] Sep, [facility] [address] [place] [id number] Sep, [facility] [address] [place] [address] Aug, [facility] [address] [place], [place] [address] Aug, [facility] [address] [place] [id number] Jul, [facility] [address] [place] [id number] Jul, [facility] [address] [place] [id number] May, [facility] [address] [place] [id number] May, [facility] [address] [place] [id number] Apr, [facility] [address] [place] [address] Mar, [facility] [address] [place] [address] Mar, [facility] [address] [place] [id number] Feb, [facility] [address] [place] [id number] Jan, [facility] [address] [place] [id number] Jan, [facility] [address] [place] [address] Nov, [facility] [address] [place] [id number] October, [facility] [address] [place] [id number] October, [facility] [address] [place] [address] Sep, [facility] [address] [place] [id number] Aug, [facility] [address] [place] [id number] Jul, [facility] [address] [place] [id number] Jun, [facility] [address] [place] [id number] May, [facility] [address] [place] [address] Mar, [facility] [address] [place] [id number] Mar, [facility] [address] [place] [id number] Jan, [facility] [address] [place] [id number] Dec, [facility] [address] [place] [id number] Nov, [facility] [address] [place] [address] October, [facility] [address] [place] [address] Aug, [facility] [address] [place] [id number] Jul, [facility] [address] [place] [id number] Jun, [facility] [address] [place] [address] Jun, [facility] [address] [place] [address] Jun, [facility] [address] [place] [id number] May, [facility] [address] [place] [id number] Apr, [facility] [address] [place] [address] Mar, [facility] [address] [place] [address] Mar, [facility] [address], [address] [place] [id number] Mar, IMMUNIZATIONS No Known Immunizations SOCIAL HISTORY Never Assessed REASON FOR VISIT oxygen recertification PLAN OF CARE Activity Details Follow Up 2 Months Reason: VITAL SIGNS Weight 204.0 lbs 2017-11-25 Heart Rate 73 /min 2017-11-25 Height 64 in 2017-11-25 Oximetry 97 % 2017-11-25 BMI 35.01 kg/m2 2017-11-25 Blood pressure systolic 126 mm Hg 2017-11-25 Blood pressure diastolic 73 mm Hg 2017-11-25 MEDICATIONS Medication Instructions Dosage Frequency Start Date End Date Duration Status Claritin 10 TAKE ONE TABLET BY MOUTH DAILY 90 Active Lisinopril-Hydrochlorothiazide 20-12.5 TAKE TWO TABLETS BY MOUTH TWICE A DAY Active Nitrostat 0.4 MG Sublingual prn as directed Jan, Active PredniSONE 20 MG Orally Once a day 1 tablet 24h 24 Sep, 2017 5 days Active Alendronate Sodium 5 MG Orally Once a day 1 tablet 24h May, 30 day(s) Active Ventolin HFA 90 INHALE ONE TO TWO PUFFS BY MOUTH EVERY 4 HOURS NEEDED FOR SHORTNESS OF BREATH FOR COUGH Active Levofloxacin 500 MG Orally Once a day 1 tablet 24h Dec, 07 days Not-Taking Trazodone HCl 100 MG Orally Once a day 1.5 tablet at bedtime 24h Active Multivitamin Adult - Active Symbicort 160-4.5 INHALE TWO PUFFS BY MOUTH EVERY 12 HOURS Active Zantac 150 MG Orally BID 1 tablet 12h Jul, 15 days Active Celexa 40 MG Orally Once a day 0.5 tablet 24h Active Ventolin HFA 108 (90 Base) MCG/ACT Inhalation every 4 hrs 2 puffs as needed 4h Active Aspirin Adult Low Dose 81 MG Orally Once a day 1-2 tablet 24h Active Triamcinolone Acetonide 0.1 APPLY TO AFFECTED AREA(S) TWO TIMES A DAY 30 Active Levaquin 750 MG Orally Once a day, every other day 1 tablet Jun, 14 days Not-Taking Metoprolol Tartrate 50 TAKE ONE TABLET BY MOUTH TWICE A DAY 30 Active [place] 5-325 MG Orally every 6 hrs 1 tablet as needed 6h Jun, 10 days Active Albuterol Sulfate (2.5 MG/3ML) 0.083% Inhalation every 4 hrs prn 3 ml Jun, Active Nitrostat 0.4 DISSOLVE 1 TAB UNDER TONGUE FOR CHEST PAIN - IF PAIN REMAINS AFTER 5 MIN, CALL 911 AND REPEAT DOSE. MAX 3 TABS IN 15 MINUTES 8 Active Guaifenesin-Codeine 100-10 MG/5ML Orally every 4 hrs prn 5 ml Jan, 15 days Not-Taking Nexium 40 TAKE ONE CAPSULE BY MOUTH DAILY 30 Active Linzess 145 MCG PO QD 1 capsule 24h Active PredniSONE 20 MG Orally Once a day 1 tablet 24h Jun, 05 days Not-Taking Meloxicam 15 MG Orally Once a day 1 tablet 24h 30 days Active Flonase 50 USE ONE SPRAY IN EACH NOSTRIL TWO TIMES A DAY Not- Taking RESULTS No Results PROCEDURES No Known procedures [...]
--- OUTSIDE RECORDS SUMMARY | 2018-02-04 20:27 | XMS REPORT ---
Author Author Rogelio Prado Organization [facility] Address [address], [address] [place], [place] [id number] Care Team Providers Care Packer Name Role Phone [place], Rogelio Unavailable PROBLEMS Type Condition ICD9-CM Code LAC19-EH Code Onset Dates Condition Status SNOMED Code Problem Constipation K59.00 Active 17713689 Problem Closed fracture of one rib of right side with routine healing, subsequent encounter S22.31XD Active 92406755 Problem COPD (chronic obstructive pulmonary disease) with acute bronchitis J44.0 Active [id number] Problem BMI 35.0-35.9,adult Z68.35 Active 059787428 Problem Obstructive sleep apnea syndrome G47.33 Active 31858983 Problem Acute sinusitis, unspecified J01.90 Active 48835064 Problem Nocturnal hypoxia G47.34 Active 574895343 Problem Gastritis without bleeding, unspecified chronicity, unspecified gastritis type K29.70 Active 5253385 Problem Chronic sinusitis, unspecified J32.9 Active 546922082 Problem Episode of recurrent major depressive disorder, unspecified depression episode severity F33.9 Active 583053010 Problem Hyperlipidemia E78.5 Active 64573762 Problem COPD (chronic obstructive pulmonary disease) J44.9 Active 69759452 Problem Intellectual disability F79 Active 49147182 Problem Hypertension I10 Active 09789828 Problem COPD exacerbation J44.1 Active 570557554 Problem Postmenopausal Z78.0 Active 64175839 Problem Angina pectoris I20.9 Active 249792076 ALLERGIES No Information ENCOUNTERS Encounter Location Date Diagnosis [facility] [address] [place], [place] [id number] Aug, [facility] [address] [place] [id number] Nov, [facility] [address] [place] [id number] Nov, [facility] [address] [place] [id number] October, [facility] [address] [place] [id number] October, [facility] [address] [place] [id number] October, [facility] [address] [place] [id number] October, Hypertension I10 ; COPD (chronic obstructive pulmonary disease) J44.9 ; Hyperlipidemia E78.5 ; COPD exacerbation J44.1 ; Episode of recurrent major depressive disorder, unspecified depression episode severity F33.9 and BMI 35.0- 35.9,adult Z68.35 [facility] [address] [place], [place] [id number] October, [facility] [address] [place] [id number] Sep, [facility] [address] [place] [id number] Sep, [facility] [address] [place] [id number] Sep, Hypertension I10 ; COPD (chronic obstructive pulmonary disease) J44.9 ; Nocturnal hypoxia G47.34 and Obstructive sleep apnea syndrome G47.33 [facility] [address] [place] [id number] Sep, [facility] [address] [place] [id number] Sep, [facility] [address] [place] [id number] Aug, [facility] [address] [place] [id number] Aug, [facility] [address] [place] [id number] Aug, Encounter for screening mammogram for malignant neoplasm of breast Z12.31 ; Tinnitus of right ear H93.11 and Obstructive sleep apnea G47.33 [facility] [address] [place] [id number] Aug, [facility] [address] [place] [address] Aug, Encounter for Medicare annual wellness exam Z00.00 and Advanced directives , counseling/discussion Z71.89 [facility] [address] [place] [id number] Jul, [facility] [address] [place] [id number] Jul, [facility] [address] [place] [id number] Jul, [facility] [address] [place] [id number] Jul, Right sided abdominal pain R10.9 ; Hypertension I10 ; COPD (chronic obstructive pulmonary disease) J44.9 and Hyperlipidemia E78.5 [facility] [address] [place] [id number] Jul, [facility] [address] [place] [id number] Jul, [facility] [address] [place] [id number] Jul, Acute gastritis without hemorrhage, unspecified gastritis type K29.00 ; Diarrhea, unspecified type R19.7 ; Hypertension I10 ; COPD (chronic obstructive pulmonary disease) J44.9 and Hyperlipidemia E78.5 [facility] [address] [place] [id number] Jul, [facility] [address] [place] [id number] Jun, Acute lower respiratory infection J22 ; Other fatigue R53.83 and History of influenza Z87.09 [facility] [address] [place] [id number] Jun, [facility] [address] [place] [id number] Jun, [facility] [address] [place] [id number] Jun, Acute lower respiratory infection J22 ; Other fatigue R53.83 and History of influenza Z87.09 [facility] [address] [place] [id number] Jun, [facility] [address] [place] [id number] Jun, [facility] [address] [place] [id number] Jun, [facility] [address] [place] [id number] Jun, [facility] [address] [place] [id number] Jun, [facility] [address] [place] [id number] Jun, Acute pain of left shoulder M25.512 [facility] [address] [place] [id number] Jun, Acute pain of left shoulder M25.512 ; Gastritis without bleeding, unspecified chronicity, unspecified gastritis type K29.70 ; Hypertension I10 ; COPD (chronic obstructive pulmonary disease) J44.9 and Hyperlipidemia E78.5 [facility] [address] [place] [id number] Jun, [facility] [address] [place] [id number] Jun, [facility] [address] [place] [id number] May, [facility] [address] [place] [id number] May, Acute pain of left shoulder M25.512 ; Intellectual disability F79 and Closed fracture of one rib of right side with routine healing, subsequent encounter S22.31XD [facility] [address] [place] [id number] May, [facility] [address] [place] [id number] May, [facility] [address] [place] [id number] May, [facility] [address] [place] [id number] May, Acute bronchitis, unspecified organism J20.9 ; Hypertension I10 ; COPD ( chronic obstructive pulmonary disease) J44.9 ; Hyperlipidemia E78.5 ; Nocturnal hypoxia G47.34 and Obstructive sleep apnea syndrome G47.33 [facility] [address] [place] [id number] Apr, Pain with urination R30.9 ; Hypertension I10 ; COPD (chronic obstructive pulmonary disease) J44.9 ; Hyperlipidemia E78.5 and Acute bronchitis, unspecified organism J20.9 [facility] [address] [place] [id number] Apr, Hypertension I10 [facility] [address] [place] [id number] Apr, Acute sinusitis, unspecified J01.90 [facility] [address] [place] [id number] Apr, [facility] [address] [place] [id number] Mar, [facility] [address] [place] [id number] Mar, Other specified bacterial agents as the cause of diseases classified elsewhere B96.89 and Acute sinusitis, unspecified J01.90 [facility] [address] [place] [id number] Mar, Closed fracture of one rib of right side with routine healing, subsequent encounter S22.31XD [facility] [address] [place] [id number] Mar, [facility] [address] [place] [id number] Mar, COPD (chronic obstructive pulmonary disease) J44.9 ; Closed fracture of one rib of right side with routine healing, subsequent encounter S22.31XD ; Hypertension I10 ; Constipation K59.00 ; Angina pectoris I20.9 ; Depression, unspecified depression type F32.9 and Left ear pain H92.02 [facility] [address] [place] [id number] Mar, Elevated glucose R73.09 [facility] [address] [place] [id number] Mar, [facility] [address] [place] [id number] Mar, Left-sided chest wall pain R07.89 and Hypertension I10 [facility] [address] [place] [id number] Feb, [facility] [address] [place] [id number] Feb, Hypertension I10 [facility] [address] [place] [id number] Feb, Closed fracture of one rib of right side, initial encounter S22.31XA ; Intellectual disability F79 ; COPD (chronic obstructive pulmonary disease) J44.9 ; Hyperlipidemia E78.5 and Hypertension I10 [facility] [address] [place] [id number] Feb, [facility] [address] [place] [id number] Feb, Dysuria R30.0 [facility] [address] [place] [id number] Jan, Closed fracture of one rib of right side, initial encounter S22.31XA [facility] [address] [place] [id number] Jan, [facility] [address] [place] [id number] Jan, [facility] [address] [place] [id number] Jan, Contusion of left side of back, initial encounter S20.222A [facility] [address] [place] [id number] Jan, [facility] [address] [place] [id number] Dec, [facility] [address] [place] [id number] Dec, [facility] [address] [place] [id number] Dec, COPD (chronic obstructive pulmonary disease) J44.9 and Hypertension I10 [facility] [address] [place] [id number] Dec, [facility] [address] [place] [address] Dec, [facility] [address] [place] [id number] Dec, Skin irritation R23.8 [facility] [address] [place] [id number] Dec, [facility] [address] [place] [id number] Dec, [facility] [address] [place] [address] Dec, [facility] [address] [place] [id number] Dec, [facility] [address] [place] [id number] October, Dysuria R30.0 and Pain of left calf M79.662 [facility] [address] [place] [id number] October, Pain of right great toe M79.674 and Overgrown toenails L60.2 [facility] [address] [place] [id number] Sep, [facility] [address] [place] [id number] Sep, [facility] [address] [place] [id number] Sep, Pain with urination R30.9 ; Abdominal pain, unspecified location R10.9 and Loose stools R19.5 [facility] [address] [place] [address] Sep, Hypertension I10 [facility] [address] [place] [address] Sep, [facility] [address] [place] [id number] Sep, Acute cystitis with hematuria N30.01 [facility] [address] [place] [id number] Sep, [facility] [address] [place] [address] Sep, Urinary frequency R35.0 [facility] [address] [place] [id number] Aug, [facility] [address] [place] [id number] Aug, Screening for breast cancer Z12.39 [facility] [address] [place] [id number] Aug, [facility] [address] [place] [id number] Aug, [facility] [address] [place] [id number] Aug, [facility] [address] [place] [id number] Aug, [facility] [address] [place] [id number] Aug, [facility] [address] [place] [id number] Aug, [facility] [address] [place] [id number] Aug, [facility] [address] [place] [id number] Aug, [facility] [address] [place] [id number] Jul, Dysuria R30.0 [facility] [address] [place] [id number] Jul, Chest wall pain R07.89 and Myofascial pain M79.1 [facility] [address] [place] [id number] Jul, [facility] [address] [place] [id number] Jul, Depression, unspecified depression type F32.9 ; Chronic obstructive pulmonary disease, unspecified COPD type J44.9 ; Hypertension I10 ; Angina pectoris I20.9 and Costochondritis M94.0 [facility] [address] [place] [id number] Jun, Acute non-recurrent maxillary sinusitis J01.00 [facility] [address] [place] [id number] Jun, [facility] [address] [place] [id number] Jun, [facility] [address] [place] [id number] Jun, [facility] [address] [place] [id number] Jun, [facility] [address] [place] [id number] Jun, [facility] [address] [place] [id number] Jun, Left-sided chest wall pain R07.89 and Cough due to bronchospasm J98.01 [facility] [address] [place] [id number] Jun, [facility] [address] [place] [id number] May, [facility] [address] [place] [id number] May, Left-sided chest wall pain R07.89 [facility] [address] [place] [id number] May, Left-sided chest wall pain R07.89 and Cough due to bronchospasm J98.01 [facility] [address] [place] [id number] May, [facility] [address] [place] [id number] May, Encounter for Medicare annual wellness exam Z00.00 ; Advanced directives, counseling/discussion Z71.89 ; Screening for osteoporosis Z13.820 ; Bilateral hearing loss, unspecified hearing loss type H91.93 ; Intellectual disability F79 ; COPD (chronic obstructive pulmonary disease) J44.9 ; Postmenopausal Z78.0 ; Hypertension I10 ; Hyperlipidemia E78.5 ; Constipation K59.00 and Angina pectoris I20.9 [facility] [address] [place] [id number] May, [facility] [address] [place] [id number] May, Left-sided chest wall pain R07.89 and Chest wall contusion, left, initial encounter S20.212A [facility] [address] [place], [place] [id number] May, Dog bite, subsequent encounter W54.0XXD [facility] [address] [place] [id number] May, Open bite of right hand, initial encounter S61.451A and Bitten by dog, initial encounter W54.0XXA [facility] [address] [place] [id number] May, [facility] [address] [place] [id number] May, [facility] [address] [place] [id number] Apr, Chest congestion R09.89 ; COPD exacerbation J44.1 and Dermatitis L30.9 [facility] [address] [place] [id number] Apr, Secondary infection of skin L08.89 and Keratotic lesion L57.0 [facility] [address] [place], [place] [id number] Mar, Hypertension I10 ; Bronchitis J40 and Cough R05 [facility] [address] [place] [id number] Feb, [facility] [address] [place] [id number] Feb, Skin tag L91.8 [facility] [address] [place] [id number] Dec, Dysuria R30.0 and Vaginitis N76.0 [facility] [address] [place], [place] [id number] Dec, Constipation K59.00 ; Hypertension I10 ; Bronchitis J40 ; Post-tussive emesis R11.10 and Cough R05 [facility] [address] [place] [id number] Dec, [facility] [address] [place] [id number] Nov, Constipation K59.00 and Bronchitis J40 [facility] [address] [place] [id number] Nov, [facility] [address] [place] [id number] October, Dysuria R30.0 [facility] [address] [place] [id number] October, Urinary frequency R35.0 and UTI (urinary tract infection) N39.0 [facility] [address] [place] [id number] Sep, Intellectual disability F79 ; COPD (chronic obstructive pulmonary disease ) J44.9 ; Postmenopausal Z78.0 ; Hypertension I10 and Hyperlipidemia E78.5 [facility] [address] [place] [id number] Aug, Pain with urination R30.9 ; Wrist pain, left M25.532 and Pain in scapula M89.8X1 [facility] [address], [address] [place], [place] [id number] Jul, Pain with urination R30.9 and Vaginitis N76.[address] [place], [place] [id number] Jul, Screening for breast cancer Z12.[address], [facility] [address] [place], [place] [id number] Jul, Acute upper respiratory infection, unspecified J06.9 and Other viral agents as the cause of diseases classified elsewhere B97.[address] [place] [id number] Jun, Cellulitis L03.[address] [place] [id number] Jun, Gastritis 535.50 ; URI (upper respiratory infection) J06.9 and Ingrown toenail L60.[address] [place] [id number] Apr, Gastritis 535.50 and Oral lesion K13.[address], [facility] [address] [place] [id number] Mar, Dysuria R30.0 and Pain of right scapula M89.8X1 [address], [address] [place], [place] [id number] Mar, [address], [address] [place] [id number] Mar, [address], [address] [place] [id number] Feb, Right knee pain 719.[address] [place] [id number] Feb, [address], [address] [place] [id number] Feb, Right knee pain 719.[address] [place] [id number] Jan, Allergic rhinitis 477.9 and Cough 786.[address] [place] [address] Jan, [address], [facility] [address] [place] [id number] Jan, Insect bites 919.[address] [place] [id number] Jan, Fatigue 780.79 ; Gastritis 535.50 and Wound abscess 879.[address] [place] [address] Dec, [facility] [address] [place] [address] Nov, Fatigue 780.79 ; Weakness generalized 780.79 and Gastritis 535.50 [facility] [address] [place] [address] Nov, [facility] [address] [place] [id number] October, [facility] [address] [place] [id number] October, [facility] [address] [place] [id number] October, [facility] [address] [place] [address] October, [facility] [address] [place] [address] Sep, [facility] [address] [place] [id number] Sep, [facility] [address] [place] [id number] Sep, [facility] [address] [place] [address] Aug, [facility] [address] [place] [id number] Aug, [facility] [address] [place] [address] Jul, [facility] [address] [place] [address] Jul, [facility] [address] [place] [address] May, [facility] [address] [place] [id number] May, [facility] [address] [place] [id number] Apr, [facility] [address] [place] [id number] Mar, [facility] [address] [place] [address] Mar, [facility] [address] [place] [id number] Feb, [facility] [address] [place] [id number] Jan, [facility] [address] [place] [address] Jan, [facility] [address] [place] [address] Nov, [facility] [address] [place] [id number] October, [facility] [address] [place] [id number] October, [facility] [address] [place] [id number] Sep, [facility] [address] [place] [address] Aug, [facility] [address] [place] [id number] Jul, [facility] [address] [place] [id number] Jun, [facility] [address] [place] [id number] May, [facility] [address] [place] [id number] Mar, [facility] [address] [place] [id number] Mar, [facility] [address] [place] [id number] Jan, [facility] [address] [place] [address] Dec, [facility] [address] [place] [address] Nov, [facility] [address] [place] [address] October, [facility] [address] [place] [address] Aug, [facility] [address] [place] [id number] Jul, [facility] [address] [place] [id number] Jun, [facility] [address] [place] [address] Jun, [facility] [address] [place] [address] Jun, [facility] [address] [place] [address] May, [facility] [address] [place] [id number] Apr, [facility] [address] [place] [id number] Mar, [facility] [address] [place] [address] Mar, [facility] [address] [place] [id number] Mar, IMMUNIZATIONS No Known Immunizations SOCIAL HISTORY Never Assessed REASON FOR VISIT Pulse Ox Report UPDATE PLAN OF CARE VITAL SIGNS MEDICATIONS Unknown [...]
[2018-02-04 20:28] LABS: INR 0.9 (0.8-1.4); PROTHROMBIN TIME PATIENT 12.3 SEC (12.2-14.7)
--- OUTSIDE RECORDS SUMMARY | 2018-02-04 20:28 | XMS REPORT ---
Author Author Rogelio Prado Organization [facility] Address [address] [place], [place] [id number] Care Team Providers Care Manuscripts Curator Name Role Phone [place], Rogelio Unavailable PROBLEMS Type Condition ICD9-CM Code [id number] Code Onset Dates Condition Status SNOMED Code Problem Angina pectoris I20.9 Active [id number] Problem COPD (chronic obstructive pulmonary disease) with acute bronchitis J44.0 Active [id number] Problem Constipation K59.00 Active 83133859 Problem Gastritis without bleeding, unspecified chronicity, unspecified gastritis type K29.70 Active 3021255 Problem Obstructive sleep apnea G47.33 Active 19669776 Problem Nocturnal hypoxia G47.34 Active 875761757 Problem Closed fracture of one rib of right side with routine healing, subsequent encounter S22.31XD Active 80810935 Problem Chronic sinusitis, unspecified J32.9 Active 430926438 Problem Acute sinusitis, unspecified J01.90 Active 96315109 Problem Episode of recurrent major depressive disorder, unspecified depression episode severity F33.9 Active 770286907 Problem Postmenopausal Z78.0 Active 05740885 Problem COPD (chronic obstructive pulmonary disease) J44.9 Active 10729702 Problem Hyperlipidemia E78.5 Active 14991301 Problem Intellectual disability F79 Active 47227465 Problem Hypertension I10 Active 98751422 Problem COPD exacerbation J44.1 Active 349956666 ALLERGIES No Information ENCOUNTERS Encounter Location Date Diagnosis [facility] [address] [place], [place] [id number] Aug, [facility] [address] [place], [place] [id number] Sep, [facility] [address] [place] [id number] Sep, [facility] [address] [place], [place] [id number] Aug, [facility] [address] [place], [place] [address] Aug, [facility] [address] [place], [place] [id number] Aug, Encounter for screening mammogram for malignant neoplasm of breast Z12.31 ; Tinnitus of right ear H93.11 and Obstructive sleep apnea G47.33 [facility] [address] [place], [place] [id number] Aug, [facility] [address] [place], [place] [id number] Aug, Encounter for Medicare annual wellness exam Z00.00 and Advanced directives , counseling/discussion Z71.89 [facility] [address] [place], [place] [id number] Jul, [facility] [address] [place], [place] [id number] Jul, [facility] [address] [place], [place] [address] Jul, [facility] [address] [place], [place] [address] Jul, Right sided abdominal pain R10.9 ; Hypertension I10 ; COPD (chronic obstructive pulmonary disease) J44.9 and Hyperlipidemia E78.5 [facility] [address] [place], [place] [address] Jul, [facility] [address] [place] [address] Jul, [facility] [address] [place], [place] [id number] Jul, Acute gastritis without hemorrhage, unspecified gastritis type K29.00 ; Diarrhea, unspecified type R19.7 ; Hypertension I10 ; COPD (chronic obstructive pulmonary disease) J44.9 and Hyperlipidemia E78.5 [facility] [address] [place], [place] [id number] Jul, [facility] [address] [place], [place] [address] Jun, Acute lower respiratory infection J22 ; Other fatigue R53.83 and History of influenza Z87.09 [facility] [address] [place], [place] [id number] Jun, [facility] [address] [place] [address] Jun, [facility] [address] [place], [place] [id number] Jun, Acute lower respiratory infection J22 ; Other fatigue R53.83 and History of influenza Z87.09 [facility] [address] [place], [place] [id number] Jun, [facility] [address] [place], [place] [address] Jun, [facility] [address] [place], [place] [id number] Jun, [facility] [address] [place], [place] [address] Jun, [facility] [address] [place] [id number] Jun, [facility] [address] [place], [place] [address] Jun, Acute pain of left shoulder M25.512 [facility] [address] [place], [place] [id number] Jun, Acute pain of left shoulder M25.512 ; Gastritis without bleeding, unspecified chronicity, unspecified gastritis type K29.70 ; Hypertension I10 ; COPD (chronic obstructive pulmonary disease) J44.9 and Hyperlipidemia E78.5 [facility] [address] [place], [place] [id number] Jun, [facility] [address] [place], [place] [address] Jun, [facility] [address] [place] [id number] May, [facility] [address] [place], [place] [id number] May, Acute pain of left shoulder M25.512 ; Intellectual disability F79 and Closed fracture of one rib of right side with routine healing, subsequent encounter S22.31XD [facility] [address] [place], [place] [id number] May, [facility] [address] [place] [address] May, [facility] [address] [place], [place] [id number] May, [facility] [address] [place], [place] [address] May, Acute bronchitis, unspecified organism J20.9 ; Hypertension I10 ; COPD ( chronic obstructive pulmonary disease) J44.9 ; Hyperlipidemia E78.5 ; Nocturnal hypoxia G47.34 and Obstructive sleep apnea syndrome G47.33 [facility] [address] [place], [place] [id number] Apr, Pain with urination R30.9 ; Hypertension I10 ; COPD (chronic obstructive pulmonary disease) J44.9 ; Hyperlipidemia E78.5 and Acute bronchitis, unspecified organism J20.9 [facility] [address] [place], [place] [id number] Apr, Hypertension I10 [facility] [address] [place], [place] [id number] Apr, Acute sinusitis, unspecified J01.90 [facility] [address] [place] [address] Apr, [facility] [address] [place], [place] [id number] Mar, [facility] [address] [place], [place] [address] Mar, Other specified bacterial agents as the cause of diseases classified elsewhere B96.89 and Acute sinusitis, unspecified J01.90 [facility] [address] [place], [place] [id number] Mar, Closed fracture of one rib of right side with routine healing, subsequent encounter S22.31XD [facility] [address] [place], [place] [id number] Mar, [facility] [address] [place], [place] [id number] Mar, COPD (chronic obstructive pulmonary disease) J44.9 ; Closed fracture of one rib of right side with routine healing, subsequent encounter S22.31XD ; Hypertension I10 ; Constipation K59.00 ; Angina pectoris I20.9 ; Depression, unspecified depression type F32.9 and Left ear pain H92.02 [facility] [address] [place], [place] [address] Mar, Elevated glucose R73.09 [facility] [address] [place], [place] [id number] Mar, [facility] [address] [place], [place] [id number] Mar, Left-sided chest wall pain R07.89 and Hypertension I10 [facility] [address] [place], [place] [address] Feb, [facility] [address] [place], [place] [address] Feb, Hypertension I10 [facility] [address] [place], [place] [address] Feb, Closed fracture of one rib of right side, initial encounter S22.31XA ; Intellectual disability F79 ; COPD (chronic obstructive pulmonary disease) J44.9 ; Hyperlipidemia E78.5 and Hypertension I10 [facility] [address] [place], [place] [address] Feb, [facility] [address] [place] [address] Feb, Dysuria R30.0 [facility] [address] [place], [place] [id number] Jan, Closed fracture of one rib of right side, initial encounter S22.31XA [facility] [address] [place], [place] [address] Jan, [facility] [address] [place], [place] [address] Jan, [facility] [address] [place], [place] [id number] Jan, Contusion of left side of back, initial encounter S20.222A [facility] [address] [place], [place] [address] Jan, [facility] [address] [place], [place] [address] Dec, [facility] [address] [place], [place] [address] Dec, [facility] [address] [place], [place] [address] Dec, COPD (chronic obstructive pulmonary disease) J44.9 and Hypertension I10 [facility] [address] [place], [place] [address] Dec, [facility] [address] [place] [address] Dec, [facility] [address] [place] [address] Dec, Skin irritation R23.8 [facility] [address] [place], [place] [address] Dec, [facility] [address] [place] [address] Dec, [facility] [address] [place], [place] [address] Dec, [facility] [address] [place], [place] [address] Dec, [facility] [address] [place], [place] [address] October, Dysuria R30.0 and Pain of left calf M79.662 [facility] [address] [place], [place] [address] October, Pain of right great toe M79.674 and Overgrown toenails L60.2 [facility] [address] [place], [place] [address] Sep, [facility] [address] [place] [address] Sep, [facility] [address] [place], [place] [address] Sep, Pain with urination R30.9 ; Abdominal pain, unspecified location R10.9 and Loose stools R19.5 [facility] [address] [place], [place] [address] Sep, Hypertension I10 [facility] [address] [place], [place] [address] Sep, [facility] [address] [place], [place] [address] Sep, Acute cystitis with hematuria N30.01 [facility] [address] [place], [place] [address] Sep, [facility] [address] [place], [place] [address] Sep, Urinary frequency R35.0 [facility] [address] [place], [place] [address] Aug, [facility] [address] [place], [place] [address] Aug, Screening for breast cancer Z12.39 [facility] [address] [place], [place] [id number] Aug, [facility] [address] [place], [place] [address] Aug, [facility] [address] [place] [address] Aug, [facility] [address] [place], [place] [address] Aug, [facility] [address] [place], [place] [address] Aug, [facility] [address] [place], [place] [address] Aug, [facility] [address] [place], [place] [address] Aug, [facility] [address] [place] [address] Aug, [facility] [address] [place], [place] [address] Jul, Dysuria R30.0 [facility] [address] [place], [place] [address] Jul, Chest wall pain R07.89 and Myofascial pain M79.1 [facility] [address] [place], [place] [address] Jul, [facility] [address] [place], [place] [address] Jul, Depression, unspecified depression type F32.9 ; Chronic obstructive pulmonary disease, unspecified COPD type J44.9 ; Hypertension I10 ; Angina pectoris I20.9 and Costochondritis M94.0 [facility] [address] [place], [place] [address] Jun, Acute non-recurrent maxillary sinusitis J01.00 [facility] [address] [place], [place] [address] Jun, [facility] [address] [place] [address] Jun, [facility] [address] [place] [address] Jun, [facility] [address] [place], [place] [address] Jun, [facility] [address] [place], [place] [address] Jun, [facility] [address] [place], [place] [address] Jun, Left-sided chest wall pain R07.89 and Cough due to bronchospasm J98.01 [facility] [address] [place], [place] [address] Jun, [facility] [address] [place], [place] [address] May, [facility] [address] [place], [place] [address] May, Left-sided chest wall pain R07.89 [facility] [address] [place], [place] [address] May, Left-sided chest wall pain R07.89 and Cough due to bronchospasm J98.01 [facility] [address] [place] [address] May, [facility] [address] [place], [place] [address] May, Encounter for Medicare annual wellness exam Z00.00 ; Advanced directives, counseling/discussion Z71.89 ; Screening for osteoporosis Z13.820 ; Bilateral hearing loss, unspecified hearing loss type H91.93 ; Intellectual disability F79 ; COPD (chronic obstructive pulmonary disease) J44.9 ; Postmenopausal Z78.0 ; Hypertension I10 ; Hyperlipidemia E78.5 ; Constipation K59.00 and Angina pectoris I20.9 [facility] [address] [place], [place] [address] May, [facility] [address] [place], [place] [id number] May, Left-sided chest wall pain R07.89 and Chest wall contusion, left, initial encounter S20.212A [facility] [address] [place], [place] [id number] May, Dog bite, subsequent encounter W54.0XXD [facility] [address] [place], [place] [address] May, Open bite of right hand, initial encounter S61.451A and Bitten by dog, initial encounter W54.0XXA [facility] [address] [place], [place] [address] May, [facility] [address] [place], [place] [address] May, [facility] [address] [place], [place] [address] Apr, Chest congestion R09.89 ; COPD exacerbation J44.1 and Dermatitis L30.9 [facility] [address] [place], [place] [address] Apr, Secondary infection of skin L08.89 and Keratotic lesion L57.0 [facility] [address] [place], [place] [address] Mar, Hypertension I10 ; Bronchitis J40 and Cough R05 [facility] [address] [place], [place] [address] Feb, [facility] [address] [place], [place] [address] Feb, Skin tag L91.8 [facility] [address] [place], [place] [id number] Dec, Dysuria R30.0 and Vaginitis N76.0 [facility] [address] [place], [place] [address] Dec, Constipation K59.00 ; Hypertension I10 ; Bronchitis J40 ; Post-tussive emesis R11.10 and Cough R05 [facility] [address] [place], [place] [id number] Dec, [facility] [address] [place], [place] [address] Nov, Constipation K59.00 and Bronchitis J40 [facility] [address] [place], [place] [address] Nov, [facility] [address] [place], [place] [address] October, Dysuria R30.[address], [facility] [address] [place], [place] [address] October, Urinary frequency R35.0 and UTI (urinary tract infection) N39.[address], [facility] [address] [place], [place] [id number] Sep, Intellectual disability F79 ; COPD (chronic obstructive pulmonary disease ) J44.9 ; Postmenopausal Z78.0 ; Hypertension I10 and Hyperlipidemia E78.[address], [facility] [address] [place], [place] [address] Aug, Pain with urination R30.9 ; Wrist pain, left M25.532 and Pain in scapula M89.8X1 [address] [place], [place] [address] Jul, Pain with urination R30.9 and Vaginitis N76.[address] [place], [place] [id number] Jul, Screening for breast cancer Z12.[address], [facility] [address] [place], [place] [id number] Jul, Acute upper respiratory infection, unspecified J06.9 and Other viral agents as the cause of diseases classified elsewhere B97.[address], [facility] [address] [place], [place] [address] Jun, Cellulitis L03.[address], [facility] [address] [place], [place] [address] Jun, Gastritis 535.50 ; URI (upper respiratory infection) J06.9 and Ingrown toenail L60.[address], [facility] [address] [place], [place] [address] Apr, Gastritis 535.50 and Oral lesion K13.[address] [place], [place] [address] Mar, Dysuria R30.0 and Pain of right scapula M89.8X1 [address], [facility] [address] [place], [place] [address] Mar, [address], [facility] [place] [address] Mar, [address] [place], [place] [address] Feb, Right knee pain 719.[address] [place], [place] [address] Feb, [facility] [address] [place], [place] [address] Feb, Right knee pain 719.46 [facility] [address] [place], [place] [address] Jan, Allergic rhinitis 477.9 and Cough 786.2 [facility] [address] [place], [place] [address] Jan, [facility] [address] [place], [place] [address] Jan, Insect bites 919.4 [facility] [address] [place] [id number] Jan, Fatigue 780.79 ; Gastritis 535.50 and Wound abscess 879.9 [facility] [address] [place], [place] [id number] Dec, [facility] [address] [place], [place] [address] Nov, Fatigue 780.79 ; Weakness generalized 780.79 and Gastritis 535.50 [facility] [address] [place], [place] [address] Nov, [facility] [address] [place], [place] [address] October, [facility] [address] [place], [place] [address] October, [facility] [address] [place], [place] [address] October, [facility] [address] [place], [place] [address] October, [facility] [address] [place], [place] [address] Sep, [facility] [address] [place], [place] [address] Sep, [facility] [address] [place], [place] [address] Sep, [facility] [address] [place], [place] [id number] Aug, [facility] [address] [place], [place] [address] Aug, [facility] [address] [place], [place] [address] Jul, [facility] [address] [place], [place] [address] Jul, [facility] [address] [place], [place] [address] May, [facility] [address] [place], [place] [address] May, [facility] [address] [place] [id number] Apr, [facility] [address] [place] [id number] Mar, [facility] [address] [place] [address] Mar, [facility] [address] [place] [id number] Feb, [facility] [address] [place] [id number] Jan, [facility] [address] [place] [address] Jan, [facility] [address] [place] [address] Nov, [facility] [address] [place] [address] October, [facility] [address] [place] [address] October, [facility] [address] [place] [id number] Sep, [facility] [address] [place] [address] Aug, [facility] [address] [place] [id number] Jul, [facility] [address] [place] [id number] Jun, [facility] [address] [place] [id number] May, [facility] [address] [place] [address] Mar, [facility] [address] [place] [address] Mar, [facility] [address] [place] [id number] Jan, [facility] [address] [place] [address] Dec, [facility] [address] [place] [address] Nov, [facility] [address] [place] [address] October, [facility] [address] [place] [id number] Aug, [facility] [address] [place] [id number] Jul, [facility] [address] [place] [address] Jun, [facility] [address] [place] [address] Jun, [facility] [address] [place], [place] [address] Jun, [facility] [address] [place], [place] [address]398 May, [facility] [address] [place], [place] [address] Apr, [facility] [address] [place], [place] [address] Mar, [facility] [address] [place], [place] [address] Mar, [facility] [address] [place], [place] [id number] Mar, IMMUNIZATIONS No Known Immunizations SOCIAL HISTORY Never Assessed REASON FOR VISIT CCM PLAN OF CARE VITAL SIGNS MEDICATIONS Unknown [...]
--- OUTSIDE RECORDS SUMMARY | 2018-02-04 20:29 | XMS REPORT ---
Author Author Sarina Turk [facility] Address [address], [facility] [address] [place], [place] [id number] Care Team Providers Care Business Services Administrator Name Role Phone Sarina Turk Unavailable PROBLEMS Type Condition ICD9-CM Code [id number] Code Onset Dates Condition Status SNOMED Code Problem Angina pectoris I20.9 Active 679791750 Problem COPD (chronic obstructive pulmonary disease) with acute bronchitis J44.0 Active [id number] Problem Constipation K59.00 Active 22476430 Problem Gastritis without bleeding, unspecified chronicity, unspecified gastritis type K29.70 Active 5169308 Problem Obstructive sleep apnea G47.33 Active 36971007 Problem Nocturnal hypoxia G47.34 Active 584206536 Problem Closed fracture of one rib of right side with routine healing, subsequent encounter S22.31XD Active 57220546 Problem Chronic sinusitis, unspecified J32.9 Active 994353375 Problem Acute sinusitis, unspecified J01.90 Active 04284493 Problem Episode of recurrent major depressive disorder, unspecified depression episode severity F33.9 Active 041403124 Problem Postmenopausal Z78.0 Active 57349427 Problem COPD (chronic obstructive pulmonary disease) J44.9 Active 30725822 Problem Hyperlipidemia E78.5 Active 06340128 Problem Intellectual disability F79 Active 86019931 Problem Hypertension I10 Active 45635987 Problem COPD exacerbation J44.1 Active [id number] ALLERGIES Substance Reaction Event Type Date Status PCN Unknown Drug Allergy Aug, Active Zithromax Unknown Drug Allergy Aug, Active ENCOUNTERS Encounter Location Date Diagnosis [facility] [address], [address] [place], [place] [id number] Aug, [facility] [address], [address] [place], [place] [id number] Aug, [facility] [address], [facility] [address] [place], [place] [id number] Aug, Encounter for screening mammogram for malignant neoplasm of breast Z12.31 ; Tinnitus of right ear H93.11 and Obstructive sleep apnea G47.33 [facility] [address] [place], [place] [id number] Aug, [facility] [address] [place] [id number] Aug, Encounter for Medicare annual wellness exam Z00.00 and Advanced directives , counseling/discussion Z71.89 [facility] [address] [place] [id number] Jul, [facility] [address] [place] [address] Jul, [facility] [address] [place] [address] Jul, [facility] [address], [address] [place], [place] [address] Jul, Right sided abdominal pain R10.9 ; Hypertension I10 ; COPD (chronic obstructive pulmonary disease) J44.9 and Hyperlipidemia E78.5 [facility] [address] [place], [place] [id number] Jul, [facility] [address] [place] [id number] Jul, [facility] [address] [place] [address] Jul, Acute gastritis without hemorrhage, unspecified gastritis type K29.00 ; Diarrhea, unspecified type R19.7 ; Hypertension I10 ; COPD (chronic obstructive pulmonary disease) J44.9 and Hyperlipidemia E78.5 [facility] [address] [place], [place] [address] Jul, [facility] [address] [place] [address] Jun, Acute lower respiratory infection J22 ; Other fatigue R53.83 and History of influenza Z87.09 [facility] [address] [place] [id number] Jun, [facility] [address] [place] [address] Jun, [facility] [address] [place] [id number] Jun, Acute lower respiratory infection J22 ; Other fatigue R53.83 and History of influenza Z87.09 [facility] [address] [place] [address] Jun, [facility] [address] [place] [address] Jun, [facility] [address] [place] [address] Jun, [facility] [address] [place] [address] Jun, [facility] [address] [place] [address] Jun, [facility] [address], [address] [place] [id number] Jun, Acute pain of left shoulder M25.512 [facility] [address] [place] [address] Jun, Acute pain of left shoulder M25.512 ; Gastritis without bleeding, unspecified chronicity, unspecified gastritis type K29.70 ; Hypertension I10 ; COPD (chronic obstructive pulmonary disease) J44.9 and Hyperlipidemia E78.5 [facility] [address] [place], [place] [address] Jun, [facility] [address] [place] [address] Jun, [facility] [address] [place] [id number] May, [facility] [address] [place] [address] May, Acute pain of left shoulder M25.512 ; Intellectual disability F79 and Closed fracture of one rib of right side with routine healing, subsequent encounter S22.31XD [facility] [address] [place] [address] May, [facility] [address] [place] [address] May, [facility] [address] [place] [address] May, [facility] [address] [place] [address] May, Acute bronchitis, unspecified organism J20.9 ; Hypertension I10 ; COPD ( chronic obstructive pulmonary disease) J44.9 ; Hyperlipidemia E78.5 ; Nocturnal hypoxia G47.34 and Obstructive sleep apnea syndrome G47.33 [facility] [address] [place], [place] [id number] Apr, Pain with urination R30.9 ; Hypertension I10 ; COPD (chronic obstructive pulmonary disease) J44.9 ; Hyperlipidemia E78.5 and Acute bronchitis, unspecified organism J20.9 [facility] [address] [place] [id number] Apr, Hypertension I10 [facility] [address] [place], [place] [address] Apr, Acute sinusitis, unspecified J01.90 [facility] [address] [place] [id number] Apr, [facility] [address], [address] [place] [id number] Mar, [facility] [address], [address] [place] [address] Mar, Other specified bacterial agents as the cause of diseases classified elsewhere B96.89 and Acute sinusitis, unspecified J01.90 [facility] [address] [place] [address] Mar, Closed fracture of one rib of right side with routine healing, subsequent encounter S22.31XD [facility] [address] [place] [address] Mar, [facility] [address] [place], [place] [address] Mar, COPD (chronic obstructive pulmonary disease) J44.9 ; Closed fracture of one rib of right side with routine healing, subsequent encounter S22.31XD ; Hypertension I10 ; Constipation K59.00 ; Angina pectoris I20.9 ; Depression, unspecified depression type F32.9 and Left ear pain H92.02 [facility] [address] [place] [address] Mar, Elevated glucose R73.09 [facility] [address] [place] [id number] Mar, [facility] [address] [place], [place] [id number] Mar, Left-sided chest wall pain R07.89 and Hypertension I10 [facility] [address] [place] [id number] Feb, [facility] [address], [address] [place] [address] Feb, Hypertension I10 [facility] [address] [place], [place] [address] Feb, Closed fracture of one rib of right side, initial encounter S22.31XA ; Intellectual disability F79 ; COPD (chronic obstructive pulmonary disease) J44.9 ; Hyperlipidemia E78.5 and Hypertension I10 [facility] [address] [place], [place] [address] Feb, [facility] [address] [place], [place] [address] Feb, Dysuria R30.0 [facility] [address] [facility] [place] [id number] Jan, Closed fracture of one rib of right side, initial encounter S22.31XA [facility] [address] [place] [address] Jan, [facility] [address] [place] [address] Jan, [facility] [address] [place] [address] Jan, Contusion of left side of back, initial encounter S20.222A [facility] [address] [place] [address] Jan, [facility] [address] [place], [place] [address] Dec, [facility] [address] [place] [address] Dec, [facility] [address] [place], [place] [address] Dec, COPD (chronic obstructive pulmonary disease) J44.9 and Hypertension I10 [facility] [address] [place] [address] Dec, [facility] [address] [place] [address] Dec, [facility] [address] [place] [address] Dec, Skin irritation R23.8 [facility] [address] [place] [address] Dec, [facility] [address] [place] [address] Dec, [facility] [address] [place], [place] [address] Dec, [facility] [address] [place] [address] Dec, [facility] [address] [place], [place] [address] October, Dysuria R30.0 and Pain of left calf M79.662 [facility] [address] [place], [place] [address] October, Pain of right great toe M79.674 and Overgrown toenails L60.2 [facility] [address] [place] [address] Sep, [facility] [address] [place] [address] Sep, [facility] [address] [place] [address] Sep, Pain with urination R30.9 ; Abdominal pain, unspecified location R10.9 and Loose stools R19.5 [facility] [address] [place], [place] [address] Sep, Hypertension I10 [facility] [address] [place] [address] Sep, [facility] [address] [place], [place] [address] Sep, Acute cystitis with hematuria N30.01 [facility] [address] [place] [address] Sep, [facility] [address] [place] [address] Sep, Urinary frequency R35.0 [facility] [address] [place], [place] [address] Aug, [facility] [address] [place], [place] [address] Aug, Screening for breast cancer Z12.39 [facility] [address] [place], [place] [address] Aug, [facility] [address] [place] [address] Aug, [facility] [address] [place] [address] Aug, [facility] [address] [place] [address] Aug, [facility] [address] [place] [address] Aug, [facility] [address] [place] [address] Aug, [facility] [address] [place] [address] Aug, [facility] [address] [place] [address] Aug, [facility] [address] [place] [address] Jul, Dysuria R30.0 [facility] [address] [place], [place] [address] Jul, Chest wall pain R07.89 and Myofascial pain M79.1 [facility] [address] [place] [address] Jul, [facility] [address] [place] [address] Jul, Depression, unspecified depression type F32.9 ; Chronic obstructive pulmonary disease, unspecified COPD type J44.9 ; Hypertension I10 ; Angina pectoris I20.9 and Costochondritis M94.0 [facility] [address] [place] [address] Jun, Acute non-recurrent maxillary sinusitis J01.00 [facility] [address] [place] [address] Jun, [facility] [address] [place] [address] Jun, [facility] [address] [place] [address] Jun, [facility] [address] [place] [address] Jun, [facility] [address] [place], [place] [address] Jun, [facility] [address] [place] [address] Jun, Left-sided chest wall pain R07.89 and Cough due to bronchospasm J98.01 [facility] [address] [place] [address] Jun, [facility] [address] [place] [address] May, [facility] [address] [place] [address] May, Left-sided chest wall pain R07.89 [facility] [address] [place], [place] [address] May, Left-sided chest wall pain R07.89 and Cough due to bronchospasm J98.01 [facility] [address] [place], [place] [address] May, [facility] [address] [place], [place] [address] May, Encounter for Medicare annual wellness exam [...] [facility] [address] [place] [address] May, [facility] [address] [place] [address] May, Left-sided chest wall pain R07.89 and Chest wall contusion, left, initial encounter S20.212A [facility] [address] [place], [place] [address] May, Dog bite, subsequent encounter W54.0XXD [facility] [address] [place], [place] [address] May, Open bite of right hand, initial encounter S61.451A and Bitten by dog, initial encounter W54.0XXA [facility] [address] [place], [place] [address] May, [facility] [address] [place] [address] May, [facility] [address], [address] [place], [place] [address] Apr, Chest congestion R09.89 ; COPD exacerbation J44.1 and Dermatitis L30.9 [facility] [address], [address] [place], [place] [address] Apr, Secondary infection of skin L08.89 and Keratotic lesion L57.0 [facility] [address] [place], [place] [address] Mar, Hypertension I10 ; Bronchitis J40 and Cough R05 [facility] [address] [place] [address] Feb, [facility] [address] [place], [place] [address] Feb, Skin tag L91.8 [facility] [address] [place], [place] [id number] Dec, Dysuria R30.0 and Vaginitis N76.0 [facility] [address], [address] [place], [place] [address] Dec, Constipation K59.00 ; Hypertension I10 ; Bronchitis J40 ; Post-tussive emesis R11.10 and Cough R05 [facility] [address] [place] [address] Dec, [facility] [address] [place] [address] Nov, Constipation K59.00 and Bronchitis J40 [facility] [address] [place] [address] Nov, [facility] [address] [place] [address] October, Dysuria R30.0 [facility] [address] [place] [address] October, Urinary frequency R35.0 and UTI (urinary tract infection) N39.0 [facility] [address], [address] [place] [address] Sep, Intellectual disability F79 ; COPD (chronic obstructive pulmonary disease ) J44.9 ; Postmenopausal Z78.0 ; Hypertension I10 and Hyperlipidemia E78.5 [facility] [address], [address] [place], [place] [address] Aug, Pain with urination R30.9 ; Wrist pain, left M25.532 and Pain in scapula M89.8X1 [facility] [address], [address] [place], [place] [address] Jul, Pain with urination R30.9 and Vaginitis N76.0 [facility] [address], [address] [place] [address] Jul, Screening for breast cancer Z12.[address] [place], [place] [address] Jul, Acute upper respiratory infection, unspecified J06.9 and Other viral agents as the cause of diseases classified elsewhere B97.89 [facility] [address], [address] [place], [place] [address] Jun, Cellulitis L03.90 [facility] [address], [address] [place], [place] [address] Jun, Gastritis 535.50 ; URI (upper respiratory infection) J06.9 and Ingrown toenail L60.[address] [place] [address] Apr, Gastritis 535.50 and Oral lesion K13.[address] [place] [address] Mar, Dysuria R30.0 and Pain of right scapula M89.8X1 [facility] [address], [address] [place] [address] Mar, [facility] [address] [place], [place] [address] Mar, [address] [place] [address] Feb, Right knee pain 719.[address] [place], [place] [address] Feb, [address] [place] [address] Feb, Right knee pain 719.46 [facility] [address] [place], [place] [address] Jan, Allergic rhinitis 477.9 and Cough 786.2 [facility] [address] [place], [place] [address] Jan, [facility] [address] [place] [address] Jan, Insect bites 919.4 [facility] [address] [place], [place] [address] Jan, Fatigue 780.79 ; Gastritis 535.50 and Wound abscess 879.9 [facility] [address] [place], [place] [address] Dec, [facility] [address] [place] [address] Nov, Fatigue 780.79 ; Weakness generalized 780.79 and Gastritis 535.50 [facility] [address] [place] [address] Nov, [facility] [address] [place] [address] October, [facility] [address] [place] [address] October, [facility] [address] [place] [address] October, [facility] [address] [place] [address] October, [facility] [address] [place] [address] Sep, [facility] [address] [place] [address] Sep, [facility] [address] [place] [address] Sep, [facility] [address] [place], [place] [address] Aug, [facility] [address] [place] [address] Aug, [facility] [address] [place] [address] Jul, [facility] [address] [place] [address] Jul, [facility] [address] [place] [address] May, [facility] [address] [place] [address] May, [facility] [address] [place], [place] [address] Apr, [facility] [address] [place] [address] Mar, [facility] [address] [place] [address] Mar, [facility] [address] [place] [address] Feb, [facility] [address] [place] [address] Jan, [facility] [address] [place] [address] Jan, [facility] [address] [place] [address] Nov, [facility] [address] [place] [address] October, [facility] [address] [place] [address] October, [facility] [address] [place] [address] Sep, [facility] [address] [place] [address] Aug, [facility] [address] [place] [address] Jul, [facility] [address] [place] [address] Jun, [facility] [address] [place] [address] May, [facility] [address] [place] [address] Mar, [facility] [address] [place] [address] Mar, [facility] [address] [place] [address] Jan, [facility] [address] [place] [address] Dec, [facility] [address] [place] [address] Nov, [facility] [address] [place] [address] October, [facility] [address] [place] [address] Aug, [facility] [address] [place] [address] Jul, [facility] [address] [place] [address] Jun, [facility] [address] [place] [address] Jun, [facility] [address] [place] [address] Jun, [facility] [address] [place] [address] May, [facility] [address] [place], [place] [address] Apr, [facility] [address] [place], [place] [address] Mar, [facility] [address] [place] [address] Mar, [facility] [address] [place] [address] Mar, IMMUNIZATIONS No Known Immunizations SOCIAL HISTORY Never Assessed REASON FOR VISIT 3 month ck , Tinnitus right ear, CPAP follow up PLAN OF CARE Activity Details Follow Up as scheduled Reason: Pending Test *MM Screening mammogram (bilateral) VITAL SIGNS Weight 203.2 lbs 2017-09-09 Heart Rate 64 /min 2017-09-09 Height 64 in 2017-09-09 Oximetry 96 % 2017-09-09 BMI 34.88 kg/m2 2017-09-09 Blood pressure systolic 112 mm Hg 2017-09-09 Blood pressure diastolic 70 mm Hg 2017-09-09 MEDICATIONS Medication Instructions Dosage Frequency Start Date End Date Duration Status Albuterol Sulfate (2.5 MG/3ML) 0.083% Inhalation every 4 hrs prn 3 ml Jun, Active Triamcinolone Acetonide 0.1 APPLY TO AFFECTED AREA(S) TWO TIMES A DAY 30 Active Metoprolol Tartrate 50 TAKE ONE TABLET BY MOUTH TWICE A DAY 30 Active Aspirin Adult Low Dose 81 MG Orally Once a day 1-2 tablet 24h Active Linzess 145 MCG PO QD 1 capsule 24h Active Celexa 40 MG Orally Once a day 0.5 tablet 24h Active Multivitamin Adult - Active Zantac 150 MG Orally BID 1 tablet 12h Jul, 15 days Active Nexium 40 TAKE ONE CAPSULE BY MOUTH DAILY 30 Active Claritin 10 TAKE ONE TABLET BY MOUTH DAILY 90 Active Meloxicam 15 MG Orally Once a day 1 tablet 24h 30 days Active Kaibeto 5-325 MG Orally every 6 hrs 1 tablet as needed 6h Jun, 10 days Active Alendronate Sodium 5 MG [...] BY MOUTH EVERY 12 HOURS 30 Active Trazodone HCl 100 MG Orally Once a day 1.5 tablet at bedtime 24h Active Ventolin HFA 90 INHALE ONE TO TWO PUFFS BY MOUTH EVERY 4 HOURS NEEDED FOR SHORTNESS OF BREATH FOR COUGH 16 Active RESULTS No Results PROCEDURES No Known [...]
--- OUTSIDE RECORDS SUMMARY | 2018-02-04 20:29 | XMS REPORT ---
Author Author Osmingill Sarinaandrew Bernal [facility] Address [address], [address] [place], [place] [id number] Care Team Providers Care Insurance Auditor Name Role Phone Sarina Turk Unavailable PROBLEMS Type Condition ICD9-CM Code [id number] Code Onset Dates Condition Status SNOMED Code Problem Angina pectoris I20.9 Active 943016508 Problem COPD (chronic obstructive pulmonary disease) with acute bronchitis J44.0 Active [id number] Problem Constipation K59.00 Active 59237008 Problem Gastritis without bleeding, unspecified chronicity, unspecified gastritis type K29.70 Active 4657761 Problem Chronic sinusitis, unspecified J32.9 Active 549576970 Problem Obstructive sleep apnea syndrome G47.33 Active 62794998 Problem Closed fracture of one rib of right side with routine healing, subsequent encounter S22.31XD Active 43054729 Problem Acute sinusitis, unspecified J01.90 Active 62991664 Problem Nocturnal hypoxia G47.34 Active 327009324 Problem Episode of recurrent major depressive disorder, unspecified depression episode severity F33.9 Active 018437513 Problem Postmenopausal Z78.0 Active 59417615 Problem COPD (chronic obstructive pulmonary disease) J44.9 Active 45848896 Problem Hyperlipidemia E78.5 Active 85208432 Problem Intellectual disability F79 Active 73785221 Problem Hypertension I10 Active 27806580 Problem COPD exacerbation J44.1 Active 803318890 ALLERGIES No Information ENCOUNTERS Encounter Location Date Diagnosis [facility] [address] [place], [place] [id number] Aug, [facility] [address], [address] [place], [place] [id number] Aug, [facility] [address] [place] [id number] Aug, [facility] [address] [place] [id number] Jul, [facility] [address] [place] [id number] Jul, [facility] [address] [place] [id number] Jul, [facility] [address] [place] [id number] Jul, Acute gastritis without hemorrhage, unspecified gastritis type K29.00 and Diarrhea, unspecified type R19.7 [facility] [address] [place], [place] [id number] Jul, [facility] [address] [place], [place] [id number] Jun, Acute lower respiratory infection J22 ; Other fatigue R53.83 and History of influenza Z87.09 [facility] [address] [place] [address] Jun, [facility] [address] [place] [id number] Jun, [facility] [address], [address] [place] [id number] Jun, Acute lower respiratory infection J22 ; Other fatigue R53.83 and History of influenza Z87.09 [facility] [address] [place] [id number] Jun, [facility] [address] [place] [id number] Jun, [facility] [address] [place] [id number] Jun, [facility] [address] [place] [id number] Jun, [facility] [address] [place] [address] Jun, [facility] [address] [place] [id number] Jun, Acute pain of left shoulder M25.512 [facility] [address] [place], [place] [id number] Jun, Acute pain of left shoulder M25.512 ; Gastritis without bleeding, unspecified chronicity, unspecified gastritis type K29.70 ; Hypertension I10 ; COPD (chronic obstructive pulmonary disease) J44.9 and Hyperlipidemia E78.5 [facility] [address] [place] [id number] Jun, [facility] [address] [place] [id number] Jun, [facility] [address] [place] [id number] May, [facility] [address], [address] [place] [id number] May, Acute pain of left shoulder M25.512 ; Intellectual disability F79 and Closed fracture of one rib of right side with routine healing, subsequent encounter S22.31XD [address], [address] [place], [place] [id number] May, [facility] [address], [address] [place] [id number] May, [facility] [address] [place] [id number] May, [facility] [address], [address] [place] [id number] May, Acute bronchitis, unspecified organism J20.9 ; Hypertension I10 ; COPD ( chronic obstructive pulmonary disease) J44.9 ; Hyperlipidemia E78.5 ; Nocturnal hypoxia G47.34 and Obstructive sleep apnea syndrome G47.[address], [address] [place], [place] [id number] Apr, Pain with urination R30.9 ; Hypertension I10 ; COPD (chronic obstructive pulmonary disease) J44.9 ; Hyperlipidemia E78.5 and Acute bronchitis, unspecified organism J20.[address], [address] [place] [id number] Apr, Hypertension I10 [facility] [address], [address] [place] [id number] Apr, Acute sinusitis, unspecified J01.[address], [address] [place] [id number] Apr, [address], [address] [place] [address] Mar, [address], [address] [place], [place] [id number] Mar, Other specified bacterial agents as the cause of diseases classified elsewhere B96.89 and Acute sinusitis, unspecified J01.[address], [address] [place], [place] [address] Mar, Closed fracture of one rib of right side with routine healing, subsequent encounter S22.31XD [address], [address] [place], [place] [id number] Mar, [address], [facility] [address] [place] [id number] Mar, COPD (chronic obstructive pulmonary disease) J44.9 ; Closed fracture of one rib of right side with routine healing, subsequent encounter S22.31XD ; Hypertension I10 ; Constipation K59.00 ; Angina pectoris I20.9 ; Depression, unspecified depression type F32.9 and Left ear pain H92.02 [facility] [address] [place] [id number] Mar, Elevated glucose R73.09 [facility] [address] [place] [id number] Mar, [facility] [address] [place] [id number] Mar, Left-sided chest wall pain R07.89 and Hypertension I10 [facility] [address] [place], [place] [id number] Feb, [facility] [address] [place] [id number] Feb, Hypertension I10 [facility] [address] [place] [id number] Feb, Closed fracture of one rib of right side, initial encounter S22.31XA ; Intellectual disability F79 ; COPD (chronic obstructive pulmonary disease) J44.9 ; Hyperlipidemia E78.5 and Hypertension I10 [facility] [address] [place], [place] [id number] Feb, [facility] [address] [place], [place] [id number] Feb, Dysuria R30.0 [facility] [address] [place], [place] [id number] Jan, Closed fracture of one rib of right side, initial encounter S22.31XA [facility] [address] [place], [place] [id number] Jan, [facility] [address] [place] [id number] Jan, [facility] [address] [place] [id number] Jan, Contusion of left side of back, initial encounter S20.222A [facility] [address] [place] [id number] Jan, [facility] [address] [place] [id number] Dec, [facility] [address] [place] [address] Dec, [facility] [address] [place] [id number] Dec, COPD (chronic obstructive pulmonary disease) J44.9 and Hypertension I10 [facility] [address] [place] [address] Dec, [facility] [address] [place] [address] Dec, [facility] [address] [place] [address] Dec, Skin irritation R23.8 [facility] [address] [place] [id number] Dec, [facility] [address] [place] [address] Dec, [facility] [address] [place] [id number] Dec, [facility] [address] [place] [id number] Dec, [facility] [address] [place] [id number] October, Dysuria R30.0 and Pain of left calf M79.662 [facility] [address] [place], [place] [id number] October, Pain of right great toe M79.674 and Overgrown toenails L60.2 [facility] [address] [place], [place] [address] Sep, [facility] [address] [place] [address] Sep, [facility] [address] [place] [id number] Sep, Pain with urination R30.9 ; Abdominal pain, unspecified location R10.9 and Loose stools R19.5 [facility] [address] [place] [address] Sep, Hypertension I10 [facility] [address] [place] [address] Sep, [facility] [address] [place], [place] [id number] Sep, Acute cystitis with hematuria N30.01 [facility] [address] [place], [place] [address] Sep, [facility] [address] [place] [address] Sep, Urinary frequency R35.0 [facility] [address] [place] [id number] Aug, [facility] [address] [place] [id number] Aug, Screening for breast cancer Z12.39 [facility] [address] [place] [id number] Aug, [facility] [address] [place] [id number] Aug, [facility] [address] [place] [address] Aug, [facility] [address] [place] [id number] Aug, [facility] [address] [place] [address] Aug, [facility] [address] [place] [id number] Aug, [facility] [address] [place] [address] Aug, [facility] [address] [place] [address] Aug, [facility] [address] [place] [id number] Jul, Dysuria R30.0 [facility] [address] [place], [place] [id number] Jul, Chest wall pain R07.89 and Myofascial pain M79.1 [facility] [address] [place] [address] Jul, [facility] [address] [place], [place] [id number] Jul, Depression, unspecified depression type F32.9 ; Chronic obstructive pulmonary disease, unspecified COPD type J44.9 ; Hypertension I10 ; Angina pectoris I20.9 and Costochondritis M94.0 [facility] [address] [place], [place] [id number] Jun, Acute non-recurrent maxillary sinusitis J01.00 [facility] [address] [place] [id number] Jun, [facility] [address] [place] [id number] Jun, [facility] [address] [place] [address] Jun, [facility] [address] [place] [id number] Jun, [facility] [address] [place] [address] Jun, [facility] [address] [place] [id number] Jun, Left-sided chest wall pain R07.89 and Cough due to bronchospasm J98.01 [facility] [address] [place] [id number] Jun, [facility] [address] [place] [id number] May, [facility] [address] [place] [id number] May, Left-sided chest wall pain R07.89 [facility] [address], [facility] [address] [place] [id number] May, Left-sided chest wall pain R07.89 and Cough due to bronchospasm J98.01 [facility] [address], [facility] [address] [place] [id number] May, [facility] [address], [facility] [address] [place] [id number] May, Encounter for Medicare annual wellness exam Z00.00 ; Advanced directives, counseling/discussion Z71.89 ; Screening for osteoporosis Z13.820 ; Bilateral hearing loss, unspecified hearing loss type H91.93 ; Intellectual disability F79 ; COPD (chronic obstructive pulmonary disease) J44.9 ; Postmenopausal Z78.0 ; Hypertension I10 ; Hyperlipidemia E78.5 ; Constipation K59.00 and Angina pectoris I20.[address] [place] [id number] May, [facility] [address], [facility] [address] [place] [id number] May, Left-sided chest wall pain R07.89 and Chest wall contusion, left, initial encounter S20.212A [address], [facility] [address] [place], [place] [id number] May, Dog bite, subsequent encounter W54.0XXD [address], [facility] [address] [place] [address] May, Open bite of right hand, initial encounter S61.451A and Bitten by dog, initial encounter W54.0XXA [facility] [address] [place] [address] May, [facility] [address], [address] [place] [id number] May, [address], [address] [place], [place] [id number] Apr, Chest congestion R09.89 ; COPD exacerbation J44.1 and Dermatitis L30.[address], [facility] [address] [place] [id number] Apr, Secondary infection of skin L08.89 and Keratotic lesion L57.[address], [facility] [address] [place] [id number] Mar, Hypertension I10 ; Bronchitis J40 and Cough R05 [facility] [address] [place], [place] [id number] Feb, [facility] [address], [address] [place] [id number] Feb, Skin tag L91.8 [facility] [address] [place], [place] [id number] Dec, Dysuria R30.0 and Vaginitis N76.0 [facility] [address] [place] [id number] Dec, Constipation K59.00 ; Hypertension I10 ; Bronchitis J40 ; Post-tussive emesis R11.10 and Cough R05 [facility] [address] [place] [id number] Dec, [facility] [address] [place] [address] Nov, Constipation K59.00 and Bronchitis J40 [facility] [address] [place] [id number] Nov, [facility] [address] [place] [id number] October, Dysuria R30.0 [facility] [address] [place] [id number] October, Urinary frequency R35.0 and UTI (urinary tract infection) N39.0 [facility] [address] [place] [id number] Sep, Intellectual disability F79 ; COPD (chronic obstructive pulmonary disease ) J44.9 ; Postmenopausal Z78.0 ; Hypertension I10 and Hyperlipidemia E78.5 [facility] [address] [place] [id number] Aug, Pain with urination R30.9 ; Wrist pain, left M25.532 and Pain in scapula M89.8X1 [facility] [address] [place] [id number] Jul, Pain with urination R30.9 and Vaginitis N76.0 [facility] [address] [place] [id number] Jul, Screening for breast cancer Z12.39 [facility] [address] [place] [id number] Jul, Acute upper respiratory infection, unspecified J06.9 and Other viral agents as the cause of diseases classified elsewhere B97.89 [facility] [address] [place] [id number] Jun, Cellulitis L03.90 [facility] [address] [place] [address] Jun, Gastritis 535.50 ; URI (upper respiratory infection) J06.9 and Ingrown toenail L60.0 [facility] [address] [place], [place] [id number] Apr, Gastritis 535.50 and Oral lesion K13.70 [facility] [address] [place], [place] [id number] Mar, Dysuria R30.0 and Pain of right scapula M89.8X1 [facility] [address] [place], [place] [id number] Mar, [facility] [address] [place] [id number] Mar, [facility] [address] [place] [id number] Feb, Right knee pain 719.46 [facility] [address] [place] [address] Feb, [facility] [address] [place] [id number] Feb, Right knee pain 719.46 [facility] [address] [place], [place] [id number] Jan, Allergic rhinitis 477.9 and Cough 786.2 [facility] [address] [place] [id number] Jan, [facility] [address] [place] [id number] Jan, Insect bites 919.4 [facility] [address] [place] [id number] Jan, Fatigue 780.79 ; Gastritis 535.50 and Wound abscess 879.9 [facility] [address] [place] [address] Dec, [facility] [address] [place] [address] Nov, Fatigue 780.79 ; Weakness generalized 780.79 and Gastritis 535.50 [facility] [address] [place] [address] Nov, [facility] [address] [place] [id number] October, [facility] [address] [place] [address] October, [facility] [address] [place] [id number] October, [facility] [address] [place] [id number] October, [facility] [address] [place] [address] Sep, [facility] [address] [place] [address] Sep, [facility] [address] [place] [id number] Sep, [facility] [address] [place] [id number] Aug, [facility] [address] [place] [address] Aug, [facility] [address] [place] [id number] Jul, [facility] [address] [place] [address] Jul, [facility] [address] [place] [id number] May, [facility] [address] [place] [address] May, [facility] [address] [place] [id number] Apr, [facility] [address] [place] [address] Mar, [facility] [address] [place] [id number] Mar, [facility] [address] [place] [id number] Feb, [facility] [address] [place] [address] Jan, [facility] [address] [place] [id number] Jan, [facility] [address] [place] [id number] Nov, [facility] [address] [place] [id number] October, [facility] [address] [place] [id number] October, [facility] [address] [place] [address] Sep, [facility] [address] [place] [id number] Aug, [facility] [address] [place] [address] Jul, [facility] [address] [place] [id number] Jun, [facility] [address] [place] [id number] May, [facility] [address] [place] [address] Mar, [facility] [address] [place] [id number] Mar, [facility] [address] [place] [id number] Jan, [facility] [address] [place] [address] Dec, [facility] [address] [place] [id number] Nov, [facility] [address] [place] [id number] October, [facility] [address] [place] [id number] Aug, [facility] [address] [place] [address] Jul, [facility] [address] [place] [address] Jun, [facility] [address] [place] [address] Jun, [facility] [address] [place] [address] Jun, [facility] [address] [place] [id number] May, [facility] [address] [place] [id number] Apr, [facility] [address] [place] [id number] Mar, [facility] [address] [place] [address] Mar, [facility] [address] [place], [place] [id number] Mar, IMMUNIZATIONS No Known Immunizations SOCIAL HISTORY Never Assessed REASON FOR VISIT [facility] asthma/COPD PLAN OF CARE VITAL SIGNS MEDICATIONS Unknown [...]
--- OUTSIDE RECORDS SUMMARY | 2018-02-04 20:30 | XMS REPORT ---
Author Author Rosalee Sarinaandrew Bernal [facility] Address [address], [address] [place], [place] [id number] Care Team Providers Care Sizer Machine Name Role Phone Sarina Turk Unavailable PROBLEMS Type Condition ICD9-CM Code [id number] Code Onset Dates Condition Status SNOMED Code Problem Angina pectoris I20.9 Active 232359463 Problem COPD (chronic obstructive pulmonary disease) with acute bronchitis J44.0 Active [id number] Problem Constipation K59.00 Active 48903857 Problem Gastritis without bleeding, unspecified chronicity, unspecified gastritis type K29.70 Active 1349772 Problem Chronic sinusitis, unspecified J32.9 Active 807982695 Problem Obstructive sleep apnea syndrome G47.33 Active 89306726 Problem Closed fracture of one rib of right side with routine healing, subsequent encounter S22.31XD Active 95525449 Problem Acute sinusitis, unspecified J01.90 Active 11230755 Problem Nocturnal hypoxia G47.34 Active 342013948 Problem Episode of recurrent major depressive disorder, unspecified depression episode severity F33.9 Active 641449684 Problem Postmenopausal Z78.0 Active 46981813 Problem COPD (chronic obstructive pulmonary disease) J44.9 Active 17844390 Problem Hyperlipidemia E78.5 Active 68469624 Problem Intellectual disability F79 Active 14251771 Problem Hypertension I10 Active 90833552 Problem COPD exacerbation J44.1 Active 484069979 ALLERGIES Substance Reaction Event Type Date Status PCN Unknown Drug Allergy Jul, Active Zithromax Unknown Drug Allergy Jul, Active ENCOUNTERS Encounter Location Date Diagnosis [facility] [address] [place] [id number] Aug, [facility] [address] [place] [id number] Aug, [facility] [address] [place] [address] Aug, [facility] [address] [place] [id number] Jul, [facility] [address] [place] [id number] Jul, [facility] [address] [place] [id number] Jul, [facility] [address] [place] [address] Jul, Acute gastritis without hemorrhage, unspecified gastritis type K29.00 ; Diarrhea, unspecified type R19.7 ; Hypertension I10 ; COPD (chronic obstructive pulmonary disease) J44.9 and Hyperlipidemia E78.5 [facility] [address] [place] [id number] Jul, [facility] [address] [place] [address] Jun, Acute lower respiratory infection J22 ; Other fatigue R53.83 and History of influenza Z87.09 [facility] [address] [place] [address] Jun, [facility] [address] [place] [address] Jun, [facility] [address] [place] [address] Jun, Acute lower respiratory infection J22 ; Other fatigue R53.83 and History of influenza Z87.09 [facility] [address] [place] [id number] Jun, [facility] [address] [place] [address] Jun, [facility] [address] [place] [id number] Jun, [facility] [address] [place] [id number] Jun, [facility] [address] [place] [id number] Jun, [facility] [address] [place] [id number] Jun, Acute pain of left shoulder M25.512 [facility] [address] [place] [address] Jun, Acute pain of left shoulder M25.512 ; Gastritis without bleeding, unspecified chronicity, unspecified gastritis type K29.70 ; Hypertension I10 ; COPD (chronic obstructive pulmonary disease) J44.9 and Hyperlipidemia E78.5 [facility] [address] [place] [address] Jun, [facility] [address] [place] [id number] Jun, [facility] [address] [place] [id number] May, [facility] [address] [place] [address] May, Acute pain of left shoulder M25.512 ; Intellectual disability F79 and Closed fracture of one rib of right side with routine healing, subsequent encounter S22.31XD [facility] [address] [place] [address] May, [facility] [address] [place] [address] May, [facility] [address] [place] [id number] May, [facility] [address] [place] [address] May, Acute bronchitis, unspecified organism J20.9 ; Hypertension I10 ; COPD ( chronic obstructive pulmonary disease) J44.9 ; Hyperlipidemia E78.5 ; Nocturnal hypoxia G47.34 and Obstructive sleep apnea syndrome G47.33 [facility] [address] [place] [id number] Apr, Pain with urination R30.9 ; Hypertension I10 ; COPD (chronic obstructive pulmonary disease) J44.9 ; Hyperlipidemia E78.5 and Acute bronchitis, unspecified organism J20.9 [facility] [address] [place] [id number] Apr, Hypertension I10 [facility] [address] [place] [id number] Apr, Acute sinusitis, unspecified J01.90 [facility] [address] [place] [address] Apr, [facility] [address] [place] [address] Mar, [facility] [address] [place] [id number] Mar, Other specified bacterial agents as the cause of diseases classified elsewhere B96.89 and Acute sinusitis, unspecified J01.90 [facility] [address] [place] [address] Mar, Closed fracture of one rib of right side with routine healing, subsequent encounter S22.31XD [facility] [address] [place] [address] Mar, [facility] [address] [place] [id number] 12 Oct, 2017 COPD (chronic obstructive pulmonary disease) J44.9 ; Closed fracture of one rib of right side with routine healing, subsequent encounter S22.31XD ; Hypertension I10 ; Constipation K59.00 ; Angina pectoris I20.9 ; Depression, unspecified depression type F32.9 and Left ear pain H92.02 [facility] [address] [place] [address] Mar, Elevated glucose R73.09 [facility] [address] [place] [address] Mar, [facility] [address] [place] [address] Mar, Left-sided chest wall pain R07.89 and Hypertension I10 [facility] [address] [place] [address] Feb, [facility] [address] [place] [id number] Feb, Hypertension I10 [facility] [address] [place] [id number] Feb, Closed fracture of one rib of right side, initial encounter S22.31XA ; Intellectual disability F79 ; COPD (chronic obstructive pulmonary disease) J44.9 ; Hyperlipidemia E78.5 and Hypertension I10 [facility] [address] [place] [id number] Feb, [facility] [address] [place] [address] Feb, Dysuria R30.0 [facility] [address] [place] [address] Jan, Closed fracture of one rib of right side, initial encounter S22.31XA [facility] [address] [place] [id number] Jan, [facility] [address] [place] [id number] Jan, [facility] [address] [place] [id number] Jan, Contusion of left side of back, initial encounter S20.222A [facility] [address] [place] [id number] Jan, [facility] [address] [place] [address] Dec, [facility] [address] [place] [id number] Dec, [facility] [address] [place] [address] Dec, COPD (chronic obstructive pulmonary disease) J44.9 and Hypertension I10 [facility] [address] [place] [address] Dec, [facility] [address] [place] [address] Dec, [facility] [address] [place] [address] Dec, Skin irritation R23.8 [facility] [address] [place] [address] Dec, [facility] [address] [place] [id number] Dec, [facility] [address] [place] [address] Dec, [facility] [address] [place] [address] Dec, [facility] [address] [place] [id number] October, Dysuria R30.0 and Pain of left calf M79.662 [facility] [address] [place] [address] October, Pain of right great toe M79.674 and Overgrown toenails L60.2 [facility] [address] [place] [address] Sep, [facility] [address] [place] [address] Sep, [facility] [address] [place] [address] Sep, Pain with urination R30.9 ; Abdominal pain, unspecified location R10.9 and Loose stools R19.5 [facility] [address] [place] [address] Sep, Hypertension I10 [facility] [address] [place] [address] Sep, [facility] [address] [place] [address] Sep, Acute cystitis with hematuria N30.01 [facility] [address] [place] [address] Sep, [facility] [address] [place] [address] Sep, Urinary frequency R35.0 [facility] [address] [place] [address] Aug, [facility] [address] [place] [address] Aug, Screening for breast cancer Z12.39 [facility] [address] [place] [address] Aug, [facility] [address] [place] [address] Aug, [facility] [address] [place] [id number] Aug, [facility] [address] [place] [address] Aug, [facility] [address] [place] [id number] Aug, [facility] [address] [place] [id number] Aug, [facility] [address] [place] [id number] Aug, [facility] [address] [place] [address] Aug, [facility] [address] [place] [address] Jul, Dysuria R30.0 [facility] [address] [place] [address] Jul, Chest wall pain R07.89 and Myofascial pain M79.1 [facility] [address] [place] [address] Jul, [facility] [address] [place] [address] Jul, Depression, unspecified depression type F32.9 ; Chronic obstructive pulmonary disease, unspecified COPD type J44.9 ; Hypertension I10 ; Angina pectoris I20.9 and Costochondritis M94.0 [facility] [address] [place] [address] Jun, Acute non-recurrent maxillary sinusitis J01.00 [facility] [address] [place] [address] Jun, [facility] [address] [place] [address] Jun, [facility] [address] [place] [address] Jun, [facility] [address] [place] [id number] Jun, [facility] [address] [place] [address] Jun, [facility] [address] [place] [address] Jun, Left-sided chest wall pain R07.89 and Cough due to bronchospasm J98.01 [facility] [address] [place] [id number] Jun, [facility] [address] [place] [id number] May, [facility] [address] [place] [id number] May, Left-sided chest wall pain R07.89 [facility] [address] [place] [id number] May, Left-sided chest wall pain R07.89 and Cough due to bronchospasm J98.01 [facility] [address] [place] [address] May, [facility] [address] [place] [address] May, Encounter for Medicare annual wellness exam Z00.00 ; Advanced directives, counseling/discussion Z71.89 ; Screening for osteoporosis Z13.820 ; Bilateral hearing loss, unspecified hearing loss type H91.93 ; Intellectual disability F79 ; COPD (chronic obstructive pulmonary disease) J44.9 ; Postmenopausal Z78.0 ; Hypertension I10 ; Hyperlipidemia E78.5 ; Constipation K59.00 and Angina pectoris I20.9 [facility] [address] [place] [address] May, [facility] [address] [place] [address] May, Left-sided chest wall pain R07.89 and Chest wall contusion, left, initial encounter S20.212A [facility] [address] [place] [address] May, Dog bite, subsequent encounter W54.0XXD [facility] [address] [place] [address] May, Open bite of right hand, initial encounter S61.451A and Bitten by dog, initial encounter W54.0XXA [facility] [address] [place] [address] May, [facility] [address] [place] [id number] May, [facility] [address] [place] [address] Apr, Chest congestion R09.89 ; COPD exacerbation J44.1 and Dermatitis L30.[address], [address] [place] [address] Apr, Secondary infection of skin L08.89 and Keratotic lesion L57.0 [facility] [address] [place] [address] Mar, Hypertension I10 ; Bronchitis J40 and Cough R05 [facility] [address] [place] [address] Feb, [facility] [address] [place] [address] Feb, Skin tag L91.8 [facility] [address] [place] [address] Dec, Dysuria R30.0 and Vaginitis N76.0 [facility] [address] [place] [address] Dec, Constipation K59.00 ; Hypertension I10 ; Bronchitis J40 ; Post-tussive emesis R11.10 and Cough R05 [facility] [address] [place] [id number] Dec, [facility] [address] [place] [address] Nov, Constipation K59.00 and Bronchitis J40 [facility] [address] [place] [address] Nov, [facility] [address], [address] [place] [id number] October, Dysuria R30.[address], [address] [place] [address] October, Urinary frequency R35.0 and UTI (urinary tract infection) N39.0 [facility] [address] [place] [address] Sep, Intellectual disability F79 ; COPD (chronic obstructive pulmonary disease ) J44.9 ; Postmenopausal Z78.0 ; Hypertension I10 and Hyperlipidemia E78.5 [facility] [address] [place] [address] Aug, Pain with urination R30.9 ; Wrist pain, left M25.532 and Pain in scapula M89.8X1 [facility] [address] [place] [id number] Jul, Pain with urination R30.9 and Vaginitis N76.0 [facility] [address] [place] [id number] Jul, Screening for breast cancer Z12.[address], [address] [place] [id number] 10 Jul, 2015 Acute upper respiratory infection, unspecified J06.9 and Other viral agents as the cause of diseases classified elsewhere B97.[address], [address] [place] [address] Jun, Cellulitis L03.[address] [place] [address] Jun, Gastritis 535.50 ; URI (upper respiratory infection) J06.9 and Ingrown toenail L60.[address], [address] [place] [address] Apr, Gastritis 535.50 and Oral lesion K13.[address] [place] [address] Mar, Dysuria R30.0 and Pain of right scapula M89.8X1 [address], [address] [place] [address] Mar, [address] [id number] Mar, [address], [address] [id number] Feb, Right knee pain 719.[address], [facility] [address] [place] [address] Feb, [address] [id number] Feb, Right knee pain 719.[address], [facility] [address] [place] [address] Jan, Allergic rhinitis 477.9 and Cough 786.[address], [facility] [address] [place] [address] Jan, [address], [facility] [address] [place] [address] Jan, Insect bites 919.[address], [address] [place] [address] Jan, Fatigue 780.79 ; Gastritis 535.50 and Wound abscess 879.[address], [facility] [address] [place] [address] Dec, [address], [address] [place] [address] Nov, Fatigue 780.79 ; Weakness generalized 780.79 and Gastritis 535.[address], [facility] [address] [place] [address] Nov, [facility] [address] [place] [address] October, [facility] [address] [place] [address] October, [facility] [address] [place] [address] October, [facility] [address] [place] [address] October, [facility] [address] [place] [address] Sep, [facility] [address] [place] [address] Sep, [facility] [address] [place] [address] Sep, [facility] [address] [place] [id number] Aug, [facility] [address] [place] [id number] Aug, [facility] [address] [place] [address] Jul, [facility] [address] [place] [address] Jul, [facility] [address] [place], [place] [address] May, [facility] [address] [place] [address] May, [facility] [address] [place], [place] [address] Apr, [facility] [address] [place], [place] [address] Mar, [facility] [address] [place], [place] [address] Mar, [facility] [address] [place] [address] Feb, [facility] [address] [place] [address] Jan, [facility] [address] [place] [address] Jan, [facility] [address] [place] [address] Nov, [facility] [address] [place] [address] October, [facility] [address] [place] [address] October, [facility] [address] [place] [address] Sep, [facility] [address] [place] [address] Aug, [facility] [address] [place] [address] Jul, [facility] [address] [place] [address] Jun, [facility] [address] [place] [address] May, [facility] [address] [place] [address] Mar, [facility] [address] [place] [address] Mar, [facility] [address] [place] [address] Jan, [facility] [address] [place] [address] Dec, [facility] [address] [place] [address] Nov, [facility] [address] [place], [place] [address] October, [facility] [address] [place] [address] Aug, [facility] [address] [place] [address] Jul, [facility] [address] [place] [address] Jun, [facility] [address] [place] [address] Jun, [facility] [address] [place] [address] Jun, [facility] [address] [place] [id number] May, [facility] [address] [place] [address] Apr, [facility] [address] [place] [address] Mar, [facility] [address], [address] [place] [address] Mar, [facility] [address] [place] [address] Mar, IMMUNIZATIONS No Known Immunizations SOCIAL HISTORY Never Assessed REASON FOR VISIT stomach cramps after eating and now diarrhea started this a.m. PLAN OF CARE Activity Details Follow Up Next Saturday; recheck stomach Reason: VITAL SIGNS Weight 198 lbs 2017-08-09 Heart Rate 71 /min 2017-08-09 Temperature 97.3 degrees Fahrenheit 2017-08-09 Height 64 in 2017-08-09 Oximetry 97 % 2017-08-09 BMI 33.98 kg/m2 2017-08-09 Blood pressure systolic 98 mm Hg 2017-08-09 Blood pressure diastolic 70 mm Hg 2017-08-09 MEDICATIONS Medication Instructions Dosage Frequency Start Date End Date Duration Status Albuterol Sulfate (2.5 MG/3ML) 0.083% Inhalation every 4 hrs prn 3 ml Jun, Active [place] 5-325 MG Orally every 6 hrs 1 tablet as needed 6h Jun, 10 days Active Nitrostat 0.4 MG Sublingual prn as directed Jan, Active Ventolin HFA 108 (90 Base) MCG/ACT Inhalation every 4 hrs 2 puffs as needed 4h Active Lisinopril-Hydrochlorothiazide 20-12.5 Orally bid 2 tablet 12h 30 days Active Trazodone HCl 100 MG Orally Once a day 1.5 tablet at bedtime 24h Active Meloxicam 15 MG Orally Once a day 1 tablet 24h 30 days Active Symbicort 160-4.5 INHALE TWO PUFFS BY MOUTH EVERY 12 HOURS 30 Active Claritin 10 TAKE ONE TABLET BY MOUTH DAILY 90 Active Aspirin Adult Low Dose 81 MG Orally Once a day 1-2 tablet 24h Active Celexa 40 MG Orally Once [...] DAY 30 Active Multivitamin Adult - Active Zantac 150 MG Orally BID 1 tablet at bedtime 12h Jul, 15 days Active RESULTS No [...]
--- OUTSIDE RECORDS SUMMARY | 2018-02-04 20:30 | XMS REPORT ---
Author Author Sarina Turk [facility] Address [address], [address] [place], [place] [id number] Care Team Providers Care Industrial Hygiene Technician Name Role Phone Sarina Turk Unavailable PROBLEMS Type Condition ICD9-CM Code [id number] Code Onset Dates Condition Status SNOMED Code Problem Constipation K59.00 Active 21713562 Problem Depression, unspecified depression type F32.9 Active 05693098 Problem COPD (chronic obstructive pulmonary disease) with acute bronchitis J44.0 Active 879630231628756 Problem Gastritis without bleeding, unspecified chronicity, unspecified gastritis type K29.70 Active 4010286 Problem Chronic sinusitis, unspecified J32.9 Active 697074354 Problem Obstructive sleep apnea syndrome G47.33 Active 49676444 Problem Closed fracture of one rib of right side with routine healing, subsequent encounter S22.31XD Active 45282553 Problem Acute sinusitis, unspecified J01.90 Active 17329264 Problem Nocturnal hypoxia G47.34 Active 953664728 Problem Hyperlipidemia E78.5 Active 65342201 Problem COPD (chronic obstructive pulmonary disease) J44.9 Active 05471672 Problem Intellectual disability F79 Active 75270618 Problem Hypertension I10 Active 60096505 Problem COPD exacerbation J44.1 Active 388719175 Problem Postmenopausal Z78.0 Active 93230806 Problem Angina pectoris I20.9 Active 156518498 ALLERGIES No Information SOCIAL HISTORY Never Assessed PLAN OF CARE VITAL SIGNS MEDICATIONS Medication Instructions Dosage Frequency Start Date End Date Duration Status Meloxicam 15 MG Orally Once a day [...]
--- OUTSIDE RECORDS SUMMARY | 2018-02-04 20:31 | XMS REPORT ---
Author Author MERNA FILICarol Ann Bernal [facility] Address Unknown Phone Unavailable Care Team Providers Care Dental Tech Name Role Phone Dr. CISCO FRANKLIN PCP Unavailable Allergies Allergy Description Allergy Type No Known Drug Allergies Propensity to adverse reactions Procedures Procedure Type Procedure Description Date Physicians No codified procedures found for this patient. Results URINALYSIS Observation Test Name Observation Test Result Observation Test Units Observation Test Date Observation Test Time Color YELLOW 2012 11:50 Character CLEAR 08/21 11:50 Glucose NEGATIVE 11:50 Bilirubin NEGATIVE 11:50 Ketones NEGATIVE 11:50 Sp [place] 1.025 11:50 Ph 6.0 08/21/2012 11:50 Protein NEGATIVE 11:50 Urobilinogen 0.2 11:50 Nitrite NEGATIVE 11:50 Blood NEGATIVE 2012 11:50 Leukocytes TRACEH 11:50 Microscopic See Below 08/21/2012 11:50 Urine Volume 12 ml 11:50 Specimen Type SPUN 11:50 Bacteria RARE (0-10) 08/21/2012 11:50 WBC/ 0-2 08/21/2012 11:50 Squa Epi Cell 0-2 11:50 Culture Not indicat 08/21/2012 11:50 History of Immunizations Immunization Date no immunization entries Plan of Care Item Text No plan of care items. Procedure Date/Time/Initials Critical? Status No plan of care procedures. Medication List Medication Dose Units Frequency Start Date/Time Status none Problem List Problem Entered Date Resolved Date No known problems
--- OUTSIDE RECORDS SUMMARY | 2018-02-04 20:31 | XMS REPORT ---
Author Author Rogelio Prado Organization [facility] Address [address], [address] [place], [place] [id number] Care Team Providers Care Online Producer Name Role Phone [place], Rogelio Unavailable PROBLEMS Type Condition ICD9-CM Code WSC04-GS Code Onset Dates Condition Status SNOMED Code Problem Angina pectoris I20.9 Active 931008598 Problem COPD (chronic obstructive pulmonary disease) with acute bronchitis J44.0 Active 931905626840764 Problem Constipation K59.00 Active 09008358 Problem Gastritis without bleeding, unspecified chronicity, unspecified gastritis type K29.70 Active 1034017 Problem Chronic sinusitis, unspecified J32.9 Active 100067133 Problem Obstructive sleep apnea syndrome G47.33 Active 51425625 Problem Closed fracture of one rib of right side with routine healing, subsequent encounter S22.31XD Active 19456936 Problem Acute sinusitis, unspecified J01.90 Active 94483648 Problem Nocturnal hypoxia G47.34 Active 231418524 Problem Episode of recurrent major depressive disorder, unspecified depression episode severity F33.9 Active 126903465 Problem Postmenopausal Z78.0 Active 82626660 Problem COPD (chronic obstructive pulmonary disease) J44.9 Active 75437398 Problem Hyperlipidemia E78.5 Active 68562684 Problem Intellectual disability F79 Active 87941846 Problem Hypertension I10 Active 01113965 Problem COPD exacerbation J44.1 Active [id number] ALLERGIES No Information ENCOUNTERS Encounter Location Date Diagnosis [facility] [address] [place], [place] [id number] Aug, [facility] [address], [address] [place] [id number] Aug, [facility] [address] [place] [id number] Aug, [facility] [address] [place] [id number] Jul, [facility] [address] [place] [id number] Jul, [facility] [address] [place] [id number] Jul, [facility] [address] [place] [id number] Jul, Right sided abdominal pain R10.9 ; Hypertension I10 ; COPD (chronic obstructive pulmonary disease) J44.9 and Hyperlipidemia E78.5 [facility] [address], [address] [place] [id number] Jul, [facility] [address] [place] [id number] Jul, [facility] [address] [place] [id number] Jul, Acute gastritis without hemorrhage, unspecified gastritis type K29.00 ; Diarrhea, unspecified type R19.7 ; Hypertension I10 ; COPD (chronic obstructive pulmonary disease) J44.9 and Hyperlipidemia E78.5 [facility] [address] [place] [id number] Jul, [facility] [address] [place] [id number] Jun, Acute lower respiratory infection J22 ; Other fatigue R53.83 and History of influenza Z87.09 [facility] [address] [place] [id number] Jun, [facility] [address] [place] [id number] Jun, [facility] [address] [place] [id number] Jun, Acute lower respiratory infection J22 ; Other fatigue R53.83 and History of influenza Z87.09 [facility] [address] [place] [id number] Jun, [facility] [address] [place] [id number] Jun, [facility] [address] [place] [id number] Jun, [facility] [address] [place] [id number] Jun, [facility] [address] [place] [id number] Jun, [facility] [address] [place] [id number] Jun, Acute pain of left shoulder M25.512 [facility] [address] [place] [id number] Jun, Acute pain of left shoulder M25.512 ; Gastritis without bleeding, unspecified chronicity, unspecified gastritis type K29.70 ; Hypertension I10 ; COPD (chronic obstructive pulmonary disease) J44.9 and Hyperlipidemia E78.5 [facility] [address] [place] [id number] Jun, [facility] [address] [place] [id number] Jun, [facility] [address] [place] [id number] May, [facility] [address] [place] [id number] May, Acute pain of left shoulder M25.512 ; Intellectual disability F79 and Closed fracture of one rib of right side with routine healing, subsequent encounter S22.31XD [facility] [address] [place] [id number] May, [facility] [address] [place] [id number] May, [facility] [address] [place] [id number] May, [facility] [address] [place] [id number] May, Acute bronchitis, unspecified organism J20.9 ; Hypertension I10 ; COPD ( chronic obstructive pulmonary disease) J44.9 ; Hyperlipidemia E78.5 ; Nocturnal hypoxia G47.34 and Obstructive sleep apnea syndrome G47.33 [facility] [address] [place] [id number] Apr, Pain with urination R30.9 ; Hypertension I10 ; COPD (chronic obstructive pulmonary disease) J44.9 ; Hyperlipidemia E78.5 and Acute bronchitis, unspecified organism J20.9 [facility] [address] [place] [id number] Apr, Hypertension I10 [facility] [address] [place] [id number] Apr, Acute sinusitis, unspecified J01.90 [facility] [address] [place] [id number] Apr, [facility] [address] [place] [id number] Mar, [facility] [address] [place] [id number] Mar, Other specified bacterial agents as the cause of diseases classified elsewhere B96.89 and Acute sinusitis, unspecified J01.90 [facility] [address] [place] [id number] Mar, Closed fracture of one rib of right side with routine healing, subsequent encounter S22.31XD [facility] [address] [place] [id number] Mar, [facility] [address] [place] [id number] Mar, COPD (chronic obstructive pulmonary disease) J44.9 ; Closed fracture of one rib of right side with routine healing, subsequent encounter S22.31XD ; Hypertension I10 ; Constipation K59.00 ; Angina pectoris I20.9 ; Depression, unspecified depression type F32.9 and Left ear pain H92.02 [facility] [address] [place] [id number] Mar, Elevated glucose R73.09 [facility] [address] [place] [id number] Mar, [facility] [address] [place] [id number] Mar, Left-sided chest wall pain R07.89 and Hypertension I10 [facility] [address] [place] [id number] Feb, [facility] [address] [place] [id number] Feb, Hypertension I10 [facility] [address] [place] [id number] Feb, Closed fracture of one rib of right side, initial encounter S22.31XA ; Intellectual disability F79 ; COPD (chronic obstructive pulmonary disease) J44.9 ; Hyperlipidemia E78.5 and Hypertension I10 [facility] [address] [place] [id number] Feb, [facility] [address] [place] [id number] Feb, Dysuria R30.0 [facility] [address] [place] [id number] Jan, Closed fracture of one rib of right side, initial encounter S22.31XA [facility] [address] [place] [id number] Jan, [facility] [address] [place] [id number] Jan, [facility] [address] [place], [place] [id number] Jan, Contusion of left side of back, initial encounter S20.222A [facility] [address] [place] [id number] Jan, [facility] [address] [place] [id number] Dec, [facility] [address] [place] [id number] Dec, [facility] [address] [place] [id number] Dec, COPD (chronic obstructive pulmonary disease) J44.9 and Hypertension I10 [facility] [address] [place] [id number] Dec, [facility] [address] [place] [id number] Dec, [facility] [address] [place] [id number] Dec, Skin irritation R23.8 [facility] [address] [place] [address] Dec, [facility] [address] [place] [id number] Dec, [facility] [address] [place] [id number] Dec, [facility] [address] [place] [id number] Dec, [facility] [address] [place] [id number] October, Dysuria R30.0 and Pain of left calf M79.662 [facility] [address] [place], [place] [id number] October, Pain of right great toe M79.674 and Overgrown toenails L60.2 [facility] [address] [place] [id number] Sep, [facility] [address] [place] [address] Sep, [facility] [address] [place] [id number] Sep, Pain with urination R30.9 ; Abdominal pain, unspecified location R10.9 and Loose stools R19.5 [facility] [address] [place] [id number] Sep, Hypertension I10 [facility] [address] [place] [id number] Sep, [facility] [address] [place] [id number] Sep, Acute cystitis with hematuria N30.01 [facility] [address] [place] [id number] Sep, [facility] [address] [place] [id number] Sep, Urinary frequency R35.0 [facility] [address] [place] [id number] Aug, [facility] [address] [place] [id number] Aug, Screening for breast cancer Z12.39 [facility] [address] [place], [place] [id number] Aug, [facility] [address] [place] [id number] Aug, [facility] [address] [place] [id number] Aug, [facility] [address] [place] [id number] Aug, [facility] [address] [place] [id number] Aug, [facility] [address] [place] [id number] Aug, [facility] [address] [place] [id number] Aug, [facility] [address] [place] [id number] Aug, [facility] [address] [place] [address] Jul, Dysuria R30.0 [facility] [address] [place] [id number] Jul, Chest wall pain R07.89 and Myofascial pain M79.1 [facility] [address] [place] [id number] Jul, [facility] [address] [place] [id number] Jul, Depression, unspecified depression type F32.9 ; Chronic obstructive pulmonary disease, unspecified COPD type J44.9 ; Hypertension I10 ; Angina pectoris I20.9 and Costochondritis M94.0 [facility] [address] [place] [id number] Jun, Acute non-recurrent maxillary sinusitis J01.00 [facility] [address] [place], [place] [id number] Jun, [facility] [address] [place] [id number] Jun, [facility] [address] [place] [id number] Jun, [facility] [address] [place] [id number] Jun, [facility] [address] [place] [id number] Jun, [facility] [address] [place] [address] Jun, Left-sided chest wall pain R07.89 and Cough due to bronchospasm J98.01 [facility] [address] [place] [id number] Jun, [facility] [address] [place] [id number] May, [facility] [address] [place] [id number] May, Left-sided chest wall pain R07.89 [facility] [address] [place], [place] [id number] May, Left-sided chest wall pain R07.89 and Cough due to bronchospasm J98.01 [facility] [address] [place], [place] [id number] May, [facility] [address] [place], [place] [id number] May, Encounter for Medicare annual wellness exam Z00.00 ; Advanced directives, counseling/discussion Z71.89 ; Screening for osteoporosis Z13.820 ; Bilateral hearing loss, unspecified hearing loss type H91.93 ; Intellectual disability F79 ; COPD (chronic obstructive pulmonary disease) J44.9 ; Postmenopausal Z78.0 ; Hypertension I10 ; Hyperlipidemia E78.5 ; Constipation K59.00 and Angina pectoris I20.9 [facility] [address] [place] [id number] May, [facility] [address] [place] [id number] May, Left-sided chest wall pain R07.89 and Chest wall contusion, left, initial encounter S20.212A [facility] [address] [place] [id number] May, Dog bite, subsequent encounter W54.0XXD [address], [address] [place], [place] [id number] May, Open bite of right hand, initial encounter S61.451A and Bitten by dog, initial encounter W54.0XXA [address], [address] [place], [place] [id number] May, [address] [place] [id number] May, [facility] [address] [place] [id number] Apr, Chest congestion R09.89 ; COPD exacerbation J44.1 and Dermatitis L30.9 [facility] [address] [place], [place] [id number] Apr, Secondary infection of skin L08.89 and Keratotic lesion L57.0 [facility] [address] [place] [id number] Mar, Hypertension I10 ; Bronchitis J40 and Cough R05 [facility] [address] [place], [place] [id number] Feb, [facility] [address] [place] [address] Feb, Skin tag L91.8 [facility] [address] [place] [id number] Dec, Dysuria R30.0 and Vaginitis N76.0 [facility] [address] [place], [place] [id number] Dec, Constipation K59.00 ; Hypertension I10 ; Bronchitis J40 ; Post-tussive emesis R11.10 and Cough R05 [facility] [address] [place] [id number] Dec, [facility] [address] [place] [id number] Nov, Constipation K59.00 and Bronchitis J40 [facility] [address] [place] [id number] Nov, [facility] [address] [place] [id number] October, Dysuria R30.0 [facility] [address] [place] [id number] October, Urinary frequency R35.0 and UTI (urinary tract infection) N39.0 [facility] [address] [place] [id number] Sep, Intellectual disability F79 ; COPD (chronic obstructive pulmonary disease ) J44.9 ; Postmenopausal Z78.0 ; Hypertension I10 and Hyperlipidemia E78.5 [facility] [address] [place], [place] [id number] Aug, Pain with urination R30.9 ; Wrist pain, left M25.532 and Pain in scapula M89.8X1 [place] [address] [place], [place] [id number] Jul, Pain with urination R30.9 and Vaginitis N76.0 [facility] [address] [place], [place] [id number] Jul, Screening for breast cancer Z12.[address] [place], [place] [id number] Jul, 2015 Acute upper respiratory infection, unspecified J06.9 and Other viral agents as the cause of diseases classified elsewhere B97.89 [facility] [address], [address] [place], [place] [id number] Jun, Cellulitis L03.[address] [place] [address] Jun, Gastritis 535.50 ; URI (upper respiratory infection) J06.9 and Ingrown toenail L60.[address] [place] [id number] Apr, Gastritis 535.50 and Oral lesion K13.[address] [place], [place] [id number] Mar, Dysuria R30.0 and Pain of right scapula M89.8X1 [address] [place], [place] [id number] Mar, [address] [place] [address] Mar, [address] [place] [id number] Feb, Right knee pain 719.[address] [place], [place] [id number] Feb, [facility] [address] [place], [place] [id number] Feb, Right knee pain 719.[address] [place], [place] [id number] Jan, Allergic rhinitis 477.9 and Cough 786.[address] [place], [place] [id number] Jan, [facility] [address] [place], [place] [id number] Jan, Insect bites 919.[address] [place] [id number] Jan, Fatigue 780.79 ; Gastritis 535.50 and Wound abscess 879.[address] [place], [place] [address] Dec, [facility] [address] [place], [place] [id number] Nov, Fatigue 780.79 ; Weakness generalized 780.79 and Gastritis 535.50 [facility] [address] [place] [id number] Nov, [facility] [address] [place], [place] [id number] October, [facility] [address] [place] [id number] October, [facility] [address] [place] [address] October, [facility] [address] [place] [id number] October, [facility] [address] [place] [id number] Sep, [facility] [address] [place], [place] [address] Sep, [facility] [address] [place], [place] [id number] Sep, [facility] [address] [place] [address] Aug, [facility] [address] [place] [id number] Aug, [facility] [address] [place], [place] [id number] Jul, [facility] [address] [place] [id number] Jul, [facility] [address] [place], [place] [id number] May, [facility] [address] [place] [id number] May, [facility] [address] [place] [id number] Apr, [facility] [address] [place] [id number] Mar, [facility] [address] [place] [address] Mar, [facility] [address] [place] [address] Feb, [facility] [address] [place] [id number] Jan, [facility] [address] [place] [id number] Jan, [facility] [address] [place] [id number] Nov, [facility] [address] [place] [id number] October, [facility] [address] [place] [id number] October, [facility] [address] [place] [address] Sep, [facility] [address] [place] [id number] Aug, [facility] [address] [place] [id number] Jul, [facility] [address] [place] [id number] Jun, [facility] [address] [place] [id number] May, [facility] [address] [place] [id number] Mar, [facility] [address] [place] [id number] Mar, [facility] [address] [place], [place] [id number] Jan, [facility] [address] [place] [id number] Dec, [facility] [address] [place] [id number] Nov, [facility] [address] [place] [id number] October, [facility] [address] [place] [id number] Aug, [facility] [address] [place] [id number] Jul, [facility] [address] [place] [id number] Jun, [facility] [address] [place] [id number] Jun, [facility] [address] [place] [id number] Jun, [facility] [address] [place] [id number] May, [facility] [address] [place] [id number] Apr, [facility] [address] [place] [id number] Mar, [facility] [address] [place] [id number] Mar, [facility] [address] [place] [id number] Mar, IMMUNIZATIONS No Known Immunizations SOCIAL HISTORY [...]
--- OUTSIDE RECORDS SUMMARY | 2018-02-04 20:31 | XMS REPORT ---
Author Author Rogelio Prado Organization [facility] Address [address], [facility] [address] [place], [place] [id number] Care Team Providers Care Software Engineering Manager Name Role Phone [place], Rogelio Unavailable PROBLEMS Type Condition ICD9-CM Code BCM39-BT Code Onset Dates Condition Status SNOMED Code Problem Constipation K59.00 Active 39796733 Problem Depression, unspecified depression type F32.9 Active 33811778 Problem COPD (chronic obstructive pulmonary disease) with acute bronchitis J44.0 Active [id number] Problem Gastritis without bleeding, unspecified chronicity, unspecified gastritis type K29.70 Active 5754680 Problem Chronic sinusitis, unspecified J32.9 Active 014555076 Problem Obstructive sleep apnea syndrome G47.33 Active 22887192 Problem Closed fracture of one rib of right side with routine healing, subsequent encounter S22.31XD Active 38205157 Problem Acute sinusitis, unspecified J01.90 Active 91150899 Problem Nocturnal hypoxia G47.34 Active 425968488 Problem Hyperlipidemia E78.5 Active 67341033 Problem COPD (chronic obstructive pulmonary disease) J44.9 Active 19607678 Problem Intellectual disability F79 Active 52947633 Problem Hypertension I10 Active 67322806 Problem COPD exacerbation J44.1 Active 619568441 Problem Postmenopausal Z78.0 Active 30103516 Problem Angina pectoris I20.9 Active 322305125 ALLERGIES No Information ENCOUNTERS Encounter Location Date Diagnosis [facility] [address], [address] [place], [place] [id number] Aug, [facility] [address], [address] [place] [id number] Aug, [facility] [address], [address] [place] [id number] Jun, [facility] [address], [address] [place] [id number] Jun, [facility] [address], [address] [place] [id number] Jun, [facility] [address], [address] [place] [id number] Jun, Acute pain of left shoulder M25.512 [facility] [address], [address] [place] [id number] Jun, Acute pain of left shoulder M25.512 ; Gastritis without bleeding, unspecified chronicity, unspecified gastritis type K29.70 ; Hypertension I10 ; COPD (chronic obstructive pulmonary disease) J44.9 and Hyperlipidemia E78.5 [facility] [address] [place], [place] [id number] Jun, [facility] [address], [address] [place] [id number] Jun, [facility] [address], [address] [place] [id number] May, [facility] [address], [address] [place] [id number] May, Acute pain of left shoulder M25.512 ; Intellectual disability F79 and Closed fracture of one rib of right side with routine healing, subsequent encounter S22.31XD [facility] [address], [address] [place] [id number] May, [facility] [address], [address] [place] [id number] May, [facility] [address], [address] [place] [id number] May, [facility] [address], [address] [place] [id number] May, Acute bronchitis, unspecified organism J20.9 ; Hypertension I10 ; COPD ( chronic obstructive pulmonary disease) J44.9 ; Hyperlipidemia E78.5 ; Nocturnal hypoxia G47.34 and Obstructive sleep apnea syndrome G47.33 [facility] [address] [place] [id number] Apr, Pain with urination R30.9 ; Hypertension I10 ; COPD (chronic obstructive pulmonary disease) J44.9 ; Hyperlipidemia E78.5 and Acute bronchitis, unspecified organism J20.9 [facility] [address], [address] [place] [id number] Apr, Hypertension I10 [facility] [address], [address] [place] [id number] Apr, Acute sinusitis, unspecified J01.90 [facility] [address], [address] [place] [id number] Apr, [facility] [address], [address] [place] [id number] Mar, [facility] [address], [address] [place] [id number] Mar, Other specified bacterial agents as the cause of diseases classified elsewhere B96.89 and Acute sinusitis, unspecified J01.90 [facility] [address], [address] [place] [id number] Mar, Closed fracture of one rib of right side with routine healing, subsequent encounter S22.31XD [facility] [address], [address] [place] [id number] Mar, [facility] [address], [address] [place] [id number] Mar, COPD (chronic obstructive pulmonary disease) J44.9 ; Closed fracture of one rib of right side with routine healing, subsequent encounter S22.31XD ; Hypertension I10 ; Constipation K59.00 ; Angina pectoris I20.9 ; Depression, unspecified depression type F32.9 and Left ear pain H92.02 [facility] [address] [place] [id number] Mar, Elevated glucose R73.09 [facility] [address], [address] [place] [id number] Mar, [facility] [address], [address] [place] [id number] Mar, Left-sided chest wall pain R07.89 and Hypertension I10 [facility] [address], [address] [place] [id number] Feb, [facility] [address], [address] [place] [id number] Feb, Hypertension I10 [facility] [address], [address] [place] [id number] Feb, Closed fracture of one rib of right side, initial encounter S22.31XA ; Intellectual disability F79 ; COPD (chronic obstructive pulmonary disease) J44.9 ; Hyperlipidemia E78.5 and Hypertension I10 [facility] [address] [place] [id number] Feb, [facility] [address] [place] [id number] Feb, Dysuria R30.0 [facility] [address], [address] [place] [id number] Jan, Closed fracture of one rib of right side, initial encounter S22.31XA [facility] [address], [address] [place] [id number] Jan, [facility] [address] [place] [id number] Jan, [facility] [address] [place] [id number] Jan, Contusion of left side of back, initial encounter S20.222A [facility] [address] [place] [id number] Jan, [facility] [address] [place] [id number] Dec, [facility] [address] [place] [id number] Dec, [facility] [address] [place] [id number] Dec, COPD (chronic obstructive pulmonary disease) J44.9 and Hypertension I10 [facility] [address] [place] [id number] Dec, [facility] [address], [address] [place] [id number] Dec, [facility] [address] [place] [id number] Dec, Skin irritation R23.8 [facility] [address] [place] [id number] Dec, [facility] [address] [place] [id number] Dec, [facility] [address] [place] [id number] Dec, [facility] [address] [place] [id number] Dec, [facility] [address] [place] [id number] October, Dysuria R30.0 and Pain of left calf M79.662 [facility] [address] [place] [id number] October, Pain of right great toe M79.674 and Overgrown toenails L60.2 [facility] [address] [place] [id number] Sep, [facility] [address] [place] [id number] Sep, [facility] [address] [place] [id number] Sep, Pain with urination R30.9 ; Abdominal pain, unspecified location R10.9 and Loose stools R19.5 [facility] [address] [place] [id number] Sep, Hypertension I10 [facility] [address], [address] [place] [id number] Sep, [facility] [address] [place] [id number] Sep, Acute cystitis with hematuria N30.01 [facility] [address] [place] [id number] Sep, [facility] [address] [place] [id number] Sep, Urinary frequency R35.0 [facility] [address] [place] [id number] Aug, [facility] [address] [place] [id number] Aug, Screening for breast cancer Z12.39 [facility] [address] [place] [id number] Aug, [facility] [address] [place] [id number] Aug, [facility] [address] [place] [id number] Aug, [facility] [address] [place] [id number] Aug, [facility] [address] [place] [id number] Aug, [facility] [address] [place] [id number] Aug, [facility] [address] [place] [id number] Aug, [facility] [address] [place] [id number] Aug, [facility] [address] [place] [id number] Jul, Dysuria R30.0 [facility] [address] [place] [id number] 16 Jul, 2016 Chest wall pain R07.89 and Myofascial pain M79.1 [facility] [address] [place] [id number] Jul, [facility] [address] [place] [id number] Jul, Depression, unspecified depression type F32.9 ; Chronic obstructive pulmonary disease, unspecified COPD type J44.9 ; Hypertension I10 ; Angina pectoris I20.9 and Costochondritis M94.0 [facility] [address] [place] [id number] Jun, Acute non-recurrent maxillary sinusitis J01.00 [facility] [address] [place] [id number] Jun, [facility] [address] [place] [id number] Jun, [facility] [address] [place] [id number] Jun, [facility] [address] [place] [id number] Jun, [facility] [address] [place] [id number] Jun, [facility] [address] [place] [id number] Jun, Left-sided chest wall pain R07.89 and Cough due to bronchospasm J98.01 [facility] [address] [place] [id number] Jun, [facility] [address] [place] [id number] May, [facility] [address] [place] [id number] May, Left-sided chest wall pain R07.89 [facility] [address] [place] [id number] May, Left-sided chest wall pain R07.89 and Cough due to bronchospasm J98.01 [facility] [address] [place] [id number] May, [facility] [address] [place] [id number] May, Encounter for Medicare annual wellness exam Z00.00 ; Advanced directives, counseling/discussion Z71.89 ; Screening for osteoporosis Z13.820 ; Bilateral hearing loss, unspecified hearing loss type H91.93 ; Intellectual disability F79 ; COPD (chronic obstructive pulmonary disease) J44.9 ; Postmenopausal Z78.0 ; Hypertension I10 ; Hyperlipidemia E78.5 ; Constipation K59.00 and Angina pectoris I20.9 [facility] [address] [place] [id number] May, [facility] [address] [place] [id number] May, Left-sided chest wall pain R07.89 and Chest wall contusion, left, initial encounter S20.212A [facility] [address] [place] [id number] 13 May, 2016 Dog bite, subsequent encounter W54.0XXD [facility] [address] [place] [id number] May, Open bite of right hand, initial encounter S61.451A and Bitten by dog, initial encounter W54.0XXA [facility] [address] [place] [id number] May, [facility] [address], [facility] [address] [place] [id number] May, [facility] [address] [place] [id number] Apr, Chest congestion R09.89 ; COPD exacerbation J44.1 and Dermatitis L30.9 [facility] [address] [place] [id number] Apr, Secondary infection of skin L08.89 and Keratotic lesion L57.[address], [address] [place], [place] [id number] Mar, Hypertension I10 ; Bronchitis J40 and Cough R05 [facility] [address] [place] [id number] Feb, [facility] [address], [address] [place] [id number] Feb, Skin tag L91.[address], [address] [place] [id number] Dec, Dysuria R30.0 and Vaginitis N76.0 [facility] [address] [place] [id number] Dec, Constipation K59.00 ; Hypertension I10 ; Bronchitis J40 ; Post-tussive emesis R11.10 and Cough R05 [facility] [address], [address] [place] [id number] Dec, [facility] [address], [address] [place] [id number] Nov, Constipation K59.00 and Bronchitis J40 [facility] [address], [address] [place] [id number] Nov, [facility] [address], [address] [place] [id number] October, Dysuria R30.0 [facility] [address] [place] [id number] October, Urinary frequency R35.0 and UTI (urinary tract infection) N39.0 [facility] [address] [place] [id number] Sep, Intellectual disability F79 ; COPD (chronic obstructive pulmonary disease ) J44.9 ; Postmenopausal Z78.0 ; Hypertension I10 and Hyperlipidemia E78.5 [facility] [address], [address] [place] [id number] Aug, Pain with urination R30.9 ; Wrist pain, left M25.532 and Pain in scapula M89.8X1 [facility] [address], [address] [place] [id number] Jul, Pain with urination R30.9 and Vaginitis N76.[address], [facility] [address] [place] [id number] Jul, Screening for breast cancer Z12.39 [facility] [address], [address] [place] [id number] Jul, Acute upper respiratory infection, unspecified J06.9 and Other viral agents as the cause of diseases classified elsewhere B97.[address], [address] [place], [place] [id number] Jun, Cellulitis L03.[address], [address] [place] [id number] Jun, Gastritis 535.50 ; URI (upper respiratory infection) J06.9 and Ingrown toenail L60.0 [facility] [address], [address] [place] [id number] Apr, Gastritis 535.50 and Oral lesion K13.[address], [facility] [address] [place] [id number] Mar, Dysuria R30.0 and Pain of right scapula M89.8X1 [address], [address] [place] [id number] Mar, [facility] [address], [address] [place] [id number] Mar, [address], [address] [place] [id number] Feb, Right knee pain 719.[address], [address] [place] [id number] Feb, [facility] [address], [address] [place] [id number] Feb, Right knee pain 719.46 [facility] [address], [facility] [address] [place] [id number] Jan, Allergic rhinitis 477.9 and Cough 786.[address], [address] [place] [id number] Jan, [facility] [address], [address] [place] [id number] Jan, Insect bites 919.4 [facility] [address] [place] [id number] Jan, Fatigue 780.79 ; Gastritis 535.50 and Wound abscess 879.9 [facility] [address] [place] [id number] Dec, [facility] [address] [place] [id number] Nov, Fatigue 780.79 ; Weakness generalized 780.79 and Gastritis 535.50 [facility] [address] [place] [id number] Nov, [facility] [address] [place] [id number] October, [facility] [address] [place] [id number] October, [facility] [address] [place] [id number] October, [facility] [address] [place] [id number] October, [facility] [address] [place] [id number] Sep, [facility] [address] [place] [id number] Sep, [facility] [address] [place] [id number] Sep, [facility] [address] [place] [id number] Aug, [facility] [address] [place] [id number] Aug, [facility] [address] [place] [id number] Jul, [facility] [address] [place] [id number] Jul, [facility] [address] [place] [id number] May, [facility] [address] [place] [id number] May, [facility] [address] [place] [id number] Apr, [facility] [address] [place] [id number] Mar, [facility] [address] [place] [id number] Mar, [facility] [address] [place] [id number] Feb, [facility] [address] [place] [id number] Jan, [facility] [address] [place] [id number] Jan, [facility] [address] [place] [id number] Nov, [facility] [address] [place] [id number] October, [facility] [address] [place] [id number] October, [facility] [address] [place] [id number] Sep, [facility] [address] [place] [id number] Aug, [facility] [address] [place] [id number] Jul, [facility] [address] [place] [id number] Jun, [facility] [address] [place] [id number] May, [facility] [address] [place] [id number] Mar, [facility] [address] [place] [id number] Mar, [facility] [address] [place] [id number] Jan, [facility] [address] [place] [id number] Dec, [facility] [address] [place] [id number] Nov, [facility] [address] [place] [id number] October, [facility] [address] [place] [id number] Aug, [facility] [address] [place] [id number] Jul, [facility] [address] [place] [id number] Jun, [facility] [address] [place] [id number] Jun, [facility] [address] [place] [id number] Jun, [facility] [address] [place] [id number] May, [facility] [address] [place] [id number] Apr, [facility] [address] [place] [id number] Mar, [facility] [address], [address] [place] [id number] Mar, [facility] [address], [address] [place] [id number] Mar, IMMUNIZATIONS No Known Immunizations SOCIAL HISTORY Never Assessed REASON FOR VISIT lungs sounding junky- per home health PLAN OF CARE VITAL SIGNS MEDICATIONS Medication Instructions Dosage Frequency Start Date End Date Duration Status Levofloxacin 500 MG Orally Once a day 1 tablet 24h Dec, 07 days Active RESULTS No Results PROCEDURES No [...]
--- OUTSIDE RECORDS SUMMARY | 2018-02-04 20:32 | XMS REPORT ---
Author Author FILI BAUMAN Address Unknown Phone Unavailable Care Team Providers Care Neuropsychology Division Chief Name Role Phone Dr. Laine MERLOS PCP Unavailable Allergies Allergy Description Allergy Type No Known Drug Allergies Propensity to adverse reactions Procedures Procedure Type Procedure Description Date Physicians No codified procedures found for this patient. Results URINALYSIS Observation Test Name Observation Test Result Observation Test Units Observation Test Date Observation Test Time Color YELLOW 2012 11:23 Character CLEAR 12/04 11:23 Glucose NEGATIVE 11:23 Bilirubin NEGATIVE 11:23 Ketones NEGATIVE 11:23 Sp [place] 1.025 11:23 Ph 5.5 12/04/2012 11:23 Protein NEGATIVE 11:23 Urobilinogen 0.2 11:23 Nitrite NEGATIVE 11:23 Blood NEGATIVE 2012 11:23 Leukocytes TRACEH 11:23 Microscopic See Below 12/04/2012 11:23 Urine Volume 12 ml 11:23 Specimen Type SPUN 11:23 Bacteria 1+ (10-50) 12/04/2012 11:23 WBC/ 5-10 12/04/2012 11:23 Squa Epi Cell 2-5 11:23 Yeast RARE (0-2) 11:23 Culture To Follow 11:23 CULTURE URINE Observation Test Name Observation Test Result Observation Test Units Observation Test Date Observation Test Time TYPE OF SPECIMEN CC 12/06/2012 07:58 COMMENT: 12/06/2012 07:58 History of Immunizations Immunization Date no immunization entries Plan of Care Item Text No plan of care items. Procedure Date/Time/Initials Critical? Status No plan of care procedures. Medication List Medication Dose Units Frequency Start Date/Time Status none Problem List Problem Entered Date Resolved Date No known problems
--- OUTSIDE RECORDS SUMMARY | 2018-02-04 20:32 | XMS REPORT ---
Author Author Zenia aPdilla [facility] Address [address] [place] [address] Care Team Providers Care Independent Marketing Consultant Name Role Phone Zenia Padilla Unavailable PROBLEMS Type Condition ICD9-CM Code CBC32-WP Code Onset Dates Condition Status SNOMED Code Problem Constipation K59.00 Active 54522435 Problem Depression, unspecified depression type F32.9 Active 92418496 Problem COPD (chronic obstructive pulmonary disease) with acute bronchitis J44.0 Active 318030724772774 Problem Gastritis without bleeding, unspecified chronicity, unspecified gastritis type K29.70 Active 6232304 Problem Chronic sinusitis, unspecified J32.9 Active 489840571 Problem Obstructive sleep apnea syndrome G47.33 Active 35656896 Problem Closed fracture of one rib of right side with routine healing, subsequent encounter S22.31XD Active 54040894 Problem Acute sinusitis, unspecified J01.90 Active 20967031 Problem Nocturnal hypoxia G47.34 Active 835795001 Problem Hyperlipidemia E78.5 Active 96018023 Problem COPD (chronic obstructive pulmonary disease) J44.9 Active 69299639 Problem Intellectual disability F79 Active 69269553 Problem Hypertension I10 Active 11309060 Problem COPD exacerbation J44.1 Active 791793243 Problem Postmenopausal Z78.0 Active 10126432 Problem Angina pectoris I20.9 Active 349274571 ALLERGIES No Information SOCIAL HISTORY Never Assessed PLAN OF CARE VITAL SIGNS MEDICATIONS Medication Instructions Dosage Frequency Start Date End Date Duration Status Levaquin 750 MG Orally Once a day, every other day 1 tablet Jun, 14 days Active RESULTS No Results PROCEDURES No [...]
--- OUTSIDE RECORDS SUMMARY | 2018-02-04 20:34 | XMS REPORT | Continuity of Care Document ---
Author Author [facility] Organization [facility] Address Unknown Phone Unavailable Allergies Active Description Code Type Severity Reaction Onset Reported/Identified Relationship to Patient Clinical Status Yes ceftriaxone Drug Allergy N/A N/A Confirmed or Verified Yes No Known Drug Allergy Drug Allergy N/A N/A Confirmed but inactive Yes No Known Drug Allergies 11929812 Miscellaneous Allergy Moderate N/A Yes PENICILLIN [id number] Drug Allergy Unknown N/A Yes PENICILLINS (CLASS) 25934913 Drug Allergy Unknown N/A Yes ZITHROMAX [id number] Drug Allergy Unknown N/A Yes Penicillins [id number] N/A N/A Yes ROCEPHIN Drug Allergy Hives 08/07/2011 Yes ROCEPHIN Drug Allergy N/A Hives 08/05/2013 Yes No Known Allergies ZZ No Known Allergies N/A NKA 05/26/2014 Medications Medication Packaging Start Date Stop Date Route Dosage Sig None 07/10/2016 atenolol 100 mg tablet 2016 As Directed IPRATROPIUM-ALBUTEROL 0.5/3MG 3ML INH 12/27/2016 12/27/2016 HHN 1 ONDANSETRON (ZOFRAN) 4MG/2ML VIAL 12/27/2016 IVP 1 IPRATROPIUM-ALBUTEROL 0.5/3MG 3ML INH 12/27/2016 HHN 1 VTE PROPHYLAXIS PER PHARMACY 11/2016 SUB Q 1 SODIUM CHLORIDE 0.9##37; 10ML FLUSH SYR 12/27/2016 IVP 1 LEVAQUIN DOSING PER PHARMACY 11/2016 IV 1 ENOXAPARIN (LOVENOX) 40MG/0.4ML SYRINGE 12/27/2016 SUB Q 1 ACETAMINOPHEN (TYLENOL) 325MG TAB 12/27/2016 PO 2 TRAZODONE (DESYREL) 50MG TAB 11/2016 PO 2 FLUTICASONE/SALMETEROL(ADVAIR) 500/50INH 12/27/2016 INH 1 CITALOPRAM (CELEXA) 20MG TAB 12/2016 PO 2 METOPROLOL TARTRATE (LOPRESSOR) 50MG TAB 12/28/2016 PO 1 PANTOPRAZOLE (PROTONIX) 40MG TAB 12/28/2016 PO 1 CETYLPYRIDINIUM/BENZOCAINE(CEPACOL) JUAQUIN. 12/29/2016 PO 1 TRAMADOL (ULTRAM) 50MG TAB 201602/15/2017 PO 1 None 09/17/2017 atenolol 100 mg tablet 2017 As Directed <section xmlns="urn:hl7-org:v3" xmlns:xsi="http://www.3.org/2001/XMLSchema-instance"> <templateId root= "[email or web address]" /> <templateId root= "[id number]" /> <code codeSystemName="LOINC" codeSystem= "[id number]" code="28455-1" /> <title>Problems</title> <text> < table> <thead> <tr> <th>Date Dx Coded</th> <th> Attending</th> <th>Type</th> <th>Code</th> <th> Diagnosis</th> <th>Diagnosed By</th> </tr> </thead> < tbody> <tr> <td>05/02/2011</td> <td>LUCITAJACOB BURDEN DO</td> <td>D</td> <td>616.10</td> <td>VAGINITIS NOS</ td> <td /> </tr> <tr> <td>07/26/2011</td> <td>ARNOLDO WINSTON MD</td> <td>D</td> <td>300.00< /td> <td>ANXIETY STATE NOS</td> <td /> </tr> <tr > <td>07/26/2011</td> <td>ARNOLDO WINSTON MD</td> <td>D</td> <td>530.81</td> <td>ESOPHAGEAL REFLUX</td> <td /> </tr> <tr> <td>07/26/2011</td> < td>ARNOLDO WINSTON MD</td> <td>D</td> <td>786.59</td> <td>CHEST PAIN NEC</td> <td /> </tr> <tr> <td>07/26/2011</td> <td>ARNOLDO WINSTON MD</td> < td>A</td> <td>789.06</td> <td>ABDOMINAL PAIN EPIGASTRI</td> <td /> </tr> <tr> <td>08/08/2011</td> < td>LUCITA DO, JACOB Albarran</td> <td>D</td> <td>300.00</td> <td>ANXIETY STATE NOS</td> <td /> </tr> <tr> <td>08/08/2011</td> <td>LUCITA DOJACOB</td> <td>D</td > <td>401.9</td> <td>HYPERTENSION NOS</td> <td /> </tr> <tr> <td>08/08/2011</td> <td>LUCITA DO, JACOB Albarran</td> <td>D</td> <td>485</td> <td> BRONCOPNEUMONIA ORG NOS</td> <td /> </tr> <tr> < td>08/08/2011</td> <td>LUCITA DOJACOB</td> <td>D</td> <td>530.81</td> <td>ESOPHAGEAL REFLUX</td> <td /> </tr> <tr> <td>08/08/2011</td> <td>LUCITA DO, JACOB Albarran</td> <td>D</td> <td>708.0</td> <td> ALLERGIC URTICARIA</td> <td /> </tr> <tr> <td></td> <td>LUCITA DO, JACOB W</td> <td>D</td> <td>995.27</td> <td>DRUG ALLERGY NEC</td> <td /> </ tr> <tr> <td>08/08/2011</td> <td>LUCITA SHARAM, JACOB Albarran</ td> <td>D</td> <td>E849.9</td> <td>ACCIDENT IN PLACE NOS</td> <td /> </tr> <tr> <td>08/08/2011</td> <td>LUCITA DO, JACOB Albarran</td> <td>D</td> <td>E930.5</ td> <td>ADV EFF CEPHALOSPORIN</td> <td /> </tr> <tr> <td>09/25/2011</td> <td>MINDY ROSARIO, ADITI W</td> <td>D</td> <td>112.1</td> <td>CANDIDAL VULVOVAGINITIS</td> <td /> </tr> <tr> <td>10/04/2011</td> <td>LUCITA SHARMA, JACOB Albarran</td> <td>D</td> <td>789.06</td> <td>ABDOMINAL PAIN EPIGASTRI</td> <td /> </tr> <tr> <td>03/23/2015</td> <td>[facility] [place] [facility]</td> <td>W</td> <td>296.35</td> <td>Major Depressive Disorder, Recurrent, In Partial Remission</td> <td /> </tr> <tr> <td>03/23/2015</td> <td>[facility] [place] [facility]< /td> <td>W</td> <td>300.02</td> <td>Generalized Anxiety Disorder</td> <td /> </tr> <tr> <td></td> <td>[facility] [place] [facility]</td> <td>W</td> <td>317</td> <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</td> <td / > </tr> <tr> <td>12/01/2015</td> <td>NORBERTO HUDSON</td> <td>P</td> <td>J44.9</td> <td>Chronic obstructive pulmonary disease, unspecified</td> <td /> </tr> <tr> <td>01/26/2016</td> <td>NORBERTO HUDSON</td> <td>P</td> <td>E86.0</td> <td>Dehydration</td> <td /> </tr> <tr> <td>01/26/2016</td> <td> NORBERTO HUDSON</td> <td>F</td> <td>E860</td> <td> Dehydration</td> <td /> </tr> <tr> <td>2015</td> <td>NORBERTO HUDSON</td> <td>S</td> <td> J44.9</td> <td>Chronic obstructive pulmonary disease, unspecified</td> <td /> </tr> <tr> <td>01/26/2016</td> <td>NORBERTO HUDSON</td> <td>F</td> <td>J449</td> <td>Chronic obstructive pulmonary disease, unspecified</td> <td /> </tr> <tr> <td>05/05/2016</td> <td>NORBERTO HUDSON</td> <td>S</td> <td>I10</td> <td>Essential ( primary) hypertension</td> <td /> </tr> <tr> <td >05/05/2016</td> <td>NORBERTO HUDSON</td> <td>S</td> <td>I20.9</td> <td>Angina pectoris, unspecified</td> <td / > </tr> <tr> <td>05/05/2016</td> <td>NORBERTO HUDSON</td> <td>F</td> <td>I209</td> <td>Angina pectoris, unspecified</td> <td /> </tr> <tr> <td >05/05/2016</td> <td>NORBERTO HUDSON</td> <td>S</td> <td>J44.9</td> <td>Chronic obstructive pulmonary disease, unspecified</td> <td /> </tr> <tr> <td>2015</td> <td>NORBERTO HUDSON</td> <td>F</td> <td> J449</td> <td>Chronic obstructive pulmonary disease, unspecified</td> <td /> </tr> <tr> <td>05/05/2016</td> < td>NORBERTO HUDSON</td> <td>P</td> <td>R07.9</td> <td>Chest pain, unspecified</td> <td /> </tr> <tr> <td>05/05/2016</td> <td>NORBERTO HUDSON</td> <td>F</td > <td>R079</td> <td>Chest pain, unspecified</td> <td /> </tr> <tr> <td>05/25/2016</td> <td>SHAE SEO</td> <td>S</td> <td>F41.9</td> <td>Anxiety disorder, unspecified</td> <td /> </tr> <tr> <td >05/25/2016</td> <td>SHAE SEO</td> <td>F</td> <td>F419</td> <td>Anxiety disorder, unspecified</td> <td /> </tr> <tr> <td>05/25/2016</td> <td>SHAE SEO</td> <td>P</td> <td>R07.89</td> <td>Other chest pain</td> <td /> </tr> <tr> <td>05/25/2016 </td> <td>SHAE SEO</td> <td>F</td> <td>R0789</ td> <td>Other chest pain</td> <td /> </tr> <tr> <td>06/08/2016</td> <td>ALBERT FRANCOIS S</td> <td>P< /td> <td>R07.89</td> <td>Other chest pain</td> <td / > </tr> <tr> <td>06/26/2016</td> <td>Deion WRIGHT</td> <td>S</td> <td>R07.89</td> <td>Other chest pain</td> <td /> </tr> <tr> <td>06/26/2016</td> <td>Deion WRIGHT</td> <td>P</td> <td>Z51.89</td> <td>Encounter for other specified aftercare</td> <td /> </tr> <tr> <td>07/06/2016</td> <td>CECILIO LOVE</ td> <td>S</td> <td>J44.1</td> <td>Chronic obstructive pulmonary disease with (acute) exacerbation</td> <td /> </tr> <tr> <td>07/06/2016</td> <td>CECILIO LOVE </td> <td>F</td> <td>J441</td> <td>Chronic obstructive pulmonary disease with (acute) exacerbation</td> <td /> </tr> <tr> <td>07/06/2016</td> <td>CECILIO LOVE </td> <td>P</td> <td>R05</td> <td>Cough</td> <td /> </tr> <tr> <td>07/26/2016</td> <td> NORBERTO HUDSON</td> <td>S</td> <td>I10</td> <td> Essential (primary) hypertension</td> <td /> </tr> <tr> <td>07/26/2016</td> <td>NORBERTO HUDSON</td> <td>S </td> <td>J40</td> <td>Bronchitis, not specified as acute or chronic</td> <td /> </tr> <tr> <td>07/26/2016</ td> <td>NORBERTO HUDSON</td> <td>S</td> <td>J44.9< /td> <td>Chronic obstructive pulmonary disease, unspecified</td> <td /> </tr> <tr> <td>07/26/2016</td> <td> NORBERTO HUDSON</td> <td>F</td> <td>J449</td> <td> Chronic obstructive pulmonary disease, unspecified</td> <td /> < /tr> <tr> <td>07/26/2016</td> <td>NORBERTO HUDSON</ td> <td>S</td> <td>K21.9</td> <td>Gastro-esophageal reflux disease without esophagitis</td> <td /> </tr> <tr > <td>07/26/2016</td> <td>NORBERTO HUDSON</td> <td >F</td> <td>K219</td> <td>Gastro-esophageal reflux disease without esophagitis</td> <td /> </tr> <tr> <td> 07/26/2016</td> <td>NORBERTO HUDSON</td> <td>P</td> <td>R07.9</td> <td>Chest pain, unspecified</td> <td /> </tr> <tr> <td>07/26/2016</td> <td>NORBERTO HUDSON</td> <td>F</td> <td>R079</td> <td>Chest pain , unspecified</td> <td /> </tr> <tr> <td>2016</td> <td>BIANKA ENCINAS</td> <td>P</td> <td>R30.0< /td> <td>Dysuria</td> <td /> </tr> <tr> <td>08/21/2016</td> <td>CISCO PRADO</td> <td>S</td> <td>M54.6</td> <td>Pain in thoracic spine</td> <td / > </tr> <tr> <td>08/21/2016</td> <td>CISCO PRADO</td> <td>P</td> <td>Z51.89</td> <td> Encounter for other specified aftercare</td> <td /> </tr> <tr> <td>08/24/2016</td> <td>SATHISH ARENAS</td> <td>S</td> <td>I10</td> <td>Essential (primary) hypertension</ td> <td /> </tr> <tr> <td>08/24/2016</td> <td>SATHISH ARENAS</td> <td>P</td> <td>R07.89</td> <td>Other chest pain</td> <td /> </tr> <tr> <td>08/24/2016</td> <td>SATHISH ARENAS</td> <td>S</td> <td>R52</td> <td>Pain, unspecified</td> <td /> < /tr> <tr> <td>08/26/2016</td> <td>SATHISH ARENAS</td > <td>S</td> <td>E86.0</td> <td>Dehydration</td> <td /> </tr> <tr> <td>08/26/2016</td> <td> DEEPA SATHISH Weston</td> <td>S</td> <td>N39.0</td> <td> Urinary tract infection, site not specified</td> <td /> </tr> <tr> <td>08/26/2016</td> <td>DEEPA SATHISH Weston</td> <td>P</td> <td>R11.0</td> <td>Nausea</td> <td / > </tr> <tr> <td>09/18/2016</td> <td>CISCO PRADO</td> <td>S</td> <td>M54.6</td> <td>Pain in thoracic spine</td> <td /> </tr> <tr> <td>2016</td> <td>CISCO PRADO</td> <td>P</td> <td >Z51.89</td> <td>Encounter for other specified aftercare</td> <td /> </tr> <tr> <td>10/09/2016</td> <td> CISCO PRADO</td> <td>P</td> <td>Z12.31</td> < td>Encounter for screening mammogram for malignant neoplasm of breast</td> <td /> </tr> <tr> <td>10/15/2016</td> <td> BIANKA ENCINAS</td> <td>S</td> <td>R10.9</td> <td> Unspecified abdominal pain</td> <td /> </tr> <tr> <td>10/15/2016</td> <td>BIANKA ENCINAS</td> <td>P</td> <td>R30.9</td> <td>Painful micturition, unspecified</td> < td /> </tr> <tr> <td>11/15/2016</td> <td>MITA LESLIE</td> <td>P</td> <td>M79.662</td> <td>Pain in left lower leg</td> <td /> </tr> <tr> <td></td> <td>MITA LESLIE</td> <td>S</td> <td> R30.0</td> <td>Dysuria</td> <td /> </tr> <tr> <td>12/30/2016</td> <td>CISCO PRADO</td> <td>S </td> <td>D69.6</td> <td>Thrombocytopenia, unspecified</td> <td /> </tr> <tr> <td>12/30/2016</td> < td>CISCO PRADO</td> <td>S</td> <td>E86.0</td> <td>Dehydration</td> <td /> </tr> <tr> <td>02/2017</td> <td>CISCO PRADO</td> <td>S</td> <td>F32.9</td> <td>Major depressive disorder, single episode, unspecified</td> <td /> </tr> <tr> <td>2016</td> <td>CISCO PRADO</td> <td>S</td> <td >F41.9</td> <td>Anxiety disorder, unspecified</td> <td /> </tr> <tr> <td>12/30/2016</td> <td>CISCO PRADO</td> <td>S</td> <td>F79</td> <td>Unspecified intellectual disabilities</td> <td /> </tr> <tr> <td>12/30/2016</td> <td>CISCO PRADO</td> <td>S</td> <td>I10</td> <td>Essential (primary) hypertension</td> <td /> </tr> <tr> <td>12/30/2016</td> <td> CISCO PRADO</td> <td>P</td> <td>J18.9</td> < td>Pneumonia, unspecified organism</td> <td /> </tr> <tr > <td>12/30/2016</td> <td>CISCO PRADO</td> < td>S</td> <td>J44.0</td> <td>Chronic obstructive pulmonary disease with acute lower respiratory infection</td> <td /> </tr > <tr> <td>12/30/2016</td> <td>CISCO PRADO</td > <td>S</td> <td>J44.1</td> <td>Chronic obstructive pulmonary disease with (acute) exacerbation</td> <td /> </tr> <tr> <td>12/30/2016</td> <td>CISCO PRADO</td> <td>S</td> <td>M15.0</td> <td>Primary generalized ( osteo)arthritis</td> <td /> </tr> <tr> <td>12/30</td> <td>CISCO PRADO</td> <td>S</td> < td>N39.3</td> <td>Stress incontinence (female) (male)</td> < td /> </tr> <tr> <td>12/30/2016</td> <td> CISCO PRADO</td> <td>S</td> <td>R09.02</td> < td>Hypoxemia</td> <td /> </tr> <tr> <td>2016</td> <td>CISCO PRADO</td> <td>S</td> <td >Z79.1</td> <td>halfway (current) use of non-steroidal anti- inflammatories (NSAID)</td> <td /> </tr> <tr> < td>12/30/2016</td> <td>CISCO PRADO</td> <td>S</td> <td>Z79.52</td> <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 </td> <td /> </tr> <tr> <td>12/30/2016</td> <td>CISCO PRADO</td> <td>S</td> <td>Z79.82</td> <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</td> <td /> </ tr> <tr> <td>12/30/2016</td> <td>CISCO PRADO</ td> <td>S</td> <td>Z79.83</td> <td>marine oil terminal superintendent (current ) use of 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</td> <td /> </tr> <tr> <td>12/30/2016</td> <td>CISCO PRADO</td> <td>S</td> <td>Z79.899</td> <td>Other half-way (current) drug therapy</td > <td /> </tr> <tr> <td>12/30/2016</td> <td>CISCO PRADO</td> <td>S</td> <td>Z87.442</td> <td>Personal history of urinary calculi</td> <td /> </tr > <tr> <td>12/30/2016</td> <td>CISCO PRADO</td > <td>S</td> <td>Z88.0</td> <td>Allergy status to penicillin</td> <td /> </tr> <tr> <td>12/30/2016 </td> <td>CISCO PRADO</td> <td>S</td> <td> Z88.1</td> <td>Allergy status to other antibiotic agents status</td> <td /> </tr> <tr> <td>02/15/2017</td> < td>KEDAR CASTILLO</td> <td>P</td> <td>S22.31XA</td> <td>Fracture of one rib, right side, initial encounter for closed fracture</td > <td /> </tr> <tr> <td>02/15/2017</td> <td>KEDAR CASTILLO</td> <td>S</td> <td>S59.801A</td> <td>Other specified injuries of right elbow, initial encounter</td> <td /> </tr> <tr> <td>02/15/2017</td> <td> KEDAR CASTILLO</td> <td>S</td> <td>W01.198A</td> < td>Fall on same level from slipping, tripping and stumbling with subsequent striking against other object, initial encounter</td> <td /> </ tr> <tr> <td>02/15/2017</td> <td>KEDAR CASTILLO</td> <td>S</td> <td>Y92.018</td> <td>Other place in single-family (private) house as the place of occurrence of the external cause</ td> <td /> </tr> <tr> <td>03/07/2017</td> <td>CISCO PRADO</td> <td>P</td> <td>R30.0</td> <td>Dysuria</td> <td /> </tr> <tr> <td></td> <td>CISCO PRADO</td> <td>P</td> <td>I10</td> <td>Essential (primary) hypertension</td> <td / > </tr> <tr> <td>05/06/2017</td> <td>KEDAR CASTILLO</td> <td>P</td> <td>J20.9</td> <td>Acute bronchitis, unspecified</td> <td /> </tr> <tr> < td>06/18/2017</td> <td>SATHISH ARENAS</td> <td>P</td> <td>M43.6</td> <td>Torticollis</td> <td /> </tr> <tr> <td>06/27/2017</td> <td>SATHISH ARENAS</td> <td>S</td> <td>I10</td> <td>Essential (primary) hypertension</td> <td /> </tr> <tr> <td>2017</td> <td>SATHISH ARENAS</td> <td>S</td> <td> K29.70</td> <td>Gastritis, unspecified, without bleeding</td> <td /> </tr> <tr> <td>06/27/2017</td> <td>SATHISH ARENAS</td> <td>P</td> <td>R07.9</td> <td>Chest pain, unspecified</td> <td /> </tr> <tr> <td>09/2017</td> <td>SATHISH ARENAS</td> <td>S</td> <td >R47.1</td> <td>Dysarthria and anarthria</td> <td /> </ tr> <tr> <td>06/27/2017</td> <td>SATHISH ARENAS</td> <td>S</td> <td>R53.1</td> <td>Weakness</td> <td /> </tr> <tr> <td>07/07/2017</td> <td> NORBERTO HUDSON</td> <td>S</td> <td>J09.X2</td> < td>Influenza due to identified novel influenza A virus with other respiratory manifestations</td> <td /> </tr> <tr> <td>2017</td> <td>NORBERTO HUDSON</td> <td>P</td> <td> R05</td> <td>Cough</td> <td /> </tr> <tr> <td>07/08/2017</td> <td>Laine MERLOS</td> <td>S</td> <td>M25.512</td> <td>Pain in left shoulder</td> <td / > </tr> <tr> <td>07/08/2017</td> <td>Laine MERLOS</td> <td>P</td> <td>Z51.89</td> <td>Encounter for other specified aftercare</td> <td /> </tr> <tr> <td>07/08/2017</td> <td>Laine MERLOS</td> <td>S</td> <td>M25.512</td> <td>Pain in left shoulder</td> <td /> </tr> <tr> <td>07/08/2017</td> <td>Laine MERLOS</td> <td>P</td> <td>Z51.89</td> <td>Encounter for other specified aftercare</td> <td /> </tr> <tr> <td>07/08/2017</td> <td>Laine MERLOS</td> <td>S</td> <td>M25.512</td> <td>Pain in left shoulder</td> <td /> </tr> <tr> <td>07/08/2017</td> <td>Laine MERLOS</td> <td>P</td> <td>Z51.89</td> <td>Encounter for other specified aftercare</td> <td /> </tr> <tr> <td>07/19/2017</td> <td>Laine MERLOS</td> <td>S</td> <td>M25.512</td> <td>Pain in left shoulder</td> <td /> </tr> <tr> <td>07/19/2017</td> <td>Laine MERLOS</td> <td>P</td> <td>Z51.89</td> <td>Encounter for other specified aftercare</td> <td /> </tr> <tr> <td>07/19/2017</td> <td>DEMETRI SWEENEY</td> <td>P</td> <td>J22</td> <td>Unspecified acute lower respiratory infection</ td> <td /> </tr> <tr> <td>07/19/2017</td> <td>DEMETRI SWEENEY</td> <td>S</td> <td>R53.83</td> < td>Other fatigue</td> <td /> </tr> <tr> <td></td> <td>CECILIO LOVE</td> <td>S</td> <td> I10</td> <td>Essential (primary) hypertension</td> <td /> </tr> <tr> <td>08/08/2017</td> <td>CECILIO LOVE< /td> <td>S</td> <td>K29.00</td> <td>Acute gastritis without bleeding</td> <td /> </tr> <tr> <td></td> <td>CECILIO LOVE</td> <td>P</td> <td> R07.9</td> <td>Chest pain, unspecified</td> <td /> </tr > <tr> <td>08/19/2017</td> <td>BIANKA ENCINAS</td> <td>P</td> <td>R10.9</td> <td>Unspecified abdominal pain</ td> <td /> </tr> <tr> <td>09/17/2017</td> <td>Ramu Jorgensen</td> <td /> <td>379.21</td> <td>VitreousDegenerationDetachment</td> <td /> </tr> <tr> <td>10/10/2017</td> <td>LAURENBIANKA MENDEZ</td> <td> P</td> <td>Z12.31</td> <td>Encounter for screening mammogram for malignant neoplasm of breast</td> <td /> </tr> <tr> <td>10/23/2017</td> <td>Laine MERLOS</td> <td>S</ td> <td>M54.32</td> <td>Sciatica, left side</td> <td /> </tr> <tr> <td>10/23/2017</td> <td>Laine MERLOS</td> <td>P</td> <td>Z51.89</td> <td>Encounter for other specified aftercare</td> <td /> </tr> <tr> <td>10/23/2017</td> <td>Laine MERLOS</td> <td>S</td> <td>M54.32</td> <td>Sciatica, left side</td> <td /> </tr> <tr> <td>10/23/2017</td> <td>Laine MERLOS</td> <td>P</td> <td>Z51.89</td> <td>Encounter for other specified aftercare</td> <td /> </tr> <tr> <td>10/23/2017</td> <td>Laine MERLOS</td> <td>S</td> <td>M54.32</td> <td>Sciatica, left side</td> <td /> </tr> <tr> <td>10/23/2017</td> <td>Laine MERLOS</td> <td>P</td> <td>Z51.89</td> <td>Encounter for other specified aftercare</td> <td /> </tr> <tr> <td>11/23/2017</td> <td /> <td>Working</td> <td >G47.31</td> <td>Primary central sleep apnea</td> <td>Kwadwo Jones</td> </tr> <tr> <td>11/24/2017</td> <td >NORBERTO HUDSON</td> <td>S</td> <td>I10</td> <td> Essential (primary) hypertension</td> <td /> </tr> <tr> <td>11/24/2017</td> <td>NORBERTO HUDSON</td> <td>P </td> <td>I20.9</td> <td>Angina pectoris, unspecified</td> <td /> </tr> <tr> <td>11/24/2017</td> <td >NORBERTO HUDSON</td> <td>S</td> <td>J44.9</td> < td>Chronic obstructive pulmonary disease, unspecified</td> <td /> </tr> <tr> <td>11/24/2017</td> <td>NORBERTO HUDSON</td> <td>S</td> <td>R06.02</td> <td>Shortness of breath</td> <td /> </tr> <tr> <td>11/24/2017</td > <td>NORBERTO HUDSON</td> <td>A</td> <td>R07.9</ td> <td>Chest pain, unspecified</td> <td /> </tr> <tr> <td>12/05/2017</td> <td>Laine MERLOS</td> <td>S</td> <td>M54.32</td> <td>Sciatica, left side</td> <td /> </tr> <tr> <td>12/05/2017</td> <td> Laine MERLOS</td> <td>P</td> <td>Z51.89</td> <td> Encounter for other specified aftercare</td> <td /> </tr> <tr> <td>12/19/2017</td> <td>CISCO PRADO</td> <td>P</td> <td>N89.8</td> <td>Other specified noninflammatory disorders of vagina</td> <td /> </tr> <tr > <td>12/29/2017</td> <td>SATHISH ARENAS</td> <td>S </td> <td>I10</td> <td>Essential (primary) hypertension</td> <td /> </tr> <tr> <td>12/29/2017</td> < td>SATHISH ARENAS</td> <td>S</td> <td>J44.9</td> < td>Chronic obstructive pulmonary disease, unspecified</td> <td /> </tr> <tr> <td>12/29/2017</td> <td>SATHISH ARENAS< /td> <td>P</td> <td>R07.89</td> <td>Other chest pain< /td> <td /> </tr> <tr> <td>01/10/2018</td> <td>CISCO PRADO</td> <td>P</td> <td>R30.9</td> <td>Painful micturition, unspecified</td> <td /> </tr> <tr> <td>01/14/2018</td> <td>SATHISH ARENAS</td> <td>S</td> <td>I10</td> <td>Essential (primary) hypertension</td> <td /> </tr> <tr> <td>2017</td> <td>SATHISH ARENAS</td> <td>S</td> <td> K21.9</td> <td>Gastro-esophageal reflux disease without esophagitis</td > <td /> </tr> <tr> <td>01/14/2018</td> <td>SATHISH ARENAS</td> <td>S</td> <td>N39.0</td> <td>Urinary tract infection, site not specified</td> <td /> </ tr> <tr> <td>01/14/2018</td> <td>SATHISH ARENAS</td> <td>P</td> <td>R10.32</td> <td>Left lower quadrant pain</td> <td /> </tr> <tr> <td>01/15/2018</td> <td>SATHISH ARENAS</td> <td>S</td> <td>I10</td> <td>Essential (primary) hypertension</td> <td /> </tr> <tr> <td>01/15/2018</td> <td>ASTHISH ARENAS</td> <td>S</td> <td>K21.9</td> <td>Gastro-esophageal reflux disease without esophagitis</td> <td /> </tr> <tr> <td>01/15/2018</td> <td>SATHISH ARENAS</td> <td>S</td> <td>N39.0</td> <td>Urinary tract infection, site not specified </td> <td /> </tr> <tr> <td>01/15/2018</td> <td>SATHISH ARENAS</td> <td>P</td> <td>R10.32</td> <td>Left lower quadrant pain</td> <td /> </tr> <tr > <td>01/15/2018</td> <td>NORBERTO HUDSON</td> <td >S</td> <td>I10</td> <td>Essential (primary) hypertension</td > <td /> </tr> <tr> <td>01/15/2018</td> <td>NORBERTO HUDSON</td> <td>S</td> <td>J44.9</td> <td>Chronic obstructive pulmonary disease, unspecified</td> <td /> </tr> <tr> <td>01/15/2018</td> <td>NORBERTO HUDSON</td> <td>S</td> <td>K21.9</td> <td>Gastro- esophageal reflux disease without esophagitis</td> <td /> </tr> <tr> <td>01/15/2018</td> <td>NORBERTO HUDSON</td> <td>P</td> <td>R10.32</td> <td>Left lower quadrant pain</td> <td /> </tr> <tr> <td>01/28/2018</td> <td /> <td>P</td> <td>I10</td> <td> Essential (primary) hypertension</td> <td /> </tr> </tbody > </table> </text> <entry typeCode="DRIV"> <act moodCode="EVN" classCode ="ACT"> <templateId root="2.16.840.1.843061.10..4.3" /> <id nullFlavor="UNK" /> <code codeSystem="2.16.840.1.724374.5.6" code="CONC" displayName="Concern" /> <statusCode code="completed" /> < effectiveTime> <low value="[id number]" /> </effectiveTime> < entryRelationship typeCode="SUBJ"> <observation moodCode="EVN" classCode= "OBS"> <templateId root="2.16.840.1.807373.10..4.4" /> < id nullFlavor="UNK" /> <code codeSystem="2.16.840.1.194566.6.96" code= "[id number]" displayName="Diagnosis" /> <statusCode code="completed" /> <value codeSystem="I9" xsi:type="CD" code="616.10" displayName= "VAGINITIS NOS" /> </observation> </entryRelationship> </act> </ entry> <entry typeCode="DRIV"> <act moodCode="EVN" classCode="ACT"> < templateId root="216.840.1.048499.10..22.4.3" /> <id nullFlavor="UNK" / > <code codeSystem="216.840.1.727347.5.6" code="CONC" displayName="Concern " /> <statusCode code="completed" /> <effectiveTime> <low value ="[id number]" /> </effectiveTime> <entryRelationship typeCode="SUBJ"> <observation moodCode="EVN" classCode="OBS"> <templateId root= "16.840.1.615165.10.22.4.4" /> <id nullFlavor="UNK" /> < code codeSystem="216.840.1.711244.6.96" code="[id number]" displayName="Diagnosis " /> <statusCode code="completed" /> <value codeSystem="I9" xsi:type="CD" code="300.00" displayName="ANXIETY STATE NOS" /> </ observation> </entryRelationship> </act> </entry> <entry typeCode= "DRIV"> <act moodCode="EVN" classCode="ACT"> <templateId root= "16.840.1.379123.10.2022.4.3" /> <id nullFlavor="UNK" /> <code codeSystem="216.840.1.100284.5.6" code="CONC" displayName="Concern" /> < statusCode code="completed" /> <effectiveTime> <low value="20110727 " /> </effectiveTime> <entryRelationship typeCode="SUBJ"> < observation moodCode="EVN" classCode="OBS"> <templateId root= "840.1.321644.10.22.4.4" /> <id nullFlavor="UNK" /> < code codeSystem="840.1.495616.6.96" code="[id number]" displayName="Diagnosis " /> <statusCode code="completed" /> <value codeSystem="I9" xsi:type="CD" code="530.81" displayName="ESOPHAGEAL REFLUX" /> </ observation> </entryRelationship> </act> </entry> <entry typeCode= "DRIV"> <act moodCode="EVN" classCode="ACT"> <templateId root= "840.1.274609.10.22.4.3" /> <id nullFlavor="UNK" /> <code codeSystem="08.09.840.1.330068.5.6" code="CONC" displayName="Concern" /> < statusCode code="completed" /> <effectiveTime> <low value="20110727 " /> </effectiveTime> <entryRelationship typeCode="SUBJ"> < observation moodCode="EVN" classCode="OBS"> <templateId root= "840.1.225630.10.2022.4.4" /> <id nullFlavor="UNK" /> < code codeSystem="08.09.840.1.438329.6.96" code="934058917" displayName="Diagnosis " /> <statusCode code="completed" /> <value codeSystem="I9" xsi:type="CD" code="786.59" displayName="CHEST PAIN NEC" /> </observation > </entryRelationship> </act> </entry> <entry typeCode="DRIV"> < act moodCode="EVN" classCode="ACT"> <templateId root= "08.09.840.1.931694.10.20.22.4.3" /> <id nullFlavor="UNK" /> <code codeSystem="2.840.1.905256.5.6" code="CONC" displayName="Concern" /> < statusCode code="completed" /> <effectiveTime> <low value="20110727 " /> </effectiveTime> <entryRelationship typeCode="SUBJ"> < observation moodCode="EVN" classCode="OBS"> <templateId root= "08.09.840.1.648384.10..22.4.4" /> <id nullFlavor="UNK" /> < code codeSystem="2.840.1.251712.6.96" code="101084036" displayName="Diagnosis " /> <statusCode code="completed" /> <value codeSystem="I9" xsi:type="CD" code="789.06" displayName="ABDOMINAL PAIN EPIGASTRI" /> </ observation> </entryRelationship> </act> </entry> <entry typeCode= "DRIV"> <act moodCode="EVN" classCode="ACT"> <templateId root= "08.09.840.1.354116.10..22.4.3" /> <id nullFlavor="UNK" /> <code codeSystem="216.840.1.918394.5.6" code="CONC" displayName="Concern" /> < statusCode code="completed" /> <effectiveTime> <low value="20110808 " /> </effectiveTime> <entryRelationship typeCode="SUBJ"> < observation moodCode="EVN" classCode="OBS"> <templateId root= "08.09.840.1.051671.10..22.4.4" /> <id nullFlavor="UNK" /> < code codeSystem="840.1.976554.6.96" code="992626171" displayName="Diagnosis " /> <statusCode code="completed" /> <value codeSystem="I9" xsi:type="CD" code="300.00" displayName="ANXIETY STATE NOS" /> </ observation> </entryRelationship> </act> </entry> <entry typeCode= "DRIV"> <act moodCode="EVN" classCode="ACT"> <templateId root= "08.09.840.1.321034.10.20.22.4.3" /> <id nullFlavor="UNK" /> <code codeSystem="08.09.840.1.543920.5.6" code="CONC" displayName="Concern" /> < statusCode code="completed" /> <effectiveTime> <low value="46452639 " /> </effectiveTime> <entryRelationship typeCode="SUBJ"> < observation moodCode="EVN" classCode="OBS"> <templateId root= "08.09.840.1.393918.10.20.22.4.4" /> <id nullFlavor="UNK" /> < code codeSystem="08.09.840.1.722985.6.96" code="055006822" displayName="Diagnosis " /> <statusCode code="completed" /> <value codeSystem="I9" xsi:type="CD" code="401.9" displayName="HYPERTENSION NOS" /> </ observation> </entryRelationship> </act> </entry> <entry typeCode= "DRIV"> <act moodCode="EVN" classCode="ACT"> <templateId root= "840.1.067286.10...4.3" /> <id nullFlavor="UNK" /> <code codeSystem="840.1.191717.5.6" code="CONC" displayName="Concern" /> < statusCode code="completed" /> <effectiveTime> <low value="20110808 " /> </effectiveTime> <entryRelationship typeCode="SUBJ"> < observation moodCode="EVN" classCode="OBS"> <templateId root= "840.1.947297.04.12.22.4.4" /> <id nullFlavor="UNK" /> < code codeSystem="08.09.840.1.803461.6.96" code="937474461" displayName="Diagnosis " /> <statusCode code="completed" /> <value codeSystem="I9" xsi:type="CD" code="485" displayName="BRONCOPNEUMONIA ORG NOS" /> </ observation> </entryRelationship> </act> </entry> <entry typeCode= "DRIV"> <act moodCode="EVN" classCode="ACT"> <templateId root= "08.09.840.1.382040.10..4.3" /> <id nullFlavor="UNK" /> <code codeSystem="08.09.840.1.686603.5.6" code="CONC" displayName="Concern" /> < statusCode code="completed" /> <effectiveTime> <low value="20110808 " /> </effectiveTime> <entryRelationship typeCode="SUBJ"> < observation moodCode="EVN" classCode="OBS"> <templateId root= "08.09.840.1.060550...4.4" /> <id nullFlavor="UNK" /> < code codeSystem="216.840.1.837867.6.96" code="576803230" displayName="Diagnosis " /> <statusCode code="completed" /> <value codeSystem="I9" xsi:type="CD" code="530.81" displayName="ESOPHAGEAL REFLUX" /> </ observation> </entryRelationship> </act> </entry> <entry typeCode= "DRIV"> <act moodCode="EVN" classCode="ACT"> <templateId root= "2.16.840.1.514857.10..22.4.3" /> <id nullFlavor="UNK" /> <code codeSystem="2.16.840.1.003973.5.6" code="CONC" displayName="Concern" /> < statusCode code="completed" /> <effectiveTime> <low value="09858075 " /> </effectiveTime> <entryRelationship typeCode="SUBJ"> < observation moodCode="EVN" classCode="OBS"> <templateId root= "216.840.1.060345.10..22.4.4" /> <id nullFlavor="UNK" /> < code codeSystem="2.16.840.1.245946.6.96" code="002498747" displayName="Diagnosis " /> <statusCode code="completed" /> <value codeSystem="I9" xsi:type="CD" code="708.0" displayName="ALLERGIC URTICARIA" /> </ observation> </entryRelationship> </act> </entry> <entry typeCode= "DRIV"> <act moodCode="EVN" classCode="ACT"> <templateId root= "216.840.1.692742.10..22.4.3" /> <id nullFlavor="UNK" /> <code codeSystem="08.09.840.1.895404.5.6" code="CONC" displayName="Concern" /> < statusCode code="completed" /> <effectiveTime> <low value="20110808 " /> </effectiveTime> <entryRelationship typeCode="SUBJ"> < observation moodCode="EVN" classCode="OBS"> <templateId root= "840.1.634021...4.4" /> <id nullFlavor="UNK" /> < code codeSystem="840.1.115430.6.96" code="251554901" displayName="Diagnosis " /> <statusCode code="completed" /> <value codeSystem="I9" xsi:type="CD" code="995.27" displayName="DRUG ALLERGY NEC" /> </ observation> </entryRelationship> </act> </entry> <entry typeCode= "DRIV"> <act moodCode="EVN" classCode="ACT"> <templateId root= "840.1.450578.04.12.22.4.3" /> <id nullFlavor="UNK" /> <code codeSystem="840.1.203474.5.6" code="CONC" displayName="Concern" /> < statusCode code="completed" /> <effectiveTime> <low value="20110808 " /> </effectiveTime> <entryRelationship typeCode="SUBJ"> < observation moodCode="EVN" classCode="OBS"> <templateId root= "08.09.840.1.725852.04.12.22.4.4" /> <id nullFlavor="UNK" /> < code codeSystem="08.09.840.1.050713.6.96" code="085931452" displayName="Diagnosis " /> <statusCode code="completed" /> <value codeSystem="I9" xsi:type="CD" code="E849.9" displayName="ACCIDENT IN PLACE NOS" /> </ observation> </entryRelationship> </act> </entry> <entry typeCode= "DRIV"> <act moodCode="EVN" classCode="ACT"> <templateId root= "08.09.840.1.810754.10.20.22.4.3" /> <id nullFlavor="UNK" /> <code codeSystem="2.840.1.823490.5.6" code="CONC" displayName="Concern" /> < statusCode code="completed" /> <effectiveTime> <low value="20110808 " /> </effectiveTime> <entryRelationship typeCode="SUBJ"> < observation moodCode="EVN" classCode="OBS"> <templateId root= "08.09.840.1.553173.10.22.4.4" /> <id nullFlavor="UNK" /> < code codeSystem="2.840.1.707064.6.96" code="495122983" displayName="Diagnosis " /> <statusCode code="completed" /> <value codeSystem="I9" xsi:type="CD" code="E930.5" displayName="ADV EFF CEPHALOSPORIN" /> </ observation> </entryRelationship> </act> </entry> <entry typeCode= "DRIV"> <act moodCode="EVN" classCode="ACT"> <templateId root= "08.09.840.1.377910.10.2022.4.3" /> <id nullFlavor="UNK" /> <code codeSystem="2.840.1.948795.5.6" code="CONC" displayName="Concern" /> < statusCode code="completed" /> <effectiveTime> <low value="20110926 " /> </effectiveTime> <entryRelationship typeCode="SUBJ"> < observation moodCode="EVN" classCode="OBS"> <templateId root= "08.09.840.1.717562.10.2022.4.4" /> <id nullFlavor="UNK" /> < code codeSystem="08.09.840.1.053959.6.96" code="064707111" displayName="Diagnosis " /> <statusCode code="completed" /> <value codeSystem="I9" xsi:type="CD" code="112.1" displayName="CANDIDAL VULVOVAGINITIS" /> </ observation> </entryRelationship> </act> </entry> <entry typeCode= "DRIV"> <act moodCode="EVN" classCode="ACT"> <templateId root= "08.09.840.1.121442.10.22.4.3" /> <id nullFlavor="UNK" /> <code codeSystem="2.840.1.245183.5.6" code="CONC" displayName="Concern" /> < statusCode code="completed" /> <effectiveTime> <low value="20111005 " /> </effectiveTime> <entryRelationship typeCode="SUBJ"> < observation moodCode="EVN" classCode="OBS"> <templateId root= "08.09.840.1.407859.10.2022.4.4" /> <id nullFlavor="UNK" /> < code codeSystem="216.840.1.394802.6.96" code="279391391" displayName="Diagnosis " /> <statusCode code="completed" /> <value codeSystem="I9" xsi:type="CD" code="789.06" displayName="ABDOMINAL PAIN EPIGASTRI" /> </ observation> </entryRelationship> </act> </entry> <entry typeCode= "DRIV"> <act moodCode="EVN" classCode="ACT"> <templateId root= "16.840.1.400480.10..22.4.3" /> <id nullFlavor="UNK" /> <code codeSystem="2.840.1.251844.5.6" code="CONC" displayName="Concern" /> < statusCode code="completed" /> <effectiveTime> <low value="20150324 " /> </effectiveTime> <entryRelationship typeCode="SUBJ"> < observation moodCode="EVN" classCode="OBS"> <templateId root= "08.09.840.1.649446.10...4.4" /> <id nullFlavor="UNK" /> < code codeSystem="216.840.1.700771.6.96" code="160340161" displayName="Diagnosis " /> <statusCode code="completed" /> <value codeSystem="I9CDX " xsi:type="CD" code="296.35" 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, Recurrent , In Partial Remission" /> </observation> </entryRelationship> </ act> </entry> <entry typeCode="DRIV"> <act moodCode="EVN" classCode="ACT"> <templateId root="08.09.840.1.418171.10..22.4.3" /> <id nullFlavor= "UNK" /> <code codeSystem="216.840.1.768226.5.6" code="CONC" displayName= "Concern" /> <statusCode code="completed" /> <effectiveTime> < low value="20150324" /> </effectiveTime> <entryRelationship typeCode= "SUBJ"> <observation moodCode="EVN" classCode="OBS"> < templateId root="08.09.840.1.276047.10..22.4.4" /> <id nullFlavor="UNK " /> <code codeSystem="840.1.845277.6.96" code="074941936" displayName="Diagnosis" /> <statusCode code="completed" /> < value codeSystem="I9CDX" xsi:type="CD" code="300.02" displayName="Generalized Anxiety Disorder" /> </observation> </entryRelationship> </act> </entry> <entry typeCode="DRIV"> <act moodCode="EVN" classCode="ACT"> < templateId root="08.09.840.1.041012.10..22.4.3" /> <id nullFlavor="UNK" / > <code codeSystem="2.840.1.815024.5.6" code="CONC" displayName="Concern " /> <statusCode code="completed" /> <effectiveTime> <low value ="86088950" /> </effectiveTime> <entryRelationship typeCode="SUBJ"> <observation moodCode="EVN" classCode="OBS"> <templateId root= "08.09.840.1.858904.10.20.22.4.4" /> <id nullFlavor="UNK" /> < code codeSystem="08.09.840.1.138452.6.96" code="498180201" displayName="Diagnosis " /> <statusCode code="completed" /> <value codeSystem="I9CDX " xsi:type="CD" code="317" 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" /> </ observation> </entryRelationship> </act> </entry> <entry typeCode= "DRIV"> <act moodCode="EVN" classCode="ACT"> <templateId root= "08.09.840.1.953475.10..4.3" /> <id nullFlavor="UNK" /> <code codeSystem="840.1.145864.5.6" code="CONC" displayName="Concern" /> < statusCode code="completed" /> <effectiveTime> <low value="20151202 " /> </effectiveTime> <entryRelationship typeCode="SUBJ"> < observation moodCode="EVN" classCode="OBS"> <templateId root= "840.1.179485...4.4" /> <id nullFlavor="UNK" /> < code codeSystem="08.09.840.1.439312.6.96" code="846942754" displayName="Diagnosis " /> <statusCode code="completed" /> <value codeSystem="" xsi: type="CD" code="J44.9" displayName="Chronic obstructive pulmonary disease, unspecified" /> </observation> </entryRelationship> </act> </ entry> <entry typeCode="DRIV"> <act moodCode="EVN" classCode="ACT"> < templateId root="08.09.840.1.748056.10..4.3" /> <id nullFlavor="UNK" / > <code codeSystem="840.1.225964.5.6" code="CONC" displayName="Concern " /> <statusCode code="completed" /> <effectiveTime> <low value ="20160126" /> </effectiveTime> <entryRelationship typeCode="SUBJ"> <observation moodCode="EVN" classCode="OBS"> <templateId root= "840.1.511183.04.12.22.4.4" /> <id nullFlavor="UNK" /> < code codeSystem="216.840.1.766861.6.96" code="476895685" displayName="Diagnosis " /> <statusCode code="completed" /> <value codeSystem="" xsi: type="CD" code="E86.0" displayName="Dehydration" /> </observation> < /entryRelationship> </act> </entry> <entry typeCode="DRIV"> <act moodCode="EVN" classCode="ACT"> <templateId root= "216.840.1.304893.10..4.3" /> <id nullFlavor="UNK" /> <code codeSystem="216.840.1.740139.5.6" code="CONC" displayName="Concern" /> < statusCode code="completed" /> <effectiveTime> <low value="74245016 " /> </effectiveTime> <entryRelationship typeCode="SUBJ"> < observation moodCode="EVN" classCode="OBS"> <templateId root= "08.09.840.1.721312.10..4.4" /> <id nullFlavor="UNK" /> < code codeSystem="216.840.1.115036.6.96" code="728732714" displayName="Diagnosis " /> <statusCode code="completed" /> <value codeSystem="" xsi: type="CD" code="E860" displayName="Dehydration" /> </observation> </ entryRelationship> </act> </entry> <entry typeCode="DRIV"> <act moodCode ="EVN" classCode="ACT"> <templateId root="216.840.1.071068.10...4.3" / > <id nullFlavor="UNK" /> <code codeSystem="08.09.840.1.639768.5.6" code="CONC" displayName="Concern" /> <statusCode code="completed" /> < effectiveTime> <low value="20160126" /> </effectiveTime> < entryRelationship typeCode="SUBJ"> <observation moodCode="EVN" classCode= "OBS"> <templateId root="08.09.840.1.114961.04.12.22.4.4" /> < id nullFlavor="UNK" /> <code codeSystem="840.1.001968.6.96" code= "612551787" displayName="Diagnosis" /> <statusCode code="completed" /> <value codeSystem="" xsi:type="CD" code="J44.9" displayName="Chronic obstructive pulmonary disease, unspecified" /> </observation> </ entryRelationship> </act> </entry> <entry typeCode="DRIV"> <act moodCode ="EVN" classCode="ACT"> <templateId root="08.09.840.1.353610.04.12.22.4.3" / > <id nullFlavor="UNK" /> <code codeSystem="08.09.840.1.697237.5.6" code="CONC" displayName="Concern" /> <statusCode code="completed" /> < effectiveTime> <low value="20160126" /> </effectiveTime> < entryRelationship typeCode="SUBJ"> <observation moodCode="EVN" classCode= "OBS"> <templateId root="08.09.840.1.687336.04.12.22.4.4" /> < id nullFlavor="UNK" /> <code codeSystem="08.09.840.1.963935.6.96" code= "674155228" displayName="Diagnosis" /> <statusCode code="completed" /> <value codeSystem="" xsi:type="CD" code="J449" displayName="Chronic obstructive pulmonary disease, unspecified" /> </observation> </ entryRelationship> </act> </entry> <entry typeCode="DRIV"> <act moodCode ="EVN" classCode="ACT"> <templateId root="216.840.1.818805.10.22.4.3" / > <id nullFlavor="UNK" /> <code codeSystem="216.840.1.587033.5.6" code="CONC" displayName="Concern" /> <statusCode code="completed" /> < effectiveTime> <low value="59892149" /> </effectiveTime> < entryRelationship typeCode="SUBJ"> <observation moodCode="EVN" classCode= "OBS"> <templateId root="216.840.1.306268.10.22.4.4" /> < id nullFlavor="UNK" /> <code codeSystem="216.840.1.480664.6.96" code= "081078721" displayName="Diagnosis" /> <statusCode code="completed" /> <value codeSystem="" xsi:type="CD" code="I10" displayName="Essential ( primary) hypertension" /> </observation> </entryRelationship> </ act> </entry> <entry typeCode="DRIV"> <act moodCode="EVN" classCode="ACT"> <templateId root="216.840.1.674238.10.22.4.3" /> <id nullFlavor= "UNK" /> <code codeSystem="216.840.1.900631.5.6" code="CONC" displayName= "Concern" /> <statusCode code="completed" /> <effectiveTime> < low value="24878571" /> </effectiveTime> <entryRelationship typeCode= "SUBJ"> <observation moodCode="EVN" classCode="OBS"> < templateId root="840.1.315443.10..4.4" /> <id nullFlavor="UNK " /> <code codeSystem="840.1.260744.6.96" code="308627313" displayName="Diagnosis" /> <statusCode code="completed" /> < value codeSystem="" xsi:type="CD" code="I20.9" displayName="Angina pectoris, unspecified" /> </observation> </entryRelationship> </act> </ entry> <entry typeCode="DRIV"> <act moodCode="EVN" classCode="ACT"> < templateId root="08.09.840.1.786142.10..4.3" /> <id nullFlavor="UNK" / > <code codeSystem="08.09.840.1.375321.5.6" code="CONC" displayName="Concern " /> <statusCode code="completed" /> <effectiveTime> <low value ="20160505" /> </effectiveTime> <entryRelationship typeCode="SUBJ"> <observation moodCode="EVN" classCode="OBS"> <templateId root= "08.09.840.1.471408.10.22.4.4" /> <id nullFlavor="UNK" /> < code codeSystem="08.09.840.1.483472.6.96" code="300780101" displayName="Diagnosis " /> <statusCode code="completed" /> <value codeSystem="" xsi: type="CD" code="I209" displayName="Angina pectoris, unspecified" /> </ observation> </entryRelationship> </act> </entry> <entry typeCode= "DRIV"> <act moodCode="EVN" classCode="ACT"> <templateId root= "08.09.840.1.103626.10.20.22.4.3" /> <id nullFlavor="UNK" /> <code codeSystem="08.09.840.1.756394.5.6" code="CONC" displayName="Concern" /> < statusCode code="completed" /> <effectiveTime> <low value="20160505 " /> </effectiveTime> <entryRelationship typeCode="SUBJ"> < observation moodCode="EVN" classCode="OBS"> <templateId root= "08.09.840.1.484880.10..22.4.4" /> <id nullFlavor="UNK" /> < code codeSystem="2.840.1.061674.6.96" code="068791653" displayName="Diagnosis " /> <statusCode code="completed" /> <value codeSystem="" xsi: type="CD" code="J44.9" displayName="Chronic obstructive pulmonary disease, unspecified" /> </observation> </entryRelationship> </act> </ entry> <entry typeCode="DRIV"> <act moodCode="EVN" classCode="ACT"> < templateId root="08.09.840.1.072597.10..22.4.3" /> <id nullFlavor="UNK" / > <code codeSystem="2.840.1.282283.5.6" code="CONC" displayName="Concern " /> <statusCode code="completed" /> <effectiveTime> <low value ="20160505" /> </effectiveTime> <entryRelationship typeCode="SUBJ"> <observation moodCode="EVN" classCode="OBS"> <templateId root= "08.09.840.1.265197.10..22.4.4" /> <id nullFlavor="UNK" /> < code codeSystem="840.1.938200.6.96" code="519085287" displayName="Diagnosis " /> <statusCode code="completed" /> <value codeSystem="" xsi: type="CD" code="J449" displayName="Chronic obstructive pulmonary disease, unspecified" /> </observation> </entryRelationship> </act> </ entry> <entry typeCode="DRIV"> <act moodCode="EVN" classCode="ACT"> < templateId root="08.09.840.1.185088.10..22.4.3" /> <id nullFlavor="UNK" / > <code codeSystem="08.09.840.1.224391.5.6" code="CONC" displayName="Concern " /> <statusCode code="completed" /> <effectiveTime> <low value ="47410470" /> </effectiveTime> <entryRelationship typeCode="SUBJ"> <observation moodCode="EVN" classCode="OBS"> <templateId root= "08.09.840.1.562242.10..22.4.4" /> <id nullFlavor="UNK" /> < code codeSystem="08.09.840.1.011212.6.96" code="121020911" displayName="Diagnosis " /> <statusCode code="completed" /> <value codeSystem="" xsi: type="CD" code="R07.9" displayName="Chest pain, unspecified" /> </ observation> </entryRelationship> </act> </entry> <entry typeCode= "DRIV"> <act moodCode="EVN" classCode="ACT"> <templateId root= "840.1.731585.10..22.4.3" /> <id nullFlavor="UNK" /> <code codeSystem="840.1.173967.5.6" code="CONC" displayName="Concern" /> < statusCode code="completed" /> <effectiveTime> <low value="20160505 " /> </effectiveTime> <entryRelationship typeCode="SUBJ"> < observation moodCode="EVN" classCode="OBS"> <templateId root= "840.1.734501.10..4.4" /> <id nullFlavor="UNK" /> < code codeSystem="840.1.840091.6.96" code="317296369" displayName="Diagnosis " /> <statusCode code="completed" /> <value codeSystem="" xsi: type="CD" code="R079" displayName="Chest pain, unspecified" /> </ observation> </entryRelationship> </act> </entry> <entry typeCode= "DRIV"> <act moodCode="EVN" classCode="ACT"> <templateId root= "08.09.840.1.590085.10...4.3" /> <id nullFlavor="UNK" /> <code codeSystem="08.09.840.1.794318.5.6" code="CONC" displayName="Concern" /> < statusCode code="completed" /> <effectiveTime> <low value="20160526 " /> </effectiveTime> <entryRelationship typeCode="SUBJ"> < observation moodCode="EVN" classCode="OBS"> <templateId root= "08.09.840.1.795091.10..22.4.4" /> <id nullFlavor="UNK" /> < code codeSystem="216.840.1.049745.6.96" code="776931569" displayName="Diagnosis " /> <statusCode code="completed" /> <value codeSystem="" xsi: type="CD" code="F41.9" displayName="Anxiety disorder, unspecified" /> </ observation> </entryRelationship> </act> </entry> <entry typeCode= "DRIV"> <act moodCode="EVN" classCode="ACT"> <templateId root= "216.840.1.973927.10..22.4.3" /> <id nullFlavor="UNK" /> <code codeSystem="216.840.1.018129.5.6" code="CONC" displayName="Concern" /> < statusCode code="completed" /> <effectiveTime> <low value="07024418 " /> </effectiveTime> <entryRelationship typeCode="SUBJ"> < observation moodCode="EVN" classCode="OBS"> <templateId root= "16.840.1.088266.10..4.4" /> <id nullFlavor="UNK" /> < code codeSystem="216.840.1.430288.6.96" code="313187030" displayName="Diagnosis " /> <statusCode code="completed" /> <value codeSystem="" xsi: type="CD" code="F419" displayName="Anxiety disorder, unspecified" /> </ observation> </entryRelationship> </act> </entry> <entry typeCode= "DRIV"> <act moodCode="EVN" classCode="ACT"> <templateId root= "216.840.1.294811.10..22.4.3" /> <id nullFlavor="UNK" /> <code codeSystem="08.09.840.1.018161.5.6" code="CONC" displayName="Concern" /> < statusCode code="completed" /> <effectiveTime> <low value="20160526 " /> </effectiveTime> <entryRelationship typeCode="SUBJ"> < observation moodCode="EVN" classCode="OBS"> <templateId root= "08.09.840.1.095377...4.4" /> <id nullFlavor="UNK" /> < code codeSystem="840.1.228820.6.96" code="877510860" displayName="Diagnosis " /> <statusCode code="completed" /> <value codeSystem="" xsi: type="CD" code="R07.89" displayName="Other chest pain" /> </observation> </entryRelationship> </act> </entry> <entry typeCode="DRIV"> <act moodCode="EVN" classCode="ACT"> <templateId root= "08.09.840.1.039250.04.12.22.4.3" /> <id nullFlavor="UNK" /> <code codeSystem="08.09.840.1.516908.5.6" code="CONC" displayName="Concern" /> < statusCode code="completed" /> <effectiveTime> <low value="20160526 " /> </effectiveTime> <entryRelationship typeCode="SUBJ"> < observation moodCode="EVN" classCode="OBS"> <templateId root= "08.09.840.1.750794.04.12.22.4.4" /> <id nullFlavor="UNK" /> < code codeSystem="08.09.840.1.130968.6.96" code="746101113" displayName="Diagnosis " /> <statusCode code="completed" /> <value codeSystem="" xsi: type="CD" code="R0789" displayName="Other chest pain" /> </observation> </entryRelationship> </act> </entry> <entry typeCode="DRIV"> <act moodCode="EVN" classCode="ACT"> <templateId root= "[id number].3" /> <id nullFlavor="UNK" /> <code codeSystem="08.09.840.1.057475.5.6" code="CONC" displayName="Concern" /> < statusCode code="completed" /> <effectiveTime> <low value="[id number] " /> </effectiveTime> <entryRelationship typeCode="SUBJ"> < observation moodCode="EVN" classCode="OBS"> <templateId root= "08.09.840.1.560853.10.22.4.4" /> <id nullFlavor="UNK" /> < code codeSystem="08.09.840.1.672761.6.96" code="[id number]" displayName="Diagnosis " /> <statusCode code="completed" /> <value codeSystem="" xsi: type="CD" code="R07.89" displayName="Other chest pain" /> </observation> </entryRelationship> </act> </entry> <entry typeCode="DRIV"> <act moodCode="EVN" classCode="ACT"> <templateId root= "08.09.840.1.923137.10.20.22.4.3" /> <id nullFlavor="UNK" /> <code codeSystem="2.840.1.871174.5.6" code="CONC" displayName="Concern" /> < statusCode code="completed" /> <effectiveTime> <low value="[id number] " /> </effectiveTime> <entryRelationship typeCode="SUBJ"> < observation moodCode="EVN" classCode="OBS"> <templateId root= "08.09.840.1.127418.10.22.4.4" /> <id nullFlavor="UNK" /> < code codeSystem="2.840.1.177590.6.96" code="[id number]" displayName="Diagnosis " /> <statusCode code="completed" /> <value codeSystem="" xsi: type="CD" code="R07.89" displayName="Other chest pain" /> </observation> </entryRelationship> </act> </entry> <entry typeCode="DRIV"> <act moodCode="EVN" classCode="ACT"> <templateId root= "08.09.840.1.678597.10..4.3" /> <id nullFlavor="UNK" /> <code codeSystem="216.840.1.924924.5.6" code="CONC" displayName="Concern" /> < statusCode code="completed" /> <effectiveTime> <low value="20160626 " /> </effectiveTime> <entryRelationship typeCode="SUBJ"> < observation moodCode="EVN" classCode="OBS"> <templateId root= "08.09.840.1.820709.10.22.4.4" /> <id nullFlavor="UNK" /> < code codeSystem="216.840.1.301455.6.96" code="690345803" displayName="Diagnosis " /> <statusCode code="completed" /> <value codeSystem="" xsi: type="CD" code="Z51.89" displayName="Encounter for other specified aftercare" / > </observation> </entryRelationship> </act> </entry> <entry typeCode="DRIV"> <act moodCode="EVN" classCode="ACT"> <templateId root= "216.840.1.687567.10..4.3" /> <id nullFlavor="UNK" /> <code codeSystem="2.840.1.363375.5.6" code="CONC" displayName="Concern" /> < statusCode code="completed" /> <effectiveTime> <low value="20160706 " /> </effectiveTime> <entryRelationship typeCode="SUBJ"> < observation moodCode="EVN" classCode="OBS"> <templateId root= "16.840.1.782202.10..4.4" /> <id nullFlavor="UNK" /> < code codeSystem="216.840.1.418519.6.96" code="776104960" displayName="Diagnosis " /> <statusCode code="completed" /> <value codeSystem="" xsi: type="CD" code="J44.1" displayName="Chronic obstructive pulmonary disease with ( acute) exacerbation" /> </observation> </entryRelationship> </act > </entry> <entry typeCode="DRIV"> <act moodCode="EVN" classCode="ACT"> <templateId root="08.09.840.1.384869.10...4.3" /> <id nullFlavor="UNK " /> <code codeSystem="216.840.1.299401.5.6" code="CONC" displayName= "Concern" /> <statusCode code="completed" /> <effectiveTime> < low value="20160706" /> </effectiveTime> <entryRelationship typeCode= "SUBJ"> <observation moodCode="EVN" classCode="OBS"> < templateId root="08.09.840.1.446316.10.20.22.4.4" /> <id nullFlavor="UNK " /> <code codeSystem="08.09.840.1.326100.6.96" code="273555506" displayName="Diagnosis" /> <statusCode code="completed" /> < value codeSystem="" xsi:type="CD" code="J441" displayName="Chronic obstructive pulmonary disease with (acute) exacerbation" /> </observation> </ entryRelationship> </act> </entry> <entry typeCode="DRIV"> <act moodCode ="EVN" classCode="ACT"> <templateId root="08.09.840.1.129499.10.20.22.4.3" / > <id nullFlavor="UNK" /> <code codeSystem="2.840.1.940995.5.6" code="CONC" displayName="Concern" /> <statusCode code="completed" /> < effectiveTime> <low value="53809225" /> </effectiveTime> < entryRelationship typeCode="SUBJ"> <observation moodCode="EVN" classCode= "OBS"> <templateId root="16.840.1.338704.10.20.22.4.4" /> < id nullFlavor="UNK" /> <code codeSystem="216.840.1.417043.6.96" code= "266146685" displayName="Diagnosis" /> <statusCode code="completed" /> <value codeSystem="" xsi:type="CD" code="R05" displayName="Cough" /> </observation> </entryRelationship> </act> </entry> <entry typeCode="DRIV"> <act moodCode="EVN" classCode="ACT"> <templateId root= "08.09.840.1.703822.10..22.4.3" /> <id nullFlavor="UNK" /> <code codeSystem="840.1.412367.5.6" code="CONC" displayName="Concern" /> < statusCode code="completed" /> <effectiveTime> <low value="20160726 " /> </effectiveTime> <entryRelationship typeCode="SUBJ"> < observation moodCode="EVN" classCode="OBS"> <templateId root= "08.09.840.1.459417.10..4.4" /> <id nullFlavor="UNK" /> < code codeSystem="08.09.840.1.375521.6.96" code="471604874" displayName="Diagnosis " /> <statusCode code="completed" /> <value codeSystem="" xsi: type="CD" code="I10" displayName="Essential (primary) hypertension" /> </ observation> </entryRelationship> </act> </entry> <entry typeCode= "DRIV"> <act moodCode="EVN" classCode="ACT"> <templateId root= "08.09.840.1.257926.10...4.3" /> <id nullFlavor="UNK" /> <code codeSystem="2.840.1.737922.5.6" code="CONC" displayName="Concern" /> < statusCode code="completed" /> <effectiveTime> <low value="20160726 " /> </effectiveTime> <entryRelationship typeCode="SUBJ"> < observation moodCode="EVN" classCode="OBS"> <templateId root= "08.09.840.1.596919.10..22.4.4" /> <id nullFlavor="UNK" /> < code codeSystem="16.840.1.752711.6.96" code="797935730" displayName="Diagnosis " /> <statusCode code="completed" /> <value codeSystem="" xsi: type="CD" code="J40" displayName="Bronchitis, not specified as acute or chronic " /> </observation> </entryRelationship> </act> </entry> < entry typeCode="DRIV"> <act moodCode="EVN" classCode="ACT"> <templateId root="08.09.840.1.373947.10.20.22.4.3" /> <id nullFlavor="UNK" /> < code codeSystem="08.09.840.1.218929.5.6" code="CONC" displayName="Concern" /> <statusCode code="completed" /> <effectiveTime> <low value= "54801039" /> </effectiveTime> <entryRelationship typeCode="SUBJ"> <observation moodCode="EVN" classCode="OBS"> <templateId root= "08.09.840.1.472088.10..22.4.4" /> <id nullFlavor="UNK" /> < code codeSystem="216.840.1.056162.6.96" code="540884159" displayName="Diagnosis " /> <statusCode code="completed" /> <value codeSystem="" xsi: type="CD" code="J44.9" displayName="Chronic obstructive pulmonary disease, unspecified" /> </observation> </entryRelationship> </act> </ entry> <entry typeCode="DRIV"> <act moodCode="EVN" classCode="ACT"> < templateId root="08.09.840.1.278922.10.20.22.4.3" /> <id nullFlavor="UNK" / > <code codeSystem="08.09.840.1.133758.5.6" code="CONC" displayName="Concern " /> <statusCode code="completed" /> <effectiveTime> <low value ="20160726" /> </effectiveTime> <entryRelationship typeCode="SUBJ"> <observation moodCode="EVN" classCode="OBS"> <templateId root= "840.1.199852...4.4" /> <id nullFlavor="UNK" /> < code codeSystem="840.1.265505.6.96" code="391185087" displayName="Diagnosis " /> <statusCode code="completed" /> <value codeSystem="" xsi: type="CD" code="J449" displayName="Chronic obstructive pulmonary disease, unspecified" /> </observation> </entryRelationship> </act> </ entry> <entry typeCode="DRIV"> <act moodCode="EVN" classCode="ACT"> < templateId root="840.1.278904.10.4.3" /> <id nullFlavor="UNK" / > <code codeSystem="840.1.525111.5.6" code="CONC" displayName="Concern " /> <statusCode code="completed" /> <effectiveTime> <low value ="20160726" /> </effectiveTime> <entryRelationship typeCode="SUBJ"> <observation moodCode="EVN" classCode="OBS"> <templateId root= "840.1.932508.04.12.22.4.4" /> <id nullFlavor="UNK" /> < code codeSystem="840.1.266946.6.96" code="867346470" displayName="Diagnosis " /> <statusCode code="completed" /> <value codeSystem="" xsi: type="CD" code="K21.9" displayName="Gastro-esophageal reflux disease without esophagitis" /> </observation> </entryRelationship> </act> </ entry> <entry typeCode="DRIV"> <act moodCode="EVN" classCode="ACT"> < templateId root="216.840.1.238372.10..22.4.3" /> <id nullFlavor="UNK" / > <code codeSystem="216.840.1.725669.5.6" code="CONC" displayName="Concern " /> <statusCode code="completed" /> <effectiveTime> <low value ="42065832" /> </effectiveTime> <entryRelationship typeCode="SUBJ"> <observation moodCode="EVN" classCode="OBS"> <templateId root= "08.09.840.1.439868.10.22.4.4" /> <id nullFlavor="UNK" /> < code codeSystem="216.840.1.860320.6.96" code="502137689" displayName="Diagnosis " /> <statusCode code="completed" /> <value codeSystem="" xsi: type="CD" code="K219" displayName="Gastro-esophageal reflux disease without esophagitis" /> </observation> </entryRelationship> </act> </ entry> <entry typeCode="DRIV"> <act moodCode="EVN" classCode="ACT"> < templateId root="08.09.840.1.942661.10..22.4.3" /> <id nullFlavor="UNK" / > <code codeSystem="216.840.1.494029.5.6" code="CONC" displayName="Concern " /> <statusCode code="completed" /> <effectiveTime> <low value ="74972126" /> </effectiveTime> <entryRelationship typeCode="SUBJ"> <observation moodCode="EVN" classCode="OBS"> <templateId root= "08.09.840.1.525020.10..4.4" /> <id nullFlavor="UNK" /> < code codeSystem="08.09.840.1.088586.6.96" code="150478946" displayName="Diagnosis " /> <statusCode code="completed" /> <value codeSystem="" xsi: type="CD" code="R07.9" displayName="Chest pain, unspecified" /> </ observation> </entryRelationship> </act> </entry> <entry typeCode= "DRIV"> <act moodCode="EVN" classCode="ACT"> <templateId root= "08.09.840.1.231683.10..4.3" /> <id nullFlavor="UNK" /> <code codeSystem="2.840.1.314374.5.6" code="CONC" displayName="Concern" /> < statusCode code="completed" /> <effectiveTime> <low value="83643382 " /> </effectiveTime> <entryRelationship typeCode="SUBJ"> < observation moodCode="EVN" classCode="OBS"> <templateId root= "08.09.840.1.221799.10.22.4.4" /> <id nullFlavor="UNK" /> < code codeSystem="08.09.840.1.839254.6.96" code="847426302" displayName="Diagnosis " /> <statusCode code="completed" /> <value codeSystem="" xsi: type="CD" code="R079" displayName="Chest pain, unspecified" /> </ observation> </entryRelationship> </act> </entry> <entry typeCode= "DRIV"> <act moodCode="EVN" classCode="ACT"> <templateId root= "08.09.840.1.966212.10...4.3" /> <id nullFlavor="UNK" /> <code codeSystem="08.09.840.1.702258.5.6" code="CONC" displayName="Concern" /> < statusCode code="completed" /> <effectiveTime> <low value="20160820 " /> </effectiveTime> <entryRelationship typeCode="SUBJ"> < observation moodCode="EVN" classCode="OBS"> <templateId root= "08.09.840.1.395274.10..4.4" /> <id nullFlavor="UNK" /> < code codeSystem="2.840.1.993283.6.96" code="789812118" displayName="Diagnosis " /> <statusCode code="completed" /> <value codeSystem="" xsi: type="CD" code="R30.0" displayName="Dysuria" /> </observation> </ entryRelationship> </act> </entry> <entry typeCode="DRIV"> <act moodCode ="EVN" classCode="ACT"> <templateId root="08.09.840.1.340153.10..4.3" / > <id nullFlavor="UNK" /> <code codeSystem="2.840.1.172104.5.6" code="CONC" displayName="Concern" /> <statusCode code="completed" /> < effectiveTime> <low value="20160821" /> </effectiveTime> < entryRelationship typeCode="SUBJ"> <observation moodCode="EVN" classCode= "OBS"> <templateId root="08.09.840.1.951106.10.20.22.4.4" /> < id nullFlavor="UNK" /> <code codeSystem="840.1.443477.6.96" code= "371785278" displayName="Diagnosis" /> <statusCode code="completed" /> <value codeSystem="" xsi:type="CD" code="M54.6" displayName="Pain in thoracic spine" /> </observation> </entryRelationship> </act> </ entry> <entry typeCode="DRIV"> <act moodCode="EVN" classCode="ACT"> < templateId root="08.09.840.1.846683.10.20.22.4.3" /> <id nullFlavor="UNK" / > <code codeSystem="2.840.1.431655.5.6" code="CONC" displayName="Concern " /> <statusCode code="completed" /> <effectiveTime> <low value ="26488100" /> </effectiveTime> <entryRelationship typeCode="SUBJ"> <observation moodCode="EVN" classCode="OBS"> <templateId root= "08.09.840.1.880774.10.20.22.4.4" /> <id nullFlavor="UNK" /> < code codeSystem="840.1.249711.6.96" code="656573468" displayName="Diagnosis " /> <statusCode code="completed" /> <value codeSystem="" xsi: type="CD" code="Z51.89" displayName="Encounter for other specified aftercare" / > </observation> </entryRelationship> </act> </entry> <entry typeCode="DRIV"> <act moodCode="EVN" classCode="ACT"> <templateId root= "08.09.840.1.393738.10..22.4.3" /> <id nullFlavor="UNK" /> <code codeSystem="840.1.807954.5.6" code="CONC" displayName="Concern" /> < statusCode code="completed" /> <effectiveTime> <low value="20160824 " /> </effectiveTime> <entryRelationship typeCode="SUBJ"> < observation moodCode="EVN" classCode="OBS"> <templateId root= "840.1.831110.10..4.4" /> <id nullFlavor="UNK" /> < code codeSystem="08.09.840.1.045367.6.96" code="017889601" displayName="Diagnosis " /> <statusCode code="completed" /> <value codeSystem="" xsi: type="CD" code="I10" displayName="Essential (primary) hypertension" /> </ observation> </entryRelationship> </act> </entry> <entry typeCode= "DRIV"> <act moodCode="EVN" classCode="ACT"> <templateId root= "08.09.840.1.279724.10..22.4.3" /> <id nullFlavor="UNK" /> <code codeSystem="08.09.840.1.519185.5.6" code="CONC" displayName="Concern" /> < statusCode code="completed" /> <effectiveTime> <low value="20160824 " /> </effectiveTime> <entryRelationship typeCode="SUBJ"> < observation moodCode="EVN" classCode="OBS"> <templateId root= "08.09.840.1.154349.10..22.4.4" /> <id nullFlavor="UNK" /> < code codeSystem="216.840.1.617217.6.96" code="133664836" displayName="Diagnosis " /> <statusCode code="completed" /> <value codeSystem="" xsi: type="CD" code="R07.89" displayName="Other chest pain" /> </observation> </entryRelationship> </act> </entry> <entry typeCode="DRIV"> <act moodCode="EVN" classCode="ACT"> <templateId root= "08.09.840.1.965565.10.20.22.4.3" /> <id nullFlavor="UNK" /> <code codeSystem="216.840.1.286922.5.6" code="CONC" displayName="Concern" /> < statusCode code="completed" /> <effectiveTime> <low value="16884633 " /> </effectiveTime> <entryRelationship typeCode="SUBJ"> < observation moodCode="EVN" classCode="OBS"> <templateId root= "08.09.840.1.982823.10..22.4.4" /> <id nullFlavor="UNK" /> < code codeSystem="216.840.1.600147.6.96" code="025102925" displayName="Diagnosis " /> <statusCode code="completed" /> <value codeSystem="" xsi: type="CD" code="R52" displayName="Pain, unspecified" /> </observation> </entryRelationship> </act> </entry> <entry typeCode="DRIV"> <act moodCode="EVN" classCode="ACT"> <templateId root= "08.09.840.1.185010.10.20.22.4.3" /> <id nullFlavor="UNK" /> <code codeSystem="840.1.056839.5.6" code="CONC" displayName="Concern" /> < statusCode code="completed" /> <effectiveTime> <low value="20160826 " /> </effectiveTime> <entryRelationship typeCode="SUBJ"> < observation moodCode="EVN" classCode="OBS"> <templateId root= "840.1.351580.10..4.4" /> <id nullFlavor="UNK" /> < code codeSystem="840.1.134247.6.96" code="589585941" displayName="Diagnosis " /> <statusCode code="completed" /> <value codeSystem="" xsi: type="CD" code="E86.0" displayName="Dehydration" /> </observation> < /entryRelationship> </act> </entry> <entry typeCode="DRIV"> <act moodCode="EVN" classCode="ACT"> <templateId root= "840.1.155700.10..4.3" /> <id nullFlavor="UNK" /> <code codeSystem="840.1.106006.5.6" code="CONC" displayName="Concern" /> < statusCode code="completed" /> <effectiveTime> <low value="20160826 " /> </effectiveTime> <entryRelationship typeCode="SUBJ"> < observation moodCode="EVN" classCode="OBS"> <templateId root= "840.1.939069.10..4.4" /> <id nullFlavor="UNK" /> < code codeSystem="840.1.618550.6.96" code="854927492" displayName="Diagnosis " /> <statusCode code="completed" /> <value codeSystem="" xsi: type="CD" code="N39.0" displayName="Urinary tract infection, site not specified " /> </observation> </entryRelationship> </act> </entry> < entry typeCode="DRIV"> <act moodCode="EVN" classCode="ACT"> <templateId root="216.840.1.790275.10..22.4.3" /> <id nullFlavor="UNK" /> < code codeSystem="216.840.1.842858.5.6" code="CONC" displayName="Concern" /> <statusCode code="completed" /> <effectiveTime> <low value= "20160826" /> </effectiveTime> <entryRelationship typeCode="SUBJ"> <observation moodCode="EVN" classCode="OBS"> <templateId root= "08.09.840.1.827299.10.22.4.4" /> <id nullFlavor="UNK" /> < code codeSystem="216.840.1.795786.6.96" code="113176868" displayName="Diagnosis " /> <statusCode code="completed" /> <value codeSystem="" xsi: type="CD" code="R11.0" displayName="Nausea" /> </observation> </ entryRelationship> </act> </entry> <entry typeCode="DRIV"> <act moodCode ="EVN" classCode="ACT"> <templateId root="16.840.1.411427.10..22.4.3" / > <id nullFlavor="UNK" /> <code codeSystem="216.840.1.824540.5.6" code="CONC" displayName="Concern" /> <statusCode code="completed" /> < effectiveTime> <low value="20160918" /> </effectiveTime> < entryRelationship typeCode="SUBJ"> <observation moodCode="EVN" classCode= "OBS"> <templateId root="08.09.840.1.442487.10..22.4.4" /> < id nullFlavor="UNK" /> <code codeSystem="840.1.212901.6.96" code= "322772945" displayName="Diagnosis" /> <statusCode code="completed" /> <value codeSystem="" xsi:type="CD" code="M54.6" displayName="Pain in thoracic spine" /> </observation> </entryRelationship> </act> </ entry> <entry typeCode="DRIV"> <act moodCode="EVN" classCode="ACT"> < templateId root="08.09.840.1.075593.10..4.3" /> <id nullFlavor="UNK" / > <code codeSystem="08.09.840.1.263653.5.6" code="CONC" displayName="Concern " /> <statusCode code="completed" /> <effectiveTime> <low value ="75978511" /> </effectiveTime> <entryRelationship typeCode="SUBJ"> <observation moodCode="EVN" classCode="OBS"> <templateId root= "08.09.840.1.258249.10..4.4" /> <id nullFlavor="UNK" /> < code codeSystem="216.840.1.675563.6.96" code="130147917" displayName="Diagnosis " /> <statusCode code="completed" /> <value codeSystem="" xsi: type="CD" code="Z51.89" displayName="Encounter for other specified aftercare" / > </observation> </entryRelationship> </act> </entry> <entry typeCode="DRIV"> <act moodCode="EVN" classCode="ACT"> <templateId root= "840.1.906924.10..4.3" /> <id nullFlavor="UNK" /> <code codeSystem="840.1.106909.5.6" code="CONC" displayName="Concern" /> < statusCode code="completed" /> <effectiveTime> <low value="79217777 " /> </effectiveTime> <entryRelationship typeCode="SUBJ"> < observation moodCode="EVN" classCode="OBS"> <templateId root= "840.1.987883.04.12.22.4.4" /> <id nullFlavor="UNK" /> < code codeSystem="840.1.467532.6.96" code="838715394" displayName="Diagnosis " /> <statusCode code="completed" /> <value codeSystem="" xsi: type="CD" code="Z12.31" displayName="Encounter for screening mammogram for malignant neoplasm of breast" /> </observation> </entryRelationship > </act> </entry> <entry typeCode="DRIV"> <act moodCode="EVN" classCode= "ACT"> <templateId root="840.1.403062.10.4.3" /> <id nullFlavor="UNK" /> <code codeSystem="2.840.1.290849.5.6" code="CONC" displayName="Concern" /> <statusCode code="completed" /> < effectiveTime> <low value="87095865" /> </effectiveTime> < entryRelationship typeCode="SUBJ"> <observation moodCode="EVN" classCode= "OBS"> <templateId root="840.1.132802.10..22.4.4" /> < id nullFlavor="UNK" /> <code codeSystem="08.09.840.1.201480.6.96" code= "584021119" displayName="Diagnosis" /> <statusCode code="completed" /> <value codeSystem="" xsi:type="CD" code="R10.9" displayName= "Unspecified abdominal pain" /> </observation> </entryRelationship> </act> </entry> <entry typeCode="DRIV"> <act moodCode="EVN" classCode= "ACT"> <templateId root="08.09.840.1.786325.10..22.4.3" /> <id nullFlavor="UNK" /> <code codeSystem="216.840.1.883935.5.6" code="CONC" displayName="Concern" /> <statusCode code="completed" /> < effectiveTime> <low value="47814736" /> </effectiveTime> < entryRelationship typeCode="SUBJ"> <observation moodCode="EVN" classCode= "OBS"> <templateId root="08.09.840.1.468704.10.20.22.4.4" /> < id nullFlavor="UNK" /> <code codeSystem="216.840.1.884020.6.96" code= "308278872" displayName="Diagnosis" /> <statusCode code="completed" /> <value codeSystem="" xsi:type="CD" code="R30.9" displayName="Painful micturition, unspecified" /> </observation> </entryRelationship> </act> </entry> <entry typeCode="DRIV"> <act moodCode="EVN" classCode="ACT "> <templateId root="08.09.840.1.235585.10...4.3" /> <id nullFlavor ="UNK" /> <code codeSystem="840.1.537770.5.6" code="CONC" displayName= "Concern" /> <statusCode code="completed" /> <effectiveTime> < low value="20161115" /> </effectiveTime> <entryRelationship typeCode= "SUBJ"> <observation moodCode="EVN" classCode="OBS"> < templateId root="840.1.437240.10..4.4" /> <id nullFlavor="UNK " /> <code codeSystem="840.1.775553.6.96" code="943293238" displayName="Diagnosis" /> <statusCode code="completed" /> < value codeSystem="" xsi:type="CD" code="M79.662" displayName="Pain in left lower leg" /> </observation> </entryRelationship> </act> </entry > <entry typeCode="DRIV"> <act moodCode="EVN" classCode="ACT"> < templateId root="840.1.056709.10..4.3" /> <id nullFlavor="UNK" / > <code codeSystem="08.09.840.1.858734.5.6" code="CONC" displayName="Concern " /> <statusCode code="completed" /> <effectiveTime> <low value ="20161115" /> </effectiveTime> <entryRelationship typeCode="SUBJ"> <observation moodCode="EVN" classCode="OBS"> <templateId root= "840.1.777037.10..4.4" /> <id nullFlavor="UNK" /> < code codeSystem="08.09.830.1.089872.6.96" code="723179170" displayName="Diagnosis " /> <statusCode code="completed" /> <value codeSystem="" xsi: type="CD" code="R30.0" displayName="Dysuria" /> </observation> </ entryRelationship> </act> </entry> <entry typeCode="DRIV"> <act moodCode ="EVN" classCode="ACT"> <templateId root="216.840.1.799212.10..22.4.3" / > <id nullFlavor="UNK" /> <code codeSystem="216.840.1.533788.5.6" code="CONC" displayName="Concern" /> <statusCode code="completed" /> < effectiveTime> <low value="11921780" /> </effectiveTime> < entryRelationship typeCode="SUBJ"> <observation moodCode="EVN" classCode= "OBS"> <templateId root="08.09.840.1.299314.10..22.4.4" /> < id nullFlavor="UNK" /> <code codeSystem="216.840.1.267177.6.96" code= "426323655" displayName="Diagnosis" /> <statusCode code="completed" /> <value codeSystem="" xsi:type="CD" code="D69.6" displayName= "Thrombocytopenia, unspecified" /> </observation> </ entryRelationship> </act> </entry> <entry typeCode="DRIV"> <act moodCode ="EVN" classCode="ACT"> <templateId root="16.840.1.504869.10.20.22.4.3" / > <id nullFlavor="UNK" /> <code codeSystem="216.840.1.844255.5.6" code="CONC" displayName="Concern" /> <statusCode code="completed" /> < effectiveTime> <low value="20161230" /> </effectiveTime> < entryRelationship typeCode="SUBJ"> <observation moodCode="EVN" classCode= "OBS"> <templateId root="08.09.840.1.159877.10..4.4" /> < id nullFlavor="UNK" /> <code codeSystem="840.1.172775.6.96" code= "058088890" displayName="Diagnosis" /> <statusCode code="completed" /> <value codeSystem="" xsi:type="CD" code="E86.0" displayName= "Dehydration" /> </observation> </entryRelationship> </act> </ entry> <entry typeCode="DRIV"> <act moodCode="EVN" classCode="ACT"> < templateId root="840.1.210545.10..4.3" /> <id nullFlavor="UNK" / > <code codeSystem="840.1.034826.5.6" code="CONC" displayName="Concern " /> <statusCode code="completed" /> <effectiveTime> <low value ="20161230" /> </effectiveTime> <entryRelationship typeCode="SUBJ"> <observation moodCode="EVN" classCode="OBS"> <templateId root= "08.09.840.1.073949.10..4.4" /> <id nullFlavor="UNK" /> < code codeSystem="08.09.840.1.703602.6.96" code="122054353" displayName="Diagnosis " /> <statusCode code="completed" /> <value codeSystem="" xsi: type="CD" code="F32.9" displayName="Major depressive disorder, single episode, unspecified" /> </observation> </entryRelationship> </act> </ entry> <entry typeCode="DRIV"> <act moodCode="EVN" classCode="ACT"> < templateId root="08.09.840.1.547377.10..22.4.3" /> <id nullFlavor="UNK" / > <code codeSystem="08.09.840.1.717526.5.6" code="CONC" displayName="Concern " /> <statusCode code="completed" /> <effectiveTime> <low value ="20161230" /> </effectiveTime> <entryRelationship typeCode="SUBJ"> <observation moodCode="EVN" classCode="OBS"> <templateId root= "08.09.840.1.742050.10..4.4" /> <id nullFlavor="UNK" /> < code codeSystem="08.09.840.1.136215.6.96" code="[id number]" displayName="Diagnosis " /> <statusCode code="completed" /> <value codeSystem="" xsi: type="CD" code="F41.9" displayName="Anxiety disorder, unspecified" /> </ observation> </entryRelationship> </act> </entry> <entry typeCode= "DRIV"> <act moodCode="EVN" classCode="ACT"> <templateId root= "08.09.840.1.060276.10..4.3" /> <id nullFlavor="UNK" /> <code codeSystem="08.09.840.1.888935.5.6" code="CONC" displayName="Concern" /> < statusCode code="completed" /> <effectiveTime> <low value="20161230 " /> </effectiveTime> <entryRelationship typeCode="SUBJ"> < observation moodCode="EVN" classCode="OBS"> <templateId root= "08.09.840.1.876565.10..22.4.4" /> <id nullFlavor="UNK" /> < code codeSystem="840.1.440011.6.96" code="[id number]" displayName="Diagnosis " /> <statusCode code="completed" /> <value codeSystem="" xsi: type="CD" code="F79" displayName="Unspecified intellectual disabilities" /> </observation> </entryRelationship> </act> </entry> <entry typeCode="DRIV"> <act moodCode="EVN" classCode="ACT"> <templateId root= "08.09.840.1.426461.10..4.3" /> <id nullFlavor="UNK" /> <code codeSystem="08.09.840.1.158695.5.6" code="CONC" displayName="Concern" /> < statusCode code="completed" /> <effectiveTime> <low value="90331917 " /> </effectiveTime> <entryRelationship typeCode="SUBJ"> < observation moodCode="EVN" classCode="OBS"> <templateId root= "08.09.840.1.659825.10..4.4" /> <id nullFlavor="UNK" /> < code codeSystem="08.09.840.1.130524.6.96" code="657050207" displayName="Diagnosis " /> <statusCode code="completed" /> <value codeSystem="" xsi: type="CD" code="I10" displayName="Essential (primary) hypertension" /> </ observation> </entryRelationship> </act> </entry> <entry typeCode= "DRIV"> <act moodCode="EVN" classCode="ACT"> <templateId root= "08.09.840.1.416146.10..4.3" /> <id nullFlavor="UNK" /> <code codeSystem="08.09.840.1.665952.5.6" code="CONC" displayName="Concern" /> < statusCode code="completed" /> <effectiveTime> <low value="20161230 " /> </effectiveTime> <entryRelationship typeCode="SUBJ"> < observation moodCode="EVN" classCode="OBS"> <templateId root= "08.09.840.1.797198.04.12.22.4.4" /> <id nullFlavor="UNK" /> < code codeSystem="08.09.840.1.210848.6.96" code="605863743" displayName="Diagnosis " /> <statusCode code="completed" /> <value codeSystem="" xsi: type="CD" code="J18.9" displayName="Pneumonia, unspecified organism" /> < /observation> </entryRelationship> </act> </entry> <entry typeCode= "DRIV"> <act moodCode="EVN" classCode="ACT"> <templateId root= "08.09.840.1.045197.10..4.3" /> <id nullFlavor="UNK" /> <code codeSystem="08.09.840.1.964973.5.6" code="CONC" displayName="Concern" /> < statusCode code="completed" /> <effectiveTime> <low value="89215317 " /> </effectiveTime> <entryRelationship typeCode="SUBJ"> < observation moodCode="EVN" classCode="OBS"> <templateId root= "08.09.840.1.036984.10..22.4.4" /> <id nullFlavor="UNK" /> < code codeSystem="216.840.1.996191.6.96" code="316112503" displayName="Diagnosis " /> <statusCode code="completed" /> <value codeSystem="" xsi: type="CD" code="J44.0" displayName="Chronic obstructive pulmonary disease with acute lower respiratory infection" /> </observation> </ entryRelationship> </act> </entry> <entry typeCode="DRIV"> <act moodCode ="EVN" classCode="ACT"> <templateId root="2.16.840.1.641628.10...4.3" / > <id nullFlavor="UNK" /> <code codeSystem="2.16.840.1.578004.5.6" code="CONC" displayName="Concern" /> <statusCode code="completed" /> < effectiveTime> <low value="57609042" /> </effectiveTime> < entryRelationship typeCode="SUBJ"> <observation moodCode="EVN" classCode= "OBS"> <templateId root="216.840.1.812345.10..22.4.4" /> < id nullFlavor="UNK" /> <code codeSystem="216.840.1.670028.6.96" code= "193689207" displayName="Diagnosis" /> <statusCode code="completed" /> <value codeSystem="" xsi:type="CD" code="J44.1" displayName="Chronic obstructive pulmonary disease with (acute) exacerbation" /> </observation > </entryRelationship> </act> </entry> <entry typeCode="DRIV"> < act moodCode="EVN" classCode="ACT"> <templateId root= "08.09.840.1.638550.10..22.4.3" /> <id nullFlavor="UNK" /> <code codeSystem="840.1.490628.5.6" code="CONC" displayName="Concern" /> < statusCode code="completed" /> <effectiveTime> <low value="20161230 " /> </effectiveTime> <entryRelationship typeCode="SUBJ"> < observation moodCode="EVN" classCode="OBS"> <templateId root= "840.1.451161.10..4.4" /> <id nullFlavor="UNK" /> < code codeSystem="840.1.806429.6.96" code="553619014" displayName="Diagnosis " /> <statusCode code="completed" /> <value codeSystem="" xsi: type="CD" code="M15.0" displayName="Primary generalized (osteo)arthritis" /> </observation> </entryRelationship> </act> </entry> <entry typeCode="DRIV"> <act moodCode="EVN" classCode="ACT"> <templateId root= "08.09.840.1.169811.10..4.3" /> <id nullFlavor="UNK" /> <code codeSystem="08.09.840.1.151421.5.6" code="CONC" displayName="Concern" /> < statusCode code="completed" /> <effectiveTime> <low value="20161230 " /> </effectiveTime> <entryRelationship typeCode="SUBJ"> < observation moodCode="EVN" classCode="OBS"> <templateId root= "08.09.840.1.691755.10..4.4" /> <id nullFlavor="UNK" /> < code codeSystem="840.1.796754.6.96" code="619875468" displayName="Diagnosis " /> <statusCode code="completed" /> <value codeSystem="" xsi: type="CD" code="N39.3" displayName="Stress incontinence (female) (male)" /> </observation> </entryRelationship> </act> </entry> <entry typeCode="DRIV"> <act moodCode="EVN" classCode="ACT"> <templateId root= "16.840.1.914863.10.20.22.4.3" /> <id nullFlavor="UNK" /> <code codeSystem="216.840.1.260806.5.6" code="CONC" displayName="Concern" /> < statusCode code="completed" /> <effectiveTime> <low value="94334530 " /> </effectiveTime> <entryRelationship typeCode="SUBJ"> < observation moodCode="EVN" classCode="OBS"> <templateId root= "16.840.1.948779.10..22.4.4" /> <id nullFlavor="UNK" /> < code codeSystem="216.840.1.767215.6.96" code="346193668" displayName="Diagnosis " /> <statusCode code="completed" /> <value codeSystem="" xsi: type="CD" code="R09.02" displayName="Hypoxemia" /> </observation> </ entryRelationship> </act> </entry> <entry typeCode="DRIV"> <act moodCode ="EVN" classCode="ACT"> <templateId root="16.840.1.140782.10.20.22.4.3" / > <id nullFlavor="UNK" /> <code codeSystem="216840.1.456012.5.6" code="CONC" displayName="Concern" /> <statusCode code="completed" /> < effectiveTime> <low value="20161230" /> </effectiveTime> < entryRelationship typeCode="SUBJ"> <observation moodCode="EVN" classCode= "OBS"> <templateId root="08.09.840.1.675745.10..4.4" /> < id nullFlavor="UNK" /> <code codeSystem="840.1.861304.6.96" code= "147717695" displayName="Diagnosis" /> <statusCode code="completed" /> <value codeSystem="" xsi:type="CD" code="Z79.1" 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)" /> </ observation> </entryRelationship> </act> </entry> <entry typeCode= "DRIV"> <act moodCode="EVN" classCode="ACT"> <templateId root= "08.09.840.1.148177.04.12.22.4.3" /> <id nullFlavor="UNK" /> <code codeSystem="08.09.840.1.507722.5.6" code="CONC" displayName="Concern" /> < statusCode code="completed" /> <effectiveTime> <low value="20161230 " /> </effectiveTime> <entryRelationship typeCode="SUBJ"> < observation moodCode="EVN" classCode="OBS"> <templateId root= "08.09.840.1.141221.04.12.22.4.4" /> <id nullFlavor="UNK" /> < code codeSystem="840.1.051941.6.96" code="439572402" displayName="Diagnosis " /> <statusCode code="completed" /> <value codeSystem="" xsi: type="CD" code="Z79.52" 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" /> </observation> </entryRelationship> </act> </entry > <entry typeCode="DRIV"> <act moodCode="EVN" classCode="ACT"> < templateId root="216.840.1.092764.10.20.22.4.3" /> <id nullFlavor="UNK" / > <code codeSystem="2.840.1.880791.5.6" code="CONC" displayName="Concern " /> <statusCode code="completed" /> <effectiveTime> <low value ="37962824" /> </effectiveTime> <entryRelationship typeCode="SUBJ"> <observation moodCode="EVN" classCode="OBS"> <templateId root= "08.09.840.1.245406.10.22.4.4" /> <id nullFlavor="UNK" /> < code codeSystem="2.840.1.726019.6.96" code="943637353" displayName="Diagnosis " /> <statusCode code="completed" /> <value codeSystem="" xsi: type="CD" code="Z79.82" 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" /> </observation> </entryRelationship> </act> </entry> <entry typeCode="DRIV"> <act moodCode="EVN" classCode="ACT"> <templateId root= "08.09.840.1.948237.10.20.22.4.3" /> <id nullFlavor="UNK" /> <code codeSystem="216.840.1.473984.5.6" code="CONC" displayName="Concern" /> < statusCode code="completed" /> <effectiveTime> <low value="20161230 " /> </effectiveTime> <entryRelationship typeCode="SUBJ"> < observation moodCode="EVN" classCode="OBS"> <templateId root= "08.09.840.1.790744.10.22.4.4" /> <id nullFlavor="UNK" /> < code codeSystem="2.840.1.376792.6.96" code="241852355" displayName="Diagnosis " /> <statusCode code="completed" /> <value codeSystem="" xsi: type="CD" code="Z79.83" 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 " /> </observation> </entryRelationship> </act> </entry> < entry typeCode="DRIV"> <act moodCode="EVN" classCode="ACT"> <templateId root="16.840.1.232233.10..4.3" /> <id nullFlavor="UNK" /> < code codeSystem="2.840.1.044405.5.6" code="CONC" displayName="Concern" /> <statusCode code="completed" /> <effectiveTime> <low value= "20161230" /> </effectiveTime> <entryRelationship typeCode="SUBJ"> <observation moodCode="EVN" classCode="OBS"> <templateId root= "08.09.840.1.219499.10.22.4.4" /> <id nullFlavor="UNK" /> < code codeSystem="216.840.1.414600.6.96" code="399273120" displayName="Diagnosis " /> <statusCode code="completed" /> <value codeSystem="" xsi: type="CD" code="Z79.899" 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" / > </observation> </entryRelationship> </act> </entry> <entry typeCode="DRIV"> <act moodCode="EVN" classCode="ACT"> <templateId root= "16.840.1.600243.10.20.22.4.3" /> <id nullFlavor="UNK" /> <code codeSystem="2.840.1.469251.5.6" code="CONC" displayName="Concern" /> < statusCode code="completed" /> <effectiveTime> <low value="20161230 " /> </effectiveTime> <entryRelationship typeCode="SUBJ"> < observation moodCode="EVN" classCode="OBS"> <templateId root= "16.840.1.352558.10...4.4" /> <id nullFlavor="UNK" /> < code codeSystem="216.840.1.841494.6.96" code="796920533" displayName="Diagnosis " /> <statusCode code="completed" /> <value codeSystem="" xsi: type="CD" code="Z87.442" displayName="Personal history of urinary calculi" /> </observation> </entryRelationship> </act> </entry> <entry typeCode="DRIV"> <act moodCode="EVN" classCode="ACT"> <templateId root= "08.09.840.1.266528.10..22.4.3" /> <id nullFlavor="UNK" /> <code codeSystem="216.840.1.693253.5.6" code="CONC" displayName="Concern" /> < statusCode code="completed" /> <effectiveTime> <low value="20161230 " /> </effectiveTime> <entryRelationship typeCode="SUBJ"> < observation moodCode="EVN" classCode="OBS"> <templateId root= "08.09.840.1.737913.10.20.22.4.4" /> <id nullFlavor="UNK" /> < code codeSystem="840.1.048651.6.96" code="442829322" displayName="Diagnosis " /> <statusCode code="completed" /> <value codeSystem="" xsi: type="CD" code="Z88.0" displayName="Allergy status to penicillin" /> </ observation> </entryRelationship> </act> </entry> <entry typeCode= "DRIV"> <act moodCode="EVN" classCode="ACT"> <templateId root= "08.09.840.1.136304.10.20.22.4.3" /> <id nullFlavor="UNK" /> <code codeSystem="08.09.840.1.107004.5.6" code="CONC" displayName="Concern" /> < statusCode code="completed" /> <effectiveTime> <low value="40179419 " /> </effectiveTime> <entryRelationship typeCode="SUBJ"> < observation moodCode="EVN" classCode="OBS"> <templateId root= "08.09.840.1.381396.10.20.22.4.4" /> <id nullFlavor="UNK" /> < code codeSystem="08.09.840.1.080086.6.96" code="118762421" displayName="Diagnosis " /> <statusCode code="completed" /> <value codeSystem="" xsi: type="CD" code="Z88.1" displayName="Allergy status to other antibiotic agents status" /> </observation> </entryRelationship> </act> </entry> <entry typeCode="DRIV"> <act moodCode="EVN" classCode="ACT"> < templateId root="08.09.840.1.537823.10..4.3" /> <id nullFlavor="UNK" / > <code codeSystem="08.09.840.1.406233.5.6" code="CONC" displayName="Concern " /> <statusCode code="completed" /> <effectiveTime> <low value ="20170215" /> </effectiveTime> <entryRelationship typeCode="SUBJ"> <observation moodCode="EVN" classCode="OBS"> <templateId root= "08.09.840.1.935449.04.12.22.4.4" /> <id nullFlavor="UNK" /> < code codeSystem="08.09.840.1.480549.6.96" code="350791700" displayName="Diagnosis " /> <statusCode code="completed" /> <value codeSystem="" xsi: type="CD" code="S22.31XA" displayName="Fracture of one rib, right side, initial encounter for closed fracture" /> </observation> </entryRelationship > </act> </entry> <entry typeCode="DRIV"> <act moodCode="EVN" classCode= "ACT"> <templateId root="08.09.840.1.557463.10..4.3" /> <id nullFlavor="UNK" /> <code codeSystem="840.1.854646.5.6" code="CONC" displayName="Concern" /> <statusCode code="completed" /> < effectiveTime> <low value="20170215" /> </effectiveTime> < entryRelationship typeCode="SUBJ"> <observation moodCode="EVN" classCode= "OBS"> <templateId root="08.09.840.1.453385.10.20.22.4.4" /> < id nullFlavor="UNK" /> <code codeSystem="216.840.1.640973.6.96" code= "760951231" displayName="Diagnosis" /> <statusCode code="completed" /> <value codeSystem="" xsi:type="CD" code="S59.801A" displayName="Other specified injuries of right elbow, initial encounter" /> </observation> </entryRelationship> </act> </entry> <entry typeCode="DRIV"> <act moodCode="EVN" classCode="ACT"> <templateId root= "2.16.840.1.114567.10..22.4.3" /> <id nullFlavor="UNK" /> <code codeSystem="2.16.840.1.112539.5.6" code="CONC" displayName="Concern" /> < statusCode code="completed" /> <effectiveTime> <low value="01194277 " /> </effectiveTime> <entryRelationship typeCode="SUBJ"> < observation moodCode="EVN" classCode="OBS"> <templateId root= "2.16.840.1.842683.10..22.4.4" /> <id nullFlavor="UNK" /> < code codeSystem="2.16.840.1.553869.6.96" code="428329343" displayName="Diagnosis " /> <statusCode code="completed" /> <value codeSystem="" xsi: type="CD" code="W01.198A" displayName="Fall on same level from slipping, tripping and stumbling with subsequent striking against other object, initial encounter" /> </observation> </entryRelationship> </act> </entry > <entry typeCode="DRIV"> <act moodCode="EVN" classCode="ACT"> < templateId root="08.09.840.1.426708.10..22.4.3" /> <id nullFlavor="UNK" / > <code codeSystem="840.1.728013.5.6" code="CONC" displayName="Concern " /> <statusCode code="completed" /> <effectiveTime> <low value ="20170215" /> </effectiveTime> <entryRelationship typeCode="SUBJ"> <observation moodCode="EVN" classCode="OBS"> <templateId root= "840.1.771694.10..4.4" /> <id nullFlavor="UNK" /> < code codeSystem="08.09.840.1.402138.6.96" code="327239136" displayName="Diagnosis " /> <statusCode code="completed" /> <value codeSystem="" xsi: type="CD" code="Y92.018" displayName="Other place in single-family (private) house as the place of occurrence of the external cause" /> </observation > </entryRelationship> </act> </entry> <entry typeCode="DRIV"> < act moodCode="EVN" classCode="ACT"> <templateId root= "08.09.840.1.714273.10...4.3" /> <id nullFlavor="UNK" /> <code codeSystem="08.09.840.1.310715.5.6" code="CONC" displayName="Concern" /> < statusCode code="completed" /> <effectiveTime> <low value="05016137 " /> </effectiveTime> <entryRelationship typeCode="SUBJ"> < observation moodCode="EVN" classCode="OBS"> <templateId root= "08.09.840.1.653552.04.12.22.4.4" /> <id nullFlavor="UNK" /> < code codeSystem="216.840.1.709723.6.96" code="017477653" displayName="Diagnosis " /> <statusCode code="completed" /> <value codeSystem="" xsi: type="CD" code="R30.0" displayName="Dysuria" /> </observation> </ entryRelationship> </act> </entry> <entry typeCode="DRIV"> <act moodCode ="EVN" classCode="ACT"> <templateId root="216.840.1.641978.04.12.22.4.3" / > <id nullFlavor="UNK" /> <code codeSystem="2.16.840.1.699811.5.6" code="CONC" displayName="Concern" /> <statusCode code="completed" /> < effectiveTime> <low value="16234876" /> </effectiveTime> < entryRelationship typeCode="SUBJ"> <observation moodCode="EVN" classCode= "OBS"> <templateId root="16.840.1.931799.04.12.22.4.4" /> < id nullFlavor="UNK" /> <code codeSystem="2.16.840.1.879770.6.96" code= "619422897" displayName="Diagnosis" /> <statusCode code="completed" /> <value codeSystem="" xsi:type="CD" code="I10" displayName="Essential ( primary) hypertension" /> </observation> </entryRelationship> </ act> </entry> <entry typeCode="DRIV"> <act moodCode="EVN" classCode="ACT"> <templateId root="216.840.1.650928...4.3" /> <id nullFlavor= "UNK" /> <code codeSystem="840.1.690274.5.6" code="CONC" displayName= "Concern" /> <statusCode code="completed" /> <effectiveTime> < low value="77632743" /> </effectiveTime> <entryRelationship typeCode= "SUBJ"> <observation moodCode="EVN" classCode="OBS"> < templateId root="840.1.831580.04.12.22.4.4" /> <id nullFlavor="UNK " /> <code codeSystem="840.1.554597.6.96" code="130350955" displayName="Diagnosis" /> <statusCode code="completed" /> < value codeSystem="" xsi:type="CD" code="J20.9" displayName="Acute bronchitis, unspecified" /> </observation> </entryRelationship> </act> </ entry> <entry typeCode="DRIV"> <act moodCode="EVN" classCode="ACT"> < templateId root="840.1.931220.04.12.22.4.3" /> <id nullFlavor="UNK" / > <code codeSystem="840.1.601133.5.6" code="CONC" displayName="Concern " /> <statusCode code="completed" /> <effectiveTime> <low value ="36696456" /> </effectiveTime> <entryRelationship typeCode="SUBJ"> <observation moodCode="EVN" classCode="OBS"> <templateId root= "840.1.044523.04.12.22.4.4" /> <id nullFlavor="UNK" /> < code codeSystem="840.1.958232.6.96" code="051698634" displayName="Diagnosis " /> <statusCode code="completed" /> <value codeSystem="" xsi: type="CD" code="M43.6" displayName="Torticollis" /> </observation> < /entryRelationship> </act> </entry> <entry typeCode="DRIV"> <act moodCode="EVN" classCode="ACT"> <templateId root= "216.840.1.124740.10.22.4.3" /> <id nullFlavor="UNK" /> <code codeSystem="216.840.1.357996.5.6" code="CONC" displayName="Concern" /> < statusCode code="completed" /> <effectiveTime> <low value="12182392 " /> </effectiveTime> <entryRelationship typeCode="SUBJ"> < observation moodCode="EVN" classCode="OBS"> <templateId root= "16.840.1.379672.10.22.4.4" /> <id nullFlavor="UNK" /> < code codeSystem="216.840.1.780400.6.96" code="197010944" displayName="Diagnosis " /> <statusCode code="completed" /> <value codeSystem="" xsi: type="CD" code="I10" displayName="Essential (primary) hypertension" /> </ observation> </entryRelationship> </act> </entry> <entry typeCode= "DRIV"> <act moodCode="EVN" classCode="ACT"> <templateId root= "08.09.840.1.253857.10.2022.4.3" /> <id nullFlavor="UNK" /> <code codeSystem="216.840.1.231461.5.6" code="CONC" displayName="Concern" /> < statusCode code="completed" /> <effectiveTime> <low value="20170627 " /> </effectiveTime> <entryRelationship typeCode="SUBJ"> < observation moodCode="EVN" classCode="OBS"> <templateId root= "08.09.840.1.329376.10.22.4.4" /> <id nullFlavor="UNK" /> < code codeSystem="08.09.840.1.455567.6.96" code="972298527" displayName="Diagnosis " /> <statusCode code="completed" /> <value codeSystem="" xsi: type="CD" code="K29.70" displayName="Gastritis, unspecified, without bleeding" / > </observation> </entryRelationship> </act> </entry> <entry typeCode="DRIV"> <act moodCode="EVN" classCode="ACT"> <templateId root= "08.09.840.1.574280.10..4.3" /> <id nullFlavor="UNK" /> <code codeSystem="08.09.840.1.151106.5.6" code="CONC" displayName="Concern" /> < statusCode code="completed" /> <effectiveTime> <low value="20170627 " /> </effectiveTime> <entryRelationship typeCode="SUBJ"> < observation moodCode="EVN" classCode="OBS"> <templateId root= "08.09.840.1.117839.10.22.4.4" /> <id nullFlavor="UNK" /> < code codeSystem="08.09.840.1.915308.6.96" code="921799724" displayName="Diagnosis " /> <statusCode code="completed" /> <value codeSystem="" xsi: type="CD" code="R07.9" displayName="Chest pain, unspecified" /> </ observation> </entryRelationship> </act> </entry> <entry typeCode= "DRIV"> <act moodCode="EVN" classCode="ACT"> <templateId root= "08.09.840.1.859021.10.20.22.4.3" /> <id nullFlavor="UNK" /> <code codeSystem="08.09.840.1.325055.5.6" code="CONC" displayName="Concern" /> < statusCode code="completed" /> <effectiveTime> <low value="20170627 " /> </effectiveTime> <entryRelationship typeCode="SUBJ"> < observation moodCode="EVN" classCode="OBS"> <templateId root= "08.09.840.1.010861.10..22.4.4" /> <id nullFlavor="UNK" /> < code codeSystem="2.840.1.807050.6.96" code="801937940" displayName="Diagnosis " /> <statusCode code="completed" /> <value codeSystem="" xsi: type="CD" code="R47.1" displayName="Dysarthria and anarthria" /> </ observation> </entryRelationship> </act> </entry> <entry typeCode= "DRIV"> <act moodCode="EVN" classCode="ACT"> <templateId root= "08.09.840.1.834639.10..22.4.3" /> <id nullFlavor="UNK" /> <code codeSystem="2.840.1.044032.5.6" code="CONC" displayName="Concern" /> < statusCode code="completed" /> <effectiveTime> <low value="20170627 " /> </effectiveTime> <entryRelationship typeCode="SUBJ"> < observation moodCode="EVN" classCode="OBS"> <templateId root= "08.09.840.1.395065.10..22.4.4" /> <id nullFlavor="UNK" /> < code codeSystem="840.1.755467.6.96" code="920593746" displayName="Diagnosis " /> <statusCode code="completed" /> <value codeSystem="" xsi: type="CD" code="R53.1" displayName="Weakness" /> </observation> </ entryRelationship> </act> </entry> <entry typeCode="DRIV"> <act moodCode ="EVN" classCode="ACT"> <templateId root="08.09.840.1.931012.10.20.22.4.3" / > <id nullFlavor="UNK" /> <code codeSystem="840.1.922664.5.6" code="CONC" displayName="Concern" /> <statusCode code="completed" /> < effectiveTime> <low value="51366094" /> </effectiveTime> < entryRelationship typeCode="SUBJ"> <observation moodCode="EVN" classCode= "OBS"> <templateId root="08.09.840.1.655765.10..22.4.4" /> < id nullFlavor="UNK" /> <code codeSystem="840.1.361808.6.96" code= "807118180" displayName="Diagnosis" /> <statusCode code="completed" /> <value codeSystem="" xsi:type="CD" code="J09.X2" displayName= "Influenza due to identified novel influenza A virus with other respiratory manifestations" /> </observation> </entryRelationship> </act> </ entry> <entry typeCode="DRIV"> <act moodCode="EVN" classCode="ACT"> < templateId root="08.09.840.1.011632.10..4.3" /> <id nullFlavor="UNK" / > <code codeSystem="08.09.840.1.037901.5.6" code="CONC" displayName="Concern " /> <statusCode code="completed" /> <effectiveTime> <low value ="02773672" /> </effectiveTime> <entryRelationship typeCode="SUBJ"> <observation moodCode="EVN" classCode="OBS"> <templateId root= "840.1.624582.04.12.22.4.4" /> <id nullFlavor="UNK" /> < code codeSystem="08.09.840.1.840109.6.96" code="912737367" displayName="Diagnosis " /> <statusCode code="completed" /> <value codeSystem="" xsi: type="CD" code="R05" displayName="Cough" /> </observation> </ entryRelationship> </act> </entry> <entry typeCode="DRIV"> <act moodCode ="EVN" classCode="ACT"> <templateId root="08.09.840.1.988212.10...4.3" / > <id nullFlavor="UNK" /> <code codeSystem="08.09.840.1.250356.5.6" code="CONC" displayName="Concern" /> <statusCode code="completed" /> < effectiveTime> <low value="33347189" /> </effectiveTime> < entryRelationship typeCode="SUBJ"> <observation moodCode="EVN" classCode= "OBS"> <templateId root="08.09.840.1.463580.10..4.4" /> < id nullFlavor="UNK" /> <code codeSystem="216.840.1.197602.6.96" code= "[id number]" displayName="Diagnosis" /> <statusCode code="completed" /> <value codeSystem="" xsi:type="CD" code="M25.512" displayName="Pain in left shoulder" /> </observation> </entryRelationship> </act> </entry> <entry typeCode="DRIV"> <act moodCode="EVN" classCode="ACT"> < templateId root="2.16.840.1.569748.10..22.4.3" /> <id nullFlavor="UNK" / > <code codeSystem="216.840.1.151259.5.6" code="CONC" displayName="Concern " /> <statusCode code="completed" /> <effectiveTime> <low value ="[id number]" /> </effectiveTime> <entryRelationship typeCode="SUBJ"> <observation moodCode="EVN" classCode="OBS"> <templateId root= "216.840.1.688637...4.4" /> <id nullFlavor="UNK" /> < code codeSystem="2.16.840.1.301779.6.96" code="[id number]" displayName="Diagnosis " /> <statusCode code="completed" /> <value codeSystem="" xsi: type="CD" code="Z51.89" displayName="Encounter for other specified aftercare" / > </observation> </entryRelationship> </act> </entry> <entry typeCode="DRIV"> <act moodCode="EVN" classCode="ACT"> <templateId root= "216.840.1.514278.10..22.4.3" /> <id nullFlavor="UNK" /> <code codeSystem="08.09.840.1.969903.5.6" code="CONC" displayName="Concern" /> < statusCode code="completed" /> <effectiveTime> <low value="17349207 " /> </effectiveTime> <entryRelationship typeCode="SUBJ"> < observation moodCode="EVN" classCode="OBS"> <templateId root= "08.09.840.1.134418...4.4" /> <id nullFlavor="UNK" /> < code codeSystem="840.1.528567.6.96" code="091310443" displayName="Diagnosis " /> <statusCode code="completed" /> <value codeSystem="" xsi: type="CD" code="M25.512" displayName="Pain in left shoulder" /> </ observation> </entryRelationship> </act> </entry> <entry typeCode= "DRIV"> <act moodCode="EVN" classCode="ACT"> <templateId root= "08.09.840.1.454699.04.12.22.4.3" /> <id nullFlavor="UNK" /> <code codeSystem="08.09.840.1.765179.5.6" code="CONC" displayName="Concern" /> < statusCode code="completed" /> <effectiveTime> <low value="20170708 " /> </effectiveTime> <entryRelationship typeCode="SUBJ"> < observation moodCode="EVN" classCode="OBS"> <templateId root= "08.09.840.1.568843.04.12.22.4.4" /> <id nullFlavor="UNK" /> < code codeSystem="08.09.840.1.826827.6.96" code="812798382" displayName="Diagnosis " /> <statusCode code="completed" /> <value codeSystem="" xsi: type="CD" code="Z51.89" displayName="Encounter for other specified aftercare" / > </observation> </entryRelationship> </act> </entry> <entry typeCode="DRIV"> <act moodCode="EVN" classCode="ACT"> <templateId root= "216.840.1.129820.10.20.22.4.3" /> <id nullFlavor="UNK" /> <code codeSystem="216.840.1.076128.5.6" code="CONC" displayName="Concern" /> < statusCode code="completed" /> <effectiveTime> <low value="15848511 " /> </effectiveTime> <entryRelationship typeCode="SUBJ"> < observation moodCode="EVN" classCode="OBS"> <templateId root= "08.09.840.1.709802.10.2022.4.4" /> <id nullFlavor="UNK" /> < code codeSystem="216.840.1.359595.6.96" code="923180293" displayName="Diagnosis " /> <statusCode code="completed" /> <value codeSystem="" xsi: type="CD" code="M25.512" displayName="Pain in left shoulder" /> </ observation> </entryRelationship> </act> </entry> <entry typeCode= "DRIV"> <act moodCode="EVN" classCode="ACT"> <templateId root= "08.09.840.1.787360.10.2022.4.3" /> <id nullFlavor="UNK" /> <code codeSystem="2.840.1.594900.5.6" code="CONC" displayName="Concern" /> < statusCode code="completed" /> <effectiveTime> <low value="42046561 " /> </effectiveTime> <entryRelationship typeCode="SUBJ"> < observation moodCode="EVN" classCode="OBS"> <templateId root= "08.09.840.1.953838.10.22.4.4" /> <id nullFlavor="UNK" /> < code codeSystem="840.1.246060.6.96" code="462457711" displayName="Diagnosis " /> <statusCode code="completed" /> <value codeSystem="" xsi: type="CD" code="Z51.89" displayName="Encounter for other specified aftercare" / > </observation> </entryRelationship> </act> </entry> <entry typeCode="DRIV"> <act moodCode="EVN" classCode="ACT"> <templateId root= "08.09.840.1.135512.10..4.3" /> <id nullFlavor="UNK" /> <code codeSystem="08.09.840.1.909835.5.6" code="CONC" displayName="Concern" /> < statusCode code="completed" /> <effectiveTime> <low value="46827020 " /> </effectiveTime> <entryRelationship typeCode="SUBJ"> < observation moodCode="EVN" classCode="OBS"> <templateId root= "08.09.840.1.481657.10.22.4.4" /> <id nullFlavor="UNK" /> < code codeSystem="08.09.840.1.095984.6.96" code="988015310" displayName="Diagnosis " /> <statusCode code="completed" /> <value codeSystem="" xsi: type="CD" code="M25.512" displayName="Pain in left shoulder" /> </ observation> </entryRelationship> </act> </entry> <entry typeCode= "DRIV"> <act moodCode="EVN" classCode="ACT"> <templateId root= "08.09.840.1.247609.10..22.4.3" /> <id nullFlavor="UNK" /> <code codeSystem="08.09.840.1.729334.5.6" code="CONC" displayName="Concern" /> < statusCode code="completed" /> <effectiveTime> <low value="20170719 " /> </effectiveTime> <entryRelationship typeCode="SUBJ"> < observation moodCode="EVN" classCode="OBS"> <templateId root= "08.09.840.1.284835.10..4.4" /> <id nullFlavor="UNK" /> < code codeSystem="2.840.1.260585.6.96" code="187648312" displayName="Diagnosis " /> <statusCode code="completed" /> <value codeSystem="" xsi: type="CD" code="Z51.89" displayName="Encounter for other specified aftercare" / > </observation> </entryRelationship> </act> </entry> <entry typeCode="DRIV"> <act moodCode="EVN" classCode="ACT"> <templateId root= "08.09.840.1.061179.10..4.3" /> <id nullFlavor="UNK" /> <code codeSystem="216.840.1.261284.5.6" code="CONC" displayName="Concern" /> < statusCode code="completed" /> <effectiveTime> <low value="20170719 " /> </effectiveTime> <entryRelationship typeCode="SUBJ"> < observation moodCode="EVN" classCode="OBS"> <templateId root= "08.09.840.1.272387.10.20.22.4.4" /> <id nullFlavor="UNK" /> < code codeSystem="840.1.132643.6.96" code="352857385" displayName="Diagnosis " /> <statusCode code="completed" /> <value codeSystem="" xsi: type="CD" code="J22" displayName="Unspecified acute lower respiratory infection " /> </observation> </entryRelationship> </act> </entry> < entry typeCode="DRIV"> <act moodCode="EVN" classCode="ACT"> <templateId root="08.09.840.1.714879.10.20.22.4.3" /> <id nullFlavor="UNK" /> < code codeSystem="2.840.1.196454.5.6" code="CONC" displayName="Concern" /> <statusCode code="completed" /> <effectiveTime> <low value= "48485648" /> </effectiveTime> <entryRelationship typeCode="SUBJ"> <observation moodCode="EVN" classCode="OBS"> <templateId root= "08.09.840.1.855004.10.20.22.4.4" /> <id nullFlavor="UNK" /> < code codeSystem="08.09.840.1.920958.6.96" code="979468255" displayName="Diagnosis " /> <statusCode code="completed" /> <value codeSystem="" xsi: type="CD" code="R53.83" displayName="Other fatigue" /> </observation> </entryRelationship> </act> </entry> <entry typeCode="DRIV"> <act moodCode="EVN" classCode="ACT"> <templateId root= "840.1.319282.10..22.4.3" /> <id nullFlavor="UNK" /> <code codeSystem="840.1.931745.5.6" code="CONC" displayName="Concern" /> < statusCode code="completed" /> <effectiveTime> <low value="80765180 " /> </effectiveTime> <entryRelationship typeCode="SUBJ"> < observation moodCode="EVN" classCode="OBS"> <templateId root= "840.1.072656.10..4.4" /> <id nullFlavor="UNK" /> < code codeSystem="08.09.840.1.494772.6.96" code="512090889" displayName="Diagnosis " /> <statusCode code="completed" /> <value codeSystem="" xsi: type="CD" code="I10" displayName="Essential (primary) hypertension" /> </ observation> </entryRelationship> </act> </entry> <entry typeCode= "DRIV"> <act moodCode="EVN" classCode="ACT"> <templateId root= "08.09.840.1.241093.10..22.4.3" /> <id nullFlavor="UNK" /> <code codeSystem="840.1.000858.5.6" code="CONC" displayName="Concern" /> < statusCode code="completed" /> <effectiveTime> <low value="10643002 " /> </effectiveTime> <entryRelationship typeCode="SUBJ"> < observation moodCode="EVN" classCode="OBS"> <templateId root= "08.09.840.1.306231.10..22.4.4" /> <id nullFlavor="UNK" /> < code codeSystem="216.840.1.384226.6.96" code="207154414" displayName="Diagnosis " /> <statusCode code="completed" /> <value codeSystem="" xsi: type="CD" code="K29.00" displayName="Acute gastritis without bleeding" /> </observation> </entryRelationship> </act> </entry> <entry typeCode= "DRIV"> <act moodCode="EVN" classCode="ACT"> <templateId root= "16.840.1.130406.10.20.22.4.3" /> <id nullFlavor="UNK" /> <code codeSystem="216.840.1.955168.5.6" code="CONC" displayName="Concern" /> < statusCode code="completed" /> <effectiveTime> <low value="80237083 " /> </effectiveTime> <entryRelationship typeCode="SUBJ"> < observation moodCode="EVN" classCode="OBS"> <templateId root= "08.09.840.1.332557.10..22.4.4" /> <id nullFlavor="UNK" /> < code codeSystem="216.840.1.491243.6.96" code="146928467" displayName="Diagnosis " /> <statusCode code="completed" /> <value codeSystem="" xsi: type="CD" code="R07.9" displayName="Chest pain, unspecified" /> </ observation> </entryRelationship> </act> </entry> <entry typeCode= "DRIV"> <act moodCode="EVN" classCode="ACT"> <templateId root= "16.840.1.414347.10.20.22.4.3" /> <id nullFlavor="UNK" /> <code codeSystem="840.1.642843.5.6" code="CONC" displayName="Concern" /> < statusCode code="completed" /> <effectiveTime> <low value="20170819 " /> </effectiveTime> <entryRelationship typeCode="SUBJ"> < observation moodCode="EVN" classCode="OBS"> <templateId root= "840.1.869709.10..4.4" /> <id nullFlavor="UNK" /> < code codeSystem="840.1.390786.6.96" code="659843053" displayName="Diagnosis " /> <statusCode code="completed" /> <value codeSystem="" xsi: type="CD" code="R10.9" displayName="Unspecified abdominal pain" /> </ observation> </entryRelationship> </act> </entry> <entry typeCode= "DRIV"> <act moodCode="EVN" classCode="ACT"> <templateId root= "840.1.458601.04.12.22.4.3" /> <id nullFlavor="UNK" /> <code codeSystem="840.1.959822.5.6" code="CONC" displayName="Concern" /> < statusCode code="completed" /> <effectiveTime> <low value="20170917 " /> </effectiveTime> <entryRelationship typeCode="SUBJ"> < observation moodCode="EVN" classCode="OBS"> <templateId root= "840.1.498317.04.12.22.4.4" /> <id nullFlavor="UNK" /> < code codeSystem="840.1.107871.6.96" code="598441640" displayName="Diagnosis " /> <statusCode code="completed" /> <value codeSystem="I9" xsi:type="CD" code="379.21" displayName="VitreousDegenerationDetachment" /> </observation> </entryRelationship> </act> </entry> <entry typeCode="DRIV"> <act moodCode="EVN" classCode="ACT"> <templateId root= "2.840.1.110829.10.22.4.3" /> <id nullFlavor="UNK" /> <code codeSystem="2.840.1.323601.5.6" code="CONC" displayName="Concern" /> < statusCode code="completed" /> <effectiveTime> <low value="47045952 " /> </effectiveTime> <entryRelationship typeCode="SUBJ"> < observation moodCode="EVN" classCode="OBS"> <templateId root= "08.09.840.1.529807.10.22.4.4" /> <id nullFlavor="UNK" /> < code codeSystem="2.840.1.700630.6.96" code="160746276" displayName="Diagnosis " /> <statusCode code="completed" /> <value codeSystem="" xsi: type="CD" code="Z12.31" displayName="Encounter for screening mammogram for malignant neoplasm of breast" /> </observation> </entryRelationship > </act> </entry> <entry typeCode="DRIV"> <act moodCode="EVN" classCode= "ACT"> <templateId root="08.09.840.1.075459.10.2022.4.3" /> <id nullFlavor="UNK" /> <code codeSystem="2.840.1.149321.5.6" code="CONC" displayName="Concern" /> <statusCode code="completed" /> < effectiveTime> <low value="20171023" /> </effectiveTime> < entryRelationship typeCode="SUBJ"> <observation moodCode="EVN" classCode= "OBS"> <templateId root="08.09.840.1.933073.10..4.4" /> < id nullFlavor="UNK" /> <code codeSystem="840.1.347787.6.96" code= "622947630" displayName="Diagnosis" /> <statusCode code="completed" /> <value codeSystem="" xsi:type="CD" code="M54.32" displayName="Sciatica , left side" /> </observation> </entryRelationship> </act> </ entry> <entry typeCode="DRIV"> <act moodCode="EVN" classCode="ACT"> < templateId root="840.1.433506.10..4.3" /> <id nullFlavor="UNK" / > <code codeSystem="08.09.840.1.604576.5.6" code="CONC" displayName="Concern " /> <statusCode code="completed" /> <effectiveTime> <low value ="20171023" /> </effectiveTime> <entryRelationship typeCode="SUBJ"> <observation moodCode="EVN" classCode="OBS"> <templateId root= "08.09.840.1.405400.10.22.4.4" /> <id nullFlavor="UNK" /> < code codeSystem="08.09.840.1.976509.6.96" code="449082654" displayName="Diagnosis " /> <statusCode code="completed" /> <value codeSystem="" xsi: type="CD" code="Z51.89" displayName="Encounter for other specified aftercare" / > </observation> </entryRelationship> </act> </entry> <entry typeCode="DRIV"> <act moodCode="EVN" classCode="ACT"> <templateId root= "08.09.840.1.625477.10..22.4.3" /> <id nullFlavor="UNK" /> <code codeSystem="08.09.840.1.254753.5.6" code="CONC" displayName="Concern" /> < statusCode code="completed" /> <effectiveTime> <low value="20171023 " /> </effectiveTime> <entryRelationship typeCode="SUBJ"> < observation moodCode="EVN" classCode="OBS"> <templateId root= "08.09.840.1.977379.10..22.4.4" /> <id nullFlavor="UNK" /> < code codeSystem="2.840.1.686003.6.96" code="910042025" displayName="Diagnosis " /> <statusCode code="completed" /> <value codeSystem="" xsi: type="CD" code="M54.32" displayName="Sciatica, left side" /> </ observation> </entryRelationship> </act> </entry> <entry typeCode= "DRIV"> <act moodCode="EVN" classCode="ACT"> <templateId root= "08.09.840.1.213808.10..4.3" /> <id nullFlavor="UNK" /> <code codeSystem="08.09.840.1.250780.5.6" code="CONC" displayName="Concern" /> < statusCode code="completed" /> <effectiveTime> <low value="20171023 " /> </effectiveTime> <entryRelationship typeCode="SUBJ"> < observation moodCode="EVN" classCode="OBS"> <templateId root= "08.09.840.1.678149.10..22.4.4" /> <id nullFlavor="UNK" /> < code codeSystem="840.1.423061.6.96" code="006427015" displayName="Diagnosis " /> <statusCode code="completed" /> <value codeSystem="" xsi: type="CD" code="Z51.89" displayName="Encounter for other specified aftercare" / > </observation> </entryRelationship> </act> </entry> <entry typeCode="DRIV"> <act moodCode="EVN" classCode="ACT"> <templateId root= "08.09.840.1.281913.10..22.4.3" /> <id nullFlavor="UNK" /> <code codeSystem="840.1.862081.5.6" code="CONC" displayName="Concern" /> < statusCode code="completed" /> <effectiveTime> <low value="85150131 " /> </effectiveTime> <entryRelationship typeCode="SUBJ"> < observation moodCode="EVN" classCode="OBS"> <templateId root= "08.09.840.1.441217.10..22.4.4" /> <id nullFlavor="UNK" /> < code codeSystem="08.09.840.1.466993.6.96" code="966785646" displayName="Diagnosis " /> <statusCode code="completed" /> <value codeSystem="" xsi: type="CD" code="M54.32" displayName="Sciatica, left side" /> </ observation> </entryRelationship> </act> </entry> <entry typeCode= "DRIV"> <act moodCode="EVN" classCode="ACT"> <templateId root= "840.1.607845.10...4.3" /> <id nullFlavor="UNK" /> <code codeSystem="840.1.511010.5.6" code="CONC" displayName="Concern" /> < statusCode code="completed" /> <effectiveTime> <low value="20171023 " /> </effectiveTime> <entryRelationship typeCode="SUBJ"> < observation moodCode="EVN" classCode="OBS"> <templateId root= "840.1.281262...4.4" /> <id nullFlavor="UNK" /> < code codeSystem="840.1.834341.6.96" code="461221287" displayName="Diagnosis " /> <statusCode code="completed" /> <value codeSystem="" xsi: type="CD" code="Z51.89" displayName="Encounter for other specified aftercare" / > </observation> </entryRelationship> </act> </entry> <entry typeCode="DRIV"> <act moodCode="EVN" classCode="ACT"> <templateId root= "08.09.840.1.140706.10...4.3" /> <id nullFlavor="UNK" /> <code codeSystem="840.1.639649.5.6" code="CONC" displayName="Concern" /> < statusCode code="completed" /> <effectiveTime> <low value="20171123 " /> </effectiveTime> <entryRelationship typeCode="SUBJ"> < observation moodCode="EVN" classCode="OBS"> <templateId root= "08.09.840.1.187311.10..4.4" /> <id nullFlavor="UNK" /> < code codeSystem="216.840.1.629348.6.96" code="509075745" displayName="Diagnosis " /> <statusCode code="completed" /> <value codeSystem="I10" xsi:type="CD" code="G47.31" displayName="Primary central sleep apnea" /> </observation> </entryRelationship> </act> </entry> <entry typeCode= "DRIV"> <act moodCode="EVN" classCode="ACT"> <templateId root= "216.840.1.301803.10..4.3" /> <id nullFlavor="UNK" /> <code codeSystem="216.840.1.007583.5.6" code="CONC" displayName="Concern" /> < statusCode code="completed" /> <effectiveTime> <low value="93385746 " /> </effectiveTime> <entryRelationship typeCode="SUBJ"> < observation moodCode="EVN" classCode="OBS"> <templateId root= "216.840.1.995883.10..4.4" /> <id nullFlavor="UNK" /> < code codeSystem="2.16.840.1.266993.6.96" code="985649481" displayName="Diagnosis " /> <statusCode code="completed" /> <value codeSystem="" xsi: type="CD" code="I10" displayName="Essential (primary) hypertension" /> </ observation> </entryRelationship> </act> </entry> <entry typeCode= "DRIV"> <act moodCode="EVN" classCode="ACT"> <templateId root= "216.840.1.052303.10.22.4.3" /> <id nullFlavor="UNK" /> <code codeSystem="840.1.947561.5.6" code="CONC" displayName="Concern" /> < statusCode code="completed" /> <effectiveTime> <low value="27138141 " /> </effectiveTime> <entryRelationship typeCode="SUBJ"> < observation moodCode="EVN" classCode="OBS"> <templateId root= "840.1.647087...4.4" /> <id nullFlavor="UNK" /> < code codeSystem="840.1.728381.6.96" code="750023914" displayName="Diagnosis " /> <statusCode code="completed" /> <value codeSystem="" xsi: type="CD" code="I20.9" displayName="Angina pectoris, unspecified" /> </ observation> </entryRelationship> </act> </entry> <entry typeCode= "DRIV"> <act moodCode="EVN" classCode="ACT"> <templateId root= "840.1.576567.04.12.22.4.3" /> <id nullFlavor="UNK" /> <code codeSystem="840.1.875668.5.6" code="CONC" displayName="Concern" /> < statusCode code="completed" /> <effectiveTime> <low value="79188798 " /> </effectiveTime> <entryRelationship typeCode="SUBJ"> < observation moodCode="EVN" classCode="OBS"> <templateId root= "840.1.931530.04.12.22.4.4" /> <id nullFlavor="UNK" /> < code codeSystem="840.1.642060.6.96" code="843531348" displayName="Diagnosis " /> <statusCode code="completed" /> <value codeSystem="" xsi: type="CD" code="J44.9" displayName="Chronic obstructive pulmonary disease, unspecified" /> </observation> </entryRelationship> </act> </ entry> <entry typeCode="DRIV"> <act moodCode="EVN" classCode="ACT"> < templateId root="216.840.1.147463.10.22.4.3" /> <id nullFlavor="UNK" / > <code codeSystem="216.840.1.514585.5.6" code="CONC" displayName="Concern " /> <statusCode code="completed" /> <effectiveTime> <low value ="67714534" /> </effectiveTime> <entryRelationship typeCode="SUBJ"> <observation moodCode="EVN" classCode="OBS"> <templateId root= "216.840.1.517033.10.22.4.4" /> <id nullFlavor="UNK" /> < code codeSystem="216.840.1.879134.6.96" code="922543387" displayName="Diagnosis " /> <statusCode code="completed" /> <value codeSystem="" xsi: type="CD" code="R06.02" displayName="Shortness of breath" /> </ observation> </entryRelationship> </act> </entry> <entry typeCode= "DRIV"> <act moodCode="EVN" classCode="ACT"> <templateId root= "216.840.1.757854.10.22.4.3" /> <id nullFlavor="UNK" /> <code codeSystem="216.840.1.246632.5.6" code="CONC" displayName="Concern" /> < statusCode code="completed" /> <effectiveTime> <low value="94473925 " /> </effectiveTime> <entryRelationship typeCode="SUBJ"> < observation moodCode="EVN" classCode="OBS"> <templateId root= "08.09.840.1.842451.10.22.4.4" /> <id nullFlavor="UNK" /> < code codeSystem="840.1.298707.6.96" code="849484820" displayName="Diagnosis " /> <statusCode code="completed" /> <value codeSystem="" xsi: type="CD" code="R07.9" displayName="Chest pain, unspecified" /> </ observation> </entryRelationship> </act> </entry> <entry typeCode= "DRIV"> <act moodCode="EVN" classCode="ACT"> <templateId root= "08.09.840.1.055422.10.22.4.3" /> <id nullFlavor="UNK" /> <code codeSystem="08.09.840.1.876463.5.6" code="CONC" displayName="Concern" /> < statusCode code="completed" /> <effectiveTime> <low value="94223310 " /> </effectiveTime> <entryRelationship typeCode="SUBJ"> < observation moodCode="EVN" classCode="OBS"> <templateId root= "08.09.840.1.592857.10.22.4.4" /> <id nullFlavor="UNK" /> < code codeSystem="08.09.840.1.337648.6.96" code="662474433" displayName="Diagnosis " /> <statusCode code="completed" /> <value codeSystem="" xsi: type="CD" code="M54.32" displayName="Sciatica, left side" /> </ observation> </entryRelationship> </act> </entry> <entry typeCode= "DRIV"> <act moodCode="EVN" classCode="ACT"> <templateId root= "08.09.840.1.396606.10.20.22.4.3" /> <id nullFlavor="UNK" /> <code codeSystem="08.09.840.1.018809.5.6" code="CONC" displayName="Concern" /> < statusCode code="completed" /> <effectiveTime> <low value="46518688 " /> </effectiveTime> <entryRelationship typeCode="SUBJ"> < observation moodCode="EVN" classCode="OBS"> <templateId root= "08.09.840.1.811903.10..22.4.4" /> <id nullFlavor="UNK" /> < code codeSystem="2.840.1.682430.6.96" code="153432099" displayName="Diagnosis " /> <statusCode code="completed" /> <value codeSystem="" xsi: type="CD" code="Z51.89" displayName="Encounter for other specified aftercare" / > </observation> </entryRelationship> </act> </entry> <entry typeCode="DRIV"> <act moodCode="EVN" classCode="ACT"> <templateId root= "08.09.840.1.572358.10..22.4.3" /> <id nullFlavor="UNK" /> <code codeSystem="08.09.840.1.557868.5.6" code="CONC" displayName="Concern" /> < statusCode code="completed" /> <effectiveTime> <low value="20171219 " /> </effectiveTime> <entryRelationship typeCode="SUBJ"> < observation moodCode="EVN" classCode="OBS"> <templateId root= "08.09.840.1.226001.10.20.22.4.4" /> <id nullFlavor="UNK" /> < code codeSystem="08.09.840.1.058558.6.96" code="946781672" displayName="Diagnosis " /> <statusCode code="completed" /> <value codeSystem="" xsi: type="CD" code="N89.8" displayName="Other specified noninflammatory disorders of vagina" /> </observation> </entryRelationship> </act> </entry > <entry typeCode="DRIV"> <act moodCode="EVN" classCode="ACT"> < templateId root="08.09.840.1.269341.10.20.22.4.3" /> <id nullFlavor="UNK" / > <code codeSystem="2.840.1.386046.5.6" code="CONC" displayName="Concern " /> <statusCode code="completed" /> <effectiveTime> <low value ="44827104" /> </effectiveTime> <entryRelationship typeCode="SUBJ"> <observation moodCode="EVN" classCode="OBS"> <templateId root= "08.09.840.1.337855.10.20.22.4.4" /> <id nullFlavor="UNK" /> < code codeSystem="08.09.840.1.467533.6.96" code="463384779" displayName="Diagnosis " /> <statusCode code="completed" /> <value codeSystem="" xsi: type="CD" code="I10" displayName="Essential (primary) hypertension" /> </ observation> </entryRelationship> </act> </entry> <entry typeCode= "DRIV"> <act moodCode="EVN" classCode="ACT"> <templateId root= "840.1.207324.10..4.3" /> <id nullFlavor="UNK" /> <code codeSystem="840.1.071008.5.6" code="CONC" displayName="Concern" /> < statusCode code="completed" /> <effectiveTime> <low value="20171230 " /> </effectiveTime> <entryRelationship typeCode="SUBJ"> < observation moodCode="EVN" classCode="OBS"> <templateId root= "840.1.785237...4.4" /> <id nullFlavor="UNK" /> < code codeSystem="840.1.678020.6.96" code="896696567" displayName="Diagnosis " /> <statusCode code="completed" /> <value codeSystem="" xsi: type="CD" code="J44.9" displayName="Chronic obstructive pulmonary disease, unspecified" /> </observation> </entryRelationship> </act> </ entry> <entry typeCode="DRIV"> <act moodCode="EVN" classCode="ACT"> < templateId root="840.1.658264.10...4.3" /> <id nullFlavor="UNK" / > <code codeSystem="840.1.633163.5.6" code="CONC" displayName="Concern " /> <statusCode code="completed" /> <effectiveTime> <low value ="[id number]" /> </effectiveTime> <entryRelationship typeCode="SUBJ"> <observation moodCode="EVN" classCode="OBS"> <templateId root= "840.1.725165.04.12.22.4.4" /> <id nullFlavor="UNK" /> < code codeSystem="216.840.1.190058.6.96" code="[id number]" displayName="Diagnosis " /> <statusCode code="completed" /> <value codeSystem="" xsi: type="CD" code="R07.89" displayName="Other chest pain" /> </observation> </entryRelationship> </act> </entry> <entry typeCode="DRIV"> <act moodCode="EVN" classCode="ACT"> <templateId root= "216.840.1.983112.04.12.22.4.3" /> <id nullFlavor="UNK" /> <code codeSystem="216.840.1.204778.5.6" code="CONC" displayName="Concern" /> < statusCode code="completed" /> <effectiveTime> <low value="[id number] " /> </effectiveTime> <entryRelationship typeCode="SUBJ"> < observation moodCode="EVN" classCode="OBS"> <templateId root= "16.840.1.180871.04.12.22.4.4" /> <id nullFlavor="UNK" /> < code codeSystem="216.840.1.351315.6.96" code="[id number]" displayName="Diagnosis " /> <statusCode code="completed" /> <value codeSystem="" xsi: type="CD" code="R30.9" displayName="Painful micturition, unspecified" /> </observation> </entryRelationship> </act> </entry> <entry typeCode= "DRIV"> <act moodCode="EVN" classCode="ACT"> <templateId root= "216.840.1.141411.04.12.22.4.3" /> <id nullFlavor="UNK" /> <code codeSystem="840.1.964997.5.6" code="CONC" displayName="Concern" /> < statusCode code="completed" /> <effectiveTime> <low value="91107825 " /> </effectiveTime> <entryRelationship typeCode="SUBJ"> < observation moodCode="EVN" classCode="OBS"> <templateId root= "840.1.614571.04.12.224.4" /> <id nullFlavor="UNK" /> < code codeSystem="840.1.229537.6.96" code="251418995" displayName="Diagnosis " /> <statusCode code="completed" /> <value codeSystem="" xsi: type="CD" code="I10" displayName="Essential (primary) hypertension" /> </ observation> </entryRelationship> </act> </entry> <entry typeCode= "DRIV"> <act moodCode="EVN" classCode="ACT"> <templateId root= "840.1.108734.04.12.224.3" /> <id nullFlavor="UNK" /> <code codeSystem="840.1.243318.5.6" code="CONC" displayName="Concern" /> < statusCode code="completed" /> <effectiveTime> <low value="26905603 " /> </effectiveTime> <entryRelationship typeCode="SUBJ"> < observation moodCode="EVN" classCode="OBS"> <templateId root= "08.09.840.1.662513.04.12.22.4.4" /> <id nullFlavor="UNK" /> < code codeSystem="08.09.840.1.676873.6.96" code="828361510" displayName="Diagnosis " /> <statusCode code="completed" /> <value codeSystem="" xsi: type="CD" code="K21.9" displayName="Gastro-esophageal reflux disease without esophagitis" /> </observation> </entryRelationship> </act> </ entry> <entry typeCode="DRIV"> <act moodCode="EVN" classCode="ACT"> < templateId root="216.840.1.239575.10..22.4.3" /> <id nullFlavor="UNK" / > <code codeSystem="216.840.1.438818.5.6" code="CONC" displayName="Concern " /> <statusCode code="completed" /> <effectiveTime> <low value ="19656131" /> </effectiveTime> <entryRelationship typeCode="SUBJ"> <observation moodCode="EVN" classCode="OBS"> <templateId root= "08.09.840.1.203686.10..22.4.4" /> <id nullFlavor="UNK" /> < code codeSystem="2.840.1.616252.6.96" code="532647669" displayName="Diagnosis " /> <statusCode code="completed" /> <value codeSystem="" xsi: type="CD" code="N39.0" displayName="Urinary tract infection, site not specified " /> </observation> </entryRelationship> </act> </entry> < entry typeCode="DRIV"> <act moodCode="EVN" classCode="ACT"> <templateId root="08.09.840.1.623672.10..22.4.3" /> <id nullFlavor="UNK" /> < code codeSystem="216.840.1.052653.5.6" code="CONC" displayName="Concern" /> <statusCode code="completed" /> <effectiveTime> <low value= "20180115" /> </effectiveTime> <entryRelationship typeCode="SUBJ"> <observation moodCode="EVN" classCode="OBS"> <templateId root= "840.1.481062.10..4.4" /> <id nullFlavor="UNK" /> < code codeSystem="840.1.682490.6.96" code="282186377" displayName="Diagnosis " /> <statusCode code="completed" /> <value codeSystem="" xsi: type="CD" code="R10.32" displayName="Left lower quadrant pain" /> </ observation> </entryRelationship> </act> </entry> <entry typeCode= "DRIV"> <act moodCode="EVN" classCode="ACT"> <templateId root= "840.1.504762.10..4.3" /> <id nullFlavor="UNK" /> <code codeSystem="840.1.628468.5.6" code="CONC" displayName="Concern" /> < statusCode code="completed" /> <effectiveTime> <low value="20180115 " /> </effectiveTime> <entryRelationship typeCode="SUBJ"> < observation moodCode="EVN" classCode="OBS"> <templateId root= "840.1.817001.10..4.4" /> <id nullFlavor="UNK" /> < code codeSystem="08.09.840.1.266011.6.96" code="897016214" displayName="Diagnosis " /> <statusCode code="completed" /> <value codeSystem="" xsi: type="CD" code="I10" displayName="Essential (primary) hypertension" /> </ observation> </entryRelationship> </act> </entry> <entry typeCode= "DRIV"> <act moodCode="EVN" classCode="ACT"> <templateId root= "08.09.840.1.985144.10.20.22.4.3" /> <id nullFlavor="UNK" /> <code codeSystem="08.09.840.1.676776.5.6" code="CONC" displayName="Concern" /> < statusCode code="completed" /> <effectiveTime> <low value="20180115 " /> </effectiveTime> <entryRelationship typeCode="SUBJ"> < observation moodCode="EVN" classCode="OBS"> <templateId root= "08.09.840.1.912225.10...4.4" /> <id nullFlavor="UNK" /> < code codeSystem="2.840.1.256587.6.96" code="759681664" displayName="Diagnosis " /> <statusCode code="completed" /> <value codeSystem="" xsi: type="CD" code="K21.9" displayName="Gastro-esophageal reflux disease without esophagitis" /> </observation> </entryRelationship> </act> </ entry> <entry typeCode="DRIV"> <act moodCode="EVN" classCode="ACT"> < templateId root="08.09.840.1.614539.10..22.4.3" /> <id nullFlavor="UNK" / > <code codeSystem="08.09.840.1.542866.5.6" code="CONC" displayName="Concern " /> <statusCode code="completed" /> <effectiveTime> <low value ="20180115" /> </effectiveTime> <entryRelationship typeCode="SUBJ"> <observation moodCode="EVN" classCode="OBS"> <templateId root= "08.09.840.1.454976.10.20.22.4.4" /> <id nullFlavor="UNK" /> < code codeSystem="840.1.509844.6.96" code="124440649" displayName="Diagnosis " /> <statusCode code="completed" /> <value codeSystem="" xsi: type="CD" code="N39.0" displayName="Urinary tract infection, site not specified " /> </observation> </entryRelationship> </act> </entry> < entry typeCode="DRIV"> <act moodCode="EVN" classCode="ACT"> <templateId root="08.09.840.1.680705.10.20.22.4.3" /> <id nullFlavor="UNK" /> < code codeSystem="08.09.840.1.274873.5.6" code="CONC" displayName="Concern" /> <statusCode code="completed" /> <effectiveTime> <low value= "63497808" /> </effectiveTime> <entryRelationship typeCode="SUBJ"> <observation moodCode="EVN" classCode="OBS"> <templateId root= "08.09.840.1.251292.10.20.22.4.4" /> <id nullFlavor="UNK" /> < code codeSystem="08.09.840.1.096042.6.96" code="228745138" displayName="Diagnosis " /> <statusCode code="completed" /> <value codeSystem="" xsi: type="CD" code="R10.32" displayName="Left lower quadrant pain" /> </ observation> </entryRelationship> </act> </entry> <entry typeCode= "DRIV"> <act moodCode="EVN" classCode="ACT"> <templateId root= "840.1.728213.10..4.3" /> <id nullFlavor="UNK" /> <code codeSystem="840.1.384824.5.6" code="CONC" displayName="Concern" /> < statusCode code="completed" /> <effectiveTime> <low value="20180115 " /> </effectiveTime> <entryRelationship typeCode="SUBJ"> < observation moodCode="EVN" classCode="OBS"> <templateId root= "840.1.656857.04.12.22.4.4" /> <id nullFlavor="UNK" /> < code codeSystem="840.1.732257.6.96" code="574289063" displayName="Diagnosis " /> <statusCode code="completed" /> <value codeSystem="" xsi: type="CD" code="I10" displayName="Essential (primary) hypertension" /> </ observation> </entryRelationship> </act> </entry> <entry typeCode= "DRIV"> <act moodCode="EVN" classCode="ACT"> <templateId root= "840.1.990469.10..4.3" /> <id nullFlavor="UNK" /> <code codeSystem="840.1.063993.5.6" code="CONC" displayName="Concern" /> < statusCode code="completed" /> <effectiveTime> <low value="20180115 " /> </effectiveTime> <entryRelationship typeCode="SUBJ"> < observation moodCode="EVN" classCode="OBS"> <templateId root= "840.1.176268.04.12.22.4.4" /> <id nullFlavor="UNK" /> < code codeSystem="216.840.1.754465.6.96" code="518917095" displayName="Diagnosis " /> <statusCode code="completed" /> <value codeSystem="" xsi: type="CD" code="J44.9" displayName="Chronic obstructive pulmonary disease, unspecified" /> </observation> </entryRelationship> </act> </ entry> <entry typeCode="DRIV"> <act moodCode="EVN" classCode="ACT"> < templateId root="216.840.1.799405.04.12.22.4.3" /> <id nullFlavor="UNK" / > <code codeSystem="216.840.1.993558.5.6" code="CONC" displayName="Concern " /> <statusCode code="completed" /> <effectiveTime> <low value ="71819161" /> </effectiveTime> <entryRelationship typeCode="SUBJ"> <observation moodCode="EVN" classCode="OBS"> <templateId root= "16.840.1.591918.04.12.22.4.4" /> <id nullFlavor="UNK" /> < code codeSystem="216.840.1.309740.6.96" code="630274960" displayName="Diagnosis " /> <statusCode code="completed" /> <value codeSystem="" xsi: type="CD" code="K21.9" displayName="Gastro-esophageal reflux disease without esophagitis" /> </observation> </entryRelationship> </act> </ entry> <entry typeCode="DRIV"> <act moodCode="EVN" classCode="ACT"> < templateId root="216.840.1.099886.04.12.22.4.3" /> <id nullFlavor="UNK" / > <code codeSystem="08.09.840.1.123680.5.6" code="CONC" displayName="Concern " /> <statusCode code="completed" /> <effectiveTime> <low value ="55472724" /> </effectiveTime> <entryRelationship typeCode="SUBJ"> <observation moodCode="EVN" classCode="OBS"> <templateId root= "840.1.912680.04.12.224.4" /> <id nullFlavor="UNK" /> < code codeSystem="08.09.840.1.319457.6.96" code="835732758" displayName="Diagnosis " /> <statusCode code="completed" /> <value codeSystem="" xsi: type="CD" code="R10.32" displayName="Left lower quadrant pain" /> </ observation> </entryRelationship> </act> </entry> <entry typeCode= "DRIV"> <act moodCode="EVN" classCode="ACT"> <templateId root= "08.09.840.1.384441.04.12.224.3" /> <id nullFlavor="UNK" /> <code codeSystem="08.09.840.1.441998.5.6" code="CONC" displayName="Concern" /> < statusCode code="completed" /> <effectiveTime> <low value="20180128 " /> </effectiveTime> <entryRelationship typeCode="SUBJ"> < observation moodCode="EVN" classCode="OBS"> <templateId root= "08.09.840.1.683509.04.12.224.4" /> <id nullFlavor="UNK" /> < code codeSystem="08.09.840.1.213420.6.96" code="221193482" displayName="Diagnosis " /> <statusCode code="completed" /> <value codeSystem="" xsi: type="CD" code="I10" displayName="Essential (primary) hypertension" /> </ observation> </entryRelationship> </act> </entry></section> < section> <templateId root="2.16.840.1.641310.10.20.22.2.7" /> <templateId root ="2.16.840.1.699090.10.20.22.2.7.1" /> <code codeSystemName="LOINC" codeSystem= "2.16.840.1.066678.6.1" code="88175-9" displayName="History of Procedures" /> < title>Procedures</title> <text> <table> <thead> <tr> < th>Code</th> <th>Description</th> <th>Performed By</th> <th>Performed On</th> </tr> </thead> <tbody> <tr> <td> <content ID="proc_code_5138">20574</content> </ td> <td> <content ID="proc_desc5138">ROUTINE VENIPUNCTURE</ content> </td> <td>JACOB LANDRUM DO</td> <td>02/2011</td> </tr> <tr> <td> <content ID="proc _code_5140">19996</content> </td> <td> <content ID= "proc_desc5140">COMPREHEN METABOLIC PANEL</content> </td> <td> JACOB LANDRUM DO</td> <td>05/02/2011</td> </tr> <tr> <td> <content ID="proc_code_5143">31878</content> </td> <td> <content ID="proc_desc5143">URINALYSIS, AUTO W/ SCOPE</content> </td> <td>JACOB LANDRUM DO</td> < td>05/02/2011</td> </tr> <tr> <td> <content ID ="proc_code_5142">71127</content> </td> <td> < content ID="proc_desc5142">GLYCOSYLATED HEMOGLOBIN TEST</content> </td > <td>JACOB LANDRUM DO</td> <td>05/02/2011</td> </ tr> <tr> <td> <content ID="proc_code_5141">81650</ content> </td> <td> <content ID="proc_desc5141"> ASSAY THYROID STIM HORMONE</content> </td> <td>JACOB LANDRUM DO</td> <td>05/02/2011</td> </tr> <tr> < td> <content ID="proc_code_5139">75125</content> </td> <td> <content ID="proc_desc5139">COMPLETE CBC W/AUTO DIFF WBC</ content> </td> <td>JACOB LANDRUM DO</td> <td>02/2011</td> </tr> <tr> <td> <content ID="proc _code_5130">89675</content> </td> <td> <content ID= "proc_desc5130">ROUTINE VENIPUNCTURE</content> </td> <td> ARNOLDO WINSTON MD</td> <td>07/26/2011</td> </tr> <tr> <td> <content ID="proc_code_5131">46222</content> </td> <td> <content ID="proc_desc5131">CHEST X-RAY</ content> </td> <td>ARNOLDO WINSTON MD</td> < td>07/26/2011</td> </tr> <tr> <td> <content ID ="proc_code_5129">69199</content> </td> <td> < content ID="proc_desc5129">COMPREHEN METABOLIC PANEL</content> </td> <td>ARNOLDO WINSTON MD</td> <td>07/26/2011</td> </tr> <tr> <td> <content ID="proc_code_5128">05435</ content> </td> <td> <content ID="proc_desc5128"> COMPLETE CBC W/AUTO DIFF WBC</content> </td> <td>ARNOLDO WINSTON MD</td> <td>07/26/2011</td> </tr> <tr> <td> <content ID="proc_code_5135">16239</content> </td> <td> <content ID="proc_desc5135">ELECTROCARDIOGRAM, TRACING< /content> </td> <td>ARNOLDO WINSTON MD</td> < td>07/26/2011</td> </tr> <tr> <td> <content ID ="proc_code_5132">57370</content> </td> <td> < content ID="proc_desc5132">THER/PROPH/DIAG INJ, SC/IM</content> </td> <td>ARNOLDO WINSTON MD</td> <td>07/26/2011</td> </tr> <tr> <td> <content ID="proc_code_5133">69432< /content> </td> <td> <content ID="proc_desc5133"> EMERGENCY DEPT VISIT</content> </td> <td>ARNOLDO WINSTON MD</td> <td>07/26/2011</td> </tr> <tr> <td> <content ID="proc_code_5134">J1885</content> </td> <td> <content ID="proc_desc5134">KETOROLAC TROMETHAMINE INJ< /content> </td> <td>ARNOLDO WINSTON MD</td> < td>07/26/2011</td> </tr> <tr> <td> <content ID ="proc_code_5112">49736</content> </td> <td> < content ID="proc_desc5112">ROUTINE VENIPUNCTURE</content> </td> <td>JACOB LANDRUM DO</td> <td>08/07/2011</td> </tr> <tr> <td> <content ID="proc_code_5113">97768</content> </td> <td> <content ID="proc_desc5113">CHEST X-RAY</ content> </td> <td>JACOB LANDRUM DO</td> <td></td> </tr> <tr> <td> <content ID="proc _code_5111">73461</content> </td> <td> <content ID= "proc_desc5111">COMPREHEN METABOLIC PANEL</content> </td> <td> LUCITAJACOB Cee DO</td> <td>08/07/2011</td> </tr> <tr> <td> <content ID="proc_code_5110">24480</content> </td> <td> <content ID="proc_desc5110">COMPLETE CBC W/AUTO DIFF WBC</content> </td> <td>LUCITAJACOB Cee DO</td> <td>08/07/2011</td> </tr> <tr> <td> < content ID="proc_code_5120">79577</content> </td> <td> <content ID="proc_desc5120">THER/PROPH/DIAG IV INF, INIT</content> </td> <td>LUCITAJACOB Cee DO</td> <td>08/07/2011</td> </tr> <tr> <td> <content ID="proc_code_5121"> 21723</content> </td> <td> <content ID="proc_ sjqy2339">THER/PROPH/DIAG IV INF ADDON</content> </td> <td> LUCITA DO, JACOB Albarran</td> <td>08/07/2011</td> </tr> <tr> <td> <content ID="proc_code_5126">03042</content> </td> <td> <content ID="proc_desc5126">THER/PROPH/DIAG INJ, SC/IM</content> </td> <td>LUCITA DO, JACOB Albarran</td> < td>08/07/2011</td> </tr> <tr> <td> <content ID ="proc_code_5123">08501</content> </td> <td> < content ID="proc_desc5123">TX/PRO/DX INJ NEW DRUG ADDON</content> </td > <td>LUCITA DO, JACOB Albarran</td> <td>08/07/2011</td> </ tr> <tr> <td> <content ID="proc_code_5127">G0378</ content> </td> <td> <content ID="proc_desc5127"> HOSPITAL OBSERVATION PER HR</content> </td> <td>LUCITA DO, JACOB Albarran</td> <td>08/07/2011</td> </tr> <tr> < td> <content ID="proc_code_5116">J1200</content> </td> <td> <content ID="proc_desc5116">BENADRYL 50</content> </td> <td>LUCITA DO, JACOB Deion</td> <td>08/07/2011</td> </tr> <tr> <td> <content ID="proc_code_5114">J1956< /content> </td> <td> <content ID="proc_desc5114"> LEVAQUIN IV 500MG</content> </td> <td>LUCITA DO, JACOB Albarran</td > <td>08/07/2011</td> </tr> <tr> <td> <content ID="proc_code_5115">J2930</content> </td> <td> <content ID="proc_desc5115">METHYLPREDNISOLONE INJECTION</content> </td> <td>LUCITA DO, JACOB Deion</td> <td>08/07/2011</td> </tr> <tr> <td> <content ID="proc_code_5122"> 40422</content> </td> <td> <content ID="proc_ vwsg5938">THER/PROPH/DIAG IV INF ADDON</content> </td> <td> LUCITA DO, JACOB Deion</td> <td>08/08/2011</td> </tr> <tr> <td> <content ID="proc_code_5124">18980</content> </td> <td> <content ID="proc_desc5124">TX/PRO/DX INJ NEW DRUG ADDON</content> </td> <td>LUCITA DO, JACOB Deion</td> <td>08/08/2011</td> </tr> <tr> <td> < content ID="proc_code_5125">07305</content> </td> <td> <content ID="proc_desc5125">TX/PRO/DX INJ NEW DRUG REGISTERED VASCULAR TECHNOLOGIST (RVT)</content> </td> <td>LUCITA DOJACOB</td> <td>08/08/2011</td> </tr> <tr> <td> <content ID="proc_code_5119">J1200< /content> </td> <td> <content ID="proc_desc5119"> BENADRYL 50</content> </td> <td>LUCITA DO JACOB Deion</td> <td>08/08/2011</td> </tr> <tr> <td> < content ID="proc_code_5117">J1956</content> </td> <td> <content ID="proc_desc5117">LEVAQUIN IV 500MG</content> </td> <td>LUCITA DOJACOB W</td> <td>08/08/2011</td> </tr> <tr> <td> <content ID="proc_code_5118">J2930</content > </td> <td> <content ID="proc_desc5118"> METHYLPREDNISOLONE INJECTION</content> </td> <td>JACOB LANDRUM DO W</td> <td>08/08/2011</td> </tr> <tr> < td> <content ID="proc_code_5108">62578</content> </td> <td> <content ID="proc_desc5108">URINALYSIS, AUTO W/SCOPE</ content> </td> <td>ADITI GUILLEN</td> <td>2011</td> </tr> <tr> <td> <content ID="proc_ code_5109">37436</content> </td> <td> <content ID= "proc_desc5109">EMERGENCY DEPT VISIT</content> </td> <td> ADITI GUILLEN</td> <td>09/25/2011</td> </tr> <tr> <td> <content ID="proc_code_5107">A9270</content> </ td> <td> <content ID="proc_desc5107">Non-covered item or service</content> </td> <td>ADITI GUILLEN</td> < td>09/25/2011</td> </tr> <tr> <td> <content ID ="proc_code_5102">22414</content> </td> <td> < content ID="proc_desc5102">ROUTINE VENIPUNCTURE</content> </td> <td>KEVYN BALDWIN MD</td> <td>10/04/2011</td> </tr> <tr> <td> <content ID="proc_code_5104">43459</content> </td> <td> <content ID="proc_desc5104">CHEST X-RAY</ content> </td> <td>KEVYN BALDWIN MD</td> <td>2011</td> </tr> <tr> <td> <content ID="proc_ code_5098">14152</content> </td> <td> <content ID= "proc_desc5098">COMPREHEN METABOLIC PANEL</content> </td> <td> KEVYN BALDWIN MD</td> <td>10/04/2011</td> </tr> <tr> <td> <content ID="proc_code_5096">94218</content> </ td> <td> <content ID="proc_desc5096">ASSAY OF CK (CPK)</ content> </td> <td>KEVYN BALDWIN MD</td> <td>2011</td> </tr> <tr> <td> <content ID="proc_ code_5095">33829</content> </td> <td> <content ID= "proc_desc5095">CREATINE, MB FRACTION</content> </td> <td> KEVYN BALDWIN MD</td> <td>10/04/2011</td> </tr> <tr> <td> <content ID="proc_code_5097">27259</content> </ td> <td> <content ID="proc_desc5097">ASSAY OF TROPONIN, QUANT</content> </td> <td>KEVYN BALDWIN MD</td> <td >10/04/2011</td> </tr> <tr> <td> <content ID= "proc_code_5101">43079</content> </td> <td> < content ID="proc_desc5101">COMPLETE CBC W/AUTO DIFF WBC</content> </td > <td>KEVYN BALDWIN MD</td> <td>10/04/2011</td> </tr > <tr> <td> <content ID="proc_code_5099">68788</ content> </td> <td> <content ID="proc_desc5099"> PROTHROMBIN TIME</content> </td> <td>KEVYN BALDWIN MD</td> <td>10/04/2011</td> </tr> <tr> <td> < content ID="proc_code_5100">75350</content> </td> <td> <content ID="proc_desc5100">THROMBOPLASTIN TIME, PARTIAL</content> </td> <td>KEVYN BALDWIN MD</td> <td>10/04/2011</td> </tr> <tr> <td> <content ID="proc_code_5103">13210< /content> </td> <td> <content ID="proc_desc5103"> HELICOBACTER PYLORI</content> </td> <td>KEVYN BALDWIN MD</td > <td>10/04/2011</td> </tr> <tr> <td> <content ID="proc_code_5106">89110</content> </td> <td> <content ID="proc_desc5106">ELECTROCARDIOGRAM, TRACING</content> </td> <td>KEVYN BALDWIN MD</td> <td>10/04/2011</td> </tr> <tr> <td> <content ID="proc_code_5105">33848 </content> </td> <td> <content ID="proc_desc5105"> EMERGENCY DEPT VISIT</content> </td> <td>KEVYN BALDWIN MD</ td> <td>10/04/2011</td> </tr> <tr> <td> <content ID="proc_code_5094">A9270</content> </td> <td> <content ID="proc_desc5094">Non-covered item or service</content> </td> <td>KEVYN BALDWIN MD</td> <td>10/04/2011</td> </tr> <tr> <td> <content ID="proc_code_17652"> 86849</content> </td> <td> <content ID="proc_ ytjc82516">Est PatientEye Exam Comprehensive</content> </td> <td>Ramu Jorgensen W</td> <td>09/17/2017</td> </tr> < tr> <td> <content ID="proc_code_17653">74403</content> </td> <td> <content ID="proc_desc17653">Services Refraction</content> </td> <td>Ramu Jorgensen</td> <td>09/17/2017</td> </tr> <tr> <td> < content ID="proc_code_536241">45067</content> </td> <td> <content ID="proc_desc536241">Polysomnography;sleep Staging W 4ey</ content> </td> <td>Kwadwo Jones Enrico</td> <td>2017</td> </tr> </tbody> </table> </text> <entry> < procedure moodCode="EVN" classCode="PROC"> <templateId root= "2.16.840.1.178303.10.20.22.4.14" /> <id nullFlavor="NA" /> <code codeSystem="C4" code="73320" displayName="ROUTINE VENIPUNCTURE"> < originalText> <reference value="#proc_code_5138" /> </ originalText> </code> <text> <reference value="#proc_desc5138" /> </text> <statusCode code="completed" /> <effectiveTime value= "20110502" /> </procedure> </entry> <entry> <procedure moodCode="EVN" classCode="PROC"> <templateId root="2.16.840.1.820813.22.4.14" /> <id nullFlavor="NA" /> <code codeSystem="C4" code="19672" displayName= "COMPREHEN METABOLIC PANEL"> <originalText> <reference value="# proc_code_5140" /> </originalText> </code> <text> < reference value="#proc_desc5140" /> </text> <statusCode code= "completed" /> <effectiveTime value="20110502" /> </procedure> </entry > <entry> <procedure moodCode="EVN" classCode="PROC"> <templateId root= "08.09.840.1.899432.04.12.224.14" /> <id nullFlavor="NA" /> <code codeSystem="C4" code="55271" displayName="URINALYSIS, AUTO W/SCOPE"> < originalText> <reference value="#proc_code_5143" /> </ originalText> </code> <text> <reference value="#proc_desc5143" /> </text> <statusCode code="completed" /> <effectiveTime value= "20110502" /> </procedure> </entry> <entry> <procedure moodCode="EVN" classCode="PROC"> <templateId root="[id number]" /> <id nullFlavor="NA" /> <code codeSystem="C4" code="96195" displayName= "GLYCOSYLATED HEMOGLOBIN TEST"> <originalText> <reference value= "#proc_code_5142" /> </originalText> </code> <text> < reference value="#proc_desc5142" /> </text> <statusCode code= "completed" /> <effectiveTime value="20110502" /> </procedure> </entry > <entry> <procedure moodCode="EVN" classCode="PROC"> <templateId root= "[id number]" /> <id nullFlavor="NA" /> <code codeSystem="C4" code="41256" displayName="ASSAY THYROID STIM HORMONE"> < originalText> <reference value="#proc_code_5141" /> </ originalText> </code> <text> <reference value="#proc_desc5141" /> </text> <statusCode code="completed" /> <effectiveTime value= "20110502" /> </procedure> </entry> <entry> <procedure moodCode="EVN" classCode="PROC"> <templateId root="840.1.710778.04.12.224.14" /> <id nullFlavor="NA" /> <code codeSystem="C4" code="06408" displayName= "COMPLETE CBC W/AUTO DIFF WBC"> <originalText> <reference value= "#proc_code_5139" /> </originalText> </code> <text> < reference value="#proc_desc5139" /> </text> <statusCode code= "completed" /> <effectiveTime value="20110502" /> </procedure> </entry > <entry> <procedure moodCode="EVN" classCode="PROC"> <templateId root= "[id number]24.14" /> <id nullFlavor="NA" /> <code codeSystem="C4" code="12938" displayName="ROUTINE VENIPUNCTURE"> < originalText> <reference value="#proc_code_5130" /> </ originalText> </code> <text> <reference value="#proc_desc5130" /> </text> <statusCode code="completed" /> <effectiveTime value= "20110726" /> </procedure> </entry> <entry> <procedure moodCode="EVN" classCode="PROC"> <templateId root="840.1.797444.104.14" /> <id nullFlavor="NA" /> <code codeSystem="C4" code="65788" displayName= "CHEST X-RAY"> <originalText> <reference value="#proc_code_5131 " /> </originalText> </code> <text> <reference value="# proc_desc5131" /> </text> <statusCode code="completed" /> < effectiveTime value="20110726" /> </procedure> </entry> <entry> < procedure moodCode="EVN" classCode="PROC"> <templateId root= "840.1.417220.104.14" /> <id nullFlavor="NA" /> <code codeSystem="C4" code="45933" displayName="COMPREHEN METABOLIC PANEL"> < originalText> <reference value="#proc_code_5129" /> </ originalText> </code> <text> <reference value="#proc_desc5129" /> </text> <statusCode code="completed" /> <effectiveTime value= "20110726" /> </procedure> </entry> <entry> <procedure moodCode="EVN" classCode="PROC"> <templateId root="840.1.139919.10.4.14" /> <id nullFlavor="NA" /> <code codeSystem="C4" code="49225" displayName= "COMPLETE CBC W/AUTO DIFF WBC"> <originalText> <reference value= "#proc_code_5128" /> </originalText> </code> <text> < reference value="#proc_desc5128" /> </text> <statusCode code= "completed" /> <effectiveTime value="[id number]" /> </procedure> </entry > <entry> <procedure moodCode="EVN" classCode="PROC"> <templateId root= "840.1.694273.04.12.224.14" /> <id nullFlavor="NA" /> <code codeSystem="C4" code="66691" displayName="ELECTROCARDIOGRAM, TRACING"> < originalText> <reference value="#proc_code_5135" /> </ originalText> </code> <text> <reference value="#proc_desc5135" /> </text> <statusCode code="completed" /> <effectiveTime value= "20110726" /> </procedure> </entry> <entry> <procedure moodCode="EVN" classCode="PROC"> <templateId root="840.1.357247.04.12.224.14" /> <id nullFlavor="NA" /> <code codeSystem="C4" code="21604" displayName= "THER/PROPH/DIAG INJ, SC/IM"> <originalText> <reference value="# proc_code_5132" /> </originalText> </code> <text> < reference value="#proc_desc5132" /> </text> <statusCode code= "completed" /> <effectiveTime value="20110726" /> </procedure> </entry > <entry> <procedure moodCode="EVN" classCode="PROC"> <templateId root= "08.09.840.1.761132.10.224.14" /> <id nullFlavor="NA" /> <code codeSystem="C4" code="40789" displayName="EMERGENCY DEPT VISIT"> < originalText> <reference value="#proc_code_5133" /> </ originalText> </code> <text> <reference value="#proc_desc5133" /> </text> <statusCode code="completed" /> <effectiveTime value= "20110726" /> </procedure> </entry> <entry> <procedure moodCode="EVN" classCode="PROC"> <templateId root="08.09.840.1.403866.04.12.224.14" /> <id nullFlavor="NA" /> <code codeSystem="C4" code="J1885" displayName= "KETOROLAC TROMETHAMINE INJ"> <originalText> <reference value="# proc_code_5134" /> </originalText> </code> <text> < reference value="#proc_desc5134" /> </text> <statusCode code= "completed" /> <effectiveTime value="20110726" /> </procedure> </entry > <entry> <procedure moodCode="EVN" classCode="PROC"> <templateId root= "08.09.840.1.242563.1022.4.14" /> <id nullFlavor="NA" /> <code codeSystem="C4" code="61184" displayName="ROUTINE VENIPUNCTURE"> < originalText> <reference value="#proc_code_5112" /> </ originalText> </code> <text> <reference value="#proc_desc5112" /> </text> <statusCode code="completed" /> <effectiveTime value= "20110807" /> </procedure> </entry> <entry> <procedure moodCode="EVN" classCode="PROC"> <templateId root="08.09.840.1.693711.10.224.14" /> <id nullFlavor="NA" /> <code codeSystem="C4" code="06064" displayName= "CHEST X-RAY"> <originalText> <reference value="#proc_code_5113 " /> </originalText> </code> <text> <reference value="# proc_desc5113" /> </text> <statusCode code="completed" /> < effectiveTime value="20110807" /> </procedure> </entry> <entry> < procedure moodCode="EVN" classCode="PROC"> <templateId root= "840.1.076720.224.14" /> <id nullFlavor="NA" /> <code codeSystem="C4" code="85446" displayName="COMPREHEN METABOLIC PANEL"> < originalText> <reference value="#proc_code_5111" /> </ originalText> </code> <text> <reference value="#proc_desc5111" /> </text> <statusCode code="completed" /> <effectiveTime value= "20110807" /> </procedure> </entry> <entry> <procedure moodCode="EVN" classCode="PROC"> <templateId root="840.1.290176.22.4.14" /> <id nullFlavor="NA" /> <code codeSystem="C4" code="04858" displayName= "COMPLETE CBC W/AUTO DIFF WBC"> <originalText> <reference value= "#proc_code_5110" /> </originalText> </code> <text> < reference value="#proc_desc5110" /> </text> <statusCode code= "completed" /> <effectiveTime value="20110807" /> </procedure> </entry > <entry> <procedure moodCode="EVN" classCode="PROC"> <templateId root= "840.1.218571.224.14" /> <id nullFlavor="NA" /> <code codeSystem="C4" code="84848" displayName="THER/PROPH/DIAG IV INF, INIT"> <originalText> <reference value="#proc_code_5120" /> </ originalText> </code> <text> <reference value="#proc_desc5120" /> </text> <statusCode code="completed" /> <effectiveTime value= "20110807" /> </procedure> </entry> <entry> <procedure moodCode="EVN" classCode="PROC"> <templateId root="840.1.441337.04.12.224.14" /> <id nullFlavor="NA" /> <code codeSystem="C4" code="75753" displayName= "THER/PROPH/DIAG IV INF ADDON"> <originalText> <reference value= "#proc_code_5121" /> </originalText> </code> <text> < reference value="#proc_desc5121" /> </text> <statusCode code= "completed" /> <effectiveTime value="20110807" /> </procedure> </entry > <entry> <procedure moodCode="EVN" classCode="PROC"> <templateId root= "840.1.361016.04.12.224.14" /> <id nullFlavor="NA" /> <code codeSystem="C4" code="97932" displayName="THER/PROPH/DIAG INJ, SC/IM"> < originalText> <reference value="#proc_code_5126" /> </ originalText> </code> <text> <reference value="#proc_desc5126" /> </text> <statusCode code="completed" /> <effectiveTime value= "20110807" /> </procedure> </entry> <entry> <procedure moodCode="EVN" classCode="PROC"> <templateId root="840.1.404148.04.12.224.14" /> <id nullFlavor="NA" /> <code codeSystem="C4" code="25415" displayName= "TX/PRO/DX INJ NEW DRUG ADDON"> <originalText> <reference value= "#proc_code_5123" /> </originalText> </code> <text> < reference value="#proc_desc5123" /> </text> <statusCode code= "completed" /> <effectiveTime value="20110807" /> </procedure> </entry > <entry> <procedure moodCode="EVN" classCode="PROC"> <templateId root= "840.1.609714.04.12.22414" /> <id nullFlavor="NA" /> <code codeSystem="C4" code="G0378" displayName="HOSPITAL OBSERVATION PER HR"> < originalText> <reference value="#proc_code_5127" /> </ originalText> </code> <text> <reference value="#proc_desc5127" /> </text> <statusCode code="completed" /> <effectiveTime value= "20110807" /> </procedure> </entry> <entry> <procedure moodCode="EVN" classCode="PROC"> <templateId root="840.1.830777.04.12.2214" /> <id nullFlavor="NA" /> <code codeSystem="C4" code="J1200" displayName= "BENADRYL 50"> <originalText> <reference value="#proc_code_5116 " /> </originalText> </code> <text> <reference value="# proc_desc5116" /> </text> <statusCode code="completed" /> < effectiveTime value="20110807" /> </procedure> </entry> <entry> < procedure moodCode="EVN" classCode="PROC"> <templateId root= "840.1.341772.04.12.2214" /> <id nullFlavor="NA" /> <code codeSystem="C4" code="J1956" displayName="LEVAQUIN IV 500MG"> < originalText> <reference value="#proc_code_5114" /> </ originalText> </code> <text> <reference value="#proc_desc5114" /> </text> <statusCode code="completed" /> <effectiveTime value= "20110807" /> </procedure> </entry> <entry> <procedure moodCode="EVN" classCode="PROC"> <templateId root="840.1.279297.10..4.14" /> <id nullFlavor="NA" /> <code codeSystem="C4" code="J2930" displayName= "METHYLPREDNISOLONE INJECTION"> <originalText> <reference value= "#proc_code_5115" /> </originalText> </code> <text> < reference value="#proc_desc5115" /> </text> <statusCode code= "completed" /> <effectiveTime value="20110807" /> </procedure> </entry > <entry> <procedure moodCode="EVN" classCode="PROC"> <templateId root= "840.1.670538.04.12.22.4.14" /> <id nullFlavor="NA" /> <code codeSystem="C4" code="74072" displayName="THER/PROPH/DIAG IV INF ADDON"> <originalText> <reference value="#proc_code_5122" /> </ originalText> </code> <text> <reference value="#proc_desc5122" /> </text> <statusCode code="completed" /> <effectiveTime value= "20110808" /> </procedure> </entry> <entry> <procedure moodCode="EVN" classCode="PROC"> <templateId root="840.1.106448.10.14" /> <id nullFlavor="NA" /> <code codeSystem="C4" code="34655" displayName= "TX/PRO/DX INJ NEW DRUG ADDON"> <originalText> <reference value= "#proc_code_5124" /> </originalText> </code> <text> < reference value="#proc_desc5124" /> </text> <statusCode code= "completed" /> <effectiveTime value="20110808" /> </procedure> </entry > <entry> <procedure moodCode="EVN" classCode="PROC"> <templateId root= "216.840.1.192550.04.12.2214" /> <id nullFlavor="NA" /> <code codeSystem="C4" code="29655" displayName="TX/PRO/DX INJ NEW DRUG REGISTERED VASCULAR TECHNOLOGIST (RVT)"> < originalText> <reference value="#proc_code_5125" /> </ originalText> </code> <text> <reference value="#proc_desc5125" /> </text> <statusCode code="completed" /> <effectiveTime value= "20110808" /> </procedure> </entry> <entry> <procedure moodCode="EVN" classCode="PROC"> <templateId root="216.840.1.260854..14" /> <id nullFlavor="NA" /> <code codeSystem="C4" code="J1200" displayName= "BENADRYL 50"> <originalText> <reference value="#proc_code_5119 " /> </originalText> </code> <text> <reference value="# proc_desc5119" /> </text> <statusCode code="completed" /> < effectiveTime value="20110808" /> </procedure> </entry> <entry> < procedure moodCode="EVN" classCode="PROC"> <templateId root= "216.840.1.581269.1022.4.14" /> <id nullFlavor="NA" /> <code codeSystem="C4" code="J1956" displayName="LEVAQUIN IV 500MG"> < originalText> <reference value="#proc_code_5117" /> </ originalText> </code> <text> <reference value="#proc_desc5117" /> </text> <statusCode code="completed" /> <effectiveTime value= "20110808" /> </procedure> </entry> <entry> <procedure moodCode="EVN" classCode="PROC"> <templateId root="08.09.840.1.890665.04.12.224.14" /> <id nullFlavor="NA" /> <code codeSystem="C4" code="J2930" displayName= "METHYLPREDNISOLONE INJECTION"> <originalText> <reference value= "#proc_code_5118" /> </originalText> </code> <text> < reference value="#proc_desc5118" /> </text> <statusCode code= "completed" /> <effectiveTime value="20110808" /> </procedure> </entry > <entry> <procedure moodCode="EVN" classCode="PROC"> <templateId root= "16.840.1.176995.04.12.224.14" /> <id nullFlavor="NA" /> <code codeSystem="C4" code="44943" displayName="URINALYSIS, AUTO W/SCOPE"> < originalText> <reference value="#proc_code_5108" /> </ originalText> </code> <text> <reference value="#proc_desc5108" /> </text> <statusCode code="completed" /> <effectiveTime value= "20110925" /> </procedure> </entry> <entry> <procedure moodCode="EVN" classCode="PROC"> <templateId root="08.09.840.1.599847.104.14" /> <id nullFlavor="NA" /> <code codeSystem="C4" code="21952" displayName= "EMERGENCY DEPT VISIT"> <originalText> <reference value="#proc_ code_5109" /> </originalText> </code> <text> <reference value="#proc_desc5109" /> </text> <statusCode code="completed" /> <effectiveTime value="20110925" /> </procedure> </entry> <entry> < procedure moodCode="EVN" classCode="PROC"> <templateId root= "08.09.840.1.131336.04.12.224.14" /> <id nullFlavor="NA" /> <code codeSystem="C4" code="A9270" displayName="Non-covered item or service"> < originalText> <reference value="#proc_code_5107" /> </ originalText> </code> <text> <reference value="#proc_desc5107" /> </text> <statusCode code="completed" /> <effectiveTime value= "20110925" /> </procedure> </entry> <entry> <procedure moodCode="EVN" classCode="PROC"> <templateId root="08.09.840.1.074048.04.12.224.14" /> <id nullFlavor="NA" /> <code codeSystem="C4" code="75667" displayName= "ROUTINE VENIPUNCTURE"> <originalText> <reference value="#proc_ code_5102" /> </originalText> </code> <text> <reference value="#proc_desc5102" /> </text> <statusCode code="completed" /> <effectiveTime value="14606286" /> </procedure> </entry> <entry> < procedure moodCode="EVN" classCode="PROC"> <templateId root= "840.1.539961.04.12.22.4.14" /> <id nullFlavor="NA" /> <code codeSystem="C4" code="72404" displayName="CHEST X-RAY"> <originalText> <reference value="#proc_code_5104" /> </originalText> </code > <text> <reference value="#proc_desc5104" /> </text> < statusCode code="completed" /> <effectiveTime value="20111004" /> </ procedure> </entry> <entry> <procedure moodCode="EVN" classCode="PROC"> <templateId root="840.1.407500.1022.4.14" /> <id nullFlavor="NA " /> <code codeSystem="C4" code="58604" displayName="COMPREHEN METABOLIC PANEL"> <originalText> <reference value="#proc_code_5098" /> </originalText> </code> <text> <reference value="#proc_ uicq7137" /> </text> <statusCode code="completed" /> < effectiveTime value="20111004" /> </procedure> </entry> <entry> < procedure moodCode="EVN" classCode="PROC"> <templateId root= "840.1.657497.102022.4.14" /> <id nullFlavor="NA" /> <code codeSystem="C4" code="23489" displayName="ASSAY OF CK (CPK)"> < originalText> <reference value="#proc_code_5096" /> </ originalText> </code> <text> <reference value="#proc_desc5096" /> </text> <statusCode code="completed" /> <effectiveTime value= "20111004" /> </procedure> </entry> <entry> <procedure moodCode="EVN" classCode="PROC"> <templateId root="840.1.376563.04.12.224.14" /> <id nullFlavor="NA" /> <code codeSystem="C4" code="65242" displayName= "CREATINE, MB FRACTION"> <originalText> <reference value="#proc_ code_5095" /> </originalText> </code> <text> <reference value="#proc_desc5095" /> </text> <statusCode code="completed" /> <effectiveTime value="20111004" /> </procedure> </entry> <entry> < procedure moodCode="EVN" classCode="PROC"> <templateId root= "840.1.063931.224.14" /> <id nullFlavor="NA" /> <code codeSystem="C4" code="61217" displayName="ASSAY OF TROPONIN, QUANT"> < originalText> <reference value="#proc_code_5097" /> </ originalText> </code> <text> <reference value="#proc_desc5097" /> </text> <statusCode code="completed" /> <effectiveTime value= "20111004" /> </procedure> </entry> <entry> <procedure moodCode="EVN" classCode="PROC"> <templateId root="840.1.671682.10224.14" /> <id nullFlavor="NA" /> <code codeSystem="C4" code="90824" displayName= "COMPLETE CBC W/AUTO DIFF WBC"> <originalText> <reference value= "#proc_code_5101" /> </originalText> </code> <text> < reference value="#proc_desc5101" /> </text> <statusCode code= "completed" /> <effectiveTime value="20111004" /> </procedure> </entry > <entry> <procedure moodCode="EVN" classCode="PROC"> <templateId root= "840.1.990160.10.224.14" /> <id nullFlavor="NA" /> <code codeSystem="C4" code="88241" displayName="PROTHROMBIN TIME"> < originalText> <reference value="#proc_code_5099" /> </ originalText> </code> <text> <reference value="#proc_desc5099" /> </text> <statusCode code="completed" /> <effectiveTime value= "20111004" /> </procedure> </entry> <entry> <procedure moodCode="EVN" classCode="PROC"> <templateId root="840.1.913624.1022.4.14" /> <id nullFlavor="NA" /> <code codeSystem="C4" code="99028" displayName= "THROMBOPLASTIN TIME, PARTIAL"> <originalText> <reference value= "#proc_code_5100" /> </originalText> </code> <text> < reference value="#proc_desc5100" /> </text> <statusCode code= "completed" /> <effectiveTime value="20111004" /> </procedure> </entry > <entry> <procedure moodCode="EVN" classCode="PROC"> <templateId root= "840.1.829800.10.22.4.14" /> <id nullFlavor="NA" /> <code codeSystem="C4" code="54563" displayName="HELICOBACTER PYLORI"> < originalText> <reference value="#proc_code_5103" /> </ originalText> </code> <text> <reference value="#proc_desc5103" /> </text> <statusCode code="completed" /> <effectiveTime value= "20111004" /> </procedure> </entry> <entry> <procedure moodCode="EVN" classCode="PROC"> <templateId root="08.09.840.1.442488.104.14" /> <id nullFlavor="NA" /> <code codeSystem="C4" code="98654" displayName= "ELECTROCARDIOGRAM, TRACING"> <originalText> <reference value="# proc_code_5106" /> </originalText> </code> <text> < reference value="#proc_desc5106" /> </text> <statusCode code= "completed" /> <effectiveTime value="20111004" /> </procedure> </entry > <entry> <procedure moodCode="EVN" classCode="PROC"> <templateId root= "840.1.400710.104.14" /> <id nullFlavor="NA" /> <code codeSystem="C4" code="33687" displayName="EMERGENCY DEPT VISIT"> < originalText> <reference value="#proc_code_5105" /> </ originalText> </code> <text> <reference value="#proc_desc5105" /> </text> <statusCode code="completed" /> <effectiveTime value= "20111004" /> </procedure> </entry> <entry> <procedure moodCode="EVN" classCode="PROC"> <templateId root="840.1.067160.04.12.224.14" /> <id nullFlavor="NA" /> <code codeSystem="C4" code="A9270" displayName= "Non-covered item or service"> <originalText> <reference value= "#proc_code_5094" /> </originalText> </code> <text> < reference value="#proc_desc5094" /> </text> <statusCode code= "completed" /> <effectiveTime value="20111004" /> </procedure> </entry > <entry> <procedure moodCode="EVN" classCode="PROC"> <templateId root= "08.09.840.1.737836.10.4.14" /> <id nullFlavor="NA" /> <code codeSystem="C4" code="73945" displayName="Est PatientEye Exam Comprehensive" > <originalText> <reference value="#proc_code_17652" /> < /originalText> </code> <text> <reference value="#proc_desc17652 " /> </text> <statusCode code="completed" /> <effectiveTime value ="20170917" /> </procedure> </entry> <entry> <procedure moodCode="EVN" classCode="PROC"> <templateId root="08.09.840.1.497734.10.4.14" /> <id nullFlavor="NA" /> <code codeSystem="C4" code="93277" displayName= "ServicesRefraction"> <originalText> <reference value="#proc_ code_17653" /> </originalText> </code> <text> < reference value="#proc_desc17653" /> </text> <statusCode code= "completed" /> <effectiveTime value="20170917" /> </procedure> </entry > <entry> <procedure moodCode="EVN" classCode="PROC"> <templateId root= "08.09.840.1.022278.104.14" /> <id nullFlavor="NA" /> <code codeSystem="CPT" code="09902" displayName="Polysomnography;sleep Staging W 4ey" > <originalText> <reference value="#proc_code_536241" /> </originalText> </code> <text> <reference value="#proc_ mqhl274852" /> </text> <statusCode code="completed" /> < effectiveTime value="93160450" /> </procedure> </entry></section> Results Test Result Range CULTURE VAGINAL - 01/13/16 10:32 CULTURE VAGINAL LAB COMMENT: CHEM 14 COMPREHENSIVE METABOLIC PANEL - 01/26/16 15:43 CHEM 14 COMPREHENSIVE METABOLIC PANEL LAB SODIUM 133 mmol/L 137 - 145 POTASSIUM 4.2 mmol/L 3.4 - 5.3 CHLORIDE 100 mmol/L 98 - 107 CO2 26.0 mmol/L 22.0 - 30.0 CALCIUM 9.0 mg/dl 8.4 - 10.3 GLUCOSE 149 mg/dl 65 - 110 ALBUMIN 4.2 g/dl 3.3 - 5.0 ALK PHOS 57 IU/L 32 - 91 ALT/SGPT 34 U/L 9 - 72 AST/SGOT 24 U/L 5 - 40 BUN 32 mg/dl 7 - 18 CREATININE 0.9 mg/dl 0.7 - 1.2 BUN/CREAT 34.04 RATIO T BILIRUBIN 0.30 mg/dl 0.20 - 1.30 TOTAL PROTEIN 6.80 g/dl 5.49 - 7.83 AGE 65 yrs GFR NonAA 66 GFR AA 80 CBC WITH DIFFERENTIAL - 01/26/16 15:43 CBC WITH DIFFERENTIAL LAB WBC 2.7 th/ul 4.3 - 11.0 RBC 4.65 mil/ul 4.20 - 5.40 HEMOGLOBIN 12.8 g/dl 12.0 - 16.0 HEMATOCRIT 38.8 % 38.0 - 47.0 MCV 84 fL 82 - 100 MCH 27.5 pg 26.0 - 33.0 MCHC 33.0 g/dl 31.0 - 36.0 RDW 14.3 % 11.5 - 14.[address] 110 th/ul 150 - 375 NEUTROPHILS 1.4 th/ul 1.4 - 6.5 LYMPHOCYTES 0.9 th/ul 1.0 - 4.0 MONOCYTES 0.3 th/ul 0.0 - 0.7 EOSINOPHILS 0.1 th/ul 0.0 - 0.7 BASOPHILS 0.0 th/ul 0.0 - 0.2 MANUAL DIFF SEE BELOW NEUT MANUAL 48 % 50 - 70 BANDS MANUAL 0 % 2 - 6 LYMS MANUAL 33 % 20 - 40 MONOS MANUAL 10 % 2 - 12 EOS MANUAL 9 % 1 - 3 BASO MANUAL 0 % 0 - 1 METAS MANUAL 0 % MYELOS MANUAL 0 % BLASTS MANUAL 0 % ATYP LYMPHS 0 % PROLYMPH MANUAL 0 0 - 0 TOTAL DIFF CELLS 100 100 - 100 RBC MORPH NORMAL BNP - 01/26/16 15:43 BNPT 14.0 pg/mL 0.0 - 100 URINALYSIS - 01/26/16 16:25 URINALYSIS LAB Color YELLOW Character CLEAR GLUCOSE NEGATIVE Bilirubin NEGATIVE Ketones NEGATIVE Sp [place] >=1.030 Ph 6.0 Protein NEGATIVE Urobilinogen 0.2 Nitrite NEGATIVE Blood NEGATIVE Leukocytes NEGATIVE Microscopic Not Indicat TRIAGE DRUG SCREEN - 01/26/16 16:25 TRIAGE DRUG SCREEN LAB PHENCYCLIDINE NEGATIVE Normal: Negative BENZODIAZEPINES NEGATIVE Normal: Negative COCAINE NEGATIVE Normal: Negative AMPHETAMINES NEGATIVE Normal: Negative THC NEGATIVE Normal: Negative OPIATES NEGATIVE Normal: Negative BARBITURATES NEGATIVE Normal: Negative TCA NEGATIVE Normal: Negative METHAMPHETAMINES NEGATIVE Normal: Negative METHADONE NEGATIVE Normal: Negative OXYCODONE NEGATIVE Normal: Negative PROPOXYPHENE PPX NEGATIVE Normal: Negative CBC WITH DIFFERENTIAL - 05/05/16 15:35 CBC WITH DIFFERENTIAL LAB WBC 4.9 th/ul 4.3 - 11.0 RBC 4.58 mil/ul 4.20 - 5.40 HEMOGLOBIN 12.5 g/dl 12.0 - 16.0 HEMATOCRIT 37.8 % 38.0 - 47.0 MCV 83 fL 82 - 100 MCH 27.2 pg 26.0 - 33.0 MCHC 33.0 g/dl 31.0 - 36.0 RDW 13.5 % 11.5 - 14.[address] 144 th/ul 150 - 375 NEUTROPHILS 3.1 th/ul 1.4 - 6.5 LYMPHOCYTES 1.2 th/ul 1.0 - 4.0 MONOCYTES 0.4 th/ul 0.0 - 0.7 EOSINOPHILS 0.2 th/ul 0.0 - 0.7 BASOPHILS 0.0 th/ul 0.0 - 0.2 MANUAL DIFF NOT INDICATED MAGNESIUM - 05/05/16 15:35 MAGNESIUM 1.5 MG/DL 1.6 - 2.3 CHEM 14 COMPREHENSIVE METABOLIC PANEL - 05/05/16 15:35 CHEM 14 COMPREHENSIVE METABOLIC PANEL LAB SODIUM 137 mmol/L 137 - 145 POTASSIUM 4.5 mmol/L 3.4 - 5.3 CHLORIDE 100 mmol/L 98 - 107 CO2 32.0 mmol/L 22.0 - 30.0 CALCIUM 8.7 mg/dl 8.4 - 10.3 GLUCOSE 97 mg/dl 65 - 110 ALBUMIN 4.0 g/dl 3.3 - 5.0 ALK PHOS 52 IU/L 32 - 91 ALT/SGPT 34 U/L 9 - 72 AST/SGOT 23 U/L 5 - 40 BUN 19 mg/dl 7 - 18 CREATININE 1.0 mg/dl 0.7 - 1.2 BUN/CREAT 18.45 RATIO T BILIRUBIN 0.40 mg/dl 0.20 - 1.30 TOTAL PROTEIN 6.50 g/dl 5.49 - 7.83 AGE 65 yrs GFR NonAA 59 GFR AA 71 CK - 05/05/16 15:35 CK 37 U/L 30 - 135 LDH - 05/05/16 15:35 LDH 137 IU/L 98 - 192 TROPONIN - 05/05/16 15:35 TROPONIN-I 0.000 ng/ml 0.000 - 0.050 CK-MB - 05/05/16 15:35 CKMB 1.4 NG/ML 0.6 - 6.3 D-DIMER - 05/05/16 15:35 D-DIMER <0.22 ug/ml FEU PT/PTT - 05/05/16 15:35 PROTIME 12.0 SEC 11.8 - 14.3 INR 0.90 PTT 26.0 SEC 26.4 - 36.2 URINALYSIS - 05/05/16 16:50 URINALYSIS LAB Color YELLOW Character CLEAR GLUCOSE NEGATIVE Bilirubin NEGATIVE Ketones NEGATIVE Sp [place] 1.020 Ph 5.5 Protein NEGATIVE Urobilinogen 0.2 Nitrite NEGATIVE Blood NEGATIVE Leukocytes NEGATIVE Microscopic Not Indicat CBC WITH DIFFERENTIAL - 05/25/16 17:05 CBC WITH DIFFERENTIAL LAB WBC 4.4 th/ul 4.3 - 11.0 RBC 4.45 mil/ul 4.20 - 5.40 HEMOGLOBIN 12.1 g/dl 12.0 - 16.0 HEMATOCRIT 36.6 % 38.0 - 47.0 MCV 82 fL 82 - 100 MCH 27.3 pg 26.0 - 33.0 MCHC 33.2 g/dl 31.0 - 36.0 RDW 13.5 % 11.5 - 14.[address] 131 th/ul 150 - 375 PLATELET EST DECREASED NEUTROPHILS 2.4 th/ul 1.4 - 6.5 LYMPHOCYTES 1.3 th/ul 1.0 - 4.0 MONOCYTES 0.4 th/ul 0.0 - 0.7 EOSINOPHILS 0.3 th/ul 0.0 - 0.7 BASOPHILS 0.0 th/ul 0.0 - 0.2 MANUAL DIFF NOT INDICATED CHEM 14 COMPREHENSIVE METABOLIC PANEL - 05/25/16 17:05 CHEM 14 COMPREHENSIVE METABOLIC PANEL LAB SODIUM 139 mmol/L 137 - 145 POTASSIUM 4.7 mmol/L 3.4 - 5.3 CHLORIDE 101 mmol/L 98 - 107 CO2 33.0 mmol/L 22.0 - 30.0 CALCIUM 9.1 mg/dl 8.4 - 10.3 GLUCOSE 91 mg/dl 65 - 110 ALBUMIN 3.9 g/dl 3.3 - 5.0 ALK PHOS 48 IU/L 32 - 91 ALT/SGPT 27 U/L 9 - 72 AST/SGOT 17 U/L 5 - 40 BUN 24 mg/dl 7 - 18 CREATININE 0.7 mg/dl 0.7 - 1.2 BUN/CREAT 36.36 RATIO T BILIRUBIN 0.40 mg/dl 0.20 - 1.30 TOTAL PROTEIN 6.20 g/dl 5.49 - 7.83 AGE 65 yrs GFR NonAA 89 GFR AA 107 TROPONIN - 05/25/16 17:05 TROPONIN-I 0.000 ng/ml 0.000 - 0.050 CBC WITH DIFFERENTIAL - 07/26/16 00:25 CBC WITH DIFFERENTIAL LAB WBC 3.9 th/ul 4.3 - 11.0 RBC 4.21 mil/ul 4.20 - 5.40 HEMOGLOBIN 11.5 g/dl 12.0 - 16.0 HEMATOCRIT 35.2 % 38.0 - 47.0 MCV 84 fL 82 - 100 MCH 27.3 pg 26.0 - 33.0 MCHC 32.7 g/dl 31.0 - 36.0 RDW 14.2 % 11.5 - 14.[address] 126 th/ul 150 - 375 NEUTROPHILS 2.5 th/ul 1.4 - 6.5 LYMPHOCYTES 0.9 th/ul 1.0 - 4.0 MONOCYTES 0.3 th/ul 0.0 - 0.7 EOSINOPHILS 0.2 th/ul 0.0 - 0.7 BASOPHILS 0.0 th/ul 0.0 - 0.2 MANUAL DIFF NOT INDICATED D-DIMER - 07/26/16 00:25 D-DIMER 0.24 ug/ml FEU CHEM 14 COMPREHENSIVE METABOLIC PANEL - 07/26/16 00:25 CHEM 14 COMPREHENSIVE METABOLIC PANEL LAB SODIUM 137 mmol/L 137 - 145 POTASSIUM 3.3 mmol/L 3.4 - 5.3 CHLORIDE 99 mmol/L 98 - 107 CO2 31.0 mmol/L 22.0 - 30.0 CALCIUM 8.8 mg/dl 8.4 - 10.3 GLUCOSE 163 mg/dl 65 - 110 ALBUMIN 3.6 g/dl 3.3 - 5.0 ALK PHOS 54 IU/L 32 - 91 ALT/SGPT 23 U/L 9 - 72 AST/SGOT 18 U/L 5 - 40 BUN 24 mg/dl 7 - 18 CREATININE 0.8 mg/dl 0.7 - 1.2 BUN/CREAT 31.17 RATIO T BILIRUBIN 0.30 mg/dl 0.20 - 1.30 TOTAL PROTEIN 6.10 g/dl 5.49 - 7.83 AGE 65 yrs GFR NonAA 76 GFR AA 92 TROPONIN - 07/26/16 00:25 TROPONIN-I 0.000 ng/ml 0.000 - 0.050 URINALYSIS - 07/26/16 01:02 URINALYSIS LAB Color YELLOW Character CLEAR GLUCOSE NEGATIVE Bilirubin NEGATIVE Ketones NEGATIVE Sp [place] >=1.030 Ph 6.0 Protein NEGATIVE Urobilinogen 0.2 Nitrite NEGATIVE Blood NEGATIVE Leukocytes NEGATIVE Microscopic Not Indicat URINALYSIS - 08/20/16 10:24 URINALYSIS LAB Color YELLOW Character CLOUDY GLUCOSE NEGATIVE Bilirubin NEGATIVE Ketones NEGATIVE Sp [place] 1.025 Ph 6.0 Protein NEGATIVE Urobilinogen 0.2 Nitrite NEGATIVE Blood TRACE-INTAC Leukocytes 2+ Microscopic See Below Urine Volume 12 ml Specimen Type SPUN Bacteria 1+ (10-50) WBC/ 25-50 RBC/ 0-2 Squa Epi Cell 2-5 Culture To Follow CBC WITH DIFFERENTIAL - 08/26/16 15:18 CBC WITH DIFFERENTIAL LAB WBC 4.8 th/ul 4.3 - 11.0 RBC 3.98 mil/ul 4.20 - 5.40 HEMOGLOBIN 11.0 g/dl 12.0 - 16.0 HEMATOCRIT 33.5 % 38.0 - 47.0 MCV 84 fL 82 - 100 MCH 27.7 pg 26.0 - 33.0 MCHC 32.9 g/dl 31.0 - 36.0 RDW 14.1 % 11.5 - 14.[address] 142 th/ul 150 - 375 PLATELET EST DECREASED NEUTROPHILS 3.0 th/ul 1.4 - 6.5 LYMPHOCYTES 1.0 th/ul 1.0 - 4.0 MONOCYTES 0.3 th/ul 0.0 - 0.7 EOSINOPHILS 0.5 th/ul 0.0 - 0.7 BASOPHILS 0.0 th/ul 0.0 - 0.2 MANUAL DIFF SEE BELOW NEUT MANUAL 65 % 50 - 70 BANDS MANUAL 1 % 2 - 6 LYMS MANUAL 18 % 20 - 40 MONOS MANUAL 7 % 2 - 12 EOS MANUAL 9 % 1 - 3 BASO MANUAL 0 % 0 - 1 METAS MANUAL 0 % MYELOS MANUAL 0 % BLASTS MANUAL 0 % ATYP LYMPHS 0 % PROLYMPH MANUAL 0 0 - 0 TOTAL DIFF CELLS 100 100 - 100 RBC MORPH NORMAL TROPONIN - 08/26/16 15:18 TROPONIN-I 0.000 ng/ml 0.000 - 0.050 CHEM 14 COMPREHENSIVE METABOLIC PANEL - 08/26/16 15:18 CHEM 14 COMPREHENSIVE METABOLIC PANEL LAB SODIUM 136 mmol/L 137 - 145 POTASSIUM 4.5 mmol/L 3.4 - 5.3 CHLORIDE 102 mmol/L 98 - 107 CO2 28.0 mmol/L 22.0 - 30.0 CALCIUM 8.5 mg/dl 8.4 - 10.3 GLUCOSE 98 mg/dl 65 - 110 ALBUMIN 3.5 g/dl 3.3 - 5.0 ALK PHOS 68 IU/L 32 - 91 ALT/SGPT 20 U/L 9 - 72 AST/SGOT 16 U/L 5 - 40 BUN 30 mg/dl 7 - 18 CREATININE 1.3 mg/dl 0.7 - 1.2 BUN/CREAT 23.62 RATIO T BILIRUBIN 0.00 mg/dl 0.20 - 1.30 TOTAL PROTEIN 5.90 g/dl 5.49 - 7.83 AGE 65 yrs GFR NonAA 43 GFR AA 53 ALCOHOL, MEDICAL - 08/26/16 15:18 ALCOHOL <0.2 MG/DL 0.0 - 50.0 CULTURE URINE - 11/15/16 15:09 CULTURE URINE LAB TYPE OF SPECIMEN CC COMMENT: FINDINGS D1 GROWTH NR FINDINGS D2 GROWTH NR CBC W Auto Diff Bld - 12/27/16 08:39 CBC WITH DIFFERENTIAL LAB WBC 9.5 th/ul 4.3 - 11.0 RBC 5.03 mil/ul 4.20 - 5.40 HEMOGLOBIN 13.5 g/dl 12.0 - 16.0 HEMATOCRIT 40.9 % 38.0 - 47.0 MCV 81 fL 82 - 100 MCH 26.9 pg 26.0 - 33.0 MCHC 33.1 g/dl 31.0 - 36.0 RDW 14.8 % 11.5 - 14.[address] 111 th/ul 150 - 375 PLATELET EST DECREASED NEUTROPHILS 8.4 th/ul 1.4 - 6.5 LYMPHOCYTES 0.6 th/ul 1.0 - 4.0 MONOCYTES 0.3 th/ul 0.0 - 0.7 EOSINOPHILS 0.1 th/ul 0.0 - 0.7 BASOPHILS 0.0 th/ul 0.0 - 0.2 MANUAL DIFF SEE BELOW %NEUT MANUAL 77 % 50 - 70 %BANDS MANUAL 12 % 2 - 6 %LYMS MANUAL 6 % 20 - 40 %MONOS MANUAL 4 % 2 - 12 %EOS MANUAL 1 % 1 - 3 %BASO MANUAL 0 % 0 - 1 %METAS MANUAL 0 % %MYELOS MANUAL 0 % %BLASTS MANUAL 0 % %ATYP LYMPHS 0 % TOTAL DIFF CELLS. 100 100 - 100 NRBC 0 RBC MORPH NORMAL CHEM 14 COMPREHENSIVE METABOLIC PANEL - 12/27/16 08:39 CHEM 14 COMPREHENSIVE METABOLIC PANEL LAB SODIUM 138 mmol/L 137 - 145 POTASSIUM 4.8 mmol/L 3.4 - 5.3 CHLORIDE 98 mmol/L 98 - 107 CO2 28.0 mmol/L 22.0 - 30.0 CALCIUM 9.5 mg/dl 8.4 - 10.3 GLUCOSE 139 mg/dl 65 - 110 ALBUMIN 4.3 g/dl 3.3 - 5.0 ALK PHOS 48 IU/L 32 - 91 ALT/SGPT 31 U/L 9 - 72 AST/SGOT 35 U/L 5 - 40 BUN 23 mg/dl 7 - 18 CREATININE 1.0 mg/dl 0.7 - 1.2 BUN/CREAT 23.71 RATIO T BILIRUBIN 1.10 mg/dl 0.20 - 1.30 TOTAL PROTEIN 7.00 g/dl 5.49 - 7.83 AGE 66 yrs GFR NonAA 59 GFR AA 71 PT + aPTT Pnl PPP - 12/27/16 08:39 PROTIME 12.0 SEC 11.8 - 14.3 INR 0.88 PTT 22.2 SEC 26.4 - 36.2 BNP - 12/27/16 08:39 BNPT 92.0 pg/mL 0.0 - 100 LACTIC ACID, PLASMA - 12/27/16 08:39 LACTIC ACID 3.5 mmol/L 0.5 - 2.2 Bacteria Bld Cult - 12/27/16 08:39 CULTURE BLOOD LAB BLOOD SOURCE: LT ARM COMMENT: FINDINGS D1 NO GROWTH FINDINGS D2 NO GROWTH FINDINGS D3 NO GROWTH FINDINGS D4 NO GROWTH Bacteria Bld Cult - 12/27/16 08:47 CULTURE BLOOD LAB BLOOD SOURCE: RT ARM COMMENT: FINDINGS D1 NO GROWTH FINDINGS D2 NO GROWTH FINDINGS D3 NO GROWTH FINDINGS D4 NO GROWTH URINALYSIS - 12/27/16 15:55 URINALYSIS LAB Color YELLOW Character CLEAR GLUCOSE NEGATIVE Bilirubin NEGATIVE Ketones NEGATIVE Sp [place] <=1.005 Ph 6.0 Protein NEGATIVE Urobilinogen 0.2 Nitrite NEGATIVE Blood NEGATIVE Leukocytes NEGATIVE Microscopic Not Indicat LACTIC ACID, PLASMA - 12/28/16 06:15 LACTIC ACID 0.9 mmol/L 0.5 - 2.2 DAILY CBC WITH DIFF - 12/28/16 06:15 DAILY CBC WITH DIFF LAB WBC 6.3 th/ul 4.3 - 11.0 RBC 4.22 mil/ul 4.20 - 5.40 HEMOGLOBIN 11.2 g/dl 12.0 - 16.0 HEMATOCRIT 34.3 % 38.0 - 47.0 MCV 81 fL 82 - 100 MCH 26.6 pg 26.0 - 33.0 MCHC 32.7 g/dl 31.0 - 36.0 RDW 14.9 % 11.5 - 14.[address] 98 th/ul 150 - 375 NEUTROPHILS 5.2 th/ul 1.4 - 6.5 LYMPHOCYTES 0.7 th/ul 1.0 - 4.0 MONOCYTES 0.3 th/ul 0.0 - 0.7 EOSINOPHILS 0.0 th/ul 0.0 - 0.7 BASOPHILS 0.0 th/ul 0.0 - 0.2 %NEUT MANUAL 82 % 50 - 70 %BANDS MANUAL 0 % 2 - 6 %LYMS MANUAL 13 % 20 - 40 %MONOS MANUAL 5 % 2 - 12 %EOS MANUAL 0 % 1 - 3 %BASO MANUAL 0 % 0 - 1 %METAS MANUAL 0 % %MYELOS MANUAL 0 % %BLASTS MANUAL 0 % %ATYP LYMPHS 0 % TOTAL DIFF CELLS. 100 100 - 100 RBC MORPH NORMAL COMMENT DAILY CHEM - 12/28/16 06:15 DAILY CHEM 14 LAB GLUCOSE 115 mg/dl 65 - 110 BUN 15 mg/dl 7 - 18 CREATININE 0.7 mg/dl 0.7 - 1.2 BUN/CREAT 21.43 RATIO SODIUM 139 mmol/L 137 - 145 POTASSIUM 3.8 mmol/L 3.4 - 5.3 CHLORIDE 104 mmol/L 98 - 107 CO2 26.0 mmol/L 22.0 - 30.0 SGOT 16 U/L 5 - 40 ALK PHOS 42 IU/L 32 - 91 T BILIRUBIN 0.50 mg/dl 0.20 - 1.30 TOTAL PROTEIN 5.90 g/dl 5.49 - 7.83 ALBUMIN 3.4 g/dl 3.3 - 5.0 CALCIUM 8.1 mg/dl 8.4 - 10.3 GPT 26 U/L 9 - 72 AGE 66 yrs GFR NonAA 88 GFR AA 107 DAILY CHEM 12/29/16 05:14 DAILY CHEM 14 LAB GLUCOSE 110 mg/dl 65 - 110 BUN 12 mg/dl 7 - 18 CREATININE 0.7 mg/dl 0.7 - 1.2 BUN/CREAT 16.44 RATIO SODIUM 139 mmol/L 137 - 145 POTASSIUM 4.4 mmol/L 3.4 - 5.3 CHLORIDE 106 mmol/L 98 - 107 CO2 25.0 mmol/L 22.0 - 30.0 SGOT 21 U/L 5 - 40 ALK PHOS 42 IU/L 32 - 91 T BILIRUBIN 0.50 mg/dl 0.20 - 1.30 TOTAL PROTEIN 6.10 g/dl 5.49 - 7.83 ALBUMIN 3.5 g/dl 3.3 - 5.0 CALCIUM 8.5 mg/dl 8.4 - 10.3 GPT 26 U/L 9 - 72 AGE 66 yrs GFR NonAA 88 GFR AA 107 DAILY CBC WITH DIFF - 12/29/16 05:14 DAILY CBC WITH DIFF LAB WBC 7.1 th/ul 4.3 - 11.0 RBC 4.23 mil/ul 4.20 - 5.40 HEMOGLOBIN 11.4 g/dl 12.0 - 16.0 HEMATOCRIT 34.7 % 38.0 - 47.0 MCV 82 fL 82 - 100 MCH 27.0 pg 26.0 - 33.0 MCHC 32.9 g/dl 31.0 - 36.0 RDW 15.0 % 11.5 - 14.[address] 113 th/ul 150 - 375 NEUTROPHILS 5.6 th/ul 1.4 - 6.5 LYMPHOCYTES 0.8 th/ul 1.0 - 4.0 MONOCYTES 0.4 th/ul 0.0 - 0.7 EOSINOPHILS 0.2 th/ul 0.0 - 0.7 BASOPHILS 0.0 th/ul 0.0 - 0.2 %NEUT MANUAL 80 % 50 - 70 %BANDS MANUAL 0 % 2 - 6 %LYMS MANUAL 11 % 20 - 40 %MONOS MANUAL 5 % 2 - 12 %EOS MANUAL 4 % 1 - 3 %BASO MANUAL 0 % 0 - 1 %METAS MANUAL 0 % %MYELOS MANUAL 0 % %BLASTS MANUAL 0 % %ATYP LYMPHS 0 % TOTAL DIFF CELLS. 100 100 - 100 PLATELET EST NORMAL RBC MORPH NORMAL COMMENT DAILY CBC WITH DIFF - 12/30/16 05:26 DAILY CBC WITH DIFF LAB WBC 5.3 th/ul 4.3 - 11.0 RBC 4.13 mil/ul 4.20 - 5.40 HEMOGLOBIN 10.8 g/dl 12.0 - 16.0 HEMATOCRIT 33.7 % 38.0 - 47.0 MCV 81 fL 82 - 100 MCH 26.1 pg 26.0 - 33.0 MCHC 32.1 g/dl 31.0 - 36.0 RDW 14.8 % 11.5 - 14.[address] 98 th/ul 150 - 375 NEUTROPHILS 4.2 th/ul 1.4 - 6.5 LYMPHOCYTES 0.6 th/ul 1.0 - 4.0 MONOCYTES 0.4 th/ul 0.0 - 0.7 EOSINOPHILS 0.1 th/ul 0.0 - 0.7 BASOPHILS 0.0 th/ul 0.0 - 0.2 %NEUT MANUAL 78 % 50 - 70 %BANDS MANUAL 0 % 2 - 6 %LYMS MANUAL 14 % 20 - 40 %MONOS MANUAL 5 % 2 - 12 %EOS MANUAL 3 % 1 - 3 %BASO MANUAL 0 % 0 - 1 %METAS MANUAL 0 % %MYELOS MANUAL 0 % %BLASTS MANUAL 0 % %ATYP LYMPHS 0 % TOTAL DIFF CELLS. 100 100 - 100 PLATELET EST DECREASED RBC MORPH NORMAL COMMENT PT + aPTT Pnl PPP - 12/30/16 05:26 PROTIME 12.5 SEC 11.8 - 14.3 INR 0.94 PTT 30.1 SEC 26.4 - 36.2 DAILY CHEM 14 - 12/30/16 05:26 DAILY CHEM 14 LAB GLUCOSE 117 mg/dl 65 - 110 BUN 14 mg/dl 7 - 18 CREATININE 0.8 mg/dl 0.7 - 1.2 BUN/CREAT 18.67 RATIO SODIUM 139 mmol/L 137 - 145 POTASSIUM 4.3 mmol/L 3.4 - 5.3 CHLORIDE 101 mmol/L 98 - 107 CO2 29.0 mmol/L 22.0 - 30.0 SGOT 19 U/L 5 - 40 ALK PHOS 42 IU/L 32 - 91 T BILIRUBIN 0.60 mg/dl 0.20 - 1.30 TOTAL PROTEIN 6.10 g/dl 5.49 - 7.83 ALBUMIN 3.4 g/dl 3.3 - 5.0 CALCIUM 8.8 mg/dl 8.4 - 10.3 GPT 25 U/L 9 - 72 AGE 66 yrs GFR NonAA 76 GFR AA 92 URINALYSIS - 03/07/17 10:35 URINALYSIS LAB Color YELLOW Character CLEAR GLUCOSE NEGATIVE Bilirubin NEGATIVE Ketones NEGATIVE Sp [place] >=1.030 Ph 6.0 Protein 1+ Urobilinogen 0.2 Nitrite NEGATIVE Blood 1+ Leukocytes 2+ Microscopic See Below Urine Volume 12 ml Specimen Type SPUN Bacteria 1+ (10-50) WBC/ 10-25 RBC/ 5-10 Squa Epi Cell 0-2 Culture To Follow URINALYSIS - 03/07/17 10:35 URINALYSIS NRG Color YELLOW NRG Character CLEAR NRG Glucose NEGATIVE NRG Bilirubin NEGATIVE NRG Ketones NEGATIVE NRG Sp [place] >=1.030 NRG Ph 6.0 NRG Protein 1+ NRG Urobilinogen 0.2 NRG Nitrite NEGATIVE NRG Blood 1+ NRG Leukocytes 2+ NRG Microscopic See Below NRG Urine Volume 12 ml NRG Specimen Type SPUN NRG Bacteria 1+ (10-50) NRG WBC/ 10-25 NRG RBC/ 5-10 NRG Squa Epi Cell 0-2 NRG Culture To Follow NRG * Urine CTS - 03/07/17 10:35 CULTUREURINE NRG FINDINGS D1 GROWTH AB NRG FINDINGS D2 GROWTH AB NRG FINDINGS D3 GROWTH AB NRG GLYCOHEMOGLOBIN - 03/26/17 09:59 GLYCOHEMOGLOBIN LAB HGB A1C 5.9 % 0.0 - 8.0 MEAN GLUCOSE 110 mg/dl 65 - 110 * Hgb A1C - 03/26/17 09:59 GLYCOHEMOGLOBIN NRG HGB A1C 5.9 % 0.0 - 8.0 MEAN GLUCOSE 110 mg/dl 65 - 110 CBC W Auto Diff Bld - 03/26/17 15:13 CBC WITH DIFFERENTIAL LAB WBC 4.7 th/ul 4.3 - 11.0 RBC 4.81 mil/ul 4.20 - 5.40 HEMOGLOBIN 13.3 g/dl 12.0 - 16.0 HEMATOCRIT 39.4 % 38.0 - 47.0 MCV 82 fL 82 - 100 MCH 27.6 pg 26.0 - 33.0 MCHC 33.7 g/dl 31.0 - 36.0 RDW 14.1 % 11.5 - 14.[address] 140 th/ul 150 - 375 NEUTROPHILS 3.3 th/ul 1.4 - 6.5 LYMPHOCYTES 0.9 th/ul 1.0 - 4.0 MONOCYTES 0.3 th/ul 0.0 - 0.7 EOSINOPHILS 0.2 th/ul 0.0 - 0.7 BASOPHILS 0.0 th/ul 0.0 - 0.2 MANUAL DIFF NOT INDICATED FastTSH - 03/26/17 15:13 FastTSH 1.51 uIU/ml 0.34 - 5.60 CHEM 14 COMPREHENSIVE METABOLIC PANEL - 03/26/17 15:13 CHEM 14 COMPREHENSIVE METABOLIC PANEL LAB SODIUM 134 mmol/L 137 - 145 POTASSIUM 4.6 mmol/L 3.4 - 5.3 CHLORIDE 95 mmol/L 98 - 107 CO2 30.0 mmol/L 22.0 - 30.0 CALCIUM 9.3 mg/dl 8.4 - 10.3 GLUCOSE 145 mg/dl 65 - 110 ALBUMIN 4.1 g/dl 3.3 - 5.0 ALK PHOS 59 IU/L 32 - 91 ALT/SGPT 39 U/L 9 - 72 AST/SGOT 31 U/L 5 - 40 BUN 29 mg/dl 7 - 18 CREATININE 1.0 mg/dl 0.7 - 1.2 BUN/CREAT 28.71 RATIO T BILIRUBIN 0.60 mg/dl 0.20 - 1.30 TOTAL PROTEIN 7.00 g/dl 5.49 - 7.83 AGE 66 yrs GFR NonAA 59 GFR AA 71 * CBC w/diff - 03/26/17 15:13 CBCWITHDIFFERENTIAL NRG WBC 4.7 th/ul 4.3 - 11.0 RBC 4.81 mil/ul 4.20 - 5.40 HEMOGLOBIN 13.3 g/dl 12.0 - 16.0 HEMATOCRIT 39.4 % 38.0 - 47.0 MCV 82 fL 82 - 100 MCH 27.6 pg 26.0 - 33.0 MCHC 33.7 g/dl 31.0 - 36.0 RDW 14.1 % 11.5 - 14.[address] 140 th/ul 150 - 375 NEUTROPHILS 69.3 % 50.0 - 76.0 LYMPHOCYTES 19.8 % 20.0 - 40.0 MONOCYTES 6.3 % 2.0 - 12.0 EOSINOPHILS 3.9 % 1.0 - 3.0 BASOPHILS 0.7 % 0.0 - 1.0 NEUTROPHILS 3.3 th/ul 1.4 - 6.5 LYMPHOCYTES 0.9 th/ul 1.0 - 4.0 MONOCYTES 0.3 th/ul 0.0 - 0.7 EOSINOPHILS 0.2 th/ul 0.0 - 0.7 BASOPHILS 0.0 th/ul 0.0 - 0.2 MANUAL DIFF NOT INDICATED NRG * Chem-14 - 03/26/17 15:13 [id number] NRG ALK PHOS 59 IU/L 32 - 91 ALT/SGPT 39 U/L 9 - 72 AST/SGOT 31 U/L 5 - 40 BUN/CREAT 28.71 RATIO NRG T BILIRUBIN 0.60 mg/dl 0.20 - 1.30 TOTAL PROTEIN 7.00 g/dl 5.49 - 7.83 AGE 66 yrs NRG GFR NonAA 59 NRG GFR AA 71 NRG * TSH - 03/26/17 15:13 CBC WITH DIFFERENTIAL - 06/27/17 12:58 CBC WITH DIFFERENTIAL LAB WBC 6.4 th/ul 4.3 - 11.0 RBC 4.57 mil/ul 4.20 - 5.40 HEMOGLOBIN 12.7 g/dl 12.0 - 16.0 HEMATOCRIT 38.7 % 38.0 - 47.0 MCV 85 fL 82 - 100 MCH 27.8 pg 26.0 - 33.0 MCHC 32.7 g/dl 31.0 - 36.0 RDW 15.1 % 11.5 - 14.[address] 166 th/ul 150 - 375 NEUTROPHILS 4.6 th/ul 1.4 - 6.5 LYMPHOCYTES 1.2 th/ul 1.0 - 4.0 MONOCYTES 0.4 th/ul 0.0 - 0.7 EOSINOPHILS 0.1 th/ul 0.0 - 0.7 BASOPHILS 0.0 th/ul 0.0 - 0.2 MANUAL DIFF NOT INDICATED RBC MORPH ABNORMAL ANISOCYTOSIS 1+ COMMENT CHEM 14 COMPREHENSIVE METABOLIC PANEL - 06/27/17 12:58 CHEM 14 COMPREHENSIVE METABOLIC PANEL LAB SODIUM 136 mmol/L 137 - 145 POTASSIUM 4.4 mmol/L 3.4 - 5.3 CHLORIDE 105 mmol/L 98 - 107 CO2 22.0 mmol/L 22.0 - 30.0 CALCIUM 9.1 mg/dl 8.4 - 10.3 GLUCOSE 109 mg/dl 65 - 110 ALBUMIN 3.7 g/dl 3.3 - 5.0 ALK PHOS 45 IU/L 32 - 91 ALT/SGPT 24 U/L 9 - 72 AST/SGOT 15 U/L 5 - 40 BUN 55 mg/dl 7 - 18 CREATININE 1.3 mg/dl 0.7 - 1.2 BUN/CREAT 42.97 RATIO T BILIRUBIN 0.50 mg/dl 0.20 - 1.30 TOTAL PROTEIN 6.70 g/dl 5.49 - 7.83 AGE 66 yrs GFR NonAA 43 GFR AA 52 TROPONIN - 06/27/17 12:58 TROPONIN-I 0.000 ng/ml 0.000 - 0.050 LIPASE - 06/27/17 12:58 LIPASE 24 U/L 22 - 51 INFLUENZA RAPID [facility] - 07/07/17 14:18 INFLUENZA A & B PCR, [facility] LAB INFLUENZA A POSITIVE NORMAL: NEGATIVE INFLUENZA B NEGATIVE NORMAL: NEGATIVE CBC W Auto Diff Bld - 07/19/17 13:09 CBC WITH DIFFERENTIAL LAB WBC 4.4 th/ul 4.3 - 11.0 RBC 4.80 mil/ul 4.20 - 5.40 HEMOGLOBIN 13.2 g/dl 12.0 - 16.0 HEMATOCRIT 40.7 % 38.0 - 47.0 MCV 85 fL 82 - 100 MCH 27.5 pg 26.0 - 33.0 MCHC 32.5 g/dl 31.0 - 36.0 RDW 13.8 % 11.5 - 14.[address] 175 th/ul 150 - 375 NEUTROPHILS 2.8 th/ul 1.4 - 6.5 LYMPHOCYTES 1.1 th/ul 1.0 - 4.0 MONOCYTES 0.5 th/ul 0.0 - 0.7 EOSINOPHILS 0.1 th/ul 0.0 - 0.7 BASOPHILS 0.0 th/ul 0.0 - 0.2 MANUAL DIFF NOT INDICATED Bas Metab 2000 Pnl SerPl - 07/19/17 13:09 CHEM 8 (BASIC METABOLIC PROFILE) LAB BUN 46 mg/dl 7 - 18 CREATININE 1.4 mg/dl 0.7 - 1.2 SODIUM 135 mmol/L 137 - 145 POTASSIUM 4.6 mmol/L 3.4 - 5.3 CHLORIDE 100 mmol/L 98 - 107 CO2 27.0 mmol/L 22.0 - 30.0 GLUCOSE 107 mg/dl 65 - 110 CALCIUM 9.3 mg/dl 8.4 - 10.3 * CBC w/diff - 07/19/17 13:09 CBCWITHDIFFERENTIAL NRG WBC 4.4 th/ul 4.3 - 11.0 RBC 4.80 mil/ul 4.20 - 5.40 HEMOGLOBIN 13.2 g/dl 12.0 - 16.0 HEMATOCRIT 40.7 % 38.0 - 47.0 MCV 85 fL 82 - 100 MCH 27.5 pg 26.0 - 33.0 MCHC 32.5 g/dl 31.0 - 36.0 RDW 13.8 % 11.5 - 14.[address] 175 th/ul 150 - 375 NEUTROPHILS 62.3 % 50.0 - 76.0 LYMPHOCYTES 24.6 % 20.0 - 40.0 MONOCYTES 10.8 % 2.0 - 12.0 EOSINOPHILS 1.7 % 1.0 - 3.0 BASOPHILS 0.6 % 0.0 - 1.0 NEUTROPHILS 2.8 th/ul 1.4 - 6.5 LYMPHOCYTES 1.1 th/ul 1.0 - 4.0 MONOCYTES 0.5 th/ul 0.0 - 0.7 EOSINOPHILS 0.1 th/ul 0.0 - 0.7 BASOPHILS 0.0 th/ul 0.0 - 0.2 MANUAL DIFF NOT INDICATED NRG * Chem-8 - 07/19/17 13:09 CHEM8(BASICMETABOLICPROFILE) NRG BUN 46 mg/dl 7 - 18 CREATININE 1.4 mg/dl 0.7 - 1.2 SODIUM 135 mmol/L 137 - 145 POTASSIUM 4.6 mmol/L 3.4 - 5.3 CHLORIDE 100 mmol/L 98 - 107 CO2 27.0 mmol/L 22.0 - 30.0 GLUCOSE 107 mg/dl 65 - 110 CALCIUM 9.3 mg/dl 8.4 - 10.3 CBC WITH DIFFERENTIAL - 08/08/17 19:10 CBC WITH DIFFERENTIAL LAB WBC 4.7 th/ul 4.3 - 11.0 RBC 4.26 mil/ul 4.20 - 5.40 HEMOGLOBIN 12.1 g/dl 12.0 - 16.0 HEMATOCRIT 36.5 % 38.0 - 47.0 MCV 86 fL 82 - 100 MCH 28.3 pg 26.0 - 33.0 MCHC 33.0 g/dl 31.0 - 36.0 RDW 14.6 % 11.5 - 14.[address] 135 th/ul 150 - 375 NEUTROPHILS 3.0 th/ul 1.4 - 6.5 LYMPHOCYTES 1.1 th/ul 1.0 - 4.0 MONOCYTES 0.4 th/ul 0.0 - 0.7 EOSINOPHILS 0.2 th/ul 0.0 - 0.7 BASOPHILS 0.0 th/ul 0.0 - 0.2 MANUAL DIFF NOT INDICATED CHEM 14 COMPREHENSIVE METABOLIC PANEL - 08/08/17 19:10 CHEM 14 COMPREHENSIVE METABOLIC PANEL LAB SODIUM 138 mmol/L 137 - 145 POTASSIUM 4.1 mmol/L 3.4 - 5.3 CHLORIDE 105 mmol/L 98 - 107 CO2 26.0 mmol/L 22.0 - 30.0 CALCIUM 9.1 mg/dl 8.4 - 10.3 GLUCOSE 100 mg/dl 65 - 110 ALBUMIN 4.1 g/dl 3.3 - 5.0 ALK PHOS 37 IU/L 32 - 91 ALT/SGPT 18 U/L 9 - 72 AST/SGOT 14 U/L 5 - 40 BUN 42 mg/dl 7 - 18 CREATININE 1.1 mg/dl 0.7 - 1.2 BUN/CREAT 36.84 RATIO T BILIRUBIN 0.30 mg/dl 0.20 - 1.30 TOTAL PROTEIN 6.30 g/dl 5.49 - 7.83 AGE 66 yrs GFR NonAA 52 GFR AA 64 TROPONIN - 08/08/17 19:10 TROPONIN-I 0.000 ng/ml 0.000 - 0.050 CBC WITH DIFFERENTIAL - 11/24/17 13:50 CBC WITH DIFFERENTIAL LAB WBC 3.5 th/ul 4.3 - 11.0 RBC 4.20 mil/ul 4.20 - 5.40 HEMOGLOBIN 11.9 g/dl 12.0 - 16.0 HEMATOCRIT 35.2 % 38.0 - 47.0 MCV 84 fL 82 - 100 MCH 28.2 pg 26.0 - 33.0 MCHC 33.6 g/dl 31.0 - 36.0 RDW 13.1 % 11.5 - 14.[address] 104 th/ul 150 - 375 PLATELET EST DECREASED NEUTROPHILS 2.3 th/ul 1.4 - 6.5 LYMPHOCYTES 0.7 th/ul 1.0 - 4.0 MONOCYTES 0.2 th/ul 0.0 - 0.7 EOSINOPHILS 0.2 th/ul 0.0 - 0.7 BASOPHILS 0.0 th/ul 0.0 - 0.2 MANUAL DIFF NOT INDICATED D-DIMER - 11/24/17 13:50 D-DIMER 0.22 ug/ml FEU CHEM 14 COMPREHENSIVE METABOLIC PANEL - 11/24/17 13:50 CHEM 14 COMPREHENSIVE METABOLIC PANEL LAB SODIUM 140 mmol/L 137 - 145 POTASSIUM 4.3 mmol/L 3.4 - 5.3 CHLORIDE 105 mmol/L 98 - 107 CO2 26.0 mmol/L 22.0 - 30.0 CALCIUM 9.2 mg/dl 8.4 - 10.3 GLUCOSE 166 mg/dl 65 - 110 ALBUMIN 4.1 g/dl 3.3 - 5.0 ALK PHOS 37 IU/L 32 - 91 ALT/SGPT 26 U/L 9 - 72 AST/SGOT 29 U/L 5 - 40 BUN 25 mg/dl 7 - 18 CREATININE 1.0 mg/dl 0.7 - 1.2 BUN/CREAT 25.25 RATIO T BILIRUBIN 0.40 mg/dl 0.20 - 1.30 TOTAL PROTEIN 6.40 g/dl 5.49 - 7.83 AGE 67 yrs GFR NonAA 58 GFR AA 71 TROPONIN - 11/24/17 13:50 TROPONIN-I 0.000 ng/ml 0.000 - 0.050 WET PREP - 12/19/17 16:27 WET PREP LAB WET PREP - 12/19/17 16:27 WETPREP NRG CBC WITH DIFFERENTIAL - 12/29/17 22:40 CBC WITH DIFFERENTIAL LAB WBC 3.3 th/ul 4.3 - 11.0 RBC 3.92 mil/ul 4.20 - 5.40 HEMOGLOBIN 10.8 g/dl 12.0 - 16.0 HEMATOCRIT 32.5 % 38.0 - 47.0 MCV 83 fL 82 - 100 MCH 27.5 pg 26.0 - 33.0 MCHC 33.2 g/dl 31.0 - 36.0 RDW 13.6 % 11.5 - 14.[address] 104 th/ul 150 - 375 PLATELET EST DECREASED NEUTROPHILS 1.9 th/ul 1.4 - 6.5 LYMPHOCYTES 0.8 th/ul 1.0 - 4.0 MONOCYTES 0.3 th/ul 0.0 - 0.7 EOSINOPHILS 0.3 th/ul 0.0 - 0.7 BASOPHILS 0.0 th/ul 0.0 - 0.2 MANUAL DIFF NOT INDICATED RBC MORPH NORMAL CHEM 14 COMPREHENSIVE METABOLIC PANEL - 12/29/17 22:40 CHEM 14 COMPREHENSIVE METABOLIC PANEL LAB SODIUM 140 mmol/L 137 - 145 POTASSIUM 4.0 mmol/L 3.4 - 5.3 CHLORIDE 104 mmol/L 98 - 107 CO2 28.0 mmol/L 22.0 - 30.0 CALCIUM 8.9 mg/dl 8.4 - 10.3 GLUCOSE 114 mg/dl 65 - 110 ALBUMIN 3.8 g/dl 3.3 - 5.0 ALK PHOS 46 IU/L 32 - 91 ALT/SGPT 30 U/L 9 - 72 AST/SGOT 25 U/L 5 - 40 BUN 28 mg/dl 7 - 18 CREATININE 1.1 mg/dl 0.7 - 1.2 BUN/CREAT 25.93 RATIO T BILIRUBIN 0.40 mg/dl 0.20 - 1.30 TOTAL PROTEIN 6.50 g/dl 5.49 - 7.83 AGE 67 yrs GFR NonAA 52 GFR AA 63 LIPASE - 12/29/17 22:40 LIPASE 23 U/L 22 - 51 TROPONIN - 12/29/17 22:40 TROPONIN-I 0.010 ng/ml 0.000 - 0.050 PT/PTT - 12/29/17 22:40 PROTIME 12.2 SEC 11.8 - 14.3 INR 0.91 PTT 25.2 SEC 26.4 - 36.2 URINALYSIS W/ MICROSCOPIC - 01/10/18 10:59 URINALYSIS W/ MICROSCOPIC LAB Color STRAW Character CLEAR GLUCOSE NEGATIVE Bilirubin NEGATIVE Ketones NEGATIVE Sp [place] 1.008 Ph 6.0 Protein NEGATIVE Urobilinogen NEGATIVE Nitrite NEGATIVE Blood NEGATIVE Leukocytes TRACE Bacteria NONE SEEN WBC/ 0-2 RBC/ 0-2 Squa Epi Cell 0-2 Culture Not indicat CULTURE URINE - 01/10/18 10:59 CULTURE URINE LAB TYPE OF SPECIMEN VOID COMMENT: FINDINGS D1 GROWTH NR FINDINGS D2 GROWTH NR URINALYSIS - 01/14/18 20:45 URINALYSIS LAB Color YELLOW Character SL CLOUDY GLUCOSE NEGATIVE Bilirubin NEGATIVE Ketones NEGATIVE Sp [place] 1.011 Ph 5.0 Protein NEGATIVE Urobilinogen NEGATIVE Nitrite NEGATIVE Blood 1+ Leukocytes TRACE Microscopic See Below Urine Volume 12 ml Specimen Type SPUN Bacteria RARE WBC/ 11-25 RBC/ 0-2 Squa Epi Cell 0-2 Mucous RARE Yeast 1+ Culture To Follow CBC WITH DIFFERENTIAL - 01/15/18 16:03 CBC WITH DIFFERENTIAL LAB WBC 5.6 th/ul 4.3 - 11.0 RBC 4.32 mil/ul 4.20 - 5.40 HEMOGLOBIN 12.0 g/dl 12.0 - 16.0 HEMATOCRIT 36.5 % 38.0 - 47.0 MCV 84 fL 82 - 100 MCH 27.8 pg 26.0 - 33.0 MCHC 32.9 g/dl 31.0 - 36.0 RDW 13.9 % 11.5 - 14.[address] 126 th/ul 150 - 375 NEUTROPHILS 4.2 th/ul 1.4 - 6.5 LYMPHOCYTES 0.7 th/ul 1.0 - 4.0 MONOCYTES 0.4 th/ul 0.0 - 0.7 EOSINOPHILS 0.2 th/ul 0.0 - 0.7 BASOPHILS 0.0 th/ul 0.0 - 0.2 MANUAL DIFF NOT INDICATED CHEM 14 COMPREHENSIVE METABOLIC PANEL - 01/15/18 16:03 CHEM 14 COMPREHENSIVE METABOLIC PANEL LAB SODIUM 132 mmol/L 137 - 145 POTASSIUM 4.1 mmol/L 3.4 - 5.3 CHLORIDE 94 mmol/L 98 - 107 CO2 29.0 mmol/L 22.0 - 30.0 CALCIUM 9.6 mg/dl 8.4 - 10.3 GLUCOSE 143 mg/dl 65 - 110 ALBUMIN 4.2 g/dl 3.3 - 5.0 ALK PHOS 55 IU/L 32 - 91 ALT/SGPT 37 U/L 9 - 72 AST/SGOT 32 U/L 5 - 40 BUN 30 mg/dl 7 - 18 CREATININE 1.1 mg/dl 0.7 - 1.2 BUN/CREAT 28.57 RATIO T BILIRUBIN 0.70 mg/dl 0.20 - 1.30 TOTAL PROTEIN 7.20 g/dl 5.49 - 7.83 AGE 67 yrs GFR NonAA 52 GFR AA 63 AMYLASE - 01/15/18 16:03 AMYLASE 61 U/L 36 - 128 LIPASE - 01/15/18 16:03 LIPASE 25 U/L 22 - 51 URINALYSIS - 01/15/18 16:15 URINALYSIS LAB Color YELLOW Character CLEAR GLUCOSE NEGATIVE Bilirubin NEGATIVE Ketones NEGATIVE Sp [place] 1.016 Ph 6.0 Protein NEGATIVE Urobilinogen NEGATIVE Nitrite NEGATIVE Blood NEGATIVE Leukocytes NEGATIVE Microscopic Not Indicat CBC W Auto Diff Bld - 01/28/18 10:59 CBC WITH DIFFERENTIAL LAB WBC 3.7 th/ul 4.3 - 11.0 RBC 3.96 mil/ul 4.20 - 5.40 HEMOGLOBIN 11.1 g/dl 12.0 - 16.0 HEMATOCRIT 33.7 % 38.0 - 47.0 MCV 85 fL 82 - 100 MCH 28.1 pg 26.0 - 33.0 MCHC 33.0 g/dl 31.0 - 36.0 RDW 13.7 % 11.5 - 14.[address] 123 th/ul 150 - 375 PLATELET EST DECREASED NEUTROPHILS 2.3 th/ul 1.4 - 6.5 LYMPHOCYTES 0.8 th/ul 1.0 - 4.0 MONOCYTES 0.3 th/ul 0.0 - 0.7 EOSINOPHILS 0.2 th/ul 0.0 - 0.7 BASOPHILS 0.0 th/ul 0.0 - 0.2 MANUAL DIFF NOT INDICATED RBC MORPH NORMAL CHEM 14 COMPREHENSIVE METABOLIC PANEL - 01/28/18 10:59 CHEM 14 COMPREHENSIVE METABOLIC PANEL LAB SODIUM 135 mmol/L 137 - 145 POTASSIUM 4.5 mmol/L 3.4 - 5.3 CHLORIDE 99 mmol/L 98 - 107 CO2 27.0 mmol/L 22.0 - 30.0 CALCIUM 9.3 mg/dl 8.4 - 10.3 GLUCOSE 110 mg/dl 65 - 110 ALBUMIN 4.2 g/dl 3.3 - 5.0 ALK PHOS 51 IU/L 32 - 91 ALT/SGPT 36 U/L 9 - 72 AST/SGOT 24 U/L 5 - 40 BUN 45 mg/dl 7 - 18 CREATININE 1.7 mg/dl 0.7 - 1.2 BUN/CREAT 26.16 RATIO T BILIRUBIN 0.50 mg/dl 0.20 - 1.30 TOTAL PROTEIN 6.60 g/dl 5.49 - 7.83 AGE 67 yrs GFR NonAA 32 GFR AA 38 Encounters ACCT No. Visit Date/Time Discharge Status Pt. Type Provider Facility Loc./Unit Complaint [id number] 08/05/2013 10:11:00 08/05/2013 23:59:59 [id number] 10/04/2011 18:56:00 10/04/2011 23:59:59 CLS Emergency JACOB LANDRUM DO [id number] 09/25/2011 21:27:00 09/25/2011 23:59:59 CLS Emergency MINDY ROSARIO, ADITI Albarran [id number] 08/07/2011 15:10:00 08/07/2011 23:59:59 CLS Outpatient JACOB LANDRUM DO [id number] 07/26/2011 20:30:00 07/26/2011 23:59:59 CLS Emergency ARNOLDO WINSTON MD [id number] 05/02/2011 10:52:00 05/02/2011 23:59:59 CLS Outpatient JACOB LANDRUM DO [id number] 12/12/2004 00:00:00 12/12/2004 23:59:59 CLS [facility] THER[facility]IST JEFFREY [facility] 12/13/2017 16:14:12 ACT Document Registration [id number] 01/15/2018 15:42:00 01/15/2018 17:58:00 DIS Emergency NORBERTO HUDSON [id number] 01/14/2018 20:20:00 01/14/2018 21:33:00 DIS Emergency SATHISH ARENAS [id number] 01/10/2018 10:55:00 01/10/2018 23:59:59 CLS Outpatient CISCO PRADO [id number] 12/29/2017 22:20:00 12/29/2017 23:28:00 DIS Emergency SATHISH ARENAS [id number] 12/19/2017 16:24:00 12/19/2017 23:59:59 CLS Outpatient CISCO PRADO [id number] 10/21/2017 10:29:00 12/05/2017 09:18:00 DIS Outpatient Laine MERLOS [id number] 11/24/2017 13:25:00 11/24/2017 14:37:00 DIS Emergency NORBERTO HUDSON [id number] 10/10/2017 14:10:00 10/10/2017 14:10:00 DIS Outpatient BIANKA ENCINAS [id number] 08/19/2017 08:16:00 08/19/2017 08:16:00 DIS Outpatient SLIEF, BIANKA [id number] 08/08/2017 18:54:00 08/08/2017 20:28:00 DIS Emergency CECILIO LOVE [id number] 07/19/2017 13:01:00 07/19/2017 23:59:59 CLS Outpatient DEMETRI SWEENEY [id number] 07/07/2017 14:05:00 07/07/2017 15:03:00 DIS Emergency NORBERTO HUDSON [id number] 07/04/2017 14:14:00 07/04/2017 23:59:59 CLS Outpatient Laine MERLOS [id number] 06/27/2017 12:41:00 06/27/2017 15:17:00 DIS Emergency SATHISH ARENAS [id number] 06/18/2017 13:10:00 06/18/2017 13:43:00 DIS Emergency SATHISH ARENAS [id number] 05/06/2017 17:10:00 05/06/2017 17:50:00 DIS Emergency KEDAR CASTILLO [id number] 03/26/2017 14:59:00 03/26/2017 23:59:59 CLS Outpatient CISCO PRADO [id number] 03/07/2017 10:35:00 03/07/2017 23:59:59 CLS Outpatient CISCO PRADO [id number] 02/15/2017 17:23:00 02/15/2017 18:25:00 DIS Emergency KEDAR CASTILLO [facility] 047 [id number] 12/27/2016 09:59:00 12/30/2016 14:25:00 DIS Inpatient CISCO PRADO [facility] 345 [id number] 11/15/2016 14:51:00 11/15/2016 14:51:00 DIS Outpatient MITA LESLIE [id number] 10/15/2016 16:04:00 10/15/2016 23:59:59 CLS Outpatient SLIEF, BIANKA [id number] 10/09/2016 08:56:00 10/09/2016 08:56:00 DIS Outpatient NOEMI, CISCO SHIN [id number] 08/14/2016 09:40:00 09/18/2016 14:49:00 DIS Outpatient NOEMICISCO [id number] 08/26/2016 14:56:00 08/26/2016 16:43:00 DIS Emergency DEEPASATHISH Cee [id number] 08/24/2016 15:12:00 08/24/2016 15:35:00 DIS Emergency DEEPASATHISH PEREZ [id number] 08/20/2016 10:24:00 08/20/2016 23:59:59 CLS Outpatient SLIEF, BIANKA [id number] 07/25/2016 23:54:00 07/26/2016 01:25:00 DIS Emergency NORBERTO HUDSON [id number] 07/06/2016 10:03:00 07/06/2016 10:46:00 DIS Emergency CECILIO LOVE [id number] 06/25/2016 10:06:00 06/25/2016 23:59:59 CLS Outpatient Deion WRIGHT [id number] 06/08/2016 12:04:00 06/08/2016 23:59:59 CLS Outpatient ALBERT FRANCOIS [id number] 05/25/2016 16:37:00 05/25/2016 18:18:00 DIS Emergency SHAE SEO [id number] 05/05/2016 15:26:00 05/05/2016 17:24:00 DIS Emergency NORBERTO HUDSON [id number] 01/26/2016 15:12:00 01/26/2016 17:07:00 DIS Emergency NORBERTO HUDSON [id number] 01/13/2016 10:31:00 01/13/2016 23:59:59 CLS Outpatient ALBERT FRANCOIS [id number] 12/01/2015 21:43:00 12/01/2015 22:39:00 DIS Emergency NORBERTO HUDSON [id number] 01/28/2018 10:53:00 Document Registration [id number] 07/10/2016 00:00:00 07/10/2016 23:59:59 CLS Outpatient Ramu Jorgensen [facility] O [id number] 01/28/2018 10:53:00 Document Registration [id number] 01/15/2018 15:42:00 Document Registration [id number] 01/14/2018 20:20:00 Document Registration [id number] 01/10/2018 10:55:00 Document Registration [id number] 12/29/2017 22:20:00 Document Registration [id number] 12/19/2017 16:24:00 Document Registration [id number] 11/24/2017 13:25:00 Document Registration [id number] 08/08/2017 18:54:00 Document Registration [id number] 07/19/2017 13:01:00 Document Registration [id number] 07/07/2017 14:05:00 Document Registration [id number] 06/27/2017 12:41:00 Document Registration [id number] 03/26/2017 14:59:00 Document Registration [id number] 03/07/2017 10:35:00 Document Registration [id number] 12/27/2016 08:17:00 Document Registration [id number] 11/15/2016 14:51:00 Document Registration [id number] 08/26/2016 14:56:00 Document Registration [id number] 08/20/2016 10:24:00 Document Registration [id number] 07/25/2016 23:54:00 Document Registration [id number] 05/25/2016 16:37:00 Document Registration [id number] 05/05/2016 15:26:00 Document Registration [id number] 01/26/2016 15:12:00 Document Registration [id number] 01/13/2016 10:31:00 Document Registration [id number] 12/04/2017 16:03:53 Document Registration [id number] 01/16/2018 14:45:00 01/16/2018 23:59:59 CLS Outpatient [facility] [id number] 12/19/2017 14:30:00 Document Registration [id number] 07/19/2017 12:30:00 Document Registration [id number] 03/26/2017 15:15:00 Document Registration [id number] 03/26/2017 09:59:00 Document Registration [id number] 03/07/2017 10:35:00 Document Registration [id number] 11/18/2017 20:28:00 11/22/2017 12:47:45 DIS Outpatient KWADWO JONES [id number]
[2018-02-04 20:38] LABS: ALANINE AMINOTRANSFERASE 32 U/L (0-55); ALBUMIN 4.2 GM/DL (3.2-4.5); ALKALINE PHOSPHATASE 47 U/L (40-136); AMYLASE 61 U/L (25-125); BILIRUBIN,TOTAL 0.2 MG/DL (0.1-1.0); BUN/CREATININE RATIO 20; CALCIUM 8.6 MG/DL (8.5-10.1); CARBON DIOXIDE 23 MMOL/L (21-32); CHLORIDE 105 MMOL/L (98-107); CREATINE KINASE 46 U/L (29-168); CREATININE SERUM 1.61 MG/DL (0.60-1.30); GFR ESTIMATED 32; GLUCOSE 108 MG/DL (70-105); LIPASE 29 U/L (8-78); MAGNESIUM 1.7 MG/DL (1.8-2.4); POTASSIUM 3.9 MMOL/L (3.6-5.0); SODIUM 139 MMOL/L (135-145); TOTAL PROTEIN 6.5 GM/DL (6.4-8.2)
[2018-02-04] MEDS ORDERED: MAGNESIUM 1 GM/100 ML IVPB 100 ML IV ONE (21:00)
--- NOTE | 2018-02-04 21:05 | Diagnostic Imaging Report ---
EXAMINATION: Portable erect AP chest at 8:30 PM INDICATION: Shortness of breath The heart size is at the upper limits of normal but stable when compared to 04/17/2007. The lungs are clear. There is no sign of failure, pneumonia or a pleural effusion. The mediastinum is not widened. The osseous structures are intact. IMPRESSION: There is no evidence for an acute cardiopulmonary abnormality. Dictated by: Dictated on workstation # [id number]
--- OUTSIDE RECORDS SUMMARY | 2018-02-04 21:40 | XMS REPORT | Continuity of Care Document ---
Author Author [facility] Organization [facility] Address Unknown Phone Unavailable Allergies Active Description Code Type Severity Reaction Onset Reported/Identified Relationship to Patient Clinical Status Yes ceftriaxone Drug Allergy N/A N/A Confirmed or Verified Yes No Known Drug Allergy Drug Allergy N/A N/A Confirmed but inactive Yes No Known Drug Allergies [id number] Miscellaneous Allergy Moderate N/A Yes PENICILLIN [id number] Drug Allergy Unknown N/A Yes PENICILLINS (CLASS) [id number] Drug Allergy Unknown N/A Yes ZITHROMAX [id number] Drug Allergy Unknown N/A Yes Penicillins [id number] N/A N/A Yes ROCEPHIN Drug Allergy Hives [...] As Directed <section xmlns="urn:hl7-org:v3" xmlns:xsi="http://www.3.org/2001/XMLSchema-instance"> <templateId root= "2.16.840.1.656523.10.20.22.2.5" /> <templateId root= "2.16.840.1.174658.10.20.22.4.3" /> <code codeSystemName="LOINC" codeSystem= "2.16.840.1.022129.6.1" code="82514-9" /> <title>Problems</title> <text> < table> <thead> <tr> [...] /> </tr> <tr> <td>08/08/2011</td> < td>LUCITA DO, JACBO Albarran</td> <td>D</td> <td>300.00</td> <td>ANXIETY STATE NOS</td> <td [...] <td /> </ tr> <tr> <td>08/08/2011</td> <td>LUCITA SHARMA, JACOB Albarran</ td> <td>D</td> <td>E849.9</td> <td>ACCIDENT IN PLACE NOS</td> <td /> </tr> <tr> <td>08/08/2011</td> <td>LUCITA DO, JACOB Albarran</td> <td>D</td> <td>E930.5</ td> <td>ADV EFF CEPHALOSPORIN</td> <td /> </tr> <tr> <td>09/25/2011</td> <td>MINDY ROSARIO, ADITI W</td> <td>D</td> <td>112.1</td> <td>CANDIDAL VULVOVAGINITIS</td> <td /> </tr> <tr> <td>10/04/2011</td> <td>LUCITA SHARMA, JACOB Albarran</td> <td>D</td> <td>789.06</td> <td>ABDOMINAL PAIN EPIGASTRI</td> <td /> </tr> <tr> <td>03/23/2015</td> <td>[facility] [place] [facility]</td> <td>W</td> <td>296.35</td> <td>Major Depressive Disorder, Recurrent, In Partial Remission</td> <td /> </tr> <tr> <td>03/23/2015</td> <td>[facility] [place] [facility]< /td> <td>W</td> <td>300.02</td> <td>Generalized Anxiety Disorder</td> <td /> </tr> <tr> <td></td> <td>[facility] [place] [facility]</td> <td>W</td> <td>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</td> <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</td> <td [...] < td>Hypoxemia</td> <td /> </tr> <tr> <td>2016</td> <td>[facility]</td> <td>S</td> <td >Z79.1</td> <td>nursing home (current) use of non-steroidal anti- inflammatories (NSAID)</td> <td /> </tr> <tr> < td>12/30/2016</td> <td>[facility]</td> <td>S</td> <td>Z79.52</td> <td>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 </td> <td /> </tr> <tr> <td>12/30/2016</td> <td>[facility]</td> <td>S</td> <td>Z79.82</td> <td>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</td> <td /> </ tr> <tr> <td>12/30/2016</td> <td>[facility]</ td> <td>S</td> <td>Z79.83</td> <td>terminal press operator (current ) use of 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</td> <td /> </tr> <tr> <td>12/30/2016</td> <td>[facility]</td> <td>S</td> <td>Z79.899</td> <td>Other shelter (current) drug therapy</td > <td /> </tr> [...] (primary) hypertension</td> <td /> </tr> <tr> <td>01/15/2018</td> <td>[facility]</td> <td>S</td> <td>K21.9</td> <td>Gastro-esophageal reflux disease without [...] <entry typeCode="DRIV"> <act moodCode="EVN" classCode ="ACT"> <templateId root="2.16.840.1.571755.10..4.3" /> <id nullFlavor="UNK" /> <code codeSystem="2.16.840.1.669292.5.6" code="CONC" displayName="Concern" /> <statusCode code="completed" /> < effectiveTime> <low value="20110502" /> </effectiveTime> < entryRelationship typeCode="SUBJ"> <observation moodCode="EVN" classCode= "OBS"> <templateId root="2.16.840.1.322878.10..4.4" /> < id nullFlavor="UNK" /> <code codeSystem="2.16.840.1.157751.6.96" code= "199720902" displayName="Diagnosis" /> <statusCode code="completed" /> <value codeSystem="I9" xsi:type="CD" code="616.10" displayName= "VAGINITIS NOS" /> </observation> </entryRelationship> </act> </ entry> <entry typeCode="DRIV"> <act moodCode="EVN" classCode="ACT"> < templateId root="216.840.1.036248.10..22.4.3" /> <id nullFlavor="UNK" / > <code codeSystem="216.840.1.272447.5.6" code="CONC" displayName="Concern " /> <statusCode code="completed" /> <effectiveTime> <low value ="51185804" /> </effectiveTime> <entryRelationship typeCode="SUBJ"> <observation moodCode="EVN" classCode="OBS"> <templateId root= "16.840.1.670079.10.22.4.4" /> <id nullFlavor="UNK" /> < code codeSystem="216.840.1.912425.6.96" code="010112108" displayName="Diagnosis " /> <statusCode code="completed" /> <value codeSystem="I9" xsi:type="CD" code="300.00" displayName="ANXIETY STATE NOS" /> </ observation> </entryRelationship> </act> </entry> <entry typeCode= "DRIV"> <act moodCode="EVN" classCode="ACT"> <templateId root= "16.840.1.702405.10.2022.4.3" /> <id nullFlavor="UNK" /> <code codeSystem="216.840.1.087037.5.6" code="CONC" displayName="Concern" /> < statusCode code="completed" /> <effectiveTime> <low value="20110727 " /> </effectiveTime> <entryRelationship typeCode="SUBJ"> < observation moodCode="EVN" classCode="OBS"> <templateId root= "840.1.178779.10.22.4.4" /> <id nullFlavor="UNK" /> < code codeSystem="840.1.749040.6.96" code="755101359" displayName="Diagnosis " /> <statusCode code="completed" /> <value codeSystem="I9" xsi:type="CD" code="530.81" displayName="ESOPHAGEAL REFLUX" /> </ observation> </entryRelationship> </act> </entry> <entry typeCode= "DRIV"> <act moodCode="EVN" classCode="ACT"> <templateId root= "840.1.701870.10.22.4.3" /> <id nullFlavor="UNK" /> <code codeSystem="08.09.840.1.372109.5.6" code="CONC" displayName="Concern" /> < statusCode code="completed" /> <effectiveTime> <low value="20110727 " /> </effectiveTime> <entryRelationship typeCode="SUBJ"> < observation moodCode="EVN" classCode="OBS"> <templateId root= "840.1.977252.10.2022.4.4" /> <id nullFlavor="UNK" /> < code codeSystem="08.09.840.1.542596.6.96" code="585747383" displayName="Diagnosis " /> <statusCode code="completed" /> <value codeSystem="I9" xsi:type="CD" code="786.59" displayName="CHEST PAIN NEC" /> </observation > </entryRelationship> </act> </entry> <entry typeCode="DRIV"> < act moodCode="EVN" classCode="ACT"> <templateId root= "08.09.840.1.126875.10.20.22.4.3" /> <id nullFlavor="UNK" /> <code codeSystem="2.840.1.224234.5.6" code="CONC" displayName="Concern" /> < statusCode code="completed" /> <effectiveTime> <low value="20110727 " /> </effectiveTime> <entryRelationship typeCode="SUBJ"> < observation moodCode="EVN" classCode="OBS"> <templateId root= "08.09.840.1.627648.10..22.4.4" /> <id nullFlavor="UNK" /> < code codeSystem="2.840.1.557588.6.96" code="661646434" displayName="Diagnosis " /> <statusCode code="completed" /> <value codeSystem="I9" xsi:type="CD" code="789.06" displayName="ABDOMINAL PAIN EPIGASTRI" /> </ observation> </entryRelationship> </act> </entry> <entry typeCode= "DRIV"> <act moodCode="EVN" classCode="ACT"> <templateId root= "08.09.840.1.981993.10..22.4.3" /> <id nullFlavor="UNK" /> <code codeSystem="216.840.1.110327.5.6" code="CONC" displayName="Concern" /> < statusCode code="completed" /> <effectiveTime> <low value="20110808 " /> </effectiveTime> <entryRelationship typeCode="SUBJ"> < observation moodCode="EVN" classCode="OBS"> <templateId root= "08.09.840.1.712684.10..22.4.4" /> <id nullFlavor="UNK" /> < code codeSystem="840.1.090693.6.96" code="171838828" displayName="Diagnosis " /> <statusCode code="completed" /> <value codeSystem="I9" xsi:type="CD" code="300.00" displayName="ANXIETY STATE NOS" /> </ observation> </entryRelationship> </act> </entry> <entry typeCode= "DRIV"> <act moodCode="EVN" classCode="ACT"> <templateId root= "08.09.840.1.198160.10.20.22.4.3" /> <id nullFlavor="UNK" /> <code codeSystem="08.09.840.1.068866.5.6" code="CONC" displayName="Concern" /> < statusCode code="completed" /> <effectiveTime> <low value="15006034 " /> </effectiveTime> <entryRelationship typeCode="SUBJ"> < observation moodCode="EVN" classCode="OBS"> <templateId root= "08.09.840.1.429930.10.20.22.4.4" /> <id nullFlavor="UNK" /> < code codeSystem="08.09.840.1.009845.6.96" code="890303907" displayName="Diagnosis " /> <statusCode code="completed" /> <value codeSystem="I9" xsi:type="CD" code="401.9" displayName="HYPERTENSION NOS" /> </ observation> </entryRelationship> </act> </entry> <entry typeCode= "DRIV"> <act moodCode="EVN" classCode="ACT"> <templateId root= "840.1.991224.10...4.3" /> <id nullFlavor="UNK" /> <code codeSystem="840.1.239024.5.6" code="CONC" displayName="Concern" /> < statusCode code="completed" /> <effectiveTime> <low value="20110808 " /> </effectiveTime> <entryRelationship typeCode="SUBJ"> < observation moodCode="EVN" classCode="OBS"> <templateId root= "840.1.347502.04.12.22.4.4" /> <id nullFlavor="UNK" /> < code codeSystem="08.09.840.1.438487.6.96" code="523284071" displayName="Diagnosis " /> <statusCode code="completed" /> <value codeSystem="I9" xsi:type="CD" code="485" displayName="BRONCOPNEUMONIA ORG NOS" /> </ observation> </entryRelationship> </act> </entry> <entry typeCode= "DRIV"> <act moodCode="EVN" classCode="ACT"> <templateId root= "08.09.840.1.889812.10..4.3" /> <id nullFlavor="UNK" /> <code codeSystem="08.09.840.1.487120.5.6" code="CONC" displayName="Concern" /> < statusCode code="completed" /> <effectiveTime> <low value="20110808 " /> </effectiveTime> <entryRelationship typeCode="SUBJ"> < observation moodCode="EVN" classCode="OBS"> <templateId root= "08.09.840.1.993515...4.4" /> <id nullFlavor="UNK" /> < code codeSystem="216.840.1.926511.6.96" code="749842699" displayName="Diagnosis " /> <statusCode code="completed" /> <value codeSystem="I9" xsi:type="CD" code="530.81" displayName="ESOPHAGEAL REFLUX" /> </ observation> </entryRelationship> </act> </entry> <entry typeCode= "DRIV"> <act moodCode="EVN" classCode="ACT"> <templateId root= "2.16.840.1.213703.10..22.4.3" /> <id nullFlavor="UNK" /> <code codeSystem="2.16.840.1.904069.5.6" code="CONC" displayName="Concern" /> < statusCode code="completed" /> <effectiveTime> <low value="11284142 " /> </effectiveTime> <entryRelationship typeCode="SUBJ"> < observation moodCode="EVN" classCode="OBS"> <templateId root= "216.840.1.354383.10..22.4.4" /> <id nullFlavor="UNK" /> < code codeSystem="2.16.840.1.561020.6.96" code="529105771" displayName="Diagnosis " /> <statusCode code="completed" /> <value codeSystem="I9" xsi:type="CD" code="708.0" displayName="ALLERGIC URTICARIA" /> </ observation> </entryRelationship> </act> </entry> <entry typeCode= "DRIV"> <act moodCode="EVN" classCode="ACT"> <templateId root= "216.840.1.700808.10..22.4.3" /> <id nullFlavor="UNK" /> <code codeSystem="08.09.840.1.101039.5.6" code="CONC" displayName="Concern" /> < statusCode code="completed" /> <effectiveTime> <low value="20110808 " /> </effectiveTime> <entryRelationship typeCode="SUBJ"> < observation moodCode="EVN" classCode="OBS"> <templateId root= "840.1.191800...4.4" /> <id nullFlavor="UNK" /> < code codeSystem="840.1.276694.6.96" code="155763861" displayName="Diagnosis " /> <statusCode code="completed" /> <value codeSystem="I9" xsi:type="CD" code="995.27" displayName="DRUG ALLERGY NEC" /> </ observation> </entryRelationship> </act> </entry> <entry typeCode= "DRIV"> <act moodCode="EVN" classCode="ACT"> <templateId root= "840.1.964597.04.12.22.4.3" /> <id nullFlavor="UNK" /> <code codeSystem="840.1.256373.5.6" code="CONC" displayName="Concern" /> < statusCode code="completed" /> <effectiveTime> <low value="20110808 " /> </effectiveTime> <entryRelationship typeCode="SUBJ"> < observation moodCode="EVN" classCode="OBS"> <templateId root= "08.09.840.1.508680.04.12.22.4.4" /> <id nullFlavor="UNK" /> < code codeSystem="08.09.840.1.838543.6.96" code="553248313" displayName="Diagnosis " /> <statusCode code="completed" /> <value codeSystem="I9" xsi:type="CD" code="E849.9" displayName="ACCIDENT IN PLACE NOS" /> </ observation> </entryRelationship> </act> </entry> <entry typeCode= "DRIV"> <act moodCode="EVN" classCode="ACT"> <templateId root= "08.09.840.1.364495.10.20.22.4.3" /> <id nullFlavor="UNK" /> <code codeSystem="2.840.1.414415.5.6" code="CONC" displayName="Concern" /> < statusCode code="completed" /> <effectiveTime> <low value="20110808 " /> </effectiveTime> <entryRelationship typeCode="SUBJ"> < observation moodCode="EVN" classCode="OBS"> <templateId root= "08.09.840.1.531776.10.22.4.4" /> <id nullFlavor="UNK" /> < code codeSystem="2.840.1.923790.6.96" code="384153629" displayName="Diagnosis " /> <statusCode code="completed" /> <value codeSystem="I9" xsi:type="CD" code="E930.5" displayName="ADV EFF CEPHALOSPORIN" /> </ observation> </entryRelationship> </act> </entry> <entry typeCode= "DRIV"> <act moodCode="EVN" classCode="ACT"> <templateId root= "08.09.840.1.166719.10.2022.4.3" /> <id nullFlavor="UNK" /> <code codeSystem="2.840.1.233747.5.6" code="CONC" displayName="Concern" /> < statusCode code="completed" /> <effectiveTime> <low value="20110926 " /> </effectiveTime> <entryRelationship typeCode="SUBJ"> < observation moodCode="EVN" classCode="OBS"> <templateId root= "08.09.840.1.642692.10.2022.4.4" /> <id nullFlavor="UNK" /> < code codeSystem="08.09.840.1.159271.6.96" code="841970225" displayName="Diagnosis " /> <statusCode code="completed" /> <value codeSystem="I9" xsi:type="CD" code="112.1" displayName="CANDIDAL VULVOVAGINITIS" /> </ observation> </entryRelationship> </act> </entry> <entry typeCode= "DRIV"> <act moodCode="EVN" classCode="ACT"> <templateId root= "08.09.840.1.405063.10.22.4.3" /> <id nullFlavor="UNK" /> <code codeSystem="2.840.1.342912.5.6" code="CONC" displayName="Concern" /> < statusCode code="completed" /> <effectiveTime> <low value="20111005 " /> </effectiveTime> <entryRelationship typeCode="SUBJ"> < observation moodCode="EVN" classCode="OBS"> <templateId root= "08.09.840.1.989052.10.2022.4.4" /> <id nullFlavor="UNK" /> < code codeSystem="216.840.1.224984.6.96" code="317242065" displayName="Diagnosis " /> <statusCode code="completed" /> <value codeSystem="I9" xsi:type="CD" code="789.06" displayName="ABDOMINAL PAIN EPIGASTRI" /> </ observation> </entryRelationship> </act> </entry> <entry typeCode= "DRIV"> <act moodCode="EVN" classCode="ACT"> <templateId root= "16.840.1.776307.10..22.4.3" /> <id nullFlavor="UNK" /> <code codeSystem="2.840.1.457659.5.6" code="CONC" displayName="Concern" /> < statusCode code="completed" /> <effectiveTime> <low value="20150324 " /> </effectiveTime> <entryRelationship typeCode="SUBJ"> < observation moodCode="EVN" classCode="OBS"> <templateId root= "08.09.840.1.557874.10...4.4" /> <id nullFlavor="UNK" /> < code codeSystem="216.840.1.380229.6.96" code="660714334" displayName="Diagnosis " /> <statusCode code="completed" /> <value codeSystem="I9CDX " xsi:type="CD" code="296.35" 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, Recurrent , In Partial Remission" /> </observation> </entryRelationship> </ act> </entry> <entry typeCode="DRIV"> <act moodCode="EVN" classCode="ACT"> <templateId root="08.09.840.1.926586.10..22.4.3" /> <id nullFlavor= "UNK" /> <code codeSystem="216.840.1.663956.5.6" code="CONC" displayName= "Concern" /> <statusCode code="completed" /> <effectiveTime> < low value="20150324" /> </effectiveTime> <entryRelationship typeCode= "SUBJ"> <observation moodCode="EVN" classCode="OBS"> < templateId root="08.09.840.1.527134.10..22.4.4" /> <id nullFlavor="UNK " /> <code codeSystem="840.1.071560.6.96" code="714285014" displayName="Diagnosis" /> <statusCode code="completed" /> < value codeSystem="I9CDX" xsi:type="CD" code="300.02" displayName="Generalized Anxiety Disorder" /> </observation> </entryRelationship> </act> </entry> <entry typeCode="DRIV"> <act moodCode="EVN" classCode="ACT"> < templateId root="08.09.840.1.067496.10..22.4.3" /> <id nullFlavor="UNK" / > <code codeSystem="2.840.1.396897.5.6" code="CONC" displayName="Concern " /> <statusCode code="completed" /> <effectiveTime> <low value ="90545925" /> </effectiveTime> <entryRelationship typeCode="SUBJ"> <observation moodCode="EVN" classCode="OBS"> <templateId root= "08.09.840.1.205416.10.20.22.4.4" /> <id nullFlavor="UNK" /> < code codeSystem="08.09.840.1.185730.6.96" code="974096416" displayName="Diagnosis " /> <statusCode code="completed" /> <value codeSystem="I9CDX " xsi:type="CD" code="317" 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" /> </ observation> </entryRelationship> </act> </entry> <entry typeCode= "DRIV"> <act moodCode="EVN" classCode="ACT"> <templateId root= "08.09.840.1.845523.10..4.3" /> <id nullFlavor="UNK" /> <code codeSystem="840.1.929718.5.6" code="CONC" displayName="Concern" /> < statusCode code="completed" /> <effectiveTime> <low value="20151202 " /> </effectiveTime> <entryRelationship typeCode="SUBJ"> < observation moodCode="EVN" classCode="OBS"> <templateId root= "840.1.164940...4.4" /> <id nullFlavor="UNK" /> < code codeSystem="08.09.840.1.945560.6.96" code="530123351" displayName="Diagnosis " /> <statusCode code="completed" /> <value codeSystem="" xsi: type="CD" code="J44.9" displayName="Chronic obstructive pulmonary disease, unspecified" /> </observation> </entryRelationship> </act> </ entry> <entry typeCode="DRIV"> <act moodCode="EVN" classCode="ACT"> < templateId root="08.09.840.1.115908.10..4.3" /> <id nullFlavor="UNK" / > <code codeSystem="840.1.649736.5.6" code="CONC" displayName="Concern " /> <statusCode code="completed" /> <effectiveTime> <low value ="20160126" /> </effectiveTime> <entryRelationship typeCode="SUBJ"> <observation moodCode="EVN" classCode="OBS"> <templateId root= "840.1.536953.04.12.22.4.4" /> <id nullFlavor="UNK" /> < code codeSystem="216.840.1.645672.6.96" code="157827001" displayName="Diagnosis " /> <statusCode code="completed" /> <value codeSystem="" xsi: type="CD" code="E86.0" displayName="Dehydration" /> </observation> < /entryRelationship> </act> </entry> <entry typeCode="DRIV"> <act moodCode="EVN" classCode="ACT"> <templateId root= "216.840.1.757141.10..4.3" /> <id nullFlavor="UNK" /> <code codeSystem="216.840.1.868780.5.6" code="CONC" displayName="Concern" /> < statusCode code="completed" /> <effectiveTime> <low value="74899593 " /> </effectiveTime> <entryRelationship typeCode="SUBJ"> < observation moodCode="EVN" classCode="OBS"> <templateId root= "08.09.840.1.758738.10..4.4" /> <id nullFlavor="UNK" /> < code codeSystem="216.840.1.613204.6.96" code="463130636" displayName="Diagnosis " /> <statusCode code="completed" /> <value codeSystem="" xsi: type="CD" code="E860" displayName="Dehydration" /> </observation> </ entryRelationship> </act> </entry> <entry typeCode="DRIV"> <act moodCode ="EVN" classCode="ACT"> <templateId root="216.840.1.012269.10...4.3" / > <id nullFlavor="UNK" /> <code codeSystem="08.09.840.1.635602.5.6" code="CONC" displayName="Concern" /> <statusCode code="completed" /> < effectiveTime> <low value="20160126" /> </effectiveTime> < entryRelationship typeCode="SUBJ"> <observation moodCode="EVN" classCode= "OBS"> <templateId root="08.09.840.1.129416.04.12.22.4.4" /> < id nullFlavor="UNK" /> <code codeSystem="840.1.779869.6.96" code= "808965643" displayName="Diagnosis" /> <statusCode code="completed" /> <value codeSystem="" xsi:type="CD" code="J44.9" displayName="Chronic obstructive pulmonary disease, unspecified" /> </observation> </ entryRelationship> </act> </entry> <entry typeCode="DRIV"> <act moodCode ="EVN" classCode="ACT"> <templateId root="08.09.840.1.430276.04.12.22.4.3" / > <id nullFlavor="UNK" /> <code codeSystem="08.09.840.1.063295.5.6" code="CONC" displayName="Concern" /> <statusCode code="completed" /> < effectiveTime> <low value="20160126" /> </effectiveTime> < entryRelationship typeCode="SUBJ"> <observation moodCode="EVN" classCode= "OBS"> <templateId root="08.09.840.1.921500.04.12.22.4.4" /> < id nullFlavor="UNK" /> <code codeSystem="08.09.840.1.156732.6.96" code= "976744538" displayName="Diagnosis" /> <statusCode code="completed" /> <value codeSystem="" xsi:type="CD" code="J449" displayName="Chronic obstructive pulmonary disease, unspecified" /> </observation> </ entryRelationship> </act> </entry> <entry typeCode="DRIV"> <act moodCode ="EVN" classCode="ACT"> <templateId root="216.840.1.290810.10.22.4.3" / > <id nullFlavor="UNK" /> <code codeSystem="216.840.1.770814.5.6" code="CONC" displayName="Concern" /> <statusCode code="completed" /> < effectiveTime> <low value="46755291" /> </effectiveTime> < entryRelationship typeCode="SUBJ"> <observation moodCode="EVN" classCode= "OBS"> <templateId root="216.840.1.383379.10.22.4.4" /> < id nullFlavor="UNK" /> <code codeSystem="216.840.1.113003.6.96" code= "758005317" displayName="Diagnosis" /> <statusCode code="completed" /> <value codeSystem="" xsi:type="CD" code="I10" displayName="Essential ( primary) hypertension" /> </observation> </entryRelationship> </ act> </entry> <entry typeCode="DRIV"> <act moodCode="EVN" classCode="ACT"> <templateId root="216.840.1.438187.10.22.4.3" /> <id nullFlavor= "UNK" /> <code codeSystem="216.840.1.523339.5.6" code="CONC" displayName= "Concern" /> <statusCode code="completed" /> <effectiveTime> < low value="06138072" /> </effectiveTime> <entryRelationship typeCode= "SUBJ"> <observation moodCode="EVN" classCode="OBS"> < templateId root="840.1.480056.10..4.4" /> <id nullFlavor="UNK " /> <code codeSystem="840.1.309290.6.96" code="913526777" displayName="Diagnosis" /> <statusCode code="completed" /> < value codeSystem="" xsi:type="CD" code="I20.9" displayName="Angina pectoris, unspecified" /> </observation> </entryRelationship> </act> </ entry> <entry typeCode="DRIV"> <act moodCode="EVN" classCode="ACT"> < templateId root="08.09.840.1.414400.10..4.3" /> <id nullFlavor="UNK" / > <code codeSystem="08.09.840.1.673355.5.6" code="CONC" displayName="Concern " /> <statusCode code="completed" /> <effectiveTime> <low value ="20160505" /> </effectiveTime> <entryRelationship typeCode="SUBJ"> <observation moodCode="EVN" classCode="OBS"> <templateId root= "08.09.840.1.793403.10.22.4.4" /> <id nullFlavor="UNK" /> < code codeSystem="08.09.840.1.530926.6.96" code="[id number]" displayName="Diagnosis " /> <statusCode code="completed" /> <value codeSystem="" xsi: type="CD" code="I209" displayName="Angina pectoris, unspecified" /> </ observation> </entryRelationship> </act> </entry> <entry typeCode= "DRIV"> <act moodCode="EVN" classCode="ACT"> <templateId root= "08.09.840.1.470124.10.20.22.4.3" /> <id nullFlavor="UNK" /> <code codeSystem="08.09.840.1.261826.5.6" code="CONC" displayName="Concern" /> < statusCode code="completed" /> <effectiveTime> <low value="[id number] " /> </effectiveTime> <entryRelationship typeCode="SUBJ"> < observation moodCode="EVN" classCode="OBS"> <templateId root= "08.09.840.1.459773.10..22.4.4" /> <id nullFlavor="UNK" /> < code codeSystem="2.840.1.128192.6.96" code="[id number]" displayName="Diagnosis " /> <statusCode code="completed" /> <value codeSystem="" xsi: type="CD" code="J44.9" displayName="Chronic obstructive pulmonary disease, unspecified" /> </observation> </entryRelationship> </act> </ entry> <entry typeCode="DRIV"> <act moodCode="EVN" classCode="ACT"> < templateId root="08.09.840.1.056377.10..22.4.3" /> <id nullFlavor="UNK" / > <code codeSystem="2.840.1.963100.5.6" code="CONC" displayName="Concern " /> <statusCode code="completed" /> <effectiveTime> <low value ="20160505" /> </effectiveTime> <entryRelationship typeCode="SUBJ"> <observation moodCode="EVN" classCode="OBS"> <templateId root= "08.09.840.1.661527.10..22.4.4" /> <id nullFlavor="UNK" /> < code codeSystem="840.1.944453.6.96" code="[id number]" displayName="Diagnosis " /> <statusCode code="completed" /> <value codeSystem="" xsi: type="CD" code="J449" displayName="Chronic obstructive pulmonary disease, unspecified" /> </observation> </entryRelationship> </act> </ entry> <entry typeCode="DRIV"> <act moodCode="EVN" classCode="ACT"> < templateId root="08.09.840.1.964077.10..22.4.3" /> <id nullFlavor="UNK" / > <code codeSystem="08.09.840.1.705926.5.6" code="CONC" displayName="Concern " /> <statusCode code="completed" /> <effectiveTime> <low value ="[id number]" /> </effectiveTime> <entryRelationship typeCode="SUBJ"> <observation moodCode="EVN" classCode="OBS"> <templateId root= "08.09.840.1.839711.10..22.4.4" /> <id nullFlavor="UNK" /> < code codeSystem="08.09.840.1.543124.6.96" code="592166893" displayName="Diagnosis " /> <statusCode code="completed" /> <value codeSystem="" xsi: type="CD" code="R07.9" displayName="Chest pain, unspecified" /> </ observation> </entryRelationship> </act> </entry> <entry typeCode= "DRIV"> <act moodCode="EVN" classCode="ACT"> <templateId root= "840.1.974196.10..22.4.3" /> <id nullFlavor="UNK" /> <code codeSystem="840.1.530286.5.6" code="CONC" displayName="Concern" /> < statusCode code="completed" /> <effectiveTime> <low value="20160505 " /> </effectiveTime> <entryRelationship typeCode="SUBJ"> < observation moodCode="EVN" classCode="OBS"> <templateId root= "840.1.667879.10..4.4" /> <id nullFlavor="UNK" /> < code codeSystem="840.1.666953.6.96" code="945640077" displayName="Diagnosis " /> <statusCode code="completed" /> <value codeSystem="" xsi: type="CD" code="R079" displayName="Chest pain, unspecified" /> </ observation> </entryRelationship> </act> </entry> <entry typeCode= "DRIV"> <act moodCode="EVN" classCode="ACT"> <templateId root= "08.09.840.1.537121.10...4.3" /> <id nullFlavor="UNK" /> <code codeSystem="08.09.840.1.462804.5.6" code="CONC" displayName="Concern" /> < statusCode code="completed" /> <effectiveTime> <low value="20160526 " /> </effectiveTime> <entryRelationship typeCode="SUBJ"> < observation moodCode="EVN" classCode="OBS"> <templateId root= "08.09.840.1.190650.10..22.4.4" /> <id nullFlavor="UNK" /> < code codeSystem="216.840.1.893744.6.96" code="432355697" displayName="Diagnosis " /> <statusCode code="completed" /> <value codeSystem="" xsi: type="CD" code="F41.9" displayName="Anxiety disorder, unspecified" /> </ observation> </entryRelationship> </act> </entry> <entry typeCode= "DRIV"> <act moodCode="EVN" classCode="ACT"> <templateId root= "216.840.1.842807.10..22.4.3" /> <id nullFlavor="UNK" /> <code codeSystem="216.840.1.024740.5.6" code="CONC" displayName="Concern" /> < statusCode code="completed" /> <effectiveTime> <low value="52236576 " /> </effectiveTime> <entryRelationship typeCode="SUBJ"> < observation moodCode="EVN" classCode="OBS"> <templateId root= "16.840.1.560493.10..4.4" /> <id nullFlavor="UNK" /> < code codeSystem="216.840.1.675753.6.96" code="478952892" displayName="Diagnosis " /> <statusCode code="completed" /> <value codeSystem="" xsi: type="CD" code="F419" displayName="Anxiety disorder, unspecified" /> </ observation> </entryRelationship> </act> </entry> <entry typeCode= "DRIV"> <act moodCode="EVN" classCode="ACT"> <templateId root= "216.840.1.082504.10..22.4.3" /> <id nullFlavor="UNK" /> <code codeSystem="08.09.840.1.902893.5.6" code="CONC" displayName="Concern" /> < statusCode code="completed" /> <effectiveTime> <low value="20160526 " /> </effectiveTime> <entryRelationship typeCode="SUBJ"> < observation moodCode="EVN" classCode="OBS"> <templateId root= "08.09.840.1.808341...4.4" /> <id nullFlavor="UNK" /> < code codeSystem="840.1.149664.6.96" code="236278854" displayName="Diagnosis " /> <statusCode code="completed" /> <value codeSystem="" xsi: type="CD" code="R07.89" displayName="Other chest pain" /> </observation> </entryRelationship> </act> </entry> <entry typeCode="DRIV"> <act moodCode="EVN" classCode="ACT"> <templateId root= "08.09.840.1.399831.04.12.22.4.3" /> <id nullFlavor="UNK" /> <code codeSystem="08.09.840.1.322526.5.6" code="CONC" displayName="Concern" /> < statusCode code="completed" /> <effectiveTime> <low value="20160526 " /> </effectiveTime> <entryRelationship typeCode="SUBJ"> < observation moodCode="EVN" classCode="OBS"> <templateId root= "08.09.840.1.198167.04.12.22.4.4" /> <id nullFlavor="UNK" /> < code codeSystem="08.09.840.1.529994.6.96" code="525131027" displayName="Diagnosis " /> <statusCode code="completed" /> <value codeSystem="" xsi: type="CD" code="R0789" displayName="Other chest pain" /> </observation> </entryRelationship> </act> </entry> <entry typeCode="DRIV"> <act moodCode="EVN" classCode="ACT"> <templateId root= "08.09.840.1.781349.10.22.4.3" /> <id nullFlavor="UNK" /> <code codeSystem="08.09.840.1.948960.5.6" code="CONC" displayName="Concern" /> < statusCode code="completed" /> <effectiveTime> <low value="18555224 " /> </effectiveTime> <entryRelationship typeCode="SUBJ"> < observation moodCode="EVN" classCode="OBS"> <templateId root= "08.09.840.1.175702.10.22.4.4" /> <id nullFlavor="UNK" /> < code codeSystem="08.09.840.1.784082.6.96" code="586279830" displayName="Diagnosis " /> <statusCode code="completed" /> <value codeSystem="" xsi: type="CD" code="R07.89" displayName="Other chest pain" /> </observation> </entryRelationship> </act> </entry> <entry typeCode="DRIV"> <act moodCode="EVN" classCode="ACT"> <templateId root= "08.09.840.1.001089.10.20.22.4.3" /> <id nullFlavor="UNK" /> <code codeSystem="2.840.1.968337.5.6" code="CONC" displayName="Concern" /> < statusCode code="completed" /> <effectiveTime> <low value="20160626 " /> </effectiveTime> <entryRelationship typeCode="SUBJ"> < observation moodCode="EVN" classCode="OBS"> <templateId root= "08.09.840.1.987134.10.22.4.4" /> <id nullFlavor="UNK" /> < code codeSystem="2.840.1.191228.6.96" code="665597747" displayName="Diagnosis " /> <statusCode code="completed" /> <value codeSystem="" xsi: type="CD" code="R07.89" displayName="Other chest pain" /> </observation> </entryRelationship> </act> </entry> <entry typeCode="DRIV"> <act moodCode="EVN" classCode="ACT"> <templateId root= "08.09.840.1.056959.10..4.3" /> <id nullFlavor="UNK" /> <code codeSystem="216.840.1.275307.5.6" code="CONC" displayName="Concern" /> < statusCode code="completed" /> <effectiveTime> <low value="20160626 " /> </effectiveTime> <entryRelationship typeCode="SUBJ"> < observation moodCode="EVN" classCode="OBS"> <templateId root= "08.09.840.1.308323.10.22.4.4" /> <id nullFlavor="UNK" /> < code codeSystem="216.840.1.286784.6.96" code="701998735" displayName="Diagnosis " /> <statusCode code="completed" /> <value codeSystem="" xsi: type="CD" code="Z51.89" displayName="Encounter for other specified aftercare" / > </observation> </entryRelationship> </act> </entry> <entry typeCode="DRIV"> <act moodCode="EVN" classCode="ACT"> <templateId root= "216.840.1.230932.10..4.3" /> <id nullFlavor="UNK" /> <code codeSystem="2.840.1.615223.5.6" code="CONC" displayName="Concern" /> < statusCode code="completed" /> <effectiveTime> <low value="20160706 " /> </effectiveTime> <entryRelationship typeCode="SUBJ"> < observation moodCode="EVN" classCode="OBS"> <templateId root= "16.840.1.718515.10..4.4" /> <id nullFlavor="UNK" /> < code codeSystem="216.840.1.244652.6.96" code="758005486" displayName="Diagnosis " /> <statusCode code="completed" /> <value codeSystem="" xsi: type="CD" code="J44.1" displayName="Chronic obstructive pulmonary disease with ( acute) exacerbation" /> </observation> </entryRelationship> </act > </entry> <entry typeCode="DRIV"> <act moodCode="EVN" classCode="ACT"> <templateId root="08.09.840.1.618384.10...4.3" /> <id nullFlavor="UNK " /> <code codeSystem="216.840.1.965228.5.6" code="CONC" displayName= "Concern" /> <statusCode code="completed" /> <effectiveTime> < low value="20160706" /> </effectiveTime> <entryRelationship typeCode= "SUBJ"> <observation moodCode="EVN" classCode="OBS"> < templateId root="08.09.840.1.201067.10.20.22.4.4" /> <id nullFlavor="UNK " /> <code codeSystem="08.09.840.1.354318.6.96" code="304389223" displayName="Diagnosis" /> <statusCode code="completed" /> < value codeSystem="" xsi:type="CD" code="J441" displayName="Chronic obstructive pulmonary disease with (acute) exacerbation" /> </observation> </ entryRelationship> </act> </entry> <entry typeCode="DRIV"> <act moodCode ="EVN" classCode="ACT"> <templateId root="08.09.840.1.676275.10.20.22.4.3" / > <id nullFlavor="UNK" /> <code codeSystem="2.840.1.369136.5.6" code="CONC" displayName="Concern" /> <statusCode code="completed" /> < effectiveTime> <low value="16714955" /> </effectiveTime> < entryRelationship typeCode="SUBJ"> <observation moodCode="EVN" classCode= "OBS"> <templateId root="16.840.1.601204.10.20.22.4.4" /> < id nullFlavor="UNK" /> <code codeSystem="216.840.1.008949.6.96" code= "144632204" displayName="Diagnosis" /> <statusCode code="completed" /> <value codeSystem="" xsi:type="CD" code="R05" displayName="Cough" /> </observation> </entryRelationship> </act> </entry> <entry typeCode="DRIV"> <act moodCode="EVN" classCode="ACT"> <templateId root= "08.09.840.1.048487.10..22.4.3" /> <id nullFlavor="UNK" /> <code codeSystem="840.1.149412.5.6" code="CONC" displayName="Concern" /> < statusCode code="completed" /> <effectiveTime> <low value="20160726 " /> </effectiveTime> <entryRelationship typeCode="SUBJ"> < observation moodCode="EVN" classCode="OBS"> <templateId root= "08.09.840.1.533650.10..4.4" /> <id nullFlavor="UNK" /> < code codeSystem="08.09.840.1.565015.6.96" code="588299311" displayName="Diagnosis " /> <statusCode code="completed" /> <value codeSystem="" xsi: type="CD" code="I10" displayName="Essential (primary) hypertension" /> </ observation> </entryRelationship> </act> </entry> <entry typeCode= "DRIV"> <act moodCode="EVN" classCode="ACT"> <templateId root= "08.09.840.1.590027.10...4.3" /> <id nullFlavor="UNK" /> <code codeSystem="2.840.1.582286.5.6" code="CONC" displayName="Concern" /> < statusCode code="completed" /> <effectiveTime> <low value="20160726 " /> </effectiveTime> <entryRelationship typeCode="SUBJ"> < observation moodCode="EVN" classCode="OBS"> <templateId root= "08.09.840.1.874041.10..22.4.4" /> <id nullFlavor="UNK" /> < code codeSystem="16.840.1.719618.6.96" code="059521717" displayName="Diagnosis " /> <statusCode code="completed" /> <value codeSystem="" xsi: type="CD" code="J40" displayName="Bronchitis, not specified as acute or chronic " /> </observation> </entryRelationship> </act> </entry> < entry typeCode="DRIV"> <act moodCode="EVN" classCode="ACT"> <templateId root="08.09.840.1.643683.10.20.22.4.3" /> <id nullFlavor="UNK" /> < code codeSystem="08.09.840.1.678418.5.6" code="CONC" displayName="Concern" /> <statusCode code="completed" /> <effectiveTime> <low value= "55628011" /> </effectiveTime> <entryRelationship typeCode="SUBJ"> <observation moodCode="EVN" classCode="OBS"> <templateId root= "08.09.840.1.263177.10..22.4.4" /> <id nullFlavor="UNK" /> < code codeSystem="216.840.1.403126.6.96" code="214618096" displayName="Diagnosis " /> <statusCode code="completed" /> <value codeSystem="" xsi: type="CD" code="J44.9" displayName="Chronic obstructive pulmonary disease, unspecified" /> </observation> </entryRelationship> </act> </ entry> <entry typeCode="DRIV"> <act moodCode="EVN" classCode="ACT"> < templateId root="08.09.840.1.506294.10.20.22.4.3" /> <id nullFlavor="UNK" / > <code codeSystem="08.09.840.1.394540.5.6" code="CONC" displayName="Concern " /> <statusCode code="completed" /> <effectiveTime> <low value ="20160726" /> </effectiveTime> <entryRelationship typeCode="SUBJ"> <observation moodCode="EVN" classCode="OBS"> <templateId root= "840.1.689020...4.4" /> <id nullFlavor="UNK" /> < code codeSystem="840.1.421000.6.96" code="876637387" displayName="Diagnosis " /> <statusCode code="completed" /> <value codeSystem="" xsi: type="CD" code="J449" displayName="Chronic obstructive pulmonary disease, unspecified" /> </observation> </entryRelationship> </act> </ entry> <entry typeCode="DRIV"> <act moodCode="EVN" classCode="ACT"> < templateId root="840.1.449593.10.4.3" /> <id nullFlavor="UNK" / > <code codeSystem="840.1.381761.5.6" code="CONC" displayName="Concern " /> <statusCode code="completed" /> <effectiveTime> <low value ="20160726" /> </effectiveTime> <entryRelationship typeCode="SUBJ"> <observation moodCode="EVN" classCode="OBS"> <templateId root= "840.1.126822.04.12.22.4.4" /> <id nullFlavor="UNK" /> < code codeSystem="840.1.722171.6.96" code="090439641" displayName="Diagnosis " /> <statusCode code="completed" /> <value codeSystem="" xsi: type="CD" code="K21.9" displayName="Gastro-esophageal reflux disease without esophagitis" /> </observation> </entryRelationship> </act> </ entry> <entry typeCode="DRIV"> <act moodCode="EVN" classCode="ACT"> < templateId root="216.840.1.423934.10..22.4.3" /> <id nullFlavor="UNK" / > <code codeSystem="216.840.1.231399.5.6" code="CONC" displayName="Concern " /> <statusCode code="completed" /> <effectiveTime> <low value ="83141551" /> </effectiveTime> <entryRelationship typeCode="SUBJ"> <observation moodCode="EVN" classCode="OBS"> <templateId root= "08.09.840.1.639431.10.22.4.4" /> <id nullFlavor="UNK" /> < code codeSystem="216.840.1.036087.6.96" code="596985294" displayName="Diagnosis " /> <statusCode code="completed" /> <value codeSystem="" xsi: type="CD" code="K219" displayName="Gastro-esophageal reflux disease without esophagitis" /> </observation> </entryRelationship> </act> </ entry> <entry typeCode="DRIV"> <act moodCode="EVN" classCode="ACT"> < templateId root="08.09.840.1.329739.10..22.4.3" /> <id nullFlavor="UNK" / > <code codeSystem="216.840.1.104328.5.6" code="CONC" displayName="Concern " /> <statusCode code="completed" /> <effectiveTime> <low value ="79845257" /> </effectiveTime> <entryRelationship typeCode="SUBJ"> <observation moodCode="EVN" classCode="OBS"> <templateId root= "08.09.840.1.492995.10..4.4" /> <id nullFlavor="UNK" /> < code codeSystem="08.09.840.1.179367.6.96" code="253832377" displayName="Diagnosis " /> <statusCode code="completed" /> <value codeSystem="" xsi: type="CD" code="R07.9" displayName="Chest pain, unspecified" /> </ observation> </entryRelationship> </act> </entry> <entry typeCode= "DRIV"> <act moodCode="EVN" classCode="ACT"> <templateId root= "08.09.840.1.595943.10..4.3" /> <id nullFlavor="UNK" /> <code codeSystem="2.840.1.001757.5.6" code="CONC" displayName="Concern" /> < statusCode code="completed" /> <effectiveTime> <low value="97679957 " /> </effectiveTime> <entryRelationship typeCode="SUBJ"> < observation moodCode="EVN" classCode="OBS"> <templateId root= "08.09.840.1.455241.10.22.4.4" /> <id nullFlavor="UNK" /> < code codeSystem="08.09.840.1.961765.6.96" code="287586769" displayName="Diagnosis " /> <statusCode code="completed" /> <value codeSystem="" xsi: type="CD" code="R079" displayName="Chest pain, unspecified" /> </ observation> </entryRelationship> </act> </entry> <entry typeCode= "DRIV"> <act moodCode="EVN" classCode="ACT"> <templateId root= "08.09.840.1.144675.10...4.3" /> <id nullFlavor="UNK" /> <code codeSystem="08.09.840.1.607297.5.6" code="CONC" displayName="Concern" /> < statusCode code="completed" /> <effectiveTime> <low value="20160820 " /> </effectiveTime> <entryRelationship typeCode="SUBJ"> < observation moodCode="EVN" classCode="OBS"> <templateId root= "08.09.840.1.017719.10..4.4" /> <id nullFlavor="UNK" /> < code codeSystem="2.840.1.271819.6.96" code="345067579" displayName="Diagnosis " /> <statusCode code="completed" /> <value codeSystem="" xsi: type="CD" code="R30.0" displayName="Dysuria" /> </observation> </ entryRelationship> </act> </entry> <entry typeCode="DRIV"> <act moodCode ="EVN" classCode="ACT"> <templateId root="08.09.840.1.966930.10..4.3" / > <id nullFlavor="UNK" /> <code codeSystem="2.840.1.101275.5.6" code="CONC" displayName="Concern" /> <statusCode code="completed" /> < effectiveTime> <low value="20160821" /> </effectiveTime> < entryRelationship typeCode="SUBJ"> <observation moodCode="EVN" classCode= "OBS"> <templateId root="08.09.840.1.307690.10.20.22.4.4" /> < id nullFlavor="UNK" /> <code codeSystem="840.1.803773.6.96" code= "640914061" displayName="Diagnosis" /> <statusCode code="completed" /> <value codeSystem="" xsi:type="CD" code="M54.6" displayName="Pain in thoracic spine" /> </observation> </entryRelationship> </act> </ entry> <entry typeCode="DRIV"> <act moodCode="EVN" classCode="ACT"> < templateId root="08.09.840.1.416115.10.20.22.4.3" /> <id nullFlavor="UNK" / > <code codeSystem="2.840.1.052193.5.6" code="CONC" displayName="Concern " /> <statusCode code="completed" /> <effectiveTime> <low value ="16695680" /> </effectiveTime> <entryRelationship typeCode="SUBJ"> <observation moodCode="EVN" classCode="OBS"> <templateId root= "08.09.840.1.714863.10.20.22.4.4" /> <id nullFlavor="UNK" /> < code codeSystem="840.1.396581.6.96" code="015497017" displayName="Diagnosis " /> <statusCode code="completed" /> <value codeSystem="" xsi: type="CD" code="Z51.89" displayName="Encounter for other specified aftercare" / > </observation> </entryRelationship> </act> </entry> <entry typeCode="DRIV"> <act moodCode="EVN" classCode="ACT"> <templateId root= "08.09.840.1.511186.10..22.4.3" /> <id nullFlavor="UNK" /> <code codeSystem="840.1.425612.5.6" code="CONC" displayName="Concern" /> < statusCode code="completed" /> <effectiveTime> <low value="20160824 " /> </effectiveTime> <entryRelationship typeCode="SUBJ"> < observation moodCode="EVN" classCode="OBS"> <templateId root= "840.1.890379.10..4.4" /> <id nullFlavor="UNK" /> < code codeSystem="08.09.840.1.731708.6.96" code="975660051" displayName="Diagnosis " /> <statusCode code="completed" /> <value codeSystem="" xsi: type="CD" code="I10" displayName="Essential (primary) hypertension" /> </ observation> </entryRelationship> </act> </entry> <entry typeCode= "DRIV"> <act moodCode="EVN" classCode="ACT"> <templateId root= "08.09.840.1.468843.10..22.4.3" /> <id nullFlavor="UNK" /> <code codeSystem="08.09.840.1.040054.5.6" code="CONC" displayName="Concern" /> < statusCode code="completed" /> <effectiveTime> <low value="20160824 " /> </effectiveTime> <entryRelationship typeCode="SUBJ"> < observation moodCode="EVN" classCode="OBS"> <templateId root= "08.09.840.1.659495.10..22.4.4" /> <id nullFlavor="UNK" /> < code codeSystem="216.840.1.718194.6.96" code="418111086" displayName="Diagnosis " /> <statusCode code="completed" /> <value codeSystem="" xsi: type="CD" code="R07.89" displayName="Other chest pain" /> </observation> </entryRelationship> </act> </entry> <entry typeCode="DRIV"> <act moodCode="EVN" classCode="ACT"> <templateId root= "08.09.840.1.926193.10.20.22.4.3" /> <id nullFlavor="UNK" /> <code codeSystem="216.840.1.034818.5.6" code="CONC" displayName="Concern" /> < statusCode code="completed" /> <effectiveTime> <low value="44754837 " /> </effectiveTime> <entryRelationship typeCode="SUBJ"> < observation moodCode="EVN" classCode="OBS"> <templateId root= "08.09.840.1.539403.10..22.4.4" /> <id nullFlavor="UNK" /> < code codeSystem="216.840.1.323535.6.96" code="103525400" displayName="Diagnosis " /> <statusCode code="completed" /> <value codeSystem="" xsi: type="CD" code="R52" displayName="Pain, unspecified" /> </observation> </entryRelationship> </act> </entry> <entry typeCode="DRIV"> <act moodCode="EVN" classCode="ACT"> <templateId root= "08.09.840.1.045231.10.20.22.4.3" /> <id nullFlavor="UNK" /> <code codeSystem="840.1.101570.5.6" code="CONC" displayName="Concern" /> < statusCode code="completed" /> <effectiveTime> <low value="20160826 " /> </effectiveTime> <entryRelationship typeCode="SUBJ"> < observation moodCode="EVN" classCode="OBS"> <templateId root= "840.1.832203.10..4.4" /> <id nullFlavor="UNK" /> < code codeSystem="840.1.530049.6.96" code="796741425" displayName="Diagnosis " /> <statusCode code="completed" /> <value codeSystem="" xsi: type="CD" code="E86.0" displayName="Dehydration" /> </observation> < /entryRelationship> </act> </entry> <entry typeCode="DRIV"> <act moodCode="EVN" classCode="ACT"> <templateId root= "840.1.844306.10..4.3" /> <id nullFlavor="UNK" /> <code codeSystem="840.1.722888.5.6" code="CONC" displayName="Concern" /> < statusCode code="completed" /> <effectiveTime> <low value="20160826 " /> </effectiveTime> <entryRelationship typeCode="SUBJ"> < observation moodCode="EVN" classCode="OBS"> <templateId root= "840.1.705637.10..4.4" /> <id nullFlavor="UNK" /> < code codeSystem="840.1.746663.6.96" code="135446624" displayName="Diagnosis " /> <statusCode code="completed" /> <value codeSystem="" xsi: type="CD" code="N39.0" displayName="Urinary tract infection, site not specified " /> </observation> </entryRelationship> </act> </entry> < entry typeCode="DRIV"> <act moodCode="EVN" classCode="ACT"> <templateId root="216.840.1.056448.10..22.4.3" /> <id nullFlavor="UNK" /> < code codeSystem="216.840.1.558686.5.6" code="CONC" displayName="Concern" /> <statusCode code="completed" /> <effectiveTime> <low value= "20160826" /> </effectiveTime> <entryRelationship typeCode="SUBJ"> <observation moodCode="EVN" classCode="OBS"> <templateId root= "08.09.840.1.961669.10.22.4.4" /> <id nullFlavor="UNK" /> < code codeSystem="216.840.1.964674.6.96" code="895849845" displayName="Diagnosis " /> <statusCode code="completed" /> <value codeSystem="" xsi: type="CD" code="R11.0" displayName="Nausea" /> </observation> </ entryRelationship> </act> </entry> <entry typeCode="DRIV"> <act moodCode ="EVN" classCode="ACT"> <templateId root="16.840.1.524809.10..22.4.3" / > <id nullFlavor="UNK" /> <code codeSystem="216.840.1.231990.5.6" code="CONC" displayName="Concern" /> <statusCode code="completed" /> < effectiveTime> <low value="20160918" /> </effectiveTime> < entryRelationship typeCode="SUBJ"> <observation moodCode="EVN" classCode= "OBS"> <templateId root="08.09.840.1.419304.10..22.4.4" /> < id nullFlavor="UNK" /> <code codeSystem="840.1.539378.6.96" code= "965961905" displayName="Diagnosis" /> <statusCode code="completed" /> <value codeSystem="" xsi:type="CD" code="M54.6" displayName="Pain in thoracic spine" /> </observation> </entryRelationship> </act> </ entry> <entry typeCode="DRIV"> <act moodCode="EVN" classCode="ACT"> < templateId root="08.09.840.1.213697.10..4.3" /> <id nullFlavor="UNK" / > <code codeSystem="08.09.840.1.899944.5.6" code="CONC" displayName="Concern " /> <statusCode code="completed" /> <effectiveTime> <low value ="72424655" /> </effectiveTime> <entryRelationship typeCode="SUBJ"> <observation moodCode="EVN" classCode="OBS"> <templateId root= "08.09.840.1.915417.10..4.4" /> <id nullFlavor="UNK" /> < code codeSystem="216.840.1.128028.6.96" code="573955239" displayName="Diagnosis " /> <statusCode code="completed" /> <value codeSystem="" xsi: type="CD" code="Z51.89" displayName="Encounter for other specified aftercare" / > </observation> </entryRelationship> </act> </entry> <entry typeCode="DRIV"> <act moodCode="EVN" classCode="ACT"> <templateId root= "840.1.381089.10..4.3" /> <id nullFlavor="UNK" /> <code codeSystem="840.1.710183.5.6" code="CONC" displayName="Concern" /> < statusCode code="completed" /> <effectiveTime> <low value="09654830 " /> </effectiveTime> <entryRelationship typeCode="SUBJ"> < observation moodCode="EVN" classCode="OBS"> <templateId root= "840.1.174447.04.12.22.4.4" /> <id nullFlavor="UNK" /> < code codeSystem="840.1.420006.6.96" code="176421089" displayName="Diagnosis " /> <statusCode code="completed" /> <value codeSystem="" xsi: type="CD" code="Z12.31" displayName="Encounter for screening mammogram for malignant neoplasm of breast" /> </observation> </entryRelationship > </act> </entry> <entry typeCode="DRIV"> <act moodCode="EVN" classCode= "ACT"> <templateId root="840.1.827153.10.4.3" /> <id nullFlavor="UNK" /> <code codeSystem="2.840.1.982642.5.6" code="CONC" displayName="Concern" /> <statusCode code="completed" /> < effectiveTime> <low value="[id number]" /> </effectiveTime> < entryRelationship typeCode="SUBJ"> <observation moodCode="EVN" classCode= "OBS"> <templateId root="840.1.429764.10..22.4.4" /> < id nullFlavor="UNK" /> <code codeSystem="08.09.840.1.610290.6.96" code= "[id number]" displayName="Diagnosis" /> <statusCode code="completed" /> <value codeSystem="" xsi:type="CD" code="R10.9" displayName= "Unspecified abdominal pain" /> </observation> </entryRelationship> </act> </entry> <entry typeCode="DRIV"> <act moodCode="EVN" classCode= "ACT"> <templateId root="08.09.840.1.126307.10..22.4.3" /> <id nullFlavor="UNK" /> <code codeSystem="216.840.1.138797.5.6" code="CONC" displayName="Concern" /> <statusCode code="completed" /> < effectiveTime> <low value="63328137" /> </effectiveTime> < entryRelationship typeCode="SUBJ"> <observation moodCode="EVN" classCode= "OBS"> <templateId root="08.09.840.1.162426.10.20.22.4.4" /> < id nullFlavor="UNK" /> <code codeSystem="216.840.1.593523.6.96" code= "373988649" displayName="Diagnosis" /> <statusCode code="completed" /> <value codeSystem="" xsi:type="CD" code="R30.9" displayName="Painful micturition, unspecified" /> </observation> </entryRelationship> </act> </entry> <entry typeCode="DRIV"> <act moodCode="EVN" classCode="ACT "> <templateId root="08.09.840.1.058616.10...4.3" /> <id nullFlavor ="UNK" /> <code codeSystem="840.1.843611.5.6" code="CONC" displayName= "Concern" /> <statusCode code="completed" /> <effectiveTime> < low value="20161115" /> </effectiveTime> <entryRelationship typeCode= "SUBJ"> <observation moodCode="EVN" classCode="OBS"> < templateId root="840.1.318227.10..4.4" /> <id nullFlavor="UNK " /> <code codeSystem="840.1.520702.6.96" code="677871185" displayName="Diagnosis" /> <statusCode code="completed" /> < value codeSystem="" xsi:type="CD" code="M79.662" displayName="Pain in left lower leg" /> </observation> </entryRelationship> </act> </entry > <entry typeCode="DRIV"> <act moodCode="EVN" classCode="ACT"> < templateId root="840.1.027627.10..4.3" /> <id nullFlavor="UNK" / > <code codeSystem="08.09.840.1.838064.5.6" code="CONC" displayName="Concern " /> <statusCode code="completed" /> <effectiveTime> <low value ="20161115" /> </effectiveTime> <entryRelationship typeCode="SUBJ"> <observation moodCode="EVN" classCode="OBS"> <templateId root= "840.1.890016.10..4.4" /> <id nullFlavor="UNK" /> < code codeSystem="08.09.830.1.376385.6.96" code="458784622" displayName="Diagnosis " /> <statusCode code="completed" /> <value codeSystem="" xsi: type="CD" code="R30.0" displayName="Dysuria" /> </observation> </ entryRelationship> </act> </entry> <entry typeCode="DRIV"> <act moodCode ="EVN" classCode="ACT"> <templateId root="216.840.1.111980.10..22.4.3" / > <id nullFlavor="UNK" /> <code codeSystem="216.840.1.560626.5.6" code="CONC" displayName="Concern" /> <statusCode code="completed" /> < effectiveTime> <low value="58104514" /> </effectiveTime> < entryRelationship typeCode="SUBJ"> <observation moodCode="EVN" classCode= "OBS"> <templateId root="08.09.840.1.040204.10..22.4.4" /> < id nullFlavor="UNK" /> <code codeSystem="216.840.1.640820.6.96" code= "787492277" displayName="Diagnosis" /> <statusCode code="completed" /> <value codeSystem="" xsi:type="CD" code="D69.6" displayName= "Thrombocytopenia, unspecified" /> </observation> </ entryRelationship> </act> </entry> <entry typeCode="DRIV"> <act moodCode ="EVN" classCode="ACT"> <templateId root="16.840.1.538353.10.20.22.4.3" / > <id nullFlavor="UNK" /> <code codeSystem="216.840.1.965386.5.6" code="CONC" displayName="Concern" /> <statusCode code="completed" /> < effectiveTime> <low value="20161230" /> </effectiveTime> < entryRelationship typeCode="SUBJ"> <observation moodCode="EVN" classCode= "OBS"> <templateId root="08.09.840.1.838364.10..4.4" /> < id nullFlavor="UNK" /> <code codeSystem="840.1.504924.6.96" code= "602072576" displayName="Diagnosis" /> <statusCode code="completed" /> <value codeSystem="" xsi:type="CD" code="E86.0" displayName= "Dehydration" /> </observation> </entryRelationship> </act> </ entry> <entry typeCode="DRIV"> <act moodCode="EVN" classCode="ACT"> < templateId root="840.1.808071.10..4.3" /> <id nullFlavor="UNK" / > <code codeSystem="840.1.590278.5.6" code="CONC" displayName="Concern " /> <statusCode code="completed" /> <effectiveTime> <low value ="20161230" /> </effectiveTime> <entryRelationship typeCode="SUBJ"> <observation moodCode="EVN" classCode="OBS"> <templateId root= "08.09.840.1.960553.10..4.4" /> <id nullFlavor="UNK" /> < code codeSystem="08.09.840.1.298897.6.96" code="453155413" displayName="Diagnosis " /> <statusCode code="completed" /> <value codeSystem="" xsi: type="CD" code="F32.9" displayName="Major depressive disorder, single episode, unspecified" /> </observation> </entryRelationship> </act> </ entry> <entry typeCode="DRIV"> <act moodCode="EVN" classCode="ACT"> < templateId root="08.09.840.1.010750.10..22.4.3" /> <id nullFlavor="UNK" / > <code codeSystem="08.09.840.1.939534.5.6" code="CONC" displayName="Concern " /> <statusCode code="completed" /> <effectiveTime> <low value ="20161230" /> </effectiveTime> <entryRelationship typeCode="SUBJ"> <observation moodCode="EVN" classCode="OBS"> <templateId root= "08.09.840.1.618802.10..4.4" /> <id nullFlavor="UNK" /> < code codeSystem="08.09.840.1.295113.6.96" code="803344429" displayName="Diagnosis " /> <statusCode code="completed" /> <value codeSystem="" xsi: type="CD" code="F41.9" displayName="Anxiety disorder, unspecified" /> </ observation> </entryRelationship> </act> </entry> <entry typeCode= "DRIV"> <act moodCode="EVN" classCode="ACT"> <templateId root= "08.09.840.1.293668.10..4.3" /> <id nullFlavor="UNK" /> <code codeSystem="08.09.840.1.305335.5.6" code="CONC" displayName="Concern" /> < statusCode code="completed" /> <effectiveTime> <low value="20161230 " /> </effectiveTime> <entryRelationship typeCode="SUBJ"> < observation moodCode="EVN" classCode="OBS"> <templateId root= "08.09.840.1.078282.10..22.4.4" /> <id nullFlavor="UNK" /> < code codeSystem="840.1.444757.6.96" code="576707408" displayName="Diagnosis " /> <statusCode code="completed" /> <value codeSystem="" xsi: type="CD" code="F79" displayName="Unspecified intellectual disabilities" /> </observation> </entryRelationship> </act> </entry> <entry typeCode="DRIV"> <act moodCode="EVN" classCode="ACT"> <templateId root= "08.09.840.1.064334.10..4.3" /> <id nullFlavor="UNK" /> <code codeSystem="08.09.840.1.682610.5.6" code="CONC" displayName="Concern" /> < statusCode code="completed" /> <effectiveTime> <low value="75977539 " /> </effectiveTime> <entryRelationship typeCode="SUBJ"> < observation moodCode="EVN" classCode="OBS"> <templateId root= "08.09.840.1.520268.10..4.4" /> <id nullFlavor="UNK" /> < code codeSystem="08.09.840.1.789783.6.96" code="821136416" displayName="Diagnosis " /> <statusCode code="completed" /> <value codeSystem="" xsi: type="CD" code="I10" displayName="Essential (primary) hypertension" /> </ observation> </entryRelationship> </act> </entry> <entry typeCode= "DRIV"> <act moodCode="EVN" classCode="ACT"> <templateId root= "08.09.840.1.438567.10..4.3" /> <id nullFlavor="UNK" /> <code codeSystem="08.09.840.1.455283.5.6" code="CONC" displayName="Concern" /> < statusCode code="completed" /> <effectiveTime> <low value="20161230 " /> </effectiveTime> <entryRelationship typeCode="SUBJ"> < observation moodCode="EVN" classCode="OBS"> <templateId root= "08.09.840.1.652804.04.12.22.4.4" /> <id nullFlavor="UNK" /> < code codeSystem="08.09.840.1.152219.6.96" code="739510009" displayName="Diagnosis " /> <statusCode code="completed" /> <value codeSystem="" xsi: type="CD" code="J18.9" displayName="Pneumonia, unspecified organism" /> < /observation> </entryRelationship> </act> </entry> <entry typeCode= "DRIV"> <act moodCode="EVN" classCode="ACT"> <templateId root= "08.09.840.1.233026.10..4.3" /> <id nullFlavor="UNK" /> <code codeSystem="08.09.840.1.037535.5.6" code="CONC" displayName="Concern" /> < statusCode code="completed" /> <effectiveTime> <low value="60633844 " /> </effectiveTime> <entryRelationship typeCode="SUBJ"> < observation moodCode="EVN" classCode="OBS"> <templateId root= "08.09.840.1.859529.10..22.4.4" /> <id nullFlavor="UNK" /> < code codeSystem="216.840.1.607710.6.96" code="938500935" displayName="Diagnosis " /> <statusCode code="completed" /> <value codeSystem="" xsi: type="CD" code="J44.0" displayName="Chronic obstructive pulmonary disease with acute lower respiratory infection" /> </observation> </ entryRelationship> </act> </entry> <entry typeCode="DRIV"> <act moodCode ="EVN" classCode="ACT"> <templateId root="2.16.840.1.094267.10...4.3" / > <id nullFlavor="UNK" /> <code codeSystem="2.16.840.1.733403.5.6" code="CONC" displayName="Concern" /> <statusCode code="completed" /> < effectiveTime> <low value="37678975" /> </effectiveTime> < entryRelationship typeCode="SUBJ"> <observation moodCode="EVN" classCode= "OBS"> <templateId root="216.840.1.776088.10..22.4.4" /> < id nullFlavor="UNK" /> <code codeSystem="216.840.1.826729.6.96" code= "039892196" displayName="Diagnosis" /> <statusCode code="completed" /> <value codeSystem="" xsi:type="CD" code="J44.1" displayName="Chronic obstructive pulmonary disease with (acute) exacerbation" /> </observation > </entryRelationship> </act> </entry> <entry typeCode="DRIV"> < act moodCode="EVN" classCode="ACT"> <templateId root= "08.09.840.1.434805.10..22.4.3" /> <id nullFlavor="UNK" /> <code codeSystem="840.1.547682.5.6" code="CONC" displayName="Concern" /> < statusCode code="completed" /> <effectiveTime> <low value="20161230 " /> </effectiveTime> <entryRelationship typeCode="SUBJ"> < observation moodCode="EVN" classCode="OBS"> <templateId root= "840.1.636008.10..4.4" /> <id nullFlavor="UNK" /> < code codeSystem="840.1.930128.6.96" code="411581791" displayName="Diagnosis " /> <statusCode code="completed" /> <value codeSystem="" xsi: type="CD" code="M15.0" displayName="Primary generalized (osteo)arthritis" /> </observation> </entryRelationship> </act> </entry> <entry typeCode="DRIV"> <act moodCode="EVN" classCode="ACT"> <templateId root= "08.09.840.1.039206.10..4.3" /> <id nullFlavor="UNK" /> <code codeSystem="08.09.840.1.472317.5.6" code="CONC" displayName="Concern" /> < statusCode code="completed" /> <effectiveTime> <low value="20161230 " /> </effectiveTime> <entryRelationship typeCode="SUBJ"> < observation moodCode="EVN" classCode="OBS"> <templateId root= "08.09.840.1.457440.10..4.4" /> <id nullFlavor="UNK" /> < code codeSystem="840.1.656793.6.96" code="242285295" displayName="Diagnosis " /> <statusCode code="completed" /> <value codeSystem="" xsi: type="CD" code="N39.3" displayName="Stress incontinence (female) (male)" /> </observation> </entryRelationship> </act> </entry> <entry typeCode="DRIV"> <act moodCode="EVN" classCode="ACT"> <templateId root= "16.840.1.445351.10.20.22.4.3" /> <id nullFlavor="UNK" /> <code codeSystem="216.840.1.073467.5.6" code="CONC" displayName="Concern" /> < statusCode code="completed" /> <effectiveTime> <low value="78122165 " /> </effectiveTime> <entryRelationship typeCode="SUBJ"> < observation moodCode="EVN" classCode="OBS"> <templateId root= "16.840.1.153510.10..22.4.4" /> <id nullFlavor="UNK" /> < code codeSystem="216.840.1.152355.6.96" code="900824435" displayName="Diagnosis " /> <statusCode code="completed" /> <value codeSystem="" xsi: type="CD" code="R09.02" displayName="Hypoxemia" /> </observation> </ entryRelationship> </act> </entry> <entry typeCode="DRIV"> <act moodCode ="EVN" classCode="ACT"> <templateId root="16.840.1.596752.10.20.22.4.3" / > <id nullFlavor="UNK" /> <code codeSystem="216840.1.547405.5.6" code="CONC" displayName="Concern" /> <statusCode code="completed" /> < effectiveTime> <low value="20161230" /> </effectiveTime> < entryRelationship typeCode="SUBJ"> <observation moodCode="EVN" classCode= "OBS"> <templateId root="08.09.840.1.859818.10..4.4" /> < id nullFlavor="UNK" /> <code codeSystem="840.1.368244.6.96" code= "307052128" displayName="Diagnosis" /> <statusCode code="completed" /> <value codeSystem="" xsi:type="CD" code="Z79.1" 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 (NSAID)" /> </ observation> </entryRelationship> </act> </entry> <entry typeCode= "DRIV"> <act moodCode="EVN" classCode="ACT"> <templateId root= "08.09.840.1.554735.04.12.22.4.3" /> <id nullFlavor="UNK" /> <code codeSystem="08.09.840.1.192450.5.6" code="CONC" displayName="Concern" /> < statusCode code="completed" /> <effectiveTime> <low value="20161230 " /> </effectiveTime> <entryRelationship typeCode="SUBJ"> < observation moodCode="EVN" classCode="OBS"> <templateId root= "08.09.840.1.098871.04.12.22.4.4" /> <id nullFlavor="UNK" /> < code codeSystem="840.1.578806.6.96" code="409428796" displayName="Diagnosis " /> <statusCode code="completed" /> <value codeSystem="" xsi: type="CD" code="Z79.52" 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" /> </observation> </entryRelationship> </act> </entry > <entry typeCode="DRIV"> <act moodCode="EVN" classCode="ACT"> < templateId root="216.840.1.223078.10.20.22.4.3" /> <id nullFlavor="UNK" / > <code codeSystem="2.840.1.789367.5.6" code="CONC" displayName="Concern " /> <statusCode code="completed" /> <effectiveTime> <low value ="68344346" /> </effectiveTime> <entryRelationship typeCode="SUBJ"> <observation moodCode="EVN" classCode="OBS"> <templateId root= "08.09.840.1.695509.10.22.4.4" /> <id nullFlavor="UNK" /> < code codeSystem="2.840.1.247843.6.96" code="204506412" displayName="Diagnosis " /> <statusCode code="completed" /> <value codeSystem="" xsi: type="CD" code="Z79.82" 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" /> </observation> </entryRelationship> </act> </entry> <entry typeCode="DRIV"> <act moodCode="EVN" classCode="ACT"> <templateId root= "08.09.840.1.456207.10.20.22.4.3" /> <id nullFlavor="UNK" /> <code codeSystem="216.840.1.059588.5.6" code="CONC" displayName="Concern" /> < statusCode code="completed" /> <effectiveTime> <low value="20161230 " /> </effectiveTime> <entryRelationship typeCode="SUBJ"> < observation moodCode="EVN" classCode="OBS"> <templateId root= "08.09.840.1.727078.10.22.4.4" /> <id nullFlavor="UNK" /> < code codeSystem="2.840.1.813767.6.96" code="884114260" displayName="Diagnosis " /> <statusCode code="completed" /> <value codeSystem="" xsi: type="CD" code="Z79.83" 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 " /> </observation> </entryRelationship> </act> </entry> < entry typeCode="DRIV"> <act moodCode="EVN" classCode="ACT"> <templateId root="16.840.1.487960.10..4.3" /> <id nullFlavor="UNK" /> < code codeSystem="2.840.1.595759.5.6" code="CONC" displayName="Concern" /> <statusCode code="completed" /> <effectiveTime> <low value= "20161230" /> </effectiveTime> <entryRelationship typeCode="SUBJ"> <observation moodCode="EVN" classCode="OBS"> <templateId root= "08.09.840.1.129112.10.22.4.4" /> <id nullFlavor="UNK" /> < code codeSystem="216.840.1.127396.6.96" code="613241589" displayName="Diagnosis " /> <statusCode code="completed" /> <value codeSystem="" xsi: type="CD" code="Z79.899" 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" / > </observation> </entryRelationship> </act> </entry> <entry typeCode="DRIV"> <act moodCode="EVN" classCode="ACT"> <templateId root= "16.840.1.318694.10.20.22.4.3" /> <id nullFlavor="UNK" /> <code codeSystem="2.840.1.026879.5.6" code="CONC" displayName="Concern" /> < statusCode code="completed" /> <effectiveTime> <low value="20161230 " /> </effectiveTime> <entryRelationship typeCode="SUBJ"> < observation moodCode="EVN" classCode="OBS"> <templateId root= "16.840.1.190271.10...4.4" /> <id nullFlavor="UNK" /> < code codeSystem="216.840.1.823732.6.96" code="392766162" displayName="Diagnosis " /> <statusCode code="completed" /> <value codeSystem="" xsi: type="CD" code="Z87.442" displayName="Personal history of urinary calculi" /> </observation> </entryRelationship> </act> </entry> <entry typeCode="DRIV"> <act moodCode="EVN" classCode="ACT"> <templateId root= "08.09.840.1.774830.10..22.4.3" /> <id nullFlavor="UNK" /> <code codeSystem="216.840.1.258638.5.6" code="CONC" displayName="Concern" /> < statusCode code="completed" /> <effectiveTime> <low value="20161230 " /> </effectiveTime> <entryRelationship typeCode="SUBJ"> < observation moodCode="EVN" classCode="OBS"> <templateId root= "08.09.840.1.345767.10.20.22.4.4" /> <id nullFlavor="UNK" /> < code codeSystem="840.1.463082.6.96" code="640714897" displayName="Diagnosis " /> <statusCode code="completed" /> <value codeSystem="" xsi: type="CD" code="Z88.0" displayName="Allergy status to penicillin" /> </ observation> </entryRelationship> </act> </entry> <entry typeCode= "DRIV"> <act moodCode="EVN" classCode="ACT"> <templateId root= "08.09.840.1.401309.10.20.22.4.3" /> <id nullFlavor="UNK" /> <code codeSystem="08.09.840.1.524234.5.6" code="CONC" displayName="Concern" /> < statusCode code="completed" /> <effectiveTime> <low value="83576153 " /> </effectiveTime> <entryRelationship typeCode="SUBJ"> < observation moodCode="EVN" classCode="OBS"> <templateId root= "08.09.840.1.273917.10.20.22.4.4" /> <id nullFlavor="UNK" /> < code codeSystem="08.09.840.1.685854.6.96" code="116504348" displayName="Diagnosis " /> <statusCode code="completed" /> <value codeSystem="" xsi: type="CD" code="Z88.1" displayName="Allergy status to other antibiotic agents status" /> </observation> </entryRelationship> </act> </entry> <entry typeCode="DRIV"> <act moodCode="EVN" classCode="ACT"> < templateId root="08.09.840.1.960100.10..4.3" /> <id nullFlavor="UNK" / > <code codeSystem="08.09.840.1.252995.5.6" code="CONC" displayName="Concern " /> <statusCode code="completed" /> <effectiveTime> <low value ="20170215" /> </effectiveTime> <entryRelationship typeCode="SUBJ"> <observation moodCode="EVN" classCode="OBS"> <templateId root= "08.09.840.1.364102.04.12.22.4.4" /> <id nullFlavor="UNK" /> < code codeSystem="08.09.840.1.051183.6.96" code="263448605" displayName="Diagnosis " /> <statusCode code="completed" /> <value codeSystem="" xsi: type="CD" code="S22.31XA" displayName="Fracture of one rib, right side, initial encounter for closed fracture" /> </observation> </entryRelationship > </act> </entry> <entry typeCode="DRIV"> <act moodCode="EVN" classCode= "ACT"> <templateId root="08.09.840.1.807486.10..4.3" /> <id nullFlavor="UNK" /> <code codeSystem="840.1.890267.5.6" code="CONC" displayName="Concern" /> <statusCode code="completed" /> < effectiveTime> <low value="20170215" /> </effectiveTime> < entryRelationship typeCode="SUBJ"> <observation moodCode="EVN" classCode= "OBS"> <templateId root="08.09.840.1.617232.10.20.22.4.4" /> < id nullFlavor="UNK" /> <code codeSystem="216.840.1.280655.6.96" code= "321812118" displayName="Diagnosis" /> <statusCode code="completed" /> <value codeSystem="" xsi:type="CD" code="S59.801A" displayName="Other specified injuries of right elbow, initial encounter" /> </observation> </entryRelationship> </act> </entry> <entry typeCode="DRIV"> <act moodCode="EVN" classCode="ACT"> <templateId root= "2.16.840.1.767230.10..22.4.3" /> <id nullFlavor="UNK" /> <code codeSystem="2.16.840.1.192670.5.6" code="CONC" displayName="Concern" /> < statusCode code="completed" /> <effectiveTime> <low value="98279668 " /> </effectiveTime> <entryRelationship typeCode="SUBJ"> < observation moodCode="EVN" classCode="OBS"> <templateId root= "2.16.840.1.373303.10..22.4.4" /> <id nullFlavor="UNK" /> < code codeSystem="2.16.840.1.432098.6.96" code="145111707" displayName="Diagnosis " /> <statusCode code="completed" /> <value codeSystem="" xsi: type="CD" code="W01.198A" displayName="Fall on same level from slipping, tripping and stumbling with subsequent striking against other object, initial encounter" /> </observation> </entryRelationship> </act> </entry > <entry typeCode="DRIV"> <act moodCode="EVN" classCode="ACT"> < templateId root="08.09.840.1.838356.10..22.4.3" /> <id nullFlavor="UNK" / > <code codeSystem="840.1.955361.5.6" code="CONC" displayName="Concern " /> <statusCode code="completed" /> <effectiveTime> <low value ="20170215" /> </effectiveTime> <entryRelationship typeCode="SUBJ"> <observation moodCode="EVN" classCode="OBS"> <templateId root= "840.1.358878.10..4.4" /> <id nullFlavor="UNK" /> < code codeSystem="08.09.840.1.892046.6.96" code="253835607" displayName="Diagnosis " /> <statusCode code="completed" /> <value codeSystem="" xsi: type="CD" code="Y92.018" displayName="Other place in single-family (private) house as the place of occurrence of the external cause" /> </observation > </entryRelationship> </act> </entry> <entry typeCode="DRIV"> < act moodCode="EVN" classCode="ACT"> <templateId root= "08.09.840.1.316789.10...4.3" /> <id nullFlavor="UNK" /> <code codeSystem="08.09.840.1.534505.5.6" code="CONC" displayName="Concern" /> < statusCode code="completed" /> <effectiveTime> <low value="07315869 " /> </effectiveTime> <entryRelationship typeCode="SUBJ"> < observation moodCode="EVN" classCode="OBS"> <templateId root= "08.09.840.1.287667.04.12.22.4.4" /> <id nullFlavor="UNK" /> < code codeSystem="216.840.1.770153.6.96" code="429664535" displayName="Diagnosis " /> <statusCode code="completed" /> <value codeSystem="" xsi: type="CD" code="R30.0" displayName="Dysuria" /> </observation> </ entryRelationship> </act> </entry> <entry typeCode="DRIV"> <act moodCode ="EVN" classCode="ACT"> <templateId root="216.840.1.642599.04.12.22.4.3" / > <id nullFlavor="UNK" /> <code codeSystem="2.16.840.1.254895.5.6" code="CONC" displayName="Concern" /> <statusCode code="completed" /> < effectiveTime> <low value="90608037" /> </effectiveTime> < entryRelationship typeCode="SUBJ"> <observation moodCode="EVN" classCode= "OBS"> <templateId root="16.840.1.387390.04.12.22.4.4" /> < id nullFlavor="UNK" /> <code codeSystem="2.16.840.1.181296.6.96" code= "749883514" displayName="Diagnosis" /> <statusCode code="completed" /> <value codeSystem="" xsi:type="CD" code="I10" displayName="Essential ( primary) hypertension" /> </observation> </entryRelationship> </ act> </entry> <entry typeCode="DRIV"> <act moodCode="EVN" classCode="ACT"> <templateId root="216.840.1.990640...4.3" /> <id nullFlavor= "UNK" /> <code codeSystem="840.1.911396.5.6" code="CONC" displayName= "Concern" /> <statusCode code="completed" /> <effectiveTime> < low value="53605199" /> </effectiveTime> <entryRelationship typeCode= "SUBJ"> <observation moodCode="EVN" classCode="OBS"> < templateId root="840.1.942249.04.12.22.4.4" /> <id nullFlavor="UNK " /> <code codeSystem="840.1.603221.6.96" code="797202339" displayName="Diagnosis" /> <statusCode code="completed" /> < value codeSystem="" xsi:type="CD" code="J20.9" displayName="Acute bronchitis, unspecified" /> </observation> </entryRelationship> </act> </ entry> <entry typeCode="DRIV"> <act moodCode="EVN" classCode="ACT"> < templateId root="840.1.165271.04.12.22.4.3" /> <id nullFlavor="UNK" / > <code codeSystem="840.1.998993.5.6" code="CONC" displayName="Concern " /> <statusCode code="completed" /> <effectiveTime> <low value ="70198717" /> </effectiveTime> <entryRelationship typeCode="SUBJ"> <observation moodCode="EVN" classCode="OBS"> <templateId root= "840.1.598777.04.12.22.4.4" /> <id nullFlavor="UNK" /> < code codeSystem="840.1.130201.6.96" code="099808526" displayName="Diagnosis " /> <statusCode code="completed" /> <value codeSystem="" xsi: type="CD" code="M43.6" displayName="Torticollis" /> </observation> < /entryRelationship> </act> </entry> <entry typeCode="DRIV"> <act moodCode="EVN" classCode="ACT"> <templateId root= "216.840.1.705357.10.22.4.3" /> <id nullFlavor="UNK" /> <code codeSystem="216.840.1.367179.5.6" code="CONC" displayName="Concern" /> < statusCode code="completed" /> <effectiveTime> <low value="[id number] " /> </effectiveTime> <entryRelationship typeCode="SUBJ"> < observation moodCode="EVN" classCode="OBS"> <templateId root= "16.840.1.915081.10.22.4.4" /> <id nullFlavor="UNK" /> < code codeSystem="216.840.1.256201.6.96" code="[id number]" displayName="Diagnosis " /> <statusCode code="completed" /> <value codeSystem="" xsi: type="CD" code="I10" displayName="Essential (primary) hypertension" /> </ observation> </entryRelationship> </act> </entry> <entry typeCode= "DRIV"> <act moodCode="EVN" classCode="ACT"> <templateId root= "[id number].4.3" /> <id nullFlavor="UNK" /> <code codeSystem="216.840.1.161892.5.6" code="CONC" displayName="Concern" /> < statusCode code="completed" /> <effectiveTime> <low value="[id number] " /> </effectiveTime> <entryRelationship typeCode="SUBJ"> < observation moodCode="EVN" classCode="OBS"> <templateId root= "08.09.840.1.200443.10.22.4.4" /> <id nullFlavor="UNK" /> < code codeSystem="08.09.840.1.448242.6.96" code="384220501" displayName="Diagnosis " /> <statusCode code="completed" /> <value codeSystem="" xsi: type="CD" code="K29.70" displayName="Gastritis, unspecified, without bleeding" / > </observation> </entryRelationship> </act> </entry> <entry typeCode="DRIV"> <act moodCode="EVN" classCode="ACT"> <templateId root= "08.09.840.1.107090.10..4.3" /> <id nullFlavor="UNK" /> <code codeSystem="08.09.840.1.534797.5.6" code="CONC" displayName="Concern" /> < statusCode code="completed" /> <effectiveTime> <low value="20170627 " /> </effectiveTime> <entryRelationship typeCode="SUBJ"> < observation moodCode="EVN" classCode="OBS"> <templateId root= "08.09.840.1.975936.10.22.4.4" /> <id nullFlavor="UNK" /> < code codeSystem="08.09.840.1.692508.6.96" code="812398416" displayName="Diagnosis " /> <statusCode code="completed" /> <value codeSystem="" xsi: type="CD" code="R07.9" displayName="Chest pain, unspecified" /> </ observation> </entryRelationship> </act> </entry> <entry typeCode= "DRIV"> <act moodCode="EVN" classCode="ACT"> <templateId root= "08.09.840.1.771572.10.20.22.4.3" /> <id nullFlavor="UNK" /> <code codeSystem="08.09.840.1.550154.5.6" code="CONC" displayName="Concern" /> < statusCode code="completed" /> <effectiveTime> <low value="20170627 " /> </effectiveTime> <entryRelationship typeCode="SUBJ"> < observation moodCode="EVN" classCode="OBS"> <templateId root= "08.09.840.1.975862.10..22.4.4" /> <id nullFlavor="UNK" /> < code codeSystem="2.840.1.091473.6.96" code="973756102" displayName="Diagnosis " /> <statusCode code="completed" /> <value codeSystem="" xsi: type="CD" code="R47.1" displayName="Dysarthria and anarthria" /> </ observation> </entryRelationship> </act> </entry> <entry typeCode= "DRIV"> <act moodCode="EVN" classCode="ACT"> <templateId root= "08.09.840.1.433617.10..22.4.3" /> <id nullFlavor="UNK" /> <code codeSystem="2.840.1.187319.5.6" code="CONC" displayName="Concern" /> < statusCode code="completed" /> <effectiveTime> <low value="20170627 " /> </effectiveTime> <entryRelationship typeCode="SUBJ"> < observation moodCode="EVN" classCode="OBS"> <templateId root= "08.09.840.1.524702.10..22.4.4" /> <id nullFlavor="UNK" /> < code codeSystem="840.1.594245.6.96" code="184101641" displayName="Diagnosis " /> <statusCode code="completed" /> <value codeSystem="" xsi: type="CD" code="R53.1" displayName="Weakness" /> </observation> </ entryRelationship> </act> </entry> <entry typeCode="DRIV"> <act moodCode ="EVN" classCode="ACT"> <templateId root="08.09.840.1.437663.10.20.22.4.3" / > <id nullFlavor="UNK" /> <code codeSystem="840.1.225094.5.6" code="CONC" displayName="Concern" /> <statusCode code="completed" /> < effectiveTime> <low value="31464700" /> </effectiveTime> < entryRelationship typeCode="SUBJ"> <observation moodCode="EVN" classCode= "OBS"> <templateId root="08.09.840.1.889171.10..22.4.4" /> < id nullFlavor="UNK" /> <code codeSystem="840.1.707647.6.96" code= "400954462" displayName="Diagnosis" /> <statusCode code="completed" /> <value codeSystem="" xsi:type="CD" code="J09.X2" displayName= "Influenza due to identified novel influenza A virus with other respiratory manifestations" /> </observation> </entryRelationship> </act> </ entry> <entry typeCode="DRIV"> <act moodCode="EVN" classCode="ACT"> < templateId root="08.09.840.1.658920.10..4.3" /> <id nullFlavor="UNK" / > <code codeSystem="08.09.840.1.595798.5.6" code="CONC" displayName="Concern " /> <statusCode code="completed" /> <effectiveTime> <low value ="85665052" /> </effectiveTime> <entryRelationship typeCode="SUBJ"> <observation moodCode="EVN" classCode="OBS"> <templateId root= "840.1.131771.04.12.22.4.4" /> <id nullFlavor="UNK" /> < code codeSystem="08.09.840.1.810250.6.96" code="459720019" displayName="Diagnosis " /> <statusCode code="completed" /> <value codeSystem="" xsi: type="CD" code="R05" displayName="Cough" /> </observation> </ entryRelationship> </act> </entry> <entry typeCode="DRIV"> <act moodCode ="EVN" classCode="ACT"> <templateId root="08.09.840.1.857383.10...4.3" / > <id nullFlavor="UNK" /> <code codeSystem="08.09.840.1.325685.5.6" code="CONC" displayName="Concern" /> <statusCode code="completed" /> < effectiveTime> <low value="20855822" /> </effectiveTime> < entryRelationship typeCode="SUBJ"> <observation moodCode="EVN" classCode= "OBS"> <templateId root="08.09.840.1.232309.10..4.4" /> < id nullFlavor="UNK" /> <code codeSystem="216.840.1.250937.6.96" code= "642136780" displayName="Diagnosis" /> <statusCode code="completed" /> <value codeSystem="" xsi:type="CD" code="M25.512" displayName="Pain in left shoulder" /> </observation> </entryRelationship> </act> </entry> <entry typeCode="DRIV"> <act moodCode="EVN" classCode="ACT"> < templateId root="2.16.840.1.076158.10..22.4.3" /> <id nullFlavor="UNK" / > <code codeSystem="216.840.1.485559.5.6" code="CONC" displayName="Concern " /> <statusCode code="completed" /> <effectiveTime> <low value ="60011459" /> </effectiveTime> <entryRelationship typeCode="SUBJ"> <observation moodCode="EVN" classCode="OBS"> <templateId root= "216.840.1.514790...4.4" /> <id nullFlavor="UNK" /> < code codeSystem="2.16.840.1.538700.6.96" code="605042267" displayName="Diagnosis " /> <statusCode code="completed" /> <value codeSystem="" xsi: type="CD" code="Z51.89" displayName="Encounter for other specified aftercare" / > </observation> </entryRelationship> </act> </entry> <entry typeCode="DRIV"> <act moodCode="EVN" classCode="ACT"> <templateId root= "216.840.1.055585.10..22.4.3" /> <id nullFlavor="UNK" /> <code codeSystem="08.09.840.1.115797.5.6" code="CONC" displayName="Concern" /> < statusCode code="completed" /> <effectiveTime> <low value="58154788 " /> </effectiveTime> <entryRelationship typeCode="SUBJ"> < observation moodCode="EVN" classCode="OBS"> <templateId root= "08.09.840.1.937575...4.4" /> <id nullFlavor="UNK" /> < code codeSystem="840.1.022229.6.96" code="326860174" displayName="Diagnosis " /> <statusCode code="completed" /> <value codeSystem="" xsi: type="CD" code="M25.512" displayName="Pain in left shoulder" /> </ observation> </entryRelationship> </act> </entry> <entry typeCode= "DRIV"> <act moodCode="EVN" classCode="ACT"> <templateId root= "08.09.840.1.520417.04.12.22.4.3" /> <id nullFlavor="UNK" /> <code codeSystem="08.09.840.1.327838.5.6" code="CONC" displayName="Concern" /> < statusCode code="completed" /> <effectiveTime> <low value="20170708 " /> </effectiveTime> <entryRelationship typeCode="SUBJ"> < observation moodCode="EVN" classCode="OBS"> <templateId root= "08.09.840.1.888155.04.12.22.4.4" /> <id nullFlavor="UNK" /> < code codeSystem="08.09.840.1.836461.6.96" code="247141810" displayName="Diagnosis " /> <statusCode code="completed" /> <value codeSystem="" xsi: type="CD" code="Z51.89" displayName="Encounter for other specified aftercare" / > </observation> </entryRelationship> </act> </entry> <entry typeCode="DRIV"> <act moodCode="EVN" classCode="ACT"> <templateId root= "216.840.1.529401.10.20.22.4.3" /> <id nullFlavor="UNK" /> <code codeSystem="216.840.1.315877.5.6" code="CONC" displayName="Concern" /> < statusCode code="completed" /> <effectiveTime> <low value="80231308 " /> </effectiveTime> <entryRelationship typeCode="SUBJ"> < observation moodCode="EVN" classCode="OBS"> <templateId root= "08.09.840.1.369859.10.2022.4.4" /> <id nullFlavor="UNK" /> < code codeSystem="216.840.1.564709.6.96" code="676099727" displayName="Diagnosis " /> <statusCode code="completed" /> <value codeSystem="" xsi: type="CD" code="M25.512" displayName="Pain in left shoulder" /> </ observation> </entryRelationship> </act> </entry> <entry typeCode= "DRIV"> <act moodCode="EVN" classCode="ACT"> <templateId root= "08.09.840.1.349949.10.2022.4.3" /> <id nullFlavor="UNK" /> <code codeSystem="2.840.1.517471.5.6" code="CONC" displayName="Concern" /> < statusCode code="completed" /> <effectiveTime> <low value="22754475 " /> </effectiveTime> <entryRelationship typeCode="SUBJ"> < observation moodCode="EVN" classCode="OBS"> <templateId root= "08.09.840.1.401008.10.22.4.4" /> <id nullFlavor="UNK" /> < code codeSystem="840.1.703492.6.96" code="363111905" displayName="Diagnosis " /> <statusCode code="completed" /> <value codeSystem="" xsi: type="CD" code="Z51.89" displayName="Encounter for other specified aftercare" / > </observation> </entryRelationship> </act> </entry> <entry typeCode="DRIV"> <act moodCode="EVN" classCode="ACT"> <templateId root= "08.09.840.1.638382.10..4.3" /> <id nullFlavor="UNK" /> <code codeSystem="08.09.840.1.591523.5.6" code="CONC" displayName="Concern" /> < statusCode code="completed" /> <effectiveTime> <low value="63593263 " /> </effectiveTime> <entryRelationship typeCode="SUBJ"> < observation moodCode="EVN" classCode="OBS"> <templateId root= "08.09.840.1.707994.10.22.4.4" /> <id nullFlavor="UNK" /> < code codeSystem="08.09.840.1.335175.6.96" code="867678459" displayName="Diagnosis " /> <statusCode code="completed" /> <value codeSystem="" xsi: type="CD" code="M25.512" displayName="Pain in left shoulder" /> </ observation> </entryRelationship> </act> </entry> <entry typeCode= "DRIV"> <act moodCode="EVN" classCode="ACT"> <templateId root= "08.09.840.1.001773.10..22.4.3" /> <id nullFlavor="UNK" /> <code codeSystem="08.09.840.1.548168.5.6" code="CONC" displayName="Concern" /> < statusCode code="completed" /> <effectiveTime> <low value="20170719 " /> </effectiveTime> <entryRelationship typeCode="SUBJ"> < observation moodCode="EVN" classCode="OBS"> <templateId root= "08.09.840.1.832007.10..4.4" /> <id nullFlavor="UNK" /> < code codeSystem="2.840.1.664958.6.96" code="863513407" displayName="Diagnosis " /> <statusCode code="completed" /> <value codeSystem="" xsi: type="CD" code="Z51.89" displayName="Encounter for other specified aftercare" / > </observation> </entryRelationship> </act> </entry> <entry typeCode="DRIV"> <act moodCode="EVN" classCode="ACT"> <templateId root= "08.09.840.1.578189.10..4.3" /> <id nullFlavor="UNK" /> <code codeSystem="216.840.1.874000.5.6" code="CONC" displayName="Concern" /> < statusCode code="completed" /> <effectiveTime> <low value="20170719 " /> </effectiveTime> <entryRelationship typeCode="SUBJ"> < observation moodCode="EVN" classCode="OBS"> <templateId root= "08.09.840.1.423375.10.20.22.4.4" /> <id nullFlavor="UNK" /> < code codeSystem="840.1.034598.6.96" code="604899963" displayName="Diagnosis " /> <statusCode code="completed" /> <value codeSystem="" xsi: type="CD" code="J22" displayName="Unspecified acute lower respiratory infection " /> </observation> </entryRelationship> </act> </entry> < entry typeCode="DRIV"> <act moodCode="EVN" classCode="ACT"> <templateId root="08.09.840.1.416628.10.20.22.4.3" /> <id nullFlavor="UNK" /> < code codeSystem="2.840.1.349591.5.6" code="CONC" displayName="Concern" /> <statusCode code="completed" /> <effectiveTime> <low value= "25754774" /> </effectiveTime> <entryRelationship typeCode="SUBJ"> <observation moodCode="EVN" classCode="OBS"> <templateId root= "08.09.840.1.596031.10.20.22.4.4" /> <id nullFlavor="UNK" /> < code codeSystem="08.09.840.1.524630.6.96" code="575513503" displayName="Diagnosis " /> <statusCode code="completed" /> <value codeSystem="" xsi: type="CD" code="R53.83" displayName="Other fatigue" /> </observation> </entryRelationship> </act> </entry> <entry typeCode="DRIV"> <act moodCode="EVN" classCode="ACT"> <templateId root= "840.1.676438.10..22.4.3" /> <id nullFlavor="UNK" /> <code codeSystem="840.1.813908.5.6" code="CONC" displayName="Concern" /> < statusCode code="completed" /> <effectiveTime> <low value="58742200 " /> </effectiveTime> <entryRelationship typeCode="SUBJ"> < observation moodCode="EVN" classCode="OBS"> <templateId root= "840.1.838443.10..4.4" /> <id nullFlavor="UNK" /> < code codeSystem="08.09.840.1.233815.6.96" code="913400025" displayName="Diagnosis " /> <statusCode code="completed" /> <value codeSystem="" xsi: type="CD" code="I10" displayName="Essential (primary) hypertension" /> </ observation> </entryRelationship> </act> </entry> <entry typeCode= "DRIV"> <act moodCode="EVN" classCode="ACT"> <templateId root= "08.09.840.1.945365.10..22.4.3" /> <id nullFlavor="UNK" /> <code codeSystem="840.1.879949.5.6" code="CONC" displayName="Concern" /> < statusCode code="completed" /> <effectiveTime> <low value="53248085 " /> </effectiveTime> <entryRelationship typeCode="SUBJ"> < observation moodCode="EVN" classCode="OBS"> <templateId root= "08.09.840.1.153955.10..22.4.4" /> <id nullFlavor="UNK" /> < code codeSystem="216.840.1.716471.6.96" code="761247506" displayName="Diagnosis " /> <statusCode code="completed" /> <value codeSystem="" xsi: type="CD" code="K29.00" displayName="Acute gastritis without bleeding" /> </observation> </entryRelationship> </act> </entry> <entry typeCode= "DRIV"> <act moodCode="EVN" classCode="ACT"> <templateId root= "16.840.1.341637.10.20.22.4.3" /> <id nullFlavor="UNK" /> <code codeSystem="216.840.1.652610.5.6" code="CONC" displayName="Concern" /> < statusCode code="completed" /> <effectiveTime> <low value="84762558 " /> </effectiveTime> <entryRelationship typeCode="SUBJ"> < observation moodCode="EVN" classCode="OBS"> <templateId root= "08.09.840.1.282690.10..22.4.4" /> <id nullFlavor="UNK" /> < code codeSystem="216.840.1.312489.6.96" code="725513517" displayName="Diagnosis " /> <statusCode code="completed" /> <value codeSystem="" xsi: type="CD" code="R07.9" displayName="Chest pain, unspecified" /> </ observation> </entryRelationship> </act> </entry> <entry typeCode= "DRIV"> <act moodCode="EVN" classCode="ACT"> <templateId root= "16.840.1.235273.10.20.22.4.3" /> <id nullFlavor="UNK" /> <code codeSystem="840.1.522409.5.6" code="CONC" displayName="Concern" /> < statusCode code="completed" /> <effectiveTime> <low value="20170819 " /> </effectiveTime> <entryRelationship typeCode="SUBJ"> < observation moodCode="EVN" classCode="OBS"> <templateId root= "840.1.601702.10..4.4" /> <id nullFlavor="UNK" /> < code codeSystem="840.1.865772.6.96" code="201910211" displayName="Diagnosis " /> <statusCode code="completed" /> <value codeSystem="" xsi: type="CD" code="R10.9" displayName="Unspecified abdominal pain" /> </ observation> </entryRelationship> </act> </entry> <entry typeCode= "DRIV"> <act moodCode="EVN" classCode="ACT"> <templateId root= "840.1.840953.04.12.22.4.3" /> <id nullFlavor="UNK" /> <code codeSystem="840.1.853442.5.6" code="CONC" displayName="Concern" /> < statusCode code="completed" /> <effectiveTime> <low value="20170917 " /> </effectiveTime> <entryRelationship typeCode="SUBJ"> < observation moodCode="EVN" classCode="OBS"> <templateId root= "840.1.214403.04.12.22.4.4" /> <id nullFlavor="UNK" /> < code codeSystem="840.1.914222.6.96" code="507818640" displayName="Diagnosis " /> <statusCode code="completed" /> <value codeSystem="I9" xsi:type="CD" code="379.21" displayName="VitreousDegenerationDetachment" /> </observation> </entryRelationship> </act> </entry> <entry typeCode="DRIV"> <act moodCode="EVN" classCode="ACT"> <templateId root= "2.840.1.080367.10.22.4.3" /> <id nullFlavor="UNK" /> <code codeSystem="2.840.1.893791.5.6" code="CONC" displayName="Concern" /> < statusCode code="completed" /> <effectiveTime> <low value="97998007 " /> </effectiveTime> <entryRelationship typeCode="SUBJ"> < observation moodCode="EVN" classCode="OBS"> <templateId root= "08.09.840.1.351903.10.22.4.4" /> <id nullFlavor="UNK" /> < code codeSystem="2.840.1.479494.6.96" code="082646331" displayName="Diagnosis " /> <statusCode code="completed" /> <value codeSystem="" xsi: type="CD" code="Z12.31" displayName="Encounter for screening mammogram for malignant neoplasm of breast" /> </observation> </entryRelationship > </act> </entry> <entry typeCode="DRIV"> <act moodCode="EVN" classCode= "ACT"> <templateId root="08.09.840.1.719401.10.2022.4.3" /> <id nullFlavor="UNK" /> <code codeSystem="2.840.1.885645.5.6" code="CONC" displayName="Concern" /> <statusCode code="completed" /> < effectiveTime> <low value="20171023" /> </effectiveTime> < entryRelationship typeCode="SUBJ"> <observation moodCode="EVN" classCode= "OBS"> <templateId root="08.09.840.1.141375.10..4.4" /> < id nullFlavor="UNK" /> <code codeSystem="840.1.992629.6.96" code= "586072566" displayName="Diagnosis" /> <statusCode code="completed" /> <value codeSystem="" xsi:type="CD" code="M54.32" displayName="Sciatica , left side" /> </observation> </entryRelationship> </act> </ entry> <entry typeCode="DRIV"> <act moodCode="EVN" classCode="ACT"> < templateId root="840.1.464291.10..4.3" /> <id nullFlavor="UNK" / > <code codeSystem="08.09.840.1.040956.5.6" code="CONC" displayName="Concern " /> <statusCode code="completed" /> <effectiveTime> <low value ="20171023" /> </effectiveTime> <entryRelationship typeCode="SUBJ"> <observation moodCode="EVN" classCode="OBS"> <templateId root= "08.09.840.1.114503.10.22.4.4" /> <id nullFlavor="UNK" /> < code codeSystem="08.09.840.1.981147.6.96" code="760614227" displayName="Diagnosis " /> <statusCode code="completed" /> <value codeSystem="" xsi: type="CD" code="Z51.89" displayName="Encounter for other specified aftercare" / > </observation> </entryRelationship> </act> </entry> <entry typeCode="DRIV"> <act moodCode="EVN" classCode="ACT"> <templateId root= "08.09.840.1.368219.10..22.4.3" /> <id nullFlavor="UNK" /> <code codeSystem="08.09.840.1.558409.5.6" code="CONC" displayName="Concern" /> < statusCode code="completed" /> <effectiveTime> <low value="20171023 " /> </effectiveTime> <entryRelationship typeCode="SUBJ"> < observation moodCode="EVN" classCode="OBS"> <templateId root= "08.09.840.1.181729.10..22.4.4" /> <id nullFlavor="UNK" /> < code codeSystem="2.840.1.649346.6.96" code="591131430" displayName="Diagnosis " /> <statusCode code="completed" /> <value codeSystem="" xsi: type="CD" code="M54.32" displayName="Sciatica, left side" /> </ observation> </entryRelationship> </act> </entry> <entry typeCode= "DRIV"> <act moodCode="EVN" classCode="ACT"> <templateId root= "08.09.840.1.588436.10..4.3" /> <id nullFlavor="UNK" /> <code codeSystem="08.09.840.1.478317.5.6" code="CONC" displayName="Concern" /> < statusCode code="completed" /> <effectiveTime> <low value="20171023 " /> </effectiveTime> <entryRelationship typeCode="SUBJ"> < observation moodCode="EVN" classCode="OBS"> <templateId root= "08.09.840.1.973295.10..22.4.4" /> <id nullFlavor="UNK" /> < code codeSystem="840.1.940361.6.96" code="652326997" displayName="Diagnosis " /> <statusCode code="completed" /> <value codeSystem="" xsi: type="CD" code="Z51.89" displayName="Encounter for other specified aftercare" / > </observation> </entryRelationship> </act> </entry> <entry typeCode="DRIV"> <act moodCode="EVN" classCode="ACT"> <templateId root= "08.09.840.1.245664.10..22.4.3" /> <id nullFlavor="UNK" /> <code codeSystem="840.1.773275.5.6" code="CONC" displayName="Concern" /> < statusCode code="completed" /> <effectiveTime> <low value="74775427 " /> </effectiveTime> <entryRelationship typeCode="SUBJ"> < observation moodCode="EVN" classCode="OBS"> <templateId root= "08.09.840.1.892569.10..22.4.4" /> <id nullFlavor="UNK" /> < code codeSystem="08.09.840.1.283216.6.96" code="881524975" displayName="Diagnosis " /> <statusCode code="completed" /> <value codeSystem="" xsi: type="CD" code="M54.32" displayName="Sciatica, left side" /> </ observation> </entryRelationship> </act> </entry> <entry typeCode= "DRIV"> <act moodCode="EVN" classCode="ACT"> <templateId root= "840.1.574446.10...4.3" /> <id nullFlavor="UNK" /> <code codeSystem="840.1.241229.5.6" code="CONC" displayName="Concern" /> < statusCode code="completed" /> <effectiveTime> <low value="20171023 " /> </effectiveTime> <entryRelationship typeCode="SUBJ"> < observation moodCode="EVN" classCode="OBS"> <templateId root= "840.1.485048...4.4" /> <id nullFlavor="UNK" /> < code codeSystem="840.1.823854.6.96" code="106844111" displayName="Diagnosis " /> <statusCode code="completed" /> <value codeSystem="" xsi: type="CD" code="Z51.89" displayName="Encounter for other specified aftercare" / > </observation> </entryRelationship> </act> </entry> <entry typeCode="DRIV"> <act moodCode="EVN" classCode="ACT"> <templateId root= "08.09.840.1.645639.10...4.3" /> <id nullFlavor="UNK" /> <code codeSystem="840.1.529602.5.6" code="CONC" displayName="Concern" /> < statusCode code="completed" /> <effectiveTime> <low value="20171123 " /> </effectiveTime> <entryRelationship typeCode="SUBJ"> < observation moodCode="EVN" classCode="OBS"> <templateId root= "08.09.840.1.315753.10..4.4" /> <id nullFlavor="UNK" /> < code codeSystem="216.840.1.307049.6.96" code="380347824" displayName="Diagnosis " /> <statusCode code="completed" /> <value codeSystem="I10" xsi:type="CD" code="G47.31" displayName="Primary central sleep apnea" /> </observation> </entryRelationship> </act> </entry> <entry typeCode= "DRIV"> <act moodCode="EVN" classCode="ACT"> <templateId root= "216.840.1.882950.10..4.3" /> <id nullFlavor="UNK" /> <code codeSystem="216.840.1.375405.5.6" code="CONC" displayName="Concern" /> < statusCode code="completed" /> <effectiveTime> <low value="50307381 " /> </effectiveTime> <entryRelationship typeCode="SUBJ"> < observation moodCode="EVN" classCode="OBS"> <templateId root= "216.840.1.906087.10..4.4" /> <id nullFlavor="UNK" /> < code codeSystem="2.16.840.1.531333.6.96" code="282221190" displayName="Diagnosis " /> <statusCode code="completed" /> <value codeSystem="" xsi: type="CD" code="I10" displayName="Essential (primary) hypertension" /> </ observation> </entryRelationship> </act> </entry> <entry typeCode= "DRIV"> <act moodCode="EVN" classCode="ACT"> <templateId root= "216.840.1.743697.10.22.4.3" /> <id nullFlavor="UNK" /> <code codeSystem="840.1.498559.5.6" code="CONC" displayName="Concern" /> < statusCode code="completed" /> <effectiveTime> <low value="86233838 " /> </effectiveTime> <entryRelationship typeCode="SUBJ"> < observation moodCode="EVN" classCode="OBS"> <templateId root= "840.1.645492...4.4" /> <id nullFlavor="UNK" /> < code codeSystem="840.1.034237.6.96" code="290877604" displayName="Diagnosis " /> <statusCode code="completed" /> <value codeSystem="" xsi: type="CD" code="I20.9" displayName="Angina pectoris, unspecified" /> </ observation> </entryRelationship> </act> </entry> <entry typeCode= "DRIV"> <act moodCode="EVN" classCode="ACT"> <templateId root= "840.1.322742.04.12.22.4.3" /> <id nullFlavor="UNK" /> <code codeSystem="840.1.887325.5.6" code="CONC" displayName="Concern" /> < statusCode code="completed" /> <effectiveTime> <low value="18765834 " /> </effectiveTime> <entryRelationship typeCode="SUBJ"> < observation moodCode="EVN" classCode="OBS"> <templateId root= "840.1.122880.04.12.22.4.4" /> <id nullFlavor="UNK" /> < code codeSystem="840.1.189734.6.96" code="062005417" displayName="Diagnosis " /> <statusCode code="completed" /> <value codeSystem="" xsi: type="CD" code="J44.9" displayName="Chronic obstructive pulmonary disease, unspecified" /> </observation> </entryRelationship> </act> </ entry> <entry typeCode="DRIV"> <act moodCode="EVN" classCode="ACT"> < templateId root="[id number]" /> <id nullFlavor="UNK" / > <code codeSystem="216.840.1.993571.5.6" code="CONC" displayName="Concern " /> <statusCode code="completed" /> <effectiveTime> <low value ="[id number]" /> </effectiveTime> <entryRelationship typeCode="SUBJ"> <observation moodCode="EVN" classCode="OBS"> <templateId root= "216.840.1.909424.10.22.4.4" /> <id nullFlavor="UNK" /> < code codeSystem="216.840.1.381981.6.96" code="[id number]" displayName="Diagnosis " /> <statusCode code="completed" /> <value codeSystem="" xsi: type="CD" code="R06.02" displayName="Shortness of breath" /> </ observation> </entryRelationship> </act> </entry> <entry typeCode= "DRIV"> <act moodCode="EVN" classCode="ACT"> <templateId root= "216.840.1.888921.10.22.4.3" /> <id nullFlavor="UNK" /> <code codeSystem="216.840.1.454476.5.6" code="CONC" displayName="Concern" /> < statusCode code="completed" /> <effectiveTime> <low value="[id number] " /> </effectiveTime> <entryRelationship typeCode="SUBJ"> < observation moodCode="EVN" classCode="OBS"> <templateId root= "08.09.840.1.431906.10.22.4.4" /> <id nullFlavor="UNK" /> < code codeSystem="840.1.192882.6.96" code="671439654" displayName="Diagnosis " /> <statusCode code="completed" /> <value codeSystem="" xsi: type="CD" code="R07.9" displayName="Chest pain, unspecified" /> </ observation> </entryRelationship> </act> </entry> <entry typeCode= "DRIV"> <act moodCode="EVN" classCode="ACT"> <templateId root= "08.09.840.1.064801.10.22.4.3" /> <id nullFlavor="UNK" /> <code codeSystem="08.09.840.1.169181.5.6" code="CONC" displayName="Concern" /> < statusCode code="completed" /> <effectiveTime> <low value="50607598 " /> </effectiveTime> <entryRelationship typeCode="SUBJ"> < observation moodCode="EVN" classCode="OBS"> <templateId root= "08.09.840.1.444892.10.22.4.4" /> <id nullFlavor="UNK" /> < code codeSystem="08.09.840.1.171138.6.96" code="460660316" displayName="Diagnosis " /> <statusCode code="completed" /> <value codeSystem="" xsi: type="CD" code="M54.32" displayName="Sciatica, left side" /> </ observation> </entryRelationship> </act> </entry> <entry typeCode= "DRIV"> <act moodCode="EVN" classCode="ACT"> <templateId root= "08.09.840.1.693386.10.20.22.4.3" /> <id nullFlavor="UNK" /> <code codeSystem="08.09.840.1.171755.5.6" code="CONC" displayName="Concern" /> < statusCode code="completed" /> <effectiveTime> <low value="12125426 " /> </effectiveTime> <entryRelationship typeCode="SUBJ"> < observation moodCode="EVN" classCode="OBS"> <templateId root= "08.09.840.1.662366.10..22.4.4" /> <id nullFlavor="UNK" /> < code codeSystem="2.840.1.758837.6.96" code="950163096" displayName="Diagnosis " /> <statusCode code="completed" /> <value codeSystem="" xsi: type="CD" code="Z51.89" displayName="Encounter for other specified aftercare" / > </observation> </entryRelationship> </act> </entry> <entry typeCode="DRIV"> <act moodCode="EVN" classCode="ACT"> <templateId root= "08.09.840.1.982389.10..22.4.3" /> <id nullFlavor="UNK" /> <code codeSystem="08.09.840.1.252151.5.6" code="CONC" displayName="Concern" /> < statusCode code="completed" /> <effectiveTime> <low value="20171219 " /> </effectiveTime> <entryRelationship typeCode="SUBJ"> < observation moodCode="EVN" classCode="OBS"> <templateId root= "08.09.840.1.640660.10.20.22.4.4" /> <id nullFlavor="UNK" /> < code codeSystem="08.09.840.1.744563.6.96" code="581253067" displayName="Diagnosis " /> <statusCode code="completed" /> <value codeSystem="" xsi: type="CD" code="N89.8" displayName="Other specified noninflammatory disorders of vagina" /> </observation> </entryRelationship> </act> </entry > <entry typeCode="DRIV"> <act moodCode="EVN" classCode="ACT"> < templateId root="08.09.840.1.222246.10.20.22.4.3" /> <id nullFlavor="UNK" / > <code codeSystem="2.840.1.385042.5.6" code="CONC" displayName="Concern " /> <statusCode code="completed" /> <effectiveTime> <low value ="45111850" /> </effectiveTime> <entryRelationship typeCode="SUBJ"> <observation moodCode="EVN" classCode="OBS"> <templateId root= "08.09.840.1.117065.10.20.22.4.4" /> <id nullFlavor="UNK" /> < code codeSystem="08.09.840.1.452989.6.96" code="468539927" displayName="Diagnosis " /> <statusCode code="completed" /> <value codeSystem="" xsi: type="CD" code="I10" displayName="Essential (primary) hypertension" /> </ observation> </entryRelationship> </act> </entry> <entry typeCode= "DRIV"> <act moodCode="EVN" classCode="ACT"> <templateId root= "840.1.016985.10..4.3" /> <id nullFlavor="UNK" /> <code codeSystem="840.1.770152.5.6" code="CONC" displayName="Concern" /> < statusCode code="completed" /> <effectiveTime> <low value="20171230 " /> </effectiveTime> <entryRelationship typeCode="SUBJ"> < observation moodCode="EVN" classCode="OBS"> <templateId root= "840.1.635703...4.4" /> <id nullFlavor="UNK" /> < code codeSystem="840.1.401806.6.96" code="841406054" displayName="Diagnosis " /> <statusCode code="completed" /> <value codeSystem="" xsi: type="CD" code="J44.9" displayName="Chronic obstructive pulmonary disease, unspecified" /> </observation> </entryRelationship> </act> </ entry> <entry typeCode="DRIV"> <act moodCode="EVN" classCode="ACT"> < templateId root="840.1.664192.10...4.3" /> <id nullFlavor="UNK" / > <code codeSystem="840.1.628176.5.6" code="CONC" displayName="Concern " /> <statusCode code="completed" /> <effectiveTime> <low value ="18933058" /> </effectiveTime> <entryRelationship typeCode="SUBJ"> <observation moodCode="EVN" classCode="OBS"> <templateId root= "840.1.578092.04.12.22.4.4" /> <id nullFlavor="UNK" /> < code codeSystem="216.840.1.127373.6.96" code="186889215" displayName="Diagnosis " /> <statusCode code="completed" /> <value codeSystem="" xsi: type="CD" code="R07.89" displayName="Other chest pain" /> </observation> </entryRelationship> </act> </entry> <entry typeCode="DRIV"> <act moodCode="EVN" classCode="ACT"> <templateId root= "216.840.1.797436.04.12.22.4.3" /> <id nullFlavor="UNK" /> <code codeSystem="216.840.1.286834.5.6" code="CONC" displayName="Concern" /> < statusCode code="completed" /> <effectiveTime> <low value="05730007 " /> </effectiveTime> <entryRelationship typeCode="SUBJ"> < observation moodCode="EVN" classCode="OBS"> <templateId root= "16.840.1.742549.04.12.22.4.4" /> <id nullFlavor="UNK" /> < code codeSystem="216.840.1.836993.6.96" code="397041243" displayName="Diagnosis " /> <statusCode code="completed" /> <value codeSystem="" xsi: type="CD" code="R30.9" displayName="Painful micturition, unspecified" /> </observation> </entryRelationship> </act> </entry> <entry typeCode= "DRIV"> <act moodCode="EVN" classCode="ACT"> <templateId root= "216.840.1.436489.04.12.22.4.3" /> <id nullFlavor="UNK" /> <code codeSystem="840.1.821734.5.6" code="CONC" displayName="Concern" /> < statusCode code="completed" /> <effectiveTime> <low value="16024973 " /> </effectiveTime> <entryRelationship typeCode="SUBJ"> < observation moodCode="EVN" classCode="OBS"> <templateId root= "840.1.529741.04.12.224.4" /> <id nullFlavor="UNK" /> < code codeSystem="840.1.484015.6.96" code="470522133" displayName="Diagnosis " /> <statusCode code="completed" /> <value codeSystem="" xsi: type="CD" code="I10" displayName="Essential (primary) hypertension" /> </ observation> </entryRelationship> </act> </entry> <entry typeCode= "DRIV"> <act moodCode="EVN" classCode="ACT"> <templateId root= "840.1.484293.04.12.224.3" /> <id nullFlavor="UNK" /> <code codeSystem="840.1.713369.5.6" code="CONC" displayName="Concern" /> < statusCode code="completed" /> <effectiveTime> <low value="79129509 " /> </effectiveTime> <entryRelationship typeCode="SUBJ"> < observation moodCode="EVN" classCode="OBS"> <templateId root= "08.09.840.1.310305.04.12.22.4.4" /> <id nullFlavor="UNK" /> < code codeSystem="08.09.840.1.739975.6.96" code="272009017" displayName="Diagnosis " /> <statusCode code="completed" /> <value codeSystem="" xsi: type="CD" code="K21.9" displayName="Gastro-esophageal reflux disease without esophagitis" /> </observation> </entryRelationship> </act> </ entry> <entry typeCode="DRIV"> <act moodCode="EVN" classCode="ACT"> < templateId root="216.840.1.005445.10..22.4.3" /> <id nullFlavor="UNK" / > <code codeSystem="216.840.1.526074.5.6" code="CONC" displayName="Concern " /> <statusCode code="completed" /> <effectiveTime> <low value ="43578516" /> </effectiveTime> <entryRelationship typeCode="SUBJ"> <observation moodCode="EVN" classCode="OBS"> <templateId root= "08.09.840.1.181796.10..22.4.4" /> <id nullFlavor="UNK" /> < code codeSystem="2.840.1.010520.6.96" code="928268578" displayName="Diagnosis " /> <statusCode code="completed" /> <value codeSystem="" xsi: type="CD" code="N39.0" displayName="Urinary tract infection, site not specified " /> </observation> </entryRelationship> </act> </entry> < entry typeCode="DRIV"> <act moodCode="EVN" classCode="ACT"> <templateId root="08.09.840.1.034250.10..22.4.3" /> <id nullFlavor="UNK" /> < code codeSystem="216.840.1.275696.5.6" code="CONC" displayName="Concern" /> <statusCode code="completed" /> <effectiveTime> <low value= "20180115" /> </effectiveTime> <entryRelationship typeCode="SUBJ"> <observation moodCode="EVN" classCode="OBS"> <templateId root= "840.1.960840.10..4.4" /> <id nullFlavor="UNK" /> < code codeSystem="840.1.697135.6.96" code="179221780" displayName="Diagnosis " /> <statusCode code="completed" /> <value codeSystem="" xsi: type="CD" code="R10.32" displayName="Left lower quadrant pain" /> </ observation> </entryRelationship> </act> </entry> <entry typeCode= "DRIV"> <act moodCode="EVN" classCode="ACT"> <templateId root= "840.1.061339.10..4.3" /> <id nullFlavor="UNK" /> <code codeSystem="840.1.369802.5.6" code="CONC" displayName="Concern" /> < statusCode code="completed" /> <effectiveTime> <low value="20180115 " /> </effectiveTime> <entryRelationship typeCode="SUBJ"> < observation moodCode="EVN" classCode="OBS"> <templateId root= "840.1.453922.10..4.4" /> <id nullFlavor="UNK" /> < code codeSystem="08.09.840.1.778140.6.96" code="557143577" displayName="Diagnosis " /> <statusCode code="completed" /> <value codeSystem="" xsi: type="CD" code="I10" displayName="Essential (primary) hypertension" /> </ observation> </entryRelationship> </act> </entry> <entry typeCode= "DRIV"> <act moodCode="EVN" classCode="ACT"> <templateId root= "08.09.840.1.297459.10.20.22.4.3" /> <id nullFlavor="UNK" /> <code codeSystem="08.09.840.1.496601.5.6" code="CONC" displayName="Concern" /> < statusCode code="completed" /> <effectiveTime> <low value="20180115 " /> </effectiveTime> <entryRelationship typeCode="SUBJ"> < observation moodCode="EVN" classCode="OBS"> <templateId root= "08.09.840.1.165434.10...4.4" /> <id nullFlavor="UNK" /> < code codeSystem="2.840.1.589720.6.96" code="803039646" displayName="Diagnosis " /> <statusCode code="completed" /> <value codeSystem="" xsi: type="CD" code="K21.9" displayName="Gastro-esophageal reflux disease without esophagitis" /> </observation> </entryRelationship> </act> </ entry> <entry typeCode="DRIV"> <act moodCode="EVN" classCode="ACT"> < templateId root="08.09.840.1.963578.10..22.4.3" /> <id nullFlavor="UNK" / > <code codeSystem="08.09.840.1.680592.5.6" code="CONC" displayName="Concern " /> <statusCode code="completed" /> <effectiveTime> <low value ="20180115" /> </effectiveTime> <entryRelationship typeCode="SUBJ"> <observation moodCode="EVN" classCode="OBS"> <templateId root= "08.09.840.1.241692.10.20.22.4.4" /> <id nullFlavor="UNK" /> < code codeSystem="840.1.939856.6.96" code="483322754" displayName="Diagnosis " /> <statusCode code="completed" /> <value codeSystem="" xsi: type="CD" code="N39.0" displayName="Urinary tract infection, site not specified " /> </observation> </entryRelationship> </act> </entry> < entry typeCode="DRIV"> <act moodCode="EVN" classCode="ACT"> <templateId root="08.09.840.1.312619.10.20.22.4.3" /> <id nullFlavor="UNK" /> < code codeSystem="08.09.840.1.336190.5.6" code="CONC" displayName="Concern" /> <statusCode code="completed" /> <effectiveTime> <low value= "27965280" /> </effectiveTime> <entryRelationship typeCode="SUBJ"> <observation moodCode="EVN" classCode="OBS"> <templateId root= "08.09.840.1.757835.10.20.22.4.4" /> <id nullFlavor="UNK" /> < code codeSystem="08.09.840.1.963006.6.96" code="666676500" displayName="Diagnosis " /> <statusCode code="completed" /> <value codeSystem="" xsi: type="CD" code="R10.32" displayName="Left lower quadrant pain" /> </ observation> </entryRelationship> </act> </entry> <entry typeCode= "DRIV"> <act moodCode="EVN" classCode="ACT"> <templateId root= "840.1.665328.10..4.3" /> <id nullFlavor="UNK" /> <code codeSystem="840.1.546351.5.6" code="CONC" displayName="Concern" /> < statusCode code="completed" /> <effectiveTime> <low value="20180115 " /> </effectiveTime> <entryRelationship typeCode="SUBJ"> < observation moodCode="EVN" classCode="OBS"> <templateId root= "840.1.646081.04.12.22.4.4" /> <id nullFlavor="UNK" /> < code codeSystem="840.1.448972.6.96" code="132420951" displayName="Diagnosis " /> <statusCode code="completed" /> <value codeSystem="" xsi: type="CD" code="I10" displayName="Essential (primary) hypertension" /> </ observation> </entryRelationship> </act> </entry> <entry typeCode= "DRIV"> <act moodCode="EVN" classCode="ACT"> <templateId root= "840.1.523935.10..4.3" /> <id nullFlavor="UNK" /> <code codeSystem="840.1.466215.5.6" code="CONC" displayName="Concern" /> < statusCode code="completed" /> <effectiveTime> <low value="20180115 " /> </effectiveTime> <entryRelationship typeCode="SUBJ"> < observation moodCode="EVN" classCode="OBS"> <templateId root= "840.1.535163.04.12.22.4.4" /> <id nullFlavor="UNK" /> < code codeSystem="216.840.1.997770.6.96" code="839369666" displayName="Diagnosis " /> <statusCode code="completed" /> <value codeSystem="" xsi: type="CD" code="J44.9" displayName="Chronic obstructive pulmonary disease, unspecified" /> </observation> </entryRelationship> </act> </ entry> <entry typeCode="DRIV"> <act moodCode="EVN" classCode="ACT"> < templateId root="216.840.1.091667.04.12.22.4.3" /> <id nullFlavor="UNK" / > <code codeSystem="216.840.1.459233.5.6" code="CONC" displayName="Concern " /> <statusCode code="completed" /> <effectiveTime> <low value ="30571491" /> </effectiveTime> <entryRelationship typeCode="SUBJ"> <observation moodCode="EVN" classCode="OBS"> <templateId root= "16.840.1.352695.04.12.22.4.4" /> <id nullFlavor="UNK" /> < code codeSystem="216.840.1.773058.6.96" code="384562986" displayName="Diagnosis " /> <statusCode code="completed" /> <value codeSystem="" xsi: type="CD" code="K21.9" displayName="Gastro-esophageal reflux disease without esophagitis" /> </observation> </entryRelationship> </act> </ entry> <entry typeCode="DRIV"> <act moodCode="EVN" classCode="ACT"> < templateId root="216.840.1.346119.04.12.22.4.3" /> <id nullFlavor="UNK" / > <code codeSystem="08.09.840.1.110550.5.6" code="CONC" displayName="Concern " /> <statusCode code="completed" /> <effectiveTime> <low value ="55296915" /> </effectiveTime> <entryRelationship typeCode="SUBJ"> <observation moodCode="EVN" classCode="OBS"> <templateId root= "840.1.842994.04.12.224.4" /> <id nullFlavor="UNK" /> < code codeSystem="08.09.840.1.968434.6.96" code="682571221" displayName="Diagnosis " /> <statusCode code="completed" /> <value codeSystem="" xsi: type="CD" code="R10.32" displayName="Left lower quadrant pain" /> </ observation> </entryRelationship> </act> </entry> <entry typeCode= "DRIV"> <act moodCode="EVN" classCode="ACT"> <templateId root= "08.09.840.1.826078.04.12.224.3" /> <id nullFlavor="UNK" /> <code codeSystem="08.09.840.1.628982.5.6" code="CONC" displayName="Concern" /> < statusCode code="completed" /> <effectiveTime> <low value="20180128 " /> </effectiveTime> <entryRelationship typeCode="SUBJ"> < observation moodCode="EVN" classCode="OBS"> <templateId root= "08.09.840.1.891306.04.12.224.4" /> <id nullFlavor="UNK" /> < code codeSystem="08.09.840.1.022160.6.96" code="996742252" displayName="Diagnosis " /> <statusCode code="completed" /> <value codeSystem="" xsi: type="CD" code="I10" displayName="Essential (primary) hypertension" /> </ observation> </entryRelationship> </act> </entry></section> < section> <templateId root="2.16.840.1.193694.10.20.22.2.7" /> <templateId root ="2.16.840.1.262617.10.20.22.2.7.1" /> <code codeSystemName="LOINC" codeSystem= "2.16.840.1.894801.6.1" code="11299-5" displayName="History of Procedures" /> < title>Procedures</title> <text> <table> <thead> <tr> < th>Code</th> <th>Description</th> <th>Performed By</th> <th>Performed On</th> </tr> </thead> <tbody> <tr> <td> <content ID="proc_code_5138">51180</content> </ td> <td> <content ID="proc_desc5138">ROUTINE VENIPUNCTURE</ content> </td> <td>JACOB LANDRUM DO</td> <td>02/2011</td> </tr> <tr> <td> <content ID="proc _code_5140">34980</content> </td> <td> <content ID= "proc_desc5140">COMPREHEN METABOLIC PANEL</content> </td> <td> JACOB LANDRUM DO</td> <td>05/02/2011</td> </tr> <tr> <td> <content ID="proc_code_5143">37032</content> </td> <td> <content ID="proc_desc5143">URINALYSIS, AUTO W/ SCOPE</content> </td> <td>JACOB LANDRUM DO</td> < td>05/02/2011</td> </tr> <tr> <td> <content ID ="proc_code_5142">42562</content> </td> <td> < content ID="proc_desc5142">GLYCOSYLATED HEMOGLOBIN TEST</content> </td > <td>JACOB LANDRUM DO</td> <td>05/02/2011</td> </ tr> <tr> <td> <content ID="proc_code_5141">56503</ content> </td> <td> <content ID="proc_desc5141"> ASSAY THYROID STIM HORMONE</content> </td> <td>JACOB LANDRUM DO</td> <td>05/02/2011</td> </tr> <tr> < td> <content ID="proc_code_5139">08975</content> </td> <td> <content ID="proc_desc5139">COMPLETE CBC W/AUTO DIFF WBC</ content> </td> <td>JACOB LANDRUM DO</td> <td>02/2011</td> </tr> <tr> <td> <content ID="proc _code_5130">65167</content> </td> <td> <content ID= "proc_desc5130">ROUTINE VENIPUNCTURE</content> </td> <td> ARNOLDO WINSTON MD</td> <td>07/26/2011</td> </tr> <tr> <td> <content ID="proc_code_5131">69654</content> </td> <td> <content ID="proc_desc5131">CHEST X-RAY</ content> </td> <td>ARNOLDO WINSTON MD</td> < td>07/26/2011</td> </tr> <tr> <td> <content ID ="proc_code_5129">75817</content> </td> <td> < content ID="proc_desc5129">COMPREHEN METABOLIC PANEL</content> </td> <td>ARNOLDO WINSTON MD</td> <td>07/26/2011</td> </tr> <tr> <td> <content ID="proc_code_5128">15864</ content> </td> <td> <content ID="proc_desc5128"> COMPLETE CBC W/AUTO DIFF WBC</content> </td> <td>ARNOLDO WINSTON MD</td> <td>07/26/2011</td> </tr> <tr> <td> <content ID="proc_code_5135">30864</content> </td> <td> <content ID="proc_desc5135">ELECTROCARDIOGRAM, TRACING< /content> </td> <td>ARNOLDO WINSTON MD</td> < td>07/26/2011</td> </tr> <tr> <td> <content ID ="proc_code_5132">31490</content> </td> <td> < content ID="proc_desc5132">THER/PROPH/DIAG INJ, SC/IM</content> </td> <td>ARNOLDO WINSTON MD</td> <td>07/26/2011</td> </tr> <tr> <td> <content ID="proc_code_5133">71504< /content> </td> <td> <content ID="proc_desc5133"> EMERGENCY DEPT VISIT</content> </td> <td>ARNOLDO WINSTON MD</td> <td>07/26/2011</td> </tr> <tr> <td> <content ID="proc_code_5134">J1885</content> </td> <td> <content ID="proc_desc5134">KETOROLAC TROMETHAMINE INJ< /content> </td> <td>ARNOLDO WINSTON MD</td> < td>07/26/2011</td> </tr> <tr> <td> <content ID ="proc_code_5112">82469</content> </td> <td> < content ID="proc_desc5112">ROUTINE VENIPUNCTURE</content> </td> <td>JACOB LANDRUM DO</td> <td>08/07/2011</td> </tr> <tr> <td> <content ID="proc_code_5113">48261</content> </td> <td> <content ID="proc_desc5113">CHEST X-RAY</ content> </td> <td>JACOB LANDRUM DO</td> <td></td> </tr> <tr> <td> <content ID="proc _code_5111">03194</content> </td> <td> <content ID= "proc_desc5111">COMPREHEN METABOLIC PANEL</content> </td> <td> LUCITAJACOB Cee DO</td> <td>08/07/2011</td> </tr> <tr> <td> <content ID="proc_code_5110">55872</content> </td> <td> <content ID="proc_desc5110">COMPLETE CBC W/AUTO DIFF WBC</content> </td> <td>LUCITAJACOB Cee DO</td> <td>08/07/2011</td> </tr> <tr> <td> < content ID="proc_code_5120">41091</content> </td> <td> <content ID="proc_desc5120">THER/PROPH/DIAG IV INF, INIT</content> </td> <td>LUCITAJACOB Cee DO</td> <td>08/07/2011</td> </tr> <tr> <td> <content ID="proc_code_5121"> 78987</content> </td> <td> <content ID="proc_ vybc3726">THER/PROPH/DIAG IV INF ADDON</content> </td> <td> LUCITA DO, JACOB Albarran</td> <td>08/07/2011</td> </tr> <tr> <td> <content ID="proc_code_5126">69202</content> </td> <td> <content ID="proc_desc5126">THER/PROPH/DIAG INJ, SC/IM</content> </td> <td>LUCITA DO, JACOB Albarran</td> < td>08/07/2011</td> </tr> <tr> <td> <content ID ="proc_code_5123">35434</content> </td> <td> < content ID="proc_desc5123">TX/PRO/DX INJ NEW [...] Deion</td> <td>08/07/2011</td> </tr> <tr> <td> <content ID="proc_code_5122"> 03088</content> </td> <td> <content ID="proc_ hovc2379">THER/PROPH/DIAG IV INF ADDON</content> </td> <td> LUCITA DO, JACOB Deion</td> <td>08/08/2011</td> </tr> <tr> <td> <content ID="proc_code_5124">60864</content> </td> <td> <content ID="proc_desc5124">TX/PRO/DX INJ NEW DRUG ADDON</content> </td> <td>LUCITA DO, JACOB Deion</td> <td>08/08/2011</td> </tr> <tr> <td> < content ID="proc_code_5125">96043</content> </td> <td> <content ID="proc_desc5125">TX/PRO/DX INJ NEW DRUG [employer] DEVELOPER</content> </td> <td>LUCITA DOJACOB</td> <td>08/08/2011</td> </tr> <tr> <td> <content ID="proc_code_5119">J1200< /content> </td> <td> <content ID="proc_desc5119"> BENADRYL 50</content> </td> <td>LUCITA DO JACOB Deion</td> <td>08/08/2011</td> </tr> <tr> <td> < content ID="proc_code_5117">J1956</content> </td> <td> <content ID="proc_desc5117">LEVAQUIN IV 500MG</content> </td> <td>LUCITA DOJACOB W</td> <td>08/08/2011</td> </tr> <tr> <td> <content ID="proc_code_5118">J2930</content > </td> <td> <content ID="proc_desc5118"> METHYLPREDNISOLONE INJECTION</content> </td> <td>JACOB LANDRUM DO W</td> <td>08/08/2011</td> </tr> <tr> < td> <content ID="proc_code_5108">67169</content> </td> <td> <content ID="proc_desc5108">URINALYSIS, AUTO W/SCOPE</ content> </td> <td>ADITI GUILLEN</td> <td>2011</td> </tr> <tr> <td> <content ID="proc_ code_5109">50553</content> </td> <td> <content ID= "proc_desc5109">EMERGENCY DEPT VISIT</content> </td> <td> ADITI GUILLEN</td> <td>09/25/2011</td> </tr> <tr> <td> <content ID="proc_code_5107">A9270</content> </ td> <td> <content ID="proc_desc5107">Non-covered item or service</content> </td> <td>ADITI GUILLEN</td> < td>09/25/2011</td> </tr> <tr> <td> <content ID ="proc_code_5102">64767</content> </td> <td> < content ID="proc_desc5102">ROUTINE VENIPUNCTURE</content> </td> <td>KEVYN BALDWIN MD</td> <td>10/04/2011</td> </tr> <tr> <td> <content ID="proc_code_5104">44076</content> </td> <td> <content ID="proc_desc5104">CHEST X-RAY</ content> </td> <td>KEVYN BALDWIN MD</td> <td>2011</td> </tr> <tr> <td> <content ID="proc_ code_5098">85793</content> </td> <td> <content ID= "proc_desc5098">COMPREHEN METABOLIC PANEL</content> </td> <td> KEVYN BALDWIN MD</td> <td>10/04/2011</td> </tr> <tr> <td> <content ID="proc_code_5096">28804</content> </ td> <td> <content ID="proc_desc5096">ASSAY OF CK (CPK)</ content> </td> <td>KEVYN BALDWIN MD</td> <td>2011</td> </tr> <tr> <td> <content ID="proc_ code_5095">47242</content> </td> <td> <content ID= "proc_desc5095">CREATINE, MB FRACTION</content> </td> <td> KEVYN BALDWIN MD</td> <td>10/04/2011</td> </tr> <tr> <td> <content ID="proc_code_5097">01048</content> </ td> <td> <content ID="proc_desc5097">ASSAY OF TROPONIN, QUANT</content> </td> <td>KEVYN BALDWIN MD</td> <td >10/04/2011</td> </tr> <tr> <td> <content ID= "proc_code_5101">10396</content> </td> <td> < content ID="proc_desc5101">COMPLETE CBC W/AUTO DIFF WBC</content> </td > <td>KEVYN BALDWIN MD</td> <td>10/04/2011</td> </tr > <tr> <td> <content ID="proc_code_5099">82601</ content> </td> <td> <content ID="proc_desc5099"> PROTHROMBIN TIME</content> </td> <td>KEVYN BALDWIN MD</td> <td>10/04/2011</td> </tr> <tr> <td> < content ID="proc_code_5100">01134</content> </td> <td> <content ID="proc_desc5100">THROMBOPLASTIN TIME, PARTIAL</content> </td> <td>KEVYN BALDWIN MD</td> <td>10/04/2011</td> </tr> <tr> <td> <content ID="proc_code_5103">78794< /content> </td> <td> <content ID="proc_desc5103"> HELICOBACTER PYLORI</content> </td> <td>KEVYN BALDWIN MD</td > <td>10/04/2011</td> </tr> <tr> <td> <content ID="proc_code_5106">58833</content> </td> <td> <content ID="proc_desc5106">ELECTROCARDIOGRAM, TRACING</content> </td> <td>KEVYN BALDWIN MD</td> <td>10/04/2011</td> </tr> <tr> <td> <content ID="proc_code_5105">51026 </content> </td> <td> <content ID="proc_desc5105"> EMERGENCY DEPT VISIT</content> </td> <td>KEVYN BALDWIN MD</ td> <td>10/04/2011</td> </tr> <tr> <td> <content ID="proc_code_5094">A9270</content> </td> <td> <content ID="proc_desc5094">Non-covered item or service</content> </td> <td>KEVYN BALDWIN MD</td> <td>10/04/2011</td> </tr> <tr> <td> <content ID="proc_code_17652"> 27302</content> </td> <td> <content ID="proc_ kkxs81718">Est PatientEye Exam Comprehensive</content> </td> <td>Ramu Jorgensen W</td> <td>09/17/2017</td> </tr> < tr> <td> <content ID="proc_code_17653">[id number]</content> </td> <td> <content ID="proc_desc17653">Services Refraction</content> </td> <td>Ramu Jorgensen</td> <td>09/17/2017</td> </tr> <tr> <td> < content ID="proc_code_536241">37339</content> </td> <td> <content ID="proc_desc536241">Polysomnography;sleep Staging W 4ey</ content> </td> <td>Kwadwo Jones Enrico</td> <td>2017</td> </tr> </tbody> </table> </text> <entry> < procedure moodCode="EVN" classCode="PROC"> <templateId root= "2.16.840.1.773223.10.20.22.4.14" /> <id nullFlavor="NA" /> <code codeSystem="C4" code="28622" displayName="ROUTINE VENIPUNCTURE"> < originalText> <reference value="#proc_code_5138" /> </ originalText> </code> <text> <reference value="#proc_desc5138" /> </text> <statusCode code="completed" /> <effectiveTime value= "20110502" /> </procedure> </entry> <entry> <procedure moodCode="EVN" classCode="PROC"> <templateId root="2.16.840.1.348372.22.4.14" /> <id nullFlavor="NA" /> <code codeSystem="C4" code="72721" displayName= "COMPREHEN METABOLIC PANEL"> <originalText> <reference value="# proc_code_5140" /> </originalText> </code> <text> < reference value="#proc_desc5140" /> </text> <statusCode code= "completed" /> <effectiveTime value="20110502" /> </procedure> </entry > <entry> <procedure moodCode="EVN" classCode="PROC"> <templateId root= "08.09.840.1.267008.04.12.224.14" /> <id nullFlavor="NA" /> <code codeSystem="C4" code="99499" displayName="URINALYSIS, AUTO W/SCOPE"> < originalText> <reference value="#proc_code_5143" /> </ originalText> </code> <text> <reference value="#proc_desc5143" /> </text> <statusCode code="completed" /> <effectiveTime value= "20110502" /> </procedure> </entry> <entry> <procedure moodCode="EVN" classCode="PROC"> <templateId root="16.840.1.278138.04.12.224.14" /> <id nullFlavor="NA" /> <code codeSystem="C4" code="10768" displayName= "GLYCOSYLATED HEMOGLOBIN TEST"> <originalText> <reference value= "#proc_code_5142" /> </originalText> </code> <text> < reference value="#proc_desc5142" /> </text> <statusCode code= "completed" /> <effectiveTime value="20110502" /> </procedure> </entry > <entry> <procedure moodCode="EVN" classCode="PROC"> <templateId root= "08.09.840.1.533382.04.12.224.14" /> <id nullFlavor="NA" /> <code codeSystem="C4" code="30968" displayName="ASSAY THYROID STIM HORMONE"> < originalText> <reference value="#proc_code_5141" /> </ originalText> </code> <text> <reference value="#proc_desc5141" /> </text> <statusCode code="completed" /> <effectiveTime value= "20110502" /> </procedure> </entry> <entry> <procedure moodCode="EVN" classCode="PROC"> <templateId root="840.1.853539.04.12.224.14" /> <id nullFlavor="NA" /> <code codeSystem="C4" code="82774" displayName= "COMPLETE CBC W/AUTO DIFF WBC"> <originalText> <reference value= "#proc_code_5139" /> </originalText> </code> <text> < reference value="#proc_desc5139" /> </text> <statusCode code= "completed" /> <effectiveTime value="20110502" /> </procedure> </entry > <entry> <procedure moodCode="EVN" classCode="PROC"> <templateId root= "08.09.840.1.693964.04.12.224.14" /> <id nullFlavor="NA" /> <code codeSystem="C4" code="25101" displayName="ROUTINE VENIPUNCTURE"> < originalText> <reference value="#proc_code_5130" /> </ originalText> </code> <text> <reference value="#proc_desc5130" /> </text> <statusCode code="completed" /> <effectiveTime value= "20110726" /> </procedure> </entry> <entry> <procedure moodCode="EVN" classCode="PROC"> <templateId root="840.1.126121.104.14" /> <id nullFlavor="NA" /> <code codeSystem="C4" code="12140" displayName= "CHEST X-RAY"> <originalText> <reference value="#proc_code_5131 " /> </originalText> </code> <text> <reference value="# proc_desc5131" /> </text> <statusCode code="completed" /> < effectiveTime value="20110726" /> </procedure> </entry> <entry> < procedure moodCode="EVN" classCode="PROC"> <templateId root= "840.1.863478.104.14" /> <id nullFlavor="NA" /> <code codeSystem="C4" code="27145" displayName="COMPREHEN METABOLIC PANEL"> < originalText> <reference value="#proc_code_5129" /> </ originalText> </code> <text> <reference value="#proc_desc5129" /> </text> <statusCode code="completed" /> <effectiveTime value= "20110726" /> </procedure> </entry> <entry> <procedure moodCode="EVN" classCode="PROC"> <templateId root="840.1.885443.10.4.14" /> <id nullFlavor="NA" /> <code codeSystem="C4" code="72472" displayName= "COMPLETE CBC W/AUTO DIFF WBC"> <originalText> <reference value= "#proc_code_5128" /> </originalText> </code> <text> < reference value="#proc_desc5128" /> </text> <statusCode code= "completed" /> <effectiveTime value="53650199" /> </procedure> </entry > <entry> <procedure moodCode="EVN" classCode="PROC"> <templateId root= "840.1.104951.04.12.224.14" /> <id nullFlavor="NA" /> <code codeSystem="C4" code="51861" displayName="ELECTROCARDIOGRAM, TRACING"> < originalText> <reference value="#proc_code_5135" /> </ originalText> </code> <text> <reference value="#proc_desc5135" /> </text> <statusCode code="completed" /> <effectiveTime value= "20110726" /> </procedure> </entry> <entry> <procedure moodCode="EVN" classCode="PROC"> <templateId root="840.1.218713.04.12.224.14" /> <id nullFlavor="NA" /> <code codeSystem="C4" code="41429" displayName= "THER/PROPH/DIAG INJ, SC/IM"> <originalText> <reference value="# proc_code_5132" /> </originalText> </code> <text> < reference value="#proc_desc5132" /> </text> <statusCode code= "completed" /> <effectiveTime value="20110726" /> </procedure> </entry > <entry> <procedure moodCode="EVN" classCode="PROC"> <templateId root= "08.09.840.1.609735.10.224.14" /> <id nullFlavor="NA" /> <code codeSystem="C4" code="69688" displayName="EMERGENCY DEPT VISIT"> < originalText> <reference value="#proc_code_5133" /> </ originalText> </code> <text> <reference value="#proc_desc5133" /> </text> <statusCode code="completed" /> <effectiveTime value= "20110726" /> </procedure> </entry> <entry> <procedure moodCode="EVN" classCode="PROC"> <templateId root="08.09.840.1.323904.04.12.224.14" /> <id nullFlavor="NA" /> <code codeSystem="C4" code="J1885" displayName= "KETOROLAC TROMETHAMINE INJ"> <originalText> <reference value="# proc_code_5134" /> </originalText> </code> <text> < reference value="#proc_desc5134" /> </text> <statusCode code= "completed" /> <effectiveTime value="20110726" /> </procedure> </entry > <entry> <procedure moodCode="EVN" classCode="PROC"> <templateId root= "08.09.840.1.094685.1022.4.14" /> <id nullFlavor="NA" /> <code codeSystem="C4" code="14357" displayName="ROUTINE VENIPUNCTURE"> < originalText> <reference value="#proc_code_5112" /> </ originalText> </code> <text> <reference value="#proc_desc5112" /> </text> <statusCode code="completed" /> <effectiveTime value= "20110807" /> </procedure> </entry> <entry> <procedure moodCode="EVN" classCode="PROC"> <templateId root="08.09.840.1.868189.10.224.14" /> <id nullFlavor="NA" /> <code codeSystem="C4" code="50383" displayName= "CHEST X-RAY"> <originalText> <reference value="#proc_code_5113 " /> </originalText> </code> <text> <reference value="# proc_desc5113" /> </text> <statusCode code="completed" /> < effectiveTime value="20110807" /> </procedure> </entry> <entry> < procedure moodCode="EVN" classCode="PROC"> <templateId root= "840.1.968530.224.14" /> <id nullFlavor="NA" /> <code codeSystem="C4" code="28291" displayName="COMPREHEN METABOLIC PANEL"> < originalText> <reference value="#proc_code_5111" /> </ originalText> </code> <text> <reference value="#proc_desc5111" /> </text> <statusCode code="completed" /> <effectiveTime value= "20110807" /> </procedure> </entry> <entry> <procedure moodCode="EVN" classCode="PROC"> <templateId root="840.1.216526.22.4.14" /> <id nullFlavor="NA" /> <code codeSystem="C4" code="36473" displayName= "COMPLETE CBC W/AUTO DIFF WBC"> <originalText> <reference value= "#proc_code_5110" /> </originalText> </code> <text> < reference value="#proc_desc5110" /> </text> <statusCode code= "completed" /> <effectiveTime value="20110807" /> </procedure> </entry > <entry> <procedure moodCode="EVN" classCode="PROC"> <templateId root= "840.1.179522.224.14" /> <id nullFlavor="NA" /> <code codeSystem="C4" code="29973" displayName="THER/PROPH/DIAG IV INF, INIT"> <originalText> <reference value="#proc_code_5120" /> </ originalText> </code> <text> <reference value="#proc_desc5120" /> </text> <statusCode code="completed" /> <effectiveTime value= "20110807" /> </procedure> </entry> <entry> <procedure moodCode="EVN" classCode="PROC"> <templateId root="840.1.066852.04.12.224.14" /> <id nullFlavor="NA" /> <code codeSystem="C4" code="55196" displayName= "THER/PROPH/DIAG IV INF ADDON"> <originalText> <reference value= "#proc_code_5121" /> </originalText> </code> <text> < reference value="#proc_desc5121" /> </text> <statusCode code= "completed" /> <effectiveTime value="20110807" /> </procedure> </entry > <entry> <procedure moodCode="EVN" classCode="PROC"> <templateId root= "840.1.970995.04.12.224.14" /> <id nullFlavor="NA" /> <code codeSystem="C4" code="21865" displayName="THER/PROPH/DIAG INJ, SC/IM"> < originalText> <reference value="#proc_code_5126" /> </ originalText> </code> <text> <reference value="#proc_desc5126" /> </text> <statusCode code="completed" /> <effectiveTime value= "20110807" /> </procedure> </entry> <entry> <procedure moodCode="EVN" classCode="PROC"> <templateId root="840.1.731365.04.12.224.14" /> <id nullFlavor="NA" /> <code codeSystem="C4" code="66779" displayName= "TX/PRO/DX INJ NEW DRUG ADDON"> <originalText> <reference value= "#proc_code_5123" /> </originalText> </code> <text> < reference value="#proc_desc5123" /> </text> <statusCode code= "completed" /> <effectiveTime value="20110807" /> </procedure> </entry > <entry> <procedure moodCode="EVN" classCode="PROC"> <templateId root= "840.1.987308.04.12.22414" /> <id nullFlavor="NA" /> <code codeSystem="C4" code="G0378" displayName="HOSPITAL OBSERVATION PER HR"> < originalText> <reference value="#proc_code_5127" /> </ originalText> </code> <text> <reference value="#proc_desc5127" /> </text> <statusCode code="completed" /> <effectiveTime value= "20110807" /> </procedure> </entry> <entry> <procedure moodCode="EVN" classCode="PROC"> <templateId root="840.1.845271.04.12.2214" /> <id nullFlavor="NA" /> <code codeSystem="C4" code="J1200" displayName= "BENADRYL 50"> <originalText> <reference value="#proc_code_5116 " /> </originalText> </code> <text> <reference value="# proc_desc5116" /> </text> <statusCode code="completed" /> < effectiveTime value="20110807" /> </procedure> </entry> <entry> < procedure moodCode="EVN" classCode="PROC"> <templateId root= "840.1.619486.04.12.2214" /> <id nullFlavor="NA" /> <code codeSystem="C4" code="J1956" displayName="LEVAQUIN IV 500MG"> < originalText> <reference value="#proc_code_5114" /> </ originalText> </code> <text> <reference value="#proc_desc5114" /> </text> <statusCode code="completed" /> <effectiveTime value= "20110807" /> </procedure> </entry> <entry> <procedure moodCode="EVN" classCode="PROC"> <templateId root="840.1.002084.10..4.14" /> <id nullFlavor="NA" /> <code codeSystem="C4" code="J2930" displayName= "METHYLPREDNISOLONE INJECTION"> <originalText> <reference value= "#proc_code_5115" /> </originalText> </code> <text> < reference value="#proc_desc5115" /> </text> <statusCode code= "completed" /> <effectiveTime value="20110807" /> </procedure> </entry > <entry> <procedure moodCode="EVN" classCode="PROC"> <templateId root= "840.1.519202.04.12.22.4.14" /> <id nullFlavor="NA" /> <code codeSystem="C4" code="23717" displayName="THER/PROPH/DIAG IV INF ADDON"> <originalText> <reference value="#proc_code_5122" /> </ originalText> </code> <text> <reference value="#proc_desc5122" /> </text> <statusCode code="completed" /> <effectiveTime value= "20110808" /> </procedure> </entry> <entry> <procedure moodCode="EVN" classCode="PROC"> <templateId root="840.1.363445.10.14" /> <id nullFlavor="NA" /> <code codeSystem="C4" code="36219" displayName= "TX/PRO/DX INJ NEW DRUG ADDON"> <originalText> <reference value= "#proc_code_5124" /> </originalText> </code> <text> < reference value="#proc_desc5124" /> </text> <statusCode code= "completed" /> <effectiveTime value="20110808" /> </procedure> </entry > <entry> <procedure moodCode="EVN" classCode="PROC"> <templateId root= "216.840.1.956277.04.12.2214" /> <id nullFlavor="NA" /> <code codeSystem="C4" code="39006" displayName="TX/PRO/DX INJ NEW DRUG [employer] DEVELOPER"> < originalText> <reference value="#proc_code_5125" /> </ originalText> </code> <text> <reference value="#proc_desc5125" /> </text> <statusCode code="completed" /> <effectiveTime value= "20110808" /> </procedure> </entry> <entry> <procedure moodCode="EVN" classCode="PROC"> <templateId root="216.840.1.065679..14" /> <id nullFlavor="NA" /> <code codeSystem="C4" code="J1200" displayName= "BENADRYL 50"> <originalText> <reference value="#proc_code_5119 " /> </originalText> </code> <text> <reference value="# proc_desc5119" /> </text> <statusCode code="completed" /> < effectiveTime value="20110808" /> </procedure> </entry> <entry> < procedure moodCode="EVN" classCode="PROC"> <templateId root= "216.840.1.753743.1022.4.14" /> <id nullFlavor="NA" /> <code codeSystem="C4" code="J1956" displayName="LEVAQUIN IV 500MG"> < originalText> <reference value="#proc_code_5117" /> </ originalText> </code> <text> <reference value="#proc_desc5117" /> </text> <statusCode code="completed" /> <effectiveTime value= "20110808" /> </procedure> </entry> <entry> <procedure moodCode="EVN" classCode="PROC"> <templateId root="08.09.840.1.806637.04.12.224.14" /> <id nullFlavor="NA" /> <code codeSystem="C4" code="J2930" displayName= "METHYLPREDNISOLONE INJECTION"> <originalText> <reference value= "#proc_code_5118" /> </originalText> </code> <text> < reference value="#proc_desc5118" /> </text> <statusCode code= "completed" /> <effectiveTime value="20110808" /> </procedure> </entry > <entry> <procedure moodCode="EVN" classCode="PROC"> <templateId root= "16.840.1.463934.04.12.224.14" /> <id nullFlavor="NA" /> <code codeSystem="C4" code="88893" displayName="URINALYSIS, AUTO W/SCOPE"> < originalText> <reference value="#proc_code_5108" /> </ originalText> </code> <text> <reference value="#proc_desc5108" /> </text> <statusCode code="completed" /> <effectiveTime value= "20110925" /> </procedure> </entry> <entry> <procedure moodCode="EVN" classCode="PROC"> <templateId root="08.09.840.1.322735.104.14" /> <id nullFlavor="NA" /> <code codeSystem="C4" code="51176" displayName= "EMERGENCY DEPT VISIT"> <originalText> <reference value="#proc_ code_5109" /> </originalText> </code> <text> <reference value="#proc_desc5109" /> </text> <statusCode code="completed" /> <effectiveTime value="20110925" /> </procedure> </entry> <entry> < procedure moodCode="EVN" classCode="PROC"> <templateId root= "08.09.840.1.911954.04.12.224.14" /> <id nullFlavor="NA" /> <code codeSystem="C4" code="A9270" displayName="Non-covered item or service"> < originalText> <reference value="#proc_code_5107" /> </ originalText> </code> <text> <reference value="#proc_desc5107" /> </text> <statusCode code="completed" /> <effectiveTime value= "20110925" /> </procedure> </entry> <entry> <procedure moodCode="EVN" classCode="PROC"> <templateId root="08.09.840.1.663380.04.12.224.14" /> <id nullFlavor="NA" /> <code codeSystem="C4" code="76824" displayName= "ROUTINE VENIPUNCTURE"> <originalText> <reference value="#proc_ code_5102" /> </originalText> </code> <text> <reference value="#proc_desc5102" /> </text> <statusCode code="completed" /> <effectiveTime value="26530212" /> </procedure> </entry> <entry> < procedure moodCode="EVN" classCode="PROC"> <templateId root= "840.1.144609.04.12.22.4.14" /> <id nullFlavor="NA" /> <code codeSystem="C4" code="16350" displayName="CHEST X-RAY"> <originalText> <reference value="#proc_code_5104" /> </originalText> </code > <text> <reference value="#proc_desc5104" /> </text> < statusCode code="completed" /> <effectiveTime value="20111004" /> </ procedure> </entry> <entry> <procedure moodCode="EVN" classCode="PROC"> <templateId root="840.1.662509.1022.4.14" /> <id nullFlavor="NA " /> <code codeSystem="C4" code="78659" displayName="COMPREHEN METABOLIC PANEL"> <originalText> <reference value="#proc_code_5098" /> </originalText> </code> <text> <reference value="#proc_ cfqz3545" /> </text> <statusCode code="completed" /> < effectiveTime value="20111004" /> </procedure> </entry> <entry> < procedure moodCode="EVN" classCode="PROC"> <templateId root= "840.1.843898.102022.4.14" /> <id nullFlavor="NA" /> <code codeSystem="C4" code="12064" displayName="ASSAY OF CK (CPK)"> < originalText> <reference value="#proc_code_5096" /> </ originalText> </code> <text> <reference value="#proc_desc5096" /> </text> <statusCode code="completed" /> <effectiveTime value= "20111004" /> </procedure> </entry> <entry> <procedure moodCode="EVN" classCode="PROC"> <templateId root="840.1.969191.04.12.224.14" /> <id nullFlavor="NA" /> <code codeSystem="C4" code="39796" displayName= "CREATINE, MB FRACTION"> <originalText> <reference value="#proc_ code_5095" /> </originalText> </code> <text> <reference value="#proc_desc5095" /> </text> <statusCode code="completed" /> <effectiveTime value="20111004" /> </procedure> </entry> <entry> < procedure moodCode="EVN" classCode="PROC"> <templateId root= "840.1.561599.224.14" /> <id nullFlavor="NA" /> <code codeSystem="C4" code="06269" displayName="ASSAY OF TROPONIN, QUANT"> < originalText> <reference value="#proc_code_5097" /> </ originalText> </code> <text> <reference value="#proc_desc5097" /> </text> <statusCode code="completed" /> <effectiveTime value= "20111004" /> </procedure> </entry> <entry> <procedure moodCode="EVN" classCode="PROC"> <templateId root="840.1.804002.10224.14" /> <id nullFlavor="NA" /> <code codeSystem="C4" code="40586" displayName= "COMPLETE CBC W/AUTO DIFF WBC"> <originalText> <reference value= "#proc_code_5101" /> </originalText> </code> <text> < reference value="#proc_desc5101" /> </text> <statusCode code= "completed" /> <effectiveTime value="20111004" /> </procedure> </entry > <entry> <procedure moodCode="EVN" classCode="PROC"> <templateId root= "840.1.446842.10.224.14" /> <id nullFlavor="NA" /> <code codeSystem="C4" code="92860" displayName="PROTHROMBIN TIME"> < originalText> <reference value="#proc_code_5099" /> </ originalText> </code> <text> <reference value="#proc_desc5099" /> </text> <statusCode code="completed" /> <effectiveTime value= "20111004" /> </procedure> </entry> <entry> <procedure moodCode="EVN" classCode="PROC"> <templateId root="840.1.271136.1022.4.14" /> <id nullFlavor="NA" /> <code codeSystem="C4" code="11214" displayName= "THROMBOPLASTIN TIME, PARTIAL"> <originalText> <reference value= "#proc_code_5100" /> </originalText> </code> <text> < reference value="#proc_desc5100" /> </text> <statusCode code= "completed" /> <effectiveTime value="20111004" /> </procedure> </entry > <entry> <procedure moodCode="EVN" classCode="PROC"> <templateId root= "840.1.743286.10.22.4.14" /> <id nullFlavor="NA" /> <code codeSystem="C4" code="40917" displayName="HELICOBACTER PYLORI"> < originalText> <reference value="#proc_code_5103" /> </ originalText> </code> <text> <reference value="#proc_desc5103" /> </text> <statusCode code="completed" /> <effectiveTime value= "20111004" /> </procedure> </entry> <entry> <procedure moodCode="EVN" classCode="PROC"> <templateId root="08.09.840.1.717992.104.14" /> <id nullFlavor="NA" /> <code codeSystem="C4" code="49418" displayName= "ELECTROCARDIOGRAM, TRACING"> <originalText> <reference value="# proc_code_5106" /> </originalText> </code> <text> < reference value="#proc_desc5106" /> </text> <statusCode code= "completed" /> <effectiveTime value="20111004" /> </procedure> </entry > <entry> <procedure moodCode="EVN" classCode="PROC"> <templateId root= "840.1.754462.104.14" /> <id nullFlavor="NA" /> <code codeSystem="C4" code="28821" displayName="EMERGENCY DEPT VISIT"> < originalText> <reference value="#proc_code_5105" /> </ originalText> </code> <text> <reference value="#proc_desc5105" /> </text> <statusCode code="completed" /> <effectiveTime value= "20111004" /> </procedure> </entry> <entry> <procedure moodCode="EVN" classCode="PROC"> <templateId root="840.1.880615.04.12.224.14" /> <id nullFlavor="NA" /> <code codeSystem="C4" code="A9270" displayName= "Non-covered item or service"> <originalText> <reference value= "#proc_code_5094" /> </originalText> </code> <text> < reference value="#proc_desc5094" /> </text> <statusCode code= "completed" /> <effectiveTime value="20111004" /> </procedure> </entry > <entry> <procedure moodCode="EVN" classCode="PROC"> <templateId root= "08.09.840.1.168805.10.4.14" /> <id nullFlavor="NA" /> <code codeSystem="C4" code="21214" displayName="Est PatientEye Exam Comprehensive" > <originalText> <reference value="#proc_code_17652" /> < /originalText> </code> <text> <reference value="#proc_desc17652 " /> </text> <statusCode code="completed" /> <effectiveTime value ="20170917" /> </procedure> </entry> <entry> <procedure moodCode="EVN" classCode="PROC"> <templateId root="08.09.840.1.634714.10.4.14" /> <id nullFlavor="NA" /> <code codeSystem="C4" code="50318" displayName= "ServicesRefraction"> <originalText> <reference value="#proc_ code_17653" /> </originalText> </code> <text> < reference value="#proc_desc17653" /> </text> <statusCode code= "completed" /> <effectiveTime value="20170917" /> </procedure> </entry > <entry> <procedure moodCode="EVN" classCode="PROC"> <templateId root= "08.09.840.1.746429.104.14" /> <id nullFlavor="NA" /> <code codeSystem="CPT" code="96796" displayName="Polysomnography;sleep Staging W 4ey" > <originalText> <reference value="#proc_code_536241" /> </originalText> </code> <text> <reference value="#proc_ mrhb577110" /> </text> <statusCode code="completed" /> < effectiveTime value="41125403" /> </procedure> </entry></section> Results Test Result Range [...] GLUCOSE NEGATIVE Bilirubin NEGATIVE Ketones NEGATIVE Sp [place] >=1.030 Ph 6.0 Protein NEGATIVE Urobilinogen 0.2 [...] GLUCOSE NEGATIVE Bilirubin NEGATIVE Ketones NEGATIVE Sp [place] 1.020 Ph 5.5 Protein NEGATIVE Urobilinogen 0.2 [...] GLUCOSE NEGATIVE Bilirubin NEGATIVE Ketones NEGATIVE Sp [place] >=1.030 Ph 6.0 Protein NEGATIVE Urobilinogen 0.2 Nitrite NEGATIVE Blood NEGATIVE Leukocytes NEGATIVE Microscopic Not Indicat URINALYSIS - 08/20/16 10:24 URINALYSIS LAB Color YELLOW Character CLOUDY GLUCOSE NEGATIVE Bilirubin NEGATIVE Ketones NEGATIVE Sp [place] 1.025 Ph 6.0 Protein NEGATIVE Urobilinogen 0.2 [...] GLUCOSE NEGATIVE Bilirubin NEGATIVE Ketones NEGATIVE Sp [place] <=1.005 Ph 6.0 Protein NEGATIVE Urobilinogen 0.2 [...] GLUCOSE NEGATIVE Bilirubin NEGATIVE Ketones NEGATIVE Sp [place] >=1.030 Ph 6.0 Protein 1+ Urobilinogen 0.2 Nitrite NEGATIVE Blood 1+ Leukocytes 2+ Microscopic See Below Urine Volume 12 ml Specimen Type SPUN Bacteria 1+ (10-50) WBC/ 10-25 RBC/ 5-10 Squa Epi Cell 0-2 Culture To Follow URINALYSIS - 03/07/17 10:35 URINALYSIS NRG Color YELLOW NRG Character CLEAR NRG Glucose NEGATIVE NRG Bilirubin NEGATIVE NRG Ketones NEGATIVE NRG Sp [place] >=1.030 NRG Ph 6.0 NRG Protein 1+ [...] INDICATED NRG * Chem-14 - 03/26/17 15:13 [id number] NRG ALK PHOS 59 IU/L 32 - [...] 07/07/17 14:18 INFLUENZA A & B PCR, [facility] INFLUENZA A POSITIVE NORMAL: NEGATIVE INFLUENZA [...] GLUCOSE NEGATIVE Bilirubin NEGATIVE Ketones NEGATIVE Sp [place] 1.008 Ph 6.0 Protein NEGATIVE Urobilinogen NEGATIVE [...] GLUCOSE NEGATIVE Bilirubin NEGATIVE Ketones NEGATIVE Sp [place] 1.011 Ph 5.0 Protein NEGATIVE Urobilinogen NEGATIVE [...] GLUCOSE NEGATIVE Bilirubin NEGATIVE Ketones NEGATIVE Sp [place] 1.016 Ph 6.0 Protein NEGATIVE Urobilinogen NEGATIVE [...] Status Pt. Type Provider Facility Loc./Unit Complaint [id number] 08/05/2013 10:11:00 08/05/2013 23:59:59 CLS Outpatient [facility] OTHER [id number] 10/04/2011 18:56:00 10/04/2011 23:59:59 CLS Emergency JACOB LANDRUM DO [id number] 09/25/2011 21:27:00 09/25/2011 23:59:59 CLS Emergency MINDY ROSARIO, ADITI Albarran [id number] 08/07/2011 15:10:00 08/07/2011 23:59:59 CLS Outpatient JACOB LANDRUM DO [id number] 07/26/2011 20:30:00 07/26/2011 23:59:59 CLS Emergency ARNOLDO WINSTON MD [id number] 05/02/2011 10:52:00 05/02/2011 23:59:59 CLS Outpatient JACOB LANDRUM DO [id number] 12/12/2004 00:00:00 12/12/2004 23:59:59 CLS Outpatient [facility] [place] GISELL JEFFREY KSWebIAndria 12/13/2017 16:14:12 ACT Document Registration [id number] 07/10/2016 00:00:00 07/10/2016 23:59:59 CLS Outpatient Ramu Jorgensen [facility] O [id number] 01/15/2018 15:42:00 01/15/2018 17:58:00 DIS Emergency NORBERTO HUDSON [id number] 01/14/2018 20:20:00 01/14/2018 21:33:00 DIS Emergency SATHISH ARENAS [id number] 01/10/2018 10:55:00 01/10/2018 23:59:59 CLS Outpatient CISCO PRADO [id number] 12/29/2017 22:20:00 12/29/2017 23:28:00 DIS Emergency SATHISH ARENAS [id number] 12/19/2017 16:24:00 12/19/2017 23:59:59 CLS Outpatient CISCO PRADO [id number] 10/21/2017 10:29:00 12/05/2017 09:18:00 DIS Outpatient Laine MERLOS [id number] 11/24/2017 13:25:00 11/24/2017 14:37:00 DIS Emergency NORBERTO HUDSON [id number] 10/10/2017 14:10:00 10/10/2017 14:10:00 DIS Outpatient SLBIANKA MENDEZ [id number] 08/19/2017 08:16:00 08/19/2017 08:16:00 DIS Outpatient SLIEF, BIANKA [id number] 08/08/2017 18:54:00 08/08/2017 20:28:00 DIS Emergency CECILIO LOVE [id number] 07/19/2017 13:01:00 07/19/2017 23:59:59 CLS Outpatient DEMETRI SWEENEY [id number] 07/07/2017 14:05:00 07/07/2017 15:03:00 DIS Emergency NORBERTO HUDSON [id number] 07/04/2017 14:14:00 07/04/2017 23:59:59 CLS Outpatient Laine MERLOS [id number] 06/27/2017 12:41:00 06/27/2017 15:17:00 DIS Emergency DEEPASATHISH PEREZ [id number] 06/18/2017 13:10:00 06/18/2017 13:43:00 DIS Emergency SATHISH ARENAS [id number] 05/06/2017 17:10:00 05/06/2017 17:50:00 DIS Emergency KEDAR CASTILLO [id number] 03/26/2017 14:59:00 03/26/2017 23:59:59 CLS Outpatient CISCO PRADO [id number] 03/07/2017 10:35:00 03/07/2017 23:59:59 CLS Outpatient CISCO PRADO [id number] 02/15/2017 17:23:00 02/15/2017 18:25:00 DIS Emergency KEDAR CASTILLO [facility] [id number] 12/27/2016 09:59:00 12/30/2016 14:25:00 DIS Inpatient CISCO PRADO [facility] [id number] 11/15/2016 14:51:00 11/15/2016 14:51:00 DIS Outpatient MITA LESLIE [id number] 10/15/2016 16:04:00 10/15/2016 23:59:59 CLS Outpatient SLIEFBIANKA [id number] 10/09/2016 08:56:00 10/09/2016 08:56:00 DIS Outpatient CISCO PRADO [id number] 08/14/2016 09:40:00 09/18/2016 14:49:00 DIS Outpatient TORRES PRADOIC KIP [id number] 08/26/2016 14:56:00 08/26/2016 16:43:00 DIS Emergency SATHISH ARENAS [id number] 08/24/2016 15:12:00 08/24/2016 15:35:00 DIS Emergency SATHISH ARENAS [id number] 08/20/2016 10:24:00 08/20/2016 23:59:59 CLS Outpatient SLIEFBIANKA [id number] 07/25/2016 23:54:00 07/26/2016 01:25:00 DIS Emergency NORBERTO HUDSON [id number] 07/06/2016 10:03:00 07/06/2016 10:46:00 DIS Emergency CECILIO LOVE [id number] 06/25/2016 10:06:00 06/25/2016 23:59:59 CLS Outpatient Deion WRIGHT [id number] 06/08/2016 12:04:00 06/08/2016 23:59:59 CLS Outpatient ALBERT FRANCOIS [id number] 05/25/2016 16:37:00 05/25/2016 18:18:00 DIS Emergency SHAE SEO [id number] 05/05/2016 15:26:00 05/05/2016 17:24:00 DIS Emergency NORBERTO HUDSON [id number] 01/26/2016 15:12:00 01/26/2016 17:07:00 DIS Emergency NORBERTO HUDSON [id number] 01/13/2016 10:31:00 01/13/2016 23:59:59 CLS Outpatient ALBERT FRANCOIS [id number] 12/01/2015 21:43:00 12/01/2015 22:39:00 DIS Emergency NORBERTO HUDSON [id number] 01/28/2018 10:53:00 Document Registration [id number] 12/04/2017 16:03:53 Document Registration [id number] 01/28/2018 10:53:00 Document Registration [id number] 01/15/2018 15:42:00 Document Registration [id number] 01/14/2018 20:20:00 Document Registration [id number] 01/10/2018 10:55:00 Document Registration [id number] 12/29/2017 22:20:00 Document Registration [id number] 12/19/2017 16:24:00 Document Registration [id number] 11/24/2017 13:25:00 Document Registration [id number] 08/08/2017 18:54:00 Document Registration [id number] 07/19/2017 13:01:00 Document Registration [id number] 07/07/2017 14:05:00 Document Registration [id number] 06/27/2017 12:41:00 Document Registration [id number] 03/26/2017 14:59:00 Document Registration [id number] 03/07/2017 10:35:00 Document Registration [id number] 12/27/2016 08:17:00 Document Registration [id number] 11/15/2016 14:51:00 Document Registration [id number] 08/26/2016 14:56:00 Document Registration [id number] 08/20/2016 10:24:00 Document Registration [id number] 07/25/2016 23:54:00 Document Registration [id number] 05/25/2016 16:37:00 Document Registration [id number] 05/05/2016 15:26:00 Document Registration [id number] 01/26/2016 15:12:00 Document Registration [id number] 01/13/2016 10:31:00 Document Registration [id number] 01/16/2018 14:45:00 01/16/2018 23:59:59 CLS Outpatient [facility] [id number] 12/19/2017 14:30:00 Document Registration [id number] 07/19/2017 12:30:00 Document Registration [id number] 03/26/2017 15:15:00 Document Registration [id number] 03/26/2017 09:59:00 Document Registration [id number] 03/07/2017 10:35:00 Document Registration [id number] 11/18/2017 20:28:00 11/22/2017 12:47:45 DIS Outpatient KWADWO JONES [id number]
--- NOTE | 2018-02-04 22:03 | ED Cardiac General ---
History of Present Illness General Chief Complaint: Respiratory Problems Stated Complaint: CHEST PAIN, RENAL INSUFFCIENCY, HYPOMAGNESEMIA Nursing Triage Note: pt brought in by ems with complaint of sob. pt is visiting her sister and did not bring home oxygen with her. Source: patient (VERY LIMITED HISTORIAN AND SPEECH VERY DIFFICULT TO UNDERSTAND --APPEARS TO BE M.R. AND MALE S.O AND OTHER FEMALE IN ROOM ALL APPEAR TO HAVE LIMITED MENTAL CAPACITY), EMS Exam Limitations: language barrier History of Present Illness Date Seen by Provider: Feb 04, 2018 Time Seen by Provider: 19:52 Initial Comments PT ARRIVES VIA EMS C/O CHEST PAIN AND SHORTNESS OF BREATH--BEGAN AROUND 1800 WHILE WALKING INTO THE [employer] TO EAT PT STATES HER LEFT ARM DIAZ AND GETS TINGLY, THEN HER CHEST HURTS, THEN SHE CAN 'T BREATHE PT TOOK HOME NTG X 1 WITHOUT RELIEF EMS GAVE ASPIRIN AND NTG X 1 WITHOUT RELIEF, BUT PAIN WENT AWAY WHEN PT WAS PLACED ON O2 PT HAS CHRONIC BRONCHITIS AND COPD AND IS SUPPOSED TO WEAR HOME O2, AT HS AND WITH ACTIVITY--STATES SHE IS SUPPOSED TO WEAR IT IF SHE GOES OUTSIDE THE HOUSE PT IS HERE VISITING FROM [place], [place] SINCE Saturday01/30/18 AND DID NOT BRING HER OXYGEN WITH HER NO COUGH NO FEVER NO SWELLING IN LEGS/ FEET OR PAIN IN CALVES PT HAS HAD THESE SAME SYMPTOMS BEFORE, AND TAKES NTG PRN "FOR CHEST HURTS AND ARMS DIAZ AND TINGS" PT STATES SHE HAS HEART PROBLEMS "BECAUSE HER HEART DOESN'T GET ENOUGH OXYGEN", BUT STATES SHE HAS NEVER HAD A STRESS TEST, CARDIAC CATH OR ANY TYPE OF CARDIAC TESTS. HAS CHRONIC DYSPNEA ON EXERTION PT SMOKES "1 CIGARETTE A DAY"--ROOM REEKS OF CIGARETTES WHEN OTHER FAMILY MEMBERS ARRIVE IN ROOM PCP: DR. CISCO FRANKLIN, [place], [place]. Allergies and Home Medications Allergies Coded Allergies: Penicillins (Verified Allergy, Unknown, 02/04/18) Patient Home Medication List Home Medication List Reviewed: Yes Review of Systems Constitutional: no symptoms reported; No chills, No diaphoresis, No dizziness, No fever EENTM: No Symptoms Reported Respiratory: See HPI; Denies Cough; Shortness of Air, SOA With Exertion Cardiovascular: See HPI, Chest Pain; Denies Edema, Denies Lightheadedness, Denies Syncope Gastrointestinal: No Symptoms Reported; Denies Abdominal Pain, Denies Nausea, Denies Vomiting Genitourinary: No Symptoms Reported Musculoskeletal: see HPI (LEFT ARM BURINING AND TINGLING) Skin: no symptoms reported Psychiatric/Neurological: See HPI, Paresthesia, Tingling Endocrine: No Symptoms Reported Hematologic/Lymphatic: No Symptoms Reported Past Mefdfch-Vdcmid-Yfqksk Hx Patient Social History Alcohol Use: Denies Use Recreational Drug Use: No Smoking Status: Current Everyday Smoker (1 CIGARETTE A DAY) Type Used: Cigarettes Recent Foreign Travel: No Contact w/Someone Who Travel: No Recent Infectious Disease Expo: No Recent Hopitalizations: No Immunizations Up To Date Tetanus Booster (TDap): Unknown PED Vaccines UTD: Yes Seasonal Allergies Seasonal Allergies: Yes Past Medical History Surgeries: Yes (LEFT ANKLE FX/ORIF--PT STATES SHE HAD RIGHT ANKLE SURGERY ALSO , BUT NO VISIBLE SCARS NOTED---??CLOSED REDUCTION??; MULTIPLE BLADDER SUSPENSIONS) Bladder Surgery, Hysterectomy, Orthopedic Respiratory: Yes (O2 AT HS AND WITH ACTIVITY; CHRONIC DYSPNEA ON EXERTION) Chronic Bronchitis, Sleep Apnea, COPD Currently Using CPAP: Yes Cardiac: Yes Hypertension Neurological: Yes Developmental Disorder Genitourinary: Yes (INCONTINENCE) Kidney Infection, Bladder Infection Gastrointestinal: Yes Gastroesophageal Reflux, Chronic Constipation Musculoskeletal: Yes (BILATERAL ANKLE FRACTURES--STATES SURGERY ON BOTH, BUT ONLY HAS SCAR ON LEFT ANKLE--? CLOSED REDUCTION ON RIGHT ?/) Osteoporosis, Arthritis, Fractures Endocrine: Yes Hypothyroidsim HEENT: Yes (SPEECH IMPEDIMENT) Cancer: No Psychosocial: Yes (? MR ?) Anxiety, Depression Integumentary: No Blood Disorders: No Physical Exam Vital Signs Vital Signs - First Documented 02/04/18 19:57 Temp 96.7 Pulse 66 Resp 16 B/P (MAP) 183/85 (117) Pulse Ox 96 O2 Delivery Room Air O2 Flow Rate 2.00 Capillary Refill : Less Than 3 Seconds Height, Weight, BMI Height: 5'6.00" Weight: 207lbs. oz. 93.321126zm; BMI Method:Stated General Appearance: No Apparent Distress, Obese HEENT: PERRL/EOMI Neck: Normal Inspection Respiratory: Chest Non Tender, Normal Breath Sounds, No Accessory Muscle Use, No Respiratory Distress Cardiovascular: Regular Rate, Rhythm, No Edema, No JVD, No Murmur, Normal Peripheral Pulses Gastrointestinal: Normal Bowel Sounds, No Organomegaly, No Pulsatile Mass, Non Tender, Soft Extremity: Normal Capillary Refill, Normal Inspection, Normal Range of Motion, Non Tender, No Calf Tenderness, No Pedal Edema Neurologic/Psychiatric: Alert, Oriented x3, No Motor/Sensory Deficits, Normal Mood/Affect, 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 II-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 Norm as Tested Skin: Normal Color, Warm/Dry; No Rash Progress/Results/Core Measures Results/Orders Lab Results Laboratory Tests Test 02/04/18 20:00 Range/Units White Blood Count 3.2 L 4.3-11.0 10^3/uL Red Blood Count 3.62 L 4.35-5.85 10^6/uL Hemoglobin 10.3 L 11.5-16.0 G/DL Hematocrit 31 L 35-52 % Mean Corpuscular Volume 85 80-99 FL Mean Corpuscular Hemoglobin 29 25-34 PG Mean Corpuscular Hemoglobin Concent 33 32-36 G/DL Red Cell Distribution Width 14.0 10.0-14.5 % Platelet Count 113 L 130-400 10^3/uL Mean Platelet Volume 12.5 H 7.4-10.4 FL Neutrophils (%) (Auto) 56 42-75 % Lymphocytes (%) (Auto) 29 12-44 % Monocytes (%) (Auto) 8 0-12 % Eosinophils (%) (Auto) 6 0-10 % Basophils (%) (Auto) 1 0-10 % Neutrophils # (Auto) 1.8 1.8-7.8 X 10^3 Lymphocytes # (Auto) 0.9 L 1.0-4.0 X 10^3 Monocytes # (Auto) 0.2 0.0-1.0 X 10^3 Eosinophils # (Auto) 0.2 0.0-0.3 10^3/uL Basophils # (Auto) 0.0 0.0-0.1 10^3/uL Prothrombin Time 12.3 12.2-14.7 SEC INR Comment 0.9 0.8-1.4 Activated Partial Thromboplast Time 26 24-35 SEC Sodium Level 139 135-145 MMOL/L Potassium Level 3.9 3.6-5.0 MMOL/L Chloride Level 105 98-107 MMOL/L Carbon Dioxide Level 23 21-32 MMOL/L Anion Gap 11 5-14 MMOL/L Blood Urea Nitrogen 33 H 7-18 MG/DL Creatinine 1.61 H 0.60-1.30 MG/DL Estimat Glomerular Filtration Rate 32 BUN/Creatinine Ratio 20 Glucose Level 108 H 70-105 MG/DL Calcium Level 8.6 8.5-10.1 MG/DL Corrected Calcium 8.4 L 8.5-10.1 MG/DL Magnesium Level 1.7 L 1.8-2.4 MG/DL Total Bilirubin 0.2 0.1-1.0 MG/DL Aspartate Amino Transf (AST/SGOT) 20 5-34 U/L Alanine Aminotransferase (ALT/SGPT) 32 0-55 U/L Alkaline Phosphatase 47 40-136 U/L Total Creatine Kinase 46 29-168 U/L Creatine Kinase MB 1.0 <6.6 NG/ML Troponin I < 0.30 <0.30 NG/ML B-Type Natriuretic Peptide 144.1 H <100.0 PG/ML Total Protein 6.5 6.4-8.2 GM/DL Albumin 4.2 3.2-4.5 GM/DL Amylase Level 61 25-125 U/L Lipase 29 8-78 U/L My Orders Orders - GUILLERMO GRANDE DO Saline Lock/Iv-Start (02/04/18 20:05) Ekg Tracing (02/04/18 20:05) O2 (02/04/18 20:05) Monitor-Rhythm Ecg Trace Only (02/04/18 20:05) Amylase (02/04/18 20:05) BNP (02/04/18 20:05) Cbc With Automated Diff (02/04/18 20:05) Comprehensive Metabolic Panel (02/04/18 20:05) Creatine Kinase (02/04/18 20:05) Creatine Kinase Mb (02/04/18 20:05) Lipase (02/04/18 20:05) Magnesium (02/04/18 20:05) Protime With Inr (02/04/18 20:05) Partial Thromboplastin Time (02/04/18 20:05) Troponin I (02/04/18 20:05) Chest 1 View, Ap/Pa Only (02/04/18 20:05) Medications Given in ED Current Medications Medications Dose Ordered Sig/Tim Route Start Time Stop Time Status Last Admin Dose Admin Magnesium Sulfate/ Dextrose 100 ml @ 100 mls/hr ONCE ONCE IV 02/04/18 21:00 02/04/18 21:59 DC 02/04/18 21:18 100 MLS/HR Vital Signs/I&O 02/04/18 02/04/18 19:57 19:57 Temp 96.7 Pulse 66 Resp 16 B/P (MAP) 183/85 (117) Pulse Ox 96 99 O2 Delivery Room Air Nasal Cannula O2 Flow Rate 2.00 Blood Pressure Mean: 117 Progress Progress Note : Progress Note NO COMPLAINTS OF ANY KIND DURING ER STAY Initial ECG Impression Date: Feb 04, 2018 Initial ECG Impression Time: 20:03 Initial ECG Rate: 68 Initial ECG Rhythm: Normal Sinus Initial ECG Impression: Normal Initial ECG Comparisson: No Previous ECG Available Departure Communication (Admissions) 2018--SPOKE WITH MOISE BUSTAMANTE PT FOR ADMIT 2122--SPOKE WITH PT'S PCP IN [place], [place]--DR CISCO FRANKLIN. HE STATES TO HIS KNOWLEDGE, PT HAS NEVER HAD A STRESS TEST OR ANY CARDIAC CATH, ETC. --HAD BEEN PRESCRIBED NTG PRN PRIOR TO HIS CARE OF HER. STATES IT WAS PRESCRIBED FOR PRESUMED ANGINA. [phone]. HE IS AVAILABLE FOR ANY QUESTIONS. HE REPORTS THAT PT HAS MULTIPLE COMMUNITY SERVICES THAT ASSIST IN HER CARE AT HOME. Impression Primary Impression: Chest pain Additional Impressions: Dyspnea on exertion Renal insufficiency Hypomagnesemia Mild anemia Disposition: ADMITTED INPATIENT Condition: Improved Admissions Decision to Admit Reason: Admit from ER (General) Decision to Admit/Date: Feb 04, 2018 Time/Decision to Admit Time: 20:20 Departure-Patient Inst. Referrals: NO,LOCAL PHYSICIAN (PCP) Primary Care Physician GUILLERMO GRANDE DO Feb 04, 2018 22:03
[2018-02-04 22:27] VITALS: BP 140/63
[2018-02-04] MEDS ORDERED: 1/2 NS IV SOLUTION 1,000 ML IV ONE (23:25)
[2018-02-04] MEDS ORDERED: 1/2 NS IV SOLUTION 1,000 ML IV SCH (23:45)
[2018-02-04] MEDS ORDERED: morphine INJ 10 MG/ML 1ML (SYR OR VIAL) IV SCH (23:45)
[2018-02-04] MEDS ORDERED: NITROGLYCERIN 0.4 MG SL TABS BTL 25'S SL PRN (23:45)
[2018-02-05] VITALS (7 sets, daily range): BP systolic 135–167; BP diastolic 61–80
[2018-02-05 03:44] LABS: BASOPHILS % (AUTO) 0 % (0-10); EOSINOPHILS # (AUTO) 0.2 10^3/uL (0.0-0.3); EOSINOPHILS % (AUTO) 6 % (0-10); HEMATOCRIT 31 % (35-52); HEMOGLOBIN 10.2 G/DL (11.5-16.0); LYMPHOCYTES # (AUTO) 0.7 X 10^3 (1.0-4.0); LYMPHOCYTES % (AUTO) 19 % (12-44); MEAN CORPUSCULAR HEMOGLOBIN 28 PG (25-34); MEAN CORPUSCULAR HGB CONC 33 G/DL (32-36); MEAN CORPUSCULAR VOLUME 85 FL (80-99); MEAN PLATELET VOLUME 12.3 FL (7.4-10.4); MONOCYTES # (AUTO) 0.3 X 10^3 (0.0-1.0); MONOCYTES % (AUTO) 8 % (0-12); NEUTROPHILS # (AUTO) 2.3 X 10^3 (1.8-7.8); NEUTROPHILS % (AUTO) 67 % (42-75); PLATELET COUNT 110 10^3/uL (130-400); RED BLOOD COUNT 3.69 10^6/uL (4.35-5.85); RED CELL DISTRIBUTION WIDTH 14.3 % (10.0-14.5); WHITE BLOOD COUNT 3.5 10^3/uL (4.3-11.0)
[2018-02-05 04:04] LABS: ALANINE AMINOTRANSFERASE 31 U/L (0-55); ALKALINE PHOSPHATASE 47 U/L (40-136); BILIRUBIN,TOTAL 0.2 MG/DL (0.1-1.0); BUN/CREATININE RATIO 24; CALCIUM 8.6 MG/DL (8.5-10.1); CARBON DIOXIDE 23 MMOL/L (21-32); CHLORIDE 105 MMOL/L (98-107); CHOLESTEROL 195 MG/DL (< 200); CREATININE SERUM 1.19 MG/DL (0.60-1.30); GFR ESTIMATED 45; GLUCOSE 125 MG/DL (70-105); HDL CHOLESTEROL 41 MG/DL (40-60); MAGNESIUM 2.3 MG/DL (1.8-2.4); POTASSIUM 4.3 MMOL/L (3.6-5.0); SODIUM 140 MMOL/L (135-145); TOTAL PROTEIN 6.3 GM/DL (6.4-8.2); TRIGLYCERIDES 163 MG/DL (<150); VLDL CHOLESTEROL 33 MG/DL (5-40)
[2018-02-05 04:16] LABS: CARDIAC PROFILE 2 < 0.30 NG/ML (<0.30)
[2018-02-05] MEDS ORDERED: morphine INJ 4 MG/ML 1 ML (VIAL/SYRINGE) IVP PRN (04:45)
[2018-02-05] MEDS ORDERED: ASPIRIN E.C. 81 MG (ECOTRIN) TAB PO SCH (09:00)
--- NOTE | 2018-02-05 09:54 | History & Physical-Hospitalist ---
History of Present Illness Date Seen 02/05/18 Attending Physician Feliberto Ortiz MD PCP No,Local Physician Referring Physician Date of Admission Feb 04, 2018 at 21:07 Home Medications & Allergies Home Medications Reviewed patient Home Medication Reconciliation performed by pharmacy medication reconciliations cath lab radiology technician and/or nursing. Patients Allergies have been reviewed. Allergies Allergies Coded Allergies Penicillins (Verified Allergy, Unknown, 02/04/18) Past Hwozswy-Kmtduc-Kxblis Hx Patient Social History Alcohol Use: Denies Use Recreational Drug Use: No Smoking Status: Former Smoker Type Used: Cigarettes Physical Abuse Screen: No Sexual Abuse: No Recent Foreign Travel: No Contact w/other who traveled: No Recent Hopitalizations: No Recent Infectious Disease Expo: No Immunizations Up To Date Tetanus Booster (TDap): Unknown Pediatric: Yes Date of Pneumonia Vaccine: Feb 04, 2017 Seasonal Allergies Seasonal Allergies: Yes Past Medical History Surgeries: Bladder Surgery, Hysterectomy, Orthopedic Currently Using CPAP: Yes Cardiac: Hypertension Neurological: Developmental Disorder Genitourinary: Kidney Infection, Bladder Infection Gastrointestinal: Gastroesophageal Reflux, Chronic Constipation Musculoskeletal: Osteoporosis, Arthritis, Fractures Endocrine: Hypothyroidsim Psychosocial: Anxiety, Depression History of Blood Disorders: No Physical Exam Physical Exam Vital Signs Vital Signs - First Documented 02/04/18 19:57 Temp 96.7 Pulse 66 Resp 16 B/P (MAP) 183/85 (117) Pulse Ox 96 O2 Delivery Room Air O2 Flow Rate 2.00 Capillary Refill : Less Than 3 Seconds Height, Weight, BMI Height: 5'6.00" Weight: 209lbs. 0.0oz. 94.036150wz; 33.9 BMI Method:Stated Results Results/Procedures Labs Laboratory Tests 02/04/18 20:00 02/05/18 03:10 Patient resulted labs reviewed. Clinical Quality Measures DVT/VTE Risk/Contraindication: Risk Factor Score Per Nursin RFS Level Per Nursing on Admit: 4+=Very High SHERRY CARRASCO DO Feb 05, 2018 09:54
[2018-02-05] MEDS ORDERED: LIDOCAINE 1% INJ 20 ML 20 ML VIAL ONE (10:51)
[2018-02-05] MEDS ORDERED: MIDAZOLAM 5 MG/5 ML (VERSED) VIAL ONE (10:51)
[2018-02-05] MEDS ORDERED: NS IV 1000 ML 1,000 ML ONE (10:52)
[2018-02-05] MEDS ORDERED: fentaNYL INJECTION 100 MCG/2 ML AMP ONE (10:52)
[2018-02-05] MEDS ORDERED: HEParin (CATH LAB) 2,000 ML IV ONE (10:52)
[2018-02-05] MEDS ORDERED: VERAPAMIL 5 MG/2 ML (CALAN) VIAL IV ONE (10:52)
[2018-02-05] MEDS ORDERED: NITRO DRIP 25000 MCG/D5W 250 ML IV ONE (10:52)
[2018-02-05] MEDS ORDERED: HEParin 1000 UNIT/ML (10ML VIAL) FOR BOLUS ONE (10:52)
[2018-02-05] MEDS ORDERED: NITR0.4T42 SL (10:55)
[2018-02-05] MEDS ORDERED: ESOM40CA52 PO (10:55)
[2018-02-05] MEDS ORDERED: ALEN5TAB3 PO (10:55)
[2018-02-05] MEDS ORDERED: LOSA50TA36 PO (10:55)
[2018-02-05] MEDS ORDERED: BUDE10.2 INH (10:55)
[2018-02-05] MEDS ORDERED: METO50TA15 PO (10:55)
[2018-02-05] MEDS ORDERED: ALBU18HF2 INH (10:55)
[2018-02-05] MEDS ORDERED: LISI1TAB8 PO (10:55)
[2018-02-05] MEDS ORDERED: CITA40TA11 PO (10:55)
[2018-02-05] MEDS ORDERED: LINA145C PO (10:55)
[2018-02-05] MEDS ORDERED: HYDR25TA4 PO (10:55)
[2018-02-05] MEDS ORDERED: TRAZ-190 PO (10:55)
--- NOTE | 2018-02-05 10:55 | Consultation-Cardiology ---
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 Given to the emergency room by ambulance, feeling better today. Denied any palpitation, syncope or near syncopal episodes. Patient is leaving town next week. Concern about her condition. I discussed with her and her family regarding the management plan recommended possible stress test versus cardiac catheterization, family requested to proceed with cardiac catheterization. Home Medications & Allergies Allergies: Coded Allergies: Penicillins (Verified Allergy, Unknown, 02/04/18) Home Medication List Reviewed: Yes UON-Clskba-Jrtiyh Hx Patient Social History Marital Status: single Alcohol Use: Denies Use Recreational Drug Use: No Smoking Status: Former Smoker Type Used: Cigarettes Recent Foreign Travel: No Recent Infectious Disease Expo: No Recent Hopitalizations: No Physical Abuse Screen: No Sexual Abuse: No Immunizations Up To Date Tetanus Booster (TDap): Unknown Date of Pneumonia Vaccine: Feb 04, 2017 Past Medical History Noncontributory to her current condition Family Medical History Family Medical Hx Family history of heart disease Constitutional: no symptoms reported, see HPI EENTM: see HPI, no symptoms reported Respiratory: see HPI; No cough; dyspnea on exertion; No hemoptysis, No orthopnea, No phlegm, No short of breath, No stridor, No wheezing, No other Cardiovascular: see HPI, chest pain; No edema, No Hx of Intervention, No palpitations, No syncope, No vascular heart diseas, No other Gastrointestinal: no symptoms reported, see HPI Genitourinary: no symptoms reported, see HPI Musculoskeletal: no symptoms reported, see HPI Skin: no symptoms reported, see HPI Psychiatric/Neurological: No Symptoms Reported, See HPI Reviewed Test Results Reviewed Test Results Lab Laboratory Tests Test 02/04/18 20:00 02/05/18 03:10 Range/Units White Blood Count 3.2 L 3.5 L 4.3-11.0 10^3/uL Red Blood Count 3.62 L 3.69 L 4.35-5.85 10^6/uL Hemoglobin 10.3 L 10.2 L 11.5-16.0 G/DL Hematocrit 31 L 31 L 35-52 % Mean Corpuscular Volume 85 85 80-99 FL Mean Corpuscular Hemoglobin 29 28 25-34 PG Mean Corpuscular Hemoglobin Concent 33 33 32-36 G/DL Red Cell Distribution Width 14.0 14.3 10.0-14.5 % Platelet Count 113 L 110 L 130-400 10^3/uL Mean Platelet Volume 12.5 H 12.3 H 7.4-10.4 FL Neutrophils (%) (Auto) 56 67 42-75 % Lymphocytes (%) (Auto) 29 19 12-44 % Monocytes (%) (Auto) 8 8 0-12 % Eosinophils (%) (Auto) 6 6 0-10 % Basophils (%) (Auto) 1 0 0-10 % Neutrophils # (Auto) 1.8 2.3 1.8-7.8 X 10^3 Lymphocytes # (Auto) 0.9 L 0.7 L 1.0-4.0 X 10^3 Monocytes # (Auto) 0.2 0.3 0.0-1.0 X 10^3 Eosinophils # (Auto) 0.2 0.2 0.0-0.3 10^3/uL Basophils # (Auto) 0.0 0.0 0.0-0.1 10^3/uL Prothrombin Time 12.3 12.2-14.7 SEC INR Comment 0.9 0.8-1.4 Activated Partial Thromboplast Time 26 24-35 SEC Sodium Level 139 140 135-145 MMOL/L Potassium Level 3.9 4.3 3.6-5.0 MMOL/L Chloride Level 105 105 98-107 MMOL/L Carbon Dioxide Level 23 23 21-32 MMOL/L Anion Gap 11 12 5-14 MMOL/L Blood Urea Nitrogen 33 H 29 H 7-18 MG/DL Creatinine 1.61 H 1.19 0.60-1.30 MG/DL Estimat Glomerular Filtration Rate 32 45 BUN/Creatinine Ratio 20 24 Glucose Level 108 H 125 H 70-105 MG/DL Calcium Level 8.6 8.6 8.5-10.1 MG/DL Corrected Calcium 8.4 L 8.6 8.5-10.1 MG/DL Magnesium Level 1.7 L 2.3 1.8-2.4 MG/DL Total Bilirubin 0.2 0.2 0.1-1.0 MG/DL Aspartate Amino Transf (AST/SGOT) 20 19 5-34 U/L Alanine Aminotransferase (ALT/SGPT) 32 31 0-55 U/L Alkaline Phosphatase 47 47 40-136 U/L Total Creatine Kinase 46 29-168 U/L Creatine Kinase MB 1.0 <6.6 NG/ML Troponin I < 0.30 < 0.30 <0.30 NG/ML B-Type Natriuretic Peptide 144.1 H <100.0 PG/ML Total Protein 6.5 6.3 L 6.4-8.2 GM/DL Albumin 4.2 4.0 3.2-4.5 GM/DL Amylase Level 61 25-125 U/L Lipase 29 8-78 U/L Myoglobin 27.0 10.0-92.0 NG/ML Triglycerides Level 163 H <150 MG/DL Cholesterol Level 195 < 200 MG/DL LDL Cholesterol Direct 135 H 1-129 MG/DL VLDL Cholesterol 33 5-40 MG/DL HDL Cholesterol 41 40-60 MG/DL Physical Exam Vital Signs Vital Signs - First Documented 02/04/18 19:57 Temp 96.7 Pulse 66 Resp 16 B/P (MAP) 183/85 (117) Pulse Ox 96 O2 Delivery Room Air O2 Flow Rate 2.00 Capillary Refill : Less Than 3 Seconds Height, Weight, BMI Height: 5'6.00" Weight: 209lbs. 0.0oz. 94.660933yp; 33.9 BMI Method:Stated General Appearance: No Apparent Distress, WD/WN Eyes: Bilateral Eye Normal Inspection, Bilateral Eye PERRL, Bilateral Eye EOMI HEENT: PERRL/EOMI, TMs Normal, Normal ENT Inspection, Pharynx Normal Neck: Full Range of Motion, Normal Inspection, Non Tender, Supple, Carotid Bruit Respiratory: Chest Non Tender, Lungs Clear, Normal Breath Sounds, No Accessory Muscle Use, No Respiratory Distress Cardiovascular: Regular Rate, Rhythm, No Edema, No Gallop, No JVD, No Murmur, Normal Peripheral Pulses Gastrointestinal: Normal Bowel Sounds, No Organomegaly, No Pulsatile Mass, Non Tender, Soft Back: Normal Inspection, No CVA Tenderness, No Vertebral Tenderness Extremity: Normal Capillary Refill, Normal Inspection, Normal Range of Motion, Non Tender, No Calf Tenderness, No Pedal Edema Neurologic/Psychiatric: Alert, Oriented x3, No Motor/Sensory Deficits, Normal Mood/Affect Skin: Normal Color, Warm/Dry Lymphatic: No Adenopathy A/P-Cardiology Admission Diagnosis Chest pain Hypertension Hyperlipidemia Obesity Assessment/Plan Chest pain resembling angina associated with shortness of breath, multiple risk factors for coronary artery disease including hypertension, hyperlipidemia, hyperglycemia/prediabetes, obesity. Discussed the management plan and recommended stress test versus cardiac catheterization, patient is leaving town next week. Decision was made to proceed with cardiac catheterization possible PTCA. Hypertension, monitor blood pressure post cardiac catheterization next Hyperlipidemia patient will be started on statin BMI 33, discussed weight loss COPD, using oxygen at home. Clinical Quality Measures DVT/VTE Risk/Contraindication: Risk Factor Score Per Nursin RFS Level Per Nursing on Admit: 4+=Very High AZEB BAUTISTA MD Feb 05, 2018 10:55
[2018-02-05] MEDS ORDERED: ASPI-983 PO (10:56)
--- NOTE | 2018-02-05 10:57 | Cardiac Procedure Note-CS/ASA ---
Pre-Procedure Note Pre-Op Procedure Note H&P Reviewed The H&P was reviewed, patient examined and no changes noted. Date H&P Reviewed: Feb 05, 2018 Time H&P Reviewed: 10:56 Conscious Sedation Pre-Proced Time Reviewed: 10:56 ASA Class: 3 Airway Mallampati Classification: ([place] appropriate class) I. II. III, IV Lungs Heart ASA score ASA 1: a normal healthy patient ASA 2: a patient with a mild systemic disease (mid diabetes, controlled hypertension, obesity x ASA 3: a patient with a severe systemic disease that limits activity (angina , COPD, prior Myocardial infarction) ASA 4: a patient with an incapacitating disease that is a constant threat to life (CHF, renal failure) ASA 5: a moribund patient not expected to survive 24 hrs. (ruptured aneurysm) ASA 6: a declared brain patient whose organs are being harvested. For emergent operations, add the letter E after the classification Grade 3 Sedation Plan: Analgesia, Amnesia, Plan communicated to team members, Discussed options with patient/fam, Discussed risks with patient/fam Note The patient is an appropriate candidate to undergo the planned procedure, sedation, and anesthesia. The patient immediately re-assessed prior to indication. AZEB BAUTISTA MD Feb 05, 2018 10:56
[2018-02-05] MEDS: RT-ALBUTEROL/IPRATROPIUM 3 ML (DUONEB) VIAL INH SCH ×4 (11:00→21:43)
[2018-02-05] MEDS ORDERED: NS IV 1000 ML 1,000 ML IV SCH (11:00)
--- NOTE | 2018-02-05 11:26 | History & Physical-Hospitalist ---
GRACIANIRMALA MED STUDENT 02/05/18 1126: History of Present Illness HPI/Chief Complaint This is a 67 yo white F who presented to [facility] ER with chest pain. Pt is from [place], [place] and visiting her sister here in town. She states she left her O2 tank at home because she did not think she would need it. Pt reports she usually uses her O2 when walking around. She reports she is a former smoker and used to smoke 1 cigarette per day. She reports she has a home health nurse during the week. Source: patient Exam Limitations: language barrier Date Seen 02/05/18 Time Seen by Provider: 10:00 Attending Physician Feliberto Ortiz MD PCP No,Local Physician Referring Physician Date of Admission Feb 04, 2018 at 21:07 Home Medications & Allergies Home Medications Reviewed patient Home Medication Reconciliation performed by pharmacy medication reconciliations crown and bridge technician and/or nursing. Patients Allergies have been reviewed. Allergies Allergies Coded Allergies Penicillins (Verified Allergy, Unknown, 02/04/18) Past Wezapne-Ykovue-Ohdqxt Hx Patient Social History Marrital Status: single Alcohol Use: Denies Use Recreational Drug Use: No Smoking Status: Former Smoker Type Used: Cigarettes Physical Abuse Screen: No Sexual Abuse: No Recent Foreign Travel: No Contact w/other who traveled: No Recent Hopitalizations: No Recent Infectious Disease Expo: No Immunizations Up To Date Tetanus Booster (TDap): Unknown Pediatric: Yes Date of Pneumonia Vaccine: Feb 04, 2017 Seasonal Allergies Seasonal Allergies: Yes Past Medical History Surgeries: Bladder Surgery, Hysterectomy, Orthopedic Currently Using CPAP: Yes Cardiac: Hypertension Neurological: Developmental Disorder Genitourinary: Kidney Infection, Bladder Infection Gastrointestinal: Gastroesophageal Reflux, Chronic Constipation Musculoskeletal: Osteoporosis, Arthritis, Fractures Endocrine: Hypothyroidsim Psychosocial: Anxiety, Depression History of Blood Disorders: No Review of Systems Respiratory: dyspnea on exertion, short of breath Physical Exam Physical Exam Vital Signs Vital Signs - First Documented 02/04/18 19:57 Temp 96.7 Pulse 66 Resp 16 B/P (MAP) 183/85 (117) Pulse Ox 96 O2 Delivery Room Air O2 Flow Rate 2.00 Capillary Refill : Less Than 3 Seconds Height, Weight, BMI Height: 5'6.00" Weight: 209lbs. 0.0oz. 94.184006bg; 33.9 BMI Method:Stated Results Results/Procedures Labs Laboratory Tests 02/04/18 20:00 02/05/18 03:10 Patient resulted labs reviewed. Assessment/Plan Admission Diagnosis Chest pain Assessment and Plan Assessment: COPD exacerbation Plan: O2 assessment RT consult Monitor bowel/bladder Diagnosis/Problems Diagnosis/Problems (1) Dyspnea on exertion Status: Acute Clinical Quality Measures DVT/VTE Risk/Contraindication: Risk Factor Score Per Nursin RFS Level Per Nursing on Admit: 4+=Very High SHERRY CARRASCO DO 02/05/18 1247: History of Present Illness HPI/Chief Complaint CC: Chest pain HPI: This is a 67yoWF w/mental disability who presented with chest pain that was very fleeting but multiple risk factors precluded discharge from the ER so she was placed in observation placed on telemetry and monitor closely. I did consult Dr. Joseph who will see her in consultation. She does have a history of smoking and does have exacerbation of COPD currently so will initiate IV steroids nebulizer treatments Pulmicort neb treatment twice a day and monitor closely. Her primary care provider is Dr. 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) Smoking Status: Former Smoker Past Medical History Surgeries: Bladder Surgery, Hysterectomy, Orthopedic Respiratory: COPD, Sleep Apnea Currently Using CPAP: Yes Cardiac: High Cholesterol, Hypertension Neurological: Developmental Disorder Genitourinary: Kidney Infection, Bladder Infection Gastrointestinal: Gastroesophageal Reflux, Chronic Constipation Musculoskeletal: Osteoporosis, Arthritis Endocrine: Hypothyroidsim History of Blood Disorders: No Review of Systems Constitutional: see HPI, weakness EENTM: no symptoms reported Respiratory: dyspnea on exertion, short of breath Cardiovascular: chest pain Gastrointestinal: loss of appetite Genitourinary: no symptoms reported Musculoskeletal: no symptoms reported Skin: no symptoms reported Psychiatric/Neurological: Anxiety All Other Systems Reviewed Negative Unless Noted: Yes Physical Exam Physical Exam General Appearance: No Apparent Distress, WD/WN, Chronically ill, Obese, Other (speech impediment giving rise to communication diff) Eyes: Bilateral Eye Normal Inspection, Bilateral Eye PERRL HEENT: PERRL/EOMI, TMs Normal, Normal ENT Inspection, Pharynx Normal Neck: Full Range of Motion, Normal Inspection, Non Tender, Supple, Carotid Bruit Respiratory: Chest Non Tender, No Accessory Muscle Use, No Respiratory Distress , Decreased Breath Sounds, Wheezing Cardiovascular: Regular Rate, Rhythm, No Edema, No Gallop, No JVD, No Murmur, Normal Peripheral Pulses Gastrointestinal: Normal Bowel Sounds, No Organomegaly, No Pulsatile Mass, Non Tender, Soft Back: Normal Inspection, No CVA Tenderness, No Vertebral Tenderness Extremity: Normal Capillary Refill, Normal Inspection, Normal Range of Motion, Non Tender, No Calf Tenderness, No Pedal Edema Neurologic/Psychiatric: Alert, Oriented x3, No Motor/Sensory Deficits, Normal Mood/Affect Skin: Normal Color, Warm/Dry Lymphatic: No Adenopathy Assessment/Plan Admission Diagnosis Chest pain consulting Dr Joseph AECOPD Mental disability Smoker HTN JOHN Plan: Monitor closely Dr Joseph and Dr Barraza consultation Admission Status: Observation Diagnosis/Problems Diagnosis/Problems (1) Chest pain Status: Acute Qualifiers: Ischemic chest pain type: unspecified angina pectoris type (2) Dyspnea on exertion Status: Acute (3) COPD exacerbation Status: Acute (4) Smoker Status: Chronic (5) JOHN on CPAP Status: Chronic (6) Obesity Status: Chronic Qualifiers: Obesity type: due to excess calories Obesity classification: adult class 1 (BMI 30 - 34.9) Serious obesity comorbidity presence: with serious comorbidity Body mass index: BMI 33.0-33.9 Qualified Codes: E66.09 - Other obesity due to excess calories; Z68.33 - Body mass index (bmi) 33.0-33.9, adult (7) Mental disability Status: Chronic (8) Hypertension Status: Chronic Qualifiers: Hypertension type: essential hypertension Qualified Codes: I10 - Essential (primary) hypertension (9) Hyperlipidemia Status: Chronic Qualifiers: Hyperlipidemia type: mixed hyperlipidemia Qualified Codes: E78.2 - Mixed hyperlipidemia (10) Renal insufficiency Status: Acute (11) Hypomagnesemia Status: Acute (12) Mild anemia Status: Acute NIRMALA FAGAN STUDENT Feb 05, 2018 11:26 SHERRY CARRASCO DO Feb 05, 2018 12:47
[2018-02-05] MEDS ORDERED: GUAI600T43 PO (12:03)
[2018-02-05] MEDS ORDERED: LORA10TA7 PO (12:03)
[2018-02-05] MEDS ORDERED: POLY17PO6 PO (12:03)
[2018-02-05] MEDS ORDERED: DOCU-143 PO (12:03)
[2018-02-05] MEDS ORDERED: MULT1CAP27 PO (12:03)
[2018-02-05] MEDS ORDERED: FLUT16SP22 NS (12:03)
[2018-02-05] MEDS ORDERED: [UNRECOGNIZED DRUG - CODE] PO (12:03)
[2018-02-05] MEDS ORDERED: DIPH25CA79 PO ×2 (12:03)
[2018-02-05] MEDS ORDERED: PETR18JE3 TP (12:03)
[2018-02-05] MEDS ORDERED: ACET-2267 PO (12:03)
[2018-02-05] MEDS ORDERED: ACHD5005 PO (12:17)
[2018-02-05] MEDS ORDERED: ASPIRIN 325 MG (5 GR) TABLET ONE (12:29)
[2018-02-05] MEDS ORDERED: TICAGRELOR 90 MG TABLET (BRILINTA) PO ONE (12:30)
--- NOTE | 2018-02-05 12:38 | Cardiac Cath Report ---
Cardiac Cath Report Physician (s)/Electric Shipyard Operator (s) Physician AZEB BAUTISTA MD Pre-Procedure Diagnosis Pre-Procedure Diagnosis: Chest pain Post-Procedure Note Procedure Start Date: Feb 05, 2018 Name of Procedure: Left heart catheterization, left ventriculogram Stenting to the circumflex artery Stenting to the LAD Findings/Procedure Note PROCEDURE NOTE: After explaining the procedure to the patient, all pros and cons were explained , all questions were answered. The patient signed the consent and then she was placed on the cardiac catheterization laboratory. Groin was prepped SL fashion local anesthesia was used. Sheath placed in the right radial artery. Preston catheter was used to access the coronary system and prolapse of the left ventricular cavity, pressure was measured left ventricular gram was done. Patient was given additional 6000 units of heparin. I attempted to intubate the coronary system with different guides without success. Decided to secure the radial sheath and placed a femoral sheath in the right groin. 3.5 FL guide was used, BMW wire was advanced in the circumflex artery that has severe subtotal occlusion, predilatation with 2.515 mm balloon and then deployment of Alpine 2.7515 mm expanded to 3.0 mm with excellent results then the wire was redirected to the LAD and parked in the LAD, patient has 70's percent stenosis in the mid LAD, primary stenting using Alpine 2.7515 mm expanded to 3.0 mm with excellent results. No residual stenosis. At the end of the procedure the sheath was removed. Closure device to the right groin and manual pressure to the radial sheath FINDINGS: Hemodynamics LV 136/34, end-diastolic pressure of 34 Aorta 124/73 mean of 96 ANATOMY: Left Main is free of obstructive disease Left Anterior Descending has 70 percent stenosis mid LAD successful primary stenting using Alpine drug-eluting stent 2.7515 mm expanded to 3.0 mm with excellent results and no residual stenosis Left Circumflex has severe stenosis at the midportion 80-90 percent, successful balloon angioplasty then deployment of Alpine drug-eluting stent 2.7515 mm expanded to 3.0 mm with excellent results and no residual stenosis Right Coronory Artery is moderate in size, no obstructive disease LV Gram is normal, frequent ectopy induced by the catheter good contractibility ejection fraction 60 percent CONCLUSION: 1. 70 percent stenosis in the mid LAD successful primary stenting using 2.75 15 mm Alpine stent expanded to 3.0 mm with excellent results 2. 80-90 percent stenosis in the mid circumflex artery successful balloon dilatation then deployment of Alpine stent 2.7515 mm expanded to 3 mm with excellent results and no residual stenosis 3. No obstructive disease in the right coronary artery 4. Normal left ventricular size and systolic function, estimated ejection fraction 60 percent DISCUSSION AND RECOMMENDATION: Maximize medical therapy Anesthesia Type: Conscious Sedation Estimated blood loss (mL): 10 ml Contrast Amount: 160 ml Total Radiation Dose: 62.58 mGy Post-Procedure Diagnosis Post-operative diagnosis: Unstable angina Coronary artery disease Hypertension Hyperlipidemia (1) Dyspnea on exertion AZEB BAUTISTA MD Feb 05, 2018 12:38
[2018-02-05] MEDS ORDERED: PATIENT MAY USE OWN MEDS, ALL PO SCH (12:45)
[2018-02-05] MEDS ORDERED: FLUTICASONE NASAL SPRAY (FLONASE) 16 GM BTL NS PRN (13:30)
[2018-02-05] MEDS ORDERED: NITROGLYCERIN 0.4 MG SL TABS BTL 25'S SL PRN (13:30)
[2018-02-05] MEDS ORDERED: HYDROcodone/APAP 5 MG/325 MG (LORTAB) TAB PO PRN (13:30)
[2018-02-05] MEDS ORDERED: guaiFENesin (MUCINEX) 600 MG TAB PO PRN (13:30)
[2018-02-05] MEDS ORDERED: ALBUTEROL IH PRN (13:30)
[2018-02-05] MEDS ORDERED: DOCUSATE SODIUM 100 MG (COLACE) CAP PO PRN (13:30)
[2018-02-05] MEDS ORDERED: diphenhydrAMINE 25 MG TAB (BENADRYL) PO PRN ×2 (13:30)
[2018-02-05] MEDS ORDERED: ACETAMINOPHEN 500 MG TAB (TYLENOL) PO PRN (13:30)
[2018-02-05] MEDS: RT-BUDESONIDE NEBS 0.5 MG/2ML (PULMICORT) AMP INH SCH ×2 (14:10→18:54)
[2018-02-05] MEDS: methylPREDNISolone 125 MG (Solu-MEDROL) VIAL IVP SCH ×2 (16:48→16:59)
[2018-02-05] MEDS: NS IV 1000 ML 1,000 ML IV SCH ×2 (16:48→22:47)
[2018-02-05] MEDS: OMEGA 3 (FISH OIL) 1000 MG CAP PO SCH (16:59)
[2018-02-05] MEDS: HYDROCHLOROTHIAZIDE 25 MG (HCTZ) TAB PO SCH (17:04)
[2018-02-05] MEDS: RT-ADVAIR HFA 115/21 MCG PER PUFF IH SCH (18:55)
[2018-02-05] MEDS: TICAGRELOR 90 MG TABLET (BRILINTA) PO SCH (20:37)
[2018-02-05] MEDS: meTOprolol TARTRATE 50 MG (LOPRESSOR) TAB PO SCH (20:38)
[2018-02-05] MEDS: LOSARTAN POTASSIUM 50 MG PO SCH (20:38)
[2018-02-05] MEDS ORDERED: traZODone 100 MG (DESYREL) TAB PO SCH (21:00)
[2018-02-05] MEDS ORDERED: ATORVASTATIN 20 MG (LIPITOR) TABLET PO SCH (21:00)
[2018-02-06] VITALS: BP 142/72
[2018-02-06] MEDS: methylPREDNISolone 125 MG (Solu-MEDROL) VIAL IVP SCH (00:18)
[2018-02-06] MEDS: RT-ALBUTEROL/IPRATROPIUM 3 ML (DUONEB) VIAL INH SCH ×3 (01:50→10:39)
[2018-02-06 04:00] VITALS: BP 139/65
[2018-02-06 04:10] LABS: BASOPHILS % (AUTO) 0 % (0-10); EOSINOPHILS % (AUTO) 0 % (0-10); HEMATOCRIT 30 % (35-52); LYMPHOCYTES # (AUTO) 0.3 X 10^3 (1.0-4.0); LYMPHOCYTES % (AUTO) 6 % (12-44); MEAN CORPUSCULAR HEMOGLOBIN 28 PG (25-34); MEAN CORPUSCULAR HGB CONC 34 G/DL (32-36); MEAN CORPUSCULAR VOLUME 84 FL (80-99); MEAN PLATELET VOLUME 12.6 FL (7.4-10.4); MONOCYTES # (AUTO) 0.1 X 10^3 (0.0-1.0); MONOCYTES % (AUTO) 2 % (0-12); NEUTROPHILS # (AUTO) 5.4 X 10^3 (1.8-7.8); NEUTROPHILS % (AUTO) 92 % (42-75); PLATELET COUNT 119 10^3/uL (130-400); RED BLOOD COUNT 3.57 10^6/uL (4.35-5.85); RED CELL DISTRIBUTION WIDTH 13.9 % (10.0-14.5); WHITE BLOOD COUNT 5.8 10^3/uL (4.3-11.0)
[2018-02-06 04:28] LABS: ANISOCYTOSIS SLIGHT; BAND NEUTROPHILS 0 %; BASOPHILS % (MANUAL) 0 %; EOSINOPHILS % (MANUAL) 0 %; LYMPHOCYTES % (MANUAL) 6 %; MONOCYTES % (MANUAL) 1 %; NEUTROPHILS % (MANUAL) 93 %; ROULEAUX SLIGHT
[2018-02-06 04:31] LABS: ALANINE AMINOTRANSFERASE 35 U/L (0-55); ALBUMIN 4.1 GM/DL (3.2-4.5); ALKALINE PHOSPHATASE 46 U/L (40-136); BILIRUBIN,TOTAL 0.4 MG/DL (0.1-1.0); BUN/CREATININE RATIO 23; CALCIUM 9.2 MG/DL (8.5-10.1); CARBON DIOXIDE 21 MMOL/L (21-32); CHLORIDE 101 MMOL/L (98-107); CREATININE SERUM 0.88 MG/DL (0.60-1.30); GFR ESTIMATED > 60; GLUCOSE 144 MG/DL (70-105); POTASSIUM 4.7 MMOL/L (3.6-5.0); SODIUM 133 MMOL/L (135-145); TOTAL PROTEIN 6.7 GM/DL (6.4-8.2)
--- NOTE | 2018-02-06 05:08 | Pulmonary Consultation ---
History of Present Illness History of Present Illness Date of Consultation 02/06/18 05:03 Time Seen by Provider: 05:10 Date of Admission Reason for Visit: Chest pain History of Present Illness 67yo with hx of COPD oxygen dependent, JOHN, mental disability visiting family here and developed CP with radiation to right side of chest and increased worsening SOB. She presented to ED via EMS and was found to be hypoxic. Pt is usually on oxygen however she did not bring it with her on her trip. Pt is now s /p cath with stent placement. I am consulted for pulmonary management and to help arrange oxygen for her 6hr trip back home. Allergies and Home Medications Allergies Coded Allergies: Penicillins (Verified Allergy, Unknown, 02/04/18) Home Medications Acetaminophen 500 Mg Tablet, 500-1,000 MG PO TID PRN for PAIN-MILD, (Reported) Albuterol Sulfate 18 Gm Hfa.aer.ad, 2 PUFF INH Q4H PRN for SHORTNESS OF BREATH, (Reported) Alendronate Sodium 5 Mg Tablet, 5 MG PO DAILY, (Reported) Aspirin 81 Mg Tablet.dr, 81 MG PO DAILY, (Reported) Budesonide/Formoterol Fumarate 10.2 Gm Hfa.aer.ad, 2 PUFF INH BID, (Reported) LAST FILLED 11-24-17 Citalopram Hydrobromide 40 Mg Tablet, 40 MG PO DAILY, (Reported) Diphenhydramine HCl 25 Mg Capsule, 25 MG PO 1200 PRN for ALLERGIES, (Reported) Diphenhydramine HCl 25 Mg Capsule, 50 MG PO HS PRN for ALLERGIES, (Reported) Docusate Sodium 100 Mg Capsule, 100 MG PO DAILY PRN for CONSTIPATION-1ST LINE, ( Reported) Esomeprazole Magnesium 40 Mg Capsule.dr, 40 MG PO DAILY, (Reported) Fluticasone Propionate 16 Gm [place].susp, 1 SPRAY NS BID PRN for ALLERGIES, ( Reported) Guaifenesin 600 Mg Tab.er.12h, 600 MG PO BID PRN for CONGESTION, (Reported) Hydrochlorothiazide 25 Mg Tablet, 25 MG PO BID, (Reported) Hydrocodone Bit/Acetaminophen 1 Tab Tab, 1 TAB PO Q6H PRN for PAIN-MODERATE, ( Reported) Linaclotide 145 Mcg Capsule, 145 MCG PO DAILY, (Reported) Loratadine 10 Mg Tablet, 10 MG PO DAILY, (Reported) Losartan Potassium 50 Mg Tablet, 50 MG PO BID, (Reported) Metoprolol Tartrate 50 Mg Tablet, 50 MG PO BID, (Reported) Multivitamin 1 Each Capsule, 1 CAP PO DAILY, (Reported) Nitroglycerin 0.4 Mg Tab.subl, 0.4 MG SL UD PRN for CHEST PAIN, (Reported) Petrolatum,White 18 Ml Jelly.ml., TP BID PRN for VAGINAL ITCHING, (Reported) Polyethylene Glycol 3350 17 Gm Powd.pack, 17 GM PO DAILY PRN for CONSTIPATION- 2ND LINE, (Reported) Trazodone HCl 100 Mg Tablet, 150 MG PO HS, (Reported) TAKES 1 & 1/2 (100MG) TABLET Past Rvnbwwm-Xqdmky-Gzmgus Hx Past Med/Social Hx: Reviewed Nursing Past Med/Soc Hx, Reviewed and Corrections made Patient Social History Alcohol Use: Denies Use Recreational Drug Use: No Smoking Status: Former Smoker Type Used: Cigarettes Recent Foreign Travel: No Contact w/Someone Who Travel: No Recent Infectious Disease Expo: No Recent Hopitalizations: No Immunizations Up To Date Tetanus Booster (TDap): Unknown PED Vaccines UTD: Yes Date of Pneumonia Vaccine: Feb 04, 2017 Seasonal Allergies Seasonal Allergies: Yes Past Medical History Surgeries: Yes Bladder Surgery, Hysterectomy, Orthopedic Respiratory: Yes (O2 AT HS AND WITH ACTIVITY; CHRONIC DYSPNEA ON EXERTION) Chronic Bronchitis, Sleep Apnea, COPD Currently Using CPAP: Yes Cardiac: Yes High Cholesterol, Hypertension Neurological: Yes Developmental Disorder Genitourinary: Yes (INCONTINENCE) Kidney Infection, Bladder Infection Gastrointestinal: Yes Gastroesophageal Reflux, Chronic Constipation Musculoskeletal: Yes Osteoporosis, Arthritis Endocrine: Yes Hypothyroidsim HEENT: Yes (SPEECH IMPEDIMENT) Cancer: No Psychosocial: Yes (? MR ?) Anxiety, Depression Integumentary: No Blood Disorders: No Review of Systems Time Seen by Provider: 05:13 Constitutional: Sweats, Weakness, Malaise; No: Fever, Chills, Other Eyes: No: Pain, Vision change, Conjunctivae inflammation, Eyelid inflammation, Other, Redness ENT: Nose discharge, Nose congestion; No: Ear pain, Ear discharge, Nose pain, Mouth pain, Mouth swelling, Throat pain, Throat swelling, Other Respiratory: Cough, Shortness of breath, SOB with excertion, Wheezing, Sputum; No: Hemoptysis, Pleuritic Pain Cardiovascular: Chest Pain, Paroxysmal Noc. Dyspnea; No: Palpitations, Orthopnea Gastrointestinal: No: Nausea, Vomiting, Abdominal Pain, Diarrhea, Constipation , Melena, Hematochezia, Other Genitourinary: No Dysuria, No Frequency, No Incontinence, No Hematuria, No Retention, No Other Sepsis Event Evaluation Height, Weight, BMI Height: 5'6.00" Weight: 209lbs. 0.0oz. 94.130720ck; 33.9 BMI Method:Stated Exam Exam Vital Signs Date Time Temp Pulse Resp B/P (MAP) Pulse Ox O2 Delivery O2 Flow Rate FiO2 02/06/18 04:00 Room Air 02/06/18 04:00 97.2 79 16 139/65 (89) 96 Room Air 02/06/18 01:50 96 Room Air 02/06/18 01:00 70 02/06/18 00:00 Room Air 02/06/18 00:00 97.9 85 18 142/72 (95) 95 Room Air 02/05/18 21:43 95 Room Air 02/05/18 21:00 Room Air 02/05/18 20:00 98.8 97 16 150/78 (102) 95 Room Air 02/05/18 20:00 Room Air 02/05/18 19:33 93 02/05/18 19:08 99 Room Air 02/05/18 19:04 98 Room Air 02/05/18 18:55 95 Room Air 02/05/18 16:00 73 15 160/76 (104) 94 Room Air 02/05/18 15:39 Room Air 02/05/18 15:00 81 13 167/76 (106) 94 Room Air 02/05/18 14:14 100 02/05/18 14:09 98 Room Air 02/05/18 14:00 69 17 159/80 (106) 94 Room Air 02/05/18 13:10 Room Air 02/05/18 13:10 97.8 Room Air 02/05/18 13:00 71 02/05/18 10:00 98.6 89 17 137/76 (96) 97 Room Air 02/05/18 09:05 Room Air 02/05/18 09:05 Room Air 02/05/18 07:00 78 I & O 02/06/18 07:00 Intake Total 1350 ml Balance 1350 ml Height & Weight Height: 5'6.00" Weight: 209lbs. 0.0oz. 94.214837ui; 33.9 BMI Method:Stated General Appearance: No Apparent Distress, WD/WN, Chronically ill, Obese, Other (speech impediment giving rise to communication diff) HEENT: PERRL/EOMI, TMs Normal, Normal ENT Inspection, Pharynx Normal Neck: Full Range of Motion, Normal Inspection, Non Tender, Supple, Carotid Bruit Respiratory: Chest Non Tender, No Accessory Muscle Use, No Respiratory Distress , Decreased Breath Sounds, Wheezing Cardiovascular: Regular Rate, Rhythm, No Edema, No Gallop, No JVD, No Murmur, Normal Peripheral Pulses Capillary Refill: Less Than 3 Seconds Extremity: Normal Capillary Refill, Normal Inspection, Normal Range of Motion, Non Tender, No Calf Tenderness, No Pedal Edema Neurologic/Psychiatric: Alert, Oriented x3, No Motor/Sensory Deficits, Normal Mood/Affect Skin: Normal Color, Warm/Dry Lymphatic: No Adenopathy Results Lab Laboratory Tests 02/04/18 20:00 02/05/18 03:10 02/06/18 03:15 Assessment/Plan Assessment/Plan Acute CP s/p Cath with stent placement -Cardiology following Dyspnea with exertion -Pt usually has oxygen and CPAP for JOHN however she did not bring it with her -Will have RT do a oxygen desat test to evaluate for portable oxygen -Pt has been in the 90's at rest with RA. COPDAE with home 02 -SVNs -Solumedrol change to prednisone taper OBesity with JOHN -home CPAP however does not currently have it with her -Education CHIKIS FALL DO Feb 06, 2018 05:08
[2018-02-06] MEDS: RT-ADVAIR HFA 115/21 MCG PER PUFF IH SCH (05:58)
[2018-02-06] MEDS: RT-BUDESONIDE NEBS 0.5 MG/2ML (PULMICORT) AMP INH SCH (05:58)
[2018-02-06] MEDS: HYDROCHLOROTHIAZIDE 25 MG (HCTZ) TAB PO SCH (06:51)
[2018-02-06] MEDS: OMEGA 3 (FISH OIL) 1000 MG CAP PO SCH (06:51)
[2018-02-06] MEDS ORDERED: MULTIVIT W/MINERALS TAB (THERAGRAN M) PO SCH (07:00)
[2018-02-06] MEDS: TICAGRELOR 90 MG TABLET (BRILINTA) PO SCH (07:54)
[2018-02-06 07:55] VITALS: BP 156/65
[2018-02-06] MEDS: LOSARTAN POTASSIUM 50 MG PO SCH (07:55)
[2018-02-06] MEDS: meTOprolol TARTRATE 50 MG (LOPRESSOR) TAB PO SCH (07:56)
--- NOTE | 2018-02-06 08:41 | Progress Note-Hospitalist ---
MARYBELNIRMALA YANG MED STUDENT 02/06/18 0841: Subjective HPI/CC On Admission Date Seen by Provider: Feb 06, 2018 Time Seen by Provider: 07:30 CC: Chest pain HPI: This is a 67yoWF w/mental disability who presented with chest pain that was very fleeting but multiple risk factors precluded discharge from the ER so she was placed in observation placed on telemetry and monitor closely. I did consult Dr. Joseph who will see her in consultation. She does have a history of smoking and does have exacerbation of COPD currently so will initiate IV steroids nebulizer treatments Pulmicort neb treatment twice a day and monitor closely. Her primary care provider is Dr. Prado in [facility] Subjective/Events-last exam Pt appears much better than yesterday No dyspnea Denies pain Has not had a BM- gas only Plan is to check if pt requires O2 with exertion DC today if arrangements can be made for O2 Objective Exam Vital Signs Vital Signs Date Time Temp Pulse Resp B/P (MAP) Pulse Ox O2 Delivery O2 Flow Rate FiO2 02/06/18 06:02 Room Air 02/06/18 06:01 99 02/06/18 04:00 97.2 79 16 139/65 (89) 02/04/18 22:10 2.00 Capillary Refill : Less Than 3 Seconds Results/Procedures Lab Laboratory Tests 02/06/18 03:15 Patient resulted labs reviewed. Assessment/Plan Assessment and Plan Assess & Plan/Chief Complaint Assessment: COPD exacerbation Plan: O2 assessment Bowel regimen Diagnosis/Problems Diagnosis/Problems (1) Dyspnea on exertion Status: Acute (2) Obesity Status: Chronic Qualifiers: Obesity type: due to excess calories Obesity classification: adult class 1 (BMI 30 - 34.9) Serious obesity comorbidity presence: with serious comorbidity Body mass index: BMI 33.0-33.9 Qualified Codes: E66.09 - Other obesity due to excess calories; Z68.33 - Body mass index (bmi) 33.0-33.9, adult (3) Mental disability Status: Chronic (4) COPD exacerbation Status: Acute Clinical Quality Measures DVT/VTE Risk/Contraindication: Risk Factor Score Per Nursin RFS Level Per Nursing on Admit: 4+=Very High SHERRY CARRASCO DO 02/06/185: Subjective Subjective/Events-last exam see dc note Review of Systems General: Malaise Objective Exam General Appearance: No Apparent Distress, WD/WN, Chronically ill, Obese Respiratory: Lungs Clear, Normal Breath Sounds Cardiovascular: Regular Rate, Rhythm, No Edema Assessment/Plan Assessment and Plan Assess & Plan/Chief Complaint see dc note Diagnosis/Problems Diagnosis/Problems (1) Angina pectoris Status: Acute (2) Obesity Status: Chronic Qualifiers: Obesity type: due to excess calories Obesity classification: adult class 1 (BMI 30 - 34.9) Serious obesity comorbidity presence: with serious comorbidity Body mass index: BMI 33.0-33.9 Qualified Codes: E66.09 - Other obesity due to excess calories; Z68.33 - Body mass index (bmi) 33.0-33.9, adult (3) Mental disability Status: Chronic (4) COPD exacerbation Status: Acute (5) Dyspnea on exertion Status: Acute (6) CAD (coronary artery disease) Status: Acute Qualifiers: Coronary Disease-Associated Artery/Lesion type: [place] artery [place] vs. transplanted heart: [place] heart Associated angina: with unstable angina Qualified Codes: I25.110 - Atherosclerotic heart disease of [place] coronary artery with unstable angina pectoris (7) JOHN on CPAP Status: Chronic NIRMALA FAGAN MED STUDENT Feb 06, 2018 08:41 SHERRY CARRASCO DO Feb 06, 2018 21:35
[2018-02-06] MEDS ORDERED: LISI-556 PO (08:44)
[2018-02-06] MEDS ORDERED: TICA90TA PO (08:44)
[2018-02-06] MEDS ORDERED: OMG1KC PO (08:44)
[2018-02-06] MEDS ORDERED: ATOR20TA66 PO (08:44)
--- NOTE | 2018-02-06 08:45 | Discharge Inst-Post CATH ---
Discharge Inst-CATH Post Cardiac Cath D/C Inst Follow Up/Plan Appointment with Dr. Joseph's office in 2-4 weeks CARDIAC CATH DISCHARGE INSTRUCTIONS *Hold Metformin for 48 hours post heart cath. ACTIVITY * Go Home directly and rest. * Limit activity of the leg (or wrist if it was used) for 7 days including aerobics, swimming, jogging, bicycling, etc. * Restrict stair-climbing for 7 days if possible, if not, climb up with your non -cath leg, then bring together on the same step. * Avoid lifting, pushing, pulling or excessive movement of the affected extremity for 7 days. * Customary sexual activity may be resumed after 2 days-use caution not to use a position that strains or causes pain to the affected extremity. * No driving for 24 hours. * NO SMOKING. * Avoid straining for bowel movements for 7 days. * Gentle walking on level ground is allowed. * Returning to work will depend on the type of procedure and the results. Your doctor will discuss this with you. CALL YOUR DOCTOR FOR ANY OF THE FOLLOWING: *If bleeding from the puncture site occurs- Apply gentle pressure to site with clean cloth and call your doctor or EMS. * If a knot or lump forms under the skin, increases in size, or causes pain. * If bruising appears to be worsening or moving further down your leg instead of disappearing. * Temperature above 101 F. CARE OF YOUR GROIN INCISION; * Bruising or purple discoloration of the skin near the puncture site is common. * You may shower only, no bathtub bathing for 5 days. Be careful to avoid slipping as your leg may feel stiff. * If a closure device was used on your femoral artery, please see the attached guide regarding care of the device and your leg. * REMOVE the dressing from your groin the next day after your procedure in the shower. CARE OF YOUR WRIST INCISION; * Bruising or purple discoloration of the skin near the puncture site is common. * You may shower. * DO NOT submerge wrist. * Remove dressing in 24 hours. AZEB JOSEPH MD Feb 06, 2018 08:45
[2018-02-06] MEDS ORDERED: predniSONE 10 MG TAB PO SCH (09:00)
[2018-02-06] MEDS ORDERED: ASPIRIN E.C. 81 MG (ECOTRIN) TAB PO SCH ×2 (09:00)
[2018-02-06] MEDS ORDERED: Esomeprazole Magnesium 40 MG PO SCH (09:00)
[2018-02-06] MEDS ORDERED: ALENDRONATE SODIUM 5 MG PO SCH (09:00)
[2018-02-06] MEDS ORDERED: lisINopril 5 MG (PRINIVIL) TABLET PO SCH (09:00)
[2018-02-06] MEDS ORDERED: Linaclotide (Linzess) 145 MCG PO SCH (09:00)
[2018-02-06] MEDS ORDERED: LORATADINE (CLARITIN) 10 MG TAB PO SCH (09:00)
[2018-02-06] MEDS ORDERED: POLYETHYLENE GLYCOL 17 GM (MIRALAX) PACK PO PRN (09:00)
[2018-02-06] MEDS: NS IV 1000 ML 1,000 ML IV SCH (10:48)
--- NOTE | 2018-02-06 11:32 | Discharge Summary-Hospitalist ---
Diagnosis/Chief Complaint Date of Admission Feb 04, 2018 at 21:07 Date of Discharge Discharge Date: Feb 06, 2018 Admission Diagnosis Chest pain consulting Dr Joseph AECOPD Mental disability Smoker HTN JOHN Plan: Monitor closely Dr Joseph and Dr Barraza consultation Discharge Diagnosis (1) S/P coronary artery stent placement Status: Acute (2) Angina pectoris Status: Acute (3) CAD (coronary artery disease) Status: Acute (4) Dyspnea on exertion Status: Acute (5) Obesity Status: Chronic (6) Mental disability Status: Chronic (7) COPD exacerbation Status: Acute Discharge Summary Discharge Physical Exam Allergies: Coded Allergies: Penicillins (Verified Allergy, Unknown, 02/04/18) Vitals & I&Os Vital Signs Date Time Temp Pulse Resp B/P (MAP) Pulse Ox O2 Delivery O2 Flow Rate FiO2 02/06/18 12:00 02/06/18 10:40 95 Room Air 02/06/18 07:55 98.3 87 16 02/04/18 22:10 2.00 General Appearance: Alert, Oriented X3, Cooperative HEENT: Atraumatic, PERRLA Respiratory: Clear to Auscultation Cardiovascular: Regular Rate, Normal S1, Normal S2 Neuro: Normal Gait, Normal Speech, Strength at 5/5 X4 Ext Psych/Mental Status: Mental Status NL, Mood NL Hospital Course Hospital course: patient had a standard hospital course for chest pain initially but Dr Joseph assessed her to have unstable angina so he performed cath and revealed stenosis and placement of stent was performed. AECOPD was managed conservatively along with Dr Barraza consultation. All home meds were restarted and Dr Joseph initiated new home meds and patient was DC in improved condition. Labs (last 24 hrs) Laboratory Tests 02/06/18 03:15: White Blood Count 5.8, Red Blood Count 3.57L, Hemoglobin 10.0L, Hematocrit 30L, Mean Corpuscular Volume 84, Mean Corpuscular Hemoglobin 28, Mean Corpuscular Hemoglobin Concent 34, Red Cell Distribution Width 13.9, Platelet Count 119L, Mean Platelet Volume 12.6H, Neutrophils (%) (Auto) 92H, Lymphocytes (%) (Auto) 6L, Monocytes (%) (Auto) 2, Eosinophils (%) (Auto) 0, Basophils (%) (Auto) 0, Neutrophils # (Auto) 5.4, Lymphocytes # (Auto) 0.3L, Monocytes # (Auto) 0.1, Eosinophils # (Auto) 0.0, Basophils # (Auto) 0.0, Neutrophils % (Manual) 93, Lymphocytes % (Manual) 6, Monocytes % (Manual) 1, Eosinophils % (Manual) 0, Basophils % (Manual) 0, Band Neutrophils 0, Anisocytosis SLIGHT, Rouleau SLIGHT , Sodium Level 133L, Potassium Level 4.7, Chloride Level 101, Carbon Dioxide Level 21, Anion Gap 11, Blood Urea Nitrogen 20H, Creatinine 0.88, Estimat Glomerular Filtration Rate > 60, BUN/Creatinine Ratio 23, Glucose Level 144H, Calcium Level 9.2, Corrected Calcium 9.1, Total Bilirubin 0.4, Aspartate Amino Transf (AST/SGOT) 22, Alanine Aminotransferase (ALT/SGPT) 35, Alkaline Phosphatase 46, Total Protein 6.7, Albumin 4.1 Patient resulted labs reviewed. Discussion & Recommendations Discharge Planning: <30 minutes discharge planning Discharge Home Medications: Active Scripts Active Lisinopril 5 Mg Tablet 5 Mg PO DAILY Fish Oil 1,000 mg Capsule ([place] 3 Polyunsat Fatty Acids) 1,000 Mg Cap 1,000 Mg PO BID WITH MEALS Atorvastatin Calcium 20 Mg Tablet 20 Mg PO HS Brilinta (Ticagrelor) 90 Mg Tablet 90 Mg PO BID Reported Hydrocodone/Acetaminophen 5/325mg Tablet (Acetaminophen/Hydrocodone Bitart) 1 Tab Tab 1 Tab PO Q6H PRN Miralax (Polyethylene Glycol 3350) 17 Gm Powd.pack 17 Gm PO DAILY PRN Colace (Docusate Sodium) 100 Mg Capsule 100 Mg PO DAILY PRN Fluticasone Propionate 16 Gm Shade.susp 1 Shade NS BID PRN Mucinex (Guaifenesin) 600 Mg Tab.er.12h 600 Mg PO BID PRN Benadryl (Diphenhydramine HCl) 25 Mg Capsule 50 Mg PO HS PRN Benadryl (Diphenhydramine HCl) 25 Mg Capsule 25 Mg PO 1200 PRN Vaseline (Petrolatum,White) 18 Ml Jelly.ml. TP BID PRN Loratadine 10 Mg Tablet 10 Mg PO DAILY Multivitamins (Multivitamin) 1 Each Capsule 1 Cap PO DAILY Tylenol Extra Strength (Acetaminophen) 500 Mg Tablet 500-1,000 Mg PO TID PRN Aspirin EC (Aspirin) 81 Mg Tablet.dr 81 Mg PO DAILY Symbicort 160-4.5 Mcg Inhaler (Budesonide/Formoterol Fumarate) 10.2 Gm Hfa.aer.ad 2 Puff INH BID LAST FILLED 6-3-18 Ventolin Hfa (Albuterol Sulfate) 18 Gm Hfa.aer.ad 2 Puff INH Q4H PRN Nitroglycerin 0.4 Mg Tab.subl 0.4 Mg SL UD PRN Trazodone HCl 100 Mg Tablet 150 Mg PO HS TAKES 1 & 1/2 (100MG) TABLET Alendronate Sodium 5 Mg Tablet 5 Mg PO DAILY Metoprolol Tartrate 50 Mg Tablet 50 Mg PO BID Linzess (Linaclotide) 145 Mcg Capsule 145 Mcg PO DAILY Esomeprazole Magnesium 40 Mg Capsule.dr 40 Mg PO DAILY Losartan Potassium 50 Mg Tablet 50 Mg PO BID Hydrochlorothiazide 25 Mg Tablet 25 Mg PO BID Citalopram HBr (Citalopram Hydrobromide) 40 Mg Tablet 40 Mg PO DAILY Instructions to patient/family Please see electronic discharge instructions given to patient. Clinical Quality Measures DVT/VTE Risk/Contraindication: Risk Factor Score Per Nursin RFS Level Per Nursing on Admit: 4+=Very High Problem Qualifiers (1) CAD (coronary artery disease): Coronary Disease-Associated Artery/Lesion type: [place] artery [place] vs. transplanted heart: [place] heart Associated angina: with unstable angina Qualified Codes: I25.110 - Atherosclerotic heart disease of [place] coronary artery with unstable angina pectoris (2) Obesity: Obesity type: due to excess calories Obesity classification: adult class 1 ( BMI 30 - 34.9) Serious obesity comorbidity presence: with serious comorbidity Body mass index: BMI 33.0-33.9 Qualified Codes: E66.09 - Other obesity due to excess calories; Z68.33 - Body mass index (bmi) 33.0-33.9, adult SHERRY CARRASCO DO Feb 06, 2018 11:32
--- OUTSIDE RECORDS SUMMARY | 2018-02-07 18:40 | XMS REPORT ---
Author Author Rogelio Prado Organization [facility] Address [address], [facility] [address] [place], [place] [id number] Care Team Providers Care [employer] Associate Name Role Phone Flushing, Rogelio Unavailable PROBLEMS Type Condition ICD9-CM Code FYY54-UM Code Onset Dates Condition Status SNOMED Code Problem Nocturnal hypoxia G47.34 Active 512721747 Problem Acute sinusitis, unspecified J01.90 Active 60265907 Problem Chronic sinusitis, unspecified J32.9 Active 738312504 Problem Unspecified constipation K59.00 Active 60333686 Problem Episode of recurrent major depressive disorder, unspecified depression episode severity F33.9 Active 665440996 Problem Arthralgia 719.40 Active 81329219 Problem Obstructive sleep apnea syndrome G47.33 Active 88867790 Problem Gastritis without bleeding, unspecified chronicity, unspecified gastritis type K29.70 Active 0662758 Problem Myalgia 729.1 Active 03300245 Problem BMI 35.0-35.9,adult Z68.35 Active 211072414 Problem Hypertension I10 Active 31120424 Problem Postmenopausal Z78.0 Active 03360208 Problem Hyperlipidemia E78.5 Active 60284105 Problem COPD (chronic obstructive pulmonary disease) J44.9 Active 22364682 Problem Angina pectoris I20.9 Active 101355898 Problem Constipation K59.00 Active 44258682 Problem Intellectual disability F79 Active 59410314 Problem COPD (chronic obstructive pulmonary disease) with acute bronchitis J44.0 Active 839512145708926 Problem COPD exacerbation J44.1 Active 072274691 Problem Closed fracture of one rib of right side with routine healing, subsequent encounter S22.31XD Active 46367836 ALLERGIES No Information ENCOUNTERS Encounter Location Date Diagnosis [facility] [address], [address] [place], [place] [id number] Aug, [facility] [address], [address] [place], [place] [id number] Apr, [facility] [address], [address] [place] [id number] Jan, [facility] [address] [place], [place] [address] Jan, [facility] [address] [place] [address] Jan, [facility] [address] [place] [address] Jan, Depression, unspecified depression type F32.9 [facility] [address] [place] [id number] Jan, [facility] [address] [place] [address] Jan, [facility] [address], [address] [place] [id number] Jan, [facility] [address], [address] [place] [address] Jan, [facility] [address] [place] [address] Jan, COPD (chronic obstructive pulmonary disease) J44.9 ; Hypertension I10 and Arthralgia, unspecified joint M25.50 [facility] [address], [address] [place] [address] Jan, Constipation K59.00 [facility] [address], [address] [place] [address] Dec, Acute cystitis without hematuria N30.00 ; Abdominal cramping R10.9 and Unspecified constipation K59.00 [facility] [address], [address] [place], [place] [address] Dec, [facility] [address], [address] [place] [address] Dec, [facility] [address], [address] [place], [place] [address] Dec, [facility] [address] [place], [place] [address] Dec, Pain with urination R30.9 [facility] [address] [place] [id number] Dec, [facility] [address] [place] [address] Dec, [facility] [address], [address] [place] [address] Nov, COPD (chronic obstructive pulmonary disease) J44.9 ; Hypertension I10 and Vaginal discharge N89.8 [facility] [address] [place] [id number] Nov, [facility] [address] [place] [address] Nov, COPD (chronic obstructive pulmonary disease) J44.9 ; Angina pectoris I20.9 ; Nocturnal hypoxia G47.34 and Hypertension I10 [facility] [address] [place] [id number] Nov, [facility] [address] [place] [address] October, [facility] [address] [place] [id number] October, [facility] [address] [place] [id number] October, [facility] [address], [address] [place] [address] October, Hypertension I10 ; COPD (chronic obstructive pulmonary disease) J44.9 ; Hyperlipidemia E78.5 ; COPD exacerbation J44.1 ; Episode of recurrent major depressive disorder, unspecified depression episode severity F33.9 and BMI 35.0- 35.9,adult Z68.35 [facility] [address] [place] [id number] October, [facility] [address] [place] [id number] Sep, [facility] [address] [place] [address] Sep, [facility] [address] [place] [address] Sep, Hypertension I10 ; COPD (chronic obstructive pulmonary disease) J44.9 ; Nocturnal hypoxia G47.34 and Obstructive sleep apnea syndrome G47.33 [facility] [address] [place] [address] Sep, [facility] [address] [place] [address] Sep, [facility] [address] [place] [address] Aug, [facility] [address] [place] [address] Aug, [facility] [address] [place] [address] Aug, Encounter for screening mammogram for malignant neoplasm of breast Z12.31 ; Tinnitus of right ear H93.11 and Obstructive sleep apnea G47.33 [facility] [address] [place] [id number] Aug, [facility] [address] [place] [address] Aug, Encounter for Medicare annual wellness exam Z00.00 and Advanced directives , counseling/discussion Z71.89 [facility] [address] [place], [place] [id number] Jul, [facility] [address] [place] [address] Jul, [facility] [address] [place] [address] Jul, [facility] [address] [place], [place] [id number] Jul, Right sided abdominal pain R10.9 ; Hypertension I10 ; COPD (chronic obstructive pulmonary disease) J44.9 and Hyperlipidemia E78.5 [facility] [address] [place] [address] Jul, [facility] [address] [place], [place] [address] Jul, [facility] [address] [place] [address] Jul, Acute gastritis without hemorrhage, unspecified gastritis type K29.00 ; Diarrhea, unspecified type R19.7 ; Hypertension I10 ; COPD (chronic obstructive pulmonary disease) J44.9 and Hyperlipidemia E78.5 [facility] [address] [place] [address] Jul, [facility] [address] [place], [place] [address] Jun, Acute lower respiratory infection J22 ; Other fatigue R53.83 and History of influenza Z87.09 [facility] [address] [place], [place] [id number] Jun, [facility] [address] [place], [place] [address] Jun, [facility] [address] [place] [address] Jun, Acute lower respiratory infection J22 ; Other fatigue R53.83 and History of influenza Z87.09 [facility] [address] [place] [address] Jun, [facility] [address] [place] [address] Jun, [facility] [address] [place] [address] Jun, [facility] [address] [place] [address] Jun, [facility] [address] [place] [address] Jun, [facility] [address] [place], [place] [address] Jun, Acute pain of left shoulder M25.512 [facility] [address] [place], [place] [address] Jun, Acute pain of left shoulder M25.512 ; Gastritis without bleeding, unspecified chronicity, unspecified gastritis type K29.70 ; Hypertension I10 ; COPD (chronic obstructive pulmonary disease) J44.9 and Hyperlipidemia E78.5 [facility] [address] [place], [place] [address] Jun, [facility] [address] [place] [address] Jun, [facility] [address] [place] [address] May, [facility] [address] [place] [address] May, Acute pain of left shoulder M25.512 ; Intellectual disability F79 and Closed fracture of one rib of right side with routine healing, subsequent encounter S22.31XD [facility] [address] [place] [address] May, [facility] [address] [place] [address] May, [facility] [address] [place] [address] May, [facility] [address] [place], [place] [address] May, Acute bronchitis, unspecified organism J20.9 ; Hypertension I10 ; COPD ( chronic obstructive pulmonary disease) J44.9 ; Hyperlipidemia E78.5 ; Nocturnal hypoxia G47.34 and Obstructive sleep apnea syndrome G47.33 [facility] [address] [place], [place] [address] Apr, Pain with urination R30.9 ; Hypertension I10 ; COPD (chronic obstructive pulmonary disease) J44.9 ; Hyperlipidemia E78.5 and Acute bronchitis, unspecified organism J20.9 [facility] [address] [place], [place] [address] Apr, Hypertension I10 [facility] [address] [place] [address] Apr, Acute sinusitis, unspecified J01.90 [facility] [address] [place], [place] [address] Apr, [facility] [address] [place] [address] Mar, [facility] [address], [address] [place], [place] [id number] Mar, Other specified bacterial agents as the cause of diseases classified elsewhere B96.89 and Acute sinusitis, unspecified J01.90 [facility] [address] [place], [place] [address] Mar, Closed fracture of one rib of right side with routine healing, subsequent encounter S22.31XD [facility] [address], [address] [place], [place] [address] Mar, [facility] [address] [place], [place] [address] Mar, COPD (chronic obstructive pulmonary disease) J44.9 ; Closed fracture of one rib of right side with routine healing, subsequent encounter S22.31XD ; Hypertension I10 ; Constipation K59.00 ; Angina pectoris I20.9 ; Depression, unspecified depression type F32.9 and Left ear pain H92.02 [facility] [address] [place], [place] [id number] Mar, Elevated glucose R73.09 [facility] [address] [place] [address] Mar, [facility] [address] [place] [address] Mar, Left-sided chest wall pain R07.89 and Hypertension I10 [facility] [address] [place], [place] [address] Feb, [facility] [address] [place], [place] [address] Feb, Hypertension I10 [facility] [address] [place] [address] Feb, Closed fracture of one rib of right side, initial encounter S22.31XA ; Intellectual disability F79 ; COPD (chronic obstructive pulmonary disease) J44.9 ; Hyperlipidemia E78.5 and Hypertension I10 [facility] [address] [place], [place] [address] Feb, [facility] [address] [place] [address] Feb, Dysuria R30.0 [facility] [address] [place], [place] [address] Jan, Closed fracture of one rib of right side, initial encounter S22.31XA [facility] [address] [place], [place] [address] Jan, [facility] [address] [place] [address] Jan, [facility] [address] [place] [address] Jan, Contusion of left side of back, initial encounter S20.222A [facility] [address] [place] [address] Jan, [facility] [address] [place] [address] Dec, [facility] [address] [place] [address] Dec, [facility] [address] [place] [address] Dec, COPD (chronic obstructive pulmonary disease) J44.9 and Hypertension I10 [facility] [address] [place] [address] Dec, [facility] [address] [place] [address] Dec, [facility] [address] [place] [address] Dec, Skin irritation R23.8 [facility] [address] [place] [address] Dec, [facility] [address] [place] [address] Dec, [facility] [address] [place] [address] Dec, [facility] [address] [place] [address] Dec, [facility] [address] [place] [address] October, Dysuria R30.0 and Pain of left calf M79.662 [facility] [address] [place] [address] October, Pain of right great toe M79.674 and Overgrown toenails L60.2 [facility] [address] [place] [address] Sep, [facility] [address] [place] [address] Sep, [facility] [address] [place] [address] Sep, Pain with urination R30.9 ; Abdominal pain, unspecified location R10.9 and Loose stools R19.5 [facility] [address] [place] [address] Sep, Hypertension I10 [facility] [address] [place] [address] Sep, [facility] [address] [place] [address] Sep, Acute cystitis with hematuria N30.01 [facility] [address] [place] [address] Sep, [facility] [address] [place] [address] Sep, Urinary frequency R35.0 [facility] [address] [place], [place] [address] Aug, [facility] [address] [place] [address] Aug, Screening for breast cancer Z12.39 [facility] [address] [place] [address] Aug, [facility] [address] [place] [address] Aug, [facility] [address] [place] [address] Aug, [facility] [address] [place], [place] [address] Aug, [facility] [address] [place] [address] Aug, [facility] [address] [place] [address] Aug, [facility] [address] [place] [address] Aug, [facility] [address] [place] [id number] Aug, [facility] [address] [place] [address] Jul, Dysuria R30.0 [facility] [address] [place], [place] [address] Jul, Chest wall pain R07.89 and Myofascial pain M79.1 [facility] [address] [place] [address] Jul, [facility] [address] [place] [address] Jul, Depression, unspecified depression type F32.9 ; Chronic obstructive pulmonary disease, unspecified COPD type J44.9 ; Hypertension I10 ; Angina pectoris I20.9 and Costochondritis M94.0 [facility] [address] [place], [place] [address] Jun, Acute non-recurrent maxillary sinusitis J01.00 [facility] [address] [place], [place] [id number] Jun, [facility] [address] [place], [place] [address] Jun, [facility] [address] [place] [address] Jun, [facility] [address] [place] [address] Jun, [facility] [address] [place] [address] Jun, [facility] [address] [place], [place] [address] Jun, Left-sided chest wall pain R07.89 and Cough due to bronchospasm J98.01 [facility] [address] [place], [place] [address] Jun, [facility] [address] [place], [place] [address] May, [facility] [address] [place] [address] May, Left-sided chest wall pain R07.89 [facility] [address] [place] [address] May, Left-sided chest wall pain R07.89 and Cough due to bronchospasm J98.01 [facility] [address] [place], [place] [address] May, [facility] [address] [place] [address] May, Encounter for Medicare annual wellness exam Z00.00 ; Advanced directives, counseling/discussion Z71.89 ; Screening for osteoporosis Z13.820 ; Bilateral hearing loss, unspecified hearing loss type H91.93 ; Intellectual disability F79 ; COPD (chronic obstructive pulmonary disease) J44.9 ; Postmenopausal Z78.0 ; Hypertension I10 ; Hyperlipidemia E78.5 ; Constipation K59.00 and Angina pectoris I20.9 [facility] [address] [place], [place] [address] May, [facility] [address] [place], [place] [id number] May, Left-sided chest wall pain R07.89 and Chest wall contusion, left, initial encounter S20.212A [facility] [address] [place], [place] [address] May, Dog bite, subsequent encounter W54.0XXD [facility] [address] [place] [address] May, Open bite of right hand, initial encounter S61.451A and Bitten by dog, initial encounter W54.0XXA [facility] [address], [address] [place], [place] [id number] May, [facility] [address], [address] [place], [place] [id number] May, [facility] [address], [address] [place] [address] Apr, Chest congestion R09.89 ; COPD exacerbation J44.1 and Dermatitis L30.9 [facility] [address], [address] [place], [place] [address] Apr, Secondary infection of skin L08.89 and Keratotic lesion L57.0 [facility] [address], [address] [place], [place] [id number] Mar, Hypertension I10 ; Bronchitis J40 and Cough R05 [facility] [address], [address] [place], [place] [id number] Feb, [facility] [address], [address] [place] [address] Feb, Skin tag L91.[address] [place], [place] [id number] Dec, Dysuria R30.0 and Vaginitis N76.0 [facility] [address], [address] [place], [place] [address] Dec, Constipation K59.00 ; Hypertension I10 ; Bronchitis J40 ; Post-tussive emesis R11.10 and Cough R05 [facility] [address], [address] [place], [place] [id number] Dec, [facility] [address] [place], [place] [address] Nov, Constipation K59.00 and Bronchitis J40 [facility] [address] [place], [place] [address] Nov, [facility] [address] [place] [id number] October, Dysuria R30.0 [facility] [address], [address] [place] [address] October, Urinary frequency R35.0 and UTI (urinary tract infection) N39.0 [facility] [address], [address] [place], [place] [address] Sep, Intellectual disability F79 ; COPD (chronic obstructive pulmonary disease ) J44.9 ; Postmenopausal Z78.0 ; Hypertension I10 and Hyperlipidemia E78.5 [facility] [address], [address] [place], [place] [address] Aug, Pain with urination R30.9 ; Wrist pain, left M25.532 and Pain in scapula M89.8X1 [facility] [address], [address] [place], [place] [id number] Jul, Pain with urination R30.9 and Vaginitis N76.0 [facility] [address], [address] [place], [place] [address] Jul, Screening for breast cancer Z12.39 [facility] [address], [address] [place], [place] [address] Jul, Acute upper respiratory infection, unspecified J06.9 and Other viral agents as the cause of diseases classified elsewhere B97.[address], [address] [place], [place] [id number] Jun, Cellulitis L03.[address] [place], [place] [address] Jun, Gastritis 535.50 ; URI (upper respiratory infection) J06.9 and Ingrown toenail L60.0 [facility] [address] [place], [place] [id number] Apr, Gastritis 535.50 and Oral lesion K13.[address], [address] [place], [place] [address] Mar, Dysuria R30.0 and Pain of right scapula M89.8X1 [facility] [address] [place], [place] [id number] Mar, [facility] [address] [place] [address] Mar, [facility] [address], [address] [place], [place] [address] Feb, Right knee pain 719.46 [facility] [address] [place], [place] [address] Feb, [facility] [address] [place], [place] [address] Feb, Right knee pain 719.46 [facility] [address] [place], [place] [address] Jan, Allergic rhinitis 477.9 and Cough 786.2 [facility] [address] [place], [place] [address] Jan, [facility] [address] [place], [place] [address] Jan, Insect bites 919.4 [facility] [address] [place], [place] [address] Jan, Fatigue 780.79 ; Gastritis 535.50 and Wound abscess 879.9 [facility] [address] [place], [place] [address] Dec, [facility] [address] [place], [place] [address] Nov, Fatigue 780.79 ; Weakness generalized 780.79 and Gastritis 535.50 [facility] [address] [place], [place] [address] Nov, [facility] [address] [place], [place] [address] October, [facility] [address] [place] [address] October, [facility] [address] [place], [place] [address] October, [facility] [address] [place] [address] October, [facility] [address] [place] [address] Sep, [facility] [address] [place] [address] Sep, [facility] [address] [place] [address] Sep, [facility] [address] [place] [address] Aug, [facility] [address] [place] [address] Aug, [facility] [address] [place] [address] Jul, [facility] [address] [place] [address] Jul, [facility] [address] [place], [place] [id number] May, [facility] [address] [place] [id number] May, [facility] [address] [place] [id number] Apr, [facility] [address] [place] [address] Mar, [facility] [address] [place] [address] Mar, [facility] [address] [place] [address] Feb, [facility] [address] [place] [address] Jan, [facility] [address] [place] [address] Jan, [facility] [address] [place] [address] Nov, [facility] [address] [place] [address] October, [facility] [address] [place] [id number] October, [facility] [address] [place] [address] Sep, [facility] [address] [place] [address] Aug, [facility] [address] [place] [id number] Jul, [facility] [address] [place] [address] Jun, [facility] [address] [place] [id number] May, [facility] [address] [place] [address] Mar, [facility] [address] [place], [place] [address] Mar, [facility] [address] [place] [address] Jan, [facility] [address] [place] [address] Dec, [facility] [address] [place], [place] [address] Nov, [facility] [address] [place] [address] October, [facility] [address] [place] [address] Aug, [facility] [address] [place] [address] Jul, [facility] [address] [place] [address] Jun, [facility] [address] [place] [address] Jun, [facility] [address] [place] [address] Jun, [facility] [address] [place] [address] May, [facility] [address] [place] [address] Apr, [facility] [address] [place] [address] Mar, [facility] [address] [place] [place] [id number] Mar, [facility] [address] [place], [place] [id number] Mar, IMMUNIZATIONS No Known Immunizations SOCIAL HISTORY Never Assessed REASON FOR VISIT HEMALATHA visit PLAN OF CARE VITAL SIGNS MEDICATIONS Unknown [...]
--- OUTSIDE RECORDS SUMMARY | 2018-02-07 18:41 | XMS REPORT ---
Author Author Rogelio Prado Organization [facility] Address [address], [facility] [address] [place], [place] [id number] Care Team Providers Care Non Linear Editor Name Role Phone Stratton, Rogelio Unavailable PROBLEMS Type Condition ICD9-CM Code [id number] Code Onset Dates Condition Status SNOMED Code Problem Nocturnal hypoxia G47.34 Active 951616896 Problem Acute sinusitis, unspecified J01.90 Active 92435192 Problem Chronic sinusitis, unspecified J32.9 Active 866210288 Problem Unspecified constipation K59.00 Active 79539037 Problem Episode of recurrent major depressive disorder, unspecified depression episode severity F33.9 Active 354543703 Problem Arthralgia 719.40 Active 77815662 Problem Obstructive sleep apnea syndrome G47.33 Active 83642174 Problem Gastritis without bleeding, unspecified chronicity, unspecified gastritis type K29.70 Active 0569394 Problem Myalgia 729.1 Active 30932766 Problem BMI 35.0-35.9,adult Z68.35 Active 418905442 Problem Hypertension I10 Active 54596692 Problem Postmenopausal Z78.0 Active 79527367 Problem Hyperlipidemia E78.5 Active 57895447 Problem COPD (chronic obstructive pulmonary disease) J44.9 Active 99285247 Problem Angina pectoris I20.9 Active 296259817 Problem Constipation K59.00 Active 12892596 Problem Intellectual disability F79 Active 35886160 Problem COPD (chronic obstructive pulmonary disease) with acute bronchitis J44.0 Active [id number] Problem COPD exacerbation J44.1 Active 649187957 Problem Closed fracture of one rib of right side with routine healing, subsequent encounter S22.31XD Active 97150119 ALLERGIES No Information ENCOUNTERS Encounter Location Date Diagnosis [facility] [address], [address] [place], [place] [id number] Aug, [facility] [address], [address] [place], [place] [id number] Apr, [facility] [address], [address] [place] [id number] Jan, Depression, unspecified depression type F32.9 [facility] [address] [place] [id number] Jan, [facility] [address] [place] [id number] Jan, [facility] [address] [place] [id number] Jan, [facility] [address] [place] [id number] Jan, [facility] [address] [place] [id number] Jan, COPD (chronic obstructive pulmonary disease) J44.9 ; Hypertension I10 and Arthralgia, unspecified joint M25.50 [facility] [address], [address] [place], [place] [id number] Jan, Constipation K59.00 [facility] [address], [address] [place] [id number] Dec, Acute cystitis without hematuria N30.00 ; Abdominal cramping R10.9 and Unspecified constipation K59.00 [facility] [address] [place] [id number] Dec, [facility] [address] [place] [id number] Dec, [facility] [address] [place] [id number] Dec, [facility] [address], [address] [place] [id number] Dec, Pain with urination R30.9 [facility] [address] [place] [id number] Dec, [facility] [address] [place] [address] Dec, [facility] [address] [place] [id number] Nov, COPD (chronic obstructive pulmonary disease) J44.9 ; Hypertension I10 and Vaginal discharge N89.8 [facility] [address] [place] [id number] Nov, [facility] [address] [place] [id number] Nov, COPD (chronic obstructive pulmonary disease) J44.9 ; Angina pectoris I20.9 ; Nocturnal hypoxia G47.34 and Hypertension I10 [facility] [address] [place] [id number] Nov, [facility] [address] [place] [id number] October, [facility] [address] [place] [id number] October, [facility] [address] [place] [id number] October, [facility] [address] [place] [id number] October, Hypertension I10 ; COPD (chronic obstructive pulmonary disease) J44.9 ; Hyperlipidemia E78.5 ; COPD exacerbation J44.1 ; Episode of recurrent major depressive disorder, unspecified depression episode severity F33.9 and BMI 35.0- 35.9,adult Z68.35 [facility] [address] [place], [place] [id number] October, [facility] [address] [place] [id number] Sep, [facility] [address] [place] [id number] Sep, [facility] [address] [place] [id number] Sep, Hypertension I10 ; COPD (chronic obstructive pulmonary disease) J44.9 ; Nocturnal hypoxia G47.34 and Obstructive sleep apnea syndrome G47.33 [facility] [address] [place] [id number] Sep, [facility] [address] [place] [id number] Sep, [facility] [address] [place] [id number] Aug, [facility] [address] [place] [id number] Aug, [facility] [address] [place] [id number] Aug, Encounter for screening mammogram for malignant neoplasm of breast Z12.31 ; Tinnitus of right ear H93.11 and Obstructive sleep apnea G47.33 [facility] [address] [place] [address] Aug, [facility] [address] [place] [id number] Aug, Encounter for Medicare annual wellness exam Z00.00 and Advanced directives , counseling/discussion Z71.89 [facility] [address] [place] [id number] Jul, [facility] [address] [place] [id number] Jul, [facility] [address] [place] [id number] Jul, [facility] [address] [place] [id number] Jul, Right sided abdominal pain R10.9 ; Hypertension I10 ; COPD (chronic obstructive pulmonary disease) J44.9 and Hyperlipidemia E78.5 [facility] [address] [place] [id number] Jul, [facility] [address] [place] [address] Jul, [facility] [address] [place] [id number] Jul, Acute gastritis without hemorrhage, unspecified gastritis type K29.00 ; Diarrhea, unspecified type R19.7 ; Hypertension I10 ; COPD (chronic obstructive pulmonary disease) J44.9 and Hyperlipidemia E78.5 [facility] [address] [place] [id number] Jul, [facility] [address] [place] [id number] Jun, Acute lower respiratory infection J22 ; Other fatigue R53.83 and History of influenza Z87.09 [facility] [address] [place] [id number] Jun, [facility] [address] [place] [id number] Jun, [facility] [address] [place] [address] Jun, Acute lower respiratory infection J22 ; Other fatigue R53.83 and History of influenza Z87.09 [facility] [address] [place] [id number] Jun, [facility] [address] [place] [id number] Jun, [facility] [address] [place] [id number] Jun, [facility] [address] [place] [id number] Jun, [facility] [address] [place] [id number] Jun, [facility] [address] [place] [address] Jun, Acute pain of left shoulder M25.512 [facility] [address] [place] [id number] Jun, Acute pain of left shoulder M25.512 ; Gastritis without bleeding, unspecified chronicity, unspecified gastritis type K29.70 ; Hypertension I10 ; COPD (chronic obstructive pulmonary disease) J44.9 and Hyperlipidemia E78.5 [facility] [address] [place] [id number] Jun, [facility] [address] [place] [id number] Jun, [facility] [address] [place] [id number] May, [facility] [address] [place] [id number] May, Acute pain of left shoulder M25.512 ; Intellectual disability F79 and Closed fracture of one rib of right side with routine healing, subsequent encounter S22.31XD [facility] [address] [place] [id number] May, [facility] [address] [place] [id number] May, [facility] [address] [place] [id number] May, [facility] [address] [place] [id number] May, Acute bronchitis, unspecified organism J20.9 ; Hypertension I10 ; COPD ( chronic obstructive pulmonary disease) J44.9 ; Hyperlipidemia E78.5 ; Nocturnal hypoxia G47.34 and Obstructive sleep apnea syndrome G47.33 [facility] [address] [place], [place] [id number] Apr, Pain with urination R30.9 ; Hypertension I10 ; COPD (chronic obstructive pulmonary disease) J44.9 ; Hyperlipidemia E78.5 and Acute bronchitis, unspecified organism J20.9 [facility] [address] [place], [place] [id number] Apr, Hypertension I10 [facility] [address] [place] [id number] Apr, Acute sinusitis, unspecified J01.90 [facility] [address] [place] [address] Apr, [facility] [address] [place] [id number] Mar, [facility] [address] [place] [id number] Mar, Other specified bacterial agents as the cause of diseases classified elsewhere B96.89 and Acute sinusitis, unspecified J01.90 [facility] [address] [place] [id number] Mar, Closed fracture of one rib of right side with routine healing, subsequent encounter S22.31XD [facility] [address], [address] [place], [place] [id number] Mar, [facility] [address] [place] [id number] Mar, COPD (chronic obstructive pulmonary disease) J44.9 ; Closed fracture of one rib of right side with routine healing, subsequent encounter S22.31XD ; Hypertension I10 ; Constipation K59.00 ; Angina pectoris I20.9 ; Depression, unspecified depression type F32.9 and Left ear pain H92.02 [facility] [address] [place], [place] [id number] Mar, Elevated glucose R73.09 [facility] [address] [place], [place] [id number] Mar, [facility] [address], [address] [place], [place] [id number] Mar, Left-sided chest wall pain R07.89 and Hypertension I10 [facility] [address] [place], [place] [address] Feb, [facility] [address] [place] [id number] Feb, Hypertension I10 [facility] [address] [place], [place] [id number] Feb, Closed fracture of one rib of right side, initial encounter S22.31XA ; Intellectual disability F79 ; COPD (chronic obstructive pulmonary disease) J44.9 ; Hyperlipidemia E78.5 and Hypertension I10 [facility] [address] [place], [place] [id number] Feb, [facility] [address] [place] [address] Feb, Dysuria R30.0 [facility] [address] [place] [id number] Jan, Closed fracture of one rib of right side, initial encounter S22.31XA [facility] [address] [place], [place] [id number] Jan, [facility] [address] [place] [address] Jan, [facility] [address] [place] [address] Jan, Contusion of left side of back, initial encounter S20.222A [facility] [address] [place] [address] Jan, [facility] [address] [place] [id number] Dec, [facility] [address] [place] [id number] Dec, [facility] [address] [place] [id number] Dec, COPD (chronic obstructive pulmonary disease) J44.9 and Hypertension I10 [facility] [address] [place] [address] Dec, [facility] [address] [place] [id number] Dec, [facility] [address] [place] [address] Dec, Skin irritation R23.8 [facility] [address] [place] [id number] Dec, [facility] [address] [place] [address] Dec, [facility] [address] [place] [id number] Dec, [facility] [address] [place] [id number] Dec, [facility] [address] [place] [id number] October, Dysuria R30.0 and Pain of left calf M79.662 [facility] [address] [place] [id number] October, Pain of right great toe M79.674 and Overgrown toenails L60.2 [facility] [address] [place] [id number] Sep, [facility] [address] [place] [id number] Sep, [facility] [address] [place] [address] Sep, Pain with urination R30.9 ; Abdominal pain, unspecified location R10.9 and Loose stools R19.5 [facility] [address] [place] [id number] Sep, Hypertension I10 [facility] [address] [place] [id number] Sep, [facility] [address] [place] [address] Sep, Acute cystitis with hematuria N30.01 [facility] [address] [place] [address] Sep, [facility] [address] [place] [address] Sep, Urinary frequency R35.0 [facility] [address] [place], [place] [id number] Aug, [facility] [address] [place] [address] Aug, Screening for breast cancer Z12.39 [facility] [address] [place], [place] [id number] Aug, [facility] [address] [place] [address] Aug, [facility] [address] [place] [address] Aug, [facility] [address] [place] [address] Aug, [facility] [address] [place] [address] Aug, [facility] [address] [place], [place] [address] Aug, [facility] [address] [place] [address] Aug, [facility] [address] [place] [id number] Aug, [facility] [address] [place] [id number] Jul, Dysuria R30.0 [facility] [address] [place], [place] [id number] Jul, Chest wall pain R07.89 and Myofascial pain M79.1 [facility] [address] [place] [id number] Jul, [facility] [address] [place] [address] Jul, Depression, unspecified depression type F32.9 ; Chronic obstructive pulmonary disease, unspecified COPD type J44.9 ; Hypertension I10 ; Angina pectoris I20.9 and Costochondritis M94.0 [facility] [address] [place], [place] [address] Jun, Acute non-recurrent maxillary sinusitis J01.00 [facility] [address] [place] [id number] Jun, [facility] [address] [place] [id number] Jun, [facility] [address] [place] [address] Jun, [facility] [address] [place] [address] Jun, [facility] [address] [place] [address] Jun, [facility] [address] [place] [address] Jun, Left-sided chest wall pain R07.89 and Cough due to bronchospasm J98.01 [facility] [address] [place], [place] [id number] Jun, [facility] [address] [place] [address] May, [facility] [address] [place] [id number] May, Left-sided chest wall pain R07.89 [facility] [address] [place], [place] [address] May, Left-sided chest wall pain R07.89 and Cough due to bronchospasm J98.01 [facility] [address] [place], [place] [address] May, [facility] [address], [address] [place], [place] [address] May, Encounter for Medicare annual wellness exam Z00.00 ; Advanced directives, counseling/discussion Z71.89 ; Screening for osteoporosis Z13.820 ; Bilateral hearing loss, unspecified hearing loss type H91.93 ; Intellectual disability F79 ; COPD (chronic obstructive pulmonary disease) J44.9 ; Postmenopausal Z78.0 ; Hypertension I10 ; Hyperlipidemia E78.5 ; Constipation K59.00 and Angina pectoris I20.[address] [place] [address] May, [facility] [address], [address] [place] [id number] May, Left-sided chest wall pain R07.89 and Chest wall contusion, left, initial encounter S20.212A [address], [address] [place], [place] [id number] May, Dog bite, subsequent encounter W54.0XXD [address], [address] [place], [place] [address] May, Open bite of right hand, initial encounter S61.451A and Bitten by dog, initial encounter W54.0XXA [address], [address] [place], [place] [address] May, [place] [address] [place], [place] [address] May, [facility] [address] [place] [id number] Apr, Chest congestion R09.89 ; COPD exacerbation J44.1 and Dermatitis L30.9 [facility] [address], [address] [place], [place] [address] Apr, Secondary infection of skin L08.89 and Keratotic lesion L57.0 [facility] [address] [place], [place] [id number] Mar, Hypertension I10 ; Bronchitis J40 and Cough R05 [facility] [address] [place], [place] [address] Feb, [facility] [address] [place] [id number] Feb, Skin tag L91.8 [facility] [address] [place], [place] [id number] Dec, Dysuria R30.0 and Vaginitis N76.0 [facility] [address], [address] [place], [place] [address] Dec, Constipation K59.00 ; Hypertension I10 ; Bronchitis J40 ; Post-tussive emesis R11.10 and Cough R05 [facility] [address] [place] [id number] Dec, [facility] [address] [place] [id number] Nov, Constipation K59.00 and Bronchitis J40 [facility] [address] [place] [address] Nov, [facility] [address] [place] [address] October, Dysuria R30.0 [facility] [address] [place] [id number] October, Urinary frequency R35.0 and UTI (urinary tract infection) N39.0 [facility] [address] [place] [address] Sep, Intellectual disability F79 ; COPD (chronic obstructive pulmonary disease ) J44.9 ; Postmenopausal Z78.0 ; Hypertension I10 and Hyperlipidemia E78.5 [facility] [address] [place], [place] [address] Aug, Pain with urination R30.9 ; Wrist pain, left M25.532 and Pain in scapula M89.8X1 [facility] [address], [address] [place], [place] [id number] Jul, Pain with urination R30.9 and Vaginitis N76.0 [facility] [address], [facility] [address] [place] [id number] Jul, Screening for breast cancer Z12.[address], [facility] [address] [place], [place] [address] Jul, Acute upper respiratory infection, unspecified J06.9 and Other viral agents as the cause of diseases classified elsewhere B97.[address], [address] [place], [place] [address] Jun, Cellulitis L03.[address] [place], [place] [id number] Jun, Gastritis 535.50 ; URI (upper respiratory infection) J06.9 and Ingrown toenail L60.[address], [address] [place], [place] [id number] Apr, Gastritis 535.50 and Oral lesion K13.[address], [facility] [address] [place], [place] [id number] Mar, Dysuria R30.0 and Pain of right scapula M89.8X1 [address], [facility] [address] [place], [place] [id number] Mar, [address], [facility] [address] [place], [place] [id number] Mar, [address], [facility] [address] [place], [place] [id number] Feb, Right knee pain 719.[address] [place], [place] [id number] Feb, [address], [address] [place], [place] [id number] Feb, Right knee pain 719.[address], [address] [place], [place] [address] Jan, Allergic rhinitis 477.9 and Cough 786.[address], [facility] [address] [place], [place] [address] Jan, [address], [facility] [address] [place], [place] [id number] Jan, Insect bites 919.[address] [place], [place] [address] Jan, Fatigue 780.79 ; Gastritis 535.50 and Wound abscess 879.[address] [place], [place] [id number] Dec, [facility] [address], [address] [place] [address] Nov, Fatigue 780.79 ; Weakness generalized 780.79 and Gastritis 535.50 [facility] [address] [place] [id number] Nov, [facility] [address] [place] [id number] October, [facility] [address] [place] [id number] October, [facility] [address] [place] [id number] October, [facility] [address] [place] [id number] October, [facility] [address] [place] [address] Sep, [facility] [address] [place] [address] Sep, [facility] [address] [place] [address] Sep, [facility] [address] [place] [id number] Aug, [facility] [address] [place] [address] Aug, [facility] [address] [place], [place] [id number] Jul, [facility] [address] [place] [id number] Jul, [facility] [address] [place], [place] [id number] May, [facility] [address] [place] [id number] May, [facility] [address] [place] [id number] Apr, [facility] [address] [place] [address] Mar, [facility] [address] [place] [id number] Mar, [facility] [address] [place] [address] Feb, [facility] [address] [place] [id number] Jan, [facility] [address] [place] [id number] Jan, [facility] [address] [place] [id number] Nov, [facility] [address] [place] [address] October, [facility] [address] [place] [id number] October, [place] [facility] [address] [place] [address] Sep, [place] [facility] [address] [place] [address] Aug, [place] [facility] [address] [place] [id number] Jul, [place] [facility] [address] [place] [address] Jun, [place] [facility] [address] [place] [id number] May, [place] [facility] [address] [place] [id number] Mar, [place] [facility] [address] [place] [id number] Mar, [place] [facility] [address], [address] [place] [id number] Jan, [place] [facility] [address] [place] [id number] Dec, [facility] [address] [place] [address] Nov, [facility] [address] [place] [id number] October, [facility] [address], [address] [place], [place] [id number] Aug, [facility] [address], [address] [place], [place] [id number] Jul, [facility] [address], [address] [place], [place] [id number] Jun, [facility] [address], [address] [place], [place] [id number] Jun, [facility] [address], [address] [place] [id number] Jun, [place] [facility] [address], [address] [place], [place] [id number] May, [facility] [address], [address] [place], [place] [id number] Apr, [facility] [address], [address] [place] [id number] Mar, [facility] [address], [address] [place], [place] [id number] Mar, [place] [facility] [address], [address] [place], [place] [id number] Mar, IMMUNIZATIONS No Known Immunizations SOCIAL HISTORY Never Assessed REASON FOR VISIT refill celexa PLAN OF CARE VITAL SIGNS MEDICATIONS Medication Instructions Dosage Frequency Start Date End Date Duration Status Celexa 40 MG Orally Once a day 1 tablet [...]
--- OUTSIDE RECORDS SUMMARY | 2018-02-07 19:00 | XMS REPORT | Continuity of Care Document ---
Author Author [facility] Organization [facility] Address Unknown Phone Unavailable Allergies Active Description Code Type Severity Reaction Onset Reported/Identified Relationship to Patient Clinical Status Yes ceftriaxone Drug Allergy N/A N/A Confirmed or Verified Yes No Known Drug Allergy Drug Allergy N/A N/A Confirmed but inactive Yes No Known Drug Allergies [id number] Miscellaneous Allergy Moderate N/A Yes PENICILLIN [id number] Drug Allergy Unknown N/A Yes PENICILLINS (CLASS) [id number] Drug Allergy Unknown N/A Yes ZITHROMAX [id number] Drug Allergy Unknown N/A Yes Penicillins [id number] N/A N/A Yes ROCEPHIN Drug Allergy Hives [...] As Directed <section xmlns="urn:hl7-org:v3" xmlns:xsi="http://www.3.org/2001/XMLSchema-instance"> <templateId root= "2.16.840.1.614547.10.20.22.2.5" /> <templateId root= "2.16.840.1.951811.10.20.22.4.3" /> <code codeSystemName="LOINC" codeSystem= "2.16.840.1.347099.6.1" code="29593-7" /> <title>Problems</title> <text> < table> <thead> <tr> [...] <td /> </tr> <tr> <td></td> <td>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, JACBO W</td> <td>D</td> <td>995.27</td> <td>DRUG ALLERGY NEC</td> <td [...] EPIGASTRI</td> <td /> </tr> <tr> <td>03/23/2015</td> <td>[facility]</td> <td>W</td> <td>296.35</td> <td>Major Depressive Disorder, Recurrent, In Partial Remission</td> <td /> </tr> <tr> <td>03/23/2015</td> <td>[facility]< /td> <td>W</td> <td>300.02</td> <td>Generalized Anxiety Disorder</td> <td /> </tr> <tr> <td></td> <td>[facility]</td> <td>W</td> <td>317</td> <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</td> <td [...] <td /> </tr> <tr> <td>05/25/2016 </td> <td>[facility]</td> <td>F</td> <td>R0789</ td> <td>Other chest pain</td> <td [...] <tr> <td>2016</td> <td>CISCO PRADO</td> <td>S</td> <td >Z79.1</td> <td>[facility] (current) use of non-steroidal anti- inflammatories (NSAID)</td> [...] <tr> <td>12/30/2016</td> <td>CISCO PRADO</td> <td>S</td> <td>Z79.899</td> <td>Other [facility] (current) drug therapy</td > <td /> </tr> [...] aftercare</td> <td /> </tr> <tr> <td>07/08/2017</td> <td>Laine MRELOS</td> <td>S</td> <td>M25.512</td> <td>Pain in left shoulder</td> <td [...] unspecified</td> <td /> </tr> <tr> <td>11/24/2017</td> <td>NORBERTO HUDOSN</td> <td>S</td> <td>R06.02</td> <td>Shortness of breath</td> <td /> [...] <entry typeCode="DRIV"> <act moodCode="EVN" classCode ="ACT"> <templateId root="2.16.840.1.862697.10..4.3" /> <id nullFlavor="UNK" /> <code codeSystem="2.16.840.1.529745.5.6" code="CONC" displayName="Concern" /> <statusCode code="completed" /> < effectiveTime> <low value="20110502" /> </effectiveTime> < entryRelationship typeCode="SUBJ"> <observation moodCode="EVN" classCode= "OBS"> <templateId root="2.16.840.1.115728.10..4.4" /> < id nullFlavor="UNK" /> <code codeSystem="2.16.840.1.411322.6.96" code= "942897929" displayName="Diagnosis" /> <statusCode code="completed" /> <value codeSystem="I9" xsi:type="CD" code="616.10" displayName= "VAGINITIS NOS" /> </observation> </entryRelationship> </act> </ entry> <entry typeCode="DRIV"> <act moodCode="EVN" classCode="ACT"> < templateId root="216.840.1.363547.10..22.4.3" /> <id nullFlavor="UNK" / > <code codeSystem="216.840.1.571606.5.6" code="CONC" displayName="Concern " /> <statusCode code="completed" /> <effectiveTime> <low value ="75130537" /> </effectiveTime> <entryRelationship typeCode="SUBJ"> <observation moodCode="EVN" classCode="OBS"> <templateId root= "16.840.1.539718.10.22.4.4" /> <id nullFlavor="UNK" /> < code codeSystem="216.840.1.287711.6.96" code="750292387" displayName="Diagnosis " /> <statusCode code="completed" /> <value codeSystem="I9" xsi:type="CD" code="300.00" displayName="ANXIETY STATE NOS" /> </ observation> </entryRelationship> </act> </entry> <entry typeCode= "DRIV"> <act moodCode="EVN" classCode="ACT"> <templateId root= "16.840.1.390620.10.2022.4.3" /> <id nullFlavor="UNK" /> <code codeSystem="216.840.1.813938.5.6" code="CONC" displayName="Concern" /> < statusCode code="completed" /> <effectiveTime> <low value="20110727 " /> </effectiveTime> <entryRelationship typeCode="SUBJ"> < observation moodCode="EVN" classCode="OBS"> <templateId root= "840.1.223427.10.22.4.4" /> <id nullFlavor="UNK" /> < code codeSystem="840.1.947407.6.96" code="962252369" displayName="Diagnosis " /> <statusCode code="completed" /> <value codeSystem="I9" xsi:type="CD" code="530.81" displayName="ESOPHAGEAL REFLUX" /> </ observation> </entryRelationship> </act> </entry> <entry typeCode= "DRIV"> <act moodCode="EVN" classCode="ACT"> <templateId root= "840.1.027518.10.22.4.3" /> <id nullFlavor="UNK" /> <code codeSystem="08.09.840.1.909383.5.6" code="CONC" displayName="Concern" /> < statusCode code="completed" /> <effectiveTime> <low value="20110727 " /> </effectiveTime> <entryRelationship typeCode="SUBJ"> < observation moodCode="EVN" classCode="OBS"> <templateId root= "840.1.150402.10.2022.4.4" /> <id nullFlavor="UNK" /> < code codeSystem="08.09.840.1.137584.6.96" code="033260312" displayName="Diagnosis " /> <statusCode code="completed" /> <value codeSystem="I9" xsi:type="CD" code="786.59" displayName="CHEST PAIN NEC" /> </observation > </entryRelationship> </act> </entry> <entry typeCode="DRIV"> < act moodCode="EVN" classCode="ACT"> <templateId root= "08.09.840.1.201889.10.20.22.4.3" /> <id nullFlavor="UNK" /> <code codeSystem="2.840.1.703314.5.6" code="CONC" displayName="Concern" /> < statusCode code="completed" /> <effectiveTime> <low value="20110727 " /> </effectiveTime> <entryRelationship typeCode="SUBJ"> < observation moodCode="EVN" classCode="OBS"> <templateId root= "08.09.840.1.695577.10..22.4.4" /> <id nullFlavor="UNK" /> < code codeSystem="2.840.1.738920.6.96" code="497595196" displayName="Diagnosis " /> <statusCode code="completed" /> <value codeSystem="I9" xsi:type="CD" code="789.06" displayName="ABDOMINAL PAIN EPIGASTRI" /> </ observation> </entryRelationship> </act> </entry> <entry typeCode= "DRIV"> <act moodCode="EVN" classCode="ACT"> <templateId root= "08.09.840.1.659432.10..22.4.3" /> <id nullFlavor="UNK" /> <code codeSystem="216.840.1.389043.5.6" code="CONC" displayName="Concern" /> < statusCode code="completed" /> <effectiveTime> <low value="20110808 " /> </effectiveTime> <entryRelationship typeCode="SUBJ"> < observation moodCode="EVN" classCode="OBS"> <templateId root= "08.09.840.1.648930.10..22.4.4" /> <id nullFlavor="UNK" /> < code codeSystem="840.1.706944.6.96" code="916829846" displayName="Diagnosis " /> <statusCode code="completed" /> <value codeSystem="I9" xsi:type="CD" code="300.00" displayName="ANXIETY STATE NOS" /> </ observation> </entryRelationship> </act> </entry> <entry typeCode= "DRIV"> <act moodCode="EVN" classCode="ACT"> <templateId root= "08.09.840.1.847946.10.20.22.4.3" /> <id nullFlavor="UNK" /> <code codeSystem="08.09.840.1.041550.5.6" code="CONC" displayName="Concern" /> < statusCode code="completed" /> <effectiveTime> <low value="85512387 " /> </effectiveTime> <entryRelationship typeCode="SUBJ"> < observation moodCode="EVN" classCode="OBS"> <templateId root= "08.09.840.1.593854.10.20.22.4.4" /> <id nullFlavor="UNK" /> < code codeSystem="08.09.840.1.799626.6.96" code="231440745" displayName="Diagnosis " /> <statusCode code="completed" /> <value codeSystem="I9" xsi:type="CD" code="401.9" displayName="HYPERTENSION NOS" /> </ observation> </entryRelationship> </act> </entry> <entry typeCode= "DRIV"> <act moodCode="EVN" classCode="ACT"> <templateId root= "840.1.630922.10...4.3" /> <id nullFlavor="UNK" /> <code codeSystem="840.1.443464.5.6" code="CONC" displayName="Concern" /> < statusCode code="completed" /> <effectiveTime> <low value="20110808 " /> </effectiveTime> <entryRelationship typeCode="SUBJ"> < observation moodCode="EVN" classCode="OBS"> <templateId root= "840.1.621944.04.12.22.4.4" /> <id nullFlavor="UNK" /> < code codeSystem="08.09.840.1.908427.6.96" code="754234209" displayName="Diagnosis " /> <statusCode code="completed" /> <value codeSystem="I9" xsi:type="CD" code="485" displayName="BRONCOPNEUMONIA ORG NOS" /> </ observation> </entryRelationship> </act> </entry> <entry typeCode= "DRIV"> <act moodCode="EVN" classCode="ACT"> <templateId root= "08.09.840.1.423970.10..4.3" /> <id nullFlavor="UNK" /> <code codeSystem="08.09.840.1.785655.5.6" code="CONC" displayName="Concern" /> < statusCode code="completed" /> <effectiveTime> <low value="20110808 " /> </effectiveTime> <entryRelationship typeCode="SUBJ"> < observation moodCode="EVN" classCode="OBS"> <templateId root= "08.09.840.1.126957...4.4" /> <id nullFlavor="UNK" /> < code codeSystem="216.840.1.386933.6.96" code="527432751" displayName="Diagnosis " /> <statusCode code="completed" /> <value codeSystem="I9" xsi:type="CD" code="530.81" displayName="ESOPHAGEAL REFLUX" /> </ observation> </entryRelationship> </act> </entry> <entry typeCode= "DRIV"> <act moodCode="EVN" classCode="ACT"> <templateId root= "2.16.840.1.402350.10..22.4.3" /> <id nullFlavor="UNK" /> <code codeSystem="2.16.840.1.221868.5.6" code="CONC" displayName="Concern" /> < statusCode code="completed" /> <effectiveTime> <low value="07171770 " /> </effectiveTime> <entryRelationship typeCode="SUBJ"> < observation moodCode="EVN" classCode="OBS"> <templateId root= "216.840.1.916282.10..22.4.4" /> <id nullFlavor="UNK" /> < code codeSystem="2.16.840.1.010197.6.96" code="805222453" displayName="Diagnosis " /> <statusCode code="completed" /> <value codeSystem="I9" xsi:type="CD" code="708.0" displayName="ALLERGIC URTICARIA" /> </ observation> </entryRelationship> </act> </entry> <entry typeCode= "DRIV"> <act moodCode="EVN" classCode="ACT"> <templateId root= "216.840.1.610317.10..22.4.3" /> <id nullFlavor="UNK" /> <code codeSystem="08.09.840.1.119121.5.6" code="CONC" displayName="Concern" /> < statusCode code="completed" /> <effectiveTime> <low value="20110808 " /> </effectiveTime> <entryRelationship typeCode="SUBJ"> < observation moodCode="EVN" classCode="OBS"> <templateId root= "840.1.874964...4.4" /> <id nullFlavor="UNK" /> < code codeSystem="840.1.444248.6.96" code="902100755" displayName="Diagnosis " /> <statusCode code="completed" /> <value codeSystem="I9" xsi:type="CD" code="995.27" displayName="DRUG ALLERGY NEC" /> </ observation> </entryRelationship> </act> </entry> <entry typeCode= "DRIV"> <act moodCode="EVN" classCode="ACT"> <templateId root= "840.1.465113.04.12.22.4.3" /> <id nullFlavor="UNK" /> <code codeSystem="840.1.519179.5.6" code="CONC" displayName="Concern" /> < statusCode code="completed" /> <effectiveTime> <low value="20110808 " /> </effectiveTime> <entryRelationship typeCode="SUBJ"> < observation moodCode="EVN" classCode="OBS"> <templateId root= "08.09.840.1.315307.04.12.22.4.4" /> <id nullFlavor="UNK" /> < code codeSystem="08.09.840.1.286622.6.96" code="102562336" displayName="Diagnosis " /> <statusCode code="completed" /> <value codeSystem="I9" xsi:type="CD" code="E849.9" displayName="ACCIDENT IN PLACE NOS" /> </ observation> </entryRelationship> </act> </entry> <entry typeCode= "DRIV"> <act moodCode="EVN" classCode="ACT"> <templateId root= "08.09.840.1.159405.10.20.22.4.3" /> <id nullFlavor="UNK" /> <code codeSystem="2.840.1.792695.5.6" code="CONC" displayName="Concern" /> < statusCode code="completed" /> <effectiveTime> <low value="20110808 " /> </effectiveTime> <entryRelationship typeCode="SUBJ"> < observation moodCode="EVN" classCode="OBS"> <templateId root= "08.09.840.1.569311.10.22.4.4" /> <id nullFlavor="UNK" /> < code codeSystem="2.840.1.214381.6.96" code="103386715" displayName="Diagnosis " /> <statusCode code="completed" /> <value codeSystem="I9" xsi:type="CD" code="E930.5" displayName="ADV EFF CEPHALOSPORIN" /> </ observation> </entryRelationship> </act> </entry> <entry typeCode= "DRIV"> <act moodCode="EVN" classCode="ACT"> <templateId root= "08.09.840.1.091392.10.2022.4.3" /> <id nullFlavor="UNK" /> <code codeSystem="2.840.1.685777.5.6" code="CONC" displayName="Concern" /> < statusCode code="completed" /> <effectiveTime> <low value="20110926 " /> </effectiveTime> <entryRelationship typeCode="SUBJ"> < observation moodCode="EVN" classCode="OBS"> <templateId root= "08.09.840.1.735018.10.2022.4.4" /> <id nullFlavor="UNK" /> < code codeSystem="08.09.840.1.580694.6.96" code="502192629" displayName="Diagnosis " /> <statusCode code="completed" /> <value codeSystem="I9" xsi:type="CD" code="112.1" displayName="CANDIDAL VULVOVAGINITIS" /> </ observation> </entryRelationship> </act> </entry> <entry typeCode= "DRIV"> <act moodCode="EVN" classCode="ACT"> <templateId root= "08.09.840.1.083573.10.22.4.3" /> <id nullFlavor="UNK" /> <code codeSystem="2.840.1.048737.5.6" code="CONC" displayName="Concern" /> < statusCode code="completed" /> <effectiveTime> <low value="20111005 " /> </effectiveTime> <entryRelationship typeCode="SUBJ"> < observation moodCode="EVN" classCode="OBS"> <templateId root= "08.09.840.1.346740.10.2022.4.4" /> <id nullFlavor="UNK" /> < code codeSystem="216.840.1.917748.6.96" code="421539512" displayName="Diagnosis " /> <statusCode code="completed" /> <value codeSystem="I9" xsi:type="CD" code="789.06" displayName="ABDOMINAL PAIN EPIGASTRI" /> </ observation> </entryRelationship> </act> </entry> <entry typeCode= "DRIV"> <act moodCode="EVN" classCode="ACT"> <templateId root= "16.840.1.039926.10..22.4.3" /> <id nullFlavor="UNK" /> <code codeSystem="2.840.1.570867.5.6" code="CONC" displayName="Concern" /> < statusCode code="completed" /> <effectiveTime> <low value="20150324 " /> </effectiveTime> <entryRelationship typeCode="SUBJ"> < observation moodCode="EVN" classCode="OBS"> <templateId root= "08.09.840.1.555951.10...4.4" /> <id nullFlavor="UNK" /> < code codeSystem="216.840.1.592145.6.96" code="411465975" displayName="Diagnosis " /> <statusCode code="completed" /> <value codeSystem="I9CDX " xsi:type="CD" code="296.35" 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, Recurrent , In Partial Remission" /> </observation> </entryRelationship> </ act> </entry> <entry typeCode="DRIV"> <act moodCode="EVN" classCode="ACT"> <templateId root="08.09.840.1.960007.10..22.4.3" /> <id nullFlavor= "UNK" /> <code codeSystem="216.840.1.221812.5.6" code="CONC" displayName= "Concern" /> <statusCode code="completed" /> <effectiveTime> < low value="20150324" /> </effectiveTime> <entryRelationship typeCode= "SUBJ"> <observation moodCode="EVN" classCode="OBS"> < templateId root="08.09.840.1.612238.10..22.4.4" /> <id nullFlavor="UNK " /> <code codeSystem="840.1.229500.6.96" code="762871205" displayName="Diagnosis" /> <statusCode code="completed" /> < value codeSystem="I9CDX" xsi:type="CD" code="300.02" displayName="Generalized Anxiety Disorder" /> </observation> </entryRelationship> </act> </entry> <entry typeCode="DRIV"> <act moodCode="EVN" classCode="ACT"> < templateId root="08.09.840.1.272051.10..22.4.3" /> <id nullFlavor="UNK" / > <code codeSystem="2.840.1.803375.5.6" code="CONC" displayName="Concern " /> <statusCode code="completed" /> <effectiveTime> <low value ="65325880" /> </effectiveTime> <entryRelationship typeCode="SUBJ"> <observation moodCode="EVN" classCode="OBS"> <templateId root= "08.09.840.1.141716.10.20.22.4.4" /> <id nullFlavor="UNK" /> < code codeSystem="08.09.840.1.081566.6.96" code="015209936" displayName="Diagnosis " /> <statusCode code="completed" /> <value codeSystem="I9CDX " xsi:type="CD" code="317" 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" /> </ observation> </entryRelationship> </act> </entry> <entry typeCode= "DRIV"> <act moodCode="EVN" classCode="ACT"> <templateId root= "08.09.840.1.838000.10..4.3" /> <id nullFlavor="UNK" /> <code codeSystem="840.1.991640.5.6" code="CONC" displayName="Concern" /> < statusCode code="completed" /> <effectiveTime> <low value="20151202 " /> </effectiveTime> <entryRelationship typeCode="SUBJ"> < observation moodCode="EVN" classCode="OBS"> <templateId root= "840.1.464181...4.4" /> <id nullFlavor="UNK" /> < code codeSystem="08.09.840.1.818041.6.96" code="158098887" displayName="Diagnosis " /> <statusCode code="completed" /> <value codeSystem="" xsi: type="CD" code="J44.9" displayName="Chronic obstructive pulmonary disease, unspecified" /> </observation> </entryRelationship> </act> </ entry> <entry typeCode="DRIV"> <act moodCode="EVN" classCode="ACT"> < templateId root="08.09.840.1.408417.10..4.3" /> <id nullFlavor="UNK" / > <code codeSystem="840.1.607769.5.6" code="CONC" displayName="Concern " /> <statusCode code="completed" /> <effectiveTime> <low value ="20160126" /> </effectiveTime> <entryRelationship typeCode="SUBJ"> <observation moodCode="EVN" classCode="OBS"> <templateId root= "840.1.675376.04.12.22.4.4" /> <id nullFlavor="UNK" /> < code codeSystem="216.840.1.238429.6.96" code="891428501" displayName="Diagnosis " /> <statusCode code="completed" /> <value codeSystem="" xsi: type="CD" code="E86.0" displayName="Dehydration" /> </observation> < /entryRelationship> </act> </entry> <entry typeCode="DRIV"> <act moodCode="EVN" classCode="ACT"> <templateId root= "216.840.1.093222.10..4.3" /> <id nullFlavor="UNK" /> <code codeSystem="216.840.1.080280.5.6" code="CONC" displayName="Concern" /> < statusCode code="completed" /> <effectiveTime> <low value="79662506 " /> </effectiveTime> <entryRelationship typeCode="SUBJ"> < observation moodCode="EVN" classCode="OBS"> <templateId root= "08.09.840.1.439068.10..4.4" /> <id nullFlavor="UNK" /> < code codeSystem="216.840.1.032738.6.96" code="674734959" displayName="Diagnosis " /> <statusCode code="completed" /> <value codeSystem="" xsi: type="CD" code="E860" displayName="Dehydration" /> </observation> </ entryRelationship> </act> </entry> <entry typeCode="DRIV"> <act moodCode ="EVN" classCode="ACT"> <templateId root="216.840.1.451686.10...4.3" / > <id nullFlavor="UNK" /> <code codeSystem="08.09.840.1.996143.5.6" code="CONC" displayName="Concern" /> <statusCode code="completed" /> < effectiveTime> <low value="20160126" /> </effectiveTime> < entryRelationship typeCode="SUBJ"> <observation moodCode="EVN" classCode= "OBS"> <templateId root="08.09.840.1.037937.04.12.22.4.4" /> < id nullFlavor="UNK" /> <code codeSystem="840.1.689166.6.96" code= "615188645" displayName="Diagnosis" /> <statusCode code="completed" /> <value codeSystem="" xsi:type="CD" code="J44.9" displayName="Chronic obstructive pulmonary disease, unspecified" /> </observation> </ entryRelationship> </act> </entry> <entry typeCode="DRIV"> <act moodCode ="EVN" classCode="ACT"> <templateId root="08.09.840.1.207771.04.12.22.4.3" / > <id nullFlavor="UNK" /> <code codeSystem="08.09.840.1.203237.5.6" code="CONC" displayName="Concern" /> <statusCode code="completed" /> < effectiveTime> <low value="20160126" /> </effectiveTime> < entryRelationship typeCode="SUBJ"> <observation moodCode="EVN" classCode= "OBS"> <templateId root="08.09.840.1.743895.04.12.22.4.4" /> < id nullFlavor="UNK" /> <code codeSystem="08.09.840.1.115031.6.96" code= "464409480" displayName="Diagnosis" /> <statusCode code="completed" /> <value codeSystem="" xsi:type="CD" code="J449" displayName="Chronic obstructive pulmonary disease, unspecified" /> </observation> </ entryRelationship> </act> </entry> <entry typeCode="DRIV"> <act moodCode ="EVN" classCode="ACT"> <templateId root="216.840.1.577898.10.22.4.3" / > <id nullFlavor="UNK" /> <code codeSystem="216.840.1.194591.5.6" code="CONC" displayName="Concern" /> <statusCode code="completed" /> < effectiveTime> <low value="65778935" /> </effectiveTime> < entryRelationship typeCode="SUBJ"> <observation moodCode="EVN" classCode= "OBS"> <templateId root="216.840.1.047978.10.22.4.4" /> < id nullFlavor="UNK" /> <code codeSystem="216.840.1.681873.6.96" code= "483077563" displayName="Diagnosis" /> <statusCode code="completed" /> <value codeSystem="" xsi:type="CD" code="I10" displayName="Essential ( primary) hypertension" /> </observation> </entryRelationship> </ act> </entry> <entry typeCode="DRIV"> <act moodCode="EVN" classCode="ACT"> <templateId root="216.840.1.253943.10.22.4.3" /> <id nullFlavor= "UNK" /> <code codeSystem="216.840.1.923193.5.6" code="CONC" displayName= "Concern" /> <statusCode code="completed" /> <effectiveTime> < low value="65821139" /> </effectiveTime> <entryRelationship typeCode= "SUBJ"> <observation moodCode="EVN" classCode="OBS"> < templateId root="840.1.353055.10..4.4" /> <id nullFlavor="UNK " /> <code codeSystem="840.1.986384.6.96" code="050724236" displayName="Diagnosis" /> <statusCode code="completed" /> < value codeSystem="" xsi:type="CD" code="I20.9" displayName="Angina pectoris, unspecified" /> </observation> </entryRelationship> </act> </ entry> <entry typeCode="DRIV"> <act moodCode="EVN" classCode="ACT"> < templateId root="08.09.840.1.538869.10..4.3" /> <id nullFlavor="UNK" / > <code codeSystem="08.09.840.1.520615.5.6" code="CONC" displayName="Concern " /> <statusCode code="completed" /> <effectiveTime> <low value ="20160505" /> </effectiveTime> <entryRelationship typeCode="SUBJ"> <observation moodCode="EVN" classCode="OBS"> <templateId root= "08.09.840.1.384848.10.22.4.4" /> <id nullFlavor="UNK" /> < code codeSystem="08.09.840.1.961826.6.96" code="510511588" displayName="Diagnosis " /> <statusCode code="completed" /> <value codeSystem="" xsi: type="CD" code="I209" displayName="Angina pectoris, unspecified" /> </ observation> </entryRelationship> </act> </entry> <entry typeCode= "DRIV"> <act moodCode="EVN" classCode="ACT"> <templateId root= "08.09.840.1.056593.10.20.22.4.3" /> <id nullFlavor="UNK" /> <code codeSystem="08.09.840.1.333195.5.6" code="CONC" displayName="Concern" /> < statusCode code="completed" /> <effectiveTime> <low value="20160505 " /> </effectiveTime> <entryRelationship typeCode="SUBJ"> < observation moodCode="EVN" classCode="OBS"> <templateId root= "08.09.840.1.899005.10..22.4.4" /> <id nullFlavor="UNK" /> < code codeSystem="2.840.1.740136.6.96" code="032895363" displayName="Diagnosis " /> <statusCode code="completed" /> <value codeSystem="" xsi: type="CD" code="J44.9" displayName="Chronic obstructive pulmonary disease, unspecified" /> </observation> </entryRelationship> </act> </ entry> <entry typeCode="DRIV"> <act moodCode="EVN" classCode="ACT"> < templateId root="08.09.840.1.096417.10..22.4.3" /> <id nullFlavor="UNK" / > <code codeSystem="2.840.1.529016.5.6" code="CONC" displayName="Concern " /> <statusCode code="completed" /> <effectiveTime> <low value ="[id number]" /> </effectiveTime> <entryRelationship typeCode="SUBJ"> <observation moodCode="EVN" classCode="OBS"> <templateId root= "08.09.840.1.274160.10..22.4.4" /> <id nullFlavor="UNK" /> < code codeSystem="840.1.584919.6.96" code="[id number]" displayName="Diagnosis " /> <statusCode code="completed" /> <value codeSystem="" xsi: type="CD" code="J449" displayName="Chronic obstructive pulmonary disease, unspecified" /> </observation> </entryRelationship> </act> </ entry> <entry typeCode="DRIV"> <act moodCode="EVN" classCode="ACT"> < templateId root="08.09.840.1.899979.10..22.4.3" /> <id nullFlavor="UNK" / > <code codeSystem="08.09.840.1.071275.5.6" code="CONC" displayName="Concern " /> <statusCode code="completed" /> <effectiveTime> <low value ="[id number]" /> </effectiveTime> <entryRelationship typeCode="SUBJ"> <observation moodCode="EVN" classCode="OBS"> <templateId root= "08.09.840.1.666723.10..22.4.4" /> <id nullFlavor="UNK" /> < code codeSystem="08.09.840.1.838778.6.96" code="[id number]" displayName="Diagnosis " /> <statusCode code="completed" /> <value codeSystem="" xsi: type="CD" code="R07.9" displayName="Chest pain, unspecified" /> </ observation> </entryRelationship> </act> </entry> <entry typeCode= "DRIV"> <act moodCode="EVN" classCode="ACT"> <templateId root= "840.1.571604.10..22.4.3" /> <id nullFlavor="UNK" /> <code codeSystem="840.1.174851.5.6" code="CONC" displayName="Concern" /> < statusCode code="completed" /> <effectiveTime> <low value="[id number] " /> </effectiveTime> <entryRelationship typeCode="SUBJ"> < observation moodCode="EVN" classCode="OBS"> <templateId root= "840.1.645668.10..4.4" /> <id nullFlavor="UNK" /> < code codeSystem="840.1.974761.6.96" code="736950037" displayName="Diagnosis " /> <statusCode code="completed" /> <value codeSystem="" xsi: type="CD" code="R079" displayName="Chest pain, unspecified" /> </ observation> </entryRelationship> </act> </entry> <entry typeCode= "DRIV"> <act moodCode="EVN" classCode="ACT"> <templateId root= "08.09.840.1.721809.10...4.3" /> <id nullFlavor="UNK" /> <code codeSystem="08.09.840.1.805800.5.6" code="CONC" displayName="Concern" /> < statusCode code="completed" /> <effectiveTime> <low value="20160526 " /> </effectiveTime> <entryRelationship typeCode="SUBJ"> < observation moodCode="EVN" classCode="OBS"> <templateId root= "08.09.840.1.322465.10..22.4.4" /> <id nullFlavor="UNK" /> < code codeSystem="216.840.1.718538.6.96" code="431636735" displayName="Diagnosis " /> <statusCode code="completed" /> <value codeSystem="" xsi: type="CD" code="F41.9" displayName="Anxiety disorder, unspecified" /> </ observation> </entryRelationship> </act> </entry> <entry typeCode= "DRIV"> <act moodCode="EVN" classCode="ACT"> <templateId root= "216.840.1.493377.10..22.4.3" /> <id nullFlavor="UNK" /> <code codeSystem="216.840.1.612933.5.6" code="CONC" displayName="Concern" /> < statusCode code="completed" /> <effectiveTime> <low value="27436650 " /> </effectiveTime> <entryRelationship typeCode="SUBJ"> < observation moodCode="EVN" classCode="OBS"> <templateId root= "16.840.1.692252.10..4.4" /> <id nullFlavor="UNK" /> < code codeSystem="216.840.1.823086.6.96" code="343691641" displayName="Diagnosis " /> <statusCode code="completed" /> <value codeSystem="" xsi: type="CD" code="F419" displayName="Anxiety disorder, unspecified" /> </ observation> </entryRelationship> </act> </entry> <entry typeCode= "DRIV"> <act moodCode="EVN" classCode="ACT"> <templateId root= "216.840.1.281976.10..22.4.3" /> <id nullFlavor="UNK" /> <code codeSystem="08.09.840.1.436907.5.6" code="CONC" displayName="Concern" /> < statusCode code="completed" /> <effectiveTime> <low value="20160526 " /> </effectiveTime> <entryRelationship typeCode="SUBJ"> < observation moodCode="EVN" classCode="OBS"> <templateId root= "08.09.840.1.201838...4.4" /> <id nullFlavor="UNK" /> < code codeSystem="840.1.325386.6.96" code="077448791" displayName="Diagnosis " /> <statusCode code="completed" /> <value codeSystem="" xsi: type="CD" code="R07.89" displayName="Other chest pain" /> </observation> </entryRelationship> </act> </entry> <entry typeCode="DRIV"> <act moodCode="EVN" classCode="ACT"> <templateId root= "08.09.840.1.142311.04.12.22.4.3" /> <id nullFlavor="UNK" /> <code codeSystem="08.09.840.1.698660.5.6" code="CONC" displayName="Concern" /> < statusCode code="completed" /> <effectiveTime> <low value="20160526 " /> </effectiveTime> <entryRelationship typeCode="SUBJ"> < observation moodCode="EVN" classCode="OBS"> <templateId root= "08.09.840.1.022935.04.12.22.4.4" /> <id nullFlavor="UNK" /> < code codeSystem="08.09.840.1.366076.6.96" code="828588288" displayName="Diagnosis " /> <statusCode code="completed" /> <value codeSystem="" xsi: type="CD" code="R0789" displayName="Other chest pain" /> </observation> </entryRelationship> </act> </entry> <entry typeCode="DRIV"> <act moodCode="EVN" classCode="ACT"> <templateId root= "08.09.840.1.366190.10.22.4.3" /> <id nullFlavor="UNK" /> <code codeSystem="08.09.840.1.580116.5.6" code="CONC" displayName="Concern" /> < statusCode code="completed" /> <effectiveTime> <low value="97153875 " /> </effectiveTime> <entryRelationship typeCode="SUBJ"> < observation moodCode="EVN" classCode="OBS"> <templateId root= "08.09.840.1.351684.10.22.4.4" /> <id nullFlavor="UNK" /> < code codeSystem="08.09.840.1.975675.6.96" code="596355595" displayName="Diagnosis " /> <statusCode code="completed" /> <value codeSystem="" xsi: type="CD" code="R07.89" displayName="Other chest pain" /> </observation> </entryRelationship> </act> </entry> <entry typeCode="DRIV"> <act moodCode="EVN" classCode="ACT"> <templateId root= "08.09.840.1.066817.10.20.22.4.3" /> <id nullFlavor="UNK" /> <code codeSystem="2.840.1.927023.5.6" code="CONC" displayName="Concern" /> < statusCode code="completed" /> <effectiveTime> <low value="20160626 " /> </effectiveTime> <entryRelationship typeCode="SUBJ"> < observation moodCode="EVN" classCode="OBS"> <templateId root= "08.09.840.1.645549.10.22.4.4" /> <id nullFlavor="UNK" /> < code codeSystem="2.840.1.401469.6.96" code="508907564" displayName="Diagnosis " /> <statusCode code="completed" /> <value codeSystem="" xsi: type="CD" code="R07.89" displayName="Other chest pain" /> </observation> </entryRelationship> </act> </entry> <entry typeCode="DRIV"> <act moodCode="EVN" classCode="ACT"> <templateId root= "08.09.840.1.293935.10..4.3" /> <id nullFlavor="UNK" /> <code codeSystem="216.840.1.585369.5.6" code="CONC" displayName="Concern" /> < statusCode code="completed" /> <effectiveTime> <low value="20160626 " /> </effectiveTime> <entryRelationship typeCode="SUBJ"> < observation moodCode="EVN" classCode="OBS"> <templateId root= "08.09.840.1.171575.10.22.4.4" /> <id nullFlavor="UNK" /> < code codeSystem="216.840.1.401057.6.96" code="818933348" displayName="Diagnosis " /> <statusCode code="completed" /> <value codeSystem="" xsi: type="CD" code="Z51.89" displayName="Encounter for other specified aftercare" / > </observation> </entryRelationship> </act> </entry> <entry typeCode="DRIV"> <act moodCode="EVN" classCode="ACT"> <templateId root= "216.840.1.524284.10..4.3" /> <id nullFlavor="UNK" /> <code codeSystem="2.840.1.242817.5.6" code="CONC" displayName="Concern" /> < statusCode code="completed" /> <effectiveTime> <low value="20160706 " /> </effectiveTime> <entryRelationship typeCode="SUBJ"> < observation moodCode="EVN" classCode="OBS"> <templateId root= "16.840.1.141781.10..4.4" /> <id nullFlavor="UNK" /> < code codeSystem="216.840.1.861532.6.96" code="061490978" displayName="Diagnosis " /> <statusCode code="completed" /> <value codeSystem="" xsi: type="CD" code="J44.1" displayName="Chronic obstructive pulmonary disease with ( acute) exacerbation" /> </observation> </entryRelationship> </act > </entry> <entry typeCode="DRIV"> <act moodCode="EVN" classCode="ACT"> <templateId root="08.09.840.1.885595.10...4.3" /> <id nullFlavor="UNK " /> <code codeSystem="216.840.1.269464.5.6" code="CONC" displayName= "Concern" /> <statusCode code="completed" /> <effectiveTime> < low value="20160706" /> </effectiveTime> <entryRelationship typeCode= "SUBJ"> <observation moodCode="EVN" classCode="OBS"> < templateId root="08.09.840.1.910149.10.20.22.4.4" /> <id nullFlavor="UNK " /> <code codeSystem="08.09.840.1.359139.6.96" code="216362847" displayName="Diagnosis" /> <statusCode code="completed" /> < value codeSystem="" xsi:type="CD" code="J441" displayName="Chronic obstructive pulmonary disease with (acute) exacerbation" /> </observation> </ entryRelationship> </act> </entry> <entry typeCode="DRIV"> <act moodCode ="EVN" classCode="ACT"> <templateId root="08.09.840.1.009869.10.20.22.4.3" / > <id nullFlavor="UNK" /> <code codeSystem="2.840.1.873675.5.6" code="CONC" displayName="Concern" /> <statusCode code="completed" /> < effectiveTime> <low value="05043295" /> </effectiveTime> < entryRelationship typeCode="SUBJ"> <observation moodCode="EVN" classCode= "OBS"> <templateId root="16.840.1.879585.10.20.22.4.4" /> < id nullFlavor="UNK" /> <code codeSystem="216.840.1.651322.6.96" code= "880995081" displayName="Diagnosis" /> <statusCode code="completed" /> <value codeSystem="" xsi:type="CD" code="R05" displayName="Cough" /> </observation> </entryRelationship> </act> </entry> <entry typeCode="DRIV"> <act moodCode="EVN" classCode="ACT"> <templateId root= "08.09.840.1.722219.10..22.4.3" /> <id nullFlavor="UNK" /> <code codeSystem="840.1.288531.5.6" code="CONC" displayName="Concern" /> < statusCode code="completed" /> <effectiveTime> <low value="20160726 " /> </effectiveTime> <entryRelationship typeCode="SUBJ"> < observation moodCode="EVN" classCode="OBS"> <templateId root= "08.09.840.1.123439.10..4.4" /> <id nullFlavor="UNK" /> < code codeSystem="08.09.840.1.974897.6.96" code="982981964" displayName="Diagnosis " /> <statusCode code="completed" /> <value codeSystem="" xsi: type="CD" code="I10" displayName="Essential (primary) hypertension" /> </ observation> </entryRelationship> </act> </entry> <entry typeCode= "DRIV"> <act moodCode="EVN" classCode="ACT"> <templateId root= "08.09.840.1.237255.10...4.3" /> <id nullFlavor="UNK" /> <code codeSystem="2.840.1.742930.5.6" code="CONC" displayName="Concern" /> < statusCode code="completed" /> <effectiveTime> <low value="20160726 " /> </effectiveTime> <entryRelationship typeCode="SUBJ"> < observation moodCode="EVN" classCode="OBS"> <templateId root= "08.09.840.1.352552.10..22.4.4" /> <id nullFlavor="UNK" /> < code codeSystem="16.840.1.641299.6.96" code="496703188" displayName="Diagnosis " /> <statusCode code="completed" /> <value codeSystem="" xsi: type="CD" code="J40" displayName="Bronchitis, not specified as acute or chronic " /> </observation> </entryRelationship> </act> </entry> < entry typeCode="DRIV"> <act moodCode="EVN" classCode="ACT"> <templateId root="08.09.840.1.417999.10.20.22.4.3" /> <id nullFlavor="UNK" /> < code codeSystem="08.09.840.1.620498.5.6" code="CONC" displayName="Concern" /> <statusCode code="completed" /> <effectiveTime> <low value= "77305836" /> </effectiveTime> <entryRelationship typeCode="SUBJ"> <observation moodCode="EVN" classCode="OBS"> <templateId root= "08.09.840.1.055498.10..22.4.4" /> <id nullFlavor="UNK" /> < code codeSystem="216.840.1.074834.6.96" code="103335551" displayName="Diagnosis " /> <statusCode code="completed" /> <value codeSystem="" xsi: type="CD" code="J44.9" displayName="Chronic obstructive pulmonary disease, unspecified" /> </observation> </entryRelationship> </act> </ entry> <entry typeCode="DRIV"> <act moodCode="EVN" classCode="ACT"> < templateId root="08.09.840.1.145895.10.20.22.4.3" /> <id nullFlavor="UNK" / > <code codeSystem="08.09.840.1.155068.5.6" code="CONC" displayName="Concern " /> <statusCode code="completed" /> <effectiveTime> <low value ="20160726" /> </effectiveTime> <entryRelationship typeCode="SUBJ"> <observation moodCode="EVN" classCode="OBS"> <templateId root= "840.1.528466...4.4" /> <id nullFlavor="UNK" /> < code codeSystem="840.1.483901.6.96" code="183997720" displayName="Diagnosis " /> <statusCode code="completed" /> <value codeSystem="" xsi: type="CD" code="J449" displayName="Chronic obstructive pulmonary disease, unspecified" /> </observation> </entryRelationship> </act> </ entry> <entry typeCode="DRIV"> <act moodCode="EVN" classCode="ACT"> < templateId root="840.1.528370.10.4.3" /> <id nullFlavor="UNK" / > <code codeSystem="840.1.237345.5.6" code="CONC" displayName="Concern " /> <statusCode code="completed" /> <effectiveTime> <low value ="20160726" /> </effectiveTime> <entryRelationship typeCode="SUBJ"> <observation moodCode="EVN" classCode="OBS"> <templateId root= "840.1.993197.04.12.22.4.4" /> <id nullFlavor="UNK" /> < code codeSystem="840.1.237634.6.96" code="045704203" displayName="Diagnosis " /> <statusCode code="completed" /> <value codeSystem="" xsi: type="CD" code="K21.9" displayName="Gastro-esophageal reflux disease without esophagitis" /> </observation> </entryRelationship> </act> </ entry> <entry typeCode="DRIV"> <act moodCode="EVN" classCode="ACT"> < templateId root="216.840.1.375998.10..22.4.3" /> <id nullFlavor="UNK" / > <code codeSystem="216.840.1.469835.5.6" code="CONC" displayName="Concern " /> <statusCode code="completed" /> <effectiveTime> <low value ="38306813" /> </effectiveTime> <entryRelationship typeCode="SUBJ"> <observation moodCode="EVN" classCode="OBS"> <templateId root= "08.09.840.1.585113.10.22.4.4" /> <id nullFlavor="UNK" /> < code codeSystem="216.840.1.699623.6.96" code="724640850" displayName="Diagnosis " /> <statusCode code="completed" /> <value codeSystem="" xsi: type="CD" code="K219" displayName="Gastro-esophageal reflux disease without esophagitis" /> </observation> </entryRelationship> </act> </ entry> <entry typeCode="DRIV"> <act moodCode="EVN" classCode="ACT"> < templateId root="08.09.840.1.309567.10..22.4.3" /> <id nullFlavor="UNK" / > <code codeSystem="216.840.1.170021.5.6" code="CONC" displayName="Concern " /> <statusCode code="completed" /> <effectiveTime> <low value ="98352268" /> </effectiveTime> <entryRelationship typeCode="SUBJ"> <observation moodCode="EVN" classCode="OBS"> <templateId root= "08.09.840.1.944025.10..4.4" /> <id nullFlavor="UNK" /> < code codeSystem="08.09.840.1.739950.6.96" code="399201578" displayName="Diagnosis " /> <statusCode code="completed" /> <value codeSystem="" xsi: type="CD" code="R07.9" displayName="Chest pain, unspecified" /> </ observation> </entryRelationship> </act> </entry> <entry typeCode= "DRIV"> <act moodCode="EVN" classCode="ACT"> <templateId root= "08.09.840.1.302328.10..4.3" /> <id nullFlavor="UNK" /> <code codeSystem="2.840.1.669240.5.6" code="CONC" displayName="Concern" /> < statusCode code="completed" /> <effectiveTime> <low value="28786301 " /> </effectiveTime> <entryRelationship typeCode="SUBJ"> < observation moodCode="EVN" classCode="OBS"> <templateId root= "08.09.840.1.381557.10.22.4.4" /> <id nullFlavor="UNK" /> < code codeSystem="08.09.840.1.864676.6.96" code="071449332" displayName="Diagnosis " /> <statusCode code="completed" /> <value codeSystem="" xsi: type="CD" code="R079" displayName="Chest pain, unspecified" /> </ observation> </entryRelationship> </act> </entry> <entry typeCode= "DRIV"> <act moodCode="EVN" classCode="ACT"> <templateId root= "08.09.840.1.137485.10...4.3" /> <id nullFlavor="UNK" /> <code codeSystem="08.09.840.1.121366.5.6" code="CONC" displayName="Concern" /> < statusCode code="completed" /> <effectiveTime> <low value="20160820 " /> </effectiveTime> <entryRelationship typeCode="SUBJ"> < observation moodCode="EVN" classCode="OBS"> <templateId root= "08.09.840.1.386169.10..4.4" /> <id nullFlavor="UNK" /> < code codeSystem="2.840.1.826009.6.96" code="455520228" displayName="Diagnosis " /> <statusCode code="completed" /> <value codeSystem="" xsi: type="CD" code="R30.0" displayName="Dysuria" /> </observation> </ entryRelationship> </act> </entry> <entry typeCode="DRIV"> <act moodCode ="EVN" classCode="ACT"> <templateId root="08.09.840.1.351033.10..4.3" / > <id nullFlavor="UNK" /> <code codeSystem="2.840.1.886210.5.6" code="CONC" displayName="Concern" /> <statusCode code="completed" /> < effectiveTime> <low value="20160821" /> </effectiveTime> < entryRelationship typeCode="SUBJ"> <observation moodCode="EVN" classCode= "OBS"> <templateId root="08.09.840.1.406246.10.20.22.4.4" /> < id nullFlavor="UNK" /> <code codeSystem="840.1.283524.6.96" code= "684321707" displayName="Diagnosis" /> <statusCode code="completed" /> <value codeSystem="" xsi:type="CD" code="M54.6" displayName="Pain in thoracic spine" /> </observation> </entryRelationship> </act> </ entry> <entry typeCode="DRIV"> <act moodCode="EVN" classCode="ACT"> < templateId root="08.09.840.1.886284.10.20.22.4.3" /> <id nullFlavor="UNK" / > <code codeSystem="2.840.1.273644.5.6" code="CONC" displayName="Concern " /> <statusCode code="completed" /> <effectiveTime> <low value ="33102126" /> </effectiveTime> <entryRelationship typeCode="SUBJ"> <observation moodCode="EVN" classCode="OBS"> <templateId root= "08.09.840.1.167911.10.20.22.4.4" /> <id nullFlavor="UNK" /> < code codeSystem="840.1.972663.6.96" code="525273757" displayName="Diagnosis " /> <statusCode code="completed" /> <value codeSystem="" xsi: type="CD" code="Z51.89" displayName="Encounter for other specified aftercare" / > </observation> </entryRelationship> </act> </entry> <entry typeCode="DRIV"> <act moodCode="EVN" classCode="ACT"> <templateId root= "08.09.840.1.479371.10..22.4.3" /> <id nullFlavor="UNK" /> <code codeSystem="840.1.347314.5.6" code="CONC" displayName="Concern" /> < statusCode code="completed" /> <effectiveTime> <low value="20160824 " /> </effectiveTime> <entryRelationship typeCode="SUBJ"> < observation moodCode="EVN" classCode="OBS"> <templateId root= "840.1.767158.10..4.4" /> <id nullFlavor="UNK" /> < code codeSystem="08.09.840.1.210242.6.96" code="176196918" displayName="Diagnosis " /> <statusCode code="completed" /> <value codeSystem="" xsi: type="CD" code="I10" displayName="Essential (primary) hypertension" /> </ observation> </entryRelationship> </act> </entry> <entry typeCode= "DRIV"> <act moodCode="EVN" classCode="ACT"> <templateId root= "08.09.840.1.299577.10..22.4.3" /> <id nullFlavor="UNK" /> <code codeSystem="08.09.840.1.949051.5.6" code="CONC" displayName="Concern" /> < statusCode code="completed" /> <effectiveTime> <low value="20160824 " /> </effectiveTime> <entryRelationship typeCode="SUBJ"> < observation moodCode="EVN" classCode="OBS"> <templateId root= "08.09.840.1.481460.10..22.4.4" /> <id nullFlavor="UNK" /> < code codeSystem="216.840.1.139272.6.96" code="745838970" displayName="Diagnosis " /> <statusCode code="completed" /> <value codeSystem="" xsi: type="CD" code="R07.89" displayName="Other chest pain" /> </observation> </entryRelationship> </act> </entry> <entry typeCode="DRIV"> <act moodCode="EVN" classCode="ACT"> <templateId root= "08.09.840.1.515159.10.20.22.4.3" /> <id nullFlavor="UNK" /> <code codeSystem="216.840.1.492336.5.6" code="CONC" displayName="Concern" /> < statusCode code="completed" /> <effectiveTime> <low value="25400837 " /> </effectiveTime> <entryRelationship typeCode="SUBJ"> < observation moodCode="EVN" classCode="OBS"> <templateId root= "08.09.840.1.567625.10..22.4.4" /> <id nullFlavor="UNK" /> < code codeSystem="216.840.1.478633.6.96" code="807878638" displayName="Diagnosis " /> <statusCode code="completed" /> <value codeSystem="" xsi: type="CD" code="R52" displayName="Pain, unspecified" /> </observation> </entryRelationship> </act> </entry> <entry typeCode="DRIV"> <act moodCode="EVN" classCode="ACT"> <templateId root= "08.09.840.1.084156.10.20.22.4.3" /> <id nullFlavor="UNK" /> <code codeSystem="840.1.126573.5.6" code="CONC" displayName="Concern" /> < statusCode code="completed" /> <effectiveTime> <low value="20160826 " /> </effectiveTime> <entryRelationship typeCode="SUBJ"> < observation moodCode="EVN" classCode="OBS"> <templateId root= "840.1.092424.10..4.4" /> <id nullFlavor="UNK" /> < code codeSystem="840.1.225935.6.96" code="269060643" displayName="Diagnosis " /> <statusCode code="completed" /> <value codeSystem="" xsi: type="CD" code="E86.0" displayName="Dehydration" /> </observation> < /entryRelationship> </act> </entry> <entry typeCode="DRIV"> <act moodCode="EVN" classCode="ACT"> <templateId root= "840.1.213506.10..4.3" /> <id nullFlavor="UNK" /> <code codeSystem="840.1.623762.5.6" code="CONC" displayName="Concern" /> < statusCode code="completed" /> <effectiveTime> <low value="20160826 " /> </effectiveTime> <entryRelationship typeCode="SUBJ"> < observation moodCode="EVN" classCode="OBS"> <templateId root= "840.1.809073.10..4.4" /> <id nullFlavor="UNK" /> < code codeSystem="840.1.543872.6.96" code="718858697" displayName="Diagnosis " /> <statusCode code="completed" /> <value codeSystem="" xsi: type="CD" code="N39.0" displayName="Urinary tract infection, site not specified " /> </observation> </entryRelationship> </act> </entry> < entry typeCode="DRIV"> <act moodCode="EVN" classCode="ACT"> <templateId root="216.840.1.442085.10..22.4.3" /> <id nullFlavor="UNK" /> < code codeSystem="216.840.1.963023.5.6" code="CONC" displayName="Concern" /> <statusCode code="completed" /> <effectiveTime> <low value= "20160826" /> </effectiveTime> <entryRelationship typeCode="SUBJ"> <observation moodCode="EVN" classCode="OBS"> <templateId root= "08.09.840.1.939773.10.22.4.4" /> <id nullFlavor="UNK" /> < code codeSystem="216.840.1.239625.6.96" code="752894401" displayName="Diagnosis " /> <statusCode code="completed" /> <value codeSystem="" xsi: type="CD" code="R11.0" displayName="Nausea" /> </observation> </ entryRelationship> </act> </entry> <entry typeCode="DRIV"> <act moodCode ="EVN" classCode="ACT"> <templateId root="16.840.1.273319.10..22.4.3" / > <id nullFlavor="UNK" /> <code codeSystem="216.840.1.473193.5.6" code="CONC" displayName="Concern" /> <statusCode code="completed" /> < effectiveTime> <low value="20160918" /> </effectiveTime> < entryRelationship typeCode="SUBJ"> <observation moodCode="EVN" classCode= "OBS"> <templateId root="08.09.840.1.325856.10..22.4.4" /> < id nullFlavor="UNK" /> <code codeSystem="840.1.025219.6.96" code= "618895170" displayName="Diagnosis" /> <statusCode code="completed" /> <value codeSystem="" xsi:type="CD" code="M54.6" displayName="Pain in thoracic spine" /> </observation> </entryRelationship> </act> </ entry> <entry typeCode="DRIV"> <act moodCode="EVN" classCode="ACT"> < templateId root="08.09.840.1.556303.10..4.3" /> <id nullFlavor="UNK" / > <code codeSystem="08.09.840.1.027819.5.6" code="CONC" displayName="Concern " /> <statusCode code="completed" /> <effectiveTime> <low value ="25617372" /> </effectiveTime> <entryRelationship typeCode="SUBJ"> <observation moodCode="EVN" classCode="OBS"> <templateId root= "08.09.840.1.094695.10..4.4" /> <id nullFlavor="UNK" /> < code codeSystem="216.840.1.330266.6.96" code="938820495" displayName="Diagnosis " /> <statusCode code="completed" /> <value codeSystem="" xsi: type="CD" code="Z51.89" displayName="Encounter for other specified aftercare" / > </observation> </entryRelationship> </act> </entry> <entry typeCode="DRIV"> <act moodCode="EVN" classCode="ACT"> <templateId root= "840.1.551051.10..4.3" /> <id nullFlavor="UNK" /> <code codeSystem="840.1.543762.5.6" code="CONC" displayName="Concern" /> < statusCode code="completed" /> <effectiveTime> <low value="28888966 " /> </effectiveTime> <entryRelationship typeCode="SUBJ"> < observation moodCode="EVN" classCode="OBS"> <templateId root= "840.1.185851.04.12.22.4.4" /> <id nullFlavor="UNK" /> < code codeSystem="840.1.307587.6.96" code="152424101" displayName="Diagnosis " /> <statusCode code="completed" /> <value codeSystem="" xsi: type="CD" code="Z12.31" displayName="Encounter for screening mammogram for malignant neoplasm of breast" /> </observation> </entryRelationship > </act> </entry> <entry typeCode="DRIV"> <act moodCode="EVN" classCode= "ACT"> <templateId root="840.1.966497.10.4.3" /> <id nullFlavor="UNK" /> <code codeSystem="2.840.1.941396.5.6" code="CONC" displayName="Concern" /> <statusCode code="completed" /> < effectiveTime> <low value="16679608" /> </effectiveTime> < entryRelationship typeCode="SUBJ"> <observation moodCode="EVN" classCode= "OBS"> <templateId root="840.1.292726.10..22.4.4" /> < id nullFlavor="UNK" /> <code codeSystem="08.09.840.1.900263.6.96" code= "615224105" displayName="Diagnosis" /> <statusCode code="completed" /> <value codeSystem="" xsi:type="CD" code="R10.9" displayName= "Unspecified abdominal pain" /> </observation> </entryRelationship> </act> </entry> <entry typeCode="DRIV"> <act moodCode="EVN" classCode= "ACT"> <templateId root="08.09.840.1.479150.10..22.4.3" /> <id nullFlavor="UNK" /> <code codeSystem="216.840.1.304701.5.6" code="CONC" displayName="Concern" /> <statusCode code="completed" /> < effectiveTime> <low value="[id number]" /> </effectiveTime> < entryRelationship typeCode="SUBJ"> <observation moodCode="EVN" classCode= "OBS"> <templateId root="08.09.840.1.818124.10.20.22.4.4" /> < id nullFlavor="UNK" /> <code codeSystem="216.840.1.285888.6.96" code= "[id number]" displayName="Diagnosis" /> <statusCode code="completed" /> <value codeSystem="" xsi:type="CD" code="R30.9" displayName="Painful micturition, unspecified" /> </observation> </entryRelationship> </act> </entry> <entry typeCode="DRIV"> <act moodCode="EVN" classCode="ACT "> <templateId root="08.09.840.1.623395.10...4.3" /> <id nullFlavor ="UNK" /> <code codeSystem="840.1.292278.5.6" code="CONC" displayName= "Concern" /> <statusCode code="completed" /> <effectiveTime> < low value="[id number]" /> </effectiveTime> <entryRelationship typeCode= "SUBJ"> <observation moodCode="EVN" classCode="OBS"> < templateId root="840.1.801975.10..4.4" /> <id nullFlavor="UNK " /> <code codeSystem="840.1.936290.6.96" code="389004587" displayName="Diagnosis" /> <statusCode code="completed" /> < value codeSystem="" xsi:type="CD" code="M79.662" displayName="Pain in left lower leg" /> </observation> </entryRelationship> </act> </entry > <entry typeCode="DRIV"> <act moodCode="EVN" classCode="ACT"> < templateId root="840.1.154625.10..4.3" /> <id nullFlavor="UNK" / > <code codeSystem="08.09.840.1.038509.5.6" code="CONC" displayName="Concern " /> <statusCode code="completed" /> <effectiveTime> <low value ="20161115" /> </effectiveTime> <entryRelationship typeCode="SUBJ"> <observation moodCode="EVN" classCode="OBS"> <templateId root= "840.1.844029.10..4.4" /> <id nullFlavor="UNK" /> < code codeSystem="08.09.830.1.398942.6.96" code="825709653" displayName="Diagnosis " /> <statusCode code="completed" /> <value codeSystem="" xsi: type="CD" code="R30.0" displayName="Dysuria" /> </observation> </ entryRelationship> </act> </entry> <entry typeCode="DRIV"> <act moodCode ="EVN" classCode="ACT"> <templateId root="216.840.1.888440.10..22.4.3" / > <id nullFlavor="UNK" /> <code codeSystem="216.840.1.095558.5.6" code="CONC" displayName="Concern" /> <statusCode code="completed" /> < effectiveTime> <low value="71973044" /> </effectiveTime> < entryRelationship typeCode="SUBJ"> <observation moodCode="EVN" classCode= "OBS"> <templateId root="08.09.840.1.049442.10..22.4.4" /> < id nullFlavor="UNK" /> <code codeSystem="216.840.1.846547.6.96" code= "613199537" displayName="Diagnosis" /> <statusCode code="completed" /> <value codeSystem="" xsi:type="CD" code="D69.6" displayName= "Thrombocytopenia, unspecified" /> </observation> </ entryRelationship> </act> </entry> <entry typeCode="DRIV"> <act moodCode ="EVN" classCode="ACT"> <templateId root="16.840.1.752451.10.20.22.4.3" / > <id nullFlavor="UNK" /> <code codeSystem="216.840.1.474849.5.6" code="CONC" displayName="Concern" /> <statusCode code="completed" /> < effectiveTime> <low value="20161230" /> </effectiveTime> < entryRelationship typeCode="SUBJ"> <observation moodCode="EVN" classCode= "OBS"> <templateId root="08.09.840.1.545248.10..4.4" /> < id nullFlavor="UNK" /> <code codeSystem="840.1.309225.6.96" code= "330739330" displayName="Diagnosis" /> <statusCode code="completed" /> <value codeSystem="" xsi:type="CD" code="E86.0" displayName= "Dehydration" /> </observation> </entryRelationship> </act> </ entry> <entry typeCode="DRIV"> <act moodCode="EVN" classCode="ACT"> < templateId root="840.1.726419.10..4.3" /> <id nullFlavor="UNK" / > <code codeSystem="840.1.754347.5.6" code="CONC" displayName="Concern " /> <statusCode code="completed" /> <effectiveTime> <low value ="20161230" /> </effectiveTime> <entryRelationship typeCode="SUBJ"> <observation moodCode="EVN" classCode="OBS"> <templateId root= "08.09.840.1.771367.10..4.4" /> <id nullFlavor="UNK" /> < code codeSystem="08.09.840.1.860104.6.96" code="899461620" displayName="Diagnosis " /> <statusCode code="completed" /> <value codeSystem="" xsi: type="CD" code="F32.9" displayName="Major depressive disorder, single episode, unspecified" /> </observation> </entryRelationship> </act> </ entry> <entry typeCode="DRIV"> <act moodCode="EVN" classCode="ACT"> < templateId root="08.09.840.1.486602.10..22.4.3" /> <id nullFlavor="UNK" / > <code codeSystem="08.09.840.1.339643.5.6" code="CONC" displayName="Concern " /> <statusCode code="completed" /> <effectiveTime> <low value ="20161230" /> </effectiveTime> <entryRelationship typeCode="SUBJ"> <observation moodCode="EVN" classCode="OBS"> <templateId root= "08.09.840.1.595564.10..4.4" /> <id nullFlavor="UNK" /> < code codeSystem="08.09.840.1.164849.6.96" code="249019572" displayName="Diagnosis " /> <statusCode code="completed" /> <value codeSystem="" xsi: type="CD" code="F41.9" displayName="Anxiety disorder, unspecified" /> </ observation> </entryRelationship> </act> </entry> <entry typeCode= "DRIV"> <act moodCode="EVN" classCode="ACT"> <templateId root= "08.09.840.1.356619.10..4.3" /> <id nullFlavor="UNK" /> <code codeSystem="08.09.840.1.164308.5.6" code="CONC" displayName="Concern" /> < statusCode code="completed" /> <effectiveTime> <low value="20161230 " /> </effectiveTime> <entryRelationship typeCode="SUBJ"> < observation moodCode="EVN" classCode="OBS"> <templateId root= "08.09.840.1.532785.10..22.4.4" /> <id nullFlavor="UNK" /> < code codeSystem="840.1.307813.6.96" code="690794129" displayName="Diagnosis " /> <statusCode code="completed" /> <value codeSystem="" xsi: type="CD" code="F79" displayName="Unspecified intellectual disabilities" /> </observation> </entryRelationship> </act> </entry> <entry typeCode="DRIV"> <act moodCode="EVN" classCode="ACT"> <templateId root= "08.09.840.1.309885.10..4.3" /> <id nullFlavor="UNK" /> <code codeSystem="08.09.840.1.079634.5.6" code="CONC" displayName="Concern" /> < statusCode code="completed" /> <effectiveTime> <low value="02584040 " /> </effectiveTime> <entryRelationship typeCode="SUBJ"> < observation moodCode="EVN" classCode="OBS"> <templateId root= "08.09.840.1.048696.10..4.4" /> <id nullFlavor="UNK" /> < code codeSystem="08.09.840.1.424477.6.96" code="288538674" displayName="Diagnosis " /> <statusCode code="completed" /> <value codeSystem="" xsi: type="CD" code="I10" displayName="Essential (primary) hypertension" /> </ observation> </entryRelationship> </act> </entry> <entry typeCode= "DRIV"> <act moodCode="EVN" classCode="ACT"> <templateId root= "08.09.840.1.025986.10..4.3" /> <id nullFlavor="UNK" /> <code codeSystem="08.09.840.1.354073.5.6" code="CONC" displayName="Concern" /> < statusCode code="completed" /> <effectiveTime> <low value="20161230 " /> </effectiveTime> <entryRelationship typeCode="SUBJ"> < observation moodCode="EVN" classCode="OBS"> <templateId root= "08.09.840.1.580988.04.12.22.4.4" /> <id nullFlavor="UNK" /> < code codeSystem="08.09.840.1.919803.6.96" code="559257900" displayName="Diagnosis " /> <statusCode code="completed" /> <value codeSystem="" xsi: type="CD" code="J18.9" displayName="Pneumonia, unspecified organism" /> < /observation> </entryRelationship> </act> </entry> <entry typeCode= "DRIV"> <act moodCode="EVN" classCode="ACT"> <templateId root= "08.09.840.1.539176.10..4.3" /> <id nullFlavor="UNK" /> <code codeSystem="08.09.840.1.418885.5.6" code="CONC" displayName="Concern" /> < statusCode code="completed" /> <effectiveTime> <low value="44232308 " /> </effectiveTime> <entryRelationship typeCode="SUBJ"> < observation moodCode="EVN" classCode="OBS"> <templateId root= "08.09.840.1.918504.10..22.4.4" /> <id nullFlavor="UNK" /> < code codeSystem="216.840.1.322383.6.96" code="096319460" displayName="Diagnosis " /> <statusCode code="completed" /> <value codeSystem="" xsi: type="CD" code="J44.0" displayName="Chronic obstructive pulmonary disease with acute lower respiratory infection" /> </observation> </ entryRelationship> </act> </entry> <entry typeCode="DRIV"> <act moodCode ="EVN" classCode="ACT"> <templateId root="2.16.840.1.893933.10...4.3" / > <id nullFlavor="UNK" /> <code codeSystem="2.16.840.1.444249.5.6" code="CONC" displayName="Concern" /> <statusCode code="completed" /> < effectiveTime> <low value="78822775" /> </effectiveTime> < entryRelationship typeCode="SUBJ"> <observation moodCode="EVN" classCode= "OBS"> <templateId root="216.840.1.408462.10..22.4.4" /> < id nullFlavor="UNK" /> <code codeSystem="216.840.1.745305.6.96" code= "088155294" displayName="Diagnosis" /> <statusCode code="completed" /> <value codeSystem="" xsi:type="CD" code="J44.1" displayName="Chronic obstructive pulmonary disease with (acute) exacerbation" /> </observation > </entryRelationship> </act> </entry> <entry typeCode="DRIV"> < act moodCode="EVN" classCode="ACT"> <templateId root= "08.09.840.1.279945.10..22.4.3" /> <id nullFlavor="UNK" /> <code codeSystem="840.1.465592.5.6" code="CONC" displayName="Concern" /> < statusCode code="completed" /> <effectiveTime> <low value="20161230 " /> </effectiveTime> <entryRelationship typeCode="SUBJ"> < observation moodCode="EVN" classCode="OBS"> <templateId root= "840.1.854482.10..4.4" /> <id nullFlavor="UNK" /> < code codeSystem="840.1.830816.6.96" code="978714017" displayName="Diagnosis " /> <statusCode code="completed" /> <value codeSystem="" xsi: type="CD" code="M15.0" displayName="Primary generalized (osteo)arthritis" /> </observation> </entryRelationship> </act> </entry> <entry typeCode="DRIV"> <act moodCode="EVN" classCode="ACT"> <templateId root= "08.09.840.1.554309.10..4.3" /> <id nullFlavor="UNK" /> <code codeSystem="08.09.840.1.021102.5.6" code="CONC" displayName="Concern" /> < statusCode code="completed" /> <effectiveTime> <low value="20161230 " /> </effectiveTime> <entryRelationship typeCode="SUBJ"> < observation moodCode="EVN" classCode="OBS"> <templateId root= "08.09.840.1.971281.10..4.4" /> <id nullFlavor="UNK" /> < code codeSystem="840.1.104642.6.96" code="238535271" displayName="Diagnosis " /> <statusCode code="completed" /> <value codeSystem="" xsi: type="CD" code="N39.3" displayName="Stress incontinence (female) (male)" /> </observation> </entryRelationship> </act> </entry> <entry typeCode="DRIV"> <act moodCode="EVN" classCode="ACT"> <templateId root= "16.840.1.792351.10.20.22.4.3" /> <id nullFlavor="UNK" /> <code codeSystem="216.840.1.044720.5.6" code="CONC" displayName="Concern" /> < statusCode code="completed" /> <effectiveTime> <low value="50510381 " /> </effectiveTime> <entryRelationship typeCode="SUBJ"> < observation moodCode="EVN" classCode="OBS"> <templateId root= "16.840.1.615035.10..22.4.4" /> <id nullFlavor="UNK" /> < code codeSystem="216.840.1.738223.6.96" code="731839509" displayName="Diagnosis " /> <statusCode code="completed" /> <value codeSystem="" xsi: type="CD" code="R09.02" displayName="Hypoxemia" /> </observation> </ entryRelationship> </act> </entry> <entry typeCode="DRIV"> <act moodCode ="EVN" classCode="ACT"> <templateId root="16.840.1.602141.10.20.22.4.3" / > <id nullFlavor="UNK" /> <code codeSystem="216840.1.072450.5.6" code="CONC" displayName="Concern" /> <statusCode code="completed" /> < effectiveTime> <low value="20161230" /> </effectiveTime> < entryRelationship typeCode="SUBJ"> <observation moodCode="EVN" classCode= "OBS"> <templateId root="08.09.840.1.815581.10..4.4" /> < id nullFlavor="UNK" /> <code codeSystem="840.1.531368.6.96" code= "952554402" displayName="Diagnosis" /> <statusCode code="completed" /> <value codeSystem="" xsi:type="CD" code="Z79.1" 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 (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)" /> </ observation> </entryRelationship> </act> </entry> <entry typeCode= "DRIV"> <act moodCode="EVN" classCode="ACT"> <templateId root= "08.09.840.1.878757.04.12.22.4.3" /> <id nullFlavor="UNK" /> <code codeSystem="08.09.840.1.430652.5.6" code="CONC" displayName="Concern" /> < statusCode code="completed" /> <effectiveTime> <low value="20161230 " /> </effectiveTime> <entryRelationship typeCode="SUBJ"> < observation moodCode="EVN" classCode="OBS"> <templateId root= "08.09.840.1.287843.04.12.22.4.4" /> <id nullFlavor="UNK" /> < code codeSystem="840.1.777863.6.96" code="835245366" displayName="Diagnosis " /> <statusCode code="completed" /> <value codeSystem="" xsi: type="CD" code="Z79.52" 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" /> </observation> </entryRelationship> </act> </entry > <entry typeCode="DRIV"> <act moodCode="EVN" classCode="ACT"> < templateId root="216.840.1.087707.10.20.22.4.3" /> <id nullFlavor="UNK" / > <code codeSystem="2.840.1.338771.5.6" code="CONC" displayName="Concern " /> <statusCode code="completed" /> <effectiveTime> <low value ="87584267" /> </effectiveTime> <entryRelationship typeCode="SUBJ"> <observation moodCode="EVN" classCode="OBS"> <templateId root= "08.09.840.1.836434.10.22.4.4" /> <id nullFlavor="UNK" /> < code codeSystem="2.840.1.974044.6.96" code="962014671" displayName="Diagnosis " /> <statusCode code="completed" /> <value codeSystem="" xsi: type="CD" code="Z79.82" 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" /> </observation> </entryRelationship> </act> </entry> <entry typeCode="DRIV"> <act moodCode="EVN" classCode="ACT"> <templateId root= "08.09.840.1.293765.10.20.22.4.3" /> <id nullFlavor="UNK" /> <code codeSystem="216.840.1.430400.5.6" code="CONC" displayName="Concern" /> < statusCode code="completed" /> <effectiveTime> <low value="20161230 " /> </effectiveTime> <entryRelationship typeCode="SUBJ"> < observation moodCode="EVN" classCode="OBS"> <templateId root= "08.09.840.1.613320.10.22.4.4" /> <id nullFlavor="UNK" /> < code codeSystem="2.840.1.073012.6.96" code="510402866" displayName="Diagnosis " /> <statusCode code="completed" /> <value codeSystem="" xsi: type="CD" code="Z79.83" 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 " /> </observation> </entryRelationship> </act> </entry> < entry typeCode="DRIV"> <act moodCode="EVN" classCode="ACT"> <templateId root="16.840.1.477764.10..4.3" /> <id nullFlavor="UNK" /> < code codeSystem="2.840.1.732832.5.6" code="CONC" displayName="Concern" /> <statusCode code="completed" /> <effectiveTime> <low value= "20161230" /> </effectiveTime> <entryRelationship typeCode="SUBJ"> <observation moodCode="EVN" classCode="OBS"> <templateId root= "08.09.840.1.665586.10.22.4.4" /> <id nullFlavor="UNK" /> < code codeSystem="216.840.1.077676.6.96" code="363188287" displayName="Diagnosis " /> <statusCode code="completed" /> <value codeSystem="" xsi: type="CD" code="Z79.899" 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" / > </observation> </entryRelationship> </act> </entry> <entry typeCode="DRIV"> <act moodCode="EVN" classCode="ACT"> <templateId root= "16.840.1.551856.10.20.22.4.3" /> <id nullFlavor="UNK" /> <code codeSystem="2.840.1.807244.5.6" code="CONC" displayName="Concern" /> < statusCode code="completed" /> <effectiveTime> <low value="20161230 " /> </effectiveTime> <entryRelationship typeCode="SUBJ"> < observation moodCode="EVN" classCode="OBS"> <templateId root= "16.840.1.391437.10...4.4" /> <id nullFlavor="UNK" /> < code codeSystem="216.840.1.164006.6.96" code="146739256" displayName="Diagnosis " /> <statusCode code="completed" /> <value codeSystem="" xsi: type="CD" code="Z87.442" displayName="Personal history of urinary calculi" /> </observation> </entryRelationship> </act> </entry> <entry typeCode="DRIV"> <act moodCode="EVN" classCode="ACT"> <templateId root= "08.09.840.1.880350.10..22.4.3" /> <id nullFlavor="UNK" /> <code codeSystem="216.840.1.533363.5.6" code="CONC" displayName="Concern" /> < statusCode code="completed" /> <effectiveTime> <low value="20161230 " /> </effectiveTime> <entryRelationship typeCode="SUBJ"> < observation moodCode="EVN" classCode="OBS"> <templateId root= "08.09.840.1.099011.10.20.22.4.4" /> <id nullFlavor="UNK" /> < code codeSystem="840.1.243462.6.96" code="063610565" displayName="Diagnosis " /> <statusCode code="completed" /> <value codeSystem="" xsi: type="CD" code="Z88.0" displayName="Allergy status to penicillin" /> </ observation> </entryRelationship> </act> </entry> <entry typeCode= "DRIV"> <act moodCode="EVN" classCode="ACT"> <templateId root= "08.09.840.1.553968.10.20.22.4.3" /> <id nullFlavor="UNK" /> <code codeSystem="08.09.840.1.736679.5.6" code="CONC" displayName="Concern" /> < statusCode code="completed" /> <effectiveTime> <low value="49963542 " /> </effectiveTime> <entryRelationship typeCode="SUBJ"> < observation moodCode="EVN" classCode="OBS"> <templateId root= "08.09.840.1.984903.10.20.22.4.4" /> <id nullFlavor="UNK" /> < code codeSystem="08.09.840.1.612888.6.96" code="501781458" displayName="Diagnosis " /> <statusCode code="completed" /> <value codeSystem="" xsi: type="CD" code="Z88.1" displayName="Allergy status to other antibiotic agents status" /> </observation> </entryRelationship> </act> </entry> <entry typeCode="DRIV"> <act moodCode="EVN" classCode="ACT"> < templateId root="08.09.840.1.194818.10..4.3" /> <id nullFlavor="UNK" / > <code codeSystem="08.09.840.1.955671.5.6" code="CONC" displayName="Concern " /> <statusCode code="completed" /> <effectiveTime> <low value ="20170215" /> </effectiveTime> <entryRelationship typeCode="SUBJ"> <observation moodCode="EVN" classCode="OBS"> <templateId root= "08.09.840.1.526091.04.12.22.4.4" /> <id nullFlavor="UNK" /> < code codeSystem="08.09.840.1.737660.6.96" code="556445380" displayName="Diagnosis " /> <statusCode code="completed" /> <value codeSystem="" xsi: type="CD" code="S22.31XA" displayName="Fracture of one rib, right side, initial encounter for closed fracture" /> </observation> </entryRelationship > </act> </entry> <entry typeCode="DRIV"> <act moodCode="EVN" classCode= "ACT"> <templateId root="08.09.840.1.681538.10..4.3" /> <id nullFlavor="UNK" /> <code codeSystem="840.1.507036.5.6" code="CONC" displayName="Concern" /> <statusCode code="completed" /> < effectiveTime> <low value="20170215" /> </effectiveTime> < entryRelationship typeCode="SUBJ"> <observation moodCode="EVN" classCode= "OBS"> <templateId root="08.09.840.1.385215.10.20.22.4.4" /> < id nullFlavor="UNK" /> <code codeSystem="216.840.1.739436.6.96" code= "822372030" displayName="Diagnosis" /> <statusCode code="completed" /> <value codeSystem="" xsi:type="CD" code="S59.801A" displayName="Other specified injuries of right elbow, initial encounter" /> </observation> </entryRelationship> </act> </entry> <entry typeCode="DRIV"> <act moodCode="EVN" classCode="ACT"> <templateId root= "2.16.840.1.959600.10..22.4.3" /> <id nullFlavor="UNK" /> <code codeSystem="2.16.840.1.225999.5.6" code="CONC" displayName="Concern" /> < statusCode code="completed" /> <effectiveTime> <low value="82949308 " /> </effectiveTime> <entryRelationship typeCode="SUBJ"> < observation moodCode="EVN" classCode="OBS"> <templateId root= "2.16.840.1.061052.10..22.4.4" /> <id nullFlavor="UNK" /> < code codeSystem="2.16.840.1.912430.6.96" code="940870403" displayName="Diagnosis " /> <statusCode code="completed" /> <value codeSystem="" xsi: type="CD" code="W01.198A" displayName="Fall on same level from slipping, tripping and stumbling with subsequent striking against other object, initial encounter" /> </observation> </entryRelationship> </act> </entry > <entry typeCode="DRIV"> <act moodCode="EVN" classCode="ACT"> < templateId root="08.09.840.1.692162.10..22.4.3" /> <id nullFlavor="UNK" / > <code codeSystem="840.1.026938.5.6" code="CONC" displayName="Concern " /> <statusCode code="completed" /> <effectiveTime> <low value ="20170215" /> </effectiveTime> <entryRelationship typeCode="SUBJ"> <observation moodCode="EVN" classCode="OBS"> <templateId root= "840.1.397340.10..4.4" /> <id nullFlavor="UNK" /> < code codeSystem="08.09.840.1.612054.6.96" code="945155511" displayName="Diagnosis " /> <statusCode code="completed" /> <value codeSystem="" xsi: type="CD" code="Y92.018" displayName="Other place in single-family (private) house as the place of occurrence of the external cause" /> </observation > </entryRelationship> </act> </entry> <entry typeCode="DRIV"> < act moodCode="EVN" classCode="ACT"> <templateId root= "08.09.840.1.098171.10...4.3" /> <id nullFlavor="UNK" /> <code codeSystem="08.09.840.1.841370.5.6" code="CONC" displayName="Concern" /> < statusCode code="completed" /> <effectiveTime> <low value="80061985 " /> </effectiveTime> <entryRelationship typeCode="SUBJ"> < observation moodCode="EVN" classCode="OBS"> <templateId root= "08.09.840.1.996645.04.12.22.4.4" /> <id nullFlavor="UNK" /> < code codeSystem="216.840.1.260024.6.96" code="656810361" displayName="Diagnosis " /> <statusCode code="completed" /> <value codeSystem="" xsi: type="CD" code="R30.0" displayName="Dysuria" /> </observation> </ entryRelationship> </act> </entry> <entry typeCode="DRIV"> <act moodCode ="EVN" classCode="ACT"> <templateId root="216.840.1.348318.04.12.22.4.3" / > <id nullFlavor="UNK" /> <code codeSystem="2.16.840.1.464130.5.6" code="CONC" displayName="Concern" /> <statusCode code="completed" /> < effectiveTime> <low value="29539053" /> </effectiveTime> < entryRelationship typeCode="SUBJ"> <observation moodCode="EVN" classCode= "OBS"> <templateId root="16.840.1.747528.04.12.22.4.4" /> < id nullFlavor="UNK" /> <code codeSystem="2.16.840.1.862907.6.96" code= "628672739" displayName="Diagnosis" /> <statusCode code="completed" /> <value codeSystem="" xsi:type="CD" code="I10" displayName="Essential ( primary) hypertension" /> </observation> </entryRelationship> </ act> </entry> <entry typeCode="DRIV"> <act moodCode="EVN" classCode="ACT"> <templateId root="216.840.1.242084...4.3" /> <id nullFlavor= "UNK" /> <code codeSystem="840.1.629753.5.6" code="CONC" displayName= "Concern" /> <statusCode code="completed" /> <effectiveTime> < low value="62941190" /> </effectiveTime> <entryRelationship typeCode= "SUBJ"> <observation moodCode="EVN" classCode="OBS"> < templateId root="840.1.180414.04.12.22.4.4" /> <id nullFlavor="UNK " /> <code codeSystem="840.1.973369.6.96" code="068890384" displayName="Diagnosis" /> <statusCode code="completed" /> < value codeSystem="" xsi:type="CD" code="J20.9" displayName="Acute bronchitis, unspecified" /> </observation> </entryRelationship> </act> </ entry> <entry typeCode="DRIV"> <act moodCode="EVN" classCode="ACT"> < templateId root="840.1.089028.04.12.22.4.3" /> <id nullFlavor="UNK" / > <code codeSystem="840.1.447456.5.6" code="CONC" displayName="Concern " /> <statusCode code="completed" /> <effectiveTime> <low value ="67824377" /> </effectiveTime> <entryRelationship typeCode="SUBJ"> <observation moodCode="EVN" classCode="OBS"> <templateId root= "840.1.970032.04.12.22.4.4" /> <id nullFlavor="UNK" /> < code codeSystem="840.1.810615.6.96" code="166129699" displayName="Diagnosis " /> <statusCode code="completed" /> <value codeSystem="" xsi: type="CD" code="M43.6" displayName="Torticollis" /> </observation> < /entryRelationship> </act> </entry> <entry typeCode="DRIV"> <act moodCode="EVN" classCode="ACT"> <templateId root= "216.840.1.076603.10.22.4.3" /> <id nullFlavor="UNK" /> <code codeSystem="216.840.1.027623.5.6" code="CONC" displayName="Concern" /> < statusCode code="completed" /> <effectiveTime> <low value="16244976 " /> </effectiveTime> <entryRelationship typeCode="SUBJ"> < observation moodCode="EVN" classCode="OBS"> <templateId root= "16.840.1.787031.10.22.4.4" /> <id nullFlavor="UNK" /> < code codeSystem="216.840.1.971789.6.96" code="110200251" displayName="Diagnosis " /> <statusCode code="completed" /> <value codeSystem="" xsi: type="CD" code="I10" displayName="Essential (primary) hypertension" /> </ observation> </entryRelationship> </act> </entry> <entry typeCode= "DRIV"> <act moodCode="EVN" classCode="ACT"> <templateId root= "08.09.840.1.772420.10.2022.4.3" /> <id nullFlavor="UNK" /> <code codeSystem="216.840.1.992452.5.6" code="CONC" displayName="Concern" /> < statusCode code="completed" /> <effectiveTime> <low value="[id number] " /> </effectiveTime> <entryRelationship typeCode="SUBJ"> < observation moodCode="EVN" classCode="OBS"> <templateId root= "08.09.840.1.077378.10.22.4.4" /> <id nullFlavor="UNK" /> < code codeSystem="08.09.840.1.253280.6.96" code="[id number]" displayName="Diagnosis " /> <statusCode code="completed" /> <value codeSystem="" xsi: type="CD" code="K29.70" displayName="Gastritis, unspecified, without bleeding" / > </observation> </entryRelationship> </act> </entry> <entry typeCode="DRIV"> <act moodCode="EVN" classCode="ACT"> <templateId root= "08.09.840.1.712086.10..4.3" /> <id nullFlavor="UNK" /> <code codeSystem="08.09.840.1.227240.5.6" code="CONC" displayName="Concern" /> < statusCode code="completed" /> <effectiveTime> <low value="[id number] " /> </effectiveTime> <entryRelationship typeCode="SUBJ"> < observation moodCode="EVN" classCode="OBS"> <templateId root= "08.09.840.1.260325.10.22.4.4" /> <id nullFlavor="UNK" /> < code codeSystem="08.09.840.1.250310.6.96" code="[id number]" displayName="Diagnosis " /> <statusCode code="completed" /> <value codeSystem="" xsi: type="CD" code="R07.9" displayName="Chest pain, unspecified" /> </ observation> </entryRelationship> </act> </entry> <entry typeCode= "DRIV"> <act moodCode="EVN" classCode="ACT"> <templateId root= "08.09.840.1.155187.10.20.22.4.3" /> <id nullFlavor="UNK" /> <code codeSystem="08.09.840.1.163637.5.6" code="CONC" displayName="Concern" /> < statusCode code="completed" /> <effectiveTime> <low value="20170627 " /> </effectiveTime> <entryRelationship typeCode="SUBJ"> < observation moodCode="EVN" classCode="OBS"> <templateId root= "08.09.840.1.676741.10..22.4.4" /> <id nullFlavor="UNK" /> < code codeSystem="2.840.1.265694.6.96" code="006835480" displayName="Diagnosis " /> <statusCode code="completed" /> <value codeSystem="" xsi: type="CD" code="R47.1" displayName="Dysarthria and anarthria" /> </ observation> </entryRelationship> </act> </entry> <entry typeCode= "DRIV"> <act moodCode="EVN" classCode="ACT"> <templateId root= "08.09.840.1.252778.10..22.4.3" /> <id nullFlavor="UNK" /> <code codeSystem="2.840.1.213471.5.6" code="CONC" displayName="Concern" /> < statusCode code="completed" /> <effectiveTime> <low value="20170627 " /> </effectiveTime> <entryRelationship typeCode="SUBJ"> < observation moodCode="EVN" classCode="OBS"> <templateId root= "08.09.840.1.468780.10..22.4.4" /> <id nullFlavor="UNK" /> < code codeSystem="840.1.337510.6.96" code="424118520" displayName="Diagnosis " /> <statusCode code="completed" /> <value codeSystem="" xsi: type="CD" code="R53.1" displayName="Weakness" /> </observation> </ entryRelationship> </act> </entry> <entry typeCode="DRIV"> <act moodCode ="EVN" classCode="ACT"> <templateId root="08.09.840.1.660545.10.20.22.4.3" / > <id nullFlavor="UNK" /> <code codeSystem="840.1.213091.5.6" code="CONC" displayName="Concern" /> <statusCode code="completed" /> < effectiveTime> <low value="21303819" /> </effectiveTime> < entryRelationship typeCode="SUBJ"> <observation moodCode="EVN" classCode= "OBS"> <templateId root="08.09.840.1.487068.10..22.4.4" /> < id nullFlavor="UNK" /> <code codeSystem="840.1.919506.6.96" code= "950102791" displayName="Diagnosis" /> <statusCode code="completed" /> <value codeSystem="" xsi:type="CD" code="J09.X2" displayName= "Influenza due to identified novel influenza A virus with other respiratory manifestations" /> </observation> </entryRelationship> </act> </ entry> <entry typeCode="DRIV"> <act moodCode="EVN" classCode="ACT"> < templateId root="08.09.840.1.790497.10..4.3" /> <id nullFlavor="UNK" / > <code codeSystem="08.09.840.1.137834.5.6" code="CONC" displayName="Concern " /> <statusCode code="completed" /> <effectiveTime> <low value ="48086942" /> </effectiveTime> <entryRelationship typeCode="SUBJ"> <observation moodCode="EVN" classCode="OBS"> <templateId root= "840.1.877206.04.12.22.4.4" /> <id nullFlavor="UNK" /> < code codeSystem="08.09.840.1.927527.6.96" code="883022744" displayName="Diagnosis " /> <statusCode code="completed" /> <value codeSystem="" xsi: type="CD" code="R05" displayName="Cough" /> </observation> </ entryRelationship> </act> </entry> <entry typeCode="DRIV"> <act moodCode ="EVN" classCode="ACT"> <templateId root="08.09.840.1.798557.10...4.3" / > <id nullFlavor="UNK" /> <code codeSystem="08.09.840.1.192747.5.6" code="CONC" displayName="Concern" /> <statusCode code="completed" /> < effectiveTime> <low value="28156509" /> </effectiveTime> < entryRelationship typeCode="SUBJ"> <observation moodCode="EVN" classCode= "OBS"> <templateId root="08.09.840.1.615760.10..4.4" /> < id nullFlavor="UNK" /> <code codeSystem="216.840.1.445088.6.96" code= "026501833" displayName="Diagnosis" /> <statusCode code="completed" /> <value codeSystem="" xsi:type="CD" code="M25.512" displayName="Pain in left shoulder" /> </observation> </entryRelationship> </act> </entry> <entry typeCode="DRIV"> <act moodCode="EVN" classCode="ACT"> < templateId root="2.16.840.1.743254.10..22.4.3" /> <id nullFlavor="UNK" / > <code codeSystem="216.840.1.208649.5.6" code="CONC" displayName="Concern " /> <statusCode code="completed" /> <effectiveTime> <low value ="02046343" /> </effectiveTime> <entryRelationship typeCode="SUBJ"> <observation moodCode="EVN" classCode="OBS"> <templateId root= "216.840.1.023214...4.4" /> <id nullFlavor="UNK" /> < code codeSystem="2.16.840.1.791112.6.96" code="155950290" displayName="Diagnosis " /> <statusCode code="completed" /> <value codeSystem="" xsi: type="CD" code="Z51.89" displayName="Encounter for other specified aftercare" / > </observation> </entryRelationship> </act> </entry> <entry typeCode="DRIV"> <act moodCode="EVN" classCode="ACT"> <templateId root= "216.840.1.579429.10..22.4.3" /> <id nullFlavor="UNK" /> <code codeSystem="08.09.840.1.346630.5.6" code="CONC" displayName="Concern" /> < statusCode code="completed" /> <effectiveTime> <low value="79890922 " /> </effectiveTime> <entryRelationship typeCode="SUBJ"> < observation moodCode="EVN" classCode="OBS"> <templateId root= "08.09.840.1.722861...4.4" /> <id nullFlavor="UNK" /> < code codeSystem="840.1.853796.6.96" code="836967175" displayName="Diagnosis " /> <statusCode code="completed" /> <value codeSystem="" xsi: type="CD" code="M25.512" displayName="Pain in left shoulder" /> </ observation> </entryRelationship> </act> </entry> <entry typeCode= "DRIV"> <act moodCode="EVN" classCode="ACT"> <templateId root= "08.09.840.1.000318.04.12.22.4.3" /> <id nullFlavor="UNK" /> <code codeSystem="08.09.840.1.423701.5.6" code="CONC" displayName="Concern" /> < statusCode code="completed" /> <effectiveTime> <low value="20170708 " /> </effectiveTime> <entryRelationship typeCode="SUBJ"> < observation moodCode="EVN" classCode="OBS"> <templateId root= "08.09.840.1.602425.04.12.22.4.4" /> <id nullFlavor="UNK" /> < code codeSystem="08.09.840.1.519426.6.96" code="418451702" displayName="Diagnosis " /> <statusCode code="completed" /> <value codeSystem="" xsi: type="CD" code="Z51.89" displayName="Encounter for other specified aftercare" / > </observation> </entryRelationship> </act> </entry> <entry typeCode="DRIV"> <act moodCode="EVN" classCode="ACT"> <templateId root= "216.840.1.380403.10.20.22.4.3" /> <id nullFlavor="UNK" /> <code codeSystem="216.840.1.312512.5.6" code="CONC" displayName="Concern" /> < statusCode code="completed" /> <effectiveTime> <low value="98902011 " /> </effectiveTime> <entryRelationship typeCode="SUBJ"> < observation moodCode="EVN" classCode="OBS"> <templateId root= "08.09.840.1.735035.10.2022.4.4" /> <id nullFlavor="UNK" /> < code codeSystem="216.840.1.771036.6.96" code="875562718" displayName="Diagnosis " /> <statusCode code="completed" /> <value codeSystem="" xsi: type="CD" code="M25.512" displayName="Pain in left shoulder" /> </ observation> </entryRelationship> </act> </entry> <entry typeCode= "DRIV"> <act moodCode="EVN" classCode="ACT"> <templateId root= "08.09.840.1.244194.10.2022.4.3" /> <id nullFlavor="UNK" /> <code codeSystem="2.840.1.136883.5.6" code="CONC" displayName="Concern" /> < statusCode code="completed" /> <effectiveTime> <low value="70504560 " /> </effectiveTime> <entryRelationship typeCode="SUBJ"> < observation moodCode="EVN" classCode="OBS"> <templateId root= "08.09.840.1.191728.10.22.4.4" /> <id nullFlavor="UNK" /> < code codeSystem="840.1.004494.6.96" code="674860424" displayName="Diagnosis " /> <statusCode code="completed" /> <value codeSystem="" xsi: type="CD" code="Z51.89" displayName="Encounter for other specified aftercare" / > </observation> </entryRelationship> </act> </entry> <entry typeCode="DRIV"> <act moodCode="EVN" classCode="ACT"> <templateId root= "08.09.840.1.643144.10..4.3" /> <id nullFlavor="UNK" /> <code codeSystem="08.09.840.1.226545.5.6" code="CONC" displayName="Concern" /> < statusCode code="completed" /> <effectiveTime> <low value="63873703 " /> </effectiveTime> <entryRelationship typeCode="SUBJ"> < observation moodCode="EVN" classCode="OBS"> <templateId root= "08.09.840.1.612375.10.22.4.4" /> <id nullFlavor="UNK" /> < code codeSystem="08.09.840.1.994854.6.96" code="522420967" displayName="Diagnosis " /> <statusCode code="completed" /> <value codeSystem="" xsi: type="CD" code="M25.512" displayName="Pain in left shoulder" /> </ observation> </entryRelationship> </act> </entry> <entry typeCode= "DRIV"> <act moodCode="EVN" classCode="ACT"> <templateId root= "08.09.840.1.732236.10..22.4.3" /> <id nullFlavor="UNK" /> <code codeSystem="08.09.840.1.606224.5.6" code="CONC" displayName="Concern" /> < statusCode code="completed" /> <effectiveTime> <low value="20170719 " /> </effectiveTime> <entryRelationship typeCode="SUBJ"> < observation moodCode="EVN" classCode="OBS"> <templateId root= "08.09.840.1.780866.10..4.4" /> <id nullFlavor="UNK" /> < code codeSystem="2.840.1.466433.6.96" code="681559142" displayName="Diagnosis " /> <statusCode code="completed" /> <value codeSystem="" xsi: type="CD" code="Z51.89" displayName="Encounter for other specified aftercare" / > </observation> </entryRelationship> </act> </entry> <entry typeCode="DRIV"> <act moodCode="EVN" classCode="ACT"> <templateId root= "08.09.840.1.389901.10..4.3" /> <id nullFlavor="UNK" /> <code codeSystem="216.840.1.460306.5.6" code="CONC" displayName="Concern" /> < statusCode code="completed" /> <effectiveTime> <low value="20170719 " /> </effectiveTime> <entryRelationship typeCode="SUBJ"> < observation moodCode="EVN" classCode="OBS"> <templateId root= "08.09.840.1.902592.10.20.22.4.4" /> <id nullFlavor="UNK" /> < code codeSystem="840.1.871195.6.96" code="971434956" displayName="Diagnosis " /> <statusCode code="completed" /> <value codeSystem="" xsi: type="CD" code="J22" displayName="Unspecified acute lower respiratory infection " /> </observation> </entryRelationship> </act> </entry> < entry typeCode="DRIV"> <act moodCode="EVN" classCode="ACT"> <templateId root="08.09.840.1.144910.10.20.22.4.3" /> <id nullFlavor="UNK" /> < code codeSystem="2.840.1.166501.5.6" code="CONC" displayName="Concern" /> <statusCode code="completed" /> <effectiveTime> <low value= "88978360" /> </effectiveTime> <entryRelationship typeCode="SUBJ"> <observation moodCode="EVN" classCode="OBS"> <templateId root= "08.09.840.1.012971.10.20.22.4.4" /> <id nullFlavor="UNK" /> < code codeSystem="08.09.840.1.101119.6.96" code="875440862" displayName="Diagnosis " /> <statusCode code="completed" /> <value codeSystem="" xsi: type="CD" code="R53.83" displayName="Other fatigue" /> </observation> </entryRelationship> </act> </entry> <entry typeCode="DRIV"> <act moodCode="EVN" classCode="ACT"> <templateId root= "840.1.944008.10..22.4.3" /> <id nullFlavor="UNK" /> <code codeSystem="840.1.945062.5.6" code="CONC" displayName="Concern" /> < statusCode code="completed" /> <effectiveTime> <low value="57634519 " /> </effectiveTime> <entryRelationship typeCode="SUBJ"> < observation moodCode="EVN" classCode="OBS"> <templateId root= "840.1.661537.10..4.4" /> <id nullFlavor="UNK" /> < code codeSystem="08.09.840.1.388716.6.96" code="561479956" displayName="Diagnosis " /> <statusCode code="completed" /> <value codeSystem="" xsi: type="CD" code="I10" displayName="Essential (primary) hypertension" /> </ observation> </entryRelationship> </act> </entry> <entry typeCode= "DRIV"> <act moodCode="EVN" classCode="ACT"> <templateId root= "08.09.840.1.329475.10..22.4.3" /> <id nullFlavor="UNK" /> <code codeSystem="840.1.025549.5.6" code="CONC" displayName="Concern" /> < statusCode code="completed" /> <effectiveTime> <low value="83992023 " /> </effectiveTime> <entryRelationship typeCode="SUBJ"> < observation moodCode="EVN" classCode="OBS"> <templateId root= "08.09.840.1.703044.10..22.4.4" /> <id nullFlavor="UNK" /> < code codeSystem="216.840.1.252720.6.96" code="681194217" displayName="Diagnosis " /> <statusCode code="completed" /> <value codeSystem="" xsi: type="CD" code="K29.00" displayName="Acute gastritis without bleeding" /> </observation> </entryRelationship> </act> </entry> <entry typeCode= "DRIV"> <act moodCode="EVN" classCode="ACT"> <templateId root= "16.840.1.420659.10.20.22.4.3" /> <id nullFlavor="UNK" /> <code codeSystem="216.840.1.345451.5.6" code="CONC" displayName="Concern" /> < statusCode code="completed" /> <effectiveTime> <low value="20399890 " /> </effectiveTime> <entryRelationship typeCode="SUBJ"> < observation moodCode="EVN" classCode="OBS"> <templateId root= "08.09.840.1.533523.10..22.4.4" /> <id nullFlavor="UNK" /> < code codeSystem="216.840.1.566126.6.96" code="128558880" displayName="Diagnosis " /> <statusCode code="completed" /> <value codeSystem="" xsi: type="CD" code="R07.9" displayName="Chest pain, unspecified" /> </ observation> </entryRelationship> </act> </entry> <entry typeCode= "DRIV"> <act moodCode="EVN" classCode="ACT"> <templateId root= "16.840.1.936759.10.20.22.4.3" /> <id nullFlavor="UNK" /> <code codeSystem="840.1.925546.5.6" code="CONC" displayName="Concern" /> < statusCode code="completed" /> <effectiveTime> <low value="20170819 " /> </effectiveTime> <entryRelationship typeCode="SUBJ"> < observation moodCode="EVN" classCode="OBS"> <templateId root= "840.1.730540.10..4.4" /> <id nullFlavor="UNK" /> < code codeSystem="840.1.999917.6.96" code="040745589" displayName="Diagnosis " /> <statusCode code="completed" /> <value codeSystem="" xsi: type="CD" code="R10.9" displayName="Unspecified abdominal pain" /> </ observation> </entryRelationship> </act> </entry> <entry typeCode= "DRIV"> <act moodCode="EVN" classCode="ACT"> <templateId root= "840.1.556590.04.12.22.4.3" /> <id nullFlavor="UNK" /> <code codeSystem="840.1.446988.5.6" code="CONC" displayName="Concern" /> < statusCode code="completed" /> <effectiveTime> <low value="20170917 " /> </effectiveTime> <entryRelationship typeCode="SUBJ"> < observation moodCode="EVN" classCode="OBS"> <templateId root= "840.1.547667.04.12.22.4.4" /> <id nullFlavor="UNK" /> < code codeSystem="840.1.180008.6.96" code="153508481" displayName="Diagnosis " /> <statusCode code="completed" /> <value codeSystem="I9" xsi:type="CD" code="379.21" displayName="VitreousDegenerationDetachment" /> </observation> </entryRelationship> </act> </entry> <entry typeCode="DRIV"> <act moodCode="EVN" classCode="ACT"> <templateId root= "2.840.1.403792.10.22.4.3" /> <id nullFlavor="UNK" /> <code codeSystem="2.840.1.401357.5.6" code="CONC" displayName="Concern" /> < statusCode code="completed" /> <effectiveTime> <low value="57401915 " /> </effectiveTime> <entryRelationship typeCode="SUBJ"> < observation moodCode="EVN" classCode="OBS"> <templateId root= "08.09.840.1.314104.10.22.4.4" /> <id nullFlavor="UNK" /> < code codeSystem="2.840.1.987605.6.96" code="467280132" displayName="Diagnosis " /> <statusCode code="completed" /> <value codeSystem="" xsi: type="CD" code="Z12.31" displayName="Encounter for screening mammogram for malignant neoplasm of breast" /> </observation> </entryRelationship > </act> </entry> <entry typeCode="DRIV"> <act moodCode="EVN" classCode= "ACT"> <templateId root="08.09.840.1.072327.10.2022.4.3" /> <id nullFlavor="UNK" /> <code codeSystem="2.840.1.215619.5.6" code="CONC" displayName="Concern" /> <statusCode code="completed" /> < effectiveTime> <low value="20171023" /> </effectiveTime> < entryRelationship typeCode="SUBJ"> <observation moodCode="EVN" classCode= "OBS"> <templateId root="08.09.840.1.567665.10..4.4" /> < id nullFlavor="UNK" /> <code codeSystem="840.1.855474.6.96" code= "679150942" displayName="Diagnosis" /> <statusCode code="completed" /> <value codeSystem="" xsi:type="CD" code="M54.32" displayName="Sciatica , left side" /> </observation> </entryRelationship> </act> </ entry> <entry typeCode="DRIV"> <act moodCode="EVN" classCode="ACT"> < templateId root="840.1.164020.10..4.3" /> <id nullFlavor="UNK" / > <code codeSystem="08.09.840.1.161688.5.6" code="CONC" displayName="Concern " /> <statusCode code="completed" /> <effectiveTime> <low value ="20171023" /> </effectiveTime> <entryRelationship typeCode="SUBJ"> <observation moodCode="EVN" classCode="OBS"> <templateId root= "08.09.840.1.401070.10.22.4.4" /> <id nullFlavor="UNK" /> < code codeSystem="08.09.840.1.846586.6.96" code="057541437" displayName="Diagnosis " /> <statusCode code="completed" /> <value codeSystem="" xsi: type="CD" code="Z51.89" displayName="Encounter for other specified aftercare" / > </observation> </entryRelationship> </act> </entry> <entry typeCode="DRIV"> <act moodCode="EVN" classCode="ACT"> <templateId root= "08.09.840.1.685394.10..22.4.3" /> <id nullFlavor="UNK" /> <code codeSystem="08.09.840.1.271261.5.6" code="CONC" displayName="Concern" /> < statusCode code="completed" /> <effectiveTime> <low value="20171023 " /> </effectiveTime> <entryRelationship typeCode="SUBJ"> < observation moodCode="EVN" classCode="OBS"> <templateId root= "08.09.840.1.426782.10..22.4.4" /> <id nullFlavor="UNK" /> < code codeSystem="2.840.1.040433.6.96" code="688167616" displayName="Diagnosis " /> <statusCode code="completed" /> <value codeSystem="" xsi: type="CD" code="M54.32" displayName="Sciatica, left side" /> </ observation> </entryRelationship> </act> </entry> <entry typeCode= "DRIV"> <act moodCode="EVN" classCode="ACT"> <templateId root= "08.09.840.1.343083.10..4.3" /> <id nullFlavor="UNK" /> <code codeSystem="08.09.840.1.325846.5.6" code="CONC" displayName="Concern" /> < statusCode code="completed" /> <effectiveTime> <low value="20171023 " /> </effectiveTime> <entryRelationship typeCode="SUBJ"> < observation moodCode="EVN" classCode="OBS"> <templateId root= "08.09.840.1.836704.10..22.4.4" /> <id nullFlavor="UNK" /> < code codeSystem="840.1.371024.6.96" code="665551021" displayName="Diagnosis " /> <statusCode code="completed" /> <value codeSystem="" xsi: type="CD" code="Z51.89" displayName="Encounter for other specified aftercare" / > </observation> </entryRelationship> </act> </entry> <entry typeCode="DRIV"> <act moodCode="EVN" classCode="ACT"> <templateId root= "08.09.840.1.613712.10..22.4.3" /> <id nullFlavor="UNK" /> <code codeSystem="840.1.709839.5.6" code="CONC" displayName="Concern" /> < statusCode code="completed" /> <effectiveTime> <low value="61876601 " /> </effectiveTime> <entryRelationship typeCode="SUBJ"> < observation moodCode="EVN" classCode="OBS"> <templateId root= "08.09.840.1.246312.10..22.4.4" /> <id nullFlavor="UNK" /> < code codeSystem="08.09.840.1.092376.6.96" code="139732145" displayName="Diagnosis " /> <statusCode code="completed" /> <value codeSystem="" xsi: type="CD" code="M54.32" displayName="Sciatica, left side" /> </ observation> </entryRelationship> </act> </entry> <entry typeCode= "DRIV"> <act moodCode="EVN" classCode="ACT"> <templateId root= "840.1.805181.10...4.3" /> <id nullFlavor="UNK" /> <code codeSystem="840.1.506358.5.6" code="CONC" displayName="Concern" /> < statusCode code="completed" /> <effectiveTime> <low value="20171023 " /> </effectiveTime> <entryRelationship typeCode="SUBJ"> < observation moodCode="EVN" classCode="OBS"> <templateId root= "840.1.959613...4.4" /> <id nullFlavor="UNK" /> < code codeSystem="840.1.508347.6.96" code="714393645" displayName="Diagnosis " /> <statusCode code="completed" /> <value codeSystem="" xsi: type="CD" code="Z51.89" displayName="Encounter for other specified aftercare" / > </observation> </entryRelationship> </act> </entry> <entry typeCode="DRIV"> <act moodCode="EVN" classCode="ACT"> <templateId root= "08.09.840.1.581094.10...4.3" /> <id nullFlavor="UNK" /> <code codeSystem="840.1.794189.5.6" code="CONC" displayName="Concern" /> < statusCode code="completed" /> <effectiveTime> <low value="20171123 " /> </effectiveTime> <entryRelationship typeCode="SUBJ"> < observation moodCode="EVN" classCode="OBS"> <templateId root= "08.09.840.1.826395.10..4.4" /> <id nullFlavor="UNK" /> < code codeSystem="216.840.1.757782.6.96" code="024536865" displayName="Diagnosis " /> <statusCode code="completed" /> <value codeSystem="I10" xsi:type="CD" code="G47.31" displayName="Primary central sleep apnea" /> </observation> </entryRelationship> </act> </entry> <entry typeCode= "DRIV"> <act moodCode="EVN" classCode="ACT"> <templateId root= "216.840.1.345865.10..4.3" /> <id nullFlavor="UNK" /> <code codeSystem="216.840.1.072464.5.6" code="CONC" displayName="Concern" /> < statusCode code="completed" /> <effectiveTime> <low value="02451640 " /> </effectiveTime> <entryRelationship typeCode="SUBJ"> < observation moodCode="EVN" classCode="OBS"> <templateId root= "216.840.1.006514.10..4.4" /> <id nullFlavor="UNK" /> < code codeSystem="2.16.840.1.885855.6.96" code="588871941" displayName="Diagnosis " /> <statusCode code="completed" /> <value codeSystem="" xsi: type="CD" code="I10" displayName="Essential (primary) hypertension" /> </ observation> </entryRelationship> </act> </entry> <entry typeCode= "DRIV"> <act moodCode="EVN" classCode="ACT"> <templateId root= "216.840.1.100840.10.22.4.3" /> <id nullFlavor="UNK" /> <code codeSystem="840.1.115544.5.6" code="CONC" displayName="Concern" /> < statusCode code="completed" /> <effectiveTime> <low value="70064963 " /> </effectiveTime> <entryRelationship typeCode="SUBJ"> < observation moodCode="EVN" classCode="OBS"> <templateId root= "840.1.736776...4.4" /> <id nullFlavor="UNK" /> < code codeSystem="840.1.986702.6.96" code="437468001" displayName="Diagnosis " /> <statusCode code="completed" /> <value codeSystem="" xsi: type="CD" code="I20.9" displayName="Angina pectoris, unspecified" /> </ observation> </entryRelationship> </act> </entry> <entry typeCode= "DRIV"> <act moodCode="EVN" classCode="ACT"> <templateId root= "840.1.821216.04.12.22.4.3" /> <id nullFlavor="UNK" /> <code codeSystem="840.1.011341.5.6" code="CONC" displayName="Concern" /> < statusCode code="completed" /> <effectiveTime> <low value="13925771 " /> </effectiveTime> <entryRelationship typeCode="SUBJ"> < observation moodCode="EVN" classCode="OBS"> <templateId root= "840.1.171426.04.12.22.4.4" /> <id nullFlavor="UNK" /> < code codeSystem="840.1.947691.6.96" code="329096511" displayName="Diagnosis " /> <statusCode code="completed" /> <value codeSystem="" xsi: type="CD" code="J44.9" displayName="Chronic obstructive pulmonary disease, unspecified" /> </observation> </entryRelationship> </act> </ entry> <entry typeCode="DRIV"> <act moodCode="EVN" classCode="ACT"> < templateId root="216.840.1.387224.10.22.4.3" /> <id nullFlavor="UNK" / > <code codeSystem="216.840.1.525532.5.6" code="CONC" displayName="Concern " /> <statusCode code="completed" /> <effectiveTime> <low value ="03558707" /> </effectiveTime> <entryRelationship typeCode="SUBJ"> <observation moodCode="EVN" classCode="OBS"> <templateId root= "216.840.1.639378.10.22.4.4" /> <id nullFlavor="UNK" /> < code codeSystem="216.840.1.274322.6.96" code="389653288" displayName="Diagnosis " /> <statusCode code="completed" /> <value codeSystem="" xsi: type="CD" code="R06.02" displayName="Shortness of breath" /> </ observation> </entryRelationship> </act> </entry> <entry typeCode= "DRIV"> <act moodCode="EVN" classCode="ACT"> <templateId root= "[id number]" /> <id nullFlavor="UNK" /> <code codeSystem="216.840.1.489174.5.6" code="CONC" displayName="Concern" /> < statusCode code="completed" /> <effectiveTime> <low value="[id number] " /> </effectiveTime> <entryRelationship typeCode="SUBJ"> < observation moodCode="EVN" classCode="OBS"> <templateId root= "08.09.840.1.574479.10.22.4.4" /> <id nullFlavor="UNK" /> < code codeSystem="840.1.328846.6.96" code="[id number]" displayName="Diagnosis " /> <statusCode code="completed" /> <value codeSystem="" xsi: type="CD" code="R07.9" displayName="Chest pain, unspecified" /> </ observation> </entryRelationship> </act> </entry> <entry typeCode= "DRIV"> <act moodCode="EVN" classCode="ACT"> <templateId root= "08.09.840.1.152433.10.22.4.3" /> <id nullFlavor="UNK" /> <code codeSystem="08.09.840.1.433151.5.6" code="CONC" displayName="Concern" /> < statusCode code="completed" /> <effectiveTime> <low value="[id number] " /> </effectiveTime> <entryRelationship typeCode="SUBJ"> < observation moodCode="EVN" classCode="OBS"> <templateId root= "08.09.840.1.119878.10.22.4.4" /> <id nullFlavor="UNK" /> < code codeSystem="08.09.840.1.361254.6.96" code="067356974" displayName="Diagnosis " /> <statusCode code="completed" /> <value codeSystem="" xsi: type="CD" code="M54.32" displayName="Sciatica, left side" /> </ observation> </entryRelationship> </act> </entry> <entry typeCode= "DRIV"> <act moodCode="EVN" classCode="ACT"> <templateId root= "08.09.840.1.800564.10.20.22.4.3" /> <id nullFlavor="UNK" /> <code codeSystem="08.09.840.1.097330.5.6" code="CONC" displayName="Concern" /> < statusCode code="completed" /> <effectiveTime> <low value="90642258 " /> </effectiveTime> <entryRelationship typeCode="SUBJ"> < observation moodCode="EVN" classCode="OBS"> <templateId root= "08.09.840.1.341219.10..22.4.4" /> <id nullFlavor="UNK" /> < code codeSystem="2.840.1.136235.6.96" code="289991443" displayName="Diagnosis " /> <statusCode code="completed" /> <value codeSystem="" xsi: type="CD" code="Z51.89" displayName="Encounter for other specified aftercare" / > </observation> </entryRelationship> </act> </entry> <entry typeCode="DRIV"> <act moodCode="EVN" classCode="ACT"> <templateId root= "08.09.840.1.765797.10..22.4.3" /> <id nullFlavor="UNK" /> <code codeSystem="08.09.840.1.615546.5.6" code="CONC" displayName="Concern" /> < statusCode code="completed" /> <effectiveTime> <low value="20171219 " /> </effectiveTime> <entryRelationship typeCode="SUBJ"> < observation moodCode="EVN" classCode="OBS"> <templateId root= "08.09.840.1.454573.10.20.22.4.4" /> <id nullFlavor="UNK" /> < code codeSystem="08.09.840.1.809457.6.96" code="858011418" displayName="Diagnosis " /> <statusCode code="completed" /> <value codeSystem="" xsi: type="CD" code="N89.8" displayName="Other specified noninflammatory disorders of vagina" /> </observation> </entryRelationship> </act> </entry > <entry typeCode="DRIV"> <act moodCode="EVN" classCode="ACT"> < templateId root="08.09.840.1.292338.10.20.22.4.3" /> <id nullFlavor="UNK" / > <code codeSystem="2.840.1.042179.5.6" code="CONC" displayName="Concern " /> <statusCode code="completed" /> <effectiveTime> <low value ="09649307" /> </effectiveTime> <entryRelationship typeCode="SUBJ"> <observation moodCode="EVN" classCode="OBS"> <templateId root= "08.09.840.1.331794.10.20.22.4.4" /> <id nullFlavor="UNK" /> < code codeSystem="08.09.840.1.887361.6.96" code="900715617" displayName="Diagnosis " /> <statusCode code="completed" /> <value codeSystem="" xsi: type="CD" code="I10" displayName="Essential (primary) hypertension" /> </ observation> </entryRelationship> </act> </entry> <entry typeCode= "DRIV"> <act moodCode="EVN" classCode="ACT"> <templateId root= "840.1.661708.10..4.3" /> <id nullFlavor="UNK" /> <code codeSystem="840.1.692077.5.6" code="CONC" displayName="Concern" /> < statusCode code="completed" /> <effectiveTime> <low value="20171230 " /> </effectiveTime> <entryRelationship typeCode="SUBJ"> < observation moodCode="EVN" classCode="OBS"> <templateId root= "840.1.543066...4.4" /> <id nullFlavor="UNK" /> < code codeSystem="840.1.325605.6.96" code="160175159" displayName="Diagnosis " /> <statusCode code="completed" /> <value codeSystem="" xsi: type="CD" code="J44.9" displayName="Chronic obstructive pulmonary disease, unspecified" /> </observation> </entryRelationship> </act> </ entry> <entry typeCode="DRIV"> <act moodCode="EVN" classCode="ACT"> < templateId root="840.1.271575.10...4.3" /> <id nullFlavor="UNK" / > <code codeSystem="840.1.840776.5.6" code="CONC" displayName="Concern " /> <statusCode code="completed" /> <effectiveTime> <low value ="52960633" /> </effectiveTime> <entryRelationship typeCode="SUBJ"> <observation moodCode="EVN" classCode="OBS"> <templateId root= "840.1.812369.04.12.22.4.4" /> <id nullFlavor="UNK" /> < code codeSystem="216.840.1.216083.6.96" code="191903331" displayName="Diagnosis " /> <statusCode code="completed" /> <value codeSystem="" xsi: type="CD" code="R07.89" displayName="Other chest pain" /> </observation> </entryRelationship> </act> </entry> <entry typeCode="DRIV"> <act moodCode="EVN" classCode="ACT"> <templateId root= "216.840.1.718493.04.12.22.4.3" /> <id nullFlavor="UNK" /> <code codeSystem="216.840.1.322070.5.6" code="CONC" displayName="Concern" /> < statusCode code="completed" /> <effectiveTime> <low value="29607592 " /> </effectiveTime> <entryRelationship typeCode="SUBJ"> < observation moodCode="EVN" classCode="OBS"> <templateId root= "16.840.1.859277.04.12.22.4.4" /> <id nullFlavor="UNK" /> < code codeSystem="216.840.1.097387.6.96" code="830249959" displayName="Diagnosis " /> <statusCode code="completed" /> <value codeSystem="" xsi: type="CD" code="R30.9" displayName="Painful micturition, unspecified" /> </observation> </entryRelationship> </act> </entry> <entry typeCode= "DRIV"> <act moodCode="EVN" classCode="ACT"> <templateId root= "216.840.1.224058.04.12.22.4.3" /> <id nullFlavor="UNK" /> <code codeSystem="840.1.355302.5.6" code="CONC" displayName="Concern" /> < statusCode code="completed" /> <effectiveTime> <low value="34200440 " /> </effectiveTime> <entryRelationship typeCode="SUBJ"> < observation moodCode="EVN" classCode="OBS"> <templateId root= "840.1.279592.04.12.224.4" /> <id nullFlavor="UNK" /> < code codeSystem="840.1.573929.6.96" code="922721900" displayName="Diagnosis " /> <statusCode code="completed" /> <value codeSystem="" xsi: type="CD" code="I10" displayName="Essential (primary) hypertension" /> </ observation> </entryRelationship> </act> </entry> <entry typeCode= "DRIV"> <act moodCode="EVN" classCode="ACT"> <templateId root= "840.1.423877.04.12.224.3" /> <id nullFlavor="UNK" /> <code codeSystem="840.1.920326.5.6" code="CONC" displayName="Concern" /> < statusCode code="completed" /> <effectiveTime> <low value="30951647 " /> </effectiveTime> <entryRelationship typeCode="SUBJ"> < observation moodCode="EVN" classCode="OBS"> <templateId root= "08.09.840.1.129740.04.12.22.4.4" /> <id nullFlavor="UNK" /> < code codeSystem="08.09.840.1.840006.6.96" code="619054519" displayName="Diagnosis " /> <statusCode code="completed" /> <value codeSystem="" xsi: type="CD" code="K21.9" displayName="Gastro-esophageal reflux disease without esophagitis" /> </observation> </entryRelationship> </act> </ entry> <entry typeCode="DRIV"> <act moodCode="EVN" classCode="ACT"> < templateId root="216.840.1.676571.10..22.4.3" /> <id nullFlavor="UNK" / > <code codeSystem="216.840.1.779348.5.6" code="CONC" displayName="Concern " /> <statusCode code="completed" /> <effectiveTime> <low value ="19933319" /> </effectiveTime> <entryRelationship typeCode="SUBJ"> <observation moodCode="EVN" classCode="OBS"> <templateId root= "08.09.840.1.878869.10..22.4.4" /> <id nullFlavor="UNK" /> < code codeSystem="2.840.1.549131.6.96" code="627716767" displayName="Diagnosis " /> <statusCode code="completed" /> <value codeSystem="" xsi: type="CD" code="N39.0" displayName="Urinary tract infection, site not specified " /> </observation> </entryRelationship> </act> </entry> < entry typeCode="DRIV"> <act moodCode="EVN" classCode="ACT"> <templateId root="08.09.840.1.912040.10..22.4.3" /> <id nullFlavor="UNK" /> < code codeSystem="216.840.1.891428.5.6" code="CONC" displayName="Concern" /> <statusCode code="completed" /> <effectiveTime> <low value= "20180115" /> </effectiveTime> <entryRelationship typeCode="SUBJ"> <observation moodCode="EVN" classCode="OBS"> <templateId root= "840.1.420170.10..4.4" /> <id nullFlavor="UNK" /> < code codeSystem="840.1.736600.6.96" code="890124530" displayName="Diagnosis " /> <statusCode code="completed" /> <value codeSystem="" xsi: type="CD" code="R10.32" displayName="Left lower quadrant pain" /> </ observation> </entryRelationship> </act> </entry> <entry typeCode= "DRIV"> <act moodCode="EVN" classCode="ACT"> <templateId root= "840.1.202581.10..4.3" /> <id nullFlavor="UNK" /> <code codeSystem="840.1.142638.5.6" code="CONC" displayName="Concern" /> < statusCode code="completed" /> <effectiveTime> <low value="20180115 " /> </effectiveTime> <entryRelationship typeCode="SUBJ"> < observation moodCode="EVN" classCode="OBS"> <templateId root= "840.1.148137.10..4.4" /> <id nullFlavor="UNK" /> < code codeSystem="08.09.840.1.628352.6.96" code="239174508" displayName="Diagnosis " /> <statusCode code="completed" /> <value codeSystem="" xsi: type="CD" code="I10" displayName="Essential (primary) hypertension" /> </ observation> </entryRelationship> </act> </entry> <entry typeCode= "DRIV"> <act moodCode="EVN" classCode="ACT"> <templateId root= "08.09.840.1.005082.10.20.22.4.3" /> <id nullFlavor="UNK" /> <code codeSystem="08.09.840.1.966349.5.6" code="CONC" displayName="Concern" /> < statusCode code="completed" /> <effectiveTime> <low value="20180115 " /> </effectiveTime> <entryRelationship typeCode="SUBJ"> < observation moodCode="EVN" classCode="OBS"> <templateId root= "08.09.840.1.333044.10...4.4" /> <id nullFlavor="UNK" /> < code codeSystem="2.840.1.816918.6.96" code="638006110" displayName="Diagnosis " /> <statusCode code="completed" /> <value codeSystem="" xsi: type="CD" code="K21.9" displayName="Gastro-esophageal reflux disease without esophagitis" /> </observation> </entryRelationship> </act> </ entry> <entry typeCode="DRIV"> <act moodCode="EVN" classCode="ACT"> < templateId root="08.09.840.1.020973.10..22.4.3" /> <id nullFlavor="UNK" / > <code codeSystem="08.09.840.1.822300.5.6" code="CONC" displayName="Concern " /> <statusCode code="completed" /> <effectiveTime> <low value ="20180115" /> </effectiveTime> <entryRelationship typeCode="SUBJ"> <observation moodCode="EVN" classCode="OBS"> <templateId root= "08.09.840.1.400390.10.20.22.4.4" /> <id nullFlavor="UNK" /> < code codeSystem="840.1.437088.6.96" code="478772222" displayName="Diagnosis " /> <statusCode code="completed" /> <value codeSystem="" xsi: type="CD" code="N39.0" displayName="Urinary tract infection, site not specified " /> </observation> </entryRelationship> </act> </entry> < entry typeCode="DRIV"> <act moodCode="EVN" classCode="ACT"> <templateId root="08.09.840.1.196389.10.20.22.4.3" /> <id nullFlavor="UNK" /> < code codeSystem="08.09.840.1.688885.5.6" code="CONC" displayName="Concern" /> <statusCode code="completed" /> <effectiveTime> <low value= "56892865" /> </effectiveTime> <entryRelationship typeCode="SUBJ"> <observation moodCode="EVN" classCode="OBS"> <templateId root= "08.09.840.1.150764.10.20.22.4.4" /> <id nullFlavor="UNK" /> < code codeSystem="08.09.840.1.073726.6.96" code="474997582" displayName="Diagnosis " /> <statusCode code="completed" /> <value codeSystem="" xsi: type="CD" code="R10.32" displayName="Left lower quadrant pain" /> </ observation> </entryRelationship> </act> </entry> <entry typeCode= "DRIV"> <act moodCode="EVN" classCode="ACT"> <templateId root= "840.1.742494.10..4.3" /> <id nullFlavor="UNK" /> <code codeSystem="840.1.519379.5.6" code="CONC" displayName="Concern" /> < statusCode code="completed" /> <effectiveTime> <low value="20180115 " /> </effectiveTime> <entryRelationship typeCode="SUBJ"> < observation moodCode="EVN" classCode="OBS"> <templateId root= "840.1.561723.04.12.22.4.4" /> <id nullFlavor="UNK" /> < code codeSystem="840.1.043015.6.96" code="713575697" displayName="Diagnosis " /> <statusCode code="completed" /> <value codeSystem="" xsi: type="CD" code="I10" displayName="Essential (primary) hypertension" /> </ observation> </entryRelationship> </act> </entry> <entry typeCode= "DRIV"> <act moodCode="EVN" classCode="ACT"> <templateId root= "840.1.884336.10..4.3" /> <id nullFlavor="UNK" /> <code codeSystem="840.1.803934.5.6" code="CONC" displayName="Concern" /> < statusCode code="completed" /> <effectiveTime> <low value="20180115 " /> </effectiveTime> <entryRelationship typeCode="SUBJ"> < observation moodCode="EVN" classCode="OBS"> <templateId root= "840.1.947949.04.12.22.4.4" /> <id nullFlavor="UNK" /> < code codeSystem="216.840.1.498231.6.96" code="237052180" displayName="Diagnosis " /> <statusCode code="completed" /> <value codeSystem="" xsi: type="CD" code="J44.9" displayName="Chronic obstructive pulmonary disease, unspecified" /> </observation> </entryRelationship> </act> </ entry> <entry typeCode="DRIV"> <act moodCode="EVN" classCode="ACT"> < templateId root="216.840.1.104208.04.12.22.4.3" /> <id nullFlavor="UNK" / > <code codeSystem="216.840.1.797110.5.6" code="CONC" displayName="Concern " /> <statusCode code="completed" /> <effectiveTime> <low value ="60311593" /> </effectiveTime> <entryRelationship typeCode="SUBJ"> <observation moodCode="EVN" classCode="OBS"> <templateId root= "16.840.1.773939.04.12.22.4.4" /> <id nullFlavor="UNK" /> < code codeSystem="216.840.1.567996.6.96" code="477172426" displayName="Diagnosis " /> <statusCode code="completed" /> <value codeSystem="" xsi: type="CD" code="K21.9" displayName="Gastro-esophageal reflux disease without esophagitis" /> </observation> </entryRelationship> </act> </ entry> <entry typeCode="DRIV"> <act moodCode="EVN" classCode="ACT"> < templateId root="216.840.1.813646.04.12.22.4.3" /> <id nullFlavor="UNK" / > <code codeSystem="08.09.840.1.761240.5.6" code="CONC" displayName="Concern " /> <statusCode code="completed" /> <effectiveTime> <low value ="40771965" /> </effectiveTime> <entryRelationship typeCode="SUBJ"> <observation moodCode="EVN" classCode="OBS"> <templateId root= "840.1.394360.04.12.224.4" /> <id nullFlavor="UNK" /> < code codeSystem="08.09.840.1.502218.6.96" code="987275737" displayName="Diagnosis " /> <statusCode code="completed" /> <value codeSystem="" xsi: type="CD" code="R10.32" displayName="Left lower quadrant pain" /> </ observation> </entryRelationship> </act> </entry> <entry typeCode= "DRIV"> <act moodCode="EVN" classCode="ACT"> <templateId root= "08.09.840.1.901400.04.12.224.3" /> <id nullFlavor="UNK" /> <code codeSystem="08.09.840.1.912559.5.6" code="CONC" displayName="Concern" /> < statusCode code="completed" /> <effectiveTime> <low value="20180128 " /> </effectiveTime> <entryRelationship typeCode="SUBJ"> < observation moodCode="EVN" classCode="OBS"> <templateId root= "08.09.840.1.197605.04.12.224.4" /> <id nullFlavor="UNK" /> < code codeSystem="08.09.840.1.556078.6.96" code="842284628" displayName="Diagnosis " /> <statusCode code="completed" /> <value codeSystem="" xsi: type="CD" code="I10" displayName="Essential (primary) hypertension" /> </ observation> </entryRelationship> </act> </entry></section> < section> <templateId root="2.16.840.1.835712.10.20.22.2.7" /> <templateId root ="2.16.840.1.641243.10.20.22.2.7.1" /> <code codeSystemName="LOINC" codeSystem= "2.16.840.1.355199.6.1" code="59868-8" displayName="History of Procedures" /> < title>Procedures</title> <text> <table> <thead> <tr> < th>Code</th> <th>Description</th> <th>Performed By</th> <th>Performed On</th> </tr> </thead> <tbody> <tr> <td> <content ID="proc_code_5138">45226</content> </ td> <td> <content ID="proc_desc5138">ROUTINE VENIPUNCTURE</ content> </td> <td>JACOB LANDRUM DO</td> <td>02/2011</td> </tr> <tr> <td> <content ID="proc _code_5140">86387</content> </td> <td> <content ID= "proc_desc5140">COMPREHEN METABOLIC PANEL</content> </td> <td> JACOB LANDRUM DO</td> <td>05/02/2011</td> </tr> <tr> <td> <content ID="proc_code_5143">05128</content> </td> <td> <content ID="proc_desc5143">URINALYSIS, AUTO W/ SCOPE</content> </td> <td>JACOB LANDRUM DO</td> < td>05/02/2011</td> </tr> <tr> <td> <content ID ="proc_code_5142">76914</content> </td> <td> < content ID="proc_desc5142">GLYCOSYLATED HEMOGLOBIN TEST</content> </td > <td>JACOB LANDRUM DO</td> <td>05/02/2011</td> </ tr> <tr> <td> <content ID="proc_code_5141">54763</ content> </td> <td> <content ID="proc_desc5141"> ASSAY THYROID STIM HORMONE</content> </td> <td>JACOB LANDRUM DO</td> <td>05/02/2011</td> </tr> <tr> < td> <content ID="proc_code_5139">61408</content> </td> <td> <content ID="proc_desc5139">COMPLETE CBC W/AUTO DIFF WBC</ content> </td> <td>JACOB LANDRUM DO</td> <td>02/2011</td> </tr> <tr> <td> <content ID="proc _code_5130">77711</content> </td> <td> <content ID= "proc_desc5130">ROUTINE VENIPUNCTURE</content> </td> <td> ARNOLDO WINSTON MD</td> <td>07/26/2011</td> </tr> <tr> <td> <content ID="proc_code_5131">06618</content> </td> <td> <content ID="proc_desc5131">CHEST X-RAY</ content> </td> <td>ARNOLDO WINSTON MD</td> < td>07/26/2011</td> </tr> <tr> <td> <content ID ="proc_code_5129">18262</content> </td> <td> < content ID="proc_desc5129">COMPREHEN METABOLIC PANEL</content> </td> <td>ARNOLDO WINSTON MD</td> <td>07/26/2011</td> </tr> <tr> <td> <content ID="proc_code_5128">82596</ content> </td> <td> <content ID="proc_desc5128"> COMPLETE CBC W/AUTO DIFF WBC</content> </td> <td>ARNOLDO WINSTON MD</td> <td>07/26/2011</td> </tr> <tr> <td> <content ID="proc_code_5135">47365</content> </td> <td> <content ID="proc_desc5135">ELECTROCARDIOGRAM, TRACING< /content> </td> <td>ARNOLDO WINSTON MD</td> < td>07/26/2011</td> </tr> <tr> <td> <content ID ="proc_code_5132">36349</content> </td> <td> < content ID="proc_desc5132">THER/PROPH/DIAG INJ, SC/IM</content> </td> <td>ARNOLDO WINSTON MD</td> <td>07/26/2011</td> </tr> <tr> <td> <content ID="proc_code_5133">02397< /content> </td> <td> <content ID="proc_desc5133"> EMERGENCY DEPT VISIT</content> </td> <td>ARNOLDO WINSTON MD</td> <td>07/26/2011</td> </tr> <tr> <td> <content ID="proc_code_5134">J1885</content> </td> <td> <content ID="proc_desc5134">KETOROLAC TROMETHAMINE INJ< /content> </td> <td>ARNOLDO WINSTON MD</td> < td>07/26/2011</td> </tr> <tr> <td> <content ID ="proc_code_5112">08454</content> </td> <td> < content ID="proc_desc5112">ROUTINE VENIPUNCTURE</content> </td> <td>JACOB LANDRUM DO</td> <td>08/07/2011</td> </tr> <tr> <td> <content ID="proc_code_5113">86558</content> </td> <td> <content ID="proc_desc5113">CHEST X-RAY</ content> </td> <td>JACOB LANDRUM DO</td> <td></td> </tr> <tr> <td> <content ID="proc _code_5111">34418</content> </td> <td> <content ID= "proc_desc5111">COMPREHEN METABOLIC PANEL</content> </td> <td> LUCITAJACOB Cee DO</td> <td>08/07/2011</td> </tr> <tr> <td> <content ID="proc_code_5110">02423</content> </td> <td> <content ID="proc_desc5110">COMPLETE CBC W/AUTO DIFF WBC</content> </td> <td>LUCITAJACOB Cee DO</td> <td>08/07/2011</td> </tr> <tr> <td> < content ID="proc_code_5120">13759</content> </td> <td> <content ID="proc_desc5120">THER/PROPH/DIAG IV INF, INIT</content> </td> <td>LUCITAJACOB Cee DO</td> <td>08/07/2011</td> </tr> <tr> <td> <content ID="proc_code_5121"> 92828</content> </td> <td> <content ID="proc_ onln2608">THER/PROPH/DIAG IV INF ADDON</content> </td> <td> LUCITA DO, JACOB Albarran</td> <td>08/07/2011</td> </tr> <tr> <td> <content ID="proc_code_5126">64454</content> </td> <td> <content ID="proc_desc5126">THER/PROPH/DIAG INJ, SC/IM</content> </td> <td>LUCITA DO, JACOB Albarran</td> < td>08/07/2011</td> </tr> <tr> <td> <content ID ="proc_code_5123">30100</content> </td> <td> < content ID="proc_desc5123">TX/PRO/DX INJ NEW [...] Deion</td> <td>08/07/2011</td> </tr> <tr> <td> <content ID="proc_code_5122"> 13349</content> </td> <td> <content ID="proc_ sfuy7744">THER/PROPH/DIAG IV INF ADDON</content> </td> <td> LUCITA DO, JACOB Deion</td> <td>08/08/2011</td> </tr> <tr> <td> <content ID="proc_code_5124">33798</content> </td> <td> <content ID="proc_desc5124">TX/PRO/DX INJ NEW DRUG ADDON</content> </td> <td>LUCITA DO, JACOB Deion</td> <td>08/08/2011</td> </tr> <tr> <td> < content ID="proc_code_5125">74571</content> </td> <td> <content ID="proc_desc5125">TX/PRO/DX INJ NEW DRUG DIRECTOR OF [employer]</content> </td> <td>LUCITA DOJACOB</td> <td>08/08/2011</td> </tr> <tr> <td> <content ID="proc_code_5119">J1200< /content> </td> <td> <content ID="proc_desc5119"> BENADRYL 50</content> </td> <td>LUCITA DO JACOB Deion</td> <td>08/08/2011</td> </tr> <tr> <td> < content ID="proc_code_5117">J1956</content> </td> <td> <content ID="proc_desc5117">LEVAQUIN IV 500MG</content> </td> <td>LUCITA DOJACOB W</td> <td>08/08/2011</td> </tr> <tr> <td> <content ID="proc_code_5118">J2930</content > </td> <td> <content ID="proc_desc5118"> METHYLPREDNISOLONE INJECTION</content> </td> <td>JACOB LANDRUM DO W</td> <td>08/08/2011</td> </tr> <tr> < td> <content ID="proc_code_5108">35376</content> </td> <td> <content ID="proc_desc5108">URINALYSIS, AUTO W/SCOPE</ content> </td> <td>ADITI GUILLEN</td> <td>2011</td> </tr> <tr> <td> <content ID="proc_ code_5109">53895</content> </td> <td> <content ID= "proc_desc5109">EMERGENCY DEPT VISIT</content> </td> <td> ADITI GUILLEN</td> <td>09/25/2011</td> </tr> <tr> <td> <content ID="proc_code_5107">A9270</content> </ td> <td> <content ID="proc_desc5107">Non-covered item or service</content> </td> <td>ADITI GUILLEN</td> < td>09/25/2011</td> </tr> <tr> <td> <content ID ="proc_code_5102">34740</content> </td> <td> < content ID="proc_desc5102">ROUTINE VENIPUNCTURE</content> </td> <td>KEVYN BALDWIN MD</td> <td>10/04/2011</td> </tr> <tr> <td> <content ID="proc_code_5104">72848</content> </td> <td> <content ID="proc_desc5104">CHEST X-RAY</ content> </td> <td>KEVYN BALDWIN MD</td> <td>2011</td> </tr> <tr> <td> <content ID="proc_ code_5098">05735</content> </td> <td> <content ID= "proc_desc5098">COMPREHEN METABOLIC PANEL</content> </td> <td> KEVYN BALDWIN MD</td> <td>10/04/2011</td> </tr> <tr> <td> <content ID="proc_code_5096">10841</content> </ td> <td> <content ID="proc_desc5096">ASSAY OF CK (CPK)</ content> </td> <td>KEVYN BALDWIN MD</td> <td>2011</td> </tr> <tr> <td> <content ID="proc_ code_5095">87928</content> </td> <td> <content ID= "proc_desc5095">CREATINE, MB FRACTION</content> </td> <td> KEVYN BALDWIN MD</td> <td>10/04/2011</td> </tr> <tr> <td> <content ID="proc_code_5097">17728</content> </ td> <td> <content ID="proc_desc5097">ASSAY OF TROPONIN, QUANT</content> </td> <td>KEVYN BALDWIN MD</td> <td >10/04/2011</td> </tr> <tr> <td> <content ID= "proc_code_5101">00323</content> </td> <td> < content ID="proc_desc5101">COMPLETE CBC W/AUTO DIFF WBC</content> </td > <td>KEVYN BALDWIN MD</td> <td>10/04/2011</td> </tr > <tr> <td> <content ID="proc_code_5099">74168</ content> </td> <td> <content ID="proc_desc5099"> PROTHROMBIN TIME</content> </td> <td>KEVYN BALDWIN MD</td> <td>10/04/2011</td> </tr> <tr> <td> < content ID="proc_code_5100">20460</content> </td> <td> <content ID="proc_desc5100">THROMBOPLASTIN TIME, PARTIAL</content> </td> <td>KEVYN BALDWIN MD</td> <td>10/04/2011</td> </tr> <tr> <td> <content ID="proc_code_5103">91936< /content> </td> <td> <content ID="proc_desc5103"> HELICOBACTER PYLORI</content> </td> <td>KEVYN BALDWIN MD</td > <td>10/04/2011</td> </tr> <tr> <td> <content ID="proc_code_5106">30546</content> </td> <td> <content ID="proc_desc5106">ELECTROCARDIOGRAM, TRACING</content> </td> <td>KEVYN BALDWIN MD</td> <td>10/04/2011</td> </tr> <tr> <td> <content ID="proc_code_5105">95288 </content> </td> <td> <content ID="proc_desc5105"> EMERGENCY DEPT VISIT</content> </td> <td>KEVYN BALDWIN MD</ td> <td>10/04/2011</td> </tr> <tr> <td> <content ID="proc_code_5094">A9270</content> </td> <td> <content ID="proc_desc5094">Non-covered item or service</content> </td> <td>KEVYN BALDWIN MD</td> <td>10/04/2011</td> </tr> <tr> <td> <content ID="proc_code_17652"> 73507</content> </td> <td> <content ID="proc_ bwms15101">Est PatientEye Exam Comprehensive</content> </td> <td>Ramu Jorgensen W</td> <td>09/17/2017</td> </tr> < tr> <td> <content ID="proc_code_17653">39772</content> </td> <td> <content ID="proc_desc17653">Services Refraction</content> </td> <td>Ramu Jorgensen</td> <td>09/17/2017</td> </tr> <tr> <td> < content ID="proc_code_536241">84285</content> </td> <td> <content ID="proc_desc536241">Polysomnography;sleep Staging W 4ey</ content> </td> <td>Kwadwo Jones Enrico</td> <td>2017</td> </tr> </tbody> </table> </text> <entry> < procedure moodCode="EVN" classCode="PROC"> <templateId root= "[id number]" /> <id nullFlavor="NA" /> <code codeSystem="C4" code="83077" displayName="ROUTINE VENIPUNCTURE"> < originalText> <reference value="#proc_code_5138" /> </ originalText> </code> <text> <reference value="#proc_desc5138" /> </text> <statusCode code="completed" /> <effectiveTime value= "[id number]" /> </procedure> </entry> <entry> <procedure moodCode="EVN" classCode="PROC"> <templateId root="2.16.840.1.526745.22.4.14" /> <id nullFlavor="NA" /> <code codeSystem="C4" code="74539" displayName= "COMPREHEN METABOLIC PANEL"> <originalText> <reference value="# proc_code_5140" /> </originalText> </code> <text> < reference value="#proc_desc5140" /> </text> <statusCode code= "completed" /> <effectiveTime value="20110502" /> </procedure> </entry > <entry> <procedure moodCode="EVN" classCode="PROC"> <templateId root= "08.09.840.1.643448.04.12.224.14" /> <id nullFlavor="NA" /> <code codeSystem="C4" code="35663" displayName="URINALYSIS, AUTO W/SCOPE"> < originalText> <reference value="#proc_code_5143" /> </ originalText> </code> <text> <reference value="#proc_desc5143" /> </text> <statusCode code="completed" /> <effectiveTime value= "20110502" /> </procedure> </entry> <entry> <procedure moodCode="EVN" classCode="PROC"> <templateId root="16.840.1.224278.04.12.224.14" /> <id nullFlavor="NA" /> <code codeSystem="C4" code="18043" displayName= "GLYCOSYLATED HEMOGLOBIN TEST"> <originalText> <reference value= "#proc_code_5142" /> </originalText> </code> <text> < reference value="#proc_desc5142" /> </text> <statusCode code= "completed" /> <effectiveTime value="20110502" /> </procedure> </entry > <entry> <procedure moodCode="EVN" classCode="PROC"> <templateId root= "08.09.840.1.316462.04.12.224.14" /> <id nullFlavor="NA" /> <code codeSystem="C4" code="19696" displayName="ASSAY THYROID STIM HORMONE"> < originalText> <reference value="#proc_code_5141" /> </ originalText> </code> <text> <reference value="#proc_desc5141" /> </text> <statusCode code="completed" /> <effectiveTime value= "20110502" /> </procedure> </entry> <entry> <procedure moodCode="EVN" classCode="PROC"> <templateId root="840.1.142613.04.12.224.14" /> <id nullFlavor="NA" /> <code codeSystem="C4" code="25077" displayName= "COMPLETE CBC W/AUTO DIFF WBC"> <originalText> <reference value= "#proc_code_5139" /> </originalText> </code> <text> < reference value="#proc_desc5139" /> </text> <statusCode code= "completed" /> <effectiveTime value="20110502" /> </procedure> </entry > <entry> <procedure moodCode="EVN" classCode="PROC"> <templateId root= "08.09.840.1.804462.04.12.224.14" /> <id nullFlavor="NA" /> <code codeSystem="C4" code="81555" displayName="ROUTINE VENIPUNCTURE"> < originalText> <reference value="#proc_code_5130" /> </ originalText> </code> <text> <reference value="#proc_desc5130" /> </text> <statusCode code="completed" /> <effectiveTime value= "20110726" /> </procedure> </entry> <entry> <procedure moodCode="EVN" classCode="PROC"> <templateId root="840.1.698633.104.14" /> <id nullFlavor="NA" /> <code codeSystem="C4" code="86306" displayName= "CHEST X-RAY"> <originalText> <reference value="#proc_code_5131 " /> </originalText> </code> <text> <reference value="# proc_desc5131" /> </text> <statusCode code="completed" /> < effectiveTime value="20110726" /> </procedure> </entry> <entry> < procedure moodCode="EVN" classCode="PROC"> <templateId root= "840.1.656780.104.14" /> <id nullFlavor="NA" /> <code codeSystem="C4" code="01364" displayName="COMPREHEN METABOLIC PANEL"> < originalText> <reference value="#proc_code_5129" /> </ originalText> </code> <text> <reference value="#proc_desc5129" /> </text> <statusCode code="completed" /> <effectiveTime value= "20110726" /> </procedure> </entry> <entry> <procedure moodCode="EVN" classCode="PROC"> <templateId root="840.1.579887.10.4.14" /> <id nullFlavor="NA" /> <code codeSystem="C4" code="51872" displayName= "COMPLETE CBC W/AUTO DIFF WBC"> <originalText> <reference value= "#proc_code_5128" /> </originalText> </code> <text> < reference value="#proc_desc5128" /> </text> <statusCode code= "completed" /> <effectiveTime value="74255501" /> </procedure> </entry > <entry> <procedure moodCode="EVN" classCode="PROC"> <templateId root= "840.1.032305.04.12.224.14" /> <id nullFlavor="NA" /> <code codeSystem="C4" code="87422" displayName="ELECTROCARDIOGRAM, TRACING"> < originalText> <reference value="#proc_code_5135" /> </ originalText> </code> <text> <reference value="#proc_desc5135" /> </text> <statusCode code="completed" /> <effectiveTime value= "20110726" /> </procedure> </entry> <entry> <procedure moodCode="EVN" classCode="PROC"> <templateId root="840.1.205289.04.12.224.14" /> <id nullFlavor="NA" /> <code codeSystem="C4" code="91913" displayName= "THER/PROPH/DIAG INJ, SC/IM"> <originalText> <reference value="# proc_code_5132" /> </originalText> </code> <text> < reference value="#proc_desc5132" /> </text> <statusCode code= "completed" /> <effectiveTime value="20110726" /> </procedure> </entry > <entry> <procedure moodCode="EVN" classCode="PROC"> <templateId root= "08.09.840.1.656820.10.224.14" /> <id nullFlavor="NA" /> <code codeSystem="C4" code="40892" displayName="EMERGENCY DEPT VISIT"> < originalText> <reference value="#proc_code_5133" /> </ originalText> </code> <text> <reference value="#proc_desc5133" /> </text> <statusCode code="completed" /> <effectiveTime value= "20110726" /> </procedure> </entry> <entry> <procedure moodCode="EVN" classCode="PROC"> <templateId root="08.09.840.1.932324.04.12.224.14" /> <id nullFlavor="NA" /> <code codeSystem="C4" code="J1885" displayName= "KETOROLAC TROMETHAMINE INJ"> <originalText> <reference value="# proc_code_5134" /> </originalText> </code> <text> < reference value="#proc_desc5134" /> </text> <statusCode code= "completed" /> <effectiveTime value="20110726" /> </procedure> </entry > <entry> <procedure moodCode="EVN" classCode="PROC"> <templateId root= "08.09.840.1.100221.1022.4.14" /> <id nullFlavor="NA" /> <code codeSystem="C4" code="08406" displayName="ROUTINE VENIPUNCTURE"> < originalText> <reference value="#proc_code_5112" /> </ originalText> </code> <text> <reference value="#proc_desc5112" /> </text> <statusCode code="completed" /> <effectiveTime value= "20110807" /> </procedure> </entry> <entry> <procedure moodCode="EVN" classCode="PROC"> <templateId root="08.09.840.1.044196.10.224.14" /> <id nullFlavor="NA" /> <code codeSystem="C4" code="15083" displayName= "CHEST X-RAY"> <originalText> <reference value="#proc_code_5113 " /> </originalText> </code> <text> <reference value="# proc_desc5113" /> </text> <statusCode code="completed" /> < effectiveTime value="20110807" /> </procedure> </entry> <entry> < procedure moodCode="EVN" classCode="PROC"> <templateId root= "840.1.426063.224.14" /> <id nullFlavor="NA" /> <code codeSystem="C4" code="87379" displayName="COMPREHEN METABOLIC PANEL"> < originalText> <reference value="#proc_code_5111" /> </ originalText> </code> <text> <reference value="#proc_desc5111" /> </text> <statusCode code="completed" /> <effectiveTime value= "20110807" /> </procedure> </entry> <entry> <procedure moodCode="EVN" classCode="PROC"> <templateId root="840.1.803919.22.4.14" /> <id nullFlavor="NA" /> <code codeSystem="C4" code="53809" displayName= "COMPLETE CBC W/AUTO DIFF WBC"> <originalText> <reference value= "#proc_code_5110" /> </originalText> </code> <text> < reference value="#proc_desc5110" /> </text> <statusCode code= "completed" /> <effectiveTime value="20110807" /> </procedure> </entry > <entry> <procedure moodCode="EVN" classCode="PROC"> <templateId root= "840.1.014561.224.14" /> <id nullFlavor="NA" /> <code codeSystem="C4" code="57039" displayName="THER/PROPH/DIAG IV INF, INIT"> <originalText> <reference value="#proc_code_5120" /> </ originalText> </code> <text> <reference value="#proc_desc5120" /> </text> <statusCode code="completed" /> <effectiveTime value= "20110807" /> </procedure> </entry> <entry> <procedure moodCode="EVN" classCode="PROC"> <templateId root="840.1.393148.04.12.224.14" /> <id nullFlavor="NA" /> <code codeSystem="C4" code="42562" displayName= "THER/PROPH/DIAG IV INF ADDON"> <originalText> <reference value= "#proc_code_5121" /> </originalText> </code> <text> < reference value="#proc_desc5121" /> </text> <statusCode code= "completed" /> <effectiveTime value="20110807" /> </procedure> </entry > <entry> <procedure moodCode="EVN" classCode="PROC"> <templateId root= "840.1.616918.04.12.224.14" /> <id nullFlavor="NA" /> <code codeSystem="C4" code="72131" displayName="THER/PROPH/DIAG INJ, SC/IM"> < originalText> <reference value="#proc_code_5126" /> </ originalText> </code> <text> <reference value="#proc_desc5126" /> </text> <statusCode code="completed" /> <effectiveTime value= "20110807" /> </procedure> </entry> <entry> <procedure moodCode="EVN" classCode="PROC"> <templateId root="840.1.596391.04.12.224.14" /> <id nullFlavor="NA" /> <code codeSystem="C4" code="06840" displayName= "TX/PRO/DX INJ NEW DRUG ADDON"> <originalText> <reference value= "#proc_code_5123" /> </originalText> </code> <text> < reference value="#proc_desc5123" /> </text> <statusCode code= "completed" /> <effectiveTime value="20110807" /> </procedure> </entry > <entry> <procedure moodCode="EVN" classCode="PROC"> <templateId root= "840.1.652053.04.12.22414" /> <id nullFlavor="NA" /> <code codeSystem="C4" code="G0378" displayName="HOSPITAL OBSERVATION PER HR"> < originalText> <reference value="#proc_code_5127" /> </ originalText> </code> <text> <reference value="#proc_desc5127" /> </text> <statusCode code="completed" /> <effectiveTime value= "20110807" /> </procedure> </entry> <entry> <procedure moodCode="EVN" classCode="PROC"> <templateId root="840.1.775812.04.12.2214" /> <id nullFlavor="NA" /> <code codeSystem="C4" code="J1200" displayName= "BENADRYL 50"> <originalText> <reference value="#proc_code_5116 " /> </originalText> </code> <text> <reference value="# proc_desc5116" /> </text> <statusCode code="completed" /> < effectiveTime value="20110807" /> </procedure> </entry> <entry> < procedure moodCode="EVN" classCode="PROC"> <templateId root= "840.1.984959.04.12.2214" /> <id nullFlavor="NA" /> <code codeSystem="C4" code="J1956" displayName="LEVAQUIN IV 500MG"> < originalText> <reference value="#proc_code_5114" /> </ originalText> </code> <text> <reference value="#proc_desc5114" /> </text> <statusCode code="completed" /> <effectiveTime value= "20110807" /> </procedure> </entry> <entry> <procedure moodCode="EVN" classCode="PROC"> <templateId root="840.1.947085.10..4.14" /> <id nullFlavor="NA" /> <code codeSystem="C4" code="J2930" displayName= "METHYLPREDNISOLONE INJECTION"> <originalText> <reference value= "#proc_code_5115" /> </originalText> </code> <text> < reference value="#proc_desc5115" /> </text> <statusCode code= "completed" /> <effectiveTime value="20110807" /> </procedure> </entry > <entry> <procedure moodCode="EVN" classCode="PROC"> <templateId root= "840.1.011784.04.12.22.4.14" /> <id nullFlavor="NA" /> <code codeSystem="C4" code="43201" displayName="THER/PROPH/DIAG IV INF ADDON"> <originalText> <reference value="#proc_code_5122" /> </ originalText> </code> <text> <reference value="#proc_desc5122" /> </text> <statusCode code="completed" /> <effectiveTime value= "20110808" /> </procedure> </entry> <entry> <procedure moodCode="EVN" classCode="PROC"> <templateId root="840.1.325009.10.14" /> <id nullFlavor="NA" /> <code codeSystem="C4" code="89541" displayName= "TX/PRO/DX INJ NEW DRUG ADDON"> <originalText> <reference value= "#proc_code_5124" /> </originalText> </code> <text> < reference value="#proc_desc5124" /> </text> <statusCode code= "completed" /> <effectiveTime value="20110808" /> </procedure> </entry > <entry> <procedure moodCode="EVN" classCode="PROC"> <templateId root= "216.840.1.129874.04.12.2214" /> <id nullFlavor="NA" /> <code codeSystem="C4" code="78283" displayName="TX/PRO/DX INJ NEW DRUG DIRECTOR OF [employer]"> < originalText> <reference value="#proc_code_5125" /> </ originalText> </code> <text> <reference value="#proc_desc5125" /> </text> <statusCode code="completed" /> <effectiveTime value= "20110808" /> </procedure> </entry> <entry> <procedure moodCode="EVN" classCode="PROC"> <templateId root="216.840.1.232375..14" /> <id nullFlavor="NA" /> <code codeSystem="C4" code="J1200" displayName= "BENADRYL 50"> <originalText> <reference value="#proc_code_5119 " /> </originalText> </code> <text> <reference value="# proc_desc5119" /> </text> <statusCode code="completed" /> < effectiveTime value="20110808" /> </procedure> </entry> <entry> < procedure moodCode="EVN" classCode="PROC"> <templateId root= "216.840.1.610498.1022.4.14" /> <id nullFlavor="NA" /> <code codeSystem="C4" code="J1956" displayName="LEVAQUIN IV 500MG"> < originalText> <reference value="#proc_code_5117" /> </ originalText> </code> <text> <reference value="#proc_desc5117" /> </text> <statusCode code="completed" /> <effectiveTime value= "20110808" /> </procedure> </entry> <entry> <procedure moodCode="EVN" classCode="PROC"> <templateId root="08.09.840.1.831947.04.12.224.14" /> <id nullFlavor="NA" /> <code codeSystem="C4" code="J2930" displayName= "METHYLPREDNISOLONE INJECTION"> <originalText> <reference value= "#proc_code_5118" /> </originalText> </code> <text> < reference value="#proc_desc5118" /> </text> <statusCode code= "completed" /> <effectiveTime value="20110808" /> </procedure> </entry > <entry> <procedure moodCode="EVN" classCode="PROC"> <templateId root= "16.840.1.171423.04.12.224.14" /> <id nullFlavor="NA" /> <code codeSystem="C4" code="92644" displayName="URINALYSIS, AUTO W/SCOPE"> < originalText> <reference value="#proc_code_5108" /> </ originalText> </code> <text> <reference value="#proc_desc5108" /> </text> <statusCode code="completed" /> <effectiveTime value= "20110925" /> </procedure> </entry> <entry> <procedure moodCode="EVN" classCode="PROC"> <templateId root="08.09.840.1.648375.104.14" /> <id nullFlavor="NA" /> <code codeSystem="C4" code="15333" displayName= "EMERGENCY DEPT VISIT"> <originalText> <reference value="#proc_ code_5109" /> </originalText> </code> <text> <reference value="#proc_desc5109" /> </text> <statusCode code="completed" /> <effectiveTime value="20110925" /> </procedure> </entry> <entry> < procedure moodCode="EVN" classCode="PROC"> <templateId root= "08.09.840.1.476476.04.12.224.14" /> <id nullFlavor="NA" /> <code codeSystem="C4" code="A9270" displayName="Non-covered item or service"> < originalText> <reference value="#proc_code_5107" /> </ originalText> </code> <text> <reference value="#proc_desc5107" /> </text> <statusCode code="completed" /> <effectiveTime value= "20110925" /> </procedure> </entry> <entry> <procedure moodCode="EVN" classCode="PROC"> <templateId root="08.09.840.1.713550.04.12.224.14" /> <id nullFlavor="NA" /> <code codeSystem="C4" code="21579" displayName= "ROUTINE VENIPUNCTURE"> <originalText> <reference value="#proc_ code_5102" /> </originalText> </code> <text> <reference value="#proc_desc5102" /> </text> <statusCode code="completed" /> <effectiveTime value="96116767" /> </procedure> </entry> <entry> < procedure moodCode="EVN" classCode="PROC"> <templateId root= "840.1.210104.04.12.22.4.14" /> <id nullFlavor="NA" /> <code codeSystem="C4" code="65969" displayName="CHEST X-RAY"> <originalText> <reference value="#proc_code_5104" /> </originalText> </code > <text> <reference value="#proc_desc5104" /> </text> < statusCode code="completed" /> <effectiveTime value="20111004" /> </ procedure> </entry> <entry> <procedure moodCode="EVN" classCode="PROC"> <templateId root="840.1.222256.1022.4.14" /> <id nullFlavor="NA " /> <code codeSystem="C4" code="37880" displayName="COMPREHEN METABOLIC PANEL"> <originalText> <reference value="#proc_code_5098" /> </originalText> </code> <text> <reference value="#proc_ fovw0688" /> </text> <statusCode code="completed" /> < effectiveTime value="20111004" /> </procedure> </entry> <entry> < procedure moodCode="EVN" classCode="PROC"> <templateId root= "840.1.922641.102022.4.14" /> <id nullFlavor="NA" /> <code codeSystem="C4" code="98548" displayName="ASSAY OF CK (CPK)"> < originalText> <reference value="#proc_code_5096" /> </ originalText> </code> <text> <reference value="#proc_desc5096" /> </text> <statusCode code="completed" /> <effectiveTime value= "20111004" /> </procedure> </entry> <entry> <procedure moodCode="EVN" classCode="PROC"> <templateId root="840.1.836431.04.12.224.14" /> <id nullFlavor="NA" /> <code codeSystem="C4" code="87481" displayName= "CREATINE, MB FRACTION"> <originalText> <reference value="#proc_ code_5095" /> </originalText> </code> <text> <reference value="#proc_desc5095" /> </text> <statusCode code="completed" /> <effectiveTime value="20111004" /> </procedure> </entry> <entry> < procedure moodCode="EVN" classCode="PROC"> <templateId root= "840.1.348179.224.14" /> <id nullFlavor="NA" /> <code codeSystem="C4" code="76283" displayName="ASSAY OF TROPONIN, QUANT"> < originalText> <reference value="#proc_code_5097" /> </ originalText> </code> <text> <reference value="#proc_desc5097" /> </text> <statusCode code="completed" /> <effectiveTime value= "20111004" /> </procedure> </entry> <entry> <procedure moodCode="EVN" classCode="PROC"> <templateId root="840.1.773783.10224.14" /> <id nullFlavor="NA" /> <code codeSystem="C4" code="44537" displayName= "COMPLETE CBC W/AUTO DIFF WBC"> <originalText> <reference value= "#proc_code_5101" /> </originalText> </code> <text> < reference value="#proc_desc5101" /> </text> <statusCode code= "completed" /> <effectiveTime value="20111004" /> </procedure> </entry > <entry> <procedure moodCode="EVN" classCode="PROC"> <templateId root= "840.1.667169.10.224.14" /> <id nullFlavor="NA" /> <code codeSystem="C4" code="80100" displayName="PROTHROMBIN TIME"> < originalText> <reference value="#proc_code_5099" /> </ originalText> </code> <text> <reference value="#proc_desc5099" /> </text> <statusCode code="completed" /> <effectiveTime value= "20111004" /> </procedure> </entry> <entry> <procedure moodCode="EVN" classCode="PROC"> <templateId root="840.1.311970.1022.4.14" /> <id nullFlavor="NA" /> <code codeSystem="C4" code="71134" displayName= "THROMBOPLASTIN TIME, PARTIAL"> <originalText> <reference value= "#proc_code_5100" /> </originalText> </code> <text> < reference value="#proc_desc5100" /> </text> <statusCode code= "completed" /> <effectiveTime value="20111004" /> </procedure> </entry > <entry> <procedure moodCode="EVN" classCode="PROC"> <templateId root= "840.1.389136.10.22.4.14" /> <id nullFlavor="NA" /> <code codeSystem="C4" code="25482" displayName="HELICOBACTER PYLORI"> < originalText> <reference value="#proc_code_5103" /> </ originalText> </code> <text> <reference value="#proc_desc5103" /> </text> <statusCode code="completed" /> <effectiveTime value= "20111004" /> </procedure> </entry> <entry> <procedure moodCode="EVN" classCode="PROC"> <templateId root="08.09.840.1.291589.104.14" /> <id nullFlavor="NA" /> <code codeSystem="C4" code="35051" displayName= "ELECTROCARDIOGRAM, TRACING"> <originalText> <reference value="# proc_code_5106" /> </originalText> </code> <text> < reference value="#proc_desc5106" /> </text> <statusCode code= "completed" /> <effectiveTime value="20111004" /> </procedure> </entry > <entry> <procedure moodCode="EVN" classCode="PROC"> <templateId root= "840.1.880797.104.14" /> <id nullFlavor="NA" /> <code codeSystem="C4" code="44676" displayName="EMERGENCY DEPT VISIT"> < originalText> <reference value="#proc_code_5105" /> </ originalText> </code> <text> <reference value="#proc_desc5105" /> </text> <statusCode code="completed" /> <effectiveTime value= "20111004" /> </procedure> </entry> <entry> <procedure moodCode="EVN" classCode="PROC"> <templateId root="840.1.678708.04.12.224.14" /> <id nullFlavor="NA" /> <code codeSystem="C4" code="A9270" displayName= "Non-covered item or service"> <originalText> <reference value= "#proc_code_5094" /> </originalText> </code> <text> < reference value="#proc_desc5094" /> </text> <statusCode code= "completed" /> <effectiveTime value="20111004" /> </procedure> </entry > <entry> <procedure moodCode="EVN" classCode="PROC"> <templateId root= "08.09.840.1.760952.10.4.14" /> <id nullFlavor="NA" /> <code codeSystem="C4" code="67759" displayName="Est PatientEye Exam Comprehensive" > <originalText> <reference value="#proc_code_17652" /> < /originalText> </code> <text> <reference value="#proc_desc17652 " /> </text> <statusCode code="completed" /> <effectiveTime value ="20170917" /> </procedure> </entry> <entry> <procedure moodCode="EVN" classCode="PROC"> <templateId root="08.09.840.1.214834.10.4.14" /> <id nullFlavor="NA" /> <code codeSystem="C4" code="20982" displayName= "ServicesRefraction"> <originalText> <reference value="#proc_ code_17653" /> </originalText> </code> <text> < reference value="#proc_desc17653" /> </text> <statusCode code= "completed" /> <effectiveTime value="20170917" /> </procedure> </entry > <entry> <procedure moodCode="EVN" classCode="PROC"> <templateId root= "08.09.840.1.496361.104.14" /> <id nullFlavor="NA" /> <code codeSystem="CPT" code="14192" displayName="Polysomnography;sleep Staging W 4ey" > <originalText> <reference value="#proc_code_536241" /> </originalText> </code> <text> <reference value="#proc_ sgry210415" /> </text> <statusCode code="completed" /> < effectiveTime value="71509452" /> </procedure> </entry></section> Results Test Result Range [...] GLUCOSE NEGATIVE Bilirubin NEGATIVE Ketones NEGATIVE Sp [place] >=1.030 Ph 6.0 Protein NEGATIVE Urobilinogen 0.2 [...] GLUCOSE NEGATIVE Bilirubin NEGATIVE Ketones NEGATIVE Sp [place] 1.020 Ph 5.5 Protein NEGATIVE Urobilinogen 0.2 [...] GLUCOSE NEGATIVE Bilirubin NEGATIVE Ketones NEGATIVE Sp [place] >=1.030 Ph 6.0 Protein NEGATIVE Urobilinogen 0.2 Nitrite NEGATIVE Blood NEGATIVE Leukocytes NEGATIVE Microscopic Not Indicat URINALYSIS - 08/20/16 10:24 URINALYSIS LAB Color YELLOW Character CLOUDY GLUCOSE NEGATIVE Bilirubin NEGATIVE Ketones NEGATIVE Sp [place] 1.025 Ph 6.0 Protein NEGATIVE Urobilinogen 0.2 [...] GLUCOSE NEGATIVE Bilirubin NEGATIVE Ketones NEGATIVE Sp [place] <=1.005 Ph 6.0 Protein NEGATIVE Urobilinogen 0.2 [...] GLUCOSE NEGATIVE Bilirubin NEGATIVE Ketones NEGATIVE Sp [place] >=1.030 Ph 6.0 Protein 1+ Urobilinogen 0.2 Nitrite NEGATIVE Blood 1+ Leukocytes 2+ Microscopic See Below Urine Volume 12 ml Specimen Type SPUN Bacteria 1+ (10-50) WBC/ 10-25 RBC/ 5-10 Squa Epi Cell 0-2 Culture To Follow URINALYSIS - 03/07/17 10:35 URINALYSIS NRG Color YELLOW NRG Character CLEAR NRG Glucose NEGATIVE NRG Bilirubin NEGATIVE NRG Ketones NEGATIVE NRG Sp [place] >=1.030 NRG Ph 6.0 NRG Protein 1+ [...] INDICATED NRG * Chem-14 - 03/26/17 15:13 [id number] NRG ALK PHOS 59 IU/L 32 - [...] 07/07/17 14:18 INFLUENZA A & B PCR, [facility] INFLUENZA A POSITIVE NORMAL: [...] GLUCOSE NEGATIVE Bilirubin NEGATIVE Ketones NEGATIVE Sp [place] 1.008 Ph 6.0 Protein NEGATIVE Urobilinogen NEGATIVE [...] GLUCOSE NEGATIVE Bilirubin NEGATIVE Ketones NEGATIVE Sp [place] 1.011 Ph 5.0 Protein NEGATIVE Urobilinogen NEGATIVE [...] GLUCOSE NEGATIVE Bilirubin NEGATIVE Ketones NEGATIVE [place] 1.016 Ph 6.0 Protein NEGATIVE Urobilinogen NEGATIVE [...] Status Pt. Type Provider Facility Loc./Unit Complaint [id number] 08/05/2013 10:11:00 08/05/2013 23[facility]59:[id number] 10/04/2011 18:56:00 10/04/2011 23:59:59 CLS Emergency JACOB LANDRUM DO [id number] 09/25/2011 21:27:00 09/25/2011 23:59:59 CLS Emergency MINDY ROSARIO, ADITI Albarran [id number] 08/07/2011 15:10:00 08/07/2011 23:59:59 CLS Outpatient JACOB LANDRUM DO [id number] 07/26/2011 20:30:00 07/26/2011 23:59:59 CLS Emergency ARNOLDO WINSTON MD [id number] 05/02/2011 10:52:00 05/02/2011 23:59:59 CLS Outpatient JACOB LANDRUM DO [id number] 12/12/2004 00:00:00 12/12/2004 23:59:59 CLS Outpatient [facility]FFREY [facility] 12/13/2017 16:14:12 ACT Document Registration [id number] 01/15/2018 15:42:00 01/15/2018 17:58:00 DIS Emergency NORBERTO HUDSON [id number] 01/14/2018 20:20:00 01/14/2018 21:33:00 DIS Emergency SATHISH ARENAS [id number] 01/10/2018 10:55:00 01/10/2018 23:59:59 CLS Outpatient CISCO PRADO [id number] 12/29/2017 22:20:00 12/29/2017 23:28:00 DIS Emergency SATHISH ARENAS [id number] 12/19/2017 16:24:00 12/19/2017 23:59:59 CLS Outpatient CISCO PRADO [id number] 10/21/2017 10:29:00 12/05/2017 09:18:00 DIS Outpatient Laine MERLOS [id number] 11/24/2017 13:25:00 11/24/2017 14:37:00 DIS Emergency NORBERTO HUDSON [id number] 10/10/2017 14:10:00 10/10/2017 14:10:00 DIS Outpatient BIANKA ENCINAS [id number] 08/19/2017 08:16:00 08/19/2017 08:16:00 DIS Outpatient SLIEF, BIANKA [id number] 08/08/2017 18:54:00 08/08/2017 20:28:00 DIS Emergency CECILIO LOVE [id number] 07/19/2017 13:01:00 07/19/2017 23:59:59 CLS Outpatient DEMETRI SWEENEY [id number] 07/07/2017 14:05:00 07/07/2017 15:03:00 DIS Emergency NORBERTO HUDSON [id number] 07/04/2017 14:14:00 07/04/2017 23:59:59 CLS Outpatient Laine MERLOS [id number] 06/27/2017 12:41:00 06/27/2017 15:17:00 DIS Emergency SATHISH ARENAS [id number] 06/18/2017 13:10:00 06/18/2017 13:43:00 DIS Emergency SATHISH ARENAS [id number] 05/06/2017 17:10:00 05/06/2017 17:50:00 DIS Emergency KEDAR CASTILLO [id number] 03/26/2017 14:59:00 03/26/2017 23:59:59 CLS Outpatient CISCO PRADO [id number] 03/07/2017 10:35:00 03/07/2017 23:59:59 CLS Outpatient CISCO PRADO [id number] 02/15/2017 17:23:00 02/15/2017 18:25:00 DIS Emergency KEDAR CASTILLO [facility] 251 [id number] 12/27/2016 09:59:00 12/30/2016 14:25:00 DIS Inpatient CISCO PRADO [facility] 145 [id number] 11/15/2016 14:51:00 11/15/2016 14:51:00 DIS Outpatient MITA LESLIE [id number] 10/15/2016 16:04:00 10/15/2016 23:59:59 CLS Outpatient SLIEF, BIANKA [id number] 10/09/2016 08:56:00 10/09/2016 08:56:00 DIS Outpatient NOEMI, CISCO SHIN [id number] 08/14/2016 09:40:00 09/18/2016 14:49:00 DIS Outpatient NOEMICISCO [id number] 08/26/2016 14:56:00 08/26/2016 16:43:00 DIS Emergency DEEPASATHISH Cee [id number] 08/24/2016 15:12:00 08/24/2016 15:35:00 DIS Emergency DEEPASATHISH PEREZ [id number] 08/20/2016 10:24:00 08/20/2016 23:59:59 CLS Outpatient SLIEF, BIANKA [id number] 07/25/2016 23:54:00 07/26/2016 01:25:00 DIS Emergency NORBERTO HUDSON [id number] 07/06/2016 10:03:00 07/06/2016 10:46:00 DIS Emergency CECILIO LOVE [id number] 06/25/2016 10:06:00 06/25/2016 23:59:59 CLS Outpatient Deion WRIGHT [id number] 06/08/2016 12:04:00 06/08/2016 23:59:59 CLS Outpatient ALBERT FRANCOIS [id number] 05/25/2016 16:37:00 05/25/2016 18:18:00 DIS Emergency SHAE SEO [id number] 05/05/2016 15:26:00 05/05/2016 17:24:00 DIS Emergency NORBERTO HUDSON [id number] 01/26/2016 15:12:00 01/26/2016 17:07:00 DIS Emergency NORBETRO HUDSON [id number] 01/13/2016 10:31:00 01/13/2016 23:59:59 CLS Outpatient ALBERT FRANCOIS [id number] 12/01/2015 21:43:00 12/01/2015 22:39:00 DIS Emergency NORBERTO HUDSON [id number] 01/28/2018 10:53:00 Document Registration [id number] 07/10/2016 00:00:00 07/10/2016 23:59:59 CLS Outpatient Ramu Jorgensen [facility] O [id number] 01/28/2018 10:53:00 Document Registration [id number] 01/15/2018 15:42:00 Document Registration [id number] 01/14/2018 20:20:00 Document Registration [id number] 01/10/2018 10:55:00 Document Registration [id number] 12/29/2017 22:20:00 Document Registration [id number] 12/19/2017 16:24:00 Document Registration [id number] 11/24/2017 13:25:00 Document Registration [id number] 08/08/2017 18:54:00 Document Registration [id number] 07/19/2017 13:01:00 Document Registration [id number] 07/07/2017 14:05:00 Document Registration [id number] 06/27/2017 12:41:00 Document Registration [id number] 03/26/2017 14:59:00 Document Registration [id number] 03/07/2017 10:35:00 Document Registration [id number] 12/27/2016 08:17:00 Document Registration [id number] 11/15/2016 14:51:00 Document Registration [id number] 08/26/2016 14:56:00 Document Registration [id number] 08/20/2016 10:24:00 Document Registration [id number] 07/25/2016 23:54:00 Document Registration [id number] 05/25/2016 16:37:00 Document Registration [id number] 05/05/2016 15:26:00 Document Registration [id number] 01/26/2016 15:12:00 Document Registration [id number] 01/13/2016 10:31:00 Document Registration [id number] 12/04/2017 16:03:53 Document Registration [id number] 01/16/2018 14:45:00 01/16/2018 23:59:59 CLS Outpatient [facility] [id number] 12/19/2017 14:30:00 Document Registration [id number] 07/19/2017 12:30:00 Document Registration [id number] 03/26/2017 15:15:00 Document Registration [id number] 03/26/2017 09:59:00 Document Registration [id number] 03/07/2017 10:35:00 Document Registration [id number] 11/18/2017 20:28:00 11/22/2017 12:47:45 DIS Outpatient KWADWO JONES [id number]
== END 2018-02-06 12:00 | disposition home or self-care (01) ==
LOC: EDUNIT# 19:56 → ER 19:58 → UNDOADMOB 21:07 → ICU 21:07 → CATH 22:16 → ICU 22:16 → UNDODISOB 02-06 12:00 → CATH 02-06 12:00
PROVIDERS: ATTEND Internal Medicine
DX: I25.110 Atherosclerotic heart disease of native coronary artery with unstable angina pectoris (principal); R06.00 Dyspnea, unspecified; E66.09 Other obesity due to excess calories; J44.1 Chronic obstructive pulmonary disease with (acute) exacerbation; G47.33 Obstructive sleep apnea (adult) (pediatric); I10 Essential (primary) hypertension; Z68.33 Body mass index [BMI] 33.0-33.9, adult; Z87.891 Personal history of nicotine dependence; M81.0 Age-related osteoporosis without current pathological fracture; K59.09 Other constipation; E03.9 Hypothyroidism, unspecified; E78.5 Hyperlipidemia, unspecified; F79 Unspecified intellectual disabilities
CPT/HCPCS: 36415; 71045; 80053; 80061; 82150; 82550; 82553; 83690; 83735; 83874; 83880; 84484; 85007; 85025; 85027; 85610; 85730; 93005; 93041; 93306; 93458; 94640; 94664; 94760; 94761